=== PATIENT | male | born 1945 | race Caucasian/White ===

== ENCOUNTER 2023-08-28 12:19 | Outpatient (OUT) | payer MEDICARE, OTHER, SELFPAY ==
--- NOTE | 2023-08-28 12:41 | CT_ITS ---
[address] [address] Patient Name: [place] MCMAHAN MRN: [id number] date: 1945 Sex: M Assigned Patient Location: LAB Current Patient Location: Accession/Order Number: [id number] Exam Date: 08/28/2023 13:15 Report Date: 08/29/2023 06:25 At the request of: WAYLON LEE Procedure: CT abdomen pelvis wo/w con EXAMINATION: CT abdomen pelvis wo/w con HISTORY: Gross Hematuria R31.0 COMPARISON: No relevant comparison available. TECHNIQUE: Axial, Coronal, and Sagittal images were obtained without and/or with IV contrast as indicated by examination type. Dose reduction techniques were achieved by using automated exposure control and/or adjustment of mA and/or kV according to patient size and/or use of iterative reconstruction technique. FINDINGS: LUNG BASES: No visible pulmonary or pleural disease. LIVER: No enlargement, atrophy, suspicious density, or significant focal lesion. BILIARY: No dilatation or calcification. PANCREAS: No lesion, fluid collection, or abnormal duct dilatation. SPLEEN: No enlargement or focal lesion. ADRENALS: No mass or enlargement. KIDNEYS: No mass, obstruction, or calcification. BOWEL/MESENTERY: No visible mass, obstruction, or bowel wall thickening. AORTA/VASCULAR: 4.1 cm fusiform aneurysmal dilation of infrarenal aorta. Mild atherosclerotic disease. RETROPERITONEUM: No mass or adenopathy. LYMPH NODES: No adenopathy. URINARY BLADDER: No visible focal wall thickening, lesion, or calculus. PELVIC ORGANS: No visible mass. Pelvic organs appropriate for patient age. ABDOMINAL WALL: No mass or hernia. BONES: No bony lesion or fracture. OTHER: Negative. CT/CT abdomen pelvis wo/w con IMPRESSION: 1. No urinary tract calculi, mass, obstructive uropathy. 2. 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 3. Unremarkable urinary bladder. No specific findings to account for patient's symptoms. Electronically authenticated by: ROQUE HERNANDEZ Date: 08/29/2023 06:25
[2023-08-28 12:50] LABS: Estimated GFR (African America 56 (>=60); Estimated GFR (Non-African Ame 46 (>=60)
== END 2023-08-28 12:20 | disposition home or self-care (01) ==
LOC: LAB 12:24
PROVIDERS: PCP Family Medicine; Visit Provider Nurse Practitioner
DX: C61 Malignant neoplasm of prostate (principal); R31.0 Gross hematuria; N20.0 Calculus of kidney; I71.9 Aortic aneurysm of unspecified site, without rupture
CPT/HCPCS: 36415; 74178; 82565; 84520; Q9966

== ENCOUNTER 2023-09-19 08:23 | Day surgery (SDC) | payer MEDICARE, OTHER, SELFPAY ==
[2023-09-19 09:30] VITALS: BP 131/58; BP 134/65; PULSE 53; PULSE 84; O2SAT 100
[2023-09-19] MEDS: LIDOCAINE 2% JELLY 10 ML UR (09:31)
--- NOTE | 2023-09-19 09:52 | PM.URSON ---
Urology Surgery Operative Note Operative Note Procedure Date: 09/19/23 Time Out Performed: yes Pre-op Diagnosis: History of high-grade invasive TCC of the bladder Post-op Diagnosis: same as pre-op Procedures performed: 1. Cystoscopy. 2. Bladder wash for cytology and FISH. Anesthesia: local Primary Surgeon: Akbar Morales Complications: None Estimated blood loss (mL): 0 Findings: No bladder tumors. Specimens: Bladder wash for cytology and FISH Indications for Procedures: This gentleman has a history of high-grade noninvasive TCC of the bladder diagnosed in . He did have a recurrence in 21 which was high-grade noninvasive. He has undergone BCG treatments. The last one was about a year ago. He now presents for an annual surveillance cystoscopy. He has signed an informed consent after risks were explained. Detailed description of Procedure: The patient was kept on the gurney bed and brought into the Endo suite. He was in the supine position. Timeout was done by all parties in the room. We all agreed upon the patient's identification and the planned procedures for this patient. Genitalia were sterilely prepped and draped in the usual fashion. 2% lidocaine gel was passed per urethra. I started by passing a flexible cystoscope per urethra and into the bladder. The anterior urethra was normal. The prostatic urethra showed bilobar obstruction. Panendoscopy in the bladder revealed high-grade trabeculation with open diverticuli formation. There was no evidence of tumor formation or mucosal lesions. The scope was retroverted upon itself and no new findings were noted. A vigorous wash was taken and sent for cytology and FISH. The scope was then removed. He was then discharged to home.
== END 2023-09-19 09:59 | disposition home or self-care (01) ==
PROVIDERS: PCP Family Medicine; Visit Provider Urology
PROC: (CPT 51700; principal; 2023-09-19 09:10)
DX: R31.0 Gross hematuria (principal); Z85.46 Personal history of malignant neoplasm of prostate; C67.9 Malignant neoplasm of bladder, unspecified; N32.89 Other specified disorders of bladder; I10 Essential (primary) hypertension; E78.5 Hyperlipidemia, unspecified; K21.9 Gastro-esophageal reflux disease without esophagitis; Z87.891 Personal history of nicotine dependence
CPT/HCPCS: 51700; 52000; 88112; 99999

== ENCOUNTER 2024-12-11 10:20 | Outpatient (OUT) | payer MEDICARE, SELFPAY ==
--- OUTSIDE RECORDS SUMMARY | 2024-12-11 05:14 | XMS_ITS | Continuity of Care Document ---
Author Organization [facility] Address [address] [place] [address] Phone Care Team Providers Care Union Carpenter Name Role Phone Matt Black DO Primary Care Provider Altaf Das MD Attending Provider Carlo Pichardo Referring Provider [phone] Lashawn Pineda APRN Attending Provider Juan Miguel Golden PA-C Emergency Provider [phone] Ena Lozoya Attending Provider Unavailab Radha Jones MD Attending Provider Matt Black DO Attending Provider [phone] Carlo Pichardo Attending Provider [phone] Care Teams Patient Care Team Team Status: Active Member Role/Relationship Status Dates Radha Ames MD Home Appliance Tech Active Rachel Alvarenga Care ProviderActive Visit Care Team Team Status: Inactive Member Role/Relationship Status Dates Matt Black DO Primary Care Provider Active S tart: September 19, 2024 End: September 19, 2024Erika Pollockending ProviderActiveStart: September 19, 2024 End: September 19, 2024 Visit Care Team Team Status: Active Member Role/Relationship Status Dates Matt Black DO Primary Care Provider Active S tart: September 19, 2024 Altaf Das , MDAttending ProviderActiveStart: September 19, 2024 Bud Neely ProviderActiveStart: September 19, 2024 Visit Care Team Team Status: Inactive Member Role/Relationship Status Dates Matt Black DO Primary Care Provider Active S tart: October 17, 2024 End: October 17, 2024Lashawn Pineda APRN NP-CAttending Provider ActiveStart: October 17, 2024 End: October 17, 2024 Visit Care Team Team Status: Inactive Member Role/Relationship Status Dates Matt Black DO Primary Care Provider Active S tart: October 21, 2024 End: October 21, 2024BRIDGET Mock-Emmanuelle ProviderActiveStart: October 21, 2024 End: October 21, 2024 Visit Care Team Team Status: Active Member Role/Relationship Status Dates Matt Black DO Primary Care Provider Active S tart: October 22, 2024 ELAN PathakAAttenilan ProviderActiveStart: October 22, 2024 Visit Care Team Team Status: Inactive Member Role/Relationship Status Dates Matt Black DO Primary Care Provider Active S tart: November 07, 2024 End: November 07, 2024Erika Martinezending ProviderActiveStart: November 07, 2024 End: November 07, 2024 Visit Care Team Team Status: Inactive Member Role/Relationship Status Dates Matt Black DO Primary Care Provider Active S tart: November 07, 2024 End: November 07, 2024Radha Ames MDAttending ProviderActiveStart: November 07, 2024 End: November 07, 2024 Visit Care Team Team Status: Inactive Member Role/Relationship Status Dates Matt Black DO Primary Care Provider Active S tart: November 25, 2024 End: November 25, 2024Dasingh Black DOAttoh ProviderActiveStart: November 25, 2024 End: November 25, 2024 Visit Care Team Team Status: Inactive Member Role/Relationship Status Dates Matt Black DO Primary Care Provider Active S tart: November 26, 2024 End: November 26christo Pichardo MDAttending ProviderActiveStart: November 26, 2024 End: November 26, 2024 Patient Care Team Team Status: Inactive Member Role/Relationship Status Dates Matt Black DO Primary Care Provider Active S tart: December 11, 2024 End: December 11, 2024Dasingh Black DOAttending ProviderActiveStart: December 11, 2024 End: December 11, 2024 Chief Complaint and Reason for Visit Chief Complaint Admit Date Follow Up 6 Months September 19, 2024 10 :28am Bence Long Proteinuria September 19 10:29am Left forearm abrasion October 17 9:13am Large lump on lt arm October 21 3:37pm Amb Documentation October 22, 2024 11:38am 6 month f/u November 07, 2024 12 :49pm I48.91 November 07, 2024 12 :53pm Z12.11 November 25, 2024 6 :00pm d50.9 d64.9 e78.5 r73.9 r64.4 z79.899 Oc tob2024 8:49am review labs December 11, 2024 9 :14am Reason for Visit Admit Date Anemia of renal disease September 19 10:28am Bence Long protein September 19, 2024 10 :28am CKD (chronic kidney disease) stage 3, GF R 30-59 ml/min September 19, 2024 10:28am Proteinuria September 19, 2024 10 :28am Skin tear October 17, 2024 9:13am CKD (chronic kidney disease) stage 3, GF R 30-59 ml/min November 07, 2024 12:49pm Hyperlipidemia November 07, 2024 12 :49pm Hypertension November 07, 2024 12 :49pm Irregular heart beat November 07, 2024 1 2:49pm Persistent atrial fibrillation November 072024 12:49pm Abnormal thyroid stimulating hormone (TS H) level December 11, 2024 9:14am Anemia December 11, 2024 9 :14am Atrial fibrillation December 11, 2024 9 :14am Elevated alkaline phosphatase level Nove 2024 9:14am Elevated PSA December 11, 2024 9 :14am Hyperglycemia December 11, 2024 9 :14am Hyperlipidemia December 11, 2024 9 :14am Hypertension December 11, 2024 9 :14am Lumbar pain December 11, 2024 9 :14am Other abnormal blood chemistry December 11, 2024 9:14am Positive fecal occult blood test Novembe r 2024 9:14am Weight gain December 11, 2024 9 :14am Allergies, Adverse Reactions, Alerts Allergen Type Severity Reaction Last Updated Verified Status Comments nafcillin Adverse Reaction Severe Unknown Reaction December 11, 2024 9:21am Yes Active [place] Social History Smoking Status Status Start Date End Date Date of Observa tion Ex-smoker (finding) October 21, 2024 6:09pm Observation Status Observation Response Date of Response Legal Sex Male (finding) Sex Assigned At BirthMaleJuly 1945 Family History Relationship Condition Age at Onset Recorded Date/T vanessa father Unknown CardiomyopathyUnknownmotherDeceasedUnknownDiabetes mellitusUnknownbrotherAtrial fibrillationUnknown Problems Active Problems Problem Diagnosis/Recorded Date Onset Date Stat us Irregular heart beat June 27, 2023 9:01am Unknown Active Elevated PSA June 26, 2023 4:53pm Unknown Active Elevated alkaline phosphatase level June 27, 2023 8:3 7am Unknown Active Acute cough June 11, 2024 1:24pm Unknown Active Secondary hyperparathyroidism June 26, 2023 4:53pm Un known Active Shortness of breath June 27, 2023 8:50am Unknown Active Hemoptysis May 06, 2017 1:06pm Unknown Acti ve Bladder cancer April 19, 2023 10:29am Unknown A ctive Bence Long protein January 01, 2024 9:39pm Unknown Active CKD (chronic kidney disease) stage 3, GFR 30-59 ml/min June 26, 2023 4:53pm Unknown Active Anemia June 27, 2023 8:36am Unknown Active Atrial fibrillation July 31, 2023 10:34am Unknown Active Hypertensive chronic kidney disease with stage 1 through stage 4 chronic kidney disease, or unspecified chronic kidney disease December 18, 2023 7:57am Unknown Active Hyperglycemia June 27, 2023 8:36am Unknown Activ e Hyperlipidemia April 19, 2023 10:20am Unknown A ctive Hyperuricemia December 18, 2023 7:58am Unknown Active Other abnormal blood chemistry June 27, 2023 8:37am U nknown Active Proteinuria December 18, 2023 7:58am Unknown A ctive Laceration of left lower ext remity excluding thigh July 27, 2023 12:42pm Unknown Active Skin tear October 17, 2024 8:45am Unknown Active Weight gain December 11, 2024 9:46am Unknown Ac tive Abnormal thyroid stimulating hormone (TSH) level December 11, 2024 9:47am Unknown Active Persistent atrial fibrillation August 28, 2023 4:17pm Unknown Active Body aches June 11, 2024 1:28pm Unknown Active Prediabetes December 18, 2023 7:58am Unknown A ctive Lumbar pain December 11, 2024 9:43am Unknown Ac tive Foot drop, right April 19, 2023 10:30am Unknown Active Positive fecal occult blood test December 11, 2024 9: 33am Unknown Active Abdominal aortic aneurysm (A AA) 3.0 cm to 5.5 cm in diameter in male January 02, 2024 12:28pm Unknown Ac tive Anemia of renal disease December 18, 2023 7:57am Unk nown Active Hypertension April 19, 2023 10:20am Unknown Act zelalem Inactive/Resolved Problems Problem Diagnosis/Recorded Date Onset Date Stat us [place] (acute kidney injury) June 18, 2024 5:58pm Unknow n Resolved Elevated brain natriuretic p eptide (BNP) level June 27, 2023 12:15pm Unknown Resolved Fatigue June 27, 2023 8:50am Unknown Resolv ed Hematoma October 21, 2024 5:07pm Unknown Resolved Cough June 18, 2024 5:54pm Unknown Resolv ed Abnormal laboratory test June 18, 2024 5:54pm Unknown Resolved GERD (gastroesophageal reflu x disease) June 26, 2023 4:53pm Unknown Resolved Atrial fibrillation with RVR June 27, 2023 11:51am Un known Resolved Contusion of knee, left January 15, 2024 2:42pm Unkn own Resolved Hypomagnesemia June 27, 2023 12:16pm Unknown Res olved Medications Medication Status Dose Units Route Directions Qty Days Refills S tart Date Stop Date End Date Reason(s) Instructions Adherence Omeprazole 40 mg capsule,delayed release(DR/EC) Discontinued 40 MG PO Daily April 17, 2023 9:42amMarch 2023 9:43amOmeprazole 40 mg capsule,delayed release(DR/EC)Arifboraqjqo79VFAPDnspw588Xerdq 2023 9:43amMarch 2024 9:15amRivaroxaban (Xarelto) 20 mg afqniaNmqsgmjnqcnk58WJTXWvkca sqfrzgx76767Mmt 2023 11:00pmMay 2023 3:25pmmust administer with evening mealApixaban (Eliquis) 5 mg qcmprjNvfocnugnnis4LBGGLtqnn fpyti628308Puvj 2023 11:51am July 31, 2023 9:16amRivaroxaban (Xarelto) 20 mg nujywgOdojlaoqazcd97QZDGUkafm kixcavd38342Agur 2023 10:50amJuly 2023 9:12ammust administer with evening mealRivaroxaban (Xarelto) 20 mg dkgywxZxetbzljrgyk01IUWUQltwh sxyagox82 903July 2023 9:11amJanuary 2024 12:43pmmust administer with evening mealRosuvastatin 10 mg zrzpjkWeivnbrnolhj39FAXAPudqw700Kexeuv 2023 10:33am June 10, 2024 11:03amAmlodipine 10 mg amskgdLhzdmleclgth93UEXYBbkfj92188Wgivlw 2023 12:49pmFebruary 2024 10:49amAmiodarone 200 mg tabletDiscontinued 739YUDTRgkfq04637Oaiuyt 2023 8:15amNovember 2023 3:53pmMetoprolol Succinate 25 mg tablet extended release 24 ziVblzzxhiuzwg58XHAJJkxhl88075 October 23, 2023 7:27amMarch 2024 11:11amAmiodarone 200 mg tablet Wsveuhlgxcce478VLCVGrqdv15910Arsatysf 11th, 2024 3:53pmFebruary 2024 1:05pmLisinopril 5 mg lhwajrFzovnebkdlzj3FKVJGzqxm812Ocqnedlv 2023 2:42pm December 11, 2024 10:10amRivaroxaban (Xarelto) 20 mg igyaqsHnmxhr95OHZBYchqn tmuvqdv54180Aheolym 2024 12:42pmmust administer with evening mealComplies with drug therapyAmlodipine 10 mg fivscdDeqldkmjkdaz77YJEAQmrym80695Woderyxr 2024 10:48amMay 2024 10:44amAmiodarone 200 mg lrkvikSgrdzeotgpbj033BG EUXrlvs84580Edieuhcv 2024 1:05pmApril 2024 8:27amMetoprolol Succinate 25 mg tablet extended release 24 cgGogdkftjjqjr26KJTSEmrnj73590Pfqyt 2024 11:11amSeptember 2024 2:24pmOmeprazole 40 mg capsule,delayed release(DR/EC)Ygbbmj03MWZJInjey194Tzerd 2024 9:15amComplies with drug therapyAmiodarone 200 mg ewgkymCtxcaqasdzpl730TMZAKzbzv12263Iaaqo 2024 8:27amJuly 2024 8:51amAmlodipine 10 mg khoeqzJdneod68ZOCKQmoka48213Psc 2024 10:44amComplies with drug therapyRosuvastatin 10 mg tabletDiscontinued 0.ROUTE.LWBCAVM298Fqh 5th, 2025 11:03amMay 2024 8:11amTake 1 tablet by mouth once dailyPrednisone 20 mg mwtbmmLfovspcwhjcc2FE.with food or dtur8460DqlJune 11, 2024 3:01pmMay 2024 8:09amtake 3 tablets a day x3 days, 2 tabs a day x3 days and then 1 tab a day x3 days orally WITH FOOD ORMILK;Benzonatate 100 mg cwjezgvJupoqg6TSIzxnp times pnoyc038Njr2024 3:02pmtake 2 (100 MG) capsules orally three times daily;Complies with drug therapyAmiodarone 200 mg tablet Vhupdm180IAAZUztim02131Dozo 2024 8:51amComplies with drug therapy Metoprolol Succinate 25 mg tablet extended release 24 jnZirssljumhqd23WCZTYtrsa 38377Quvddbeut 2024 2:24pmNov2024 9:48amSod Picosulf-Mag Ox- Citric Ac (Clenpiq) 10 mg-3.5 gram- 12 gram/175 mL wviwjoswBvmlrototqki942OXTW Ppgbx73596Lqcyfak 2024 11:00pmNovember 2024 9:22amTake the first dose at 3:00 p.m. the day before the colonoscopy, take the second dose at 9:00 p.m. t he day before the colonoscopyMetoprolol Succinate 25 mg tablet extended release 24 cbVqtjppwugziu44PQWDVnapy92506Xdey 23rd, 2024 11:00pmSeptember 2023 7:28amRivaroxaban (Xarelto) 20 mg txbuboIbgecvstrgho47GAXPKcvwo qmaijgr41634Pamg 23rd, 2024 11:00pm[facility]20[facility] 10:51ammust administer with evening meal Amlodipine 5 mg YmwfwxUjbizjkyigbu3DSGHOzpmdAvmdy 2017 11:00pmJuly 2023 3:01pmOmeprazole 40 mg Capsule,Delayed Release(Dr/Ec)Xmpqsidrpfln75FGDM DailyAccess [facility] 2017 11[facility]00pm[facility] 2023 9:42amAspirin 81 mg Tablet,Delayed Release (Dr/Ec)Kvccbmoaygcr25OEFAVzmqmNlejr 2017 11:00pmOsage 2023 8:27amMinocycline 100 mg YhgvxhYkmhvcwvyeub538GYWOXjngjEywdy 2017 11:00pm April 19, 2023 9:31amRosuvastatin 5 mg MwhdzkRvtkicxyvkkq8WZAGCpjtmJuhca 2017 11:00pm[facility] 2023 9:30amAmoxicillin-Pot Clavulanate (Augmentin) 875- 125 mg rtrhzjWlwwolgppxxl5CEXJLBmodz zkuot838Fjoiy 2017 11:00pm[facility] 2023 10:14amApixaban (Eliquis) 5 mg VxcmuxDmmrspejvngr4LDCBHdrit ugkya28145XffJune 29, 2023 11:00pm[facility]2023 11:51amMetoprolol Succinate 50 mg Tablet Extended Release 24 MgChlozpbbkyda15JGHAKprfm ixuaq12483Dnq 2023 11:00pm July 31, 2023 9:18amAmiodarone 200 mg cxqfpcGcfxlijxedmm897ZASHQjywd somvz4877 0June 29, 2023 11:00pm[facility]2023 9:17amAmiodarone 200 mg tablet Xndgbjnijymt398GSYISpsrh82926Jqp 2023 11:00pmAugust 2023 8:15am Hydrocodone-Acetaminophen 5-325 mg wouwefHqguyuagxrgs8TXZHKVahar 6 hours as needed for znys0315Txmadmqj 2023May 2024 1:12pmContusion of left knee Contusion of left knee, initial encounterLisinopril 5 mg cmnxhuBvgkzylpvwpo5PJVP Dailyy 2023 11:00pmDecember 2023 2:42pmCoenzyme Q10 (Co Q-10) 100 mg wjpunbzWqtpiytyebzg159FUYFXwawuWia 2023 11:00pmMay 2024 8:11am Zinc and vitamin cDiscontinuedPOy 2023 11:00pmJuly 2023 2:08pm probioticDiscontinuedPOMay 2023 11:00pmJuly 2023 2:07pmVitamin d 3 DiscontinuedPOJune 26, 2023 11:00pmJuly 2023 2:07pmMinocycline 100 mg wgdgujjPcrbuf788KZIYPtbsqQvx 2023 11:00pmComplies with drug therapy Diphenhydramine-Acetaminophen (Tylenol Pm Extra Strength) 25-500 mg tabletActive 1TABPODaily at bedtime as needed for sleepJune 26, 2023 11:00pmComplies with drug therapyCoenzyme Q10 (Co Q-10) 100 mg cxsdmrdJiciup381SGUMAzgmaPfa 2024 8:08amComplies with drug therapyZinc Acetate 50 mg (zinc) vowsszfRfbqog07NX PODailyJuly 2023 11:00pmComplies with drug therapyAscorbate Calcium (Vitamin C) 500 mg zqjdktVegcgw834NAEBIrxbbLcek 2023 11:00pmComplies with drug therapyCholecalciferol (Vitamin D3) 125 mcg (5,000 unit) urjdrjzAbguhz945 MCGPODailyJuly 2023 11:00pmComplies with drug therapyAmlodipine 10 mg ptdacmBgwptzckzyxx13VCBKUgfqw58946Wpim 2023 11:00pmAugust 2023 12:50pmRosuvastatin 10 mg thzcwnNnavsu64ZTCQYqnneOwi 2024 8:09amComplies with drug therapyAscorbic Acid (Vitamin C) 500 mg bdarnidViiimifekkhi2ROHCFRt DirectedMarch 2023 11:00pmOctober 2023 12:25pmFreeTextSig: as directed Orally; Note: Source Status: Taking; Provider: Jeremy Birmingham Rosuvastatin 10 mg klzuclSlmpmssfwhqt1GUEJJDsohqOmmts 2023 11:00pmMay 2023 8:52amFreeTextSig: Take 1 tablet by mouth once daily for 90 days; Note: Source Status: Taking; Provider: Wayne Gutierrez ( ) Minocycline 50 mg capsuleDiscontinuedMGPOMarch 2023 11:00pmMay 2023 8:32amFreeTextSi capsule Orally qd; Note: Source Status: Taking; Provider: Marino Gomes ( )Acetaminophen (Tylenol Arthritis Pain) 650 mg tablet extended wxvmhccNlogou5HCEYYXhgwa 8 hoursMarch 2023 11:00pm FreeTextSi tablets as needed Orally every 8 hrs; Note: Source Status: Taking; Provider: Marino Gomes ( )Complies with drug therapy Gabapentin 600 mg afzmzgQsluqypppuwa1ZMQJAGuvzcCilkr 2023 11:00pmMarch 2023 10:15amFreeTextSi tablet Orally Once a day; Note: Source Status: Taking; Provider: Marino Gomes ( )Pziojjvp-Qdi-Nehnk-Vit K-Lycop (Men's 50 Plus Multivitamin) 400-20-370 mcg dffooqQpnets0SPDXJYuclyFizuf 2023 11:00pmComplies with drug therapyOmega 7-Nhg-Yxw-Fish Oil (Fish Oil) 1,200 (144-216) mg nuejkyfJkbzsx5JLEAUCujgqPnozv 2023 11:00pmComplies with drug therapyMinocycline 50 mg ihslvqlWycbjiuzgkxr76CHKIHrd 2023 8:31amMay 2023 8:51amRosuvastatin 10 mg zvccndYekzwnrgnvir52XMVZLfpgbJyd 2023 8:52am September 20, 2023 10:33amTamsulosin 0.4 mg capsuleDiscontinuedMGPOMay 2024 11:00pmMay 2024 8:55amFinasteride 5 mg qeebmiLqcpus7WVXAOaepsFtd 5th, 2025 11:00pmComplies with drug therapyPrednisone 20 mg wnfnreHjtqcttpvksf6DK.with food or nxyw5444QnhJune 10, 2024 11:00pmMa2024 3:01pmtake 3 tablets a day x3 days, 2 tabs a day x3 days and then 1 tab a day x3 days orally WITH FOOD ORMILK; Benzonatate 100 mg redetdpUqkmghrvbnyd1YBAmlhn times yamns476PmqJune 10, 2024 11:00pmMa2024 3:02pmtake 2 (100 MG) capsules orally three times daily; Metoprolol Succinate 25 mg tablet extended release 24 nbBvxxqo66.6LCQWKrvwx71780 December 11, 2024 9:42amComplies with drug therapyLisinopril 5 mg tabletActive5 WOUOJdnmx400Vdwbdexc 5th, 2025 10:10amComplies with drug therapyMupirocin 2 % vusovpbrHecgkqnlzlmb5CTZTSIZLBENZWUitmr ulmkf936Eaneobnps 10th, 2025 11:00pm December 11, 2024 9:23am Immunizations Immunization Event Date Not Given Reason Dose Number Billing Checker Lot Number Reason(s) Given Vaccine Information Statement (VIS) Detail Administration Location BCG: Bacillus calmette-nithin October 06, 2021 BCG: Bacillus calmette-guerinSeptember G: Bacillus calmette-nithin October 20CG: Bacillus calmette-guerinAugust CG: Bacillus calmette-guerinAugust CG: Bacillus calmette-guerinAugust 2022 BCG: Bacillus calmette-guerinOctober CG: Bacillus calmette-nithin November 26CG[facility] 2023Fluzone TIV High-Dose 65YR+March 20, 2015Fluzone TIV High-Dose 65YR+December 19, 2017 Fluzone QIV High-Dose 65YR+November 21, 2020Influenza, trivalentNovember 2023Influenza vaccine, quadrivalent, adjuvantedOctober 2022Influenza vaccine, quadrivalent, adjuvantedNovember 2019Influenza vaccine, quadrivalent, adjuvantedNovember 2021influenza, unspecified formulation December 19, 2017Pneumococcal Conjugate Vaccine, 13 valentOctober 2019 Pneumococcal Conjugate Vaccine, 13 valentNovember 2019Pneumococcal Polysacc. Vaccine, 23 valentOctober 2015Pneumococcal Polysacc. Vaccine, valentFebruary 2015Zoster Vaccine Recombinant, AdjuvantedOctober 2022Zoster Vaccine Recombinant, AdjuvantedJanuary 2023Tetanus, Diphtheria adult, 5 Lf pres free absFebruary 2021Tetanus, Diphtheria, Pertussis (Tdap)September 26, 2012 Procedures Procedure Date Performed Status XR bone survey February 02, 2024 1:29pm compl eted Occult Blood (FIT) November 26, 2024 cancelled Occult Blood (FIT) November 25, 2024 completed Relevant Diagnostic Tests and/or Laboratory Data Laboratory Results Test Collection Date/Time Result Date/Time Result Interpretation Reference Range Result Comment Performing Site Corrected White Blood Count September 12, 2024 8:21am September 12, 2024 8:50am 6.9 10*3/uL 4.1-10.5[facility] [id number] [address] [facility] [address]Aabzqarmz White Blood CountNovember 26, 2024 8:30amOct2024 9:09am6.8 10*3/uL4.1-10.5FMercy [facility] [id number] [address] [facility] [address]Oatnesktoem WBC CountAugus2024 8:21amAugu2024 8:50am6.9 10*3/uL4.1-10.5FS[facility] [id number] [address] [facility] [address]Hyfarpgcyrq WBC CountOctober 2024 8:30amOctober 2024 9:09am6.8 10*3/uL4.1-10.5FS[facility] [id number] [address] [facility] [address]Qlw Blood CountAugust 2024 8:21amAugust 2024 8:50am 3.86 10*6/uLBelow low normal3.90-5.60[facility] [id number] [address] [facility] [address]Rso Blood CountOctober 2024 8:30amOctober 2024 9:09am4.03 10*6/uL3.90-5.60[facility] [id number] [address] [facility] [address]UfmpyjhefeSmcsmx 2024 8:21amAugust 2024 8:50am11.0 g/dLBelow low .0-17.0[facility] [id number] [address] [place] [address]PgixggkrbkOhvbmpf 2024 8:30amOctober 2024 9:09am 11.6 g/dLBelow low uicwnv85.0-17.0[facility] [id number] [address] [place] [address]WewlcpjuuoBsunvy 2024 8:21amAugust 2024 8:50am33.9 % Below low yqvmau29.8-50.0[facility] [id number] [address] [place] [address]EeipqosdsbKtmqktd 2024 8:30amOctober 2024 9:09am 35.1 %Below low cwxfif82.8-50.0[facility] [id number] [address] [place] [address]Innn Corpuscular VolumeAugust 2024 8:21amAugust 2024 8:50am88.0 fL83.5-101[facility] [id number] [address] [facility] [address]Qpty Corpuscular VolumeOctober 2024 8:30amOctober 2024 9:09am87.2 fL83.5-101[facility] [id number] [address] [place] [address]Ftwo Corpuscular HemoglobinAugust 2024 8:21amAugust 2024 8:50am28.5 pg27.5-35.2FSCC[facility] [id number] [address] [place] [address]54[address]Bgzs Corpuscular HemoglobinOctober 2024 8:30amOctober 2024 9:09am28.8 pg27.5-35.2FS[facility] [id number] [address] [place] [address]28[address]Ngqt Corpuscular Hemoglobin ConcentAugust 2024 8:21am September 12, 2024 8:50am32.5 g/dL32.5-35.6FS[facility] [id number] [address] [place] [address] 737[address]Ukzi Corpuscular Hemoglobin ConcentOctober 2024 8:30am October 2024 9:09am33.0 g/dL32.5-35.6FS[facility] [id number] [address] [place] [address]Riy Cell Distribution WidthAugust 2024 8:21amAugust 2024 8:50am16.0 %Above high ruqkbh97.0-14.8[facility] [id number] [address] [place] [address] 86424Ggz Cell Distribution WidthOctober 2024 8:30amOctober 2024 9:09am17.2 %Above high jotnhm43.0-14.8[facility] [id number] [address] [place] [address]Cmttwtuc CountAugust 2024 8:21amAugust 2024 8:89uj519 10*3/fD514-755DmgpnnfsyLouis [facility] [id number] [address] [place] [address] 1949[address]Chgutwii CountOctober 2024 8:30amOctober 2024 9:35kr308 10*3/yD655-549WihzpwvtyLouis [facility] [id number] [address] [facility] [place] [address]Etmb Platelet VolumeAugust 2024 8:21amAugu2024 8:50am8.5 fL6.6-10.1FS[facility] [id number] [address] [facility] [place] [place] [address]Leya Platelet VolumeOctober 2024 8:30amOctober 2024 9:09am8.9 fL6.6-10.1FS[facility] [id number] [address] [facility] [place] [address]Yrjzhcrhrpf (%) (Auto)September 12, 2024 8:2024 8:50am68.6 %.[facility] [id number] [address] [facility] [place] [address]Nynjrvkbtgt (%) (Auto)November 26, 2024 8:30amOctober 2024 9:09am70.9 %.[facility] [id number] [address] [facility] [place] [address]Nnkawwfwyai (%) (Auto)September 12, 2024 8:2024 8:50am13.4 %.[facility] [id number] [address] [facility] [place] [address]Dqdpmlnyxsg (%) (Auto)November 26, 2024 8:30amOctober 2024 9:09am13.7 %.[facility] [id number] [address] [facility] [place] [address]Geocbhdsi (%) (Auto)September 12, 2024 8:amA2024 8:50am14.3 %.[facility] [id number] [address] [facility] [place] [address]Scmfpdwzs (%) (Auto)November 26, 2024 8:30amOctober 2024 9:09am10.3 %.[facility] [id number] [address] [facility] [place] [address]Faphoplepkl (%) (Auto)September 12, 2024 8:amAugu2024 8:50am3.0 %.[facility] [id number] [address] [facility] [address]Huldxgfsvim (%) (Auto)November 26, 2024 8:30amOctober 2024 9:09am4.1 %.[facility] [id number] [address] [facility] [address]Vbbjulnqe (%) (Auto)September 12, 2024 8:212024 8:50am0.7 %.[facility] [id number] [address] [facility] [address]Xepillkse (%) (Auto)November 26, 2024 8:30amOctober 2024 9:09am1.0 %.[facility] [id number] [address] [facility] [address]Tnaoaclrj RBC Relative Count (auto)September 12, 2024 8:21am September 12, 2024 8:50am0.0 /100{WBC}0-0.5FS[facility] [id number] [address] [facility] [address]Oaqapecil RBC Relative Count (auto)November 26, 2024 8:30am November 26, 2024 9:09am0.1 /100{WBC}0-0.5FS[facility] [id number] [address] [facility] [address]Jcrxihlvrwc # (Auto)September 12, 2024 8:212024 8:50am4.7 10*3/uL1.8-7.7[facility] [id number] [address] [facility] 81901Ggfigrexevo # (Auto)November 26, 2024 8:30amOctober 2024 9:09am4.8 10*3/uL1.8-7.7[facility] [id number] [address] [facility] 52342Cchahfbupft # (Auto)September 12, 2024 8:21amAugu2024 8:50am0.9 10*3/uLBelow low normal1.00-4.8[facility] [id number] [address] [facility] 98627Yiqrkflnube # (Auto)November 26, 2024 8:30amOctober 2024 9:09am0.9 10*3/uLBelow low normal1.00-4.8[facility] [id number] [address] [facility] 55385Pvnghkffy # (Auto)September 12, 2024 8:21amAugu2024 8:50am1.0 10*3/uLAbove high normal0.0-0.8[facility] [id number] [address] [facility] 68362Alejyrzqr # (Auto)November 26, 2024 8:30amOctober 2024 9:09am0.7 10*3/uL0.0-0.8[facility] [id number] [address] [place] [id number] # (Auto)September 12, 2024 8:21amAugust 2024 8:50am0.2 10*3/uL0.0-0.45[facility] [id number] [address] [facility] 47744Xaclavjciye # (Auto)November 26, 2024 8:30amOctober 2024 9:09am0.3 10*3/uL0.0-0.45[facility] [id number] [address] [place] [id number] # (Auto)September 12, 2024 8:21amAugu2024 8:50am0.0 10*3/uL0.0-0.2[facility] [id number] [address] [facility] 56645Kgvxnajue # (Auto)November 26, 2024 8:30amOctober 2024 9:09am0.1 10*3/uL0.0-0.2[facility] [id number] [address] [facility] 71733Gloto ColorOctober 2024 8:33amOctober 2024 9:11am YellowYellowLouis Stokes [facility] [id number] [address] [place] [id number] AppearanceOctober 2024 8:33amOctober 2024 9:11amClearClearFSCCI Hospital [facility] [id number] [address] [facility] 96033Imiyg Specific GravityOctober 2024 8:33amOctober 2024 9:11am1.0271.001-1.030[facility] [id number] [address] [facility] 67868Pydhr pHOctober 2024 8:33amOctober 2024 9:11am5.5 5.0-9.0[facility] [id number] [address] [facility] 23756Dkhpv Leukocyte EsteraseOctober 2024 8:33amOctober 2024 9:11amNegativeNegativeLouis [facility] [id number] [address] [facility] 84484Oieye NitriteOctober 2024 8:33amOctober 2024 9:11am NegativeNegativeLouis [facility] [id number] [address] [facility] 18033Thumh ProteinOctober 2024 8:33amOctober 2024 9:11am Trace mg/dLAbove high normalNegK[facility] [id number] [address] [facility] 84088Jdvon Glucose (UA)November 26, 2024 8:33amOctober 2024 9:11amNormal mg/dLNormalLouis [facility] [id number] [address] [facility] 79044Dwtnk KetonesOctober 2024 8:33amOctober 2024 9:11am NegativeNegativeLouis [facility] [id number] [address] [facility] 14972Jmbqe UrobilinogenOctober 2024 8:33amOctober 2024 9:11amNormal mg/dLNormalLouis [facility] [id number] [address] [facility] 80308Bhvgb BilirubinOctober 2024 8:33amOctober 2024 9:11amNegativeNegativeLouis [facility] [id number] [address] [facility] 12823Uzsny Occult BloodOctober 2024 8:33amOctober 2024 9:11amNegativeNegativeLouis [facility] [id number] [address] [facility] 86427Uopvf RBCOctober 2024 8:33amOctober 2024 9:87hd7-3 [HPF]0-4[facility] [id number] [address] [facility] 28625Npfzo WBCOctober 2024 8:33amOctober 2024 9:59gv6-5 [HPF]0-4[facility] [id number] [address] [facility] 57242Kiacz Squamous Epithelial CellsOctober 2024 8:33amOctober 2024 9:14amN/AFSCC[facility] [id number] [address] [facility] 45020Ixrml BacteriaOctober 2024 8:33amOctober 2024 9:14amNone seen [HPF]None SeenLouis [facility] [id number] [address] [facility] 75404Fixhx Hyaline CastsOctober 2024 8:33amOctober 2024 9:27vg2-1 [LPF]0-8[facility] [id number] [address] [facility] 17480Ncfto MucusOctober 2024 8:33amOctober 2024 9:14am Rare [LPF][facility] [id number] [address] [facility] 58661Uraudqa LevelAugust 2024 8:21amAugust 2024 9:29am86 mg/gC75-979VSG recommended reference rangeRandom Glucose Reference Range is dependent on time and content of last meal. Glucose of more than 200 mg/dL in a nonstressed, ambulatory subject supports the diagnosisof Diabetes Mellitus. [facility] [id number] [address] [facility] 97025Qsqdisi LevelOctober 2024 8:30amOctober 2024 9:49am 93 mg/qW36-392IEC recommended reference rangeRandom Glucose Reference Range is dependent on time and content of last meal. Glucose of more than 200 mg/dL in a nonstressed, ambulatory subject supports the diagnosisof Diabetes Mellitus. [facility] [id number] [address] [facility] 07681Dlekh Urea NitrogenAugust 2024 8:21amAugust 2024 9:29am36 mg/dLAbove high normal7-25[facility] [id number] [address] [facility] 99903Hgvqr Urea NitrogenOctober 2024 8:30amOctober 2024 9:49am28 mg/dLAbove high normal7-25[facility] [id number] [address] [facility] 74907IkxthnlnkxDqanfq 2024 8:amAugust 2024 9:29am1.43 mg/dLAbove high normal0.70-1.30[facility] [id number] [address] [facility] 17255DaufsisiyySvkolov 2024 8:30amOctober 2024 9:49am 1.35 mg/dLAbove high normal0.70-1.30[facility] [id number] [address] [facility] 05281Scqmlempi GFR (CKD-EPI)September 12, 2024 8:2024 9:29am49.533 mL/MinLouis [facility] [id number] [address] [place] [address] 37395Pwwuiabis GFR (CKD-EPI)November 26, 2024 8:30amOctober 2024 9:49am53.076 mL/MinLouis [facility] [id number] [address] [facility] 62911Fnzggf LevelAugust 2024 8:21amAugu2024 9:82cg881 mmol/R247-250QxaogtfvpLouis [facility] [id number] [address] [place] [address] 81396Ebvqep LevelOctober 2024 8:30amOctober 2024 9:49am 139 mmol/H801-424MposspculLouis [facility] [id number] [address] [place] [address] 23269Onqkhvahy LevelAugust 2024 8:ugu2024 9:29am 5.0 mmol/L3.5-5.1[facility] [id number] [address] [facility] 76540Orzdnssim LevelOctober 2024 8:30amOctober 2024 9:49am4.5 mmol/L3.5-5.1[facility] [id number] [address] [facility] 83709Doxmkkcn LevelAugust 2024 8:21amAugust 2024 9:41ti414 mmol/A63-386JwfaacauyLouis Stokes [facility] [id number] [address] [facility] 44760Gtrtqdjo LevelOctober 2024 8:30amOctober 2024 9:52li500 mmol/L58-971GfttpynfyLouis Stokes [facility] [id number] [address] [facility] 71171Obpnij Dioxide LevelAugust 2024 8:21amAugust 2024 9:29am25.9 mmol/L21.0-31.0[facility] [id number] [address] [facility] 29017Ccwltx Dioxide LevelOctober 2024 8:30amOctober 2024 9:49am25.9 mmol/L21.0-31.0[facility] [id number] [address] [facility] 33174Tbynh GapAugust 2024 8:21amAugust 2024 9:29am12.1 mEq/L6.0-15.0[facility] [id number] [address] [facility] 06251Muabo GapOctober 2024 8:30amOctober 2024 9:49am10.6 mEq/L6.0-15.0[facility] [id number] [address] [facility] 45179Ynvwwke LevelAugust 2024 8:21amAugust 2024 9:29am9.0 mg/dL8.6-10.3[facility] [id number] [address] [facility] 90727Jfqaxvt LevelOctober 2024 8:30amOctober 2024 9:49am 8.8 mg/dL8.6-10.3[facility] [id number] [address] [facility] 31775Fbllortzux LevelOctober 2024 8:31amOctober 2024 9:47am3.6 mg/dL2.5-4.5[facility] [id number] [address] [facility] 08806Ioxyihecb LevelOctober 2024 8:31amOctober 2024 9:47am1.9 mg/dL1.9-2.7[facility] [id number] [address] [facility] 48998Amqan ProteinAugust 2024 8:21amAugust 2024 9:29am6.5 g/dL6.4-8.9[facility] [id number] [address] [facility] 78628Rucdm ProteinOctober 2024 8:30amOctober 2024 9:49am 6.3 g/dLBelow low normal6.4-8.9[facility] [id number] [address] [facility] 18453GisovvtVcbctg 2024 8:21amAugust 2024 9:29am3.9 g/dL 3.5-5.7[facility] [id number] [address] [facility] 33894XsvmqlsBgolmjr 2024 8:30amOctober 2024 9:49am4.0 g/dL3.5-5.7[facility] [id number] [address] [facility] 86868PvbgiqhlJngkgo 2024 8:21amAugust 2024 9:29am2.6 g/dL [facility] [id number] [address] [facility] 69286RgmtmxxfFvozire 2024 8:30amOctober 2024 9:49am2.3 g/dLLouis Stokes [facility] [id number] [address] [facility] 96021Fnayfyn/Globulin RatioAugust 2024 8:21amAugust 2024 9:29am1.5[facility] [id number] [address] [facility] 12739Aagqmvu/Globulin RatioOctober 2024 8:30amOctober 2024 9:49am1.7[facility] [id number] [address] [place] [address] 62096Tegap BilirubinAugust 2024 8:21amAugu2024 9:29am 0.4 mg/dL0.3-1.0[facility] [id number] [address] [facility] 78822Qxret BilirubinOctober 2024 8:30amOctober 2024 9:49am0.4 mg/dL0.3-1.0[facility] [id number] [address] [place] [address] 15867Bmxihfnzx Amino Transf (AST/SGOT)September 12, 2024 8:21amAugu2024 9:29am16 U/M59-68MlvruzfyvLouis Stokes [facility] [id number] [address] [place] [address] 63968Qqzrmajod Amino Transf (AST/SGOT)November 26, 2024 8:30am November 26, 2024 9:49am18 U/S06-61MagedmbzdLouis [facility] [id number] [address] [place] [address] 39513Waexwyj Aminotransferase (ALT/SGPT)September 12, 2024 8:21am September 12, 2024 9:29am14 U/L7-52[facility] [id number] [address] [place] [address] 93158Fzwpnis Aminotransferase (ALT/SGPT)November 26, 2024 8:30am November 26, 2024 9:49am13 U/L7-52[facility] [id number] [address] [place] [address] 77373Pitjyvzy PhosphataseAugust 2024 8:21amAugu2024 9:03fw521 U/LAbove high hibwlp81-754RlishuyrpLouis [facility] [id number] [address] [place] [address] 57163Gojeakuj PhosphataseOctober 2024 8:30amOctober 2024 9:78uy034 U/LAbove high cxtgpa42-409JgcffyhpoLouis [facility] [id number] [address] [place] [address] 01582Xeih AcidOctober 2024 8:31amOctober 2024 9:47am6.8 mg/dL4.4-7.6[facility] [id number] [address] [facility] 25167Pbxq LevelOctober 2024 8:30amOctober 2024 9:49am47 ug/dLBelow low rxmecc83-621ZzrxmvtwkLouis [facility] [id number] [address] [facility] 21018Xjnto Iron Binding CapacityOctober 2024 8:30amOctober 2024 9:57zl023 ug/hM832-956XytfpwyrkLouis [facility] [id number] [address] [place] [address] 16296Oeri SaturationOct2024 8:30amOctober 2024 9:49am17.2 %Below low nhhpho26-69CcxxomwgoLouis Stokes [facility] [id number] [address] [place] [address] 12491XtutyielemeYegbiqb 2024 8:30amOctober 2024 9:49am 196 mg/dLBelow low aftpbn518-402NfrxudkupLouis Stokes [facility] [id number] [address] [place] [address] 93374ZgkeoxkgPgdyqsf 2024 8:33amOctober 2024 10:08am 145.4 ng/mL23.9-336.2[facility] [id number] [address] [place] [address] 95748Chbkjlqkzti LevelOctober 2024 8:33amOctober 2024 9:01vu267 mg/uK442-634Rewg less than 200 mg/dl low riskChol 201-239 mg/dl borderline riskChol 240 mg/dl and greater high riskLouis Stokes [facility] [id number] [address] [place] [address] 65118ZBD CholesterolOct2024 8:33amOctober 2024 9:48am48 mg/rU10-32CSS CHOL ATP-III CLASSIFICATION Cardiovascular RiskHDL > or equal to 60 mg/dL LOWHDL < 40 mg/dL [facility] [id number] [address] [place] [address] 34393Uacaslniacevx LevelOct2024 8:33amOctober 2024 9:36bz910 mg/dLAbove high normal0-149TRIG ATP III CLASSIFICATIONTRIG less than 150 mg/dL NormalTRIG 150-199 mg/dL Borderline highTRIG 200-500 mg/dL High TRIG greater than 500 mg/dL Very highStandard traceable to the Center for Disease Co nrtrol and Prevention (CDC) test method.[facility] [id number] [address] [facility] 09312IKA Cholesterol, CalculatedOct2024 8:33amOct2024 9:48am74 mg/dL0-100LDL ATP III CLASSIFICATIONLDL less than 100 mg/dL OptimalLDL 100-129 mg/dL Near or above optimalLDL 130-159 mg/dL Borderline highLDL 160-189 mg/dL HighLDL greater than 189 mg/dL Very highLouis [facility] [id number] [address] [facility] 46144SLQM CholesterolOctober 2024 8:33amOct2024 9:48am30 mg/dLLouis Stokes [facility] [id number] [address] [facility] 93036Vggbrffgwru/HDL RatioOct2024 8:33amOct2024 9:48am3.2<5.0[facility] [id number] [address] [facility] 43882Ihwncbg Stimulating Hormone 3rd GenOct2024 8:33am November 26, 2024 10:03am6.97 u[iU]/mLAbove high normal0.45-5.33[facility] [id number] [address] [facility] 2704626-Dphohbc Vitamin D TotalOct2024 8:31amOct2024 10:15am40.1 ng/hA22-453QQTCDGY D STATUS 25(OH)VITAMIN D RANGE (ng/mL) Deficient <20 Insufficient 20 to <59Nrcsgybzet19 to 100Reference: Carmel BURGER,Daniela TINAJERO, Anastasiia CASTANEDA, et al. Evaluation,treatment, and prevention of vitamin D deficiency; an Endocrine Society clinical practice guideline. JCEM. 2010; 96(7):1911-30.[facility] [id number] [address] [facility] 93307Nacquljnlnc Hormone (Intact)November 26, 2024 8:31amOct2024 10:05am68.5 pg/nV66-47SytkmgqvhLouis [facility] [id number] [address] [place] 2700070Pharmacy Creatinine Clearance (ChemAugust 2024 8:21am September 12, 2024 9:29am55.22[facility] [id number] [address] [facility] 08250Mcdugeqw Creatinine Clearance (ChemOctober 2024 8:30am November 26, 2024 9:49amN/[facility] [id number] [address] [facility] 54519Rjqbuyoeqk W6hCnuitwu2024 8:33amOct2024 2:12pm5.8 %Above high normal4.3-5.6Increased risk for diabetes: 5.7 - 6.4diabetes: >6.4glycemic control for adults with diabetes: <7.0[facility] [id number] [address] [facility] 09333Ixexjzmag Average GlucoseOct2024 8:33amOct2024 2:16wc678 mg/dLLouis Stokes [facility] [id number] [address] [place] [address] 85717Cdeio Random CreatinineOct2024 8:33amOct2024 9:38hv645.00 mg/dLNo reference range establishedLouis [facility] [id number] [address] [facility] 16806Fbbqy Random Total ProteinOct2024 8:33amOctober 2024 9:31am34 mg/dLAbove high normal0-9[facility] [id number] [address] [place] [address] 58791Qosjc Protein/Creatinine RatioOct2024 8:33amOct2024 9:06fx243 mg/g{Cre}Above high normal0-200[facility] [id number] [address] [facility] 71666Ldwaf ImmunofixationAugust 2024 8:21amAugust 2024 11:08amComment:.Presence of monoclonal protein is unclear at this time. Suggestrepeat in 3 to 6 months if clinically indicated.[facility] Immunoglobulin GA2024 8:2024 11:43ae206 mg/dL 603-1613[facility] AA2024 8:2024 11:08am72 mg/mC38-160YktXdqd MA2024 8:2024 11:08am81 mg/jL64-162Siadbwyeu at: - [facility] [address] [id number] Director: Modesto Avila PhD, Phone: [phone] Total ProteinAugust 2024 8:2024 4:08pm6.4 g/dL6.0-8.5[facility] (Send Out)September 12, 2024 8:2024 4:08pm3.3 g/dL2.9-4.4[facility] 7th, 2025 8:2024 4:08pm0.4 g/dL0.0-0.4[facility] 7th, 2025 8:2024 4:08pm1.2 g/dLAbove high normal0.4-1.0[facility] Globulin2024 8:2024 4:08pm0.9 g/dL0.7-1.3[facility] Globulin2024 8:2024 4:08pm0.7 g/dL0.4-1.8[facility] Electrophoresis M-SpikeAugust 2024 8:2024 4:08pm0.2 g/dLAbove high normalNot ObservedLabCorp (PEP)September 12, 2024 8:2024 4:08pm3.1 g/dL2.2-3.9[facility] /Globulin (PEP)September 12, 2024 8:21am September 13, 2024 4:08pm1.10.7-1.7[facility] Electrophoresis NoteAugust 2024 8:2024 4:08pmComment.Protein electrophoresis scan will follow via computer,mail, or slate trimmer delivery.Performed at: [facility] [address] [id number] Director: Modesto Avila PhD, Phone: [phone] Peter Light Chains, QuantAugust 2024 8:2024 1:36pm25.8 mg/LAbove high normal3.3-19.4[facility] Lambda Light Chains, QuantAugust 2024 8:2024 1:36pm15.4 mg/L 5.7-26.3[facility] Peter/Lambda Light Chain RatioAugus2024 8:2024 1:36pm1.68Above high normal0.26-1.65Performed at: [facility] [address] [id number] Director: Modesto Avila PhD, Phone: [phone] Microbiology Results Procedure Source Result Collection Date/Time Result Date/Time Result Comment Performing Site Occult Blood (FIT) Stool November 25, 2024 6:00pmOctober 2024 10:[facility]am[facility] [id number] [address] [place] [address] Diagnostic Imaging Reports Author [facility], 2024 7:53pmReport Dictated Date/TimeDictated ByStatusRadiology ReportDecember 2023 7:53pm [facility] [place] [address] [place] [address] XRay Report Signed Patient: Lucian Hines MR#: [id number] : 1945 Acct:[id number] Age/Sex: 78 / M ADM Date: 4 Loc: XT [facility]: Altaf Das MD Copies to: Altaf Das MD~ Ordering Provider: Altaf Das MD Date of Service: 02/02/24 XR/XR bone survey: 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 Right hip arthroplasty. Cervical spine fixation hardware. No acute chest findings. Moderate stool. Atherosclerosis. Bilateral knee arthroplasties. Moderate bilateral knee degeneration greater on the left. XR/XR bone survey IMPRESSION: No worrisome lytic lesion. Degenerative change. Impression dictated by: Michael Ferrer M.D.02/02/2024 8:01 PM Dictation Location: [place] [address] Transcribed By: [facility] 02/02/242000 Dictated By: Michael Ferrer DO 02/02/241952 Signed By: <Electronically signed by Michael Ferrer DO in OV> 02/02/242000 Vital Signs Vital Reading Result Reference Range Collection Date/Time Weight 111.13 kg September 19, 2024 9:31amHeart Rate56 /yax14-135Xafnvd 2024 9:31am Respiratory rate16 /asu88-07Zuuold 2024 9:31amOxygen saturation by Pulse bgglpuki23 %95-100August 2024 9:31amBP Ajgdlthe846 mm[Hg]100-140August 2024 9:31amBP Ihiwefmkz54 mm[Hg]60-100August 2024 9:08wiVzwqly84 [in_i]March 14, 2024 1:29goVqilav514.13 kgAugust 2024 9:68njYzzxou93 [in_i]October 17, 2024 8:71spSairaf964.33 kgSeptember 2024 8:13amBody Epgwcqysulm42.8 [degF]97.6-99.0September 2024 8:13amHeart Rate53 /min 60-100September 2024 8:13amOxygen saturation by Pulse rrhhmjon98 %95-100 October 17, 2024 8:13amBP Vbbqwyir356 mm[Hg]100-140September 2024 8:13amBP Kwdouxfas61 mm[Hg]60-100September 2024 8:13amBMI (Body Mass Index)32.1 kg/y4Zofdjcjgs2024 8:42vpEiosos15 [in_i]October 21, 2024 2:61hpZrwtaj889.00 kgSeptember 2024 2:52pmBody Vmhgiztvhna42.7 [degF] 97.6-99.0September 2024 2:52pmHeart Rate60 /ilt38-843Rpiyuqpdo 2024 2:52pmRespiratory rate20 /qgz29-07Fvhfcaxww 2024 2:52pmOxygen saturation by Pulse evzdhjro692 %95-100September 2024 2:52pmBP Elracqds108 mm[Hg] 100-140September 2024 2:52pmBP Umpkvxmtq28 mm[Hg]60-100September 2024 2:77mnNdkypi05 [in_i]November 07, 2024 11:27pnCypyqh370.58 kgOctober 2024 11:56amHeart Rate63 /wvz63-289Dwdkdfc 2024 11:56amRespiratory rate18 /jiy29-72Nrkqnel 2024 11:56amOxygen saturation by Pulse faoqlmvw980 %95-100 November 07, 2024 11:56amBP Suzrauaa087 mm[Hg]100-140October 2024 11:56amBP Cmgiovjhd12 mm[Hg]60-100October 2024 11:56amBMI (Body Mass Index)32.4 kg/q0Dipdbwe 2024 11:48ckJklwqr07 [in_i]December 11, 2024 9:13amWeight 113.39 kgDecember 11, 2024 9:13amBody Vgthgwbqeui46.1 [degF]97.6-99.0December 11, 2024 9:13amBP Totzehuh510 mm[Hg]100-140December 11, 2024 9:13amBP Mitfkdjuz34 mm[Hg]60-100December 11, 2024 9:13amBMI (Body Mass Index)33.0 kg/m2 December 11, 2024 9:13am Advance Directives Advance Directive Response Recorded Date/ Time Advance Directives No November 09, 2016 10:15am Insurance Providers Guarantor Lucian Hines Address [address] [place] [address] 20 [address] [facility] [id number] Info.Home Phone: Coverage Status Update:2024 Payer Group Member ID Coverage Type Subscriber Relationship to Subscriber Effective Date Expiration Date Medicare [id number] A Donny Id: [id number] [address] [facility] [address] [facility] [address] Home Phone: Email: [email or web address] MCR Adv PFFS Id: [id number] Edgardo Donny Id: [id number] [address] [facility] [address] [facility] [address] Home Phone: Email: [email or web address] Encounters Encounter Location(s) Arrival/Admit Date Discharge/Departure Date Discharge/Departure Disposition Provider(s) Departed Physician/ Provider [facility] September 19, 2024 10:28am September 19, 2024 10:57am Discharged to home care or self care (routine discharge) Altaf Das MD Registered Recurring -[facility] Acute September 19, 2024 10:29am FLORA Pollockeparted Physician/Provider Office Visit-[facility] Urgent Care CleSept2024 9:13amSept2024 9:41amDischarged to home care or self care (routine discharge)Lashawn Pineda , APRNDeparted Emergency-Emergency RoomSeptember 2024 3:37pmSeptember 2024 6:31pm Discharged to home care or self care (routine discharge)Non-patient / Non-visit- [facility] Family [facility] 2024 11:38amMAIK Pathak Departed Physician/Provider Office Visit-[facility] CardiologyOctober 2024 12:49pmOctober 2024 1:43pmDischarged to home care or self care (routine discharge)Radha Ames , FLORAeparted Clinical-EKG CardiologyOctober 2024 12:53pmOctober 2024 12:54pmDischarged to home care or self care (routine discharge)Radha Ames , FLORAeparted Clinical-Lab [facility]October 2024 6:00pmOctober 2024 6:01pmDischarged to home care or self care (routine discharge)Matt Black , [facility] 2024 8:49amOctober 2024 8:50amDischarged to home care or self care (routine discharge)Mireya Pichardo , MDDeparted Physician/Provider Office Visit-[facility] Family [facility] 2024 9:14amNovember 2024 10:12am Discharged to home care or self care (routine discharge)Matt Black , DO Recent Diagnosis Onset Date Admit Date Anemia of renal disease Unknown September 062024 10:28am Bence Long protein Unknown September 19, 2024 10:28am CKD (chronic kidney disease) stage 3, GFR 30-59 ml/min Unknown September 19, 2024 10:28am Proteinuria Unknown September 19 10:28am Skin tear Unknown October 17, 2024 9:13am CKD (chronic kidney disease) stage 3, GFR 30-59 ml/min Unknown November 07, 2024 12:49pm Hyperlipidemia Unknown November 07 12:49pm Hypertension Unknown November 07 12:49pm Irregular heart beat Unknown November 12:49pm Persistent atrial fibrillation Unknown O ctober 2024 12:49pm Abnormal thyroid stimulating hormone (TSH) level Unknown December 11, 2024 9:14am Anemia Unknown December 11 9:14am Atrial fibrillation Unknown December 9:14am Elevated alkaline phosphatase level Unknown December 11, 2024 9:14am Elevated PSA Unknown December 11 9:14am Hyperglycemia Unknown December 11 9:14am Hyperlipidemia Unknown December 11 9:14am Hypertension Unknown December 11 9:14am Lumbar pain Unknown December 11 9:14am Other abnormal blood chemistry Unknown N ov2024 9:14am Positive fecal occult blood test Unknown December 11, 2024 9:14am Weight gain Unknown December 11 9:14am Assessments Diagnosis Onset Date Resolution Status Admit Date Anemia of renal disease acuteAugust 2024 10:28amBence Long proteinacuteAugust 2024 10:28am CKD (chronic kidney disease) stage 3, GFR 30-59 ml/minacuteAugust 2024 10:28amProteinuriaacuteAugust 2024 10:28amSkin tearacuteSeptember 2024 9:13amCKD (chronic kidney disease) stage 3, GFR 30-59 ml/minacuteOctober 2024 12:49pmHyperlipidemiaacuteOctober 2024 12:49pmHypertensionacute November 07, 2024 12:49pmIrregular heart beatacuteOctober 2024 12:49pm Persistent atrial fibrillationacuteOctober 2024 12:49pmAbnormal thyroid stimulating hormone (TSH) levelacuteNov2024 9:14amAnemiaacuteNovember 2024 9:14amAtrial fibrillationacuteNov2024 9:14amElevated alkaline phosphatase levelacuteNov2024 9:14amElevated PSAacute December 11, 2024 9:14amHyperglycemiaacuteNovember 2024 9:14am HyperlipidemiaacuteNov2024 9:14amHypertensionacuteNov2024 9:14amLumbar painacuteNovember 2024 9:14amOther abnormal blood chemistry acuteNov2024 9:14amPositive fecal occult blood testacuteNov2024 9:14amWeight gainacuteNov2024 9:14am Plan of Treatment Author Altaf Pippa [facility] HospitalIndioming 2024 9:54amMark is a 78-year-old nice gentleman was referred by Dr. 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 see HPI for complete details. 03/14/24: Patient is here for results of the BMBx, Results of the skeletal bone survey and labs and further planning of his care and treatment plan for Bence Long Proteinuria. Skeletal bone survey done on 02/02/2024 revealed no worrisome lytic bone lesions. It did reveal degenerative changes only. His labs on 02/27/2024 revealed minimal but stable anemia with hemoglobin 12.1. Normal WBC and platelet and unremarkable WBC differential. PT PTT INR were normal. Patient underwent a bone marrow biopsy and aspirate on 02/27/2024 and the results revealed: Normocellular bone marrow for age in the range of 20 to 40% with trilineage hematopoiesis. No overt marrow plasmacytosis is detected (less than 5% of polytypic plasma cells seen). No amyloid detected. No significant reticulin fibrosis. Storage iron present. Relatively increased eosinophils 13% and decreased neutrophils 19% but relatively increased monocytes 26%. Cytogenetics revealed normal male karyotype 46 XY. In summary: Bone marrow biopsy and aspirate the flow cytometry immunophenotypic findings revealed nonspecific findings. These are nondiagnostic. And lymphoproliferative or myeloproliferative or plasma cell neoplasm were not detected. The Congo red was negative therefore no signs of amyloidosis. There is no evidence of plasma cell neoplasia or or amyloidosis on the bone marrow biopsy. His proteinuria could be related to his chronic kidney disease especially in light of like the plasma cells seen in the bone marrow are polytypic and not mono clonal. -He mentioned to me that a prior to last visit in about 3 weeks prior he had intravesicular BCG treatment weekly for 3 weeks for maintenance treatment or preventative treatment for his history of a bladder cancer he had about couple years ago. This could explain the inflammatory cells and polytypic plasma cells seen in the bone marrow. 09/19/24: He is here for 6 months FU for history of Bence Long proteinuria. He denied any B symptoms or enlarged LAP. labs on 09/12/24 revealed: Hemoglobin stable 11.0 with normal WBC and normal MCV RDW slightly elevated 16 platelet is normal WBC differential is unremarkable except for absolute monos 1.0 slightly borderline elevated and absolute lymphocytes 0.6 slightly lower than normal. Renal function is stable 1.43 creatinine BUN is 36 stable. Calcium is normal alk phos is 129 stable rest of the LFTs are normal total protein is normal at 6.4 M spike is stable lites 0.2 IgG IgA and IgM are within normal range. Serum immunofixation revealed presence of monoclonal protein is unclear at this point suggested repeating it in 3 to 6 months. And free kappa light chain is minimally elevated 25.8 and very stable with normal lambda at 15 and K/L ratio is 1.68 slightly elevated but stable. Plan: Follow observation with repeat CBC, CMP myeloma labs in 6 months and see him then. Also obtain 24 hour urine UPEP and urine light chains then. Author Radha Ames [facility] HospitalAutredOctober 2024 9:21amAssessment: Persistent Atrial fibrillation [id number] =3 HTN- well controlled. CKD 3 GERD HLD ?? Plan: - s/p successful DCCV 07/31/23. EKG today reveals normal sinus bradycardia with first-degree AV block, rate 49 bpm. - Pt has been bradycardic at home. Will decrease Toprol to 12.5mg daily. Continue Amiodarone 200mg daily. - Continue Xarelto 20mg daily for stroke prophylaxis - BP at goal. Continue Amlodipine 10mg daily & Lisinopril 5mg daily - Continue Crestor 10mg daily. - RTC in 6 months or sooner if needed. Author Valencia Luna [facility] HospitalAuthoredNovflagstaff [facility] center 2024 9:57amBlood pressure is controlled. Discussed cholesterol results with patient today. Total is 152. HDL is 48. LDL is 74. Triglycerides are 152. VLDL is 30. I did recommend that he watch his intake of carbs and sugars. Stay active. He admits he has probably been eating more of these foods than normal. He probably ate a lot of sweet corn but not as much as he normally does. His marine pipe welder cut his Metoprolol dose in half. He voices that it is difficult to cut this tiny tablet in half but he does do this. He did not notice if he felt less fatigued once his dose was cut in half. He thinks his pulse was better when he cut his dose in half. He did notice that he went into a-fib last week but he had been drinking caffeine to stay awake on his drive home from [place]. I did advise him that he should avoid caffeine. He voices that normally he can drink one cup of coffee in the morning. He continues to follow with Dr. Morales. He has an appointment with Dr. Pichardo next week. His BUN is 28. Creatinine is 1.35. EGFR is 53.076. His alk phos level is 122. Will continue to monitor. His HGB is 11.6. Iron is 47. Ferritin is 145.4. % saturation is 17.2. Again, he is going to have a colonoscopy done in January (2024). His storage of iron is back to normal. His iron level is slightly low on the saturation. Discussed blood sugar results with him today. Glucose is 93. HgA1C is 5.8 down from 5.9. He is to continue to monitor his intake of carbs and sugars. Stay active. His FOBT test was positive so he has a colonoscopy scheduled with Dr. Tyson on 01/15/25. He got paperwork telling him how to take his medication prior to the procedure. They are aware of him being on the blood thinner. He has been having back pain, mostly in the low back. He would like to do acupuncture through Dr. Lui but needs to have an x-ray of his lumbar spine. I will provide him with an order to have an x-ray done. His TSH is abnormal at 6.97, it appears to be hypothyroid. There are many reasons this can be abnormal. Due to his a-fib we should check thyroid studies further. A lab order will be provided and he is to call for results. He has felt more fatigued than normal. He has an appointment to see Dr. Walton on 01/06/25. Author Lashawn Pineda [facility] HospitalAuthoredSeptember 2024 8:47amWound cleansed with mixture of hydrogen peroxide and sterile water. Wound covered with xeroform dressing, nonstick gauze and coban. Educated to keep dressing on x24 hours; then may remove, and cleanse area with warm soapy water and redress. Mupirocin ointment sent to pharmacy for topical use. Currently taking 100 mg minocycline daily; patient to increase this to BID x 5 days. Patient and voice understanding. Follow up with PCP if symptoms do not improve over the next 2 days. Future Tests Future scheduled test information is unavailable Pending Tests Test Name Ordered Date Scheduled Date Comprehensive Metabolic Panel September 19, 2024 9:48am 6 Months Comprehensive Metabolic Panel December 11, 2024 9:30am 6 Months XR lumbar spine 2-3V* December 11, 2024 9:43am Future Visits Future appointment information is unavailable Future Procedures Procedure Name Ordered Date Scheduled Date Complete Blood Count Auto Diff September 19, 2024 9:48am 6 Months Fr Peter/Lambda LTC Urine September 19, 2024 9:48 am 6 Months Immunofixation,Serum September 19, 2024 9:48am 6 Months Immunoglobulins A/G/M, Qn, Ser September 19, 2024 9:48am 6 Months Free K+L LT Chains, Qn, S September 19, 2024 9:48 am 6 Months Protein Electrophoresis, Serum September 19, 2024 9:48am 6 Months Protein Electro, 24Hr Urine September 19, 2024 9: 48am 6 Months A1C with Estimated Average Glu December 11 9:30am 6 Months Complete Blood Count Auto Diff December 11 9:30am 6 Months Iron and TIBC Profile December 11, 2024 9:30am 6 Months Ferritin December 11, 2024 9:30am 6 [facility] Lipid Panel December 11, 2024 9:30am 6 [facility] Triiodothyronine (T3) Free December 11, 2024 9: 48am Free T4 (Free Thyroxine)December 11, 2024 9:48amThyroid Antibodies TPO+Tg Ab December 11, 2024 9:48amThyroid Stimulating HormoneNov2024 9:48am Future Medications Future medication information is unavailable Patient Instructions Instruction Admit Date General Trauma (DC) October 21, 2024 3:37pm Low back pain in adults December 11 9:14am
--- OUTSIDE RECORDS SUMMARY | 2024-12-11 10:25 | XMS_ITS | Clinical Summary ---
Author Organization [facility] Address [address] [place], [place] [address] Care Team Providers Care Food And Beverage Assistant Manager Name Role Phone Matt Black DO Primary Care Provider [phone] Montserrat Colmenares Unavailable [phone] Kevin Steven PA-C Unavailable [phone] Allergies Active AllergyReactionsCriticalityNoted DateCommentsNafcillinOther: See Comments 06/16/2015 affected kidneys per pt and family Medications MedicationSigDispense QuantityRefillsLast FilledStart DateEnd DateStatus therapeutic multivitamin (THERA VITAMIN) tablet Take 1 tablet by mouth once daily. 90 tablet Active ascorbic acid (VITAMIN C) 500 mg tablet Take 1 tablet by mouth twice daily with meals. 90 tablet Active amLODIPine (NORVASC) 5 mg tablet Take 1 tablet by mouth once daily.Active rosuvastatin (CRESTOR) 5 mg tablet Take 1 tablet by mouth daily at bedtime.Active esomeprazole (NEXIUM) 40 mg capsule Take 40 mg by mouth once daily.Active COQ10, UBIQUINOL, ORAL Take 200 mg by mouth once daily.Active acetaminophen (TYLENOL) 500 mg tablet Take 2 tablets by mouth every 8 hours as needed. 60 tablet Active lisinopril (ZESTRIL, PRINIVIL) 5 mg tablet TK 1 T PO QD01/16/2019Active ferrous sulfate (IRON ORAL) Take 65 mg by mouth three times a week.Active docosahexaenoic acid/epa (FISH OIL ORAL) Take 1,000 mg by mouth once daily.Active tiZANidine (ZANAFLEX) 2 mg tablet Take 1 tablet by mouth twice daily as needed. 60 tablet Active gabapentin (NEURONTIN) 600 mg tablet Take 1 tablet by mouth daily at bedtime for 90 days. 30 tablet 3Active minocycline (MINOCIN, DYNACIN) 100 mg capsule Indications:S/P revision of total hipTake 1 capsule by mouth once daily. 90 capsule 5Active Active Problems Patient Care Coordination No te Formatting of this note migh t be different from the original. Consult to home care for home Physical therapy Surgery revision right thr 06/16/2015 Consult to home care for home Physical therapy Surgery 03/17/2015 Removal infected right thr Dr. Rosenbaum ProblemNoted DateDiagnosed DateObesity, Class I, BMI 30-34.9003/21/2023Lumbar ybdrlvtdirv62/13/2020Foot drop, right09/28/2015Hip joint replacement status 06/16/2015Status post right hip bmeezyvcijq35/15/2016Mechanical complication of hip shlayxmcsp43/15/2016Infected prosthetic hip03/16/2015 Immunizations ImmunizationAdministration DatesNext Dueinfluenza (HD-IIV3) vaccine, age 65+ yr, high dose, trivalent, PF (FLUZONE HIGH-DOSE)03/20/2015pneumococcal polysaccharide (PPV23) vaccine, 23 valent (PNEUMOVAX 23)03/20/2015 Family History Medical HistoryRelationCommentslung edemaFatherfather alive on home 02healthy MotherhealthyRelationStatusCommentsFatherMother Social History Tobacco UseTypesPacks/DayYears UsedDateSmoking Tobacco: FormerCigarettes0.545 03/16/1960 - 03/16/2005Smokeless Tobacco: NeverAlcohol UseStandard Drinks/Week CommentsYes0 (1 standard drink = 0.6 oz pure alcohol)occasionalPHQ-2AnswerDate RecordedPHQ-2 abtbh680Area Deprivation IndexAnswerDate RecordedNational Score (1-100), lower number is lower pqae648312/09/2022State Score (1-10), lower number is lower fqld1183Data from: https://www.neighborhoodatlas.medicine.[facility]/. Last address used for snyuhaeoiiz[address] Sex and Gender InformationValueDate RecordedSex Assigned at YyqnaAxcg82/14/2020 5:03 AM EDTLegal KabOxof52/09/2015 9:43 AM ESTGender PnvfzotmVzjb78/18/2020 6:47 PM EDTSexual OrientationStraight 06/20/2019 5:03 AM EDT Last Filed Vital Signs Vital SignReadingTime TakenCommentsBlood Drqxvxzh246/5411/07/2022 12:53 PM EDT Xoqdn338711/07/2022 12:53 PM NIEUtzlysmgjyd86.5 ??C (97.7 ??F)11/07/2022 12:40 PM EDTRespiratory Lszg4904 12:53 PM EDTOxygen Kvyxgzcrry523%11/07/2022 12:53 PM EDTInhaled Oxygen Concentration--Wuryvx939.7 kg (255 lb)09/14/2022 11:59 AM EGBJmaght341.4 cm (6' 1 )11/29/2019 12:12 PM EDTBody Mass Index33.64 11/29/2019 12:12 PM EDT Plan of Treatment Health MaintenanceDue DateLast DoneCommentsAnxiety Eykizwywf64/05/1963Depression Pemyhattt54/05/1963Medicare Annual Wellness Visit08/06/2009Diabetes Screening , 06/08/2015, 04/27/2015, Additional history existsRSV Vaccine (1 - 1-dose 75+ series)08/11/2019Advance Directive Ablqnodnjp65/01/2025 Covid-19 Vaccine ( - 2024- season)2024Influenza Vaccine (#1)2024 11/17/2022, 12/29/2021, 11/21/2020, Additional history existsDTaP,Tdap,Td Vaccine (4 - Td or Tdap), 04/05/2021, 09/26/2012Pneumococcal Vaccine: 50+Qpugpuewx32/05/2020, 11/07/2019, 11/23/2015, Additional history existsShingrix CttiuzdDceaohpro75/04/2024, 11/17/2022 Medical Devices ImplantedTypeAreaManufacturerDevice IdentifierShelf Expiration DateModel / Serial / LotCement Simplex P Bone Radiopaque Full Dose Sterile - [id number] Implanted:Qty: 2 on 03/17/2015 at [facility] TSNKXJIXZSK18/31/[id number] / / [id number] Simplex P Bone Radiopaque Full Dose Sterile - [id number] Implanted:Qty: 1 on 03/17/[address] [facility] UDRVHCDUSWO25/30/[id number] / / [id number] Simplex P Bone Radiopaque Full Dose Sterile - [id number] Implanted:Qty: 1 on 03/17/[address] [facility] LUJTHFPFILH86/09/[id number] / / [id number]-Tm-B-Xitv Implant - [id number] Implanted:Qty: 1 [facility]17/[facility]ImplantBIOMED SYSTEMS INC 10/15/[id number] / / [id number]:Stage 1 select hip spacer, stem mold w reinforcement. 15mm x 072bhUwr-Hs-B-Kind Implant - [id number] Implanted:Qty: 1 on 03/17/2015 [facility] HospitalImplantBIOMET ORTHO02/19/2025 [id number] / / [id number]:Modular head component, xxnqrfgoOeg-Aq-W-Kind Implant - [id number] Implanted:Qty: 1 on 06/16/2015 [facility] HospitalImplantRight: Bone - Hip NATHAN NWUWPG3412/17/[id number] / / [id number]:CHECKING FOR PRICINGStem Temple 25mm Straight Cone Conley 155mm Femoral Modular Hip - [id number] Implanted:Qty: 1 on 06/16/2015 [facility] HospitalJoint - HipRight: Bone - Hip [facility] OOTDBRJRHUZ33/10/[id number] / / [id number] Mdm 48mm G Cocr Acetabular 28mm Femoral Head Hip - [id number] Implanted:Qty: 1 on 06/16/2015 at [facility]: Bone - Hip [facility] WLTDHNCYQSF12/10/[id number] / / [id number] Adm Mobile Bearing Hip Temple 54mm 28mm 0d X3 9.9mm Acetabular - [id number] Implanted:Qty: 1 on 06/16/2015 at [facility]: Bone - Hip [facility] GZLDWMHKNSG23/10/[id number] / / [id number] Temple 27mm +20mm Cone Modular Revision Hip - [id number] Implanted:Qty: 1 on 06/16/2015 at [facility]: Bone - Hip [facility] SXJOBBPWMOK28/10/[id number] / / [id number]-[id number]-Kvrt Implant - [id number] Implanted:Qty: 1 on 03/17/2015 at [facility] 01/26/[id number] / / [id number]:Revision shell liner 0 degree 40mm I.D.Head V40 28mm -4mm Offset Taper Biolox Delta Femoral Hip - [id number] Implanted:Qty: 1 on 06/16/2015 at [facility] ZXRYOXRNUXY38/10/[id number] / / [id number] Temple Osteolock 6.5mm Hexagon Titanium 30mm Bone Wedge Hip - [id number] Implanted:Qty: 1 [facility] EPEDWBGYASB08/10/[id number] / / [id number] Temple Osteolock 6.5mm Hexagon Titanium 28mm Bone Wedge Hip - [id number] Implanted:Qty: 1 on 06/16/2015 [facility]wRight[facility] KGWNZPESLWV54/10/[id number] / / [id number] Temple Osteolock 6.5mm Hexagon Titanium 35mm Bone Wedge Hip - [id number] Implanted:Qty: 1 on 06/16/2015 [facility]wRight: Bone - HipSTRY- [facility] QCRRBUEEKYG39/10/[id number] / / [id number] Temple Osteolock 6.5mm Hexagon Titanium 40mm Bone Wedge Hip - [id number] Implanted:Qty: 1 on 06/16/2015 [facility]wRight: Bone - HipSTRY- [facility] BKVYXTTXJCF99/10/[id number] / / [id number] Temple Osteolock 6.5mm Hexagon Titanium 45mm Bone Wedge Hip - [id number] Implanted:Qty: 1 on 06/16/2015 [facility]crewRight: Bone - HipSTRY- [facility] VSMPYJVAGJA48/10/[id number] / / [id number] Osteolock 6.5mm Titanium 12mm Acetabular Hexagon Hip Cancellous - [id number] Implanted:Qty: 1 on 06/16/2015 [facility]wRight: [facility]STRYROSL[facility] IVSFZTALNIF34/10/[id number] / / [id number] Procedures Procedure NamePriorityDate/TimeAssociated DiagnosisCommentsBASIC METABOLIC PANEL Mkqlmws7906/16/2015 8:50 PM EDT from Last 3 Months or Most Recently Relevant to Health Maintenance Results * (ABNORMAL) BASIC METABOLIC PNL (06/16/2015 8:50 PM EDT)ComponentValueRef Range Test MethodAnalysis TimePerformed AtPathologist OboymrvcsJcndxve948(H)65 - 100 mg/dL06/17/2015 12:16 AM [facility] BTTCGATVCTHIQ3266 - 25 mg/dL 06/17/2015 12:16 AM [facility] LABORATORYCreatinine1.120.70 - 1.40 mg/dL06/17/2015 12:16 AM [facility] KAODGEXNGHDkgtjc395355 - 146 mmol/L06/17/2015 12:16 AM [facility] LABORATORYPotassium 5.03.5 - 5.0 mmol/L06/17/2015 12:16 AM [facility] LABOR[facility]ORY Puzuemzc43492 - 110 mmol/L06/17/2015 12:16 AM [facility] YNKTONLQFOMR71236 - 32 mmol/L06/17/2015 12:16 AM [facility] LABORATORYAnion Yok132 - 15 mmol/L06/17/2015 12:16 AM [facility] LABORATORYCalcium8.2(L)8.5 - 10.5 mg/dL06/17/2015 12:16 AM [facility] LABORATORYeGFR->6005 12:16 AM [facility] LABORATORYeGFR-All Other Races>60.06/17/2015 12:16 AM [facility] LABORATORYComment: eGFR (Estimated GFR) Units of measure: mL/min/1.73 meters squared eGFR is derived from the reexpressed MDRD Study equation using the following parameters: serum creatinine, age, gender and race. The creatinine assay has been calibrated to be traceable to IDMS. An eGFR <60 mL/min/1.73m2 for >3 months is consistent with chronic kidney disease. Refer to KDOQI guidelines for clinical interpretation. In patients with unstable renal function, e.g. those with acute kidney injury, the eGFR may not accurately reflect actual GFR. Specimen (Source)Anatomical Location / LateralityCollection Method / Volume Collection TimeReceived TimeBlood specimen (specimen)BLOOD SPECIMEN / Unknown 06/16/2015 8:50 PM EDT06/16/2015 8:51 PM EDT Narrative Authorizing ProviderResult TypeResult StatusVimariana Rosenbaum MDLABORATORYFinal ResultPerforming OrganizationAddressCity/State/ZIP CodePhone Number [facility] [address] [place] [address] from Last 3 Months or Most Recently Relevant to Health Maintenance Insurance [address] [place] [address] Care Teams Team MemberRelationshipSpecialtyStart DateEnd Date Matt Black, [address] [place] [address] PCP - GeneralFamily Flonnvcg45/9/15 Montserrat Colmenares RNFA [address] [place], [place] [id number] Specialty Care CoordinatorOrthopedics03/13/15 Kevin Steven PA-C [address] [place] [address] Physician AssistantOrthopedics03/13/15
--- OUTSIDE RECORDS SUMMARY | 2024-12-11 10:25 | XMS_ITS | Clinical Summary ---
Author Organization [facility] Address [address] [place] [address] Care Team Providers Care Custody Officer Name Role Phone Matt Black MD Primary Care Provider [phone] Allergies Active AllergyReactionsCriticalityNoted MyquDofgzukiAdtvjbuzjKmypdjy30/10/2016 affected kidneys per pt and family Medications MedicationSigDispense QuantityRefillsLast FilledStart DateEnd DateStatus amiodarone (Pacerone) 200 MG tablet Daily09/27/2023ctive amLODIPine (Norvasc) 10 MG tablet Take 10 mg by mouth DailyActive Eliquis 5 MG tablet Take 5 mg by mouth in the morning and 5 mg before bedtime.06/30/2023ctive esomeprazole (NexIUM) [address] capsule Take 40 mg by mouth in the morning.Active lisinopril 5 MG tablet Take 5 mg by mouth Daily06/27/2023ctive metoprolol succinate XL (Toprol-XL) 50 MG 24 hr tablet Take 50 mg by mouth in the morning and 50 mg before bedtime.06/30/2023ctive rosuvastatin (Crestor) 10 MG tablet Take 10 mg by mouth DailyActive Active Problems ProblemNoted DateDiagnosed DateA-fib12/20/20238407Vzchvb76/13/2024Elevated alkaline phosphatase level12/20/2023Elevated brain natriuretic peptide (BNP) level 12/20/2023Elevated PSA12/20/20231697Htbzaie80/13/5325Gzaaxcsfcj76/13/2024 Gnmfgmaukpzsr45/13/4466Falrfqpdiigtqs39/13/9346Zkvitmghsrdi72/13/2024 Amdrxeasungnuy33/13/2024Irregular heart beat12/20/2023Stage 3 chronic kidney tjqmzsq3112/20/2023trial fibrillation with RVR102/18/2023Obesity, Class I, BMI 30-34.9003/21/2023Lumbar mftuuzoewap98/13/2020Foot drop, right09/28/2015GERD (gastroesophageal reflux disease)08/14/2014 Encounters DateTypeDepartmentCare WbjvXmspdtqbuau50/27/2025 10:15 AM EDTProcedure Visit [facility] [address] [place] [address] Fay Juares DPM Onychomycosis (Primary Dx); Corns and callosities; Circulating anticoagulant disorder ([facility]); Pain in both feet10/02/2024[facility] [address] [place] [address] Fay Juares DPM 10/02/2024Travelfrom Last 3 Months Social History Tobacco UseTypesPacks/DayYears UsedDateSmoking Tobacco: NeverSmokeless Tobacco: Never Tobacco Cessation:Counseling Given: Not Answered Alcohol UseStandard Drinks/WeekCommentsNever0 (1 standard drink = 0.6 oz pure alcohol)caffeine intake: 1-2 cups per daySex and Gender InformationValueDate RecordedSex Assigned at BirthNot on fileLegal MbbXuji1304/20/2022 7:00 PM EDT Gender IdentityNot on fileSexual OrientationNot on file Last Filed Vital Signs Vital SignReadingTime TakenCommentsBlood Prgqklou944/78007/25/2017 12:00 PM EDT Pulse--Temperature--Respiratory Rate--Oxygen Saturation--Inhaled Oxygen Concentration--Xgzgnn585 kg (240 lb)07/25/2017 12:00 PM UDFAyoxmv339.4 cm (6' 1 )07/25/2017 12:00 PM EDTBody Mass Index31.66007/25/2017 12:00 PM EDT Plan of Treatment DateTypeDepartmentCare Team (Latest Contact Info)Jmonhiwyrml57/01/2025 10:00 AM ESTProcedure Visit [facility] [address] [place] [address] Fay Juares, DPM [address] [place] [address] Insurance Care Teams Team MemberRelationshipSpecialtyStart DateEnd Matt Black MD [address] [place] [id number] PCP - GeneralFamily Medicine08/22/24
--- OUTSIDE RECORDS SUMMARY | 2024-12-11 10:25 | XMS_ITS | Clinical Summary ---
Author Organization [employer] [facility] tem Address [id number] [address] [place] [address] Care Team Providers Care Sports Centre Manager Name Role Phone Matt Black DO Primary Care Provider [phone] Social History Tobacco UseTypesPacks/DayYears UsedDateSmoking Tobacco: Never AssessedChildcare AnswerDate EqyeshgxImzqfywknFqvzjlu55/12/2019EmploymentAnswerDate Recorded VuyfhsmptiAnnynln46/12/2019Purpose - LifeAnswerDate RecordedPurpose and direction in broeNrusmto25/11/2021ex and Gender InformationValueDate Recorded Sex Assigned at BirthNot on fileLegal RngUrvw8009/11/2014 11:32 AM EDTGender IdentityNot on fileSexual OrientationNot on file Plan of Treatment Not on file Medical Devices Not on file Insurance Care Teams Team MemberRelationshipSpecialtyStart DateEnd Date Matt Black DO [address] [place] [id number] [facility] - General09/15/16
--- OUTSIDE RECORDS SUMMARY | 2024-12-11 10:25 | XMS_ITS | Patient Health Record ---
Author Organization [facility] Address [address] [place] [address] Care Team Providers Care Military Nurse Name Role Phone DonAbelen Unavailable [phone] Aylin Segura Unavailable [phone] Allergies Allergen (clinical drug ingredient) Drug/Non Drug Allergy documented on EMR Reaction Allergy Type Onset Date Status nafcillinProblems with kidneysDrug AllergyActive Reason For Referral No Information Medications Medication SIG (Take, Route, Frequency, Duration) Notes Start Date End Date Status Iron ActiveTylenol ArthritisActiveCo Q-10ActiverosuvastatinActiveFish OilActive omeprazoleActiveminocyclineActiveamLODIPineActive Social History Tobacco Use: Social History Observation Description Date Details (start date - stop date) Never Smoker NA - NA Smoking History Question Answer Notes Smoking Status NonSmoker Problems Problem Type SNOMED Code ICD Code Onset Dates Problem Status W/U Status Risk Notes Problem [id number] 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) [id number] osteoarthritis, left shoulder (M19.012)NyfsshjxjkjarkkSrhmycz49790569462565592Wrafnvq 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)Activeconfirmed Encounters Encounter Location Date Provider Diagnosis [facility] [address] [place] [address] [place] [address] 07/17/2024 Aylin Segura Pain in right should er M25.511 ; Pain in left shoulder M25.512 ; Osteoarthritis of right glenohumeral joint M19.011 and Primary osteoarthritis, left shoulder M19.012 Assessments Encounter Date Diagnosis (ICD Code) Assessment Notes Treatment Notes Treatment Clinical Notes Section Notes 07/17/2024 Pain in right shoulder (ICD-10 - M25.511) 07/17/2024Pain in left shoulder (ICD-10 - M25.512)07/17/2024Osteoarthritis of right glenohumeral joint (ICD-10 - M19.011)07/17/2024Primary osteoarthritis, left shoulder (ICD-10 - M19.012)07/17/2024Other We have discussed further treatment today. At this time he is doing well and would not want to proceed with anything further. I did discuss cortisone injections in the future and he will call if he wishes to pursue these. Plan has been agreed upon by my supervising physician, []MD. Plan Of Treatment Pending Test Test Name Order Date SCC- SHOULDER 3 VIEW RIGHT 54467 025 SCC- SHOULDER 3 VIEW LEFT 07698 07/18/19 25 Insurance Providers Payer Name Payer Address Payer Phone Subscriber Number Group Number Insured Name Patient Relationship to Insured Coverage Start Date Coverage End Date [employer] [address] [address] [place] [address] [id number] [place] Self - [place] [id number], THOMASSelf - patient is the [id number] 2024 Medical (General) History Medical History History ICD Code Do you have a pacemaker or A ICD(automatic internal cardiac defibrillator)? No Latex Allergy NoDrug Allergies: YesBariatric Surgery: NoCancerKidney trouble Surgical History Surgery Date(Month/Year) Knee replacement 2014 Hip replacement 2015
--- OUTSIDE RECORDS SUMMARY | 2024-12-11 10:25 | XMS_ITS | Clinical Summary ---
Author Organization [facility] Address [address], [address] [place] [address] Care Team Providers Care Phlebotomy Instructor Name Role Phone Matt Black DO Primary Care Provider Unavail able Allergies No known active allergies Medications MedicationSigDispense QuantityRefillsLast FilledStart DateEnd DateStatus esomeprazole Magnesium (NEXIUM) 40 MG PACK Take 40 mg by mouth dailyActive rosuvastatin (CRESTOR) 10 MG tablet Take 10 mg by mouth dailyActive amLODIPine (NORVASC) 10 MG tablet Take 10 mg by mouth dailyActive Active Problems ProblemNoted DateDiagnosed DateOsteoarthritis of right hip08/14/2014GERD (gastroesophageal reflux disease)08/14/2014 Family History RelationNameStatusCommentsFatherAliveMotherAlive Social History Tobacco UseTypesPacks/DayYears UsedDateSmoking Tobacco: Light SmokerAlcohol Use Standard Drinks/WeekCommentsYes0 (1 standard drink = 0.6 oz pure alcohol) occasionallySex and Gender InformationValueDate RecordedSex Assigned at BirthNot on fileLegal PauYgxq2607/21/2014 1:51 PM EDTGender IdentityNot on fileSexual OrientationNot on file Last Filed Vital Signs Vital SignReadingTime TakenCommentsBlood Vvwyhfik892/7107 7:23 AM EDT Bamja5543 7:23 AM AZSLiicunrbtzm81.8 ??C (98.2 ??F)08/16/2014 7:23 AM EDTRespiratory Vjzj3008 7:23 AM EDTOxygen Kzilknqvmz16%08/16/2014 7:23 AM EDTInhaled Oxygen Concentration--Escgcg117.3 kg (249 lb 11.2 oz)08/16/2014 3:00 AM OKOBvjgft164.7 cm (6' 1.5 )08/13/2014 6:54 AM EDTBody Mass Index32.5 08/13/2014 6:54 AM EDT Plan of Treatment Not on file Advance Directives * Full Code (Latest Code Status on File) Date ActivatedDate InactivatedComments08/13/2014 1:16 PM08/16/2014 3:57 PM Care Teams Team MemberRelationshipSpecialtyStart DateEnd Date Matt Black DO [address] [place] [address] PCP - General07/23/14
--- OUTSIDE RECORDS SUMMARY | 2024-12-11 10:29 | XMS_ITS | CCD ---
Author Organization [facility] Care Team Providers Care Blow Molder Name Role Phone HÉCTOR LIANET Admitting Unavailable HÉCTOR ABRAHANYuri Attending Unavailable JUVENCIO SANCHEZ Referring Unavailable JUVENCIO SANCHEZ Primary Care Unavailable JUARES JR, MALLORY L Consulting Unavailable JUARES JR, MALLORY L Attending Unavailable JUARES JR, MALLORY L Admitting Unavailable JUVENCIO SANCHEZ Primary Care Unavailable RIC SERNA Consulting Unavailable JUVNECIO SANCHEZ Primary Care Unavailable JUARES JR, MALLORY L Consulting Unavailable JUARES JR, MALLORY L Attending Unavailable JUARES JR, MALLORY L Admitting Unavailable DAVID REEVES Consulting Unavailable JUVENCIO SANCHEZ Consulting Unavailable JUARES JR, MALLORY L Admitting Unavailable JUARES JR, MALLORY L Attending Unavailable JUVENCIO CHATMAN V Consulting Unavailable JUARES JR, MALLORY L Consulting Unavailable JUARES JR, MALLORY L Admitting Unavailable JUVENCIO SANCHEZ Primary Care Unavailable JUARES JR, MALLORY L Consulting Unavailable JUARES JR, MALLORY L Attending Unavailable JUVENCIO SANCHEZ Primary Care Unavailable JUARES JR, MALLORY L Consulting Unavailable JUARES JR, MALLORY L Attending Unavailable JUARES JR, MALLORY L Admitting Unavailable STEPHAN HARDING Consulting Unavailable Juvencio Sanchez Primary Care Physician Juvencio Sanchez Unavailable Mireya Pichardo Unavailable Jodie Figueroa Unavailable DO Juvencio Sanchez Primary Care Provider DO Juvencio Sanchez Attending Provider Brandy Stovall Unavailable DO Juvencio Sanchez Primary Care Provider DO Juvencio Sanchez Attending Provider [phone] DO Juvencio Sanchez Referring Provider MD Mireya Pichardo Attending Provider Juvencio Sanchez DO Primary Care Provider Dedra SILVAA, Montserrat Unavailable [phone] Maurizio KWOK, Kevin Unavailable [phone] DO Juvencio Sanchez Primary Care Provider DO Juvencio Sanchez Attending Provider Juvencio Sanchez DO Primary Care Provider Addis Bell Unavailable DO Juvencio Sanchez Primary Care Provider [phone] TERRY Bell Attending Provider Dedra FAN, [place]serrat Unavailable [phone] YESSY LO Attending Unavailable YESSY LO Admitting Unavailable JUVENCIO SANCHEZ Primary Care Unavailable DO Juvencio Sanchez Attending Provider [phone] MD Mireya Pichardo Referring Provider Juvencio Sanchez MD Primary Care Provider [phone] PAXTON FOSTER Referring Unavailable JUVENCIO SANCHEZ Primary Care Unavailable JUVENCIO SANCHEZ Primary Care Unavailable SYMONE WOODY Attending Unavailable JUVENCIO SANCHEZ Primary Care Unavailable SYMONE WOODY Attending Unavailable SYMONE WOODY Attending Unavailable JUVENCIO SANCHEZ Primary Care Unavailable PAXTON FOSTER Attending Unavailable JUVENCIO SANCHEZ Primary Care Unavailable DO Juvencio Sanchez Primary Care Provider [phone] DO Kevin Nunez Emergency Provider MD Angeli Broderick Admit Provider MD Angeli Broderick Attending Provider ESTHER Duron Other Provider Unavailable MD Moises Donnelly Other Provider MD Amilcar Song Other Provider MD Radha Ames Other Provider MD Radha Ames Attending Provider MD Radha Ames Referring Provider [phone] MD Akbar Torres Attending Provider DO Juvencio Sanchez Primary Care Provider MD Radha Ames Attending Provider Juvencio Sanchez DO Primary Care Provider Hui THORNTON, Radha Attending Provider [phone] Juvencio Sanchez DO Attending Provider Marino THORNTON, Mireya Other Provider Juvencio Sanchez DO Primary Care Provider Juvencio Sanchez DO Primary Care Provider Jacob ELECTRICAL ESTIMATOR-, Yesenia Mcintyre Emergency Provider [phone] Pippa THORNTON, Altaf Mendez Attending Provider Juvencio Sanchez DO Primary Care Provider Juvencio Sanchez DO Attending Provider Pippa THORNTON, Altaf Mendez Attending Provider Akbar TORRES Attending Unavailable Akbar TORRES Admitting Unavailable Akbar TORRES Attending Unavailable Juvencio Sanchez DO Primary Care Provider Pippa THORNTON, Altaf Mendez Attending Provider Hui THORNTON, Radha Attending Provider Juvencio Sanchez DO Primary Care Provider Juvencio Sanchez DO Attending Provider Mireya Pichardo MD Other Provider Alanna Tidwell MD Emergency Provider Juvencio Sanchez MD Primary Care Provider [phone] Juvencio Sanchez DO Primary Care Provider Mireya Pichardo MD Attending Provider Juvencio Sanchez DO Attending Provider [phone] Altaf Das MD Attending Provider Mireya Pichardo MD Referring Provider Juvencio Sanchez MD Primary Care Provider TORRES, Akbar R Attending Unavailable TORRES, Akbar R Attending Unavailable TORRES, Akbar R Attending Unavailable TORRES, Akbar R Admitting Unavailable TORRES, Akbar R Attending Unavailable TORRES, Akbar R Admitting Unavailable TORRES, Akbar R Attending Unavailable Orzech, Rose X Attending Unavailable Orzech, Rose X Attending Unavailable Orzech, Rose X Attending Unavailable TORRES, Akbar R Admitting Unavailable TORRES, Akbar R Attending Unavailable TORRES, Akbar R Attending Unavailable TORRES, Akbar R Admitting Unavailable TORRES, Akbar R Attending Unavailable TORRES, Akbar R Admitting Unavailable JUARES, BANDAR H Attending Unavailable JUARES, BANDAR H Attending Unavailable JUARES, BANDAR H Attending Unavailable JUARES, BANDAR H Attending Unavailable Daniel FIERRO, Juvencio Primary Care Provider Lashawn Pineda APRN Attending Provider Juan Miguel Golden PA-C Emergency Provider Ena Madison Attending Provider Unavailab Radha Jones MD Attending Provider [phone] Juvencio Sanchez DO Attending Provider Mireya Pichardo MD Attending Provider Juvencio Sanchez Primary Care Unavailable Juan Miguel Golden Admitting Unavailable Juan Miguel Golden Attending Unavailable Bullimore Yesenia E Attending Unavailable Bullyue, Yesenia Miguelina Admitting Unavailable Juvencio Sanchez Primary Care Unavailable Daniel, Juvencio Primary Care Unavailable MarinoMireya Admitting Unavailable Mireya Pichardo Attending Unavailable Juvencio Sanchez Admitting Unavailable Daniel, Juvencio Primary Care Unavailable Daniel, Juvencio Attending Unavailable Marino, Mireya Referring Unavailable Juvencio Sanchez Primary Care Unavailable Al-Marrawi, Mhd Yaser Admitting Unavailabl e Al-Marrawi, Altaf Davisser Attending Unavailabl e Juvencio Sanchez Primary Care Unavailable Al-Marrawi, Mhd Yaser Admitting Unavailabl e Al-Marrawi, Altaf Davisser Attending Unavailabl e Juvencio Sanchez Attending Unavailable Daniel, Juvencio Admitting Unavailable Gricel Pichardoul Consulting Unavailable Daniel, Juvencio Primary Care Unavailable Daniel, Juvencio Attending Unavailable Daniel, Juvencio Admitting Unavailable Juvencio Sanchez Primary Care Unavailable Radha Ames Admitting Unavailable Radha Ames Attending Unavailable Juvencio Sanchez Primary Care Unavailable Juvencio Sanchez Attending Unavailable Juvencio Sanchez Admitting Unavailable Juvencio Sanchez Primary Care Unavailable Mireya Pichardo Consulting Unavailable Radha Ames Admitting Unavailable Radha Ames Attending Unavailable Juvencio Sanchez Primary Care Unavailable Daniel, Juvencio Primary Care Unavailable Alanna Tidwell Admitting Unavailable Alanna Tidwell Attending Unavailable Allergies Allergy ClassificationReported Allergen(s)Allergy TypeDate of OnsetReaction(s) Facility (8 sources)Nafcillin; Translations: [NAFCILLIN]Drug Lhlplkw10-50-2085Bgdpvzj ReactionCore[facility]ository (20 sources)Nafcillin; Translations: [nafcillin]Drug Wackets34-49-1947Gnymapm (qualifier value), Other: See Comments, UnknownExec[facility] ([facility] sources)nafcylin / Jan 2015 / abnormal kidney studiesPropensity to adverse reactionsdiarrH[facility] Other (1 source)nafcylin / Jan 2015 / abnormalAllergy to lldoqyxem10-58-1764vbrdbqsjAv[facility] (2 sources)NafcillinDrug Sfhhvlv80-41-8352UsofgcbfzProv[facility] Rep[facility] Medications Current Medications MedicationDrug Class(es)DatesSig (Normalized)Sig (Original)8 hr acetaminophen 650 mg extended release oral tablet (20 sources)Start: 52-84-1995hwmb 2 tablets by mouth every eight hours as needed Start: 76-05-9862Wmyktvw PM Oral, Once a day (at bedtime) Start Date: 12/04/19 Status: OrderedStart: 64-16-4252Znaamqh Oral Start Date: 12/04/19 Status: Ordered Repeat number: 1Start: 44-07-7552Cpeedge Oral Start Date: 12/04/19 Status: OrderedStart: 72-33-0069panc 2 tablets by mouth every eight hours as neededacetaminophen (TYLENOL) 500 mg tablet Take 2 tablets by mouth every 8 hours as needed. 60 tablet 0 06/17/2015 ActiveComment on above:Take 2 tablets by mouth every 8 hours as needed.acetaminophen 500 mg / diphenhydrAMINE hydrochloride 25 mg oral tablet (20 sources)Histamine-1 Receptor AntagonistStart: 21-85-0401ggzv 1 tablet by mouth once daily at bedtime as needed for sleepStart: 92-14-2156Jenqcnx PM Oral, Once a day (at bedtime) Start Date: 12/04/19 Status: Ordered Repeat number: 1 Start: 95-94-3443Lfcojoy PM Oral, Once a day (at bedtime) Start Date: 12/04/19 Status: Orderedazithromycin 250 mg oral tablet (1 source)Macrolide AntimicrobialStart: 19-54-6897Xipznlqcjncs 250 MG 2 tablets on day 1 Orally then take 1 tablet daily on days 2-5 for 5 days May, Activebenzonatate 100 mg oral capsule (20 sources)Non-narcotic AntitussiveStart: 06-11-2024 End: 38-00-1073xwxu 2 capsules by mouth three times dailyStart: 49-12-2155fdcl 2 capsules by mouth every eight hoursTessalon Perles 100 mg 2 capsules Orally Three times a day for 10 day(s) Mar, Activecalcium ascorbate 500 mg oral tablet (20 sources)Start: 84-87-9956wywn 1 tablet by mouth once dailycholecalciferol 0.125 mg oral capsule (20 sources)Vitamin DStart: 36-92-3935yies 1 capsule by mouth once mhcuhFzQ74 (20 sources)Start: 92-53-9111pkfk 200 mg by mouth once zkjkgToY11 200 mg, Oral, Daily Start Date: 12/04/19 Status: Ordered Repeat number: 1Start: 08-68-7431xrrl 200 mg by mouth once gugawLuV66 200 mg, Oral, Daily Start Date: 12/04/19 Status: Ordereddocosahexaenoic acid/epa (FISH OIL ORAL) (9 sources)take 1000 mg by mouth once dailydocosahexaenoic acid/epa (FISH OIL ORAL) Take 1,000 mg by mouth once daily. Activetake 1000 mg by mouth once daily docosahexaenoic acid/epa (FISH OIL ORAL) Take 1,000 mg by mouth once daily. 0 ActiveComment on above:Take 1,000 mg by mouth once daily.esomeprazole 40 mg delayed release oral capsule (15 sources)Proton Pump Inhibitortake 1 capsule by mouth in the morning esomeprazole (NexIUM) [address] capsule Take 40 mg by mouth in the morning. ActiveComment on above:Take 40 mg by mouth once daily.ferrous sulfate (16 sources)Start: 53-19-0900laiu 1 tablet by mouth once dailyFerrous Sulfate 325 (65 Fe) MG 1 tablet Orally 1 day a week Sep, ActiveStart: 09-26-2017 take 1 tablet by mouth once dailyFerrous Sulfate 325 (65 Fe) MG 1 tablet Orally 1 day a week Sep, Activetake 65 mg by mouth three times weeklyferrous sulfate (IRON ORAL) Take 65 mg by mouth three times a week. Activetake 65 mg by mouth three times weeklyferrous sulfate (IRON ORAL) Take 65 mg by mouth three times a week. 0 ActiveComment on above:Take 65 mg by mouth three times a week. finasteride 5 mg oral tablet (12 sources)5-alpha Reductase InhibitorStart: 14-10-3827ijvf 1 tablet by mouth once dailyFish Oils (20 sources)Start: 54-64-3319oqzk 2 capsules by mouth once dailyCO-Q 10 [place]-3 Fish Oil 200 mg 2 capsules Orally daily Jul, ActiveFish Oil ActiveIron (20 sources)Start: 08-54-3377Slug Iron Start Date: 12/04/19 Status: Ordered Repeat number: 1Start: 55-47-6062Qskt Iron Start Date: 12/04/19 Status: Ordered Mens 50+ Multi Vitamin/Min (20 sources)Mens 50+ Multi Vitamin/Min as directed Orally Activeminocycline 100 mg oral capsule (20 sources)Tetracycline-class DrugStart: 82-23-2073tiob 1 capsule by mouth once dailyminocycline (MINOCIN, DYNACIN) 100 mg capsule Indications: S/P revision of total hip Take 1 capsuleby mouth once daily. 90 capsule 3 03/04/2024 Active Start: 04-19-2023 End: 98-75-3942Audpunklaxf 50 mg capsule Discontinued 50 MG PO June 27, 2023 9:31am June 27, 2023 9:51amStart: 02-22-2023 End: 44-24-5346aoeg 1 capsule by mouth once dailyStart: 75-47-5526gkyp 1 capsule by mouth once dailyminocycline (MINOCIN, DYNACIN) 100 mg capsule Indications: S/P revision of total hip Take 1 capsuleby mouth once daily. 90 capsule 3 02/28/2022 ActiveStart: 03-03-2021 End: 93-75-5444tjtf 1 capsule by mouth once dailyminocycline (MINOCIN, DYNACIN) 100 mg capsule Indications: S/P revision of total hip Take 1 capsuleby mouth once daily. 90 capsule 3 03/03/2021 02/26/2022 DiscontinuedStart: 05-06-2017 End: 17-99-9591ksjs 1 tablet by mouth once dailyMinocycline 100 mg Tablet Discontinued 100 MG PO Daily May 06, 2017 12:00am April 19, 2023 10:31am take 1 capsule by mouth every twenty-four hoursMinocycline 50 MG 1 capsule Orally qd ActiveComment on above:Take 1 capsule by mouth once daily.Multi Vitamins oral tablet (20 sources)Start: 40-12-5517uhld 1 tablet by mouth once dailyMulti Vitamins oral tablet 1 tab(s), Oral, Daily Start Date: 12/04/19 Status: Ordered Repeat number: 1Start: 67-97-7443rgyx 1 tablet by mouth once dailyMulti Vitamins oral tablet 1 tab(s), Oral, Daily Start Date: 12/04/19 Status: Ordered Ivonhzlt-Mor-Evfnv-Vit K-Lycop (Men's 50 Plus Multivitamin) 400-20-370 mcg tablet (20 sources)Start: 32-55-8140rpbf 50-400 tablets by mouth once daily Fnddpxbg-Xcb-Trudr-Vit K-Lycop (Men's 50 Plus Multivitamin) 400-20-370 mcg tablet Active 1 TAB PO Daily April 19, 2023 12:00am Complies with drug therapy Start: 14-37-6199zmiy 50-400 tablets by mouth once dailyStart: 00-34-6635pdrk 50-400 tablets by mouth once sighoTovetewj-Pcw-Yddsf-Vit K-Lycop (Men's 50 Plus Multivitamin) 400-20-370 mcg tablet Active 1 TAB PO Daily April 18, 2023 11:00pmStart: 55-96-1031dqfy 50-400 tablets by mouth once daily Huzrtsvh-Sgx-Gbdxt-Vit K-Lycop (Men's 50 Plus Multivitamin) 400-20-370 mcg tablet Active 1 TAB PO Daily April 19, 2023 12:00ammupirocin 0.02 mg/mg topical ointment (6 sources)RNA Synthetase Inhibitor AntibacterialStart: 02-92-6893Ejhkf 4-Lvb-Osg-Fish Oil (Fish Oil) 1,200 (144-216) mg capsule (20 sources)Start: 43-64-5703wibc 1 capsule by mouth once dailyOmega 2-Ctb-Oup-Fish Oil (Fish Oil) 1,200 (144-216) mg capsule Active 1 CAP PO Daily April 19, 2023 12:00am Complies with drug therapyStart: 98-33-3128yqta 1 capsule by mouth once dailyStart: 49-52-1602bodw 1 capsule by mouth once daily [place] 5-Sxa-Zxs-Fish Oil (Fish Oil) 1,200 (144-216) mg capsule Active 1 CAP PO Daily April 18, 2023 11:00pmStart: 09-01-8640uymh 1 capsule by mouth once dailyOmega 1-Oil-Yof-Fish Oil (Fish Oil) 1,200 (144-216) mg capsule Active 1 CAP PO Daily April 19, 2023 12:00amStart: 12-68-0009Vlpzj 1-Mle-Rud-Fish Oil (Fish Oil) 1,200 (144-216) mg capsule Active CAP PO April 19, 2023 12:00am rosuvastatin calcium 10 mg oral tablet (20 sources)HMG-CoA Reductase InhibitorStart: 96-25-2314vpit 1 tablet by mouth once dailyStart: 23-91-0076qrgz 1 tablet by mouth once dailyRosuvastatin 10 mg tablet Active 0 .ROUTE .COMPLEX 90 June 10, 2024 12:03pm Take 1 tablet by mouth once dailyStart: 06-10-2024 End: 34-48-5117fdjd 1 tablet by mouth once dailyRosuvastatin 10 mg tablet Discontinued 0 .ROUTE .COMPLEX 90 June 10, 2024 12:03pm June 24, 2024 9:11am Take 1 tablet by mouth once dailyStart: 12-04-2019 End: 75-19-0369vicw 1 tablet by mouth once dailyRosuvastatin 10 mg tablet Discontinued 10 MG PO Daily June 27, 2023 9:52am September 20, 2023 11:33am Start: 03-20-2015 End: 57-30-4050sbfk 1 tablet by mouth once dailyRosuvastatin 5 mg Tablet Discontinued 5 MG PO Daily May 06, 2017 12:00am April 19, 2023 10:30am Comment on above:Take 1 tablet by mouth daily at bedtime.therapeutic multivitamin (THERA VITAMIN) tablet (9 sources)Start: 04-11-1005vvpz 1 tablet by mouth once dailytherapeutic multivitamin (THERA VITAMIN) tablet Take 1 tablet by mouth once daily. 90 tablet 0 03/20/2015 ActiveComment on above:Take 1 tablet by mouth once daily. tiZANidine 2 mg oral tablet (9 sources)Central alpha-2 Adrenergic AgonistStart: 42-35-9032qtxf 1 tablet by mouth every twelve hours as neededtiZANidine (ZANAFLEX) 2 mg tablet Take 1 tablet by mouth twice daily as needed. 60 tablet 1 09/18/2019 ActiveComment on above:Take 1 tablet by mouth twice daily as needed.24 hr tolterodine tartrate 4 mg extended release oral capsule (20 sources)Cholinergic Muscarinic AntagonistStart: 24-67-0873nfni 1 capsule by mouth once dailytolterodine 4 mg Cap-ER 4 mg = 1 cap(s), Oral, Daily, # 30 cap(s), Refills(s) 1, Pharmacy: [id number], 186, cm, 11/10/20 14:01:00 EDT, Height/Length Dosing, 119, kg, 11/10/20 14:01:00 EDT,Weight Dosing Start Date: 12/09/20 Status: Ordered Quantity: 30.0 Unit: cap(s) Repeat number: 2take 2 tablets by mouth every twelve hoursTolterodine Tartrate 2 MG 2 tablet Orally Twice a day for 30 Not-TakingTylenol Arthritis Pain 650 MG (20 sources)take 2 tablets by mouth every eight hours as neededTylenol Arthritis Pain 650 MG 2 tablets as needed Orally every 8 hrs Activeubidecarenone 100 mg oral capsule (20 sources)Start: 29-58-9674Cfass: 06-27-2023 End: 47-10-9602Xisrfxkb Q10 (Co Q-10) 100 mg capsule Discontinued 100 MG PO Daily June 27, 2023 12:00am June 9:11amubiquinol 200 mg oral capsule (9 sources)take 200 mg by mouth once iemvdSWR81, UBIQUINOL, ORAL Take 200 mg by mouth once daily. ActiveComment on above:Take 200 mg by mouth once daily.Vitamin C 500 MG (20 sources)Vitamin C 500 MG as directed Orally ActiveVitamin D3 (20 sources)Vitamin D3 ActiveZinc + Vitamin C (20 sources)Zinc + Vitamin C Activezinc acetate 50 mg oral capsule (20 sources)Start: 30-06-1849nhgh 1 capsule by mouth once daily Completed/Discontinued Medications MedicationDrug Class(es)DatesSig (Normalized)Sig (Original)acetaminophen 325 mg / HYDROcodone bitartrate 5 mg oral tablet (14 sources)Opioid AgonistStart: 01-15-2024 End: 88-18-7334ownj 1 tablet by mouth every six hours as needed for pain Hydrocodone-Acetaminophen 5-325 mg tablet Discontinued 1 TAB PO Every 6 hours as needed for pain 103 0 January 15, 2024 June 11, 2024 2:12pm Contusion of left knee Contusion of left knee, initial encounteramiodarone hydrochloride 200 mg oral tablet (20 sources)AntiarrhythmicStart: 06-30-2023 End: 56-31-3235ijxc 1 tablet by mouth once dailyAmiodarone 200 mg tablet Discontinued 200 MG PO Daily 90 90 0 June 03, 2024 9:27am August 29, 2024 9:51amStart: 06-30-2023 End: 16-47-8431hiev 2 tablets by mouth twice dailyAmiodarone 200 mg tablet Discontinued 400 MG PO Twice daily 40 10 June 30, 2023 12:00am July 31, 2023 10:17amStart: 06-30-2023 End: 48-86-3802kkei 400 mg by mouth twice dailyAmiodarone Discontinued 400 MG PO Twice daily 40 June 30, 2023 12:00am July 31, 2023 10:17amamLODIPine 10 mg oral tablet (20 sources)Dihydropyridine Calcium Channel BlockerStart: 08-28-2023 End: 89-60-2393nerl 1 tablet by mouth once dailyAmlodipine 10 mg tablet Discontinued 10 MG PO Daily 90 90 1 March 11, 2024 11:48am June 10, 2024 11:44amStart: 03-20-2015 End: 52-79-4618iesr 1 tablet by mouth once dailyAmlodipine 5 mg Tablet Discontinued 5 MG PO Daily May 06, 2017 12:00am August 28, 2023 4:01pm Comment on above:Take 1 tablet by mouth once daily.amoxicillin 875 mg / clavulanate 125 mg oral tablet (20 sources)Penicillin-class AntibacterialStart: 05-06-2017 End: 12-96-0614iaeu 1 tablet by mouth twice dailyAmoxicillin-Pot Clavulanate (Augmentin) 875-125 mg tablet Discontinued 1 TAB PO Twice daily 10 0 May 06, 2017 12:00am April 19, 2023 11:14amapixaban 5 mg oral tablet (20 sources)Factor Xa InhibitorStart: 06-30-2023 End: 01-82-5930kxje 1 tablet by mouth twice dailyApixaban (Eliquis) 5 mg tablet Discontinued 5 MG PO Twice daily 180 90 3 July 13, 2023 12:51pm July 31, 2023 10:16amascorbic acid 500 mg oral capsule (20 sources)Vitamin CStart: 04-19-2023 End: 13-74-8947Kqiuzvdf Acid (Vitamin C) 500 mg capsule Discontinued 1 CAP PO As Directed April 19, 2023 12:00amNovember 21, 2023 1:25pm FreeTextSig: as directed Orally; Note: Source Status: Taking; Provider: Jeremy Patrickrt: 04-19-2023 End: 75-13-0708Trcwdbdv Acid (Vitamin C) Discontinued 1 CAP PO As Directed April 19, 2023 12:00am November 21, 2023 1:25pm FreeTextSig: as directed Orally; Note: Source Status: Taking; Provider: Jeremy Patrickrt: 59-99-6419zcoe 1 tablet by mouth twice daily at mealtimeascorbic acid (VITAMIN C) 500 mg tablet Take 1 tablet by mouth twice daily with meals. 90 tablet 0 03/20/2015 Active Vitamin C 500 MG as directed Orally ActiveComment on above:Take 1 tablet by mouth twice daily with meals.aspirin 81 mg delayed release oral tablet (20 sources)Platelet Aggregation Inhibitor, Nonsteroidal Anti-inflammatory Drug Start: 05-06-2017 End: 43-28-9938mgyl 1 tablet by mouth once dailyAspirin 81 mg Tablet,Delayed Release (Dr/Ec) Discontinued 81 MG PO Daily May 06, 2017 12:00am June 27, 2023 9:27amciprofloxacin 500 mg oral tablet (7 sources)Quinolone AntimicrobialStart: 17-45-6795dgww 1 tablet by mouth once dailyCipro 500 mg Tab 500 mg = 1 tab(s), Oral, Daily, Take 1 tablet the day before the procedure and 1 tablet after the procedure, # 2 tab(s), Refills(s) 0, Pharmacy: [id number], 184, cm, 03/27/24 7:52:00 EST, Height/Length Dosing, 114, kg, 03/27/24 7:52:00 EST, Weight Dosing Start Date: 09/25/24 Status: Ordered Quantity: 2.0 Unit: tab(s) Repeat number: 1Start: 70-01-7535fzry 1 tablet by mouth once dailyCipro 500 mg Tab 500 mg = 1 tab(s), Oral, Daily, Take 1 tablet the day before the procedure and 1 tablet after the procedure, # 2 tab(s), Refills(s) 0, Pharmacy: [id number], 184, cm,03/27/24 7:52:00 EST, Height/Length Dosing, 114, kg, 03/27/24 7:52:00 EST, Weight Dosing Start Date: 08/16/24 Status: Ordered Quantity: 2.0 Unit: tab(s) Repeat number: 1Start: 58-99-6657sili 1 tablet by mouth once dailyCipro 500 mg Tab 500 mg = 1 tab(s), Oral, Daily, Take 1 tablet the day before the procedure and 1 tablet after the procedure, # 8 tab(s), Refills(s) 0, Pharmacy: [id number], 186, cm, 12/18/20 8:44:00 EST, Height/Length Dosing, 119, kg, 12/18/20 8:44:00 E... Start Date: 12/20/20 Status: Orderedgabapentin 600 mg oral tablet (20 sources)Anti-epileptic AgentStart: 04-19-2023 End: 35-67-0564gxnu 1 tablet by mouth once dailyGabapentin 600 mg tablet Discontinued 1 TAB PO Daily April 19, 2023 12:00am April 19, 2023 11:15am FreeTextSi tablet Orally Once a day; Note: Source Status: Taking; Provider: Marino Gomes ( )Start: 12-13-2022 End: 02-19-8033dnnj 1 tablet by mouth once daily at bedtimegabapentin (NEURONTIN) 600 mg tablet Take 1 tablet by mouth daily at bedtime for 90 days. 30 tablet2 12/13/2022 ActiveStart: 06-25-2019 End: 88-12-6613mxwplhzxhm (NEURONTIN) 300 mg capsule Indications: Spinal stenosis, lumbar region with neurogenic claudication 1 Capsule FOR 3 NIGHTS, THEN 2 CAPSULES FOR 3 NIGHTS THEN 3 CAPSULES EVERY NIGHT 90 capsule 1 06/25/2019 12/13/2022 Discontinued (Course of therapy completed)Comment on above:1 Capsule FOR 3 NIGHTS, THEN 2 CAPSULES FOR 3 NIGHTS THEN 3 CAPSULES EVERY NIGHTTake 1 tablet by mouth daily at bedtime for 90 days.lisinopril 5 mg oral tablet (20 sources)Angiotensin Converting Enzyme InhibitorStart: 01-15-2019 End: 10-32-4455afqt 1 tablet by mouth once dailyLisinopril 5 mg tablet Discontinued 5 MG PO Daily June 27, 2023 12:00am January 15, 2024 3:42pm Comment on above:TK 1 T PO QD24 hr metoprolol succinate 25 mg extended release oral tablet (20 sources)beta-Adrenergic BlockerStart: 07-31-2023 End: 31-57-4330flzj 1 tablet by mouth once dailyMetoprolol Succinate 25 mg tablet extended release 24 hr Discontinued 25 MG PO Daily 90 30 1 April 12, 2024 12:11pm October 09, 2024 3:24pmStart: 05-34-7646jfuq 1 tablet by mouth every twenty-four hours in the morningmetoprolol succinate XL (Toprol-XL) 50 MG 24 hr tablet Take 50 mg by mouth in the morning and 50 mgbefore bedtime. 06/30/2023 ActiveStart: 06-30-2023 End: 85-05-4239satf 1 tablet by mouth twice dailyMetoprolol Succinate 50 mg Tablet Extended Release 24 Hr Discontinued 50 MG PO Twice daily 60 30 2 June 30, 2023 12:00am July 31, 2023 10:18amomeprazole 40 mg delayed release oral capsule (20 sources)Proton Pump InhibitorStart: 03-16-5213prifbvewsv Oral, Daily Start Date: 12/04/19 Status: Ordered Repeat number: 1Start: 88-56-8784lsujgsvgqj Oral, Daily Start Date: 12/04/19 Status: OrderedStart: 03-08-2016 End: 95-16-9441feou 1 capsule by mouth once dailyOmeprazole 40 mg Capsule,Delayed Release(Dr/Ec) Discontinued 40 MG PO Daily May 06, 2017 12:00am April 17, 2023 10:42ampredniSONE 20 mg oral tablet (19 sources)Start: 06-11-2024 End: 23-26-1535kqkx 3 tablets by mouth once daily at mealtime, then take 2 tablets by mouth once daily, then take 1 tablet by mouth once daily at mealtime Prednisone 20 mg tablet Discontinued 0 PO .with food or milk 18 9 0 June 11, 2024 4:01pm June 24, 2024 9:09am take 3 tablets a day x3 days, 2 tabs a day x3 days and then 1 tab a day x3 days orally WITH FOOD OR MILK;probiotic (20 sources)Start: 06-27-2023 End: 29-10-9421eeshzhiqo Discontinued PO June 26, 2023 11:00pm August 28, 2023 2:07pmStart: 06-27-2023 End: 09-90-6151ukkjfcbca Discontinued PO June 27, 2023 12:00am August 28, 2023 3:07pmStart: 07-96-0593lepmtuvbb Active PO June 27, 2023 12:00amprobiotic Activerivaroxaban 20 mg oral tablet (20 sources)Factor Xa InhibitorStart: 07-31-2023 End: 40-14-7099fbqb 1 tablet by mouth once daily at dinnerRivaroxaban (Xarelto) 20 mg tablet Discontinued 20 MG PO Every evening 90 90 3 August 29, 2023 10:11am February 26, 2024 1:43pm must administer with evening mealStart: 07-04-2023 End: 41-01-5458ubin 1 tablet by mouth once daily at dinnerRivaroxaban (Xarelto) 20 mg tablet Discontinued 20 MG PO Every evening 30 30 2 July 04, 2023 12:00am July 05, 2023 4:25pm must administer with evening mealtamsulosin hydrochloride 0.4 mg oral capsule (12 sources)alpha-Adrenergic BlockerStart: 03-27-2024 End: 20-14-6383Gxrmipqvgi 0.4 mg capsule Discontinued MG PO June 25, 2024 12:00am June 25, 2024 9:55amVitamin d 3 (20 sources)Start: 06-27-2023 End: 16-39-2160Cbisbpm d 3 Discontinued PO June 26, 2023 11:00pm August 28, 2023 2:07pmStart: 06-27-2023 End: 40-97-3531Bipuzoo d 3 Discontinued PO June 27, 2023 12:00am August 28, 2023 3:07pmStart: 71-96-1897Uclyfep d 3 Active PO June 27, 2023 12:00amZinc and vitamin c (20 sources)Start: 06-27-2023 End: 94-30-9421Zmwq and vitamin c Discontinued PO June 26, 2023 11:00pm August 28, 2023 2:08pmStart: 06-27-2023 End: 97-43-7664Febp and vitamin c Discontinued PO June 27, 2023 12:00am August 28, 2023 3:08pmStart: 19-15-7736Zltv and vitamin c Active PO June 27, 2023 12:00am Problems Active Problems Problem ClassificationProblemDateDocumented DateEpisodic/ChronicAcquired foot deformities (20 sources)Acquired hammer toe of right foot; Translations: [Other hammer toe(s) (acquired), right foot]ChronicAcquired foot deformities (20 sources)Right foot drop; Translations: [Foot drop, right foot]Onset: 209708-28-1495QjakalmbLoqve and unspecified renal failure (9 sources)Acute renal failure syndrome; Translations: [Acute kidney failure, unspecified]58-10-0625VxyoulabXbajho; peripheral; and visceral artery aneurysms (17 sources)Abdominal aortic aneurysm; Translations: [Abdominal aortic aneurysm (AAA) 3.0 cm to 5.5 cm in diameter in male]52-49-0346WfpvkeuTonxzgko of urinary tract (1 source)Ureteric stone; Translations: [Calculus of ureter]Onset: 10-01-2024 EpisodicCancer of bladder (20 sources)Malignant neoplasm of bladder, unspecified; Translations: [Malignant tumor of urinary bladder]Onset: 03-17-2020 Resolved: 150331-78-5501ZfhgnebAanukf of bladder (7 sources)History of malignant neoplasm of bladder; Translations: [Personal history of malignant neoplasm of bladder]Onset: 82-06-9422YllzjbavItrvqx of prostate (20 sources)Malignant neoplasm of prostate; Translations: [Malignant tumor of prostate]Onset: 77-39-2337MploenuWdvkvj; other and unspecified primary (20 sources)H/O: malignant xygdxxma39-86-3789FvycjyeqLenhqhm dysrhythmias (20 sources)Irregular heart beat; Translations: [Cardiac arrhythmia, unspecified]Onset: 123290-88-5262TwjrktbVjuigux kidney disease (20 sources)Chronic kidney disease, unspecified; Translations: [Chronic kidney disease]Onset: 03-17-2020 Resolved: 252977-85-7261AnodnocYamoytw kidney disease (20 sources)Chronic kidney disease; Translations: [Chronic kidney disease, stage III (moderate)]Onset: 01-19-2021 Resolved: 43-97-9238Gdosyiwkefr and hemorrhagic disorders (3 sources)Acquired coagulation factor inhibitor disorder; Translations: [Other hemorrhagic disorder due to intrinsic circulating anticoagulants, antibodies, or inhibitors]44-13-7307FdsinsuEzqlogwujd and other anemia (1 source)Anemia in chronic kidney disease; Translations: [Anemia in chronic kidney disease]Onset: 72-06-4283RgglkebNvqdpumuvw and other anemia (15 sources)Anemia, unspecified; Translations: [Anemia, unspecified]Onset: 11-25-2020 Resolved: 04-11-9669XwrqzkigIhbzgvhswf and other anemia (20 sources)Anemia; Translations: [Anemia, unspecified]Onset: 12-20-2023 95-49-9105KjbbkrsuCcqqdnec mellitus without complication (20 sources)Hyperglycemia, unspecified; Translations: [Prediabetes]Onset: 11-25-2020 Resolved: 07-53-4179MhpumijtVtqcalcya of lipid metabolism (20 sources)Hyperlipidemia, unspecified; Translations: [Hyperlipidemia]Onset: 03-17-2020 Resolved: 854666-67-9557MrmdnmsKzesnozayb disorders (20 sources)Gastroesophageal reflux disease; Translations: [Gastro-esophageal reflux disease without esophagitis]Onset: 08-14-2014 Resolved: 40-25-5241HrstjbmOqgcpkdjz hypertension (20 sources)Hypertensive disorder; Translations: [Essential (primary) hypertension]Onset: 11-25-2020 Resolved: 345185-78-0458JkqokrdDnvapdsdvoycf symptoms and ill-defined conditions (20 sources)Post-micturition lzusoxfpzato25-85-0736JgnrlagOqzpmmlltpcjj symptoms and ill-defined conditions (20 sources)Nocturia; Translations: [Hypercalciuria]Onset: EpisodicHyperplasia of prostate (20 sources)Benign prostatic hyperplasia with lower urinary tract symptoms; Translations: [Benign prostatic hypertrophy with outflow obstruction]Onset: 95-14-9831ZbnjvixLkbijhdrlqlr with complications and secondary hypertension (20 sources)Hypertensive chronic kidney disease with stage 1 through stage 4 chronic kidney disease, or unspecified chronic kidney disease; Translations: [Hypertensive renal disease]Onset: 03-17-2020 Resolved: 36-79-5660QhrqnsyJghzljy and fatigue (20 sources)Fatigue; Translations: [Other fatigue]Onset: 118339-17-6219 EpisodicMycoses (5 sources)Onychomycosis; Translations: [Tinea unguium]83-53-5179Gdamvpmr Neoplasms of unspecified nature or uncertain behavior (20 sources)Neoplasm of unspecified behavior of bladder; Translations: [Neoplasm of bladder]Onset: 779091-42-7638XqwhrvtfWagp wounds of extremities (20 sources)Laceration of hand; Translations: [Laceration without foreign body of left hand, initial encounter]Onset: 04-05-2021 Resolved: 51-20-1552VrrznxgfEbvj wounds of head; neck; and trunk (10 sources)Tear of skin; Translations: [Open wound(s) (multiple) of unspecified site(s), without mention of complication]76-62-7382ZqkgyremVfbecehficodog (20 sources)Unspecified osteoarthritis, unspecified site; Translations: [Arthritis]Onset: 611428-90-6092RgtvcxoZsztd aftercare (2 sources)Encounter for removal of suturesOnset: 04-12-2021 Resolved: 94-37-2583RbvdmwvuXlknt aftercare (2 sources)Other salvage determiner (current) drug therapy; Translations: [Other shelter (current) drug therapy]Onset: 50-32-5202JmiieiaaBbcjs connective tissue disease (20 sources)History of repair of hip joint; Translations: [Presence of unspecified artificial hip joint]Onset: 19-91-9320HppbaiiSufjg connective tissue disease (1 source)History of revision of right total hip arthroplasty; Translations: [Presence of right artificial hip joint]ChronicOther connective tissue disease (1 source)History of left total knee replacement; Translations: [Presence of left artificial knee joint]ChronicOther connective tissue disease (1 source)Pain in right footEpisodicOther connective tissue disease (5 sources)Pain in both feet; Translations: [Pain in right foot]03-15-2023 EpisodicOther diseases of kidney and ureters (20 sources)Secondary hyperparathyroidism; Translations: [Secondary hyperparathyroidism of renal origin]94-45-7532LwcwfgkCtnqr diseases of kidney and ureters (8 sources)Secondary hyperparathyroidism of renal origin; Translations: [Secondary hyperparathyroidism (of renal origin)]Onset: 01-19-2021 Resolved: 84-11-0410DweucokKjikq diseases of kidney and ureters (5 sources)Urinary tract obstruction; Translations: [Other obstructive and reflux uropathy]Onset: 57-01-4838RwpgulgmFydin injuries and conditions due to external causes (5 sources)Hematoma; Translations: [Other injury of unspecified body region, initial encounter]25-74-3987ZjaqqcipAirha liver diseases (11 sources)Abnormal levels of other serum enzymes; Translations: [Other nonspecific abnormal serum enzyme levels]Onset: 06-08-2021 Resolved: 90-34-0406VnvxipotIwqte liver diseases (20 sources)Alkaline phosphatase raised; Translations: [Abnormal levels of other serum enzymes]Onset: 276349-00-1042VxnpqggfFqcev lower respiratory disease (20 sources)Hemoptysis; Translations: [Hemoptysis]Onset: EpisodicOther lower respiratory disease (1 source)CoughEpisodicOther lower respiratory disease (20 sources)Dyspnea; Translations: [Shortness of breath]27-76-5659SbrbumcwQkkuj lower respiratory disease (8 sources)Shortness of breath; Translations: [Shortness of breath]06-27-2023 EpisodicOther lower respiratory disease (14 sources)Cough; Translations: [Acute cough]15-32-8564VmnbqzrmDctme lower respiratory disease (9 sources)Cough; Translations: [Cough]71-87-7478WogcxkqyPhwlw male genital disorders (20 sources)Atrophy of irfbvr96-78-8974OowizqncHscxl nervous system disorders (20 sources)Neuropathy; Translations: [Polyneuropathy, unspecified]ChronicOther nutritional; endocrine; and metabolic disorders (20 sources)Body mass index 30+ - -19-3537JztrznbGgdxl nutritional; endocrine; and metabolic disorders (10 sources)Obese class I; Translations: [Obesity, unspecified]Onset: 03-21-2023 49-32-9797SvmrqmuSulkg nutritional; endocrine; and metabolic disorders (20 sources)Hypomagnesemia; Translations: [Hypomagnesemia]Onset: 12-20-2023 15-53-3773WvledxeBtufb nutritional; endocrine; and metabolic disorders (7 sources)Hypomagnesemia; Translations: [Disorders of magnesium metabolism] 18-27-9631FgewdglGakcz nutritional; endocrine; and metabolic disorders (4 sources)Abnormal weight loss; Translations: [Abnormal weight loss]Onset: 06-08-2021 Resolved: 31-11-8537GsttyjzlRwlzr nutritional; endocrine; and metabolic disorders (6 sources)Hyperuricemia without signs of inflammatory arthritis and tophaceous disease; Translations: [Other abnormal blood chemistry]Onset: 18-58-8047Rmqershf Other nutritional; endocrine; and metabolic disorders (17 sources)Hyperuricemia; Translations: [Hyperuricemia without signs of inflammatory arthritis and tophaceous disease]52-87-5302FzyszofaOvmsj skin disorders (3 sources)Callosity; Translations: [Corns and callosities]58-77-2564Xljcrnxy Other skin disorders (1 source)Localized swelling, mass and lump, left upper limb; Translations: [Localized swelling, mass and lump, left upper limb]Onset: 59-48-9980Wsdgmpwy Residual codes; unclassified (4 sources)Pain, unspecified; Translations: [Generalized pain]Onset: 08-04-2022 50-68-6818CcamyifwEbxzdwfi codes; unclassified (10 sources)Generalized aches and pains; Translations: [Pain, unspecified] 55-95-3604DctfprpcWaraqplpogm; intervertebral disc disorders; other back problems (17 sources)Lumbar spondylosis; Translations: [Spondylosis without myelopathy or radiculopathy, lumbar region]Onset: 335062-44-4158GxscdlkLskasvvpzfw; intervertebral disc disorders; other back problems (3 sources)Spinal stenosis, lumbar region with neurogenic claudication; Translations: [Spinal stenosis of lumbar region]Onset: 175571-51-9599 EpisodicUnclassified (1 source)INFECTION OF TOTAL HIP JOINT PROSOnset: 54-75-1571Cuykbatttuzu (1 source)INFECTION OF TOTAL HIP JOINT PROSTHESIS/ SDAOnset: 03-09-2015 Unclassified (1 source)PERSONAL HISTORY OF COVID-19; Translations: [PERSONAL HISTORY OF COVID-19]Onset: 74-96-4879Dzkbesaiidqs (17 sources)Asymptomatic microscopic msglroslr95-04-4700Bicwvykszdwd (20 sources)Measurement wlatcgh69-43-5207Aytluqtdnmod (1 source)Cough, unspecified; Translations: [Cough, unspecified]Onset: 18-49-0334Cjbadxb tract infections (17 sources)Urinary tract infectious tavrjbm47-19-6389Ijwbdmpd Past or Other Problems Problem ClassificationProblemDateDocumented DateEpisodic/ChronicComplication of device; implant or graft (18 sources)Prosthetic joint infection; Translations: [Infection and inflammatory reaction due to other internal joint prosthesis, initial encounter] Onset: 306324-04-2585YmkjbgttUjqsi screening for suspected conditions (not mental disorders or infectious disease) (20 sources)Raised prostate specific antigen; Translations: [Elevated prostate specific antigen [PSA]]Onset: 11-25-2020 Resolved: 948537-26-7642AyvilibyPkvonhurquu injury; contusion (16 sources)Contusion of right foot, initial encounter; Translations: [Contusion of left knee]Onset: 79-92-5986SgfokynvOmxauiimoguy (2 sources)Lumbar pain M54.50Onset: 06-08-2021 Resolved: 48-67-7623Qcutaxuwhobu (2 sources)Cough R05.9 Results Test NameValueInterpretationReference MfhviJlmsfbkmW7L with Estimated Average Gluon 98-78-2964Kklbgjm [Mass/Vol]120 mg/dLNormSarasota [facility] Comment on above:Result Comment: PERFORMED BY: [place] [id number] PATHOLOGIST SEAL DELIV[employer] VEHICLE TEAM TECHNICIAN GEOVANNI HENSON M.D.Performed By: #### CBC, CMP, FE and TIBC, JOSSUE #### [facility] [address] [place] [address] USAAlanine aminotransferase [Enzymatic activity/volume] in Serum or PlasmaOrdered By: Juvencio Sanchez on 21-70-1775ADY [Catalytic activity/Vol]13 U/LNormal7-52Providence HospitalComment on above: Order Comment: Reason for Exam Chronic kidney disease, stage III (moderate);Warner hy kid w crPerformed By: #### PROCRERAT, ADDONUAPLUS #### [facility] [address] [place] [address] USAAlbumin [Mass/volume] in Serum or Plasma by Bromocresol green (BCG) dye binding methoOrdered By: Juvencio Sanchez on 84-31-6071Dkvnbdt BCG dye [Mass/Vol]4.0 g/dL3.5-5.7FWVUMedicine Harrison Community HospitalAlkaline phosphatase [Enzymatic activity/volume] in Serum or PlasmaOrdered By: Juvencio Sanchez on 97-37-3111MAB [Catalytic activity/Vol]122 U/ZHbqh13-121IcwvnlgotProvidence HospitalComment on above:Order Comment: Reason for Exam Chronic kidney disease, stage III (moderate);Warner hy kid w crPerformed By: #### PROCREGLORIA, ADDONUAPLUS #### [facility] [address] [place] [address] USAAppearance of UrineOrdered By: Mireya Pichardo on 11-26-2024 Appearance (U)ClearNormalClearProvidence HospitalComment on above: Order Comment: Name Collection Type:: Clean-Voided MidstreamPerformed By: #### YAHIRREGLORIA ADDONUAPLUS #### [place] [address] USAAspartate aminotransferase [Enzymatic activity/volume] in Serum or PlasmaOrdered By: Juvencio Sanchez on 04-21-4757APL [Catalytic activity/Vol]18 U/GMoftzx65-36GlcuedrdmProvidence HospitalComment on above: Order Comment: Reason for Exam Chronic kidney disease, stage III (moderate);Warner terry crPerformed By: #### CARLOS MANUEL ADDONUAPLUS #### [place] [address] USABacteria [Presence] in Urine by AutomatedOrdered By: Mireya Pichardo on 67-84-2310Yzqrkqyw Auto Ql (U)None seen [HPF]None SeenProvidence HospitalBasophils [#/volume] in Blood by Automated countOrdered By: Juvencio Sanchez on 36-89-8794Ocsemvsbe (Bld) [#/Vol]0.1 10*3/uLNormal0.0-0.2 Providence HospitalComment on above:Result Comment: PERFORMED BY: [place] [address] PATHOLOGIST SEAL DELIV[employer] VEHICLE TEAM TECHNICIAN GEOVANNI HENSON M.D.Performed By: #### LYRIC HOROWITZONUAPLUS #### [facility] [address] [place] [address] USABasophils/100 leukocytes in Blood by Automated count Ordered By: Juvencio Sanchez on 40-96-9143Lewnxrgph/100 WBC (Bld)1.0 %Normal. Providence HospitalComment on above:Performed By: #### PROCRERAT, ADDONUAPLUS #### [facility] [address] [place] [address] USABilirubin Test strip Ql (U)Ordered By: Mireya Pichardo on 96-04-3863Oovyimroc Ql (U)NegativeNegativeProvidence Hospital Bilirubin.total [Mass/volume] in Serum or PlasmaOrdered By: Juvencio Sanchez on 83-13-6006Hqdhutjkt [Mass/Vol]0.4 mg/dLNormal0.3-1.0Providence HospitalComment on above:Order Comment: Reason for Exam Chronic kidney disease, stage III (moderate);Warner hy bruce w crPerformed By: #### PROCREGLORIA ADDONUAPLUS #### [facility] [address] [place] [address] USABlood estimated average glucose determination by estimation from glycated hemoglobinOrdered By: Juvencio Sanchez on 40-78-4318Ytexpaw glucose Estimated from glycated hemoglobin (Bld) [Mass/Vol]120 mg/dLProvidence HospitalCalcium [Mass/volume] in Serum or PlasmaOrdered By: Juvencio Sanchez on 11-57-7529Iilwkje [Mass/Vol]8.8 mg/dLNormal8.6-10.3FWVUMedicine Harrison Community HospitalComment on above:Order Comment: Reason for Exam Chronic kidney disease, stage III (moderate);Warner hy kid w crPerformed By: #### YAHIRRET, ADDONUAPLUS #### [facility] [address] [place], [place] [id number] USACarbon dioxide, total [Moles/volume] in Serum or Plasma Ordered By: Juvencio Sanchez on 65-12-1962OT3 [Moles/Vol]25.9 mmol/TGwgcjl21.0-31.0 [facility] HospitalComment on above:Order Comment: Reason for Exam Chronic kidney disease, stage III (moderate);Warner hy kid w crPerformed By: #### PROCRERAT, ADDONUAPLUS #### [facility] [address] [place], [place] [address] USAChloride [Moles/volume] in Serum or PlasmaOrdered By: Juvencio Sanchez on 86-74-5295Cqgnofhn [Moles/Vol]107 mmol/SVlpato40-069XqgpvitovProvidence HospitalComment on above:Order Comment: Reason for Exam Chronic kidney disease, stage III (moderate);Warner hy kid w crPerformed By: #### LYRIC HOROWITZSKYLERMAYAPLUS #### [facility] [address] [place] [address] USACholesterol [Mass/volume] in Serum or PlasmaOrdered By: Juvencio Sanchez on 83-58-0084Tljqtezwwaj [Mass/Vol]152 mg/rYJbuway680-204BxcswyisaProvidence HospitalComment on above:Chol less than 200 mg/dl low riskChol 201-239 mg/dl borderline riskChol 240 mg/dl and greater high riskResult Comment: Chol less than 200 mg/dl low risk Chol 201-239 mg/dl borderline risk Chol 240 mg/dl and greater high riskPerformed By: #### CBC, CMP, FE and TIBC, JOSSUE #### [facility] [address] [place] [address] USACholesterol in HDL [Mass/volume] in Serum or PlasmaOrdered By: Juvencio Sanchez on 65-30-0321Kzxlazhvuts in HDL [Mass/Vol]48 mg/nIMnhxcb39-60 [facility] HospitalComment on above:HDL CHOL ATP-III CLASSIFICATION Cardiovascular RiskHDL > or equal to 60 mg/dL LOWHDL < 40 mg/dL HIGHResult Comment: HDL CHOL ATP-III CLASSIFICATION Cardiovascular Risk HDL > or equal to 60 mg/dL LOW HDL < 40 mg/dL HIGHPerformed By: #### CBC, CMP, FE and TIBC, JOSSUE #### [facility] [address] [place] [address] USACholesterol in LDL Calc [Mass/Vol]Ordered By: Juvencio Sanchez on 83-64-8000Glpsdwnqzwf in LDL [Mass/Vol]74 mg/dL0-100Providence HospitalComment on above:LDL ATP III CLASSIFICATIONLDL less than 100 mg/dL OptimalLDL 100-129 mg/dL Near or above rxlcdwiEPB105-939 mg/dL Borderline highLDL 160-189 mg/dL HighLDL greater than 189 mg/dL Very highCholesterol in VLDL Calc [Mass/Vol]Ordered By: Juvencio Sanchez on 13-40-7012Rogqxnimmfj in VLDL [Mass/Vol]30 mg/dLProvidence HospitalColor of Urine by AutoOrdered By: Mierya Pichardo on 60-95-8027Fefyp (U)YellowNormalYellowProvidence HospitalComment on above:Order Comment: Name Collection Type:: Clean- Voided MidstreamPerformed By: #### PROCREGLORIA, ADDONUAPLUS #### [facility] [address] [place] [address] USAComplete Blood Count Auto Diffon 72-95-0406Edwz Corpuscular HGB Conc33.0 g/cTOypzwj92.5-35.6The [facility] Physician GroupComment on above:Performed By: #### CARLOS MANUEL, ADDONUAPLUS #### [place] [address] USANRBC%0.1 /100{WBC}Normal0-0.5The [facility] Comment on above:Performed By: #### CARLOS MANUEL, ADDONUAPLUS #### [place] [address] USAWhite Blood Count6.8 [CFU]/mLNormal4.1-10.5The [facility] Physician GroupComment on above:Performed By: #### PROCRET, ADDONUAPLUS #### [place] [id number] USAComprehensive Metabolic Panelon 01-34-0646Qzrupmn [Mass/Vol]4.0 g/dLNormal3.5-5.7The [facility] Physician GroupComment on above: Order Comment: Reason for Exam Chronic kidney disease, stage III (moderate);Warner hy kid w crPerformed By: #### YAHIRRET, ADDONUAPLUS #### [place] [address] USAGFR/1.73 sq M.predicted MDRD (S/P/Bld) [Vol rate/Area] 53.076 mL/min/{1.73_m2}NormalThe [facility] Physician GroupComment on above:Order Comment: Reason for Exam Chronic kidney disease, stage III (moderate);Warner hy kid w crPerformed By: #### PROCRERAT, ADDONUAPLUS #### [facility] [address] [place] [address] USACreatinine [Mass/volume] in Serum or PlasmaOrdered By: Juvencio Sanchez on 46-02-6586Uldpfxhtcg [Mass/Vol]1.35 mg/dLHigh0.70-1.30Providence HospitalComment on above:Order Comment: Reason for Exam Chronic kidney disease, stage III (moderate);Warner hy kid w crPerformed By: #### PROCRERAT, ADDONUAPLUS #### [facility] [address] [place] [address] USACreatinine [Mass/volume] in UrineOrdered By: Mireya Pichardo on 12-53-7377Vjoovmownu (U) [Mass/Vol]158.00 mg/dLProvidence HospitalComment on above:No reference range establishedDipstick and Microscopicon 83-75-5464Uhorfbbw,UrineNone SeenNormalNone SeenThe [facility] Comment on above:Order Comment: Name Collection Type:: Clean-Voided Midstream Performed By: #### PROCRERAT, ADDONUAPLUS #### [facility] [address] [place] [address] USABilirubin,UrineNegativeNormalNegativeThe [facility] Physician GroupComment on above:Order Comment: Name Collection Type:: Clean- Voided MidstreamPerformed By: #### PROCRERAT, ADDONUAPLUS #### [facility] [address] [place] [address] USAGlucose Ql (U)NormalNormalNormalThe [facility] Physician GroupComment on above:Order Comment: Name Collection Type:: Clean-Voided MidstreamPerformed By: #### PROCRERAT, ADDONUAPLUS #### [facility] [address] [place] [address] USAHyaline Casts,Nqjkj7-2Dkaeaw5-3Cof [facility] Physician GroupComment on above:Order Comment: Name Collection Type:: Clean-Voided MidstreamPerformed By: #### PROCRERAT, ADDONUAPLUS #### [place] [address] USAMucus,UrineRareNormalThe [facility] Physician GroupComment on above:Order Comment: Name Collection Type:: Clean-Voided MidstreamResult Comment: PERFORMED BY: [place] [address] PATHOLOGIST SEAL DELIV[employer] VEHICLE TEAM TECHNICIAN GEOVANNI HENSON M.D.Performed By: #### PROCRERAT, ADDONUAPLUS #### [place] [address] USANitrite,UrineNegativeNormalNegativeHolmes Regional Medical Center Physician GroupComment on above:Order Comment: Name Collection Type:: Clean-Voided MidstreamPerformed By: #### PROCRERAT, ADDONUAPLUS #### [place] [address] USAOccult Blood,UrineNegativeNormalNegativeHolmes Regional Medical Center Physician GroupComment on above:Order Comment: Name Collection Type:: Clean- Voided MidstreamPerformed By: #### PROCRERAT, ADDONUAPLUS #### [place] [address] USAProtein,UrineTraceNormalNegativeThe [facility] Physician GroupComment on above:Order Comment: Name Collection Type:: Clean-Voided MidstreamPerformed By: #### PROCRERAT, ADDONUAPLUS #### [place] [address] USARBC,Gvekd1-2Dnmtgq9-6Znv [facility] Physician GroupComment on above:Order Comment: Name Collection Type:: Clean-Voided MidstreamPerformed By: #### PROCRERAT, ADDONUAPLUS #### [place] [address] USASpecificy Goldvein,Urine1.578Xaeuzs8.001-1.030The Formerly [facility]le Hospital Physician GroupComment on above:Order Comment: Name Collection Type:: Clean- Voided MidstreamPerformed By: #### PROCRERAT, ADDONUAPLUS #### [facility] [address] [place] [address] USAUrobilinogen,UrineNormalNormalNormalThe Formerly [facility] Hospital Physician GroupComment on above:Order Comment: Name Collection Type:: Clean- Voided MidstreamPerformed By: #### PROCRERAT, ADDONUAPLUS #### [facility] [address] [place] [address] USAWBC,Sezez2-8Sqhjkr1-2Ccc Formerly [facility] Hospital Physician GroupComment on above:Order Comment: Name Collection Type:: Clean-Voided MidstreamPerformed By: #### PROCRERAT, ADDONUAPLUS #### [place] [address] USAEosinophils [#/volume] in Blood by Automated countOrdered By: Juvencio Sanchez on 60-34-0519Obanztifyva (Bld) [#/Vol]0.3 10*3/uLNormal0.0-0.45 [facility] HospitalComment on above:Performed By: #### PROCRERAT, ADDONUAPLUS #### [place] [address] USAEosinophils/100 leukocytes in Blood by Automated count Ordered By: Juvencio Sanchez on 52-09-9716Vpizejezkmb/100 WBC (Bld)4.1 %Normal. [facility] HospitalComment on above:Performed By: #### PROCRERAT, ADDONUAPLUS #### [place] [address] USAEpithelial cells.squamous [#/area] in Urine sediment by Automated countOrdered By: Mireya Pichardo on 97-39-8995Aihlzbhuxj cells.squamous Auto (Urine sed) [#/Area]N/AFWVUMedicine Harrison Community HospitalErythrocyte distribution width [Ratio] by Automated countOrdered By: Juvencio Sanchez on 51-01-5546Nszjhpgkmli distribution width (RBC) [Ratio]17.2 %High12.0-14.8 [facility] HospitalComment on above:Performed By: #### PROCRERAT, ADDONUAPLUS #### [facility] [address] [id number] USAErythrocytes [#/area] in Urine sediment by Automated count Ordered By: Mireya Pichardo on 99-45-3325PXV Auto (Urine sed) [#/Area]1-2 [HPF]0-4 [facility] HospitalErythrocytes [#/volume] in Blood by Automated countOrdered By: Juvencio Sanchez on 10-56-4758UVD (Bld) [#/Vol]4.03 10*6/uLNormal 3.90-5.60[facility] HospitalComment on above:Performed By: #### RICHARD HOROWITZPLUS #### [place] [id number] USAFerritinon 95-16-1224Defrulfj [Mass/Vol]144.9 ng/mLNormal 23.9-336.2The Formerly [facility] Hospital Physician GroupComment on above:Order Comment: Reason for Exam Chronic kidney disease, stage III (moderate);[employer]ner hy kid w crPerformed By: #### CBC, CMP, FE and TIBC, JOSSUE #### [place] [id number] USAFerritin [Mass/volume] in Serum or PlasmaOrdered By: Juvnecio Sanchez on 06-29-3130Vcemvhrv [Mass/Vol]145.4 ng/qULwfbng80.9-336.2FWVUMedicine Harrison Community HospitalComment on above:Performed By: #### CBC, CMP, FE and TIBC, JOSSUE #### [place] [id number] USAGlomerular filtration rate [Volume Rate/Area] in Serum, Plasma or Blood by CreatinineOrdered By: Juvencio Sanchez on 61-39-8373Xhmucevete filtration rate [Volume Rate/Area] in Serum, Plasma or Blood by Hgwbfhqwtc09.076 mL/MinProvidence HospitalGlucose [Mass/volume] in Serum or Plasma Ordered By: Juvencio Sanchez on 05-03-7785Mucatvh [Mass/Vol]93 mg/mKOjqdmk51-780 [facility] HospitalComment on above:ADA recommended reference rangeRandom Glucose Reference Range is dependent on time and content of last meal. Glucose of more than 200 mg/dL in a nonstressed, ambulatory subject supports the diagnosisof Diabetes Mellitus.Order Comment: Reason for Exam Chronic kidney disease, stage III (moderate);Warner elijah Coyle Comment: Random Glucose Reference Range is dependent on time and content of last meal. Glucose of more than 200 mg/dL in a nonstressed, ambulatory subject supports the diagnosis of Diabetes Mellitus. ADA recommended reference rangePerformed By: #### PROCRERAT, ADDONUAPLUS #### [facility] [address] [id number] USAGlucose [Mass/volume] in Urine by Test stripOrdered By: Mireya Pichardo on 18-88-2962Lomfzuo Test strip (U) [Mass/Vol]Normal mg/dLNormal Providence HospitalHematocrit [Volume Fraction] of Blood by Automated countOrdered By: Juvencio Sanchez on 30-33-8994Jxrabrfchl (Bld) [Volume fraction]35.1 %Low38.8-50.0Providence HospitalComment on above: Performed By: #### YAHIRRET, ADDONUAPLUS #### [facility] [address] [place] [address] USAHemoglobin A1c/Hemoglobin.total in BloodOrdered By: Juvencio Sanchez on 64-61-0192QuE0d (Bld) [Mass fraction]5.8 %High4.3-5.6FWVUMedicine Harrison Community HospitalComment on above:Increased risk for diabetes: 5.7 - 6.4diabetes: >6.4glycemic control for adults with diabetes: <7.0Result Comment: Increased risk for diabetes: 5.7 - 6.4 diabetes: >6.4 glycemic control for adults with diabetes: <7.0Performed By: #### CBC, CMP, FE and TIBC, JOSSUE #### [facility] [address] [place] [address] USAHemoglobin Test strip Ql (U)Ordered By: Mireya Pichardo on 79-61-7920Htzeabpdry Ql (U)NegativeNegativeProvidence Hospital Hemoglobin [Mass/volume] in BloodOrdered By: Juvencio Sanchez on 11-26-2024 Hemoglobin (Bld) [Mass/Vol]11.6 g/dLLow13.0-17.0[facility] HospitalComment on above:Performed By: #### PROCRERAT, ADDONUAPLUS #### [facility] [address] [place] [address] USAHyaline casts [#/area] in Urine sediment by Automated countOrdered By: Mireya Pichardo on 69-97-9266Wjpvpjt casts Auto (Urine sed) [#/Area]0-8 [LPF]0-8Providence HospitalIron [Mass/volume] in Serum or PlasmaOrdered By: Juvencio Sanchez on 76-19-4244Fhgw [Mass/Vol]47 ug/wUBfl68-836 [facility] HospitalComment on above:Order Comment: Reason for Exam Chronic kidney disease, stage III (moderate);[employer] hy bruce w crPerformed By: #### PROCRERAT, ADDONUAPLUS #### [place] [address] USAIron and TIBC Profileon 11-26-2024% Iron Yydjtupauu90.2 % Lsa73-67Ame Formerly [facility] Hospital Physician GroupComment on above:Order Comment: Reason for Exam Chronic kidney disease, stage III (moderate);[employer] hy kid w crPerformed By: #### PROCRERAT, ADDONUAPLUS #### [address] [address] USATotal Iron Binding Syimqtyk443 ug/zMDxzafw933-005Tbc Formerly [facility] Hospital Physician GroupComment on above:Order Comment: Reason for Exam Chronic kidney disease, stage III (moderate);[employer] hy kid w crPerformed By: #### PROCRERAT, ADDONUAPLUS #### [place] [id number] USAKetones [Presence] in Urine by Test stripOrdered By: Mireya Pichardo on 16-57-4847Vbrijnk Ql (U)NegativeNormalNegativeProvidence HospitalComment on above:Order Comment: Name Collection Type:: Clean- Voided MidstreamPerformed By: #### PROCRERAT, ADDONUAPLUS #### [facility] [address] [place] [address] USALeukocyte esterase [Presence] in Urine by Test strip Ordered By: Mireya Pichardo on 37-70-3770Iockufzzp esterase Test strip Ql (U) NegativeNormalNegativeProvidence HospitalComment on above:Order Comment: Name Collection Type:: Clean-Voided MidstreamPerformed By: #### LYRIC HOROWITZONUAPLUS #### [facility] [address] [id number] USALeukocytes [#/area] in Urine sediment by Automated count Ordered By: Mireya Pichardo on 10-05-7477PAD Auto (Urine sed) [#/Area]1-2 [HPF]0-4 Providence HospitalLeukocytes [#/volume] corrected for nucleated erythrocytes in Blood by Automated counOrdered By: Juvencio Sanchez on 59-56-8954NIV corrected for nucl RBC Auto (Bld) [#/Vol]6.8 10*3/uL4.1-10.5FWVUMedicine Harrison Community HospitalLeukocytes [#/volume] in Blood by Automated countOrdered By: Juvencio Sanchez on 39-47-5175AVL (Bld) [#/Vol]6.8 10*3/uLNormal4.1-10.5FWVUMedicine Harrison Community HospitalComment on above:Performed By: #### HECTOR HOROWITZUAPLUS #### [facility] [address] [id number] USALipid Panelon 19-73-2415BHI Cholesterol,Jtmnlzpwbq79 mg/dL Normal0-100The Formerly [facility] Hospital Physician GroupComment on above:Result Comment: LDL ATP III CLASSIFICATION LDL less than 100 mg/dL Optimal LDL 100-129 mg/dL Near or above optimal LDL 130-159 mg/dL Borderline high LDL 160-189 mg/dL High LDL greater than 189 mg/dL Very highPerformed By: #### CBC, CMP, FE and TIBC, JOSSUE #### [facility] [address] [id number] USATriglyceride w/Lfhcbk438 mg/dLHigh0-149The Formerly [facility] Hospital Physician GroupComment on above:Result Comment: TRIG ATP III CLASSIFICATION TRIG less than 150 mg/dL Normal TRIG 150-199 mg/dL Borderline high TRIG 200-500 mg/dL High TRIG greater than 500 mg/dL Very high Standard traceable to the Center for Disease Conrtrol and Prevention (CDC) test method.Performed By: #### CBC, CMP, FE and TIBC, JOSSUE #### [facility] [address] [place] [address] USAVLDL OAOQVPJUUSI60 mg/dLNormalThWeiser Memorial Hospital Physician GroupComment on above:Performed By: #### CBC, CMP, FE and TIBC, JOSSUE #### [place] [address] USALymphocytes [#/volume] in Blood by Automated countOrdered By: Juvencio Sanchez on 78-96-7146Ljlfknbnezb (Bld) [#/Vol]0.9 10*3/uLLow1.00-4.8 [facility] HospitalComment on above:Performed By: #### PROCRELYRIC CASTROONUAPLUS #### [place] [address] USALymphocytes/100 leukocytes in Blood by Automated count Ordered By: Juvencio Sanchez on 25-46-0562Hhbtsoezolb/100 WBC (Bld)13.7 %Normal. [facility] HospitalComment on above:Performed By: #### LYRIC HOROWITZONUAPLUS #### [address] [Entitic mass] by Automated countOrdered By: Juvencio Sanchez on 21-04-3659VZA (RBC) [Entitic mass]28.8 tfVwspts34.5-35.2FWVUMedicine Harrison Community HospitalComment on above:Performed By: #### LYRIC HOROWITZONUAPLUS #### [address] Auto (RBC) [Mass/Vol]Ordered By: Juvencio Sanchez on 81-91-9160UPBI (RBC) [Mass/Vol]33.0 g/dL32.5-35.6FWVUMedicine Harrison Community HospitalMCV [Entitic volume] by Automated countOrdered By: Juvencio Sanchez on 12-45-5398UAZ (RBC) [Entitic vol]87.2 fUNfuqlr81.5-101Prov[facility] HospitalComment on above:Performed By: #### LYRIC HOROWITZONUAPLUS #### [facility] [address] [place] [address] USAMagnesium [Mass/volume] in Serum or PlasmaOrdered By: Mireya Pichardo on 47-50-5155Yzcsysffl [Mass/Vol]1.9 mg/dLNormal1.9-2.7FWVUMedicine Harrison Community HospitalComment on above:Order Comment: Reason for Exam Chronic kidney disease, stage III (moderate);[employer] hy kid w crPerformed By: #### CBC, CMP, FE and TIBC, JOSSUE #### [facility] [address] [place] [address] USAMonocytes [#/volume] in Blood by Automated countOrdered By: Juvencio Sanchez on 97-37-5513Qlhhzxrdr (Bld) [#/Vol]0.7 10*3/uLNormal0.0-0.8 [facility] HospitalComment on above:Performed By: #### RICHARD HOROWITZPLUS #### [facility] [address] [place] [address] USAMonocytes/100 leukocytes in Blood by Automated count Ordered By: Juvencio Sanchez on 47-82-9773Jvwswjwoo/100 WBC (Bld)10.3 %Normal. [facility] HospitalComment on above:Performed By: #### HECTOR HOROWITZUAPLUS #### [facility] [address] [place] [address] USAMucus [Presence] in Urine by AutomatedOrdered By: Mireya Pichardo on 70-48-0044Lqfry Auto Ql (U)Rare [LPF][facility] Neutrophils [#/volume] in Blood by Automated countOrdered By: Juvencio Sanchez on 64-95-7119Nhziqwpsofm (Bld) [#/Vol]4.8 10*3/uLNormal1.8-7.7FWVUMedicine Harrison Community HospitalComment on above:Performed By: #### RICHARD HOROWITZPLUS #### [facility] [address] [place] [address] USANeutrophils/100 leukocytes in Blood by Automated count Ordered By: Juvencio Sanchez on 68-27-4129Vlzauiyuska/100 WBC (Bld)70.9 %Normal. [facility] HospitalComment on above:Performed By: #### RICHARD HOROWITZPLUS #### [facility] [address] [place] [address] USANitrite Test strip Ql (U)Ordered By: Mireya Pichardo on 95-91-3238Gwpisjk Ql (U)NegativeNegativeProvidence HospitalNo Panel InformationOrdered By: Juvencio Sanchez on 14-58-8914Acequtdf Creatinine Clearance (ChemN/AFWVUMedicine Harrison Community HospitalNucleated erythrocytes [Presence] in Blood by Automated countOrdered By: Juvencio Sanchez on 11-26-2024 Nucleated RBC Auto Ql (Bld)0.1 /100{WBC}0-0.5FWVUMedicine Harrison Community Hospital Parathyrin.intact [Mass/volume] in Serum or PlasmaOrdered By: Mireya Pichardo on 90-14-7394Ykeyhpnsac.intact [Mass/Vol]68.5 pg/tH84-95DbwuymzrcProvidence HospitalParathyroid Hormone Intacton 40-60-1947Itjgkocbrer Hormone Stnhmz19.5 pg/sMLvkyku55-08Kji Formerly [facility] Hospital Physician GroupComment on above:Result Comment: PERFORMED BY: [place] [address] PATHOLOGIST SEAL DELIVERY VEHICLE TEAM TECHNICIAN GEOVANNI HENSON M.D.Performed By: #### CBC, CMP, FE and TIBC, JOSSUE #### [facility] [address] [place], [place] [address] USAPhosphate [Mass/volume] in Serum or PlasmaOrdered By: Mireya Pichardo on 58-56-9657Bwgctghkg [Mass/Vol]3.6 mg/dLNormal2.5-4.5FWVUMedicine Harrison Community HospitalComment on above:Order Comment: Reason for Exam Chronic kidney disease, stage III (moderate);[employer] hy kid w crPerformed By: #### CBC, CMP, FE and TIBC, JOSSUE #### [facility] [address] [place] [address] USAPlatelet mean volume [Entitic volume] in Blood by Automated countOrdered By: Juvencio Sanchez on 51-27-1522Lrueqpco mean volume (Bld) [Entitic vol]8.9 fLNormal6.6-10.1FWVUMedicine Harrison Community HospitalComment on above:Performed By: #### YAHIRREGLORIA ADDONUAPLUS #### [place] [address] USAPlatelets [#/volume] in Blood by Automated countOrdered By: Juvencio Sanchez on 12-61-5915Qdddrsqal (Bld) [#/Vol]204 10*3/mQMfbsva486-118 [facility] HospitalComment on above:Performed By: #### LYRIC HOROWIZTONUAPLUS #### [place] [address] USAPotassium [Moles/volume] in Serum or PlasmaOrdered By: Juvencio Sanchez on 32-47-1516Hzzckxbfs [Moles/Vol]4.5 mmol/LNormal3.5-5.1FWVUMedicine Harrison Community HospitalComment on above:Order Comment: Reason for Exam Chronic kidney disease, stage III (moderate);[employer] hy bruce w crPerformed By: #### LYRIC HOROWITZONUAPLUS #### [place] [address] USAProtein Creat Ratio Ur Randomon 59-34-8276Yjzqcidsjl, Urine (Random)158.00 mg/dLNormPremier Health Miami Valley Hospitale Formerly [facility] Hospital Physician GroupComment on above: Result Comment: No reference range establishedPerformed By: #### LYRIC HOROWITZONUAPLUS #### [place] [address] USAUrine Protein/Creatinine Gogrq966 mg/g{Cre}High0-200The Formerly [facility] Hospital Physician GroupComment on above:Result Comment: PERFORMED BY: [place] [id number] PATHOLOGIST SEAL DELIVERY VEHICLE TEAM TECHNICIAN GEOVANNI HENSON M.D.Performed By: #### PROCREGLORIA ADDONUAPLUS #### [facility] [address] [place] [address] USAProtein Test strip (U) [Mass/Vol]Ordered By: Mireya Marino on 59-95-1248Nrvtpkn (U) [Mass/Vol]Trace mg/dLHighNegativeProvidence HospitalProtein [Mass/volume] in Serum or PlasmaOrdered By: Juvencio Sanchez on 78-85-0932Umltdki [Mass/Vol]6.3 g/dLLow6.4-8.9Prov[facility] HospitalComment on above:Order Comment: Reason for Exam Chronic kidney disease, stage III (moderate);[employer] hy kid w crPerformed By: #### PROCREGLORIA, ADDONUAPLUS #### [facility] [address] [place] [address] USAProtein [Mass/volume] in UrineOrdered By: Mireya Marino on 87-97-5708Lghwjya (U) [Mass/Vol]34 mg/dLHigh0-9[facility] Comment on above:Performed By: #### LYRIC HOROWITZONUAPLUS #### [place] [address] USASerum globulin measurement by calculation (mass/volume) Ordered By: Juvencio Sanchez on 97-38-9184Wgxxyxaa (S) [Mass/Vol]2.3 g/dLNormal [facility] HospitalComment on above:Order Comment: Reason for Exam Chronic kidney disease, stage III (moderate);[employer] hy kid w crPerformed By: #### PROCRERAT, ADDONUAPLUS #### [facility] [address] [place], [place] [address] USASerum or plasma albumin/globulin mass ratioOrdered By: Juvencio Sanchez on 79-39-8119Sreyceo/Globulin [Mass ratio]1.7 {ratio}Normal [facility] HospitalComment on above:Order Comment: Reason for Exam Chronic kidney disease, stage III (moderate);[employer] hy kid w crPerformed By: #### PROCRERAT ADDONUAPLUS #### [facility] [address] [place] [address] USASerum or plasma anion gap determinationOrdered By: Juvencio Sanchez on 80-89-1279Ypqpy gap [Moles/Vol]10.6 mmol/LNormal6.0-15.0Prov[facility] HospitalComment on above:Order Comment: Reason for Exam Chronic kidney disease, stage III (moderate);[employer]ner barrera w crPerformed By: #### HECTOR HOROWITZUAPLUS #### [facility] [address] [place] [id number] USASerum or plasma iron binding capacity measurement (mass/volume)Ordered By: Juvencio Sanchez on 84-36-7398Oevl binding capacity [Mass/Vol]274 ug/sA416-237WsxiqjupkOur Lady of Mercy Hospital - Andersonerum or plasma iron saturation measurement (mass fraction)Ordered By: Juvencio Sanchez on 63-63-6633Usuw saturation [Mass fraction]17.2 %Wmq27-45BvmqgxgmzOur Lady of Mercy Hospital - Andersonerum or plasma total cholesterol/high density lipoprotein (HDL) cholesterol mass rat Ordered By: Juvencio Sanchez on 91-13-7278Iigexlxzrdt.total/Cholesterol in HDL [Mass ratio]3.2 {ratio}Normal<5.0Providence HospitalComment on above: Performed By: #### CBC, CMP, FE and TIBC, JOSSUE #### [facility] [address] [place], [place] [address] USASodium [Moles/volume] in Serum or PlasmaOrdered By: Juvencio Sanchez on 89-47-5507Rhzcir [Moles/Vol]139 mmol/EDydoto115-489WegixjbtfProvidence HospitalComment on above:Order Comment: Reason for Exam Chronic kidney disease, stage III (moderate);[employer] barrera w crPerformed By: #### HECTOR HOROWITZUAPLUS #### [facility] [address] [id number] USASpecific gravity Test strip (U) [Rel density]Ordered By: Mireya Pichardo on 71-38-2106Tkewdsbw gravity (U) [Rel density]1.0271.001-1.030 Providence HospitalThyrotropin [Units/volume] in Serum or Plasma Ordered By: Juvencio Sanchez on 56-53-9649PZW Qn6.97 m[IU]/LHigh0.45-5.33Prov[facility] HospitalComment on above:Result Comment: PERFORMED BY: [place] [address] PATHOLOGIST SEAL DELIVERY VEHICLE TEAM TECHNICIAN GEOVANNI HENSON M.D.Performed By: #### CBC, CMP, FE and TIBC, JOSSUE #### [facility] [address] [place] [address] USATransferrin [Mass/volume] in Serum or PlasmaOrdered By: Juvencio Sanchez on 51-19-2040Abxwrjfvbjf [Mass/Vol]196 mg/oRWfx843-089UvzsblshiProvidence HospitalComment on above:Order Comment: Reason for Exam Chronic kidney disease, stage III (moderate);[employer]ner terry crResult Comment: PERFORMED BY: [place] [address] PATHOLOGIST SEAL DELIVERY VEHICLE TEAM TECHNICIAN GEOVANNI HENSON M.D.Performed By: #### PROCRERAT, ADDONUAPLUS #### [facility] [address] [place] [address] USATriglyceride [Mass/volume] in Serum or PlasmaOrdered By: Juvencio Sanchez on 98-71-7393Attailbztruh [Mass/Vol]152 mg/dLHigh0-149Providence HospitalComment on above:TRIG ATP III CLASSIFICATIONTRIG less than 150 mg/dL NormalTRIG 150-199 mg/dL Borderline highTRIG 200-500 mg/dL High TRIG greater than 500 mg/dL Very highStandard traceable to the Center for Disease Conrtrol and Prevention (CDC) test method.Urate [Mass/volume] in Serum or PlasmaOrdered By: Mireya Pichardo on 70-09-4571Ofnuu [Mass/Vol]6.8 mg/dLNormal 4.4-7.6FWVUMedicine Harrison Community HospitalComment on above:Order Comment: Reason for Exam Chronic kidney disease, stage III (moderate);[employer] terry crPerformed By: #### CBC, CMP, FE and TIBC, JOSSUE #### [facility] [address] [place] [address] USAUrea nitrogen [Mass/volume] in Serum or PlasmaOrdered By: Juvencio Sanchez on 32-33-2915Uxpe nitrogen [Mass/Vol]28 mg/dLHigh7-25Providence HospitalComment on above:Order Comment: Reason for Exam Chronic kidney disease, stage III (moderate);[employer] terry crPerformed By: #### PROCRERAT, ADDONUAPLUS #### [facility] [address] [place] [address] USAUrine protein/creatinine ratioOrdered By: Mireya Edmondsondir on 55-96-2996Gzijlba/Creatinine (U) [Ratio]215 mg/g{Cre}High0-200Providence HospitalUrobilinogen Test strip (U) [Mass/Vol]Ordered By: Mireya Edmondsondir on 78-10-5052Blrnsbbwiifm (U) [Mass/Vol]Normal mg/dLNormalProvidence HospitalVitamin D 25 Hydroxy Totalon 33-18-4062Asnatsc D 25 Hydroxy Total 40.1 ng/zRHowxuc82-978Apo Formerly [facility] Hospital Physician GroupComment on above:Order Comment: Reason for Exam Chronic kidney disease, stage III (moderate);Warner elijah bruce terry crResult Comment: VITAMIN D STATUS 25(OH)VITAMIN D RANGE (ng/mL) Deficient <20 Insufficient 20 to <30 Sufficient 30 to 100 Reference: Carmel MF,Daniela NC, Anastasiia CONLEY, et al. Evaluation,treatment, and prevention of vitamin D deficiency; an Endocrine Society clinical practice guideline. JCEM. 2010; 96(7):1911-30. PERFORMED BY: [facility] [address] [place] [address] PATHOLOGIST SEAL DELIVERY VEHICLE TEAM TECHNICIAN GEOVANNI HENSON M.D.Performed By: #### CBC, CMP, FE and TIBC, JOSSUE #### [facility] [address] [place] [address] USAVitamin D+Metabolites [Mass/volume] in Serum or Plasma Ordered By: Mireya Marino on 47-01-3040Qsnnrtm D+Metabolites [Mass/Vol]40.1 ng/mL 30-100Providence HospitalComment on above:VITAMIN D STATUS 25(OH)VITAMIN D RANGE (ng/mL) Deficient <20 Insufficient 20 to <83Weuuflrwyz76 to 100Reference: Carmel MF,Daniela TINAJERO, Anastasiia CONLEY, et al. Evaluation,treatment, and prevention of vitamin D deficiency; an Endocrine Society clinical practice guideline. JCEM. 2010; 96(7):1911-30.pH of Urine by Test stripOrdered By: Mireya Pichardo on 48-55-0992rJ (U)5.5 [pH]Normal5.0-9.0 [facility] HospitalComment on above:Order Comment: Name Collection Type:: Clean-Voided MidstreamPerformed By: #### EMERALD HOROWITZ #### [facility] [address] [place], [place] [address] USAFecal occult blood detection by immunochemistryOrdered By: Juvencio Sanchez on 81-46-6971Huvwolluxg.gastrointestinal Ql (Stl)[facility] - Andersontool Occult Blood (Immuno)on 53-39-8631Rcbsc Occult Blood (Immuno)Occult Blood (Immuno) Positive for Occult Blood by Immunochemical Methodology Reference range = Negative PERFORMED BY: [place] [address] PATHOLOGIST SEAL DELIVERY VEHICLE TEAM TECHNICIAN GEOVANNI HENSON M.D.NormalThe Formerly [facility] Hospital Physician GroupComment on above: Performed By: #### CBC, CMP, FE and TIBC, JOSSUE #### [facility] [address] [place] [address] USAFPG ECG *CARDIOLOGY ONLY*on 92-05-5254LWI ECG *CARDIOLOGY ONLY*[facility] [place] [address] [place] [address] Electrocardiograph Report Signed Patient: Indiana Hines MR#: [id number] [birth year] : 1945 Acct:[id number] Age/Sex: 79 / M ADM Date: 11/07/24 Loc: EKGCARDIO Room: Type: [facility] Attending Dr: Radha Ames MD Ordering Provider: Radha Ames MD Date of Service: 11/07/2404/02/1252 ECG/FPG ECG *CARDIOLOGY ONLY*: I48.91 - Unspecified atrial fibrillation Copies to: Test Reason : Blood Pressure : */* mmHG Vent. Rate : 49 BPM Atrial Rate : 49 BPM P-R Int : 212 ms QRS Dur : 86 ms QT Int : 486 ms P-R-T Axes : 69 -4 45 degrees QTcB Int : 439 ms Sinus bradycardia with 1st degree AV block Low voltage QRS Borderline ECG Confirmed by Radha Ames ([id number]) on 11/08/2024 10:41:11 PM Referred By: Electronically Signed By: Radha Ames Transcribed By: MUS Signed By Radha Ames MD [address] [place] [address] Physician GroupUroVysion Fish and Urine Cyto ([facility]) on 16-88-8282HMPGWI & UCDiagnosis InfoInvalid Interpretation CodeFisher Brandenburg CenterComment on above:Result Comment: A:Urine,Urine:Bladder Wash Diagnosis Summary - Adequate cellularity for evaluation. Diagnosis Summary - The [facility] FISH study detected normal copy numbers for chromosomes 3, 7, 17,and 9p21. 162 cells were analyzed in this evaluation. No evidence of aneuploidy for chromosomes 3, 7, or 17 or deletion of the 9p21 locus was found in cells present in this specimen. This test does not rule out the possibility of a low grade non-invasive papillary urothelial carcinoma. These findings should be correlated with cytology and cystoscopy results. * CPT: 13056, 39263. Microscopic Notes - Microscopic Notes - Abnormal cells 9p21 deletions: Abnormal cells aneploid events: Total cells analyzed: 162 Hematuria: Gross Description Site ID:A color Yellow fixative Alcohol Received 100 mls of clear yellow fluid with the patient's name and, Urine on the vial. Electronically signed by : on: 10/08/2024 13:37:47Performed By: #### [id number] #### [facility] [address] [place] [id number] Visit Summaryon [id number] Visit Summary Ambulatory Visit Summary [place] H[place] :1945 Visit Date:10/01/2024 Ambulatory Visit Instructions Your Diagnosis History of bladder cancer Prostate cancer BPH with urinary obstruction Ureteral stone Your Care Team Attending Physician - Akbar TORRES MD Primary Care Physician - Juvencio Sanchez DO This Is Your Medications List ciprofloxacin (Cipro 500 mg Tab) finasteride (finasteride 5 mg Tab) tamsulosin (Flomax 0.4 mg Cap) tolterodine (tolterodine 4 mg Cap-ER) Contact prescribing physician if questions or concerns Non-Formulary Medication (Iron) acetaminophen (Tylenol) acetaminophen-diphenhydrAMINE (Tylenol PM) amlodipine (amLODIPine 5 mg Tab) lisinopril (lisinopril 5 mg Tab) minocycline (minocycline 100 mg oral tablet) multivitamin (Multi Vitamins oral tablet) omeprazole rosuvastatin (rosuvastatin 10 mg Tab) ubiquinone (CoQ10) Procedures Performed Cystoscope (10/01/2024), Cystoscopy (03/27/2024), Cystoscopy (03/15/2023), Cystoscopy (09/07/2022),Cystoscopy (03/09/2022), Cystoscopy (12/08/2021), Cystoscopy (09/15/2021), Cystoscopy (03/17/2021),Cystoscopy and biopsy of bladder lesion using rigid cystoscope (12/01/2020), Cystoscopy (11/10/2020), Cystoscopy (08/12/2020), TURBT - Transurethral resection of bladder tumor (04/08/2020), Cystoscopy (03/09/2020), Transrectal biopsy of prostate using ultrasound (US) guidance (12/17/2019), Bilateral replacement of knee joints, Colonoscopy, Hip replacement, Procedure on back, Tonsillectomy. Discharge Vitals Heart Rate (Peripheral) 81 Blood Pressure 135/77 Height 184 cm Height 72 in Weight 109.7 kg Weight 241.847 lb BMI 32.4 What to do next You Need to Schedule the Following Appointments Follow Up with MELISSA THORNTON, Akbar Bassett, URL When: Where: [facility] [address] , [place] [address]- Medications What How Much When Instructions Unchanged ciprofloxacin (Cipro 500 mg Tab) 1 Tablets By Mouth Every day Take 1 tablet the day before the procedure and 1 tablet after the procedure Unchanged finasteride (finasteride 5 mg Tab) 1 Tablets By Mouth Every day Unchanged tamsulosin (Flomax 0.4 mg Cap) 1 Capsules By Mouth Every day Duration: 30 Days Stop taking if experiences dizziness or lightheadedness. Unchanged tolterodine (tolterodine 4 mg Cap-ER) 1 Capsules By Mouth Every day Unchanged acetaminophen (Tylenol) By Mouth Contact prescribing physician if questions or concerns Unchanged acetaminophen-diphenhydrAMINE (Tylenol PM) By Mouth Once a day (at bedtime) Contact prescribing physician if questions or concerns Unchanged amlodipine (amLODIPine 5 mg Tab) 1 Tablets By Mouth Every day Contact prescribing physician if questions or concerns Unchanged lisinopril (lisinopril 5 mg Tab) 1 Tablets By Mouth Every day Contact prescribing physician if questions or concerns Unchanged minocycline (minocycline 100 mg oral tablet) 1 Tablets By Mouth Every day Contact prescribing physician if questions or concerns Unchanged multivitamin (Multi Vitamins oral tablet) 1 Tablets By Mouth Every day Contact prescribing physician if questions or concerns Unchanged Non-Formulary Medication (Iron) Contact prescribing physician if questions or concerns Unchanged omeprazole By Mouth Every day Contact prescribing physician if questions or concerns Unchanged rosuvastatin (rosuvastatin 10 mg Tab) 1 Tablets By Mouth Every day Contact prescribing physician if questions or concerns Unchanged ubiquinone (CoQ10) 200 Milligram By Mouth Every day Contact prescribing physician if questions or concerns Medications and Immunizations Administered Given lidocaine Top 2% Gel w/Appl 6 mL, 6 mL, Topical. For: History of bladder cancer, Prostate cancer, BPH with urinary obstruction, Ureteral stone Allergies nafcillin (Unknown) Problems Ongoing - Any problem that you are currently receiving treatment for. Arthritis BMI 34.0-34.9,adult BPH with urinary obstruction CKD (chronic kidney disease) History of bladder cancer Hyperlipidemia Hypertension Incomplete bladder emptying Nocturia Prostate cancer Testicular atrophy Historical - Any problem that you are no longer receiving treatment for. Hypercalciuria Patient Survey You may receive a survey via text or e-mail asking about your office visit. Please share your experience with us by completing your survey. We appreciate your feedback and thank you for choosing us for your care. Education Materials Cancer Screening for Males A cancer screening is a test or exam that checks for cancer. Work with your health care provider tocreate a cancer screening schedule that protects your health. Who should have screening? All people who are male should be considered for screening of certain cancers, including colorectalcancer, prostate cancer, lung cancer, and skin cancer. Your health care provider may recommend screenings for other types of ca (more content not included)...[facility] SystemRemind[facility]2024 RemindersReminders From: Nevaeh Arias To: EU - Recalls Torres; Sent: 08/15/2024 14:00:50 EDT Show up: 01/06/2025 14:00:00 EST Subject: cysto/fish/cytol Due Date/Time: 02/03/2025 14:00:00 EST Reminder/Recall Patient is due in Mar 2025 for 6 month cysto/fish/cytol, bt ck Patient is 10 month cysto/fish/cytol, PSA due in July 2025[facility] SystemUroVysion Fish and Urine Cyto ([facility])on 82-94-0288LYNN Method of ExtractionBladder WashOhio State Health SystemComment on above: Performed By: #### [id number] #### [facility] [address] [place], [place] [address]JZEW Number of Cbww1Cvizsqe Interpretation CodeTuscarawas HospitalComment on above:Performed By: #### [id number] #### [facility] [address] [place], [place] [address]WNUF SpecimenUrineOhio State Health SystemComment on above:Performed By: #### [id number] #### [facility] [address] [place], [place] [address]NGOJ Type of ServiceTechnical OnlyOhio State Health SystemComment on above:Performed By: #### [id number] #### [facility] [address] [place], [place] [address]Huyevbv Office/Clinic Noteon [id number] Office/Clinic NoteUrology Office/Clinic Note Chief Complaint Cysto HPI Staff 79 year old male here for Cysto, fish/cytol, check PSA 0.5 09/06/24 History of Present Illness Tests reviewed: PSA I have reviewed the previous health record information and history for this patient from Dr. Torres. I have reviewed and verified the staff HPI to be accurate for this encounter. Review of Systems PHQ Score Initial Depression Screen Score: 0 SCORE ROS - Provider Constitutional: denies weight loss, denies hot flashes. Eyes: denies eye problems. Gastrointestinal: denies nausea, denies vomiting. Cardiovascular: denies chest pain or angina. Integumentary: no dryness Musculoskeletal: denies musculoskeletal symptoms. ENMT: denies otolaryngeal symptoms. Respiratory: no shortness of breath. Heme/Lymph: denies easy bleeding tendency, denies easy bruising tendency. Psychiatric: no confusion, no anxiety. Genitourinary: See HPI. Physical Exam Vitals & Measurements HR: 81(Peripheral) BP: 135/77 HT: 72 in HT: 184 cm WT: 241.847 lb WT: 109.7 kg BMI: 32.4 General Appearance: alert, no distress, well nourished, well developed adult. Procedure Operative Information Anesthesia Type: Local Procedure: Local Cystoscopy Complications: None Surgical risks, benefits, details of the procedure have been explained to the patient. Full informed consent has been obtained. Intraoperative Information Prepped: Patient is brought back to the endoscopy suite. Patient is placed in supine position. Patient prepped in the usual fashion with Betadine solution. 2% Xylocaine Jelly is placed per Urethra. After waiting several minutes, the Cystoscope is introduced. The Urethra is: Normal The Prostatic Urethra is: Bilobar obstruction The Bladder: No tumors or stones, Trabeculated: Severe (3) with open diverticuli formation. The Ureteral orifices: R Shows efflux of clear urine, small stone from the L UO. Pt is nothaving any pain or fevers. Specimens Removed: Bladder wash sent for FISH and Cytology test Removal: Cystoscope is removed. The patient tolerated it well. Postoperative Information Patient is discharged home with antibiotic coverage. Follow up arranged. Assessment/Plan 1. History of bladder cancer (Z85.51: Personal history of malignant neoplasm of bladder) Original TURBT by Dr. Juares 03/11/20 - High grade papillary urothelial neoplasm, noninvasive. A small fragment of detrusor muscles is present and neg. G3 TA TCC. TURBT, mitomycin instillation by Dr. Juares 04/08/20 - Neg for malignancy. Bladder mucosa with acuteinflammation and increased eosinophils. Detrusor muscle is present. BCG #6/6 (full doses) 10/14/20. Cysto, bladder bx, fulguration of tumor base, resection of tumors x 3 12/01/20 - Polypoid urothelial mucosa with focal reactive hyperplasia. No dysplasia or malignancy id'd. Path report from 03/11/21 showed right bladder wall tumor, high grade papillary urothelial neoplasm, noninvasive. (? confirm what this is from) FISH 03/17/21 - Positive. BCG #3/3 (full doses) 10/20/21. BCG #3/3 (half doses) 10/05/22. Last cysto 09/19/23. FISH neg. BCG #3/3 (half doses) 12/11/23. Pt had IO cysto to check for bladder tumor recurrence without complications today. Pt took prophylactic abx prior to procedure. Will send bladder wash specimen for FISH/cytol and call pt if positive. Follow up 10 mos surveillance cysto/bt ck/FISH/cytol or sooner if needed. Pt understands and agreeswith plan. 2. Prostate cancer (C61: Malignant neoplasm of prostate) ACTIVE SURVEILLENCE PSA: 06/13/20 - 1.98 06/02/21 - 2.71 08/31/22 - 2.40 & 21% 03/07/23 - 2.30 09/06/24 - 0.50 Prostate MRI 01/2020, PI - RADS II. TRUS/bx 12/17/19 - G6 (3+3) x 1 core (LLB), 6% of core involved by tumor. PSA decreased. Will cont to monitor and cont . -Cont 3. BPH with urinary obstruction (N40.1: Benign prostatic hyperplasia with lower urinary tract symptoms) Started Flomax 0.4 mg qd at prior visit. 4. Ureteral stone (N20.1: Calculus of ureter) See procedure section. Pt is not having any pain. if no passage will check kub in 3 months. Follow-up With When Contact Information MELISSA THORNTON, Akbar Bassett, URL [facility] [address] [place] [address]- Additional Instructions: 10 mos surveillance cysto/bt ck/FISH/cytol Patient Education Cancer Screening for Males I, Kathie Varela, personally scribed for Dr. Torres on 10/01/2024 08:24:31. . Documentation recorded by the scribe, Kathie Varela, accurately reflects the services(s) I performed and decisions made by me. Authenticated by Dr. Torres on 10/01/2024 08:26:26. Problem List/Past Medical History Ongoing Arthritis BMI 34.0-34.9,adult BPH with urinary obstruction CKD (chronic kidney disease) History of bladder cancer Hyperlipidemia Hypertension Incomplete bladder emptying Nocturia Prostate cancer Kandi (more content not included)...[facility] State Health SystemComment on above:Result Comment: Electronically Signed By: Akbar TORRES MD\.br\Date and Time Signed: 10/01/24 08:26 EDT\.br\Electronically Co-Signed By: Kathie Varela\.br\Date and Time Co-Signed: 10/01/24 08:24 EDTAlanine aminotransferase [Enzymatic activity/volume] in Serum or PlasmaOrdered By: Altaf Das on 47-31-7759WNZ [Catalytic activity/Vol]14 U/LNormal7-52Providence HospitalComment on above:Order Comment: NONFASTING.JKWPerformed By: #### SPE, TARIK SERUM, KAPPA #### [facility] , #### CMP, CBC #### [facility] [address] [id number] USAAlbumin [Mass/volume] in Serum or Plasma by Bromocresol green (BCG) dye binding methoOrdered By: Altaf Das on 32-77-6924Bmvadfk BCG dye [Mass/Vol]3.9 g/dL3.5-5.7FWVUMedicine Harrison Community HospitalAlkaline phosphatase [Enzymatic activity/volume] in Serum or PlasmaOrdered By: Altaf Yun on 93-37-4383AHC [Catalytic activity/Vol]129 U/FMwkb73-084XvgtczsnuProvidence HospitalComment on above:Order Comment: NONFASTING.JKWPerformed By: #### SPE, TARIK SERUM, KAPPA #### [facility] , #### CMP, CBC #### [facility] [address] [place] [address] USAAspartate aminotransferase [Enzymatic activity/volume] in Serum or PlasmaOrdered By: Altfa Das on 63-79-5790ZHP [Catalytic activity/Vol]16 U/OHjkweg68-07JomgpuhizProvidence HospitalComment on above: Order Comment: NONFASTING.JKWPerformed By: #### SPE, TARKI SERUM, KAPPA #### [facility] , #### CMP, CBC #### [place] [address] USABasophils [#/volume] in Blood by Automated countOrdered By: Altaf Das on 43-65-2088Fvcmxikov (Bld) [#/Vol]0.0 10*3/uLNormal0.0-0.2 [facility] HospitalComment on above:Result Comment: PERFORMED BY: [place] [address] PATHOLOGIST SEAL DELIVERY VEHICLE TEAM TECHNICIAN GEOVANNI HENSON M.D.Performed By: #### SPE, TARIK SERUM, KAPPA #### [facility] , #### CMP, CBC #### [facility] [address] [place] [address] USABasophils/100 leukocytes in Blood by Automated count Ordered By: Altaf Das on 81-19-9047Fjmlplmza/100 WBC (Bld)0.7 %Normal. [facility] HospitalComment on above:Performed By: #### SPE, TARIK SERUM, KAPPA #### [facility] , #### CMP, CBC #### [facility] [address] [place] [address] USABilirubin.total [Mass/volume] in Serum or PlasmaOrdered By: [facility] Juan Luisnicolas on 25-31-6881Botnpbwph [Mass/Vol]0.4 mg/dLNormal0.3-1.0 [facility] HospitalComment on above:Order Comment: NONFASTING.JKW Performed By: #### SPE, TARIK SERUM, KAPPA #### [facility] , #### CMP, CBC #### [facility] [address] [id number] USACalcium [Mass/volume] in Serum or PlasmaOrdered By: [facility] Juan Luisnicolas on 87-78-4464Nmecyui [Mass/Vol]9.0 mg/dLNormal8.6-10.3FWVUMedicine Harrison Community HospitalComment on above:Order Comment: NONFASTING.JKWPerformed By: #### SPE, TARIK SERUM, KAPPA #### [facility] , #### CMP, CBC #### [place] [address] USACarbon dioxide, total [Moles/volume] in Serum or Plasma Ordered By: dexter KirkDajaAracelinicolas on 10-42-0428BV4 [Moles/Vol]25.9 mmol/LNormal 21.0-31.0Prov[facility] HospitalComascension river district hospital on above:Order Comment: NONFASTING.JKWPerformed By: #### SPE, TARIK SERUM, KAPPA #### [facility] , #### CMP, CBC #### [place] [id number] USAChloride [Moles/volume] in Serum or PlasmaOrdered By: [facility] Juan Luisnicolas on 86-43-0519Lxdsxxmw [Moles/Vol]106 mmol/OTsznzm72-702EabqiocyaAdena Pike Medical Center on above:Order Comment: NONFASTING.JKWPerformed By: #### SPE, TARIK SERUM, KAPPA #### [facility] , #### CMP, CBC #### [facility] [address] [id number] USAComplete Blood Count Auto Diffon 93-26-7042Yujg Corpuscular HGB Conc32.5 g/vTBradqd85.5-35.6The [facility] Physician GroupComment on above:Performed By: #### SPE, TARIK SERUM, KAPPA #### [facility] , #### CMP, CBC #### [place] [address] USANRBC%0.0 /100{WBC}Normal0-0.5The [facility] Comment on above:Performed By: #### SPE, TARIK SERUM, KAPPA #### [facility] , #### CMP, CBC #### [place] [address] USAWhite Blood Count6.9 [CFU]/mLNormal4.1-10.5The [facility] Physician [facility] General HospitalComment on above:Performed By: #### SPE, TARIK SERUM, KAPPA #### [facility] , #### CMP, CBC #### [place] [address] USAComprehensive Metabolic Panelon 72-66-2859Xyjygzs [Mass/Vol]3.9 g/dLNormal3.5-5.7The Former[facility] Physician GroupComment on above: Order Comment: NONFASTING.JKWPerformed By: #### SPE, TARIK SERUM, KAPPA #### [facility] , #### CMP, CBC #### [place] [address] USACreatinine Clr Calc Ynqzktdz37.22NormalThe Formerly [facility] Hospital Physician GroupComment on above:Order Comment: NONFASTING.JKWResult Comment: PERFORMED BY: [place] [address] PATHOLOGIST SEAL DELIVERY VEHICLE TEAM TECHNICIAN GEOVANNI HENSON M.D.Performed By: #### SPE, TARIK SERUM, KAPPA #### [facility] , #### CMP, CBC #### [address] [place] [address] USAGFR/1.73 sq M.predicted MDRD (S/P/Bld) [Vol rate/Area] 49.533 mL/min/{1.73_m2}NormalThe Formerly [facility] Hospital Physician GroupComment on above:Order Comment: NONFASTING.JKWPerformed By: #### SPE, TARIK SERUM, KAPPA #### [facility] , #### CMP, CBC #### [place] [address] USACreatinine [Mass/volume] in Serum or PlasmaOrdered By: Altaf Das on 89-73-2046Hohunwtclb [Mass/Vol]1.43 mg/dLHigh0.70-1.30Providence HospitalComment on above:Order Comment: NONFASTING.JKWPerformed By: #### SPE, TARIK SERUM, KAPPA #### [facility] , #### CMP, CBC #### [place] [address] USAEosinophils [#/volume] in Blood by Automated countOrdered By: Altaf Das on 41-94-0559Xprjqgwdfya (Bld) [#/Vol]0.2 10*3/uLNormal 0.0-0.45Prov[facility] HospitalComment on above:Performed By: #### SPE, TARIK SERUM, KAPPA #### [facility] , #### CMP, CBC #### [place] [address] USAEosinophils/100 leukocytes in Blood by Automated count Ordered By: Altaf Das on 94-64-3327Fpqoicnrqos/100 WBC (Bld)3.0 %Normal. [facility] HospitalComment on above:Performed By: #### SPE, TARIK SERUM, KAPPA #### [facility] , #### CMP, CBC #### [facility] [address] [place] [address] USAErythrocyte distribution width [Ratio] by Automated count Ordered By: Altaf Das on 18-78-2061Oyooogzqkje distribution width (RBC) [Ratio]16.0 %High12.0-14.8Providence HospitalComment on above: Performed By: #### SPE, TARIK SERUM, KAPPA #### [facility] , #### CMP, CBC #### [facility] [address] [place] [address] USAErythrocytes [#/volume] in Blood by Automated countOrdered By: Lashaydexter Pippa on 36-00-3750UQX (Bld) [#/Vol]3.86 10*6/uLLow3.90-5.60 [facility] HospitalComment on above:Performed By: #### SPE, TARIK SERUM, KAPPA #### [facility] , #### CMP, CBC #### [place] [address] USAFree K+L LT Chains, Qn, Son 95-43-4695Evjn Kotlik Light Chains, S25.8 mg/LNormal3.3-19.4The Former[facility] Physician GroupComment on above: Performed By: #### RICHARD HOROWITZPLUS #### [place] [address] USAFree Lambda Light Chains, S15.4 mg/LNormal5.7-26.3The Former[facility] Physician GroupComment on above:Performed By: #### HECTOR HOROWITZUAPLUS #### [place] [address] USAKappa/Lambda Ratio, S1.13Aywpjh2.26-1.65The Former[facility] Physician GroupComment on above:Result Comment: Performed at: - [facility] [id number] Chair Car Attendant: Modesto Avila PhD, Phone: [phone] PERFORMED BY: [place] [address] PATHOLOGIST SEAL DELIVERY VEHICLE TEAM TECHNICIAN GEOVANNI HENSON M.D.Performed By: #### PROCRERAT, ADDONUAPLUS #### [facility] [address] [id number] USAGlucose [Mass/volume] in Serum or PlasmaOrdered By: Altaf Das on 49-64-8101Zraycll [Mass/Vol]86 mg/dPAffmex89-081XczufcfkoProvidence HospitalComment on above:ADA recommended reference rangeRandom Glucose Reference Range is dependent on time and content of last meal. Glucose of more than 200 mg/dL in a nonstressed, ambulatory subject supports the diagnosisof Diabetes Mellitus.Order Comment: NONFASTING.JKWResult Comment: Random Glucose Reference Range is dependent on time and content of last meal. Glucose of more than 200 mg/dL in a nonstressed, ambulatory subject supports the diagnosis of Diabetes Mellitus. ADA recommended reference rangePerformed By: #### SPE, TARIK SERUM, KAPPA #### [facility] , #### CMP, CBC #### [place] [id number] USAHematocrit [Volume Fraction] of Blood by Automated count Ordered By: Altaf Das on 47-94-1536Zewyqkqzsj (Bld) [Volume fraction]33.9 % Low38.8-50.0Providence HospitalComment on above:Performed By: #### SPE, TARIK SERUM, KAPPA #### [facility] , #### CMP, CBC #### [facility] [address] [id number] USAHemoglobin [Mass/volume] in BloodOrdered By: Altaf Yun on 22-20-2456Xsgxwdhfjg (Bld) [Mass/Vol]11.0 g/dLLow13.0-17.0Providence HospitalComment on above:Performed By: #### SPE, TARIK SERUM, KAPPA #### [facility] , #### CMP, CBC #### [facility] [address] [id number] USAImmunofixation,Serumon 07-78-7327Kuqkmmbyibvwtd, Serum Comment:Normal.The Former[facility] Physician GroupComment on above:Result Comment: Presence of monoclonal protein is unclear at this time. Suggest repeat in 3 to 6 months if clinically indicated.Performed By: #### CARLOS MANUEL ADDONUAPLUS #### [facility] [address] [place] [address] USAImmunoglobulin A, Serum72 mg/cKQfpxwu95-293Wxk [facility] Physician [facility] HospitalComment on above:Performed By: #### CARLOS MANUEL, ADDONUAPLUS #### [facility] [address] [id number] USAImmunoglobulin G816 mg/cWUqdsxi887-7851Ixh [facility] Physician [facility] HospitalComment on above:Performed By: #### PRAKASHT, ADDONUAPLUS #### [facility] [address] [place] [address] USAImmunoglobulin M, Serum81 mg/hJEvlruu09-728Nrq [facility] Phys[facility] HospitalComment on above:Result Comment: Performed at: - [facility] [address] [place] [id number] Chair Car Attendant: Modesto Avila PhD, Phone: [phone] By: #### CARLOS MANUEL ADDONUAPLUS #### [place] [id number] USALaboratory - Chemistry and Chemistry - challengeOrdered By: Altaf Das on 19-13-1562Yzeqplk [Mass/Vol]0.2 g/dLHighNot Observed Providence HospitalLeukocytes [#/volume] corrected for nucleated erythrocytes in Blood by Automated counOrdered By: Altaf Das on 09-12-2024 WBC corrected for nucl RBC Auto (Bld) [#/Vol]6.9 10*3/uL4.1-10.5FWVUMedicine Harrison Community HospitalLeukocytes [#/volume] in Blood by Automated countOrdered By: Altaf Das on 67-12-4696LVI (Bld) [#/Vol]6.9 10*3/uLNormal4.1-10.5 [facility] HospitalComment on above:Performed By: #### SPE, TARIK SERUM, KAPPA #### [facility] , #### CMP, CBC #### [place] [address] USALymphocytes [#/volume] in Blood by Automated countOrdered By: Altaf Das on 00-36-2654Gblhphytggq (Bld) [#/Vol]0.9 10*3/uLLow1.00-4.8 [facility] HospitalComasc[facility] river [facility] hospital on above:Performed By: #### SPE, TARIK SERUM, KAPPA #### [facility] , #### CMP, CBC #### [place] [address] USALymphocytes/100 leukocytes in Blood by Automated count Ordered By: Altaf Das on 65-14-8435Mqkxsskekag/100 WBC (Bld)13.4 %Normal. [facility] HospitalComasc[facility] hospital on above:Performed By: #### SPE, TARIK SERUM, KAPPA #### [facility] , #### CMP, CBC #### [facility] [address] [place] [address] [Entitic mass] by Automated countOrdered By: Altaf Yun on 85-33-4282BIL (RBC) [Entitic mass]28.5 knDynoce95.5-35.2FWVUMedicine Harrison Community HospitalComascension river district hospital on above:Performed By: #### SPE, TARIK SERUM, KAPPA #### [facility] , #### CMP, CBC #### [facility] [address] [place] [address] Auto (RBC) [Mass/Vol]Ordered By: Altaf Das on 90-02-5598PJFK (RBC) [Mass/Vol]32.5 g/dL32.5-35.6FWayne HealthCare Main CampusV [Entitic volume] by Automated countOrdered By: Altaf Das on 20-03-2386WFE (RBC) [Entitic vol]88.0 lFXnbnsd36.5-101Providence HospitalComment on above:Performed By: #### SPE, TARIK SERUM, KAPPA #### [facility] , #### CMP, CBC #### [facility] [address] [place], [place] [address] USAMonocytes [#/volume] in Blood by Automated countOrdered By: Altaf Das on 66-77-0606Owffwszyb (Bld) [#/Vol]1.0 10*3/uLHigh0.0-0.8 [facility] HospitalComment on above:Performed By: #### SPE, TARIK SERUM, KAPPA #### [facility] , #### CMP, CBC #### [facility] [address] [place], [place] [address] USAMonocytes/100 leukocytes in Blood by Automated count Ordered By: Altaf Das on 88-29-2626Txgdejytx/100 WBC (Bld)14.3 %Normal. [facility] HospitalComment on above:Performed By: #### SPE, TARIK SERUM, KAPPA #### [facility] , #### CMP, CBC #### [facility] [address] [place], [place] [address] USANeutrophils [#/volume] in Blood by Automated countOrdered By: Altaf Das on 12-98-9799Jfubzlzxkoh (Bld) [#/Vol]4.7 10*3/uLNormal 1.8-7.7FWVUMedicine Harrison Community HospitalComment on above:Performed By: #### SPE, TARIK SERUM, KAPPA #### [facility] , #### CMP, CBC #### [facility] [address] [place] [address] USANeutrophils/100 leukocytes in Blood by Automated count Ordered By: Altaf Das on 78-20-2298Ftkzzvwdlmw/100 WBC (Bld)68.6 %Normal. Providence HospitalComment on above:Performed By: #### SPE, TARIK SERUM, KAPPA #### [facility] , #### CMP, CBC #### [facility] [address] [place] [address] USANo Panel InformationOrdered By: Altaf Das on 18-47-2416Qrdsgxvrm GFR (CKD-EPI)49.533 mL/MinProvidence Hospital Pharmacy Creatinine Clearance (Chem55.22Providence HospitalProtein Electrophoresis NoteComment.Providence HospitalComment on above: Protein electrophoresis scan will follow via computer,mail, or carpentry foreman delivery.Performed at: [facility] [address] [id number] Director: Modesto Avila PhD, Phone: [phone] erythrocytes [Presence] in Blood by Automated countOrdered By: Altaf Das on 19-32-2877Gdcswelza RBC Auto Ql (Bld)0.0 /100{WBC}0-0.5FWVUMedicine Harrison Community HospitalPlatelet mean volume [Entitic volume] in Blood by Automated count Ordered By: Altaf Das on 19-19-5150Mgaiusmw mean volume (Bld) [Entitic vol] 8.5 fLNormal6.6-10.1FWVUMedicine Harrison Community HospitalComment on above:Performed By: #### SPE, TARIK SERUM, KAPPA #### [facility] , #### CMP, CBC #### [facility] [address] [place] [address] USAPlatelets [#/volume] in Blood by Automated countOrdered By: Altaf Das on 37-26-5843Utfkvnenx (Bld) [#/Vol]279 10*3/tOXumuzt599-755 Providence HospitalComment on above:Performed By: #### SPE, TARIK SERUM, KAPPA #### [facility] , #### CMP, CBC #### [facility] [address] [place] [address] USAPotassium [Moles/volume] in Serum or PlasmaOrdered By: Altaf NinaTramrolando on 11-53-4868Xwaqinkvf [Moles/Vol]5.0 mmol/LNormal3.5-5.1FWVUMedicine Harrison Community HospitalComment on above:Order Comment: NONFASTING.JKWPerformed By: #### SPE, TARIK SERUM, KAPPA #### [facility] , #### CMP, CBC #### [facility] [address] [place] [address] USAProtein Electrophoresis, Serumon 09-12-2024 Nlmvm-0-Dkuixtgl2.4 g/dLNormal0.0-0.4The [facility] Physician GroupComment on above:Performed By: #### CARLOS MANUEL ADDONUAPLUS #### [place] [address] LFIIcxfn-2-Wzfefxtf7.2 g/dLNormal0.4-1.0The [facility] Physician GroupComment on above:Performed By: #### CARLOS MANUEL ADDONUAPLUS #### [place] [address] USABeta Globulin0.9 g/dLNormal0.7-1.3The [facility] Physician GroupComment on above:Performed By: #### CARLOS MANUEL ADDONUAPLUS #### [place] [address] USAGamma Globulin0.7 g/dLNormal0.4-1.8The [facility] Physician GroupComment on above:Performed By: #### YAHIRREGLORIA ADDONUAPLUS #### [facility] [address] [place] [address] USAM-Spike0.2 g/dLNormalNot ObservedThe Formerly [facility] Hospital Physician GroupComment on above:Performed By: #### YAHIRREGLORIA ADDONUAPLUS #### [place] [address] USASPE-NoteCommentNormal.The [facility] Physician GroupComment on above:Result Comment: Protein electrophoresis scan will follow via computer, mail, or carpentry foreman delivery. Performed at: - [facility] [id number] Chair Car Attendant: Modesto Avila PhD, Phone: [phone] By: #### HECTOR HOROWITZUAPLUS #### [address] [address] USAProtein [Mass/volume] in Serum or PlasmaOrdered By: Altaf Das on 40-54-5593Omituuj [Mass/Vol]6.5 g/dLNormal6.4-8.9Providence HospitalComment on above:Order Comment: NONFASTING.JKWPerformed By: #### SPE, TARIK SERUM, KAPPA #### [facility] , #### CMP, CBC #### [address] [address] USASerum free kappa light chain measurementOrdered By: Altaf Das on 93-78-0509Rnqqhuzbtkijqa light chains.kappa.free (S) [Mass/Vol] 25.8 mg/LHigh3.3-19.4FMercy Health – The Jewish Hospitalerum globulin measurement (mass/volume)Ordered By: Altaf Das on 27-55-8137Fovdocbj (S) [Mass/Vol]3.1 g/dLNormal2.2-3.9Providence HospitalComment on above:Performed By: #### RICHARD HOROWITZPLUS #### [place] [id number] USASerum globulin measurement by calculation (mass/volume) Ordered By: Altaf Das on 78-79-6489Qjmzsxxl (S) [Mass/Vol]2.6 g/dLNormal Providence HospitalComment on above:Order Comment: NONFASTING.JKW Performed By: #### SPE, TARIK SERUM, KAPPA #### [facility] , #### CMP, CBC #### [place] [id number] USASerum immunoglobulin free kappa light chains/immunoglobulin free lambda light chainsOrdered By: Altaf Das on 39-02-8862Hutwoirxirodzf light chains.kappa.free/Immunoglobulin light chains.lambda.free (S) [Mass ratio]1.50Toqi2.26-1.65Providence HospitalComment on above:Performed at: [facility] [address] [id number] Director: Modesto Avila PhD, Phone: [phone] or plasma IgA measurement (mass/volume)Ordered By: Altaf Das on 09-12-2024 IgA [Mass/Vol]72 mg/rK45-342IljwdmsvnOur Lady of Mercy Hospital - Andersonerum or plasma IgG measurement (mass/volume)Ordered By: Altaf Das on 98-64-9396ByF [Mass/Vol] 816 mg/uO506-1215GiebfczksOur Lady of Mercy Hospital - Andersonerum or plasma IgM measurement (mass/volume)Ordered By: Altaf Das on 34-53-1459XoS [Mass/Vol] 81 mg/oC15-946IpfyewursProvidence HospitalComment on above:Performed at: [address] [id number] Director: Modesto Avila PhD, Phone: [phone] or plasma albumin measurement (mass/volume)Ordered By: Altaf Das on 85-26-7152Vbbiava [Mass/Vol]3.3 g/dL Normal2.9-4.4FWVUMedicine Harrison Community HospitalComment on above:Performed By: #### PROCRERAT, ADDONUAPLUS #### [facility] [address] [place] [address] USASerum or plasma albumin/globulin mass ratioOrdered By: Altaf Das on 32-96-1662Bejiiir/Globulin [Mass ratio]1.5 {ratio}NormalProvidence HospitalComment on above:Order Comment: NONFASTING.JKWPerformed By: #### SPE, TARIK SERUM, KAPPA #### [facility] , #### CMP, CBC #### [facility] [address] [place] [id number] USAAlbumin/Globulin [Mass ratio]1.1 {ratio}Normal0.7-1.7 Providence HospitalComment on above:Performed By: #### CARLOS MANUEL, HECTORUAPLUS #### [facility] [address] [place] [id number] USASerum or plasma alpha 1 globulin measurement by electrophoresis (mass/volume)Ordered By: Altaf Das on 49-84-4389Obtqg 1 globulin Elph [Mass/Vol]0.4 g/dL0.0-0.4FMercy Health – The Jewish Hospitalerum or plasma alpha 2 globulin measurement by electrophoresis (mass/volume)Ordered By: Altaf Das on 81-12-1464Cimip 2 globulin Elph [Mass/Vol]1.2 g/dLHigh0.4-1.0 [facility] - Andersonerum or plasma anion gap determinationOrdered By: Altaf Das on 03-34-0922Gewma gap [Moles/Vol]12.1 mmol/LNormal6.0-15.0 Providence HospitalComment on above:Order Comment: NONFASTING.JKW Performed By: #### SPE, TARIK SERUM, KAPPA #### [facility] , #### CMP, CBC #### [facility] [address] [place] [id number] USASerum or plasma beta globulin measurement by electrophoresis (mass/volume)Ordered By: Altaf Das on 11-76-9334Yaxj globulin Elph [Mass/Vol]0.9 g/dL0.7-1.3FMercy Health – The Jewish Hospitalerum or plasma gamma globulin measurement by electrophoresis (mass/volume)Ordered By: Altaf Das on 10-80-7526Dzysf globulin Elph [Mass/Vol]0.7 g/dL0.4-1.8 [facility] - Andersonerum or plasma immunoglobulin free lambda light chains measurement (mass/volume)Ordered By: Altaf Das on 09-12-2024 Immunoglobulin light chains.lambda.free [Mass/Vol]15.4 mg/L5.7-26.3FMercy Health – The Jewish Hospitalerum total protein measurementOrdered By: Altaf KirkDajaTramrolando on 08-88-2228Fmaojav [Mass/Vol]6.4 g/dLNormal6.0-8.5FWVUMedicine Harrison Community HospitalComment on above:Performed By: #### YAHIRRERALYRIC MaloneyONUAPLUS #### [facility] [address] [place] [address] USASodium [Moles/volume] in Serum or PlasmaOrdered By: Altaf NinaTramrolando on 61-15-9288Xdvphb [Moles/Vol]139 mmol/BUllufh060-386UutgukjekProvidence HospitalComment on above:Order Comment: NONFASTING.JKWPerformed By: #### SPE, TARIK SERUM, KAPPA #### [facility] , #### CMP, CBC #### [facility] [address] [place] [address] USAUrea nitrogen [Mass/volume] in Serum or PlasmaOrdered By: Altaf NinaTramrolando on 74-57-0147Bipw nitrogen [Mass/Vol]36 mg/dLHigh7-25Providence HospitalComment on above:Order Comment: NONFASTING.JKWPerformed By: #### SPE, TARIK SERUM, KAPPA #### [facility] , #### CMP, CBC #### [facility] [address] [place] [address] USAPSA Totalon 36-11-3266OGR Total0.5 ng/mLNormal0.1-3.5 [facility]aw[facility] HospitalComment on above:Result Comment: The concentration of PSA determined by different manufacturers can vary due to differences in assay methods and reagent specificity. Values obtained from different assay methods cannot be used interchangeably. The methodology used for this result was chemiluminescence using [employer]'s Access [employer] PSA reagent.Performed By: #### [id number] #### [facility] [address] [place] [address]Mepuntcrxej 66-30-8987DykxgnjfyCskknsgoz From: Nevaeh Arias To: EU - Recalls Torres; Sent: 10/19/2023 20:48:00 EDT Show up: 07/07/2024 20:47:00 EDT Subject: cysto/fish/cytol Due Date/Time: 08/05/2024 20:47:00 EDT Reminder/Recall Patient is due in September 2024 for 1 year cysto/.fish/cytol (bt ck) Patient sched 10/01/24 in [place] office.LGNoDiley Ridge Medical CenterA1C with Estimated Average Gluon 38-17-6758Famjfyk [Mass/Vol]123 mg/dLNormalThWeiser Memorial Hospital Physician GroupComment on above:Result Comment: PERFORMED BY: [place] [address] PATHOLOGIST SEAL DELIVERY VEHICLE TEAM TECHNICIAN JAYLEN BEVERLY M.D.Performed By: #### A1C WTH eA, LIPID #### [place] [address] NTEZhQ4u (Bld) [Mass fraction]5.9 %High4.3-5.6The [facility] Physician GroupComment on above:Result Comment: Increased risk for diabetes: 5.7 - 6.4 diabetes: >6.4 glycemic control for adults with diabetes: <7.0Performed By: #### A1C WTH eA, LIPID #### [place] [address] USAAlanine aminotransferase [Enzymatic activity/volume] in Serum or PlasmaOrdered By: Mireya Pichardo on 93-63-5012OXB [Catalytic activity/Vol] Alanine aminotransferase [Enzymatic activity/volume] in Serum or Plasma7- Providence HospitalAlbumin [Mass/volume] in Serum or Plasma by Bromocresol green (BCG) dye binding methoOrdered By: Mireya Pichardo on 06-18-2024 Albumin BCG dye [Mass/Vol]Albumin [Mass/volume] in Serum or Plasma by Bromocresol green (BCG) dye binding metho3.5-5.7FWVUMedicine Harrison Community HospitalAlkaline phosphatase [Enzymatic activity/volume] in Serum or PlasmaOrdered By: Mireya Pichardo on 30-55-5082ILI [Catalytic activity/Vol]Alkaline phosphatase [Enzymatic activity/volume] in Serum or NksbifQyyw00-081PfglaykvfProvidence HospitalAppearance of UrineOrdered By: Mireya Pichardo on 71-55-4669Wndbrhoaud (U)Urine appearanceCleTrumbull Regional Medical CenterAspartate aminotransferase [Enzymatic activity/volume] in Serum or PlasmaOrdered By: Mireya Pichardo on 44-63-2530OOD [Catalytic activity/Vol]Aspartate aminotransferase [Enzymatic activity/volume] in Serum or Ezbpux07-76WwoqpbvrgProvidence HospitalB-Type Natriuretic Peptideon 50-02-1239Qgrfhssdcyj peptide B (Bld) [Mass/Vol]149.0 pg/mLHigh5-100The Former[facility] Physician GroupComment on above: Result Comment: PERFORMED BY: [place] [address] PATHOLOGIST SEAL DELIVERY VEHICLE TEAM TECHNICIAN JAYLEN BEVERLY M.D.Performed By: #### A1C WTH eA, LIPID #### [address] [address] USABacteria [Presence] in Urine by AutomatedOrdered By: Mireya Pichardo on 98-58-1323Fjqsxohy Auto Ql (U)Bacteria [Presence] in Urine by AutomatedNone [facility] HospitalBasic Metabolic Panelon 48-32-0233Lyszj gap [Moles/Vol]Not performedNormal6.0-15.0The [facility] Physician GroupComment on above:Performed By: #### A1C WTH eA, LIPID #### [facility] [address] [place] [address] USACalcium [Mass/Vol]9.4 mg/dLNormal8.6-10.3The Former[facility] Physician GroupComment on above:Performed By: #### A1C WTH eA, LIPID #### [facility] [address] [place] [address] USAChloride [Moles/Vol]108 mmol/TAcmf43-411Dcx Former[facility] Physician GroupComment on above:Performed By: #### A1C WTH eA, LIPID #### [facility] [address] [place] [address] USACO2 [Moles/Vol]23.7 mmol/LSfblqr43.0-31.0The [facility] Physician GroupComment on above:Performed By: #### A1C WTH eA, LIPID #### [place] [address] USACreatinine [Mass/Vol]1.78 mg/dLHigh0.70-1.30The [facility] Physician GroupComment on above:Performed By: #### A1C WTH eA, LIPID #### [place] [address] USACreatinine Clr Calc Ntxgutnb54.37NoCrawley Memorial Hospital Physician Yalobusha General HospitalComment on above:Result Comment: PERFORMED BY: [place] [address] PATHOLOGIST SEAL DELIVERY VEHICLE TEAM TECHNICIAN JAYLEN BEVERLY M.D.Performed By: #### A1C WTH eA, LIPID #### [place] [address] USAEstimated GFR38.326 mL/MinNoCrawley Memorial Hospital Physician Yalobusha General HospitalComment on above:Performed By: #### A1C WTH eA, LIPID #### [place] [address] USAGlucose [Mass/Vol]109 mg/eQCxce38-266Lsc [facility] Physician GroupComment on above:Result Comment: Random Glucose Reference Range is dependent on time and content of last meal. Glucose of more than 200 mg/dL in a nonstressed, ambulatory subject supports the diagnosis of Diabetes Mellitus. ADA recommended reference rangePerformed By: #### A1C WTH eA, LIPID #### [place] [address] USAPotassiumNormal3.5-5.1The Former[facility] Physician GroupComment on above:Result Comment: Specimen hemolyzed, redraw requestedPerformed By: #### A1C WTH eA, LIPID #### [place] [address] USASodium [Moles/Vol]139 mmol/ZBmtvsc618-823Ypa [facility] Physician GroupComment on above:Performed By: #### A1C WT eA, LIPID #### [facility] [address] [place] [id number] USAUrea nitrogen [Mass/Vol]41 mg/dLHigh7-25The [facility] Physician GroupComment on above:Performed By: #### A1C WTH eA, LIPID #### [facility] [address] [place] [id number] USABasophils Auto (Bld) [#/Vol]Ordered By: PROVIDER TEMP on 83-33-1976Icoloxkce (Bld) [#/Vol]Automated basophil count0.0-0.2FWVUMedicine Harrison Community HospitalBasophils Auto (Bld) [#/Vol]Ordered By: Mireya Edmondsondir on 47-37-3932Izkvagerc (Bld) [#/Vol]Automated basophil count0.0-0.2FWVUMedicine Harrison Community HospitalBasophils/100 WBC Auto (Bld)Ordered By: PROVIDER TEMP on 81-11-3868Doiipgciw/100 WBC (Bld)Automated basophil %.Providence HospitalBasophils/100 WBC Auto (Bld)Ordered By: Mireya Pichardo on 06-18-2024 Basophils/100 WBC (Bld)Automated basophil %.[facility] Bilirubin Test strip Ql (U)Ordered By: Mireya Pichardo on 59-87-0856Ylcjqjtrv Ql (U) Bilirubin.total [Presence] in Urine by Test stripNegativeProvidence HospitalBilirubin.total [Mass/volume] in Serum or PlasmaOrdered By: Mireya Pichardo on 37-56-9097Sjigokjlv [Mass/Vol]Bilirubin.total [Mass/volume] in Serum or Plasma0.3-1.0Providence HospitalBlood estimated average glucose determination by estimation from glycated hemoglobinOrdered By: Juvencio Sanchez on 56-40-9616Repiuwo glucose Estimated from glycated hemoglobin (Bld) [Mass/Vol] Glucose mean value [Mass/volume] in Blood Estimated from glycated hemoglobin Providence HospitalCalcium [Mass/volume] in Serum or PlasmaOrdered By: PROVIDER TEMP on 97-18-2647Rirbddn [Mass/Vol]Calcium [Mass/volume] in Serum or Plasma8.6-10.3FWVUMedicine Harrison Community HospitalCalcium [Mass/volume] in Serum or PlasmaOrdered By: Mireya Pichardo on 20-93-3687Xzkdvqu [Mass/Vol]Calcium [Mass/volume] in Serum or Plasma8.6-10.3FWVUMedicine Harrison Community HospitalCarbon dioxide, total [Moles/volume] in Serum or PlasmaOrdered By: PROVIDER TEMP on 72-79-8465NE7 [Moles/Vol]Carbon dioxide, total [Moles/volume] in Serum or Plasma 21.0-31.0Providence HospitalCarbon dioxide, total [Moles/volume] in Serum or PlasmaOrdered By: Mireya Pichardo on 43-07-0565BE9 [Moles/Vol]Carbon dioxide, total [Moles/volume] in Serum or Btxnur67.0-31.0Providence HospitalChloride [Moles/volume] in Serum or PlasmaOrdered By: PROVIDER TEMP on 51-87-3939Fnmpahmh [Moles/Vol]Chloride [Moles/volume] in Serum or Plasma Xvlv27-842MnfktjuelProvidence HospitalChloride [Moles/volume] in Serum or PlasmaOrdered By: Mireya Pichardo on 82-91-1675Bsytwuss [Moles/Vol]Chloride [Moles/volume] in Serum or Wfuesl68-846Abeigc[address] Cholesterol [Mass/volume] in Serum or PlasmaOrdered By: Juvencio Sanchez on 19-99-1002Kqgbsfvxsge [Mass/Vol]Cholesterol [Mass/volume] in Serum or PlasmaLow 140-200Providence HospitalComment on above:Chol less than 200 mg/dl low riskChol 201-239 mg/dl borderline riskChol 240 mg/dl and greater high riskCholesterol in HDL [Mass/volume] in Serum or PlasmaOrdered By: Juvencio Sanchez on 71-70-5496Dmaioubewah in HDL [Mass/Vol]Serum or plasma high density lipoprotein (HDL) cholesterol fkvljwhdbog12-60BulakvkypProvidence Hospital Comment on above:HDL CHOL ATP-III CLASSIFICATION Cardiovascular RiskHDL > or equal to 60 mg/dL LOWHDL < 40 mg/dL HIGHCholesterol in LDL Calc [Mass/Vol] Ordered By: Juvencio Sanchez on 21-20-1025Ebwtrxkplwd in LDL [Mass/Vol]Cholesterol in LDL [Mass/volume] in Serum or Plasma by calculationProvidence HospitalComment on above:LDL ATP III CLASSIFICATIONLDL less than 100 mg/dL OptimalLDL 100-129 mg/dL Near or above ykzieabCHM055-646 mg/dL Borderline highLDL 160-189 mg/dL HighLDL greater than 189 mg/dL Very highCholesterol in VLDL Calc [Mass/Vol]Ordered By: Juvencio Sanchez on 92-32-5028Rlpbubfcfae in VLDL [Mass/Vol]Cholesterol in VLDL [Mass/volume] in Serum or Plasma by calculation Providence HospitalColor Auto (U)Ordered By: Mireya Pichardo on 18-08-7952Nwjti (U)Color of Urine by AutoYellowProvidence Hospital Complete Blood Count Auto Diffon 32-94-2752Ywhifwyys (Bld) [#/Vol]0.0 10*3/uL Normal0.0-0.2The [facility] Physician GroupComment on above:Result Comment: PERFORMED BY: [place] [address] PATHOLOGIST SEAL DELIVERY VEHICLE TEAM TECHNICIAN JAYLEN BEVERLY M.D.Performed By: #### A1C WT eA, LIPID #### [place] [address] USABasophils/100 WBC (Bld)0.4 %Normal.The [facility] Physician GroupComment on above:Performed By: #### A1C WTH eA, LIPID #### [facility] [address] [place] [address] USAEosinophils (Bld) [#/Vol]0.1 10*3/uLNormal0.0-0.45The Former[facility] Physician GroupComment on above:Performed By: #### A1C WTH eA, LIPID #### [facility] [address] [place] [address] USAEosinophils/100 WBC (Bld)0.8 %Normal.The Former[facility] Physician GroupComment on above:Performed By: #### A1C WTH eA, LIPID #### [facility] [address] [place] [address] USAErythrocyte distribution width (RBC) [Ratio]15.5 %High 12.0-14.8The Formerly [facility] Physician GroupComment on above:Performed By: #### A1C WTH eA, LIPID #### [facility] [address] [place] [address] USAHematocrit (Bld) [Volume fraction]39.7 %Ddplqz29.8-50.0The Former[facility] Physician GroupComment on above:Performed By: #### A1C WTH eA, LIPID #### [place] [address] USAHemoglobin (Bld) [Mass/Vol]13.2 g/gMAbvrme22.0-17.0The [facility] Physician GroupComment on above:Performed By: #### A1C WTH eA, LIPID #### [place] [address] USALymphocytes (Bld) [#/Vol]1.6 10*3/uLNormal1.00-4.8The Former[facility] Physician GroupComment on above:Performed By: #### A1C WTH eA, LIPID #### [place] [address] USALymphocytes/100 WBC (Bld)14.1 %Normal.The [facility] Physician GroupComment on above:Performed By: #### A1C WTH eA, LIPID #### [place] [address] USAMCH (RBC) [Entitic mass]29.8 lxYqkolx06.5-35.2The [facility] Physician GroupComment on above:Performed By: #### A1C WTH eA, LIPID #### [place] [address] USAMCV (RBC) [Entitic vol]89.8 jQRfxpom54.5-101The Former[facility] Physician GroupComment on above:Performed By: #### A1C WTH eA, LIPID #### [place] [address] USAMean Corpuscular HGB Conc33.2 g/jQTdlwfh62.5-35.6The Former[facility] Physician GroupComment on above:Performed By: #### A1C WTH eA, LIPID #### [facility] [address] [place] [address] USAMonocytes (Bld) [#/Vol]1.0 10*3/uLHigh0.0-0.8The Former[facility] Physician GroupComment on above:Performed By: #### A1C WTH eA, LIPID #### [place] [address] USAMonocytes/100 WBC (Bld)16.78 %Normal0.00-20.00The Former[facility] Physician GroupComment on above:Result Comment: For adults in ED, MDW > 20.0 may be associated with a higher risk of sepsis during the first 12 hrs of hospital admissionPerformed By: #### A1C WTH eA, LIPID #### [facility] [address] [place] [address] USAMonocytes/100 WBC (Bld)9.2 %Normal.The Former[facility] Physician GroupComment on above:Performed By: #### A1C WTH eA, LIPID #### [facility] [address] [place] [address] USANeutrophils (Bld) [#/Vol]8.4 10*3/uLHigh1.8-7.7The Former[facility] Physician GroupComment on above:Performed By: #### A1C WTH eA, LIPID #### [facility] [address] [place] [address] USANeutrophils/100 WBC (Bld)75.5 %Normal.The [facility] Physician GroupComment on above:Performed By: #### A1C WTH eA, LIPID #### [facility] [address] [place] [address] USANRBC%0.3 /100{WBC}Normal0-0.5The [facility] Group Comment on above:Performed By: #### A1C WTH eA, LIPID #### [facility] [address] [place] [address] USAPlatelet mean volume (Bld) [Entitic vol]8.4 fLNormal 6.6-10.1The Former[facility] Physician GroupComment on above:Performed By: #### A1C WTH eA, LIPID #### [facility] [address] [place] [address] USAPlatelets (Bld) [#/Vol]315 10*3/cWNcprjc396-227Gdw [facility] Physician GroupComment on above:Performed By: #### A1C WTH eA, LIPID #### [place] [address] USARBC (Bld) [#/Vol]4.42 10*6/uLNormal3.90-5.60The [facility] Physician GroupComment on above:Performed By: #### A1C WT eA, LIPID #### [place] [address] USAWBC (Bld) [#/Vol]11.0 10*3/uLHigh4.1-10.5The [facility] Physician GroupComment on above:Performed By: #### A1C WTH eA, LIPID #### [place] [address] USABasophils (Bld) [#/Vol]0.0 10*3/uLNormal0.0-0.2The [facility] Physician GroupComment on above:Result Comment: PERFORMED BY: [place] [address] PATHOLOGIST SEAL DELIVERY VEHICLE TEAM TECHNICIAN JAYLEN BEVERLY M.D.Performed By: #### CBC, CMP, FE and TIBC, JOSSUE #### [place] [address] USABasophils/100 WBC (Bld)0.3 %Normal.The [facility] Physician GroupComment on above:Performed By: #### CBC, CMP, FE and TIBC, JOSSUE #### [place] [address] USAEosinophils (Bld) [#/Vol]0.0 10*3/uLNormal0.0-0.45The [facility] Physician GroupComment on above:Performed By: #### CBC, CMP, FE and TIBC, JOSSUE #### [place] [address] USAEosinophils/100 WBC (Bld)0.1 %Normal.The [facility] Physician GroupComment on above:Performed By: #### CBC, CMP, FE and TIBC, JOSSUE #### [place] [address] USAErythrocyte distribution width (RBC) [Ratio]15.3 %High 12.0-14.8The Former[facility] Physician GroupComment on above:Performed By: #### CBC, CMP, FE and TIBC, JOSSUE #### [place] [address] USAHematocrit (Bld) [Volume fraction]39.6 %Dtgzed01.8-50.0The Former[facility] Physician GroupComment on above:Performed By: #### CBC, CMP, FE and TIBC, JOSSUE #### [place] [address] USAHemoglobin (Bld) [Mass/Vol]12.9 g/dLLow13.0-17.0The [facility] Physician GroupComment on above:Performed By: #### CBC, CMP, FE and TIBC, JOSSUE #### [place] [address] USALymphocytes (Bld) [#/Vol]1.1 10*3/uLNormal1.00-4.8The [facility] Physician GroupComment on above:Performed By: #### CBC, CMP, FE and TIBC, JOSSUE #### [place] [address] USALymphocytes/100 WBC (Bld)8.5 %Normal.The [facility] Physician GroupComment on above:Performed By: #### CBC, CMP, FE and TIBC, JOSSUE #### [place] [address] USAMCH (RBC) [Entitic mass]29.5 ndZazzoy28.5-35.2The [facility] Physician GroupComment on above:Performed By: #### CBC, CMP, FE and TIBC, JOSSUE #### [place] [address] USAMCV (RBC) [Entitic vol]90.6 eVOjgimh68.5-101The [facility] Physician GroupComment on above:Performed By: #### CBC, CMP, FE and TIBC, JOSSUE #### [place] [address] USAMean Corpuscular HGB Conc32.6 g/zBHodwno77.5-35.6The [facility] Physician GroupComment on above:Performed By: #### CBC, CMP, FE and TIBC, JOSSUE #### [place] [address] USAMonocytes (Bld) [#/Vol]0.9 10*3/uLHigh0.0-0.8The [facility] Physician GroupComment on above:Performed By: #### CBC, CMP, FE and TIBC, JOSSUE #### [place] [address] USAMonocytes/100 WBC (Bld)7.2 %Normal.The [facility] Physician GroupComment on above:Performed By: #### CBC, CMP, FE and TIBC, JOSSUE #### [place] [address] USANeutrophils (Bld) [#/Vol]11.0 10*3/uLHigh1.8-7.7The [facility] Physician GroupComment on above:Performed By: #### CBC, CMP, FE and TIBC, JOSSUE #### [place] [address] USANeutrophils/100 WBC (Bld)83.9 %Normal.The [facility] Physician GroupComment on above:Performed By: #### CBC, CMP, FE and TIBC, JOSSUE #### [place] [address] USANRBC%0.1 /100{WBC}Normal0-0.5The [facility] Comment on above:Performed By: #### CBC, CMP, FE and TIBC, JOSSUE #### [address] [place] [address] USAPlatelet mean volume (Bld) [Entitic vol]8.5 fLNormal 6.6-10.1The [facility] Physician GroupComment on above:Performed By: #### CBC, CMP, FE and TIBC, JOSSUE #### [place] [address] USAPlatelets (Bld) [#/Vol]296 10*3/yDQrqfnr200-495Fvu [facility] Physician GroupComment on above:Performed By: #### CBC, CMP, FE and TIBC, JOSSUE #### [place] [address] USARBC (Bld) [#/Vol]4.37 10*6/uLNormal3.90-5.60The [facility] Physician GroupComment on above:Performed By: #### CBC, CMP, FE and TIBC, JOSSUE #### [place] [address] USAWBC (Bld) [#/Vol]13.1 10*3/uLHigh4.1-10.5The [facility] Physician GroupComment on above:Performed By: #### CBC, CMP, FE and TIBC, JOSSUE #### [place] [address] USAComprehensive Metabolic Panelon 95-68-6069Spzpbqf [Mass/Vol]4.0 g/dLNormal3.5-5.7The [facility] Physician GroupComment on above: Performed By: #### CBC, CMP, FE and TIBC, JOSSUE #### [place] [address] USAAlbumin/Globulin [Mass ratio]1.5 {ratio}NormalThe Formerly [facility] Physician GroupComment on above:Performed By: #### CBC, CMP, FE and TIBC, JOSSUE #### [place] [address] USAALP [Catalytic activity/Vol]128 U/LUtuy28-315Cho [facility] Physician GroupComment on above:Performed By: #### CBC, CMP, FE and TIBC, JOSSUE #### [place] [address] USAALT [Catalytic activity/Vol]22 U/LNormal7-52The [facility] Physician GroupComment on above:Performed By: #### CBC, CMP, FE and TIBC, JOSSUE #### [place] [address] USAAnion gap [Moles/Vol]12.4 mmol/LNormal6.0-15.0The [facility] Physician GroupComment on above:Performed By: #### CBC, CMP, FE and TIBC, JOSSUE #### [place] [address] USAAST [Catalytic activity/Vol]19 U/RAxnobd75-17Nfy [facility] Physician GroupComment on above:Performed By: #### CBC, CMP, FE and TIBC, JOSSUE #### [place] [address] USABilirubin [Mass/Vol]0.4 mg/dLNormal0.3-1.0The [facility] Physician GroupComment on above:Performed By: #### CBC, CMP, FE and TIBC, JOSSUE #### [place] [address] USACalcium [Mass/Vol]9.7 mg/dLNormal8.6-10.3The [facility] Physician GroupComment on above:Performed By: #### CBC, CMP, FE and TIBC, JOSSUE #### [place] [address] USAChloride [Moles/Vol]104 mmol/TIqbskp03-058Wfs [facility] Physician GroupComment on above:Performed By: #### CBC, CMP, FE and TIBC, JOSSUE #### [place] [address] USACO2 [Moles/Vol]26.6 mmol/NCbpowt25.0-31.0The [facility] Physician GroupComment on above:Performed By: #### CBC, CMP, FE and TIBC, JOSSUE #### [place] [address] USACreatinine [Mass/Vol]1.51 mg/dLHigh0.70-1.30The Former[facility] Physician GroupComment on above:Performed By: #### CBC, CMP, FE and TIBC, JOSSUE #### [facility] [address] [place] [address] USAEstimated GFR46.691 mL/MinNormalThWeiser Memorial Hospital Physician [facility] General HospitalComment on above:Performed By: #### CBC, CMP, FE and TIBC, JOSSUE #### [facility] [address] [place] [address] USAGlobulin (S) [Mass/Vol]2.6 g/dLNoCrawley Memorial Hospital Physician GroupComment on above:Performed By: #### CBC, CMP, FE and TIBC, JOSSUE #### [place] [address] USAGlucose [Mass/Vol]103 mg/fQFtsq82-448Ktd [facility] Physician GroupComment on above:Result Comment: Random Glucose Reference Range is dependent on time and content of last meal. Glucose of more than 200 mg/dL in a nonstressed, ambulatory subject supports the diagnosis of Diabetes Mellitus. ADA recommended reference rangePerformed By: #### CBC, CMP, FE and TIBC, JOSSUE #### [place] [address] USAPotassium [Moles/Vol]6.0 mmol/LHigh3.5-5.1The [facility] Physician [facility] HospitalComment on above:Performed By: #### CBC, CMP, FE and TIBC, JOSSUE #### [facility] [address] [place] [address] USAProtein [Mass/Vol]6.6 g/dLNormal6.4-8.9The [facility] Physician [facility] HospitalComment on above:Performed By: #### CBC, CMP, FE and TIBC, JOSSUE #### [facility] [address] [place] [address] USASodium [Moles/Vol]137 mmol/ZWexdyr760-798Ozh [facility] Physician [facility] HospitalComment on above:Performed By: #### CBC, CMP, FE and TIBC, JOSSUE #### [address] [address] USAUrea nitrogen [Mass/Vol]38 mg/dLHigh7-25The [facility] Physician GroupComment on above:Performed By: #### CBC, CMP, FE and TIBC, JOSSUE #### [facility] [address] [place] [address] USACreatine Kinaseon 53-93-9191AE [Catalytic activity/Vol]41 U/VFqxrme72-095Qbe [facility] Physician GroupComment on above:Result Comment: Hemolysis is present at a level that could interfere with the result.Performed By: #### A1C WTH eA, LIPID #### [facility] [address] [place] [address] USACreatine kinase [Enzymatic activity/volume] in Serum or PlasmaOrdered By: PROVIDER TEMP on 32-61-3505EX [Catalytic activity/Vol]Creatine kinase [Enzymatic activity/volume] in Serum or Gelrdi01-688GrjvohedgProvidence HospitalComment on above:Hemolysis is present at a level that could interfere with the result.Creatinine [Mass/volume] in Serum or PlasmaOrdered By: PROVIDER TEMP on 55-51-1690Bkvsogjlen [Mass/Vol]Creatinine [Mass/volume] in Serum or PlasmaHigh0.70-1.30Providence HospitalCreatinine [Mass/volume] in Serum or PlasmaOrdered By: Mireya Pichardo on 06-69-4130Qtqfcgbhdf [Mass/Vol]Creatinine [Mass/volume] in Serum or PlasmaHigh0.70-1.30Providence HospitalCreatinine [Mass/volume] in UrineOrdered By: Mireya Pichardo on 14-51-8972Jgjioqtjzr (U) [Mass/Vol]Creatinine [Mass/volume] in UrineProvidence HospitalComment on above:No reference range establishedDipstick and Microscopicon 63-79-4314Cjhtewagkn (U)ClearNormalClearThe Formerly [facility] Physician GroupComment on above:Order Comment: Name Collection Type:: Clean- Voided MidstreamPerformed By: #### A1C WTH eA, LIPID #### [facility] [address] [place] [address] USABacteria,UrineNone SeenNormalNone SeenThe Formerly [facility] Physician GroupComment on above:Order Comment: Name Collection Type:: Clean- Voided MidstreamPerformed By: #### A1C WTH eA, LIPID #### [facility] [address] [place] [address] USABilirubin,UrineNegativeNormalNegativeHolmes Regional Medical Center Physician GroupComment on above:Order Comment: Name Collection Type:: Clean- Voided MidstreamPerformed By: #### A1C WTH eA, LIPID #### [facility] [address] [place] [id number] USAColor (U)Light-YellowNormalYellowHolmes Regional Medical Center Physician GroupComment on above:Order Comment: Name Collection Type:: Clean-Voided MidstreamPerformed By: #### A1C WTH eA, LIPID #### [facility] [address] [place] [id number] USAGlucose Ql (U)NormalNormalNormalThWeiser Memorial Hospital Physician GroupComment on above:Order Comment: Name Collection Type:: Clean-Voided MidstreamPerformed By: #### A1C WTH eA, LIPID #### [facility] [address] [place] [id number] USAHyaline Casts,Isjbh1-95Txpp1-6Noi [facility] Physician GroupComment on above:Order Comment: Name Collection Type:: Clean-Voided MidstreamPerformed By: #### A1C WTH eA, LIPID #### [facility] [address] [place] [address] USAKetones Ql (U)NegativeNormalNegativeHolmes Regional Medical Center Physician GroupComment on above:Order Comment: Name Collection Type:: Clean- Voided MidstreamPerformed By: #### A1C WTH eA, LIPID #### [facility] [address] [place] [address] USALeukocyte esterase Test strip Ql (U)NegativeNormalNegative The [facility] Physician GroupComment on above:Order Comment: Name Collection Type:: Clean-Voided MidstreamPerformed By: #### A1C WTH eA, LIPID #### [facility] [address] [place] [id number] USAMucus,UrineRareNormalHolmes Regional Medical Center Physician GroupComment on above:Order Comment: Name Collection Type:: Clean-Voided MidstreamResult Comment: PERFORMED BY: [place] [address] PATHOLOGIST [employer]IV[employer]LE TEAM TECHNICIAN JAYLEN BEVERLY M.D.Performed By: #### A1C WTH eA, LIPID #### [place] [address] USANitrite,UrineNegativeNormalNegativeThe [facility] Physician GroupComment on above:Order Comment: Name Collection Type:: Clean-Voided MidstreamPerformed By: #### A1C WTH eA, LIPID #### [place] [address] USAOccult Blood,UrineNegativeNormalNegativeThe [facility] Physician GroupComment on above:Order Comment: Name Collection Type:: Clean- Voided MidstreamPerformed By: #### A1C WTH eA, LIPID #### [place] [address] USApH (U)5.5 [pH]Normal5.0-9.0The [facility] Comment on above:Order Comment: Name Collection Type:: Clean-Voided Midstream Performed By: #### A1C WTH eA, LIPID #### [place] [address] USAProtein,UrineTraceHighNegativeThe [facility] Physician GroupComment on above:Order Comment: Name Collection Type:: Clean-Voided MidstreamPerformed By: #### A1C WTH eA, LIPID #### [place] [address] USARBC,Tkcwr5-9Zwosja5-7Vmt [facility] Physician GroupComment on above:Order Comment: Name Collection Type:: Clean-Voided MidstreamPerformed By: #### A1C WTH eA, LIPID #### [place] [address] USASpecificy Goldvein,Urine1.961Tzytgq6.001-1.030The Former[facility] Physician GroupComment on above:Order Comment: Name Collection Type:: Clean- Voided MidstreamPerformed By: #### A1C WTH eA, LIPID #### [facility] [address] [place] [address] USAUrobilinogen,UrineNormalNormalNormSarasota Memorial Hospital - Venice Physician GroupComment on above:Order Comment: Name Collection Type:: Clean- Voided MidstreamPerformed By: #### A1C WTH eA, LIPID #### [facility] [address] [place] [address] USAWBC,Kzqht9-1Bueljh9-1Qgf [facility] Physician GroupComment on above:Order Comment: Name Collection Type:: Clean-Voided MidstreamPerformed By: #### A1C WTH eA, LIPID #### [facility] [address] [place] [address] USAECG 12 lead ECGon 55-11-6432DUW 12 [place] [address] Electrocardiograph Report Signed Patient: Indiana Hines MR#: [id number] [birth year] : 1945 Acct:[id number] Age/Sex: 78 / M ADM Date: 06/18/24 Loc: ER Room: Type: PRE ER Attending Dr: Ordering Provider: Alanna Tidwell MD Date of Service: 06/18/24 ECG/ECG 12 lead ECG: Recheck/Abnormal Lab/Rx Copies to: Test Reason : Blood Pressure : 139/73 mmHG Vent. Rate : 66 BPM Atrial Rate : 267 BPM P-R Int : * ms QRS Dur : 84 ms QT Int : 422 ms P-R-T Axes : 50 31 34 degrees QTcB Int : 442 ms Atrial flutter with 4:1 AV conduction Abnormal ECG When compared with ECG of 18-Jun-2024 15:01, (Unconfirmed) Atrial flutter has replaced Sinus rhythm Confirmed by Alanna Tidwell MD ([id number]) on 06/18/2024 5:52:36 PM Referred By: Electronically Signed By: Alanna Tidwell MD Transcribed By: MUS Signed By Alanna Tidwell MD 06/06 04/[address] [place] [address] Physician GroupECG 12 lead ECGMARTINS [place] [address] Electrocardiograph Report Signed Patient: Indiana Hines MR#: [id number] [birth year] : 1945 Acct:[id number] Age/Sex: 78 / M ADM Date: 06/18/24 Loc: ER Room: Type: PRE ER Attending Dr: Ordering Provider: Alanna Tidwell MD Date of Service: 06/18/24 ECG/ECG 12 lead ECG: Recheck/Abnormal Lab/Rx Copies to: Test Reason : Blood Pressure : 112/60 mmHG Vent. Rate : 68 BPM Atrial Rate : 68 BPM P-R Int : 208 ms QRS Dur : 88 ms QT Int : 416 ms P-R-T Axes : 64 46 50 degrees QTcB Int : 442 ms Normal sinus rhythm 20-May-2024 14:06, Questionable change in QRS axis Confirmed by Alanna Tidwell MD ([id number]) on 06/18/2024 5:50:57 PM Referred By: Electronically Signed By: Alanna Tidwell MD Transcribed By: MUS Signed By Alanna Tidwell MD 06/06 04/[address] [place] [address] Physician GroupEosinophils Auto (Bld) [#/Vol] Ordered By: PROVIDER TEMP on 33-41-8895Dopcztwlahz (Bld) [#/Vol]Automated eosinophil count0.0-0.45Providence HospitalEosinophils Auto (Bld) [#/Vol]Ordered By: Mireya Pichardo on 79-87-1215Acgysgosapv (Bld) [#/Vol]Automated eosinophil count0.0-0.45Providence HospitalEosinophils/100 WBC Auto (Bld)Ordered By: PROVIDER TEMP on 39-31-1634Ymdewzpmjnj/100 WBC (Bld) Automated eosinophil %.Providence HospitalEosinophils/100 WBC Auto (Bld)Ordered By: Mireya Pichardo on 01-27-6859Yvhnnzaeeee/100 WBC (Bld)Automated eosinophil %.Providence HospitalEpithelial cells.squamous [#/area] in Urine sediment by Automated countOrdered By: Mireya Pichardo on 05-13-2025 Epithelial cells.squamous Auto (Urine sed) [#/Area]Epithelial cells.squamous [#/area] in Urine sediment by Automated countProvidence Hospital Erythrocyte distribution width Auto (RBC) [Ratio]Ordered By: PROVIDER TEMP on 22-06-9765Uylalupioux distribution width (RBC) [Ratio]Erythrocyte distribution width [Ratio] by Automated rycxzKejy25.0-14.8[facility] Erythrocyte distribution width Auto (RBC) [Ratio]Ordered By: Mireya Pichardo on 04-24-9603Hdjcbppmvba distribution width (RBC) [Ratio]Erythrocyte distribution width [Ratio] by Automated bjtprCfjc91.0-14.8[facility] Erythrocytes [#/area] in Urine sediment by Automated countOrdered By: Mireya Pichardo on 38-61-0413IEI Auto (Urine sed) [#/Area]Erythrocytes [#/area] in Urine sediment by Automated count0-4FWVUMedicine Harrison Community HospitalFerritinon 92-77-0031Sfzagbnz [Mass/Vol]368.3 ng/fGYizk95.9-336.2The [facility] Physician GroupComment on above:Result Comment: PERFORMED BY: [place] [address] PATHOLOGIST [employer] DELIV[employer]HICLE TEAM TECHNICIAN JAYLEN BEVERLY M.D.Performed By: #### CBC, CMP, FE and TIBC, JOSSUE #### [place] [address] USAFerritin [Mass/volume] in Serum or PlasmaOrdered By: Mireya Pichardo on 31-85-3169Nfnaxwiw [Mass/Vol]Ferritin [Mass/volume] in Serum or Plasma High23.9-336.2FWVUMedicine Harrison Community HospitalGlobulin Calc (S) [Mass/Vol] Ordered By: Mireya Pichardo on 51-65-6597Onctkwhc (S) [Mass/Vol]Serum globulin measurement by calculation (mass/volume)Providence HospitalGlucose [Mass/volume] in Serum or PlasmaOrdered By: PROVIDER TEMP on 50-48-6390Gcarxlz [Mass/Vol]Glucose [Mass/volume] in Serum or CvfjzwCuhn81-063JprdouwiaProvidence HospitalComment on above:ADA recommended reference rangeRandom Glucose Reference Range is dependent on time and content of last meal. Glucose of more than 200 mg/dL in a nonstressed, ambulatory subject supports the diagnosisof Diabetes Mellitus.Glucose [Mass/volume] in Serum or PlasmaOrdered By: Mireya Pichardo on 86-60-2210Qbnisuc [Mass/Vol]Glucose [Mass/volume] in Serum or Plasma Ftne93-726MqrselncqProvidence HospitalComment on above:ADA recommended reference rangeRandom Glucose Reference Range is dependent on time and content of last meal. Glucose of more than 200 mg/dL in a nonstressed, ambulatory subject supports the diagnosisof Diabetes Mellitus.Glucose [Mass/volume] in Urine by Test stripOrdered By: Mireya Pichardo on 87-47-6560Oimxjlg Test strip (U) [Mass/Vol]Glucose [Mass/volume] in Urine by Test stripNormalProvidence HospitalHematocrit Auto (Bld) [Volume fraction]Ordered By: PROVIDER LUCINA on 06-06-2506Eejykpdkox (Bld) [Volume fraction]Hematocrit [Volume Fraction] of Blood by Automated count38.8-50.0Providence HospitalHematocrit Auto (Bld) [Volume fraction]Ordered By: Mireya Pichardo on 43-96-2459Ttlzfvbcho (Bld) [Volume fraction]Hematocrit [Volume Fraction] of Blood by Automated count 38.8-50.0Providence HospitalHemoglobin A1c/Hemoglobin.total in BloodOrdered By: Juvencio Sanchez on 66-75-9412BiE9h (Bld) [Mass fraction]Hemoglobin A1c percentageHigh4.3-5.6FWVUMedicine Harrison Community HospitalComment on above: Increased risk for diabetes: 5.7 - 6.4diabetes: >6.4glycemic control for adults with diabetes: <7.0Hemoglobin Test strip Ql (U)Ordered By: Mireya Pichardo on 91-44-8433Tejwgxixpp Ql (U)Hemoglobin [Presence] in Urine by Test stripNegative Providence HospitalHemoglobin [Mass/volume] in BloodOrdered By: PROVIDER TEMP on 88-37-8090Fkbfspwopf (Bld) [Mass/Vol]Hemoglobin [Mass/volume] in Blood13.0-17.0Providence HospitalHemoglobin [Mass/volume] in BloodOrdered By: Mireya Pichardo on 39-35-8741Pceknscqpu (Bld) [Mass/Vol]Hemoglobin [Mass/volume] in FuqnnMua90.0-17.0Providence HospitalHyaline casts [#/area] in Urine sediment by Automated countOrdered By: Mrieya Pichardo on 75-81-8531Nycauzp casts Auto (Urine sed) [#/Area]Hyaline casts [#/area] in Urine sediment by Automated countHigh0-8Providence HospitalINR in Platelet poor plasma by Coagulation assayOrdered By: PROVIDER TEMP on 06-18-2024 INR Coag (PPP) [Relative time]INR in Platelet poor plasma by Coagulation assay Providence HospitalComment on above:INR Therapeutic Range A) Pre- and Peroperative OAT started two weeks before surgery. NOT HIP SURGERY: 1.5 - 2.5 HIP SURGERY: 2 - 3B) Primary and secondary prevention of venous THROMBOSIS: 2 - 3C) Active venous thrombosis, pulmonary embolismand prevention of recurrent venous thrombosis: 2 - 3D) Prevention of arterial thromboembolismincluding patients with mechanical heart valves: 3 - 4.5Iron [Mass/volume] in Serum or PlasmaOrdered By: Mireya Pichardo on 68-73-7399Cgkr [Mass/Vol]Iron [Mass/volume] in Serum or OzkwqaUfr17-741NbmhysonxProvidence HospitalIron and TIBC Profileon 06-18-2024% Iron Wjwdrwemih25.9 %Mic53-82Wap [facility] Physician GroupComment on above:Performed By: #### CBC, CMP, FE and TIBC, JOSSUE #### [facility] [address] [place] [id number] USAIron [Mass/Vol]48 ug/qSVvp43-275Wsu [facility] Physician GroupComment on above:Performed By: #### CBC, CMP, FE and TIBC, JOSSUE #### [facility] [address] [place] [address] USATotal Iron Binding Bbfypmjg539 ug/yEQtattc768-402Rak [facility] Physician GroupComment on above:Performed By: #### CBC, CMP, FE and TIBC, JOSSUE #### [facility] [address] [place] [address] USATransferrin [Mass/Vol]203 mg/bOTmtwss227-193Gzb [facility] Physician GroupComment on above:Performed By: #### CBC, CMP, FE and TIBC, JOSSUE #### [facility] [address] [place] [address] USAKetones Test strip Ql (U)Ordered By: Mireya Pichardo on 44-79-3749Rtsrxpf Ql (U)Ketones [Presence] in Urine by Test stripNegative Providence HospitalLeukocyte esterase [Presence] in Urine by Test stripOrdered By: Mireya Pichardo on 08-31-7679Dwfyhqctv esterase Test strip Ql (U) Leukocyte esterase [Presence] in Urine by Test stripNegativeProvidence HospitalLeukocytes [#/area] in Urine sediment by Automated countOrdered By: iMreya Pichardo on 61-45-4909JNY Auto (Urine sed) [#/Area]Leukocytes [#/area] in Urine sediment by Automated count0-4FWVUMedicine Harrison Community HospitalLeukocytes [#/volume] corrected for nucleated erythrocytes in Blood by Automated coun Ordered By: CARIN VERDUGO on 20-15-8030UHC corrected for nucl RBC Auto (Bld) [#/Vol]Leukocytes [#/volume] corrected for nucleated erythrocytes in Blood by Automated counHigh4.1-10.5FWVUMedicine Harrison Community HospitalLeukocytes [#/volume] corrected for nucleated erythrocytes in Blood by Automated counOrdered By: Mireya Pichardo on 17-31-9187ZIT corrected for nucl RBC Auto (Bld) [#/Vol]Leukocytes [#/volume] corrected for nucleated erythrocytes in Blood by Automated counHigh 4.1-10.5FWVUMedicine Harrison Community HospitalLipid Panelon 71-42-6420Ioirnjmqvrj [Mass/Vol]139 mg/lEEmr407-204Rdj [facility] Physician GroupComment on above: Result Comment: Chol less than 200 mg/dl low risk Chol 201-239 mg/dl borderline risk Chol 240 mg/dl and greater high riskPerformed By: #### A1C WTH eA, LIPID #### [facility] [address] [place] [address] USACholesterol in HDL [Mass/Vol]58 mg/yDAdxolx54-20Ssu [facility] Physician GroupComment on above:Result Comment: HDL CHOL ATP-III CLASSIFICATION Cardiovascular Risk HDL > or equal to 60 mg/dL LOW HDL < 40 mg/dL HIGHPerformed By: #### A1C WTEvon Loya, LIPID #### [facility] [address] [place] [address] USACholesterol.total/Cholesterol in HDL [Mass ratio]2.4 {ratio}Normal<5.0The [facility] Physician GroupComment on above:Result Comment: PERFORMED BY: [place] [address] PATHOLOGIST [employer] DELIV[employer] VEHICLE TEAM TECHNICIAN JAYLEN BEVERLY M.D.Performed By: #### A1C WTEvon Loya, LIPID #### [place] [id number] USALDL Cholesterol,Xtwnlztara55 mg/dLNormal0-100The [facility] Physician GroupComment on above:Result Comment: LDL ATP III CLASSIFICATION LDL less than 100 mg/dL Optimal LDL 100-129 mg/dL Near or above optimal LDL 130-159 mg/dL Borderline high LDL 160-189 mg/dL High LDL greater than 189 mg/dL Very highPerformed By: #### A1C WTEvon Loya, LIPID #### [place] [id number] USATriglyceride w/Sersdd436 mg/dLNormal0-149The [facility] Physician GroupComment on above:Result Comment: TRIG ATP III CLASSIFICATION TRIG less than 150 mg/dL Normal TRIG 150-199 mg/dL Borderline high TRIG 200-500 mg/dL High TRIG greater than 500 mg/dL Very high Standard traceable to the Center for Disease Conrtrol and Prevention (CDC) test method.Performed By: #### A1C WTH eA, LIPID #### [facility] [address] [place] [address] USAVLDL VKRYZMCISMZ06 mg/dLNormalThe Former[facility] Physician GroupComment on above:Performed By: #### A1C WTH Vincenzo, LIPID #### [facility] [address] [place] [id number] USALymphocytes Auto (Bld) [#/Vol]Ordered By: PROVIDER TEMP on 57-47-0639Xyojsdbtire (Bld) [#/Vol]Lymphocytes [#/volume] in Blood by Automated count1.00-4.8Providence HospitalLymphocytes Auto (Bld) [#/Vol] Ordered By: Mireya Marino on 06-35-1859Nlpjsrqjawn (Bld) [#/Vol]Lymphocytes [#/volume] in Blood by Automated count1.00-4.8[facility] Lymphocytes/100 WBC Auto (Bld)Ordered By: PROVIDER TEMP on 06-18-2024 Lymphocytes/100 WBC (Bld)Lymphocytes/100 leukocytes in Blood by Automated count. Providence HospitalLymphocytes/100 WBC Auto (Bld)Ordered By: Mireya Edmondsondir on 97-62-7910Kwyfoghrqac/100 WBC (Bld)Lymphocytes/100 leukocytes in Blood by Automated count.[facility] Auto (RBC) [Entitic mass]Ordered By: PROVIDER TEMP on 78-19-6989NZK (RBC) [Entitic mass]MCH [Entitic mass] by Automated count27.5-35.2FUniversity Hospitals Elyria Medical Center Auto (RBC) [Entitic mass]Ordered By: Mireya Edmondsondir on 01-71-7849HPY (RBC) [Entitic mass]MCH [Entitic mass] by Automated count27.5-35.2FSycamore Medical Center Auto (RBC) [Mass/Vol]Ordered By: PROVIDER TEMP on 09-96-0029BYGU (RBC) [Mass/Vol]MCHC [Mass/volume] by Automated count32.5-35.6FS[facility] Auto (RBC) [Mass/Vol]Ordered By: Mireya Marino on 06-18-2024 MCHC (RBC) [Mass/Vol]MCHC [Mass/volume] by Automated count32.5-35.6FWayne HealthCare Main CampusV Auto (RBC) [Entitic vol]Ordered By: PROVIDER TEMP on 68-29-8623OQW (RBC) [Entitic vol]MCV [Entitic volume] by Automated count83.5-101 [facility] HospitalMCV Auto (RBC) [Entitic vol]Ordered By: Mireya Pichardo on 35-58-1410RTX (RBC) [Entitic vol]MCV [Entitic volume] by Automated count83.5-101Providence HospitalMagnesiumon 59-78-9818Kmvtqyqgn [Mass/Vol]2.2 mg/dLNormal1.9-2.7The [facility] Physician GroupComment on above: Performed By: #### A1C WT eA, LIPID #### [facility] [address] [place] [address] USAMagnesium [Mass/volume] in Serum or PlasmaOrdered By: Mireya Pichardo on 70-87-8708Exgdiawyj [Mass/Vol]Magnesium [Mass/volume] in Serum or Plasma1.9-2.7FWVUMedicine Harrison Community HospitalMonocyte distribution width [Entitic volume] in Blood by AutomatedOrdered By: PROVIDER TEMP on 06-18-2024 Monocyte distribution width Auto (Bld) [Entitic vol]Monocyte distribution width [Entitic volume] in Blood by Automated0.00-20.00Prov[facility] HospitalComment on above:For adults in ED, MDW > 20.0 may be associated with a higher risk of sepsis during the first 12 hrs of hospital admissionMonocytes Auto (Bld) [#/Vol]Ordered By: PROVIDER TEMMariangel on 96-93-0568Fdtghzdem (Bld) [#/Vol] Automated blood monocyte countHigh0.0-0.8[facility] Monocytes Auto (Bld) [#/Vol]Ordered By: Mireya Pichardo on 79-98-7388Apvlejlwz (Bld) [#/Vol]Automated blood monocyte countHigh0.0-0.8Prov[facility] HospitalMonocytes/100 WBC Auto (Bld)Ordered By: PROVIDER TEMP on 06-18-2024 Monocytes/100 WBC (Bld)Automated monocyte %.[facility] Monocytes/100 WBC Auto (Bld)Ordered By: Mireya Pichardo on 74-11-6094Hpcufsjrq/100 WBC (Bld)Automated monocyte %.[facility] HospitalMucus [Presence] in Urine by AutomatedOrdered By: Mireya Pichardo on 82-95-7663Cxnak Auto Ql (U)Mucus [Presence] in Urine by AutomatedProvidence HospitalNatriuretic peptide B [Mass/Vol]Ordered By: PROVIDER TEMP on 16-61-4480Hooaxhidqir peptide B (Bld) [Mass/Vol]BNP ser/plasHigh5-100[facility] Neutrophils Auto (Bld) [#/Vol]Ordered By: PROVIDER TEMP on 73-39-5852Ngenxklzrcm (Bld) [#/Vol]Neutrophils [#/volume] in Blood by Automated countHigh1.8-7.7 [facility] HospitalNeutrophils Auto (Bld) [#/Vol]Ordered By: Mireya Pichardo on 81-28-5248Ubtgbtejndw (Bld) [#/Vol]Neutrophils [#/volume] in Blood by Automated countHigh1.8-7.7FWVUMedicine Harrison Community HospitalNeutrophils/100 WBC Auto (Bld)Ordered By: PROVIDER TEMP on 47-65-0557Fqsuaiodjcp/100 WBC (Bld) Automated neutrophil %.[facility] HospitalNeutrophils/100 WBC Auto (Bld)Ordered By: Mireya Pichardo on 19-07-4855Mkkyxoycnkb/100 WBC (Bld)Automated neutrophil %.[facility] HospitalNitrite Test strip Ql (U)Ordered By: Mireya Pichardo on 17-36-8182Etpqioj Ql (U)Nitrite [Presence] in Urine by Test stripNegativeProvidence HospitalNo Panel InformationOrdered By: PROVIDER LUCINA on 41-96-0976Ihgjvugfy GFR (CKD-EPI)38.326 mL/MinProvidence HospitalPharmacy Creatinine Clearance (Chem44.37Providence HospitalNo Panel InformationOrdered By: Mireya Pichardo on 06-18-2024 Estimated GFR (CKD-EPI)46.691 mL/MinProvidence HospitalPharmacy Creatinine Clearance (ChemN/[facility] HospitalNucleated erythrocytes [Presence] in Blood by Automated countOrdered By: PROVIDER TEMP on 97-49-3284Omkjmyzpd RBC Auto Ql (Bld)Nucleated erythrocytes [Presence] in Blood by Automated count0-0.5FWVUMedicine Harrison Community HospitalNucleated erythrocytes [Presence] in Blood by Automated countOrdered By: Mireya Pichardo on 06-18-2024 Nucleated RBC Auto Ql (Bld)Nucleated erythrocytes [Presence] in Blood by Automated count0-0.5FWVUMedicine Harrison Community HospitalParathyrin.intact [Mass/volume] in Serum or PlasmaOrdered By: Mireya Marino on 06-18-2024 Parathyrin.intact [Mass/Vol]Parathyrin.intact [Mass/volume] in Serum or Plasma Providence HospitalParathyroid Hormone Intacton 06-18-2024 Parathyroid Hormone Njkqgm89.3 pg/nTFiqqur74-86Irz [facility] Comment on above:Result Comment: PERFORMED BY: [place] [address] PATHOLOGIST SEAL DELIVERY VEHICLE TEAM TECHNICIAN JAYLEN BEVERLY M.D.Performed By: #### A1C WT Vincenzo, LIPID #### [facility] [address] [place], [place] [address] USAPartial Thromboplastin Timeon 82-89-9406bDMW Coag (Bld) [Time]25.3 hJtrvjq04.1-36.5The Former[facility] Physician GroupComment on above:Result Comment: A hematocrit value greater than 55% may lead to inaccurate results in coagulation testing. Patients having hematocrit values >55% require a special collection tube for coagulation studies. Please contact the laboratory at [phone] for redraw instructions. PERFORMED BY: [address] [place] [id number] PATHOLOGIST SEAL DELIVERY VEHICLE TEAM TECHNICIAN JAYLEN BEVERLY M.D.Performed By: #### A1C WT Vincenzo, LIPID #### [facility] [address] [place] [address] USAPhosphate [Mass/volume] in Serum or PlasmaOrdered By: Mireya Pichardo on 56-20-4456Vzekgaeeg [Mass/Vol]Phosphate [Mass/volume] in Serum or Plasma2.5-4.5FWVUMedicine Harrison Community HospitalPhosphoruson 74-23-6842Sbgegzsyj [Mass/Vol]4.0 mg/dLNormal2.5-4.5The Former[facility] Physician GroupComment on above: Performed By: #### A1C WTH eA, LIPID #### [facility] [address] StreetPlatelet mean volume Auto (Bld) [Entitic vol]Ordered By: PROVIDER TEMP on 07-38-3926Enbtjmye mean volume (Bld) [Entitic vol]Platelet mean volume [Entitic volume] in Blood by Automated count6.6-10.1FWVUMedicine Harrison Community HospitalPlatelet mean volume Auto (Bld) [Entitic vol]Ordered By: Mireya Marino on 03-17-0290Fwocpifm mean volume (Bld) [Entitic vol]Platelet mean volume [Entitic volume] in Blood by Automated count6.6-10.1FWVUMedicine Harrison Community HospitalPlatelets Auto (Bld) [#/Vol]Ordered By: PROVIDER TEMP on 06-18-2024 Platelets (Bld) [#/Vol]Platelets [#/volume] in Blood by Automated qneuj406-789 [facility] HospitalPlatelets Auto (Bld) [#/Vol]Ordered By: Mireya Marino on 23-27-2642Nohcsanac (Bld) [#/Vol]Platelets [#/volume] in Blood by Automated sqfue434-896BhbbbhxzfProvidence HospitalPotassium [Moles/volume] in Serum or PlasmaOrdered By: PROVIDER TEMP on 21-09-4471Xxaprpgly [Moles/Vol] Potassium [Moles/volume] in Serum or Plasma3.5-5.1FWVUMedicine Harrison Community HospitalComment on above:Hemolysis is present at a level that could interfere with the result.Contact lab if redraw is requiredPotassium [Moles/volume] in Serum or PlasmaOrdered By: Mireya Marino on 71-78-4193Kzfvoclzl [Moles/Vol]Potassium [Moles/volume] in Serum or PlasmaHigh3.5-5.1FWVUMedicine [facility] Hospital Protein Creat Ratio Ur Randomon 18-63-5356Vcxoekvpoy, Urine (Random)108.00 mg/dL NormalThe Formerly [facility] Hospital Physician GroupComment on above:Result Comment: No reference range establishedPerformed By: #### A1C WTH eA, LIPID #### [facility] [address] [place] [address] USAProtein (U) [Mass/Vol]32 mg/dLHigh0-9[facility] Physician GroupComment on above:Performed By: #### A1C WTH eA, LIPID #### [facility] [address] [place] [address] USAUrine Protein/Creatinine Oppmi611 mg/g{Cre}High0-200The [facility] Physician GroupComment on above:Result Comment: PERFORMED BY: [place] [address] PATHOLOGIST SEAL DELIVERY VEHICLE TEAM TECHNICIAN JAYLEN BEVERLY M.D.Performed By: #### A1C WTH Vincenzo, LIPID #### [facility] [address] [place] [address] USAProtein Test strip (U) [Mass/Vol]Ordered By: Mireay Pichardo on 67-69-9581Leusmix (U) [Mass/Vol]Protein [Mass/volume] in Urine by Test strip HighNegativeProvidence HospitalProtein [Mass/volume] in Serum or PlasmaOrdered By: Mireya Marino on 79-31-7533Qicxiiu [Mass/Vol]Protein [Mass/volume] in Serum or Plasma6.4-8.9Providence HospitalProtein [Mass/volume] in UrineOrdered By: Mireya Marino on 70-54-6031Lmlgxei (U) [Mass/Vol]Protein [Mass/volume] in UrineHigh0-9[facility] Prothrombin Time INRon 84-87-0921HON Coag (PPP) [Relative time]1.0 {INR}Normal The Former[facility] Physician GroupComment on above:Result Comment: INR Therapeutic Range A) Pre- and Peroperative OAT started two weeks before surgery. NOT HIP SURGERY: 1.5 - 2.5 HIP SURGERY: 2 - 3 B) Primary and secondary prevention of venous THROMBOSIS: 2 - 3 C) Active venous thrombosis, pulmonary embolism and prevention of recurrent venous thrombosis: 2 - 3 D) Prevention of arterial thromboembolism including patients with mechanical heart valves: 3 - 4.5Performed By: #### A1C WTH eA, LIPID #### [facility] [address] [place] [address] USAPT Coag (PPP) [Time]11.3 sNormal9.0-12.9The Former[facility] Physician GroupComment on above:Result Comment: A hematocrit value greater than 55% may lead to inaccurate results in coagulation testing. Patients having hematocrit values >55% require a special collection tube for coagulation studies. Please contact the laboratory at [phone] for redraw instructions.Performed By: #### A1C WTH eA, LIPID #### [facility] [address] [place] [address] USAProthrombin time (PT)Ordered By: PROVIDER TEMP on 29-36-6001WL Coag (PPP) [Time]Prothrombin time (PT)9.0-12.9Providence HospitalComment on above:A hematocrit value greater than 55% may lead to inaccurate results in coagulation testing. Patientshaving hematocrit values >55% require a special collection tube for coagulation studies. Please contact the laboratory at [phone] for redraw instructions.RBC Auto (Bld) [#/Vol]Ordered By: PROVIDER TEMP on 26-92-3584JCZ (Bld) [#/Vol]Erythrocytes [#/volume] in Blood by Automated count3.90-5.60Providence HospitalRBC Auto (Bld) [#/Vol]Ordered By: Mireya Pichardo on 81-16-4502GZB (Bld) [#/Vol]Erythrocytes [#/volume] in Blood by Automated count3.90-5.60[facility] Redraw Potassiumon 10-57-8864Opozfkkit [Moles/Vol]4.8 mmol/LNormal3.5-5.1The Former[facility] Physician GroupComment on above:Result Comment: Hemolysis is present at a level that could interfere with the result. Contact lab if redraw is required PERFORMED BY: [facility] [address] [facility] [place] [address] PATHOLOGIST SEAL DELIVERY VEHICLE TEAM TECHNICIAN JAYLEN BEVERLY M.D.Performed By: #### CBC, CMP, FE and TIBC, JOSSUE #### [facility] [address] [place] [address] USASerum or plasma albumin/globulin mass ratioOrdered By: Mireya Pichardo on 82-39-3787Zcmyxul/Globulin [Mass ratio]Serum or plasma albumin/globulin mass ratioOur Lady of Mercy Hospital - Andersonerum or plasma anion gap determinationOrdered By: PROVIDER LUCINA on 18-27-9784Ojcqn gap [Moles/Vol]Serum or plasma anion gap determinationProvidence HospitalComment on above:Test not performedSerum or plasma anion gap determination Ordered By: Mireya Pichardo on 73-06-2661Xcjut gap [Moles/Vol]Serum or plasma anion gap determination6.0-15.0[facility] - Andersonerum or plasma iron binding capacity measurement (mass/volume)Ordered By: Miryea Pichardo on 06-18-2024 Iron binding capacity [Mass/Vol]Iron binding capacity [Mass/volume] in Serum or Cpljdc379-799GctfsughlOur Lady of Mercy Hospital - Andersonerum or plasma iron saturation measurement (mass fraction)Ordered By: Mireya Pichardo on 23-15-6296Ocyi saturation [Mass fraction]Iron saturation [Mass Fraction] in Serum or GhkleyUml03-76 [facility] - Andersonerum or plasma total cholesterol/high density lipoprotein (HDL) cholesterol mass ratOrdered By: Juvencio Sanchez on 06-18-2024 Cholesterol.total/Cholesterol in HDL [Mass ratio]Serum or plasma total cholesterol/high density lipoprotein (HDL) cholesterol mass rat<5.0[facility] - Andersonodium [Moles/volume] in Serum or PlasmaOrdered By: CARIN VERDUGO on 80-66-4376Knhadq [Moles/Vol]Sodium [Moles/volume] in Serum or Dkkaju712-519UddgpcwwfOur Lady of Mercy Hospital - Andersonodium [Moles/volume] in Serum or PlasmaOrdered By: Mireya Pichardo on 49-20-8783Exbdiw [Moles/Vol]Sodium [Moles/volume] in Serum or Uulknr981-510HjbibgpgxProvidence Hospital Specific gravity Test strip (U) [Rel density]Ordered By: Mireya Pichardo on 27-81-6638Dqfcjuim gravity (U) [Rel density]Specific gravity of Urine by Test strip1.001-1.030Providence HospitalTransferrin [Mass/volume] in Serum or PlasmaOrdered By: Mireya Pichardo on 08-82-6787Tbkekevraeu [Mass/Vol] Transferrin [Mass/volume] in Serum or Lgfwpq960-370LurkzbognProvidence HospitalTriglyceride [Mass/volume] in Serum or PlasmaOrdered By: Juvencio Sanchez on 55-71-1328Pffikcknokib [Mass/Vol]Triglyceride [Mass/volume] in Serum or Plasma 0-149Providence HospitalComment on above:TRIG ATP III CLASSIFICATIONTRIG less than 150 mg/dL NormalTRIG 150-199 mg/dL Borderline highTRIG 200-500 mg/dL High TRIG greater than 500 mg/dL Very highStandard traceable to the Center for Disease Conrtrol and Prevention (CDC) test method. Troponin I High Sensitivityon 51-19-0000Ivynauzf I High Hndlylwahmo3Bjhrox7-86 The [facility] Physician GroupComment on above:Result Comment: The Troponin units of report have been changed to meet the Chest Pain Accreditation requirement, element EC5.M1l2. Troponin units are changed from pg/ml to ng/L. Also, the decimal is removed and results are in whole numbers. PERFORMED BY: [place] [address] PATHOLOGIST SEAL DELIVERY VEHICLE TEAM TECHNICIAN JAYLEN BEVERLY M.D.Performed By: #### EMERALD HOROWITZ #### [facility] [address] [place] [address] USATroponin I High Bovyvszkoph9Vjrztb8-55Qbt [facility] Physician [facility] HospitalComment on above:Result Comment: The Troponin units of report have been changed to meet the Chest Pain Accreditation requirement, element EC5.M1l2. Troponin units are changed from pg/ml to ng/L. Also, the decimal is removed and results are in whole numbers. PERFORMED BY: [place] [address] PATHOLOGIST SEAL DELIVERY VEHICLE TEAM TECHNICIAN JAYLEN BEVERLY M.D.Performed By: #### A1C WT eA, LIPID #### [facility] [address] [place] [address] USATroponin I.cardiac [Mass/volume] in Serum or Plasma by Detection limit <= 0.01 ng/Ordered By: Alanna Tidwell on 56-14-4697Sjffbsbo I.cardiac DL <= 0.01 ng/mL [Mass/Vol]Troponin I.cardiac [Mass/volume] in Serum or Plasma by Detection limit <= 0.01 ng/0-20[facility] Comment on above:The Troponin units of report have been changed to meet the Chest Pain Accreditation requirement, element EC5.M1l2. Troponin units are changed from pg/ml to ng/L. Also, the decimal is removed and results are in whole numbers.Urate [Mass/volume] in Serum or PlasmaOrdered By: Mireya Pichardo on 97-88-7727Pdion [Mass/Vol]Urate [Mass/volume] in Serum or Plasma4.4-7.6FWVUMedicine Harrison Community HospitalUrea nitrogen [Mass/volume] in Serum or PlasmaOrdered By: CARIN VERDUGO on 67-13-2200Wwoj nitrogen [Mass/Vol]Urea nitrogen [Mass/volume] in Serum or PlasmaHigh7-25Providence HospitalUrea nitrogen [Mass/volume] in Serum or PlasmaOrdered By: Mireya Pichardo on 06-18-2024 Urea nitrogen [Mass/Vol]Urea nitrogen [Mass/volume] in Serum or PlasmaHigh7-25 Providence HospitalUric Acidon 26-60-5645Ikmov [Mass/Vol]7.1 mg/dL Normal4.4-7.6The [facility] Physician GroupComment on above:Performed By: #### A1C [facility], LIPID #### [address] StreetUrine protein/creatinine ratioOrdered By: Mireya Pichardo on 59-95-8526Ewykkcg/Creatinine (U) [Ratio]Urine protein/creatinine ratioHigh0-200 Providence HospitalUrobilinogen Test strip (U) [Mass/Vol]Ordered By: Mireya Pichardo on 29-48-8944Gcyoyafbnvqg (U) [Mass/Vol]Urobilinogen [Mass/volume] in Urine by Test stripNormalProvidence Hospital Vitamin D 25 Hydroxy Totalon 68-18-4232Bmszqza D 25 Hydroxy Total34.8 ng/mL Mgbqqb82-654Czj [facility] Physician GroupComment on above:Result Comment: VITAMIN D STATUS 25(OH)VITAMIN D RANGE (ng/mL) Deficient <20 Insufficient 20 to <30 Sufficient 30 to 100 Reference: Daniela Hook, Anastasiia CONLEY, et al. Evaluation,treatment, and prevention of vitamin D deficiency; an Endocrine Society clinical practice guideline. JCEM. 2010; 96(7):1911-30. PERFORMED BY: [facility] [address] [place] [address] PATHOLOGIST SEAL DELIVERY VEHICLE TEAM TECHNICIAN JAYLEN BEVERLY M.D.Performed By: #### CBC, CMP, FE and TIBC, JOSSUE #### [facility] [address] [place] [id number] USAVitamin D+Metabolites [Mass/volume] in Serum or Plasma Ordered By: Mireya Pichardo on 95-03-0421Jrplepm D+Metabolites [Mass/Vol]Vitamin D+Metabolites [Mass/volume] in Serum or Mifvlp97-000EwfwshgtkProvidence HospitalComment on above:VITAMIN D STATUS 25(OH)VITAMIN D RANGE (ng/mL) Deficient <20 Insufficient 20 to <90Vrtrpyajhw37 to 100Reference: Daniela Hook, Anastasiia CONLEY, et al. Evaluation,treatment, and prevention of vitamin D deficiency; an Endocrine Society clinical practice guideline. JCEM. 2010; 96 (7):1911-30.WBC Auto (Bld) [#/Vol]Ordered By: CARIN VERDUGO on 96-61-7276PNH (Bld) [#/Vol]Leukocytes [#/volume] in Blood by Automated countHigh4.1-10.5 [facility] HospitalWBC Auto (Bld) [#/Vol]Ordered By: Mireya Pichardo on 91-03-3744SGD (Bld) [#/Vol]Leukocytes [#/volume] in Blood by Automated count High4.1-10.5FWVUMedicine Harrison Community HospitalX-ray reportOrdered By: Michael Ferrer on 47-66-7090Mcymd reportMARTINS FERRY [facility] [address] [place] [address] [place] [address] XRay Report Signed Patient: Indiana Hines MR#: [id number] : 1945 Acct:[id number] Age/Sex: 78 / M ADM Date: 5 Loc: ER Room: Type: [facility] ER Attending Dr: Copies to: Alanna Tidwell MD~ Ordering Provider: Alanna Tidwell MD Date of Service: 06/18/24 XR/XR chest 1V portable: Recheck/Abnormal Lab/Rx Plain film chest Single view HISTORY: Fatigue. COMPARISON: 06/27/2023 FINDINGS: SUPPORT DEVICES: None POSTSURGICAL CHANGES: None HEART: Within normal limits PULMONARY GERMAN: Within normal limits MEDIASTINUM: Unremarkable LUNGS AND PLEURA: No acute lung process, pleural effusion or pneumothorax identified. Minor interstitial changes BONY STRUCTURES: Degenerative change ADDITIONAL FINDINGS None XR/XR chest 1V portable IMPRESSION: No acute process. Impression dictated by: Michael Ferrer M.D. 06/18/2024 6:20 PM Dictation Location: [employer] Transcribed By: [facility] 06/18/241819 Dictated By: Michael Ferrer DO 06/18/24 173 Signed By: 06/18/24 1820 [facility] HospitalXR chest 1V portableon 72-22-6516AX chest 1V portableMARTINS [place] [address] XRay Report Signed Patient: Indiana Hines MR#: [id number] 19 : 1945 Acct:[id number] Age/Sex: 78 / M ADM Date: 06/18/24 Loc: ER Room: Type: [facility] ER Attending Dr: Copies to: Alanna Tidwell MD Ordering Provider: Alanna Tidwell MD Date of Service: 06/18/24 XR/XR chest 1V portable: Recheck/Abnormal Lab/Rx Plain film chest Single view HISTORY: Fatigue. COMPARISON: 06/27/2023 FINDINGS: SUPPORT DEVICES: None POSTSURGICAL CHANGES: None HEART: Within normal limits PULMONARY GERMAN: Within normal limits MEDIASTINUM: Unremarkable LUNGS AND PLEURA: No acute lung process, pleural effusion or pneumothorax identified. Minor interstitial changes BONY STRUCTURES: Degenerative change ADDITIONAL FINDINGS None XR/XR chest 1V portable IMPRESSION: No acute process. Impression dictated by: Michale Ferrer M.D. 06/18/2024 6:20 PM Dictation Location: [facility] Transcribed By: [facility] 06/18/241819 Dictated By: Michael Ferrer DO 06/18/24 1739 Signed By: 06/18/24 1820[facility] Physician GroupaPTT in Platelet poor plasma by Coagulation assayOrdered By: PROVIDER TEMP on 57-08-4538jZHQ Coag (PPP) [Time] Activated partial thromboplastin time (aPTT) in platelet poor plasma by coagulation a25.1-36.5FWVUMedicine Harrison Community HospitalComment on above:A hematocrit value greater than 55% may lead to inaccurate results in coagulation testing. Patientshaving hematocrit values >55% require a special collection tube for coagulation studies. Please contact the laboratory at [phone] for redraw instructions.pH Test strip (U)Ordered By: Mireya Pichardo on 60-10-3055wM (U) pH of Urine by Test strip5.0-9.0Providence HospitalFPG ECG *CARDIOLOGY ONLY*on 49-00-0397DXB ECG *CARDIOLOGY ONLY*[facility] [address] [place] [address] [place] [address] Electrocardiograph Report Signed Patient: Indiana Hines MR#: [id number] [birth year] : 1945 Acct:[id number] Age/Sex: 78 / M ADM Date: 05/20/24 Loc: [facility] Room: Type: [facility] Attending Dr: Radha Ames MD Ordering Provider: Radha Ames MD Date of Service: 05/20/24 ECG/FPG ECG *CARDIOLOGY ONLY*: I48.91 - Unspecified atrial fibrillation Copies to: Test Reason : Blood Pressure : */* mmHG Vent. Rate : 63 BPM Atrial Rate : 63 BPM P-R Int : 218 ms QRS Dur : 90 ms QT Int : 440 ms P-R-T Axes : 85 -23 46 degrees QTcB Int : 450 ms Sinus rhythm with 1st degree AV block Low voltage QRS Borderline ECG Confirmed by Radha Ames ([id number]) on 05/20/2024 3:39:15 PM Referred By: Electronically Signed By: Radha Ames Transcribed By: MUS Signed By Radha Ames MD 5 1539[facility] Physician GroupUroVysion Fish and Urine Cyto ( Labs) on 70-84-3935KJUSYA & UCDiagnosis InfoInvalid Interpretation CodeTuscarawas HospitalComment on above:Result Comment: A:Urine,Bladder Wash:Bladder Wash Diagnosis Summary - Negative for dysplastic cells or malignancy. Reactive urothelial cells present.Adequate cellularity for evaluation. Diagnosis Summary - The UroVysion FISH study detected normal copy numbers for chromosomes 3, 7, 17,and 9p21. No evidence of aneuploidy for chromosomes 3, 7, or 17 or deletion of the 9p21 locus was found in cells present in this specimen. These findings should be correlated with cytology and cystoscopy results.* Microscopic Notes - Microscopic Notes - Abnormal cells 9p21 deletions: Abnormal cells aneploid events: Total cells analyzed: Hematuria: Gross Description Site ID:A color Yellow fixative Alcohol Received 110 mls of clear yellow fluid with the patient's name and, Bladder Wash on the vial. Electronically signed by : on: 04/03/2024 08:43:00Performed By: #### [id number] #### [facility] [address] [place] [id number] By: SYSTEM SYSTEM on 07-67-9512Vravdqub specific Ag [Mass/Vol]3.4 ng/mLNormal0.1 - 3.5 ng/mLRemisol ChemComment on above:Interpretive Data: The concentration of PSA determined by different manufacturers can vary due to differences in assay methods and reagent specificity. Values obtained from different assay methods cannot be used interchangeably. The methodology used for this result was chemiluminescence using [employer]'s Access Hybritech PSA reagent.PSA Totalon 03-27-2024 Prostate specific Ag [Mass/Vol]3.4 ng/mLNormal0.1-3.5[facility] Comment on above:Result Comment: The concentration of PSA determined by different manufacturers can vary due to differences in assay methods and reagent specificity. Values obtained from different assay methods cannot be used interchangeably. The methodology used for this result was chemiluminescence using [employer]'s Access Hybritech PSA reagent.Performed By: #### [id number] #### [facility] [address] [place] [id number] 33-89-9720DvdsxidbzAlwawhkhr From: Nevaeh Arias To: EU - Mc Torres; Sent: 03/27/2024 08:28:32 EST Show up: 01/06/2025 08:28:00 EST Subject: cysto/fish/cytol Due Date/Time: 02/03/2025 08:28:00 EST Reminder/Recall Patient is due in Mar 2025 for 1 year cysto/fish/cytol, bt [facility] HospitalUroVys[facility] Fish and Urine Cyto ([facility])on 03-96-3991JMKG Method of ExtractionBladder [facility] HospitalComment on above: Performed By: #### [id number] #### [facility] [address] [place] [address] [id number] Number of [id number] Interpretation CodeTuscarawas HospitalComment on above:Performed By: #### [id number] #### [facility] [address] [place] [address] [id number] SpecimenBladder [facility] Comment on above:Performed By: #### [id number] #### [facility] [address] [place] [address] [id number] Type of ServiceTechnical OnlyOhio State Health SystemComment on above:Performed By: #### [id number] #### [facility] [address] [place] [address] [id number] Office/Clinic Noteon 21-56-2631Fbbdnur Office/Clinic NoteUrology Office/Clinic Note Chief Complaint Cysto HPI Staff Cysto ABX TAKEN, need Fish/cytol History of Present Illness Tests reviewed: I have reviewed the previous health record information and history for this patient from Dr. Torres. I have reviewed and verified the staff HPI to be accurate for this encounter. Review of Systems PHQ Score Initial Depression Screen Score: 0 SCORE ROS - Provider Constitutional: denies weight loss, denies hot flashes. Eyes: denies eye problems. Gastrointestinal: denies nausea, denies vomiting. Cardiovascular: denies chest pain or angina. Integumentary: no dryness Musculoskeletal: denies musculoskeletal symptoms. ENMT: denies otolaryngeal symptoms. Respiratory: no shortness of breath. Heme/Lymph: denies easy bleeding tendency, denies easy bruising tendency. Psychiatric: no confusion, no anxiety. Genitourinary: See HPI. Physical Exam Vitals & Measurements HR: 72(Peripheral) BP: 138/78 HT: 72 in HT: 184 cm WT: 114 kg WT: 251.327 lb BMI: 33.67 General Appearance: alert, no distress, well nourished, well developed male. Procedure Operative Information Anesthesia Type: Local Procedure: Local Cystoscopy Complications: None Surgical risks, benefits, details of the procedure have been explained to the patient. Full informed consent has been obtained. Intraoperative Information Prepped: Patient is brought back to the endoscopy suite. Patient is placed in supine position. Patient prepped in the usual fashion with Betadine solution. 2% Xylocaine Jelly is placed per Urethra. After waiting several minutes, the Cystoscope is introduced. The Urethra is: Normal The Prostatic Urethra is: _Bilobar obstruction. The Bladder: _No evidence of tumor formation or mucosal lesions. Trabeculated: Severe (3) with opendiverticuli formation. The Ureteral orifices: Show efflux of clear urine Specimens Removed: Bladder wash sent for FISH and Cytology test Removal: Cystoscope is removed. The patient tolerated it well. Postoperative Information Patient is discharged home with antibiotic coverage. Follow up arranged. Assessment/Plan 1. History of bladder cancer (Z85.51: Personal history of malignant neoplasm of bladder) Original TURBT by Dr. Juares 03/11/20 - High grade papillary urothelial neoplasm, noninvasive. A small fragment of detrusor muscles is present and neg. G3 TA TCC. TURBT, mitomycin instillation by Dr. Juares 04/08/20 - Neg for malignancy. Bladder mucosa with acuteinflammation and increased eosinophils. Detrusor muscle is present. BCG #6/6 (full doses) 10/14/20. Cysto, bladder bx, fulguration of tumor base, resection of tumors x 3 12/01/20 - Polypoid urothelial mucosa with focal reactive hyperplasia. No dysplasia or malignancy id'd. Path report from 03/11/21 showed right bladder wall tumor, high grade papillary urothelial neoplasm, noninvasive. (? confirm what this is from) FISH 03/17/21 - Positive. BCG #3/3 (full doses) 10/20/21. BCG #3/3 (half doses) 10/05/22. Last cysto 09/19/23. FISH neg. BCG #3/3 (half doses) 12/11/23. Pt had 6 mo IO cysto to check for bladder tumor recurrence without complications today. Pt took prophylactic abx prior to procedure. Will send bladder wash specimen for FISH/cytol and call pt if positive. Follow up 6 mos surveillance cysto/bt ck/FISH/cytol or sooner if needed. Pt understands and agrees with plan. 2. Prostate cancer (C61: Malignant neoplasm of prostate) ACTIVE SURVEILLENCE PSA: 06/13/20 - 1.98 06/02/21 - 2.71 08/31/22 - 2.40 & 21% 03/07/23 - 2.30 Prostate MRI 01/2020, PI - RADS II. TRUS/bx 12/17/19 - G6 (3+3) x 1 core (LLB), 6% of core involved by tumor. -PSA to be drawn IO today. 3. BPH with urinary obstruction (N40.1: Benign prostatic hyperplasia with lower urinary tract symptoms) Discussed oral med to help with AMBROSE sxs. Pt elects to try Flomax. -Start Flomax 0.4 mg qd. SEs discussed. Stop taking and notify office if experiencing persistent dizziness/lightheadedness. Sent to [facility]. Follow-up With When Contact Information MELISSA THORNTON, Akbar Bassett, [facility] [address], [facility] [place] [address]- Additional Instructions: 6 mos surveillance cysto/bt ck/FISH/cytol Patient Education Cancer Screening for Males I, Kathie Varela, personally scribed for Dr. Torres on 03/27/2024 08:23:37. . Documentation recorded by the scribe, Kathie Varela, accurately reflects the services(s) I performed and decisions made by me. Authenticated by Dr. Torres on 03/27/2024 08:26:02. Problem List/Past Medical History Ongoing Arthritis BMI 34.0-34.9,adult BPH with urinary obstruction CKD (chronic kidney disease) History of bladder cancer Hyperlipidemia Hypertension Incomplete bladder emptying Increased prostate specific antigen (PSA) velocity Nocturia Post-void dribbling Prostate cancer Prostate nodule Testicular atroph (more content not included)...[facility] State Health SystemComment on above:Result Comment: Electronically Signed By: Akbar TORRES MD\.br\Date and Time Signed: 03/27/24 08:26 EST\.br\Electronically Co- Signed By: Kathie Varela\.br\Date and Time Co-Signed: 03/27/24 08:23 EST Basophils Auto (Bld) [#/Vol]Ordered By: Altaf Das on 86-87-3108Koarjdqak (Bld) [#/Vol]Automated basophil count0.0-0.2FWVUMedicine Harrison Community Hospital Basophils/100 WBC Auto (Bld)Ordered By: Altaf Das on 02-27-2024 Basophils/100 WBC (Bld)Automated basophil %.Providence HospitalCT guided bone marrow bx/aspiron 32-31-2358AK guided bone marrow bx/aspirMARTINS [place] [address] CT Scan Report Signed Patient: Indiana Hines MR#: [id number] [birth year] : 1945 Acct:[id number] Age/Sex: 78 / M ADM Date: 02/27/24 Loc: CT Room: Type: [facility] Attending Dr: Altaf Das MD Copies to: Altaf Das MD Ordering Provider: Altaf Das MD Date of Service: 02/27/24 CT/CT guided bone marrow bx/aspir: 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 The patient was placed prone on the CT table and the right iliac bone was selected for biopsy. The skin over the pelvis was prepped and draped in normal sterile fashion. 1% lidocaine was utilized for local anesthesia. Utilizing CT guidance, an 11-gauge OnControl biopsy needle was advanced into the right iliac bone. 12mL of bone marrow was aspirated and given to pathology. After the sample was deemed adequate by pathology, a core biopsy was obtained and needle was withdrawn. Hemostasis was achieved. Bandage was applied. The patient tolerated procedure well without immediate complication. Please note that the patient was monitored throughout the procedure by nursing personnel. This CT exam was performed using one or more following dose reduction techniques: Automated exposure control, adjustment of the mA and/or kV according to patient size, or use of iterative reconstruction technique. CT/CT guided bone marrow bx/aspir IMPRESSION: Successful CT-guided bone marrow biopsy. Impression dictated by: Allan Cruz Jr., D.O.02/27/2024 10:22 AM Dictation Location: [place] [address] Transcribed By: [facility] 02/27/24 1022 Dictated By: Allan Cruz Jr, DO 02/27/24 1021 Signed By: 02/27/24 1022NormUCHealth Greeley HospitalCoagulation Profileon 02-27-2024 aPTT Coag (Bld) [Time]31.0 yAywory58.1-36.5The Bryn Mawr Rehabilitation HospitalComment on above:Order Comment: STAT FOR BXResult Comment: A hematocrit value greater than 55% may lead to inaccurate results in coagulation testing. Patients having hematocrit values >55% require a special collection tube for coagulation studies. Please contact the laboratory at [phone] for redraw instructions. PERFORMED BY: [address] [address] PATHOLOGIST SEAL DELIVERY VEHICLE TEAM TECHNICIAN JAYLEN BEVERLY M.D.Performed By: #### CBC, CMP, FE and TIBC, JOSSUE #### [place] [address] USAINR Coag (PPP) [Relative time]1.0 {INR}NormalThe [facility] Physician [facility] General HospitalComment on above:Order Comment: STAT FOR BXResult Comment: INR Therapeutic Range A) Pre- and Peroperative OAT started two weeks before surgery. NOT HIP SURGERY: 1.5 - 2.5 HIP SURGERY: 2 - 3 B) Primary and secondary prevention of venous THROMBOSIS: 2 - 3 C) Active venous thrombosis, pulmonary embolism and prevention of recurrent venous thrombosis: 2 - 3 D) Prevention of arterial thromboembolism including patients with mechanical heart valves: 3 - 4.5Performed By: #### CBC, CMP, FE and TIBC, JOSSUE #### [place] [address] USAPT Coag (PPP) [Time]11.1 sNormal9.0-12.9The [facility] Physician GroupComment on above:Order Comment: STAT FOR BXResult Comment: A hematocrit value greater than 55% may lead to inaccurate results in coagulation testing. Patients having hematocrit values >55% require a special collection tube for coagulation studies. Please contact the laboratory at [phone] for redraw instructions.Performed By: #### CBC, CMP, FE and TIBC, JOSSEU #### [place] [address] USAComplete Blood Count Auto Diffon 70-49-2837Klrcfvefb (Bld) [#/Vol]0.1 10*3/uLNormal0.0-0.2The [facility] Physician [facility] HospitalComment on above: Order Comment: STAT FOR BXResult Comment: PERFORMED BY: [place] [address] PATHOLOGIST SEAL DELIVERY VEHICLE TEAM TECHNICIAN JAYLEN BEVERLY M.D.Performed By: #### CBC, CMP, FE and TIBC, JOSSUE #### [place] [address] USABasophils/100 WBC (Bld)1.1 %Normal.The [facility] Physician GroupComment on above:Order Comment: STAT FOR BXPerformed By: #### CBC, CMP, FE and TIBC, JOSSUE #### [place] [address] USAEosinophils (Bld) [#/Vol]0.3 10*3/uLNormal0.0-0.45The [facility] Physician GroupComment on above:Order Comment: STAT FOR BXPerformed By: #### CBC, CMP, FE and TIBC, JOSSUE #### [place] [address] USAEosinophils/100 WBC (Bld)5.4 %Normal.The [facility] Physician GroupComment on above:Order Comment: STAT FOR BXPerformed By: #### CBC, CMP, FE and TIBC, JOSSUE #### [place] [address] USAErythrocyte distribution width (RBC) [Ratio]15.2 %High 12.0-14.8The [facility] Physician GroupComment on above:Order Comment: STAT FOR BXPerformed By: #### CBC, CMP, FE and TIBC, JOSSUE #### [place] [address] USAHematocrit (Bld) [Volume fraction]36.5 %Low38.8-50.0The [facility] Physician GroupComment on above:Order Comment: STAT FOR BXPerformed By: #### CBC, CMP, FE and TIBC, JOSSUE #### [place] [address] USAHemoglobin (Bld) [Mass/Vol]12.1 g/dLLow13.0-17.0The [facility] Physician GroupComment on above:Order Comment: STAT FOR BXPerformed By: #### CBC, CMP, FE and TIBC, JOSSUE #### [place] [address] USALymphocytes (Bld) [#/Vol]1.3 10*3/uLNormal1.00-4.8The [facility] Physician GroupComment on above:Order Comment: STAT FOR BXPerformed By: #### CBC, CMP, FE and TIBC, JOSSUE #### [place] [address] USALymphocytes/100 WBC (Bld)20.7 %Normal.The [facility] Physician GroupComment on above:Order Comment: STAT FOR BXPerformed By: #### CBC, CMP, FE and TIBC, JOSSUE #### [place] [address] USAMCH (RBC) [Entitic mass]29.8 naOkrmzr44.5-35.2The [facility] Physician GroupComment on above:Order Comment: STAT FOR BXPerformed By: #### CBC, CMP, FE and TIBC, JOSSUE #### [facility] [address]V (RBC) [Entitic vol]90.0 tXEechor61.5-101The [facility] Physician GroupComment on above:Order Comment: STAT FOR BXPerformed By: #### CBC, CMP, FE and TIBC, JOSSUE #### [facility] [address] [place] [address] USAMean Corpuscular HGB Conc33.2 g/sQOorawu46.5-35.6The [facility] Physician GroupComment on above:Order Comment: STAT FOR BXPerformed By: #### CBC, CMP, FE and TIBC, JOSSUE #### [facility] [address] [place] [address] USAMonocytes (Bld) [#/Vol]0.9 10*3/uLHigh0.0-0.8The [facility] Physician GroupComment on above:Order Comment: STAT FOR BXPerformed By: #### CBC, CMP, FE and TIBC, JOSSUE #### [facility] [address] [place] [address] USAMonocytes/100 WBC (Bld)14.7 %Normal.The [facility] Physician GroupComment on above:Order Comment: STAT FOR BXPerformed By: #### CBC, CMP, FE and TIBC, JOSSUE #### [facility] [address] [place] [address] USANeutrophils (Bld) [#/Vol]3.7 10*3/uLNormal1.8-7.7The [facility] Physician GroupComment on above:Order Comment: STAT FOR BXPerformed By: #### CBC, CMP, FE and TIBC, JOSSUE #### [facility] [address] [place] [address] USANeutrophils/100 WBC (Bld)58.1 %Normal.The [facility] Physician GroupComment on above:Order Comment: STAT FOR BXPerformed By: #### CBC, CMP, FE and TIBC, JOSSUE #### [facility] [address] [place] [address] USANRBC%0.0 /100{WBC}Normal0-0.5The [facility] Physician Group Comment on above:Order Comment: STAT FOR BXPerformed By: #### CBC, CMP, FE and TIBC, JOSSUE #### [place] [address] USAPlatelet mean volume (Bld) [Entitic vol]8.4 fLNormal 6.6-10.1The [facility] Physician GroupComment on above:Order Comment: STAT FOR BX Performed By: #### CBC, CMP, FE and TIBC, JOSSUE #### [place] [address] USAPlatelets (Bld) [#/Vol]200 10*3/wKEwrhzu867-723Tdx [facility] Physician GroupComment on above:Order Comment: STAT FOR BXPerformed By: #### CBC, CMP, FE and TIBC, JOSSUE #### [place] [address] USARBC (Bld) [#/Vol]4.06 10*6/uLNormal3.90-5.60The [facility] Physician GroupComment on above:Order Comment: STAT FOR BXPerformed By: #### CBC, CMP, FE and TIBC, JOSSUE #### [place] [address] USAWBC (Bld) [#/Vol]6.3 10*3/uLNormal4.1-10.5The [facility] Physician GroupComment on above:Order Comment: STAT FOR BXPerformed By: #### CBC, CMP, FE and TIBC, JOSSUE #### [place] [address] USAEosinophils Auto (Bld) [#/Vol]Ordered By: Altaf Das on 32-69-8972Bcjkavksnil (Bld) [#/Vol]Automated eosinophil count0.0-0.45 Providence HospitalEosinophils/100 WBC Auto (Bld)Ordered By: Altaf Das on 82-62-8232Exmnqqtcoai/100 WBC (Bld)Automated eosinophil %. [facility] HospitalErythrocyte distribution width Auto (RBC) [Ratio]Ordered By: Altaf Das on 92-79-8254Sghqlozxdle distribution width (RBC) [Ratio]Erythrocyte distribution width [Ratio] by Automated countHigh 12.0-14.8Providence HospitalHematocrit Auto (Bld) [Volume fraction]Ordered By: Altaf Das on 89-08-4140Xlzxqkpxic (Bld) [Volume fraction]Hematocrit [Volume Fraction] of Blood by Automated sffsyPza33.8-50.0 Providence HospitalHemoglobin [Mass/volume] in BloodOrdered By: Altaf Das on 17-52-6195Rpyiiwzzvu (Bld) [Mass/Vol]Hemoglobin [Mass/volume] in GflhhQyg09.0-17.0Providence HospitalINR in Platelet poor plasma by Coagulation assayOrdered By: Altaf Das on 91-97-4904ELB Coag (PPP) [Relative time]INR in Platelet poor plasma by Coagulation assayProvidence HospitalComment on above:INR Therapeutic Range A) Pre- and Peroperative OAT started two weeks before surgery. NOT HIP SURGERY: 1.5 - 2.5 HIP SURGERY: 2 - 3B) Primary and secondary prevention of venous THROMBOSIS: 2 - 3C) Active venous thrombosis, pulmonary embolismand prevention of recurrent venous thrombosis: 2 - 3D) Prevention of arterial thromboembolismincluding patients with mechanical heart valves: 3 - 4.5Leukocytes [#/volume] corrected for nucleated erythrocytes in Blood by Automated counOrdered By: Altaf Das on 44-39-9911KWN corrected for nucl RBC Auto (Bld) [#/Vol]Leukocytes [#/volume] corrected for nucleated erythrocytes in Blood by Automated coun4.1-10.5FWVUMedicine Harrison Community HospitalLymphocytes Auto (Bld) [#/Vol]Ordered By: Altaf Das on 16-34-2228Dvyzttqcypl (Bld) [#/Vol]Lymphocytes [#/volume] in Blood by Automated count1.00-4.8Providence HospitalLymphocytes/100 WBC Auto (Bld)Ordered By: Altaf Das on 79-43-3764Kagqulfsfqn/100 WBC (Bld) Lymphocytes/100 leukocytes in Blood by Automated count.Providence HospitalMCH Auto (RBC) [Entitic mass]Ordered By: Altaf Das on 62-63-9476GAS (RBC) [Entitic mass]MCH [Entitic mass] by Automated count27.5-35.2 Providence HospitalMCHC Auto (RBC) [Mass/Vol]Ordered By: Altaf Yun on 07-08-8022YMSL (RBC) [Mass/Vol]MCHC [Mass/volume] by Automated count 32.5-35.6FWVUMedicine Harrison Community HospitalMCV Auto (RBC) [Entitic vol]Ordered By: Altaf Das on 28-95-8964JBT (RBC) [Entitic vol]MCV [Entitic volume] by Automated count83.5-101Providence HospitalMonocytes Auto (Bld) [#/Vol]Ordered By: Altaf Das on 16-23-6369Wiqcyzcgz (Bld) [#/Vol]Automated blood monocyte countHigh0.0-0.8Providence HospitalMonocytes/100 WBC Auto (Bld)Ordered By: Altaf Das on 16-33-1652Xxeczrfna/100 WBC (Bld) Automated monocyte %.Providence HospitalNeutrophils Auto (Bld) [#/Vol]Ordered By: Altaf Das on 51-44-7204Dkqfxiogobf (Bld) [#/Vol] Neutrophils [#/volume] in Blood by Automated count1.8-7.7FWVUMedicine Harrison Community HospitalNeutrophils/100 WBC Auto (Bld)Ordered By: Altaf Das on 84-67-1211Vgrrrzeehdk/100 WBC (Bld)Automated neutrophil %.Providence HospitalNo Panel InformationOrdered By: Altaf Das on 02-27-2024 Miscellaneous Pathology TestSee commentProvidence HospitalComment on above:See report. Scanned copy available in EMR.Nucleated erythrocytes [Presence] in Blood by Automated countOrdered By: Altaf Das on 02-27-2024 Nucleated RBC Auto Ql (Bld)Nucleated erythrocytes [Presence] in Blood by Automated count0-0.5FWVUMedicine Harrison Community HospitalPathology Request for Lab Corpon 67-46-4238Vtrviuica Request for Lab CorpNormalThWeiser Memorial Hospital Physician GroupComment on above:Result Comment: See report. Scanned copy available in EMR. PERFORMED BY: [facility] [address] [place] [address] PATHOLOGIST SEAL DELIV[employer] VEHICLE TEAM TECHNICIAN JAYLEN BEVERLY M.D.Performed By: #### CBC, CMP, FE and TIBC, JOSSUE #### [facility] [address] [place] [address] USAPlatelet mean volume Auto (Bld) [Entitic vol]Ordered By: Altaf Das on 97-34-4109Ncnmagao mean volume (Bld) [Entitic vol]Platelet mean volume [Entitic volume] in Blood by Automated count6.6-10.1FWVUMedicine Harrison Community HospitalPlatelets Auto (Bld) [#/Vol]Ordered By: Altaf Das on 77-88-2178Zefjumscz (Bld) [#/Vol]Platelets [#/volume] in Blood by Automated keeux079-915FsuybfedpProvidence HospitalProthrombin time (PT)Ordered By: Altaf Das on 31-18-6202WX Coag (PPP) [Time]Prothrombin time (PT)9.0-12.9 Providence HospitalComment on above:A hematocrit value greater than 55% may lead to inaccurate results in coagulation testing. Patientshaving hematocrit values >55% require a special collection tube for coagulation studies. Please contact the laboratory at [phone] for redraw instructions. RBC Auto (Bld) [#/Vol]Ordered By: Altaf Das on 01-01-1987ROL (Bld) [#/Vol] Erythrocytes [#/volume] in Blood by Automated count3.90-5.60Providence HospitalWBC Auto (Bld) [#/Vol]Ordered By: Altaf Das on 97-40-1821OJP (Bld) [#/Vol]Leukocytes [#/volume] in Blood by Automated count4.1-10.5FWVUMedicine Harrison Community HospitalaPTT in Platelet poor plasma by Coagulation assayOrdered By: Altaf Das on 18-02-4714aKMR Coag (PPP) [Time]Activated partial thromboplastin time (aPTT) in platelet poor plasma by coagulation a25.1-36.5 Providence HospitalComment on above:A hematocrit value greater than 55% may lead to inaccurate results in coagulation testing. Patientshaving hematocrit values >55% require a special collection tube for coagulation studies. Please contact the laboratory at [phone] for redraw instructions. XR bone surveyon 73-50-2008IS bone surveyMARTINS [place] [address] XRay Report Signed Patient: Indiana Hines MR#: [id number] [birth year] : 1945 Acct:[id number] Age/Sex: 78 / M ADM Date: 02/02/24 Loc: Room: Type: [facility] Attending Dr: Altaf Das MD Copies to: Altaf Das MD Ordering Provider: Altaf Das MD Date of Service: 02/02/24 XR/XR bone survey: R80.3 - Bence Long proteinuria Plain films bony survey HISTORY: Proteinuria No lytic lesion. 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 Right hip arthroplasty. Cervical spine fixation hardware. No acute chest findings. Moderate stool. Atherosclerosis. Bilateral knee arthroplasties. Moderate bilateral knee degeneration greater on the left. XR/XR bone survey IMPRESSION: No worrisome lytic lesion. Degenerative change. Impression dictated by: Michael Ferrer M.D.02/02/2024 8:01 PM Dictation Location: [place] [address] Transcribed By: [facility] 02/02/242000 Dictated By: Michael Ferrer DO 02/02/241952 Signed By: 02/02/242000LissaCrawley Memorial Hospital Physician GroupXR knee LT 4V*on 87-71-8585CA knee LT 4V*[facility] Main [address] [address] XRay Report Signed Patient: Indiana Hines MR#: [id number] [birth year] : 1945 Acct:[id number] Age/Sex: 78 / M ADM Date: 01/15/24 Loc: ER Room: Type: PRE ER Attending Dr: Copies to: JOHN Babb Ordering Provider: JOHN Babb Date of Service: 01/15/24 XR/XR knee LT 4V*: Fall XR knee LT 4V* 01/15/2024 1:18 PM SIGNS AND SYMPTOMS: Left knee pain after falling PROTOCOL: Frontal, lateral, and oblique radiographs of the left knee COMPARISON: None FINDINGS: There is total left knee arthroplasty hardware. There is no hardware complication. There is a mildly displaced fracture at the superior pole the patella which is of uncertain acuity. The bony fragments are subluxed proximally by 1 cm. There is prepatellar soft tissue swelling suggesting an acute fracture. Vascular calcifications are present posteriorly. XR/XR knee LT 4V* IMPRESSION: There is total left knee arthroplasty hardware. No evidence of hardware failure. There is a mildly displaced fracture at the superior pole the patella which is of uncertain acuity. The bony fragments are subluxed proximally by 1 cm. There is prepatellar soft tissue swelling suggesting an acute fracture. Impression dictated by: Je Dias M.D.01/15/2024 1:50 PM Dictation Location: [place] [address] Transcribed By: [facility] 01/15/24 1350 Dictated By: Je Dias II, MD 01/15/24 1349 Signed By: 01/15/24 1350[facility] Physician TvpoyI0J with Estimated Average Gluon 75-77-9880Hpyidkr [Mass/Vol]120 mg/dLPalm Beach Gardens Medical Center Physician GroupComment on above:Result Comment: PERFORMED BY: [address] [address] PATHOLOGIST SEAL DELIV[employer] VEHICLE TEAM TECHNICIAN EDYTA ACEVEDO M.D.Performed By: #### CBC, CMP, FE and TIBC, JOSSUE #### [facility] [address] [place] [id number] UFKLoB0u (Bld) [Mass fraction]5.8 %High4.3-5.6The [facility] Physician GroupComment on above:Result Comment: Increased risk for diabetes: 5.7 - 6.4 diabetes: >6.4 glycemic control for adults with diabetes: <7.0Performed By: #### CBC, CMP, FE and TIBC, JOSSUE #### [facility] [address] [place] [id number] USAAlanine aminotransferase [Enzymatic activity/volume] in Serum or PlasmaOrdered By: Juvencio Sanchez on 89-03-4234ATQ [Catalytic activity/Vol]Alanine aminotransferase [Enzymatic activity/volume] in Serum or Plasma7-52Providence HospitalAlbumin [Mass/volume] in Serum or Plasma by Bromocresol green (BCG) dye binding methoOrdered By: Juvencio Sanchez on 99-51-1245Avetdra BCG dye [Mass/Vol]Albumin [Mass/volume] in Serum or Plasma by Bromocresol green (BCG) dye binding metho3.5-5.7FWVUMedicine Harrison Community HospitalAlkaline phosphatase [Enzymatic activity/volume] in Serum or PlasmaOrdered By: Juvencio Sanchez on 86-88-0944CVS [Catalytic activity/Vol]Alkaline phosphatase [Enzymatic activity/volume] in Serum or CbmuorTpbe05-330AedmtjfddProvidence HospitalAppearance of UrineOrdered By: Mireya Pichardo on 76-61-4783Qcmnirvuis (U)Urine appearanceCleTrumbull Regional Medical CenterAspartate aminotransferase [Enzymatic activity/volume] in Serum or PlasmaOrdered By: Juvencio Sanchez on 47-54-5263GRW [Catalytic activity/Vol]Aspartate aminotransferase [Enzymatic activity/volume] in Serum or Eersrd61-29KmtrjywicProvidence HospitalBacteria [Presence] in Urine by AutomatedOrdered By: Mireya Pichardo on 27-55-9512Qqlwglnj Auto Ql (U)Bacteria [Presence] in Urine by AutomatedNone Seen Providence HospitalBasophils Auto (Bld) [#/Vol]Ordered By: Juvencio Sanchez on 86-22-8083Yaokmzdik (Bld) [#/Vol]Automated basophil count0.0-0.2 [facility] HospitalBasophils/100 WBC Auto (Bld)Ordered By: Juvencio Sanchez on 76-05-1641Qljhdkrjt/100 WBC (Bld)Automated basophil %.Providence HospitalBilirubin Test strip Ql (U)Ordered By: Mireya Pichardo on 24-24-8735Wseiszpjt Ql (U)Bilirubin.total [Presence] in Urine by Test strip NegativeProvidence HospitalBilirubin.total [Mass/volume] in Serum or PlasmaOrdered By: Juvencio Sanchez on 05-76-5601Luvgkuhqp [Mass/Vol] Bilirubin.total [Mass/volume] in Serum or Plasma0.3-1.0Providence HospitalBlood estimated average glucose determination by estimation from glycated hemoglobinOrdered By: Juvencio Sanchez on 39-82-4874Kmgfbzq glucose Estimated from glycated hemoglobin (Bld) [Mass/Vol]Glucose mean value [Mass/volume] in Blood Estimated from glycated hemoglobinProvidence HospitalCalcium [Mass/volume] in Serum or PlasmaOrdered By: Juvencio Sanchez on 42-68-6081Nybhhsl [Mass/Vol]Calcium [Mass/volume] in Serum or Plasma8.6-10.3 [facility] HospitalCarbon dioxide, total [Moles/volume] in Serum or PlasmaOrdered By: Juvencio Sanchez on 10-15-5064TQ3 [Moles/Vol]Carbon dioxide, total [Moles/volume] in Serum or Fkimfb12.0-31.0Providence HospitalChloride [Moles/volume] in Serum or PlasmaOrdered By: Juvencio Sanchez on 64-13-1740Whanqkay [Moles/Vol]Chloride [Moles/volume] in Serum or Xaajbx90-598 [facility] HospitalCholesterol [Mass/volume] in Serum or Plasma Ordered By: Juvencio Sanchez on 66-96-5360Gvadhdtspbv [Mass/Vol]Cholesterol [Mass/volume] in Serum or RgwamwAkj544-867QwxqeothdProvidence Hospital Comment on above:Chol less than 200 mg/dl low riskChol 201-239 mg/dl borderline riskChol 240 mg/dl and greater high riskCholesterol in HDL [Mass/volume] in Serum or PlasmaOrdered By: Juvencio Sanchez on 13-88-1167Qytbywabend in HDL [Mass/Vol]Serum or plasma high density lipoprotein (HDL) cholesterol measurement 23-Providence HospitalComment on above:HDL CHOL ATP-III CLASSIFICATION Cardiovascular RiskHDL > or equal to 60 mg/dL LOWHDL < 40 mg/dL HIGHCholesterol in LDL Calc [Mass/Vol]Ordered By: Juvencio Sanchez on 12-15-2023 Cholesterol in LDL [Mass/Vol]Cholesterol in LDL [Mass/volume] in Serum or Plasma by calculationProvidence HospitalComment on above:LDL ATP III CLASSIFICATIONLDL less than 100 mg/dL OptimalLDL 100-129 mg/dL Near or above qxjrltyOFV779-304 mg/dL Borderline highLDL 160-189 mg/dL HighLDL greater than 189 mg/dL Very highCholesterol in VLDL Calc [Mass/Vol]Ordered By: Juvencio Sanchez on 03-19-5461Jjjarpfgblp in VLDL [Mass/Vol]Cholesterol in VLDL [Mass/volume] in Serum or Plasma by calculationProvidence HospitalColor Auto (U) Ordered By: Mireya Pichardo on 55-51-7074Jkcwq (U)Color of Urine by AutoYellow Providence HospitalComplete Blood Count Auto Diffon 12-15-2023 Basophils (Bld) [#/Vol]0.1 10*3/uLNormal0.0-0.2The [facility] Comment on above:Result Comment: PERFORMED BY: [place] [address] PATHOLOGIST SEAL DELIVERY VEHICLE TEAM TECHNICIAN EDYTA ACEVEDO M.D.Performed By: #### CBC, CMP, FE and TIBC, JOSSUE #### [facility] [address] [place] [address] USABasophils/100 WBC (Bld)1.0 %Normal.The [facility] Physician GroupComment on above:Performed By: #### CBC, CMP, FE and TIBC, JOSSUE #### [facility] [address] [place] [address] USAEosinophils (Bld) [#/Vol]0.2 10*3/uLNormal0.0-0.45The [facility] Physician GroupComment on above:Performed By: #### CBC, CMP, FE and TIBC, JOSSUE #### [place] [address] USAEosinophils/100 WBC (Bld)3.4 %Normal.The [facility] Physician GroupComment on above:Performed By: #### CBC, CMP, FE and TIBC, JOSSUE #### [place] [address] USAErythrocyte distribution width (RBC) [Ratio]15.4 %High 12.0-14.8The [facility] Physician GroupComment on above:Performed By: #### CBC, CMP, FE and TIBC, JOSSUE #### [place] [address] USAHematocrit (Bld) [Volume fraction]38.2 %Low38.8-50.0The [facility]ician GroupComment on above:Performed By: #### CBC, CMP, FE and TIBC, JOSSUE #### [place] [address] USAHemoglobin (Bld) [Mass/Vol]12.5 g/dLLow13.0-17.0The [facility] GroupComment on above:Performed By: #### CBC, CMP, FE and TIBC, JOSSUE #### [place] [address] USALymphocytes (Bld) [#/Vol]0.9 10*3/uLLow1.00-4.8The [facility]ician GroupComment on above:Performed By: #### CBC, CMP, FE and TIBC, JOSSUE #### [place] [address] USALymphocytes/100 WBC (Bld)15.1 %Normal.The [facility] Physician GroupComment on above:Performed By: #### CBC, CMP, FE and TIBC, JOSSUE #### [address] [address] USAMCH (RBC) [Entitic mass]30.0 fvCyxlqe94.5-35.2The [facility] Physician GroupComment on above:Performed By: #### CBC, CMP, FE and TIBC, JOSSUE #### [address]V (RBC) [Entitic vol]91.4 tZPjtnnk52.5-101The [facility] Physician GroupComment on above:Performed By: #### CBC, CMP, FE and TIBC, JOSSUE #### [place] [address] USAMean Corpuscular HGB Conc32.8 g/vLVwcufs59.5-35.6The [facility] Physician GroupComment on above:Performed By: #### CBC, CMP, FE and TIBC, JOSSUE #### [place] [address] USAMonocytes (Bld) [#/Vol]0.5 10*3/uLNormal0.0-0.8The [facility] GroupComment on above:Performed By: #### CBC, CMP, FE and TIBC, JOSSUE #### [place] [address] USAMonocytes/100 WBC (Bld)8.8 %Normal.The [facility] GroupComment on above:Performed By: #### CBC, CMP, FE and TIBC, JOSSUE #### [place] [address] USANeutrophils (Bld) [#/Vol]4.4 10*3/uLNormal1.8-7.7The [facility] GroupComment on above:Performed By: #### CBC, CMP, FE and TIBC, JOSSUE #### [place] [address] USANeutrophils/100 WBC (Bld)71.7 %Normal.The [facility]ician GroupComment on above:Performed By: #### CBC, CMP, FE and TIBC, JOSSUE #### [place] [address] USANRBC%0.0 /100{WBC}Normal0-0.5The [facility] Comment on above:Performed By: #### CBC, CMP, FE and TIBC, JOSSUE #### [place] [address] USAPlatelet mean volume (Bld) [Entitic vol]9.2 fLNormal 6.6-10.1The [facility] GroupComment on above:Performed By: #### CBC, CMP, FE and TIBC, JOSSUE #### [place] [address] USAPlatelets (Bld) [#/Vol]205 10*3/wFBanueu360-817Dcn [facility]ician GroupComment on above:Performed By: #### CBC, CMP, FE and TIBC, JOSSUE #### [place] [address] USARBC (Bld) [#/Vol]4.18 10*6/uLNormal3.90-5.60The [facility] GroupComment on above:Performed By: #### CBC, CMP, FE and TIBC, JOSSUE #### [place] [address] USAWBC (Bld) [#/Vol]6.1 10*3/uLNormal4.1-10.5The [facility] GroupComment on above:Performed By: #### CBC, CMP, FE and TIBC, JOSSUE #### [place] [address] USAComprehensive Metabolic Panelon 25-70-5364Goxjbvx [Mass/Vol]4.2 g/dLNormal3.5-5.7The [facility]ician GroupComment on above: Performed By: #### CBC, CMP, FE and TIBC, JOSSUE #### [place] [address] USAAlbumin/Globulin [Mass ratio]1.7 {ratio}NormalThe [facility] Physician GroupComment on above:Performed By: #### CBC, CMP, FE and TIBC, JOSSUE #### [facility] [address] [place] [address] USAALP [Catalytic activity/Vol]138 U/CRmwf67-915Fww [facility] Physician GroupComment on above:Performed By: #### CBC, CMP, FE and TIBC, JOSSUE #### [place] [address] USAALT [Catalytic activity/Vol]12 U/LNormal7-52The [facility] GroupComment on above:Performed By: #### CBC, CMP, FE and TIBC, JOSSUE #### [place] [address] USAAnion gap [Moles/Vol]12.3 mmol/LNormal6.0-15.0The [facility] GroupComment on above:Performed By: #### CBC, CMP, FE and TIBC, JOSSUE #### [place] [address] USAAST [Catalytic activity/Vol]17 U/LHiwrmr98-45Drn [facility] GroupComment on above:Performed By: #### CBC, CMP, FE and TIBC, JOSSUE #### [place] [address] USABilirubin [Mass/Vol]0.4 mg/dLNormal0.3-1.0The [facility] GroupComment on above:Performed By: #### CBC, CMP, FE and TIBC, JOSSUE #### [place] [address] USACalcium [Mass/Vol]9.1 mg/dLNormal8.6-10.3The [facility] GroupComment on above:Performed By: #### CBC, CMP, FE and TIBC, JOSSUE #### [place] [address] USAChloride [Moles/Vol]105 mmol/WEeyetd27-086Hxn [facility]ician GroupComment on above:Performed By: #### CBC, CMP, FE and TIBC, JOSSUE #### [place] [address] USACO2 [Moles/Vol]27.9 mmol/YImmirc68.0-31.0The [facility] GroupComment on above:Performed By: #### CBC, CMP, FE and TIBC, JOSSUE #### [facility] [address] [place] [address] USACreatinine [Mass/Vol]1.41 mg/dLHigh0.70-1.30The [facility] GroupComment on above:Performed By: #### CBC, CMP, FE and TIBC, JOSSUE #### [facility] [address] [place] [address] USAGFR/1.73 sq M.predicted MDRD (S/P/Bld) [Vol rate/Area] 50.692 mL/min/{1.73_m2}NormalThe [facility]ician GroupComment on above: Performed By: #### CBC, CMP, FE and TIBC, JOSSUE #### [place] [address] USAGlobulin (S) [Mass/Vol]2.5 g/dLNormalThe [facility] GroupComment on above:Performed By: #### CBC, CMP, FE and TIBC, JOSSUE #### [place] [address] USAGlucose [Mass/Vol]88 mg/uVXvwfgi20-498Fpg [facility]ician GroupComment on above:Result Comment: Random Glucose Reference Range is dependent on time and content of last meal. Glucose of more than 200 mg/dL in a nonstressed, ambulatory subject supports the diagnosis of Diabetes Mellitus. ADA recommended reference rangePerformed By: #### CBC, CMP, FE and TIBC, JOSSUE #### [place] [address] USAPotassium [Moles/Vol]5.2 mmol/LHigh3.5-5.1The [facility] GroupComment on above:Performed By: #### CBC, CMP, FE and TIBC, JOSSUE #### [place] [address] USAProtein [Mass/Vol]6.7 g/dLNormal6.4-8.9The [facility] GroupComment on above:Performed By: #### CBC, CMP, FE and TIBC, JOSSUE #### [facility] [address] [place] [address] USASodium [Moles/Vol]140 mmol/HXvktdk844-896Jek [place] Physician [facility] General HospitalComment on above:Performed By: #### CBC, CMP, FE and TIBC, JOSSUE #### [facility] [address] [place] [address] USAUrea nitrogen [Mass/Vol]17 mg/dLNormal7-25The [facility] GroupComment on above:Performed By: #### CBC, CMP, FE and TIBC, JOSSUE #### [facility] [address] [place] [id number] USACreatinine [Mass/volume] in Serum or PlasmaOrdered By: Juvencio Sanchez on 89-55-0780Jqpdxczrdm [Mass/Vol]Creatinine [Mass/volume] in Serum or PlasmaHigh0.70-1.30Providence HospitalCreatinine [Mass/volume] in UrineOrdered By: Mireya Pichardo on 00-82-9731Lkbpvjzxra (U) [Mass/Vol] Creatinine [Mass/volume] in UrineProvidence HospitalComment on above:No reference range establishedDipstick and Microscopicon 12-15-2023 Appearance (U)ClearNormalClearThe [facility] Physician GroupComment on above: Order Comment: Reason for Exam Chronic kidney disease, stage III (moderate);Warner hy kid w cr Name Collection Type:: Clean-Voided MidstreamPerformed By: #### CBC, CMP, FE and TIBC, JOSSUE #### [facility] [address] [place] [id number] USABacteria,UrineNone SeenNormalNone SeenThe [facility] Physician GroupComment on above:Order Comment: Reason for Exam Chronic kidney disease, stage III (moderate);Warner hy kid w cr Name Collection Type:: Clean- Voided MidstreamPerformed By: #### CBC, CMP, FE and TIBC, JOSSUE #### [facility] [address] [place] [address] USABilirubin,UrineNegativeNormalNegativeThe [facility] GroupComment on above:Order Comment: Reason for Exam Chronic kidney disease, stage III (moderate);Warner terry cr Name Collection Type:: Clean- Voided MidstreamPerformed By: #### CBC, CMP, FE and TIBC, JOSSUE #### [facility] [address] [place] [id number] USAColor (U)YellowNormalYellowHolmes Regional Medical Center [facility] Comment on above:Order Comment: Reason for Exam Chronic kidney disease, stage III (moderate);Warner barrera w cr Name Collection Type:: Clean-Voided Midstream Performed By: #### CBC, CMP, FE and TIBC, JOSSUE #### [facility] [address] [place] [id number] USAGlucose Ql (U)NormalNormalNormSarasota Memorial Hospital - Venice Physician GroupComment on above:Order Comment: Reason for Exam Chronic kidney disease, stage III (moderate);Warner barrera w cr Name Collection Type:: Clean-Voided MidstreamPerformed By: #### CBC, CMP, FE and TIBC, JOSSUE #### [facility] [address] [place] [id number] USAHyaline Casts,Urine0 [LPF]Normal0-8The [facility] Physician GroupComment on above:Order Comment: Reason for Exam Chronic kidney disease, stage III (moderate);Warner barrera w cr Name Collection Type:: Clean-Voided MidstreamPerformed By: #### CBC, CMP, FE and TIBC, JOSSUE #### [place] [id number] USAKetones Ql (U)NegativeNormalNegativeHolmes Regional Medical Center Physician GroupComment on above:Order Comment: Reason for Exam Chronic kidney disease, stage III (moderate);Warner barrera w cr Name Collection Type:: Clean- Voided MidstreamPerformed By: #### CBC, CMP, FE and TIBC, JOSSUE #### [facility] [address] [place] [phone] USALeukocyte esterase Test strip Ql (U)NegativeNormalNegative [facility]ician GroupComment on above:Order Comment: Reason for Exam Chronic kidney disease, stage III (moderate);Warner barrera w cr Name Collection Type:: Clean-Voided MidstreamPerformed By: #### CBC, CMP, FE and TIBC, JOSSUE #### [place] [id number] USAMucus,UrineRareNormalThe [facility] GroupComment on above:Order Comment: Reason for Exam Chronic kidney disease, stage III (moderate);Warner barrera w cr Name Collection Type:: Clean-Voided MidstreamResult Comment: PERFORMED BY: [place] [address] PATHOLOGIST SEAL DELIVERY VEHICLE TEAM TECHNICIAN EDYTA ACEVEDO M.D.Performed By: #### CBC, CMP, FE and TIBC, JOSSUE #### [place] [address] USANitrite,UrineNegativeNormalNegativeThe [facility] Physician GroupComment on above:Order Comment: Reason for Exam Chronic kidney disease, stage III (moderate);Warner nava kid w cr Name Collection Type:: Clean-Voided MidstreamPerformed By: #### CBC, CMP, FE and TIBC, JOSSUE #### [place] [address] USAOccult Blood,UrineNegativeNormalNegativeThe [facility] GroupComment on above:Order Comment: Reason for Exam Chronic kidney disease, stage III (moderate);Warner nava kid w cr Name Collection Type:: Clean- Voided MidstreamPerformed By: #### CBC, CMP, FE and TIBC, JOSSUE #### [place] [address] USApH (U)5.5 [pH]Normal5.0-9.0The [facility] Comment on above:Order Comment: Reason for Exam Chronic kidney disease, stage III (moderate);Warner elijah kid w cr Name Collection Type:: Clean-Voided Midstream Performed By: #### CBC, CMP, FE and TIBC, JOSSUE #### [place] [address] USAProtein,UrineNegativeNormalNegativeThe [facility]ician GroupComment on above:Order Comment: Reason for Exam Chronic kidney disease, stage III (moderate);Warner hy kid w cr Name Collection Type:: Clean-Voided MidstreamPerformed By: #### CBC, CMP, FE and TIBC, JOSSUE #### [facility] [address] [place] [phone] USARBC,Urine1 [HPF]Normal0-4The [facility] Comment on above:Order Comment: Reason for Exam Chronic kidney disease, stage III (moderate);Warner terry cr Name Collection Type:: Clean-Voided Midstream Performed By: #### CBC, CMP, FE and TIBC, JOSSUE #### [facility] [address] [place] [address] USASpecificy Goldvein,Urine1.091Rqkznw9.001-1.030The [facility] Physician GroupComment on above:Order Comment: Reason for Exam Chronic kidney disease, stage III (moderate);Warner barrera w cr Name Collection Type:: Clean- Voided MidstreamPerformed By: #### CBC, CMP, FE and TIBC, JOSSUE #### [place] [address] USAUrobilinogen,UrineNormalNormalNormalThe [facility] GroupComment on above:Order Comment: Reason for Exam Chronic kidney disease, stage III (moderate);Warner barrera w cr Name Collection Type:: Clean- Voided MidstreamPerformed By: #### CBC, CMP, FE and TIBC, JOSSUE #### [facility] [address] [place] [address] USAWBC,Urine1 [HPF]Normal0-4The [facility] Comment on above:Order Comment: Reason for Exam Chronic kidney disease, stage III (moderate);Warner barrera w cr Name Collection Type:: Clean-Voided Midstream Performed By: #### CBC, CMP, FE and TIBC, JOSSUE #### [facility] [address] [place] [id number] USAEosinophils Auto (Bld) [#/Vol]Ordered By: Juvencio Sanchez on 84-83-5869Fncuajldvzv (Bld) [#/Vol]Automated eosinophil count0.0-0.45Providence HospitalEosinophils/100 WBC Auto (Bld)Ordered By: Juvencio Sanchez on 84-24-3207Zorybtuzjxf/100 WBC (Bld)Automated eosinophil %.Providence HospitalEpithelial cells.squamous [#/area] in Urine sediment by Automated countOrdered By: Mireya Pichardo on 68-46-4109Szikygpeht cells.squamous Auto (Urine sed) [#/Area]Epithelial cells.squamous [#/area] in Urine sediment by Automated countProvidence HospitalErythrocyte distribution width Auto (RBC) [Ratio]Ordered By: Juvencio Sanchez on 97-28-0774Oaeiugaykuw distribution width (RBC) [Ratio]Erythrocyte distribution width [Ratio] by Automated countHigh 12.0-14.8Providence HospitalErythrocytes [#/area] in Urine sediment by Automated countOrdered By: Mireya Pichardo on 81-48-1078QFS Auto (Urine sed) [#/Area]Erythrocytes [#/area] in Urine sediment by Automated count0-4 Providence HospitalFerritinon 00-89-6104Stancpbq [Mass/Vol]284.9 ng/kPIboirf69.9-336.2The [facility] Physician GroupComment on above:Result Comment: PERFORMED BY: [place] [address] PATHOLOGIST SEAL DELIVERY VEHICLE TEAM TECHNICIAN EDYTA ACEVEDO M.D.Performed By: #### CBC, CMP, FE and TIBC, JOSSUE #### [place] [address] USAFerritin [Mass/volume] in Serum or PlasmaOrdered By: Juvencio Sanchez on 11-21-7220Ppaijlwk [Mass/Vol]Ferritin [Mass/volume] in Serum or Wjsljn61.9-336.2FWVUMedicine Harrison Community HospitalFolate [Mass/volume] in Serum or PlasmaOrdered By: Mireya Pichardo on 96-85-0168Timdxt [Mass/Vol]Folate [Mass/volume] in Serum or Plasma>5.9Providence HospitalComment on above:Folate reference range: >5.9 ng/mlThe WHO technical consultation on folate and vitamin t26nyzptfzdqjum has determined that folate concentrations lessthan 4 ng/ml are considered deficient.Free K+L LT Chains, Qn, Son 13-69-0133Outo Kotlik Light Chains, S23.1 mg/LHigh3.3-19.4The [facility] Physician GroupComment on above:Order Comment: Reason for Exam Chronic kidney disease, stage III (moderate);Warner terry crPerformed By: #### CBC, CMP, FE and TIBC, JOSSUE #### [facility] [address] [place] [address] USAFree Lambda Light Chains, S14.0 mg/LNormal5.7-26.3The [facility] Physician GroupComment on above:Order Comment: Reason for Exam Chronic kidney disease, stage III (moderate);Warner terry crPerformed By: #### CBC, CMP, FE and TIBC, JOSSUE #### [facility] [address] [place] [address] USAKappa/Lambda Ratio, S1.37Xtxyjx4.26-1.65The [facility] Physician GroupComment on above:Order Comment: Reason for Exam Chronic kidney disease, stage III (moderate);Warner terry crResult Comment: Performed at: - [place] [address] Chair Car Attendant: Modesto Avila PhD, Phone: [phone] PERFORMED BY: [place] [address] PATHOLOGIST SEAL DELIVERY VEHICLE TEAM TECHNICIAN JAYLEN BEVERLY M.D.Performed By: #### CBC, CMP, FE and TIBC, JOSSUE #### [place] [address] USAGlobulin Calc (S) [Mass/Vol]Ordered By: Juvencio Sanchez on 83-75-4977Alkdwies (S) [Mass/Vol]Serum globulin measurement by calculation (mass/volume)Providence HospitalGlucose [Mass/volume] in Serum or PlasmaOrdered By: Juvencio Sanchez on 13-44-9613Mveiwfz [Mass/Vol]Glucose [Mass/volume] in Serum or Dxyedz11-465UehqqtpydProvidence HospitalComment on above:ADA recommended reference rangeRandom Glucose Reference Range is dependent on time and content of last meal. Glucose of more than 200 mg/dL in a nonstressed, ambulatory subject supports the diagnosisof Diabetes Mellitus. Glucose [Mass/volume] in Urine by Test stripOrdered By: Mireya Pichardo on 16-59-5078Tgivqrj Test strip (U) [Mass/Vol]Glucose [Mass/volume] in Urine by Test stripNormalProvidence HospitalHematocrit Auto (Bld) [Volume fraction]Ordered By: Juvencio Sanchez on 47-91-5982Jbycvatqcb (Bld) [Volume fraction]Hematocrit [Volume Fraction] of Blood by Automated wzbtySkc21.8-50.0 [facility] HospitalHemoglobin A1c/Hemoglobin.total in BloodOrdered By: Juvencio Sanchez on 49-82-5019NtM5l (Bld) [Mass fraction]Hemoglobin A1c percentageHigh4.3-5.6FWVUMedicine Harrison Community HospitalComment on above:Increased risk for diabetes: 5.7 - 6.4diabetes: >6.4glycemic control for adults with diabetes: <7.0Hemoglobin Test strip Ql (U)Ordered By: Mireya Pichardo on 01-57-6052Skrskowqaw Ql (U)Hemoglobin [Presence] in Urine by Test stripNegative Providence HospitalHemoglobin [Mass/volume] in BloodOrdered By: Juvencio Sanchez on 22-46-9225Akmttaxsfc (Bld) [Mass/Vol]Hemoglobin [Mass/volume] in NnrcsOez12.0-17.0Providence HospitalHyaline casts [#/area] in Urine sediment by Automated countOrdered By: Mireya Pichardo on 22-98-9369Nrtmnyp casts Auto (Urine sed) [#/Area]Hyaline casts [#/area] in Urine sediment by Automated count0-8Providence HospitalImmunofixation for Urine Ordered By: Mireya Pichardo on 05-95-4767Nkhoqpywqlculv Immunofixation (U) [Interp] Immunofixation for UrineAbnormal.Providence HospitalComment on above:Bence Long Protein positive; kappa type.Performed at: - [facility] [id number] Director: Modesto Avila PhD, Phone: [phone], (TARIK), Urineon 41-60-6254Wgfbqvluiybnox, (TARIK), UrineCommentCritically abnormal.The [facility] Physician GroupComment on above: Order Comment: Reason for Exam Chronic kidney disease, stage III (moderate);Warner hy bruce w crResult Comment: Bence Long Protein positive; kappa type. Performed at: - [facility] [address] [id number] Chair Car Attendant: Modesto Avila PhD, Phone: [phone] PERFORMED BY: [place] [address] PATHOLOGIST SEAL DELIVERY VEHICLE TEAM TECHNICIAN EDYTA ACEVEDO M.D.Performed By: #### PROCRERAT, ADDONUAPLUS #### [place] [address] USAImmunofixation,Serumon 14-60-4829Xogipuahzxzlzw, Serum Comment:Normal.The [facility] Physician GroupComment on above:Order Comment: Reason for Exam Chronic kidney disease, stage III (moderate);Warner hy bruce w cr Result Comment: Presence of monoclonal protein is unclear at this time. Suggest repeat in 3 to 6 months if clinically indicated.Performed By: #### CBC, CMP, FE and TIBC, JOSSUE #### [place] [address] USAImmunoglobulin A, Serum74 mg/nJDxnkbb60-994Npc [facility] Physician GroupComment on above:Order Comment: Reason for Exam Chronic kidney disease, stage III (moderate);[employer] hy kid w crPerformed By: #### CBC, CMP, FE and TIBC, JOSSUE #### [place] [id number] USAImmunoglobulin G953 mg/uOSnkkre416-7128Yqp [facility] Physician GroupComment on above:Order Comment: Reason for Exam Chronic kidney disease, stage III (moderate);[employer] hy kid w crPerformed By: #### CBC, CMP, FE and TIBC, JOSSUE #### [place] [id number] USAImmunoglobulin M, Serum89 mg/bTQshkpk10-363Nmr [facility] Physician GroupComment on above:Order Comment: Reason for Exam Chronic kidney disease, stage III (moderate);[employer] hy kid w crResult Comment: Performed at: - [facility] [address] [id number] Chair Car Attendant: Modesto Avila PhD, Phone: [phone] By: #### CBC, CMP, FE and TIBC, JOSSUE #### [facility] [address] [place] [address] USAIron [Mass/volume] in Serum or PlasmaOrdered By: Juvencio Sanchez on 93-74-9320Encd [Mass/Vol]Iron [Mass/volume] in Serum or Psxlkc97-941 Providence HospitalIron and TIBC Profileon 12-15-2023% Iron Tahzgdnlcr53.4 %Zarkdp88-70Tcf Former[facility] Physician GroupComment on above: Performed By: #### CBC, CMP, FE and TIBC, JOSSUE #### [facility] [address] [place] [id number] USAIron [Mass/Vol]65 ug/rFPpcmav84-260Qdw Former[facility] Physician GroupComment on above:Performed By: #### CBC, CMP, FE and TIBC, JOSSUE #### [facility] [address] [place] [address] USATotal Iron Binding Bsmydviq150 ug/zHGabdkg122-119Qkj [facility]ician [facility] HospitalComment on above:Performed By: #### CBC, CMP, FE and TIBC, JOSSUE #### [facility] [address] [place] [address] USATransferrin [Mass/Vol]217 mg/qWYfffke784-524Mzu [facility] Physician GroupComment on above:Performed By: #### CBC, CMP, FE and TIBC, JOSSUE #### [facility] [address] [place] [address] USAKetones Test strip Ql (U)Ordered By: Mireya Pichardo on 67-97-3515Mhxwovs Ql (U)Ketones [Presence] in Urine by Test stripNegative Providence HospitalLeukocyte esterase [Presence] in Urine by Test stripOrdered By: Mireya Pichardo on 65-35-0866Yitljohwx esterase Test strip Ql (U) Leukocyte esterase [Presence] in Urine by Test stripNegativeProvidence HospitalLeukocytes [#/area] in Urine sediment by Automated countOrdered By: Mireya Pichardo on 30-67-5227KXB Auto (Urine sed) [#/Area]Leukocytes [#/area] in Urine sediment by Automated count0-4FWVUMedicine Harrison Community HospitalLeukocytes [#/volume] corrected for nucleated erythrocytes in Blood by Automated coun Ordered By: Juvencio Sanchez on 62-24-9556NGJ corrected for nucl RBC Auto (Bld) [#/Vol]Leukocytes [#/volume] corrected for nucleated erythrocytes in Blood by Automated coun4.1-10.5FWVUMedicine Harrison Community HospitalLipid Panelon 12-15-2023 Cholesterol [Mass/Vol]139 mg/hGKwr842-201Dfq Former[facility] Physician GroupComment on above:Result Comment: Chol less than 200 mg/dl low risk Chol 201-239 mg/dl borderline risk Chol 240 mg/dl and greater high riskPerformed By: #### CBC, CMP, FE and TIBC, JOSSUE #### [facility] [address] [place] [id number] USACholesterol in HDL [Mass/Vol]46 mg/iTIsgtzd11-90Iim Former[facility] Physician GroupComment on above:Result Comment: HDL CHOL ATP-III CLASSIFICATION Cardiovascular Risk HDL > or equal to 60 mg/dL LOW HDL < 40 mg/dL HIGHPerformed By: #### CBC, CMP, FE and TIBC, JOSSUE #### [facility] [address] [place] [address] USACholesterol.total/Cholesterol in HDL [Mass ratio]3.0 {ratio}Normal<5.0The [facility] GroupComment on above:Result Comment: PERFORMED BY: [facility] [address] [place] [address] PATHOLOGIST SEAL DELIVERY VEHICLE TEAM TECHNICIAN EDYTA ACEVEDO M.D.Performed By: #### CBC, CMP, FE and TIBC, JOSSUE #### [facility] [address] [place] [id number] USALDL Cholesterol,Ujfzznffcn45 mg/dLNormal0-100The Formerly [facility] Physician GroupComment on above:Result Comment: LDL ATP III CLASSIFICATION LDL less than 100 mg/dL Optimal LDL 100-129 mg/dL Near or above optimal LDL 130-159 mg/dL Borderline high LDL 160-189 mg/dL High LDL greater than 189 mg/dL Very highPerformed By: #### CBC, CMP, FE and TIBC, JOSSUE #### [facility] [address] [place] [id number] USATriglyceride w/Culklk977 mg/dLHigh0-149The Formerly [facility] Physician GroupComment on above:Result Comment: TRIG ATP III CLASSIFICATION TRIG less than 150 mg/dL Normal TRIG 150-199 mg/dL Borderline high TRIG 200-500 mg/dL High TRIG greater than 500 mg/dL Very high Standard traceable to the Center for Disease Conrtrol and Prevention (CDC) test method.Performed By: #### CBC, CMP, FE and TIBC, JOSSUE #### [facility] [address] [place] [address] USAVLDL VYPSEYNQXNQ50 mg/dLNormalThe Formerly [facility] Physician GroupComment on above:Performed By: #### CBC, CMP, FE and TIBC, JOSSUE #### [facility] [address] [place] [id number] USALymphocytes Auto (Bld) [#/Vol]Ordered By: Juvencio Sanchez on 19-41-3028Drmhuybmzda (Bld) [#/Vol]Lymphocytes [#/volume] in Blood by Automated countLow1.00-4.8Providence HospitalLymphocytes/100 WBC Auto (Bld) Ordered By: Juvencio Sanchez on 87-12-3730Catopbqhlzi/100 WBC (Bld)Lymphocytes/100 leukocytes in Blood by Automated count.[facility] Auto (RBC) [Entitic mass]Ordered By: Juvencio Sanchez on 94-90-2775SEF (RBC) [Entitic mass]MCH [Entitic mass] by Automated count27.5-35.2FWayne HealthCare Main CampusHC Auto (RBC) [Mass/Vol]Ordered By: Juvencio Sanchez on 02-74-4565GYTF (RBC) [Mass/Vol]MCHC [Mass/volume] by Automated count32.5-35.6FWayne HealthCare Main CampusV Auto (RBC) [Entitic vol]Ordered By: Juvencio Sanchez on 12-15-2023 MCV (RBC) [Entitic vol]MCV [Entitic volume] by Automated count83.5-101Providence HospitalMagnesiumon 37-41-5476Ihtmdesgo [Mass/Vol]1.9 mg/dLNormal 1.9-2.7The Former[facility] Physician GroupComment on above:Order Comment: Reason for Exam Chronic kidney disease, stage III (moderate);[employer] hy kid w crPerformed By: #### CBC, CMP, FE and TIBC, JOSSUE #### [facility] [address] [place] [address] USAMagnesium [Mass/volume] in Serum or PlasmaOrdered By: Mireya Pichardo on 65-94-0160Fbwhezodi [Mass/Vol]Magnesium [Mass/volume] in Serum or Plasma1.9-2.7FWVUMedicine Harrison Community HospitalMonocytes Auto (Bld) [#/Vol] Ordered By: Juvencio Sanchez on 12-49-6030Rhwpyqdzr (Bld) [#/Vol]Automated blood monocyte count0.0-0.8Providence HospitalMonocytes/100 WBC Auto (Bld)Ordered By: Juvencio Sanchez on 36-77-8567Pzjzjtupp/100 WBC (Bld)Automated monocyte %.Providence HospitalMucus [Presence] in Urine by AutomatedOrdered By: Mireya Pichardo on 39-86-9131Ccskv Auto Ql (U)Mucus [Presence] in Urine by AutomatedProvidence HospitalNeutrophils Auto (Bld) [#/Vol]Ordered By: Juvencio Sanchez on 66-86-8985Yzsftlcnqzk (Bld) [#/Vol] Neutrophils [#/volume] in Blood by Automated count1.8-7.7FWVUMedicine Harrison Community HospitalNeutrophils/100 WBC Auto (Bld)Ordered By: Juvencio Sanchez on 07-07-2727Yjlfrrgeboz/100 WBC (Bld)Automated neutrophil %.Providence HospitalNitrite Test strip Ql (U)Ordered By: Mireya Pichardo on 12-15-2023 Nitrite Ql (U)Nitrite [Presence] in Urine by Test stripNegativeProvidence HospitalNo Panel InformationOrdered By: Juvencio Sanchez on 90-74-2409Ymxbokzbx GFR (CKD-EPI)50.692 mL/MinProvidence Hospital Pharmacy Creatinine Clearance (ChemN/AFWVUMedicine Harrison Community HospitalNucleated erythrocytes [Presence] in Blood by Automated countOrdered By: Juvencio Sanchez on 86-22-5841Lnuocmjyp RBC Auto Ql (Bld)Nucleated erythrocytes [Presence] in Blood by Automated count0-0.5FWVUMedicine Harrison Community HospitalParathyrin.intact [Mass/volume] in Serum or PlasmaOrdered By: Mireya Pichardo on 12-15-2023 Parathyrin.intact [Mass/Vol]Parathyrin.intact [Mass/volume] in Serum or Plasma Providence HospitalParathyroid Hormone Intacton 12-15-2023 Parathyroid Hormone Oeravf94.9 pg/zVCkuofi03-07Cpg [facility] Comment on above:Order Comment: Reason for Exam Chronic kidney disease, stage III (moderate);[employer] elijah Coyle Comment: PERFORMED BY: [place] [address] PATHOLOGIST SEAL DELIVERY VEHICLE TEAM TECHNICIAN EDYTA ACEVEDO M.D.Performed By: #### CBC, CMP, FE and TIBC, JOSSUE #### [place] [address] USAPhosphate [Mass/volume] in Serum or PlasmaOrdered By: Juvencio Sanchez on 23-55-1319Dkyyfuqld [Mass/Vol]Phosphate [Mass/volume] in Serum or Plasma2.5-4.5FWVUMedicine Harrison Community HospitalPlatelet mean volume Auto (Bld) [Entitic vol]Ordered By: Juvencio Sanchez on 78-24-3854Arcgkagq mean volume (Bld) [Entitic vol]Platelet mean volume [Entitic volume] in Blood by Automated count 6.6-10.1FWVUMedicine Harrison Community HospitalPlatelets Auto (Bld) [#/Vol]Ordered By: Juvencio Sanchez on 92-99-7145Qplqvwytc (Bld) [#/Vol]Platelets [#/volume] in Blood by Automated uazoe529-800VqwjuthkiProvidence HospitalPotassium [Moles/volume] in Serum or PlasmaOrdered By: Juvencio Sanchez on 13-38-7095Pehxasufd [Moles/Vol]Potassium [Moles/volume] in Serum or PlasmaHigh3.5-5.1FWVUMedicine Harrison Community HospitalProtein Creat Ratio Ur Randomon 57-41-3407Bnhbhgxvew, Urine (Random)103.00 mg/dLNormSarasota Memorial Hospital - Venice Physician GroupComment on above: Order Comment: Reason for Exam Chronic kidney disease, stage III (moderate);[employer] Coyle Comment: No reference range establishedPerformed By: #### CBC, CMP, FE and TIBC, JOSSUE #### [facility] [address] [place] [address] USAProtein (U) [Mass/Vol]25 mg/dLHigh0-9The Formerly [facility] Physician GroupComment on above:Order Comment: Reason for Exam Chronic kidney disease, stage III (moderate);[employer] terry crPerformed By: #### CBC, CMP, FE and TIBC, JOSSUE #### [place] [address] USAUrine Protein/Creatinine Didzh944 mg/g{Cre}High0-200The Formerly [facility] Physician GroupComment on above:Order Comment: Reason for Exam Chronic kidney disease, stage III (moderate);[employer] Coyle Comment: PERFORMED BY: [place] [address] PATHOLOGIST SEAL DELIVERY VEHICLE TEAM TECHNICIAN EDYTA ACEVEDO M.D.Performed By: #### CBC, CMP, FE and TIBC, JOSSUE #### [place] [address] USAProtein Test strip (U) [Mass/Vol]Ordered By: Mireya Pichardo on 34-69-6326Vgeyaqv (U) [Mass/Vol]Protein [Mass/volume] in Urine by Test strip NegativeProvidence HospitalProtein [Mass/volume] in Serum or PlasmaOrdered By: Juvencio Sanchez on 71-34-9707Oplvwmo [Mass/Vol]Protein [Mass/volume] in Serum or Plasma6.4-8.9Providence HospitalProtein [Mass/volume] in UrineOrdered By: Mireya Pichardo on 33-21-7788Oudbpvq (U) [Mass/Vol]Protein [Mass/volume] in UrineHigh0-9[facility] RBC Auto (Bld) [#/Vol]Ordered By: Juvencio Sanchez on 18-42-1247CWM (Bld) [#/Vol] Erythrocytes [#/volume] in Blood by Automated count3.90-5.60Providence HospitalRenal Function Panelon 77-26-5853Qygxmsrzb [Mass/Vol]3.5 mg/dL Normal2.5-4.5The Formerly [facility] Physician GroupComment on above:Performed By: #### CBC, CMP, FE and TIBC, JOSSUE #### [facility] [address] [place] [address] USASerum free kappa light chain measurementOrdered By: Mireya Pichardo on 73-53-8156Vsgeyncvpraxvf light chains.kappa.free (S) [Mass/Vol] Immunoglobulin light chains.kappa.free [Mass/volume] in SerumHigh3.3-19.4 [facility] Andersonerum immunofixation electrophoresisOrdered By: Mireya Pichardo on 36-31-0433Sdlvy ImmunofixationComment:.Providence HospitalComment on above:Presence of monoclonal protein is unclear at this time. Suggestrepeat in 3 to 6 months if clinically indicated.Serum immunoglobulin free kappa light chains/immunoglobulin free lambda light chains Ordered By: Mireya Pichardo on 58-16-7815Lsvshqvwwpgweh light chains.kappa.free/Immunoglobulin light chains.lambda.free (S) [Mass ratio] Immunoglobulin light chains.kappa.free/Immunoglobulin light chains.lambda.free [Mass0.26-1.65Providence HospitalComment on above:Performed at: - [facility] [id number] Director: Mdoesto Avila PhD, Phone: [phone] or plasma IgA measurement (mass/volume) Ordered By: Mireya Pichardo on 01-76-0586BvQ [Mass/Vol]IgA [Mass/volume] in Serum or Qgqsuu59-538FvfbziwbdOur Lady of Mercy Hospital - Andersonerum or plasma IgG measurement (mass/volume)Ordered By: Mireya Pichardo on 06-47-1600HfY [Mass/Vol]IgG [Mass/volume] in Serum or Ijrprc003-4333MsdsttdnfOur Lady of Mercy Hospital - Andersonerum or plasma IgM measurement (mass/volume)Ordered By: Mireya Pichardo on 09-85-9477NwP [Mass/Vol]IgM [Mass/volume] in Serum or Nasuxy35-130NdmypuqgaProvidence HospitalComment on above:Performed at: - [facility] [id number] Director: Modesto Avila PhD, Phone: [phone] or plasma albumin/globulin mass ratioOrdered By: Juvencio Sanchez on 12-15-2023 Albumin/Globulin [Mass ratio]Serum or plasma albumin/globulin mass ratio [facility] Andersonerum or plasma anion gap determinationOrdered By: Juvencio Sanchez on 23-86-4521Txsgx gap [Moles/Vol]Serum or plasma anion gap determination6.0-15.0[facility] Andersonerum or plasma immunoglobulin free lambda light chains measurement (mass/volume)Ordered By: Mireya Pichardo on 89-11-4162Bwyrvjzqlbkavh light chains.lambda.free [Mass/Vol] Immunoglobulin light chains.lambda.free [Mass/volume] in Serum or Plasma5.7-26.3 [facility] Andersonerum or plasma iron binding capacity measurement (mass/volume)Ordered By: Juvencio Sanchez on 65-66-3677Ybjq binding capacity [Mass/Vol]Iron binding capacity [Mass/volume] in Serum or Lzksit053-908 [facility] Andersonerum or plasma iron saturation measurement (mass fraction)Ordered By: Juvnecio Sanchez on 23-89-0954Xjwx saturation [Mass fraction]Iron saturation [Mass Fraction] in Serum or Hciljd85-52JtnjtjglhOur Lady of Mercy Hospital - Andersonerum or plasma total cholesterol/high density lipoprotein (HDL) cholesterol mass ratOrdered By: Juvencio Sanchez on 12-15-2023 Cholesterol.total/Cholesterol in HDL [Mass ratio]Serum or plasma total cholesterol/high density lipoprotein (HDL) cholesterol mass rat<5.0[facility] - Andersonodium [Moles/volume] in Serum or PlasmaOrdered By: Juvencio Sanchez on 30-48-6028Dclzpd [Moles/Vol]Sodium [Moles/volume] in Serum or Plasma 136-145[facility] - Andersonpecific gravity Test strip (U) [Rel density]Ordered By: Mireya Pichardo on 83-43-5920Ghodcnvk gravity (U) [Rel density] Specific gravity of Urine by Test strip1.001-1.030Providence HospitalTransferrin [Mass/volume] in Serum or PlasmaOrdered By: Juvencio Sanchez on 80-86-8347Xgkponvwhkt [Mass/Vol]Transferrin [Mass/volume] in Serum or Plasma 203-362Providence HospitalTriglyceride [Mass/volume] in Serum or PlasmaOrdered By: Juvencio Sanchez on 28-68-0249Ilebgwqbeqxa [Mass/Vol]Triglyceride [Mass/volume] in Serum or PlasmaHigh0-149[facility] Comment on above:TRIG ATP III CLASSIFICATIONTRIG less than 150 mg/dL NormalTRIG 150-199 mg/dL Borderline highTRIG 200-500 mg/dL High TRIG greater than 500 mg/dL Very highStandard traceable to the Center for Disease Conrtrol and Prevention (CDC) test method.Urate [Mass/volume] in Serum or PlasmaOrdered By: Mireya Pichardo on 97-07-4349Gxemz [Mass/Vol]Urate [Mass/volume] in Serum or Plasma4.4-7.6 Providence HospitalUrea nitrogen [Mass/volume] in Serum or Plasma Ordered By: Juvencio Sanchez on 48-26-6088Imni nitrogen [Mass/Vol]Urea nitrogen [Mass/volume] in Serum or Plasma7-25Providence HospitalUric Acidon 62-51-3084Hanqh [Mass/Vol]6.8 mg/dLNormal4.4-7.6The [facility] Comment on above:Order Comment: Reason for Exam Chronic kidney disease, stage III (moderate);[employer] hy kid w crPerformed By: #### CBC, CMP, FE and TIBC, JOSSUE #### [facility] [address] [place], [place] [address]Urine protein/creatinine ratioOrdered By: Mireya Pichardo on 47-29-4108Cncnmfe/Creatinine (U) [Ratio]Urine protein/creatinine ratioHigh0-200 Providence HospitalUrobilinogen Test strip (U) [Mass/Vol]Ordered By: Mireya Pichardo on 69-73-4109Quxphvibvjkz (U) [Mass/Vol]Urobilinogen [Mass/volume] in Urine by Test stripNormalProvidence HospitalVit. B12/Folate Profileon 29-88-2635Gndqzekeq (Vitamin B12) [Mass/Vol]454 pg/mLNormal 180-914The Former[facility] Physician GroupComment on above:Order Comment: Reason for Exam Chronic kidney disease, stage III (moderate);[employer] terry crPerformed By: #### CBC, CMP, FE and TIBC, JOSSUE #### [facility] [address] [place] [address] TMFHhoddu28.9 ng/mLNormal>5.9The [facility] Comment on above:Order Comment: Reason for Exam Chronic kidney disease, stage III (moderate);[employer] Coyle Comment: Folate reference range: >5.9 ng/ml The WHO technical consultation on folate and vitamin b12 deficiencies has determined that folate concentrations less than 4 ng/ml are considered deficient.Performed By: #### CBC, CMP, FE and TIBC, JOSSUE #### [facility] [address] [place] [id number] USAVitamin B12 ser/plasOrdered By: Mireya Pichardo on 12-15-2023 Cobalamin (Vitamin B12) [Mass/Vol]Vitamin B12 ser/rhmr592-303UbnrbfaxeProvidence HospitalVitamin D 25 Hydroxy Totalon 10-73-6017Jlbwhkh D 25 Hydroxy Total 31.3 ng/dRUprtcs22-518Rcf [facility] Physician GroupComment on above:Order Comment: Reason for Exam Chronic kidney disease, stage III (moderate);[employer] Coyle Comment: VITAMIN D STATUS 25(OH)VITAMIN D RANGE (ng/mL) Deficient <20 Insufficient 20 to <30 Sufficient 30 to 100 Reference: Carmel MF,Daniela NC, Karly-Scott CONLEY, et al. Evaluation,treatment, and prevention of vitamin D deficiency; an Endocrine Society clinical practice guideline. JCEM. 2010; 96(7):1911-30. PERFORMED BY: [facility] [address] [place] [address] PATHOLOGIST SEAL DELIVERY VEHICLE TEAM TECHNICIAN EDYTA ACEVEDO M.D.Performed By: #### CBC, CMP, FE and TIBC, JOSSUE #### [facility] [address] [place] [id number] USAVitamin D+Metabolites [Mass/volume] in Serum or Plasma Ordered By: Mireya Pichardo on 11-89-3549Yfbolmb D+Metabolites [Mass/Vol]Vitamin D+Metabolites [Mass/volume] in Serum or Ppmwoh62-302JjnvbuafhProvidence HospitalComment on above:VITAMIN D STATUS 25(OH)VITAMIN D RANGE (ng/mL) Deficient <20 Insufficient 20 to <88Jbdrcdgoft08 to 100Reference: Carmel MF,Daniela TINAJERO, Anastasiia CONLEY, et al. Evaluation,treatment, and prevention of vitamin D deficiency; an Endocrine Society clinical practice guideline. JCEM. 2010; 96 (7):1911-30.WBC Auto (Bld) [#/Vol]Ordered By: Juvencio Sanchez on 41-69-7267GWN (Bld) [#/Vol]Leukocytes [#/volume] in Blood by Automated count4.1-10.5FWVUMedicine Harrison Community HospitalpH Test strip (U)Ordered By: Mireya Pichardo on 77-88-1000tB (U)pH of Urine by Test strip5.0-9.0Providence HospitalFecal occult blood detection by immunochemistryOrdered By: Juvencio Sanchez on 12-14-2023 Hemoglobin.gastrointestinal Ql (Stl)Fecal occult blood detection by immunochemistryOur Lady of Mercy Hospital - Andersontool Occult Blood (Immuno)on 53-92-1034Rzkwv Occult Blood (Immuno)Occult Blood (Immuno) Negative for Occult Blood by Immunochemical Methodology Reference range = Negative PERFORMED BY: [facility] [address] [place] [address] PATHOLOGIST SEAL DELIVERY VEHICLE TEAM TECHNICIAN EDYTA ACEVEDO M.D.NormalThe Formerly [facility] Physician GroupComment on above:Performed By: #### YAHIRRERAAmara, HECTORUAPLUS #### [facility] [address] [place] [id number] USAAmbulatory Visit Summaryon 02-72-2876Milolzyvhn Visit SummaryAmbulatory Visit Summary [place] :1945 Visit Date:12/11/2023 Ambulatory Visit Instructions Your Diagnosis Bladder cancer Your Care Team Attending Physician - JOHN Haywood APRN, Rose Presley Primary Care Physician - Juvencio Sanchez DO This Is Your Medications List Contact prescribing physician if questions or concerns Non-Formulary Medication (Iron) acetaminophen (Tylenol) acetaminophen-diphenhydrAMINE (Tylenol PM) amlodipine (amLODIPine 5 mg Tab) lisinopril (lisinopril 5 mg Tab) minocycline (minocycline 100 mg oral tablet) multivitamin (Multi Vitamins oral tablet) omeprazole rosuvastatin (rosuvastatin 10 mg Tab) tolterodine (tolterodine 4 mg Cap-ER) ubiquinone (CoQ10) Procedures Performed Cystoscopy (03/15/2023), Cystoscopy (09/07/2022), Cystoscopy (03/09/2022), Cystoscopy (12/08/2021),Cystoscopy (09/15/2021), Cystoscopy (03/17/2021), Cystoscopy (11/10/2020), Cystoscopy (08/12/2020),TURBT - Transurethral resection of bladder tumor (04/08/2020), Cystoscopy (03/09/2020), Transrectalbiopsy of prostate using ultrasound (US) guidance (12/17/2019), Bilateral replacement of knee joints, Colonoscopy, Hip replacement, Procedure on back, Tonsillectomy. Discharge Vitals Temperature (Temporal Artery) 35.9 ???C Heart Rate (Peripheral) 56 Respiratory Rate 16 Blood Pressure 118/63 What to do next You Need to Schedule the Following Appointments Follow Up with MELISSA THORNTON, Akbar Bassett, URL When: Comments: cysto Where: [facility] [place] [address]- Medications What How Much When Instructions Unchanged acetaminophen (Tylenol) By Mouth Contact prescribing physician if questions or concerns Unchanged acetaminophen-diphenhydrAMINE (Tylenol PM) By Mouth Once a day (at bedtime) Contact prescribing physician if questions or concerns Unchanged amlodipine (amLODIPine 5 mg Tab) 1 Tablets By Mouth Every day Contact prescribing physician if questions or concerns Unchanged lisinopril (lisinopril 5 mg Tab) 1 Tablets By Mouth Every day Contact prescribing physician if questions or concerns Unchanged minocycline (minocycline 100 mg oral tablet) 1 Tablets By Mouth Every day Contact prescribing physician if questions or concerns Unchanged multivitamin (Multi Vitamins oral tablet) 1 Tablets By Mouth Every day Contact prescribing physician if questions or concerns Unchanged Non-Formulary Medication (Iron) Contact prescribing physician if questions or concerns Unchanged omeprazole By Mouth Every day Contact prescribing physician if questions or concerns Unchanged rosuvastatin (rosuvastatin 10 mg Tab) 1 Tablets By Mouth Every day Contact prescribing physician if questions or concerns Unchanged tolterodine (tolterodine 4 mg Cap-ER) 1 Capsules By Mouth Every day Contact prescribing physician if questions or concerns Unchanged ubiquinone (CoQ10) 200 Milligram By Mouth Every day Contact prescribing physician if questions or concerns Medications and Immunizations Administered Given Scobey BCG Live (for intravesical use), 50 mg, IntraVesical. For: Bladder cancer BCG, IntraVesical Allergies nafcillin (Unknown) Problems Ongoing - Any problem that you are currently receiving treatment for. Arthritis Asymptomatic microscopic hematuria Bladder cancer Bladder tumor BMI 34.0-34.9,adult BPH with urinary obstruction CKD (chronic kidney disease) Elevated PSA History of bladder cancer Hyperlipidemia Hypertension Incomplete bladder emptying Increased prostate specific antigen (PSA) velocity Nocturia Post-void dribbling Prostate cancer Prostate nodule Testicular atrophy Urinary frequency UTI (urinary tract infection) Historical - Any problem that you are no longer receiving treatment for. Hypercalciuria Patient Survey You may receive a survey via text or e-mail asking about your office visit. Please share your experience with us by completing your survey. We appreciate your feedback and thank you for choosing us for your care. Education Materials Bladder Cancer Bladder cancer is a condition where abnormal tissue (a tumor) grows in the bladder. The bladder is the organ that holds urine. Two tubes (ureters) carry urine from the kidneys to the bladder. The bladder wall is made of layers of tissue. Cancer that spreads through these layers of the bladder wall becomes more difficult to treat. What increases the risk? The following factors may make you more likely to develop this condition: ??? Smoking. ??? Working where there are risks (occupational exposures), such as working with rubber, leather, clothing fabric, dyes, chemicals, or paint. ??? Being 55 years of age or older. ??? Being male. ??? Having long-term bladder inflammation. ??? Having a history of cancer. This includes: ? A family history of bladder cancer. ? Having had bladder cancer before. ? Having had certa (more content not included)...[facility] Urology Office/Clinic Noteon [id number] Office/Clinic NoteUrology Office/Clinic Note Chief Complaint BCG 3 out 3 full dose HPI Staff BCG #2 of 3 - full dose Previous Dx: bladder cancer History of Present Illness I have reviewed and verified the staff HPI to be accurate for this encounter. Portions of this record may have been created with voice recognition artificial intelligence software, specifically [employer], [employer] and or [email or web address]. Substitutions may have occurred due to the inherent limitations of voice recognition and artificial intelligence software. Review of Systems PHQ Score Initial Depression Screen Score: 0 SCORE Physical Exam Vitals & Measurements T: 35.9 ???C(Temporal Artery) HR: 56(Peripheral) RR: 16 BP: 118/63 General: Well developed, well nourished, in no acute distress. Assessment/Plan 1. Bladder cancer (C67.9: Malignant neoplasm of bladder, unspecified) Original dx 03/11/20, TURBT high grade G3 TA TCC. Repeat evolve laser of bladder 12/01/20. Path report from 03/11/21 showed right bladder wall tumor, high grade papillary urothelial neoplasm, noninvasive. Last cysto 09/19/23 , FISH neg Tolerated previous BCG dose w/o complications. UA today w/o signs of blood or infection. Pt denies sxs of UTI at this time. BCG #3 of 3 given today w/o complications. The patient was placed in the appropriate position and under sterile conditions, the urethra is catheterized with a 14 Fr straight catheter and the bladder is emptied. 30 cc of sterile 0.9 NS with one vial of STEPHANIE BCG was placed into the bladder and the straight catheter was removed. The patient will hold the solution in the bladder for two hours, turning every fifteen minutes 1/4 turn to allow coating of the bladder surface. The patient should call the office or present to the Emergency Department for development of fever, chills, or flu- like symptoms. Symptoms such as urinary frequency, urgency, and other bladder irritation symptoms are expected. -Unclear when pt was to have recheck cysto. Will send message to [employer] that treatments are complete. Ordered: Urnls Dip Stick Auto w/o Microscopy POC [id number] Follow-up With When Contact Information MELISSA THORNTON, Akbar Bassett, URL [address] [place] [address]- Additional Instructions: cysto Patient Education Bladder Cancer Problem List/Past Medical History Ongoing Arthritis Asymptomatic microscopic hematuria Bladder cancer Bladder tumor BMI 34.0-34.9,adult BPH with urinary obstruction CKD (chronic kidney disease) Elevated PSA History of bladder cancer Hyperlipidemia Hypertension Incomplete bladder emptying Increased prostate specific antigen (PSA) velocity Nocturia Post-void dribbling Prostate cancer Prostate nodule Testicular atrophy Urinary frequency UTI (urinary tract infection) Historical Hypercalciuria Procedure/Surgical History Cystoscopy (03/15/2023), Cystoscopy (09/07/2022), Cystoscopy (03/09/2022), Cystoscopy (12/08/2021),Cystoscopy (09/15/2021), Cystoscopy (03/17/2021), Cystoscopy (11/10/2020), Cystoscopy (08/12/2020),TURBT - Transurethral resection of bladder tumor (04/08/2020), Cystoscopy (03/09/2020), Transrectalbiopsy of prostate using ultrasound (US) guidance (12/17/2019), Bilateral replacement of knee joints, Colonoscopy, Hip replacement, Procedure on back, Tonsillectomy. Medications amLODIPine 5 mg Tab, 5 mg= 1 tab(s), Oral, Daily CoQ10, 200 mg, Oral, Daily Iron lisinopril 5 mg Tab, 5 mg= 1 tab(s), Oral, Daily minocycline 100 mg oral tablet, 100 mg= 1 tab(s), Oral, Daily Multi Vitamins oral tablet, 1 tab(s), Oral, Daily omeprazole, Oral, Daily rosuvastatin 10 mg Tab, 10 mg= 1 tab(s), Oral, Daily tolterodine 4 mg Cap-ER, 4 mg= 1 cap(s), Oral, Daily, 1 refills Tylenol, Oral Tylenol PM, Oral, Once a day (at bedtime) Allergies nafcillin (Unknown) Social History Alcohol - Denies Alcohol Use, 09/15/2021 Never., 12/11/2023 Substance Abuse Never., 12/11/2023 Tobacco - Low Risk, 09/15/2021 Former smoker, quit more than 30 days ago Tobacco Use:., 12/11/2023 Family History Arthritis: Mother and Father. Hyperlipidemia: Mother and Father. Hypertension: Mother and Father. Primary malignant neoplasm of female breast: Mother. Immunizations Vaccine Date Status BCG 11/27/2023 Given BCG 11/20/2023 Given zoster vaccine, inactivated 02/09/2023 Recorded zoster vaccine, inactivated 11/17/2022 Recorded influenza virus vaccine, inactivated 11/17/2022 Recorded BCG 10/05/2022 Given BCG 09/28/2022 Given BCG 09/21/2022 Given influenza virus vaccine, inactivated 12/29/2021 Recorded BCG 10/20/2021 Given BCG 10/13/2021 Given BCG 10/06/2021 Given tetanus-diphtheria toxoids 04/05/2021 Recorded influenza virus vaccine, inactivated 11/21/2020 Recorded BCG 10/14/2020 Given BCG 10/05/2020 Given BCG 09/28/2020 Given BCG 09/14/2020 Given BCG 09/07/2020 Given BCG 08/31/2020 Given influenza virus vaccine, inactivated 12/ (more content not included)...[facility]:Result Comment: Electronically Signed By: JOHN Haywood APRN, [place] X\.br\Date and Time Signed: 12/11/23 10:28 ESTUrology Office/Clinic NoteUrology Office/Clinic Note Chief Complaint BCG 2 out of 3 half dose HPI Staff BCG # 2 out of 3 half dose Denies hematuria, denies dysuria, denies flank/abdominal pain History of Present Illness I have reviewed and verified the staff HPI to be accurate for this encounter. Portions of this record may have been created with voice recognition artificial intelligence software, specifically [employer], [employer] and or [email or web address]. Substitutions may have occurred due to the inherent limitations of voice recognition and artificial intelligence software. Review of Systems PHQ Score Initial Depression Screen Score: 0 SCORE Physical Exam Vitals & Measurements HR: 64(Peripheral) RR: 16 BP: 132/84 HT: 72 in HT: 184 cm WT: 114 kg WT: 250.8 lb BMI: 33.67 General: Well developed, well nourished, in no acute distress. Assessment/Plan 1. Bladder cancer (C67.9: Malignant neoplasm of bladder, unspecified) Original dx 03/11/20, TURBT high grade G3 TA TCC. Repeat evolve laser of bladder 12/01/20. Path report from 03/11/21 showed right bladder wall tumor, high grade papillary urothelial neoplasm, noninvasive. [1] Last cysto 09/19/23 [1] , FISH neg UA today without signs of blood or infection. BCG #2 of 3 given today without complications. The patient was placed in the appropriate position and under sterile conditions, the urethra is catheterized with a 14 Fr straight catheter and the bladder is emptied. 30 cc of sterile 0.9 NS with one half vial of STEPHANIE BCG was placed into the bladder and the straight catheter was removed. The patient will hold the solution in the bladder for two hours, turning every fifteen minutes 1/4 turn to allow coating of the bladder surface. The patient should call the office or present to the Emergency Department for development of fever, chills, or flu- like symptoms. Symptoms such as urinary frequency, urgency, and other bladder irritation symptoms are expected. Pt received 1/2 dose BCG today due to national shortage. EORTC 52879 trial showed no difference between 1/3 dose and full-dose BCG in patients with high- risk disease. Pt is aware of the reasoning andis amenable to proceed as discussed. -Return to office in 1 week for BCG #3 of 3 Follow-up No qualifying data available Patient Education Bladder Cancer Problem List/Past Medical History Ongoing Arthritis Asymptomatic microscopic hematuria Bladder cancer Bladder tumor BMI 34.0-34.9,adult BPH with urinary obstruction CKD (chronic kidney disease) Elevated PSA History of bladder cancer Hyperlipidemia Hypertension Incomplete bladder emptying Increased prostate specific antigen (PSA) velocity Nocturia Post-void dribbling Prostate cancer Prostate nodule Testicular atrophy Urinary frequency UTI (urinary tract infection) Historical Hypercalciuria Procedure/Surgical History Cystoscopy (03/15/2023), Cystoscopy (09/07/2022), Cystoscopy (03/09/2022), Cystoscopy (12/08/2021),Cystoscopy (09/15/2021), Cystoscopy (03/17/2021), Cystoscopy (11/10/2020), Cystoscopy (08/12/2020),TURBT - Transurethral resection of bladder tumor (04/08/2020), Cystoscopy (03/09/2020), Transrectalbiopsy of prostate using ultrasound (US) guidance (12/17/2019), Bilateral replacement of knee joints, Colonoscopy, Hip replacement, Procedure on back, Tonsillectomy. Medications amLODIPine 5 mg Tab, 5 mg= 1 tab(s), Oral, Daily CoQ10, 200 mg, Oral, Daily Iron lisinopril 5 mg Tab, 5 mg= 1 tab(s), Oral, Daily minocycline 100 mg oral tablet, 100 mg= 1 tab(s), Oral, Daily Multi Vitamins oral tablet, 1 tab(s), Oral, Daily omeprazole, Oral, Daily rosuvastatin 10 mg Tab, 10 mg= 1 tab(s), Oral, Daily tolterodine 4 mg Cap-ER, 4 mg= 1 cap(s), Oral, Daily, 1 refills Tylenol, Oral Tylenol PM, Oral, Once a day (at bedtime) Allergies nafcillin (Unknown) Social History Alcohol - Denies Alcohol Use, 09/15/2021 Tobacco - Low Risk, 09/15/2021 Former smoker, quit more than 30 days ago Tobacco Use:. Never Smokeless Tobacco Use:. Cigarettes, Yes, 11/27/2023 Family History Arthritis: Mother and Father. Hyperlipidemia: Mother and Father. Hypertension: Mother and Father. Primary malignant neoplasm of female breast: Mother. Immunizations Vaccine Date Status BCG 11/27/2023 Given BCG 11/20/2023 Given zoster vaccine, inactivated 02/09/2023 Recorded zoster vaccine, inactivated 11/17/2022 Recorded influenza virus vaccine, inactivated 11/17/2022 Recorded BCG 10/05/2022 Given BCG 09/28/2022 Given BCG 09/21/2022 Given influenza virus vaccine, inactivated 12/29/2021 Recorded BCG 10/20/2021 Given BCG 10/13/2021 Given BCG 10/06/2021 Given tetanus-diphtheria toxoids 04/05/2021 Recorded influenza virus vaccine, inactivated 11/21/2020 Recorded BCG 10/14/2020 Given BCG 10/05/2020 Given BCG 09/28/2020 Given BCG 09/14/2020 Given BCG 09/07/2020 Given BCG 08/31/2020 Given influenza virus vaccine, inactivated (more content not included)...[facility]:Result Comment: Electronically Signed By: JOHN Haywood APRN, [place] X\.br\Date and Time Signed: 12/11/23 08:34 EST Ambulatory Visit Summaryon [id number] Visit SummaryAmbulatory Visit Summary [place] :1945 Visit Date:11/27/2023 Ambulatory Visit Instructions Your Diagnosis Bladder cancer Your Care Team Attending Physician - JOHN Haywood APRN, [place] X Primary Care Physician - Juvencio Sanchez DO This Is Your Medications List Contact prescribing physician if questions or concerns Non-Formulary Medication (Iron) acetaminophen (Tylenol) acetaminophen-diphenhydrAMINE (Tylenol PM) amlodipine (amLODIPine 5 mg Tab) lisinopril (lisinopril 5 mg Tab) minocycline (minocycline 100 mg oral tablet) multivitamin (Multi Vitamins oral tablet) omeprazole rosuvastatin (rosuvastatin 10 mg Tab) tolterodine (tolterodine 4 mg Cap-ER) ubiquinone (CoQ10) Procedures Performed Cystoscopy (03/15/2023), Cystoscopy (09/07/2022), Cystoscopy (03/09/2022), Cystoscopy (12/08/2021),Cystoscopy (09/15/2021), Cystoscopy (03/17/2021), Cystoscopy (11/10/2020), Cystoscopy (08/12/2020),TURBT - Transurethral resection of bladder tumor (04/08/2020), Cystoscopy (03/09/2020), Transrectalbiopsy of prostate using ultrasound (US) guidance (12/17/2019), Bilateral replacement of knee joints, Colonoscopy, Hip replacement, Procedure on back, Tonsillectomy. Discharge Vitals Heart Rate (Peripheral) 64 Respiratory Rate 16 Blood Pressure 132/84 Height 184 cm Height 72 in Weight 114 kg Weight 250.8 lb BMI 33.67 What to do next Scheduled Follow-Up Appointments Monday 9:30 AM EST With: Orzech OYSTER CULLER, ELECTRICAL ESTIMATOR-C, Rose X Where: [facility] [place] [address] [place] [place] [address]- Medications What How Much When Instructions Unchanged acetaminophen (Tylenol) By Mouth Contact prescribing physician if questions or concerns Unchanged acetaminophen-diphenhydrAMINE (Tylenol PM) By Mouth Once a day (at bedtime) Contact prescribing physician if questions or concerns Unchanged amlodipine (amLODIPine 5 mg Tab) 1 Tablets By Mouth Every day Contact prescribing physician if questions or concerns Unchanged lisinopril (lisinopril 5 mg Tab) 1 Tablets By Mouth Every day Contact prescribing physician if questions or concerns Unchanged minocycline (minocycline 100 mg oral tablet) 1 Tablets By Mouth Every day Contact prescribing physician if questions or concerns Unchanged multivitamin (Multi Vitamins oral tablet) 1 Tablets By Mouth Every day Contact prescribing physician if questions or concerns Unchanged Non-Formulary Medication (Iron) Contact prescribing physician if questions or concerns Unchanged omeprazole By Mouth Every day Contact prescribing physician if questions or concerns Unchanged rosuvastatin (rosuvastatin 10 mg Tab) 1 Tablets By Mouth Every day Contact prescribing physician if questions or concerns Unchanged tolterodine (tolterodine 4 mg Cap-ER) 1 Capsules By Mouth Every day Contact prescribing physician if questions or concerns Unchanged ubiquinone (CoQ10) 200 Milligram By Mouth Every day Contact prescribing physician if questions or concerns Medications and Immunizations Administered Given Stephanie BCG Live (for intravesical use), 25 mg, IntraVesical. For: Bladder cancer BCG, IntraVesical Allergies nafcillin (Unknown) Problems Ongoing - Any problem that you are currently receiving treatment for. Arthritis Asymptomatic microscopic hematuria Bladder cancer Bladder tumor BMI 34.0-34.9,adult BPH with urinary obstruction CKD (chronic kidney disease) Elevated PSA History of bladder cancer Hyperlipidemia Hypertension Incomplete bladder emptying Increased prostate specific antigen (PSA) velocity Nocturia Post-void dribbling Prostate cancer Prostate nodule Testicular atrophy Urinary frequency UTI (urinary tract infection) Historical - Any problem that you are no longer receiving treatment for. Hypercalciuria Patient Survey You may receive a survey via text or e-mail asking about your office visit. Please share your experience with us by completing your survey. We appreciate your feedback and thank you for choosing us for your care. [facility] System[facility] Summaryon [id number] Visit SummaryAmbulatory Visit Summary [place] :1945 Visit Date:11/20/2023 Ambulatory Visit Instructions Your Diagnosis Bladder tumor Your Care Team Attending Physician - JOHN Haywood APRN, [place] X Primary Care Physician - Juvencio Sanchez DO This Is Your Medications List Contact prescribing physician if questions or concerns Non-Formulary Medication (Iron) acetaminophen (Tylenol) acetaminophen-diphenhydrAMINE (Tylenol PM) amlodipine (amLODIPine 5 mg Tab) lisinopril (lisinopril 5 mg Tab) minocycline (minocycline 100 mg oral tablet) multivitamin (Multi Vitamins oral tablet) omeprazole rosuvastatin (rosuvastatin 10 mg Tab) tolterodine (tolterodine 4 mg Cap-ER) ubiquinone (CoQ10) Procedures Performed Cystoscopy (03/15/2023), Cystoscopy (09/07/2022), Cystoscopy (03/09/2022), Cystoscopy (12/08/2021),Cystoscopy (09/15/2021), Cystoscopy (03/17/2021), Cystoscopy (11/10/2020), Cystoscopy (08/12/2020),TURBT - Transurethral resection of bladder tumor (04/08/2020), Cystoscopy (03/09/2020), Transrectalbiopsy of prostate using ultrasound (US) guidance (12/17/2019), Bilateral replacement of knee joints, Colonoscopy, Hip replacement, Procedure on back, Tonsillectomy. Discharge Vitals Heart Rate (Peripheral) 63 Respiratory Rate 16 Blood Pressure 113/68 Height 184 cm Height 72 in Weight 114 kg Weight 250.8 lb BMI 33.67 What to do next Scheduled Follow-Up Appointments Monday 9:30 AM EDT With: JOHN Haywood APRN, [place] X Where: [facility] [address] [place] [address]- Monday 9:30 AM EST With: JOHN Haywood APRN, [place] X Where: [facility] [place] [facility] [address] [place] [address]- You Need to Schedule the Following Appointments Follow Up with Chastity STEWART, JOHN, Rose Presley, TRAN, URL When: Comments: 1 wk bcg 2/3 half dose Where: Medications What How Much When Instructions Unchanged acetaminophen (Tylenol) By Mouth Contact prescribing physician if questions or concerns Unchanged acetaminophen-diphenhydrAMINE (Tylenol PM) By Mouth Once a day (at bedtime) Contact prescribing physician if questions or concerns Unchanged amlodipine (amLODIPine 5 mg Tab) 1 Tablets By Mouth Every day Contact prescribing physician if questions or concerns Unchanged lisinopril (lisinopril 5 mg Tab) 1 Tablets By Mouth Every day Contact prescribing physician if questions or concerns Unchanged minocycline (minocycline 100 mg oral tablet) 1 Tablets By Mouth Every day Contact prescribing physician if questions or concerns Unchanged multivitamin (Multi Vitamins oral tablet) 1 Tablets By Mouth Every day Contact prescribing physician if questions or concerns Unchanged Non-Formulary Medication (Iron) Contact prescribing physician if questions or concerns Unchanged omeprazole By Mouth Every day Contact prescribing physician if questions or concerns Unchanged rosuvastatin (rosuvastatin 10 mg Tab) 1 Tablets By Mouth Every day Contact prescribing physician if questions or concerns Unchanged tolterodine (tolterodine 4 mg Cap-ER) 1 Capsules By Mouth Every day Contact prescribing physician if questions or concerns Unchanged ubiquinone (CoQ10) 200 Milligram By Mouth Every day Contact prescribing physician if questions or concerns Medications and Immunizations Administered Given Stephanie BCG Live (for intravesical use), 25 mg, IntraVesical. For: Bladder tumor BCG, IntraVesical Allergies nafcillin (Unknown) Problems Ongoing - Any problem that you are currently receiving treatment for. Arthritis Asymptomatic microscopic hematuria Bladder cancer Bladder tumor BMI 34.0-34.9,adult BPH with urinary obstruction CKD (chronic kidney disease) Elevated PSA History of bladder cancer Hyperlipidemia Hypertension Incomplete bladder emptying Increased prostate specific antigen (PSA) velocity Nocturia Post-void dribbling Prostate cancer Prostate nodule Testicular atrophy Urinary frequency UTI (urinary tract infection) Historical - Any problem that you are no longer receiving treatment for. Hypercalciuria Patient Survey You may receive a survey via text or e-mail asking about your office visit. Please share your experience with us by completing your survey. We appreciate your feedback and thank you for choosing us for your care. Education Materials Bladder Cancer Bladder cancer is a condition where abnormal tissue (a tumor) grows in the bladder. The bladder is the organ that holds urine. Two tubes (ureters) carry urine from the kidneys to the bladder. The bladder wall is made of layers of tissue. Cancer that spreads through these layers of the bladder wall becomes more difficult to treat. What increases the risk? The following factors may make you more likely to dev (more content not included)...[facility]/Cl[facility] Noteon [id number] Office/Clinic NoteUrology Office/Clinic Note Chief Complaint BCG 1 out of 3 HPI Staff BCG #1 of #3 half dose need consent signed Previous DX: bladder cancer Denies dysuria, denies hematuria. Denies abdominal/flank pain History of Present Illness I have reviewed and verified the staff HPI to be accurate for this encounter. Portions of this record may have been created with voice recognition artificial intelligence software, specifically [employer], [employer] and or [email or web address]. Substitutions may have occurred due to the inherent limitations of voice recognition and artificial intelligence software. Review of Systems PHQ Score Initial Depression Screen Score: 0 SCORE Physical Exam Vitals & Measurements HR: 63(Peripheral) RR: 16 BP: 113/68 HT: 72 in HT: 184 cm WT: 114 kg WT: 250.8 lb BMI: 33.67 General: Well developed, well nourished, in no acute distress. Assessment/Plan 1. Bladder tumor (D49.4: Neoplasm of unspecified behavior of bladder) Original dx 03/11/20, TURBT high grade G3 TA TCC. Repeat evolve laser of bladder 12/01/20. Path report from 03/11/21 showed right bladder wall tumor, high grade papillary urothelial neoplasm, noninvasive. [1] Last cysto 09/19/23 UA today without signs of blood or infection. Patient received BCG #1 of 3 half dose today without complications. The patient was placed in the appropriate position and under sterile conditions, the urethra is catheterized with a 14 Fr straight catheter and the bladder is emptied. 30 cc of sterile 0.9 NS with one half vial of STEPHANIE BCG was placed into the bladder and the straight catheter was removed. The patient will hold the solution in the bladder for two hours, turning every fifteen minutes 1/4 turn to allow coating of the bladder surface. The patient should call the office or present to the Emergency Department for development of fever, chills, or flu- like symptoms. Symptoms such as urinary frequency, urgency, and other bladder irritation symptoms are expected. Pt received 1/2 dose BCG today due to national shortage. EORTC 62570 trial showed no difference between 1/3 dose and full-dose BCG in patients with high- risk disease. Pt is aware of the reasoning andis amenable to proceed as discussed. -Return in 1 week for BCG #2 of 3 Ordered: Urnls Dip Stick Auto w/o Microscopy POC [id number] Follow-up With When Contact Information Orzech OYSTER CULLER, ELECTRICAL ESTIMATOR-C, Rose X, FAM, URL Additional Instructions: 1 wk bcg 2/3 half dose Patient Education Bladder Cancer Problem List/Past Medical History Ongoing Arthritis Asymptomatic microscopic hematuria Bladder cancer Bladder tumor BMI 34.0-34.9,adult BPH with urinary obstruction CKD (chronic kidney disease) Elevated PSA History of bladder cancer Hyperlipidemia Hypertension Incomplete bladder emptying Increased prostate specific antigen (PSA) velocity Nocturia Post-void dribbling Prostate cancer Prostate nodule Testicular atrophy Urinary frequency UTI (urinary tract infection) Historical Hypercalciuria Procedure/Surgical History Cystoscopy (03/15/2023), Cystoscopy (09/07/2022), Cystoscopy (03/09/2022), Cystoscopy (12/08/2021),Cystoscopy (09/15/2021), Cystoscopy (03/17/2021), Cystoscopy (11/10/2020), Cystoscopy (08/12/2020),TURBT - Transurethral resection of bladder tumor (04/08/2020), Cystoscopy (03/09/2020), Transrectalbiopsy of prostate using ultrasound (US) guidance (12/17/2019), Bilateral replacement of knee joints, Colonoscopy, Hip replacement, Procedure on back, Tonsillectomy. Medications amLODIPine 5 mg Tab, 5 mg= 1 tab(s), Oral, Daily CoQ10, 200 mg, Oral, Daily Iron lisinopril 5 mg Tab, 5 mg= 1 tab(s), Oral, Daily minocycline 100 mg oral tablet, 100 mg= 1 tab(s), Oral, Daily Multi Vitamins oral tablet, 1 tab(s), Oral, Daily omeprazole, Oral, Daily rosuvastatin 10 mg Tab, 10 mg= 1 tab(s), Oral, Daily tolterodine 4 mg Cap-ER, 4 mg= 1 cap(s), Oral, Daily, 1 refills Tylenol, Oral Tylenol PM, Oral, Once a day (at bedtime) Allergies nafcillin (Unknown) Social History Alcohol - Denies Alcohol Use, 09/15/2021 Tobacco - Low Risk, 09/15/2021 Former smoker, quit more than 30 days ago Tobacco Use:. Never Smokeless Tobacco Use:. Cigarettes, Yes, 11/20/2023 Family History Arthritis: Mother and Father. Hyperlipidemia: Mother and Father. Hypertension: Mother and Father. Primary malignant neoplasm of female breast: Mother. Immunizations Vaccine Date Status zoster vaccine, inactivated 02/09/2023 Recorded zoster vaccine, inactivated 11/17/2022 Recorded influenza virus vaccine, inactivated 11/17/2022 Recorded BCG 10/05/2022 Given BCG 09/28/2022 Given BCG 09/21/2022 Given influenza virus vaccine, inactivated 12/29/2021 Recorded BCG 10/20/2021 Given BCG 10/13/2021 Given BCG 10/06/2021 Given tetanus-diphtheria toxoids 04/05/2021 Recorded influenza virus vaccine, inactivated 11/21/2020 Recorded BCG 10/14/2020 Given BCG 10/05/2020 (more content not included)...[facility] Comment on above:Result Comment: Electronically Signed By: JOHN Haywood APRN, [place] X\.br\Date and Time Signed: 11/20/23 09:50 EDTAppearance of Unspecified specimenon 90-94-1974Benriotspp (Unsp spec)Comment.[facility] HospitalComment on above:Received is 50ml of yellow, clear, preserved urine. Clinical informationon 39-14-2793Phgrkwfh informationComment.[facility] HospitalComment on above:No clinical data specifiedKaryotype [Identifier] in Urine by Fluorescent in situ hybridization (FISH) Narrativeon 09-19-2023 Karyotype FISH Sebastien (U)Comment.[facility] HospitalComment on above: Negative UroVysion Result Fluorescence in situ hybridization (FISH) of cellsrecovered from urine was performed using the [employer] UroVysionKit. A minimum of twenty-five cells was examined, and anabnormal signal pattern was not detected, indicating aNEGATIVE result. The performance characteristics of this test have beenvalidated by Conject. A positive result is thedetection of four or more cells with greater than twosignals for at least two chromosomes (3, and/or 7, and/or17) and/or twelve or more cells with no signal forchromosome 9. Probes: 3cen(D3Z1), 7cen(D7Z1), 9p21(p16),17cen(D17Z1)No Panel Informationon 60-44-1728Lcxofsz Cancer CPT CodesComment.[facility] Comment on above:[id number] at: 4_ - Conject [address] [id number] Director: Jeferson Kam MD, Phone: [phone] Pathologist nameon 73-76-8224Wmkjpyakkky nameComment.[facility] HospitalComment on above:Rahul Do M.D.Urine amylase measurement (enzymatic activity/volume)on 89-23-9901Enqmqqu (U) [Catalytic activity/Vol] Comment.[facility] HospitalComment on above:Unspecified Collection MethodEstimated glomerular filtration rate (GFR) non- Americanon 06-86-5503NTW/1.73 sq M.predicted among non-blacks MDRD (S/P/Bld) [Vol rate/Area]46 mL/min/{1.73_m2}Low>=60[facility] HospitalLaboratory - Chemistry and Chemistry - challengeon 73-29-8694Penndsmgkb [Mass/Vol]1.48 mg/dLHigh0.70-1.30[facility] HospitalGFR/1.73 sq M.predicted MDRD (S/P/Bld) [Vol rate/Area]56 mL/min/{1.73_m2}Low>=60[facility] HospitalUrea nitrogen [Mass/Vol]33.0 mg/dLHigh7.0-18.0[facility] HospitalCarbon dioxide, total [Moles/volume] in Serum or PlasmaOrdered By: Radha Ames on 51-47-4991PR9 [Moles/Vol]24.5 mmol/L21.0-31.0[facility] HospitalChloride [Moles/volume] in Serum or PlasmaOrdered By: Radha Ames on 36-94-4675Oljsmtyn [Moles/Vol]108 mmol/VLown86-962YhtzystbbProvidence HospitalPotassium [Moles/volume] in Serum or PlasmaOrdered By: Radha Ames on 53-42-6666Szrqhzeci [Moles/Vol]5.6 mmol/LHigh3.5-5.1FMercy Health – The Jewish Hospitalerum or plasma anion gap determinationOrdered By: Radha Ames on 74-78-3816Pceyw gap [Moles/Vol]12.1 mmol/L6.0-15.0[facility] Andersonodium [Moles/volume] in Serum or PlasmaOrdered By: Radha Ames on 60-61-5358Ffqplz [Moles/Vol]139 mmol/D234-122CrnygzhjpProvidence HospitalCarbon dioxide, total [Moles/volume] in Serum or PlasmaOrdered By: Radha Ames on 04-23-5976FI2 [Moles/Vol]20.4 mmol/LLow21.0-31.0[facility] HospitalChloride [Moles/volume] in Serum or PlasmaOrdered By: Radha Ames on 09-59-6352Udbiyldj [Moles/Vol]108 mmol/JVrgl92-922CpzquuvhyProvidence HospitalPotassium [Moles/volume] in Serum or PlasmaOrdered By: Radha Ames on 67-68-2869Atfnzgpje [Moles/Vol]4.2 mmol/L3.5-5.1FMercy Health – The Jewish Hospitalerum or plasma anion gap determinationOrdered By: Radha Ames on 69-57-3065Gnyoj gap [Moles/Vol]14.8 mmol/L6.0-15.0[facility] Andersonodium [Moles/volume] in Serum or PlasmaOrdered By: Radha Ames on 24-52-9636Grefbf [Moles/Vol]139 mmol/B140-850ZfcrxzyrnProvidence Hospital Magnesium [Mass/volume] in Serum or PlasmaOrdered By: Roberto Salvador on 42-63-0342Hjlfgqidq [Mass/Vol]1.9 mg/dL1.9-2.7FWVUMedicine Harrison Community Hospital Thyrotropin [Units/volume] in Serum or PlasmaOrdered By: Radha Ames on 85-44-4393PRU Qn1.71 m[IU]/L0.45-5.33[facility] HospitalActivated partial thromboplastin time (aPTT) in platelet poor plasma by coagulation a Ordered By: Kevin Nunez on 02-46-1144wKLC Coag (PPP) [Time]30.4 s25.1-36.5 [facility] HospitalComment on above:A hematocrit value greater than 55% may lead to inaccurate results in coagulation testing. Patientshaving hematocrit values >55% require a special collection tube for coagulation studies. Please contact the laboratory at [phone] for redraw instructions. Alanine aminotransferase [Enzymatic activity/volume] in Serum or PlasmaOrdered By: Kevin Nunez on 08-81-5783HWX [Catalytic activity/Vol]34 U/L7-52 [facility] HospitalAlbumin [Mass/volume] in Serum or Plasma by Bromocresol green (BCG) dye binding methoOrdered By: Kevin Nunez on 37-85-0717Plornfs BCG dye [Mass/Vol]4.1 g/dL3.5-5.7FWVUMedicine Harrison Community HospitalAlkaline phosphatase [Enzymatic activity/volume] in Serum or PlasmaOrdered By: Kevin Nunez on 21-64-8609IRH [Catalytic activity/Vol]112 U/YIowe31-975 [facility] HospitalAspartate aminotransferase [Enzymatic activity/volume] in Serum or PlasmaOrdered By: Kevin Nunez on 06-27-2023 AST [Catalytic activity/Vol]21 U/A00-16CnjncyedtProvidence Hospital Basophils Auto (Bld) [#/Vol]Ordered By: Kevin Nunez on 14-12-8930Dmqqnohub (Bld) [#/Vol]0.1 10*3/uL0.0-0.2FWVUMedicine Harrison Community HospitalBasophils/100 WBC Auto (Bld)Ordered By: Kevin Nunez on 39-14-5084Aqlgquznx/100 WBC (Bld) 0.7 %.[facility] HospitalBilirubin.total [Mass/volume] in Serum or PlasmaOrdered By: Kevin Nunez on 82-01-5071Qldfacznp [Mass/Vol]0.6 mg/dL 0.3-1.0[facility] HospitalCalcium [Mass/volume] in Serum or Plasma Ordered By: Kevin Nunez on 31-26-3814Wevuoui [Mass/Vol]9.2 mg/dL8.6-10.3 [facility] HospitalCarbon dioxide, total [Moles/volume] in Serum or PlasmaOrdered By: Kevin Nunez on 52-62-6451KA0 [Moles/Vol]22.5 mmol/L 21.0-31.0[facility] HospitalChloride [Moles/volume] in Serum or PlasmaOrdered By: Kevin Nunez on 10-35-1370Lrymxyqj [Moles/Vol]109 mmol/L 98-107Prov[facility] HospitalCreatine kinase [Enzymatic activity/volume] in Serum or PlasmaOrdered By: Kevin Nunez on 75-03-8336LR [Catalytic activity/Vol]70 U/H95-059VcctmbmfiProvidence HospitalCreatinine [Mass/volume] in Serum or PlasmaOrdered By: Kevin Nunez on 06-27-2023 Creatinine [Mass/Vol]1.24 mg/dL0.70-1.30[facility] Eosinophils Auto (Bld) [#/Vol]Ordered By: Kevin Nunez on 06-27-2023 Eosinophils (Bld) [#/Vol]0.1 10*3/uL0.0-0.45[facility] Eosinophils/100 WBC Auto (Bld)Ordered By: Kevin Nunez on 06-27-2023 Eosinophils/100 WBC (Bld)1.7 %.[facility] HospitalErythrocyte distribution width Auto (RBC) [Ratio]Ordered By: Kevin Nunez on 06-27-2023 Erythrocyte distribution width (RBC) [Ratio]15.3 %High12.0-14.8Prov[facility] HospitalGlobulin Calc (S) [Mass/Vol]Ordered By: Kevin Nunez on 18-43-3026Dkecehiq (S) [Mass/Vol]3.0 g/dLProvidence Hospital Glucose [Mass/volume] in Serum or PlasmaOrdered By: Kevin Nunez on 79-35-2233Vsggllh [Mass/Vol]99 mg/yB87-705AihsazwweProvidence Hospital Comment on above:ADA recommended reference rangeRandom Glucose Reference Range is dependent on time and content of last meal. Glucose of more than 200 mg/dL in a nonstressed, ambulatory subject supports the diagnosisof Diabetes Mellitus. Hematocrit Auto (Bld) [Volume fraction]Ordered By: Kevin Nunez on 13-94-8836Twtpiaptki (Bld) [Volume fraction]38.4 %Low38.8-50.0[facility] HospitalHemoglobin [Mass/volume] in BloodOrdered By: Kevin Nunez on 19-60-7551Doyqsyznqv (Bld) [Mass/Vol]12.6 g/dLLow13.0-17.0[facility] HospitalINR in Platelet poor plasma by Coagulation assayOrdered By: Kevin Nunez on 44-63-2812OUW Coag (PPP) [Relative time]1.1 {INR}[facility] HospitalComment on above:INR Therapeutic Range A) Pre- and Peroperative OAT started two weeks before surgery. NOT HIP SURGERY: 1.5 - 2.5 HIP SURGERY: 2 - 3B) Primary and secondary prevention of venous THROMBOSIS: 2 - 3C) Active venous thrombosis, pulmonary embolismand prevention of recurrent venous thrombosis: 2 - 3D) Prevention of arterial thromboembolismincluding patients with mechanical heart valves: 3 - 4.5Leukocytes [#/volume] corrected for nucleated erythrocytes in Blood by Automated counOrdered By: Kevin Nunez on 70-03-1338ZNV corrected for nucl RBC Auto (Bld) [#/Vol]7.7 10*3/uL 4.1-10.5FWVUMedicine Harrison Community HospitalLymphocytes Auto (Bld) [#/Vol]Ordered By: Kevin Nunez on 40-11-7909Bzqhnngllyc (Bld) [#/Vol]1.2 10*3/uL1.00-4.8 [facility] HospitalLymphocytes/100 WBC Auto (Bld)Ordered By: Kevin Nunez on 07-24-9767Ggekmynejpm/100 WBC (Bld)15.0 %.[facility] HospitalMCH Auto (RBC) [Entitic mass]Ordered By: Kevin Nunez on 64-29-8177QZJ (RBC) [Entitic mass]29.6 pg27.5-35.2FWayne HealthCare Main CampusHC Auto (RBC) [Mass/Vol]Ordered By: Kevin Nunez on 24-48-2597UQKP (RBC) [Mass/Vol]32.7 g/dL32.5-35.6FWayne HealthCare Main CampusV Auto (RBC) [Entitic vol]Ordered By: Kevin Nunez on 84-44-6370REQ (RBC) [Entitic vol]90.7 fL83.5-101Prov[facility] HospitalMagnesium [Mass/volume] in Serum or PlasmaOrdered By: Kevin Nunez on 06-27-2023 Magnesium [Mass/Vol]1.5 mg/dL1.9-2.7FWVUMedicine Harrison Community HospitalMonocyte distribution width [Entitic volume] in Blood by AutomatedOrdered By: Kevin Nunez on 77-36-5922Ptlrcfjw distribution width Auto (Bld) [Entitic vol]18.19 % 0.00-20.00Prov[facility] HospitalMonocytes Auto (Bld) [#/Vol]Ordered By: Kevin Nunez on 87-36-7087Xecjdpuog (Bld) [#/Vol]1.0 10*3/uLHigh0.0-0.8 [facility] HospitalMonocytes/100 WBC Auto (Bld)Ordered By: Kevin Nunez on 60-01-2293Gwysglcnt/100 WBC (Bld)13.3 %.[facility] HospitalNatriuretic peptide B [Mass/Vol]Ordered By: Kevin Nunez on 89-39-5707Tkqfqkrrspt peptide B (Bld) [Mass/Vol]713.0 pg/mLHigh5-100Prov[facility] HospitalNeutrophils Auto (Bld) [#/Vol]Ordered By: Kevin Nunez on 09-81-1818Ukbapzjbcrj (Bld) [#/Vol]5.4 10*3/uL1.8-7.7FWVUMedicine Harrison Community HospitalNeutrophils/100 WBC Auto (Bld)Ordered By: Kevin Nunez on 40-52-3312Hqfcrgunxyf/100 WBC (Bld)69.3 %.[facility] HospitalNo Panel InformationOrdered By: Kevin Nunez on 03-29-8342Yjwmfklac GFR (CKD-EPI)59.511 mL/MinProvidence HospitalPharmacy Creatinine Clearance (Chem65.54Prov[facility] HospitalNucleated erythrocytes [Presence] in Blood by Automated countOrdered By: Kevin Nunez on 46-27-3466Vymvosdfl RBC Auto Ql (Bld)0.1 /100{WBC}0-0.5FWVUMedicine Harrison Community HospitalPlatelet mean volume Auto (Bld) [Entitic vol]Ordered By: Kevin Nuenz on 34-98-5999Kiiarwls mean volume (Bld) [Entitic vol]9.4 fL6.6-10.1 [facility] HospitalPlatelets Auto (Bld) [#/Vol]Ordered By: Kevin Nunez on 73-04-4345Wmbtpmexl (Bld) [#/Vol]238 10*3/eB977-058 [facility] HospitalPotassium [Moles/volume] in Serum or Plasma Ordered By: Kevin Nunez on 98-18-3728Ddodlznpd [Moles/Vol]4.5 mmol/L 3.5-5.1FWVUMedicine Harrison Community HospitalProtein [Mass/volume] in Serum or Plasma Ordered By: Kevin Nunez on 37-88-1030Ehbguiz [Mass/Vol]7.1 g/dL6.4-8.9 [facility] HospitalProthrombin time (PT)Ordered By: Kevin Nunez on 77-18-7672FQ Coag (PPP) [Time]12.9 s9.0-12.9[facility] HospitalComment on above:A hematocrit value greater than 55% may lead to inaccurate results in coagulation testing. Patientshaving hematocrit values >55% require a special collection tube for coagulation studies. Please contact the laboratory at [phone] for redraw instructions.RBC Auto (Bld) [#/Vol]Ordered By: Kevin Nunez on 57-08-6328CFY (Bld) [#/Vol]4.24 10*6/uL3.90-5.60 [facility] Andersonerum or plasma albumin/globulin mass ratio Ordered By: Kevin Nunez on 45-38-0178Idqzxmx/Globulin [Mass ratio]1.4 {ratio}[facility] Andersonerum or plasma anion gap determination Ordered By: Kevin Nunez on 32-31-0746Pvsuh gap [Moles/Vol]13.0 mmol/L 6.0-15.0[facility] - Andersonodium [Moles/volume] in Serum or PlasmaOrdered By: Kevin Nunez on 37-62-1148Gzpuav [Moles/Vol]140 mmol/L 136-145[facility] HospitalTroponin I.cardiac [Mass/volume] in Serum or Plasma by Detection limit <= 0.01 ng/Ordered By: Kevin Nunez on 49-20-4953Ejbieoyn I.cardiac DL <= 0.01 ng/mL [Mass/Vol]10.1 pg/mL0.0-20.0 [facility] HospitalUrea nitrogen [Mass/volume] in Serum or Plasma Ordered By: Kevin Nunez on 11-12-7247Ygzy nitrogen [Mass/Vol]25 mg/dL7-25 [facility] HospitalWBC Auto (Bld) [#/Vol]Ordered By: Kevin Nunez on 21-01-6601IFY (Bld) [#/Vol]7.7 10*3/uL4.1-10.5FWVUMedicine Harrison Community HospitalCNOVon 09-65-3143IIMUUbdnwl Visit (AIDA) DONNYINDIANA PELAEZ ([id number]) 1945 M [place] Date Time Provider Department 03/21/23 2:00 PM SYMONE WOODY During your visit today, we recorded the following information about you: Symone Woody APRN.CNP 03/21/2023 2:34 PM Signed Follow up Visit Patient Name: Indiana Hines MR #: [id number] Age: [age] year old Date: March 09, 2023 Referred by: Patient was last seen on 12/13/2022 for the diagnosis of (M48.062) Spinal stenosis of lumbar region with neurogenic claudication (primary encounter diagnosis . The following plan of care was recommended 1) Frequent rest breaks to sit if having pain with walking/standing 2) Restart gabapentin 600mg at bedtime, #30, refill 2 3) Continue with home exercises/stretches 4) RTC 3 months. Was there relief from this treatment? Gabapentin not doing anything. Treatment agreement on file: No Last toxicology screen done:N/A This Episode: Pattern: Intermittent and Recurrent after with walking or prolonged standing . I can walk longer then I can stand. Character: Dull and Sharp. Severity: VAS Pain: 0-10/10 Current Location: LBP Radiation: non-radiating. Associated Signs/Symptoms: None. Sensory/Motor Changes: None. Changes in Bowel/Bladder Control?: No. Number of hours of sleep per night: 6 Is sleep interrupted by pain? No. Patient feels safe at home: Yes PREVIOUS TREATMENTS LASTING SIX WEEKS IN THE LAST SIX MONTHS Active conservative therapy lasting 6 weeks in the last six months (see below) 1. Physical therapy: No 2. Home exercise program after PT: No 3. Occupational therapy: No 4. 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 Medical devises: Cane 2. Acupuncture: No 3. Tens unit: No 4. Prescription pain medication: Yes GABAPENTIN 5. NSAIDS: Hx of liver issues. Digital Account Supervisor: Mandy Hobbs RN Patient Entered Questionnaires PROMIS Score Percentiles PROMIS Global Health Scale 11/20/2019 09/07/2022 12/09/2022 Physical Health Percentile - 10 7 Mental Health Percentile 53 63 43 Physical Health 11/18/2019 09/07/2022 12/09/2022 Physical Function Percentile 24* 8 7 Pain Interference Percentile 8 8 8 Percentiles provide an indication of how the patient's score ranks in relation to the general population. Higher percentile rankings indicate better function/quality of life. 50th percentile is the average of the general population and indicates half of respondents had a worse score. > 31st percentile is within normal limits or better * < 31st percentile is at least ? SD worse than population, which may be clinically relevant < 16th percentile is at least 1 SD worse than population and warrants attention Imaging: None recent 06/19/19 MRI Lumbar RESULT: Counting reference: Lumbosacral junction. For the purposes of this report, L4-5 is considered the level of the iliac crest and assume there are 5 lumbar-type vertebrae. Anatomic variant: None. Alignment: Mild scoliotic curvature convex right, apex L3-L4. Sagittal alignment is grossly normal. Bone marrow signal/fracture: Old Schmorl's nodes lower L2 and upper L3. No other pathologic marrow infiltration. Conus: Distal cord terminates normally at L1-L2. Paraspinal soft tissues: Obesity. No paraspinal masses. Lower thoracic spine: Canal and foramina are normally patent at T10-T11 and T11-T12. T12-L1: Canal and foramina are patent. L1-L2: Mild loss of disc height, partial loss of T2 hyperintensity in the disc, and facet degenerative change. Central thecal sac is patent. Foramina are patent. L2-L3: Disc bulging, facet degenerative change. Moderate canal narrowing, particularly left lateral recess. Mild right lateral recess narrowing. Loss of disc height and facet degenerative change contributes to severe bilateral foraminal narrowing. L3-L4: Disc bulging and facet degenerative change. Moderate-severe narrowing of spinal canal. Severe left and moderate right lateral recess narrowing likely contributing to radiculopathy. Loss of disc height and bony degenerative change contributes to moderate bilateral foraminal narrowing. L4-L5: Disc bulging and facet degenerative change. Moderate to severe spinal stenosis including the lateral recesses. Neural foramina remain patent. L5-S1: Disc bulging and facet degenerative change. Shallow central protrusion. No direct compression of either descending S1 nerve root sleeve. Narrowing of the central thecal sac primarily related to epidural lipomatosis. Right neural foramen is patent. Moderate to severe left foraminal narrowing. Sacrum and iliac wings: No marrow edema. Procedures: 11/07/22 Dr Yessy Lo Caudal ANNIE OARRS: PDMP website checked and validated. All pr (more content not included)...Normal [facility] [id number] Visit (PAINCR) INDIANA HINES ([id number]) 1945 M [place] Date Time Provider Department 12/13/22 2:00 PM SYMONE WOODY PAINCR During your visit today, we recorded the following information about you: Symone Woody APRN.COOKEE 12/13/2022 2:53 PM Signed Follow up Visit Patient Name: Indiana Hines MR #: [id number] Age: [age] year old Date: December 13, 2022 Referred by: Patient was last seen on 09/14/22 for the diagnosis of Spinal stenosis, lumbar region with neurogenic claudication Lumbar spondylosis. The following plan of care was recommended 1) Schedule Caudal epidural steroid injection - neurogenic claudication 2) Continue with tylenol arthritis over the counter per instructions 3) RTC 4-6 weeks after injection Was there relief from this treatment? No. How long did the patient get relief from this treatment? He did not get relief. What percentage of pain did the patient feel was relieved with this treatment? 0% Treatment agreement on file: No Last toxicology screen done:N/A This Episode: Pattern: Daily. Character: Aching. Severity: VAS Pain: 8/10 Current Location: Lower back Radiation: non-radiating. Associated Signs/Symptoms: None. Sensory/Motor Changes: Difficulty using stairs or Tripping. Changes in Bowel/Bladder Control?: No. Number of hours of sleep per night: 6-7 hours Is sleep interrupted by pain? No. Patient feels safe at home: Yes Allergies: ALLERGIES Allergen Reactions Nafcillin Other: See Comments affected kidneys per pt and family Current Outpatient Medications: minocycline (MINOCIN, DYNACIN) 100 mg capsule Take 1 capsule by mouth once daily. tiZANidine (ZANAFLEX) 2 mg tablet Take 1 tablet by mouth twice daily as needed. gabapentin (NEURONTIN) 300 mg capsule 1 Capsule FOR 3 NIGHTS, THEN 2 CAPSULES FOR 3 NIGHTS THEN 3 CAPSULES EVERY NIGHT ferrous sulfate (IRON ORAL) Take 65 mg by mouth three times a week. docosahexaenoic acid/epa (FISH OIL ORAL) Take 1,000 mg by mouth once daily. lisinopril (ZESTRIL, PRINIVIL) 5 mg tablet TK 1 T PO QD acetaminophen (TYLENOL) 500 mg tablet Take 2 tablets by mouth every 8 hours as needed. COQ10, UBIQUINOL, ORAL Take 200 mg by mouth once daily. esomeprazole (NEXIUM) 40 mg capsule Take 40 mg by mouth once daily. therapeutic multivitamin (THERA VITAMIN) tablet Take 1 tablet by mouth once daily. ascorbic acid (VITAMIN C) 500 mg tablet Take 1 tablet by mouth twice daily with meals. amLODIPine (NORVASC) 5 mg tablet Take 1 tablet by mouth once daily. rosuvastatin (CRESTOR) 5 mg tablet Take 1 tablet by mouth daily at bedtime. Digital Account Supervisor: Kelly Lyon MA Imagin06/19/2019 MRI Lumbar Spine RESULT: Counting reference: Lumbosacral junction. For the purposes of this report, L4-5 is considered the level of the iliac crest and assume there are 5 lumbar-type vertebrae. Anatomic variant: None. Alignment: Mild scoliotic curvature convex right, apex L3-L4. Sagittal alignment is grossly normal. Bone marrow signal/fracture: Old Schmorl's nodes lower L2 and upper L3. No other pathologic marrow infiltration. Conus: Distal cord terminates normally at L1-L2. Paraspinal soft tissues: Obesity. No paraspinal masses. Lower thoracic spine: Canal and foramina are normally patent at T10-T11 and T11-T12. T12-L1: Canal and foramina are patent. L1-L2: Mild loss of disc height, partial loss of T2 hyperintensity in the disc, and facet degenerative change. Central thecal sac is patent. Foramina are patent. L2-L3: Disc bulging, facet degenerative change. Moderate canal narrowing, particularly left lateral recess. Mild right lateral recess narrowing. Loss of disc height and facet degenerative change contributes to severe bilateral foraminal narrowing. L3-L4: Disc bulging and facet degenerative change. Moderate-severe narrowing of spinal canal. Severe left and moderate right lateral recess narrowing likely contributing to radiculopathy. Loss of disc height and bony degenerative change contributes to moderate bilateral foraminal narrowing. L4-L5: Disc bulging and facet degenerative change. Moderate to severe spinal stenosis including the lateral recesses. Neural foramina remain patent. L5-S1: Disc bulging and facet degenerative change. Shallow central protrusion. No direct compression of either descending S1 nerve root sleeve. Narrowing of the central thecal sac primarily related to epidural lipomatosis. Right neural foramen is patent. Moderate to severe left foraminal narrowing. Sacrum and iliac wings: No marrow edema. Procedures: 11/07/22 Dr. Yessy Lo Caudal ANNIE OARRS: PDMP website checked and validated. No controlled substance prescriptions were reported. 12/13/2022 by Symone Woody APRN.COOKEE Current Medications: Tylenol OTC Anticoagulation: none DM: no Physical Therapy: 2019 GFR: none recent TENA: 09/14/22 A (more content not included)...[facility] Alanine aminotransferase [Enzymatic activity/volume] in Serum or PlasmaOrdered By: Juvencio Sanchez on 40-90-0961LYD [Catalytic activity/Vol]11 U/L7-52[facility] HospitalAlbumin [Mass/volume] in Serum or Plasma by Bromocresol green (BCG) dye binding methoOrdered By: Juvencio Sanchez on 80-38-3418Ryivrlk BCG dye [Mass/Vol]4.2 g/dL3.5-5.7FWVUMedicine Harrison Community HospitalAlkaline phosphatase [Enzymatic activity/volume] in Serum or PlasmaOrdered By: Juvencio Sanchez on 91-29-2513QYN [Catalytic activity/Vol]166 U/X59-407QdxlmsugdProvidence HospitalAspartate aminotransferase [Enzymatic activity/volume] in Serum or PlasmaOrdered By: Juvencio Sanchez on 74-01-0023QUT [Catalytic activity/Vol]18 U/L 13-39[facility] HospitalAutomated erythrocytes count in urine sediment (number/area)Ordered By: Mireya Pichardo on 43-25-1739DYK Auto (Urine sed) [#/Area]0-1 [HPF]0-4FWVUMedicine Harrison Community HospitalAutomated leukocytes count in urine sediment (number/area)Ordered By: Mireya Pichardo on 09-55-2566ESS Auto (Urine sed) [#/Area]0-1 [HPF]0-4FWVUMedicine Harrison Community HospitalBasophils Auto (Bld) [#/Vol]Ordered By: Juvencio Sancehz on 37-31-2311Piechycro (Bld) [#/Vol]0.0 10*3/uL0.0-0.2FWVUMedicine Harrison Community HospitalBasophils/100 WBC Auto (Bld) Ordered By: Juvencio Sanchez on 76-42-9664Swkjwkspq/100 WBC (Bld)0.8 %.[facility] HospitalBilirubin Test strip Ql (U)Ordered By: Mireya Pichardo on 76-35-9161Lbatauupg Ql (U)NegativeNegativeProvidence Hospital Bilirubin.total [Mass/volume] in Serum or PlasmaOrdered By: Juvencio Sacnhez on 03-12-4821Uwjlkoqby [Mass/Vol]0.6 mg/dL0.3-1.0[facility] Calcium [Mass/volume] in Serum or PlasmaOrdered By: Juvencio Sacnhez on 12-08-2022 Calcium [Mass/Vol]9.4 mg/dL8.6-10.3FWVUMedicine Harrison Community HospitalCarbon dioxide, total [Moles/volume] in Serum or PlasmaOrdered By: Juvencio Sanchez on 11-09-7979MK5 [Moles/Vol]27.5 mmol/L21.0-31.0[facility] Chloride [Moles/volume] in Serum or PlasmaOrdered By: Juvencio Sanchez on 12-08-2022 Chloride [Moles/Vol]106 mmol/C88-569LljnebrpxProvidence HospitalCholesterol [Mass/volume] in Serum or PlasmaOrdered By: Juvencio Sanchez on 12-08-2022 Cholesterol [Mass/Vol]134 mg/hI070-528JdpprovqdProvidence HospitalComment on above:Chol less than 200 mg/dl low riskChol 201-239 mg/dl borderline riskChol 240 mg/dl and greater high riskCholesterol in LDL Calc [Mass/Vol]Ordered By: Juvencio Sanchez on 24-88-9470Dgxuonthsqp in LDL [Mass/Vol]68 mg/dL0-100Providence HospitalComment on above:LDL ATP III CLASSIFICATIONLDL less than 100 mg/dL OptimalLDL 100-129 mg/dL Near or above jjsazrkBDQ533-728 mg/dL Borderline highLDL 160-189 mg/dL HighLDL greater than 189 mg/dL Very high Cholesterol in VLDL Calc [Mass/Vol]Ordered By: Juvencio Sanchez on 12-08-2022 Cholesterol in VLDL [Mass/Vol]23 mg/dLProvidence HospitalColor Auto (U)Ordered By: Mireya Pichardo on 94-14-3094Zdemq (U)YellowYellowProvidence HospitalCreatinine [Mass/volume] in Serum or PlasmaOrdered By: Juvencio Sanchez on 34-70-2547Xosovwirbq [Mass/Vol]1.16 mg/dL0.70-1.30Providence HospitalCreatinine [Mass/volume] in UrineOrdered By: Mireya Pichardo on 07-58-9192Apziphyzrr (U) [Mass/Vol]163.0 mg/dL14.0-26.0Providence HospitalEosinophils Auto (Bld) [#/Vol]Ordered By: Juvencio Sanchez on 02-56-0135Kxzxqssepiq (Bld) [#/Vol]0.2 10*3/uL0.0-0.45Providence HospitalEosinophils/100 WBC Auto (Bld)Ordered By: Juvencio Sanchez on 12-08-2022 Eosinophils/100 WBC (Bld)3.6 %.Providence HospitalErythrocyte distribution width Auto (RBC) [Ratio]Ordered By: Juvencio Sanchez on 12-08-2022 Erythrocyte distribution width (RBC) [Ratio]14.6 %12.0-14.8Providence HospitalFerritin [Mass/volume] in Serum or PlasmaOrdered By: Juvencio Sanchez on 72-66-8331Dsccinjd [Mass/Vol]237.4 ng/mL23.9-336.2FWVUMedicine Harrison Community HospitalGlobulin Calc (S) [Mass/Vol]Ordered By: Juvencio Sanchez on 85-77-0431Risiwdvp (S) [Mass/Vol]2.2 g/dLProvidence HospitalGlucose [Mass/volume] in Serum or PlasmaOrdered By: Juvencio Sanchez on 17-88-4823Mrhuypv [Mass/Vol]97 mg/dL 70-100Providence HospitalComment on above:ADA recommended reference rangeRandom Glucose Reference Range is dependent on time and content of last meal. Glucose of more than 200 mg/dL in a nonstressed, ambulatory subject supports the diagnosisof Diabetes Mellitus.Glucose mean value [Mass/volume] in Blood Estimated from glycated hemoglobinOrdered By: Juvencio Sanchez on 20-09-2290Hfeemsf glucose Estimated from glycated hemoglobin (Bld) [Mass/Vol]126 mg/dLProvidence HospitalHematocrit Auto (Bld) [Volume fraction]Ordered By: Juvencio Sanchez on 11-16-3939Oqyfstpqae (Bld) [Volume fraction]38.4 %38.8-50.0Providence HospitalHemoglobin A1c percentageOrdered By: Juvencio Sanchez on 80-36-1704EgG7k (Bld) [Mass fraction]6.0 % 4.3-5.6FWVUMedicine Harrison Community HospitalComment on above:Increased risk for diabetes: 5.7 - 6.4diabetes: >6.4glycemic control for adults with diabetes: &l t;7.0Hemoglobin [Mass/volume] in BloodOrdered By: Juvencio Sanchez on 12-08-2022 Hemoglobin (Bld) [Mass/Vol]12.7 g/dL13.0-17.0[facility] Iron [Mass/volume] in Serum or PlasmaOrdered By: Juvencio Sanchez on 63-70-5715Iycx [Mass/Vol]86 ug/eY66-952FgmzbuqgkProvidence HospitalIron binding capacity [Mass/volume] in Serum or PlasmaOrdered By: Juvencio Sanchez on 86-70-5085Zdzg binding capacity [Mass/Vol]288 ug/tS664-347JgscdhakvProvidence HospitalIron saturation [Mass Fraction] in Serum or PlasmaOrdered By: Juvencio Sanchez on 09-67-9813Uhzb saturation [Mass fraction]29.9 %20-50Providence HospitalKetones Auto test strip (U) [Mass/Vol]Ordered By: Mireya Pichardo on 22-99-4789Awycttw (U) [Mass/Vol]TraceNegativeProvidence Hospital Laboratory - UrinalysisOrdered By: Mireya Pichardo on 50-87-1425Ljwvndd casts LM Ql (Urine sed)None seen [LPF]0-8Providence HospitalLeukocytes [#/volume] corrected for nucleated erythrocytes in Blood by Automated coun Ordered By: Juvencio Sanchez on 24-77-5662CJW corrected for nucl RBC Auto (Bld) [#/Vol]5.1 10*3/uL4.1-10.5FWVUMedicine Harrison Community HospitalLymphocytes Auto (Bld) [#/Vol]Ordered By: Juvencio Sanchez on 78-03-7908Ykozfxjlbvz (Bld) [#/Vol]0.9 10*3/uL1.00-4.8Providence HospitalLymphocytes/100 WBC Auto (Bld) Ordered By: Juvencio Sanchez on 63-43-8315Dgjsnerpuaq/100 WBC (Bld)17.4 %.[facility] HospitalH Auto (RBC) [Entitic mass]Ordered By: Juvencio Sanchez on 96-08-5183DQT (RBC) [Entitic mass]30.3 pg27.5-35.2FWVUMedicine Harrison Community HospitalMCHC Auto (RBC) [Mass/Vol]Ordered By: Juvencio Sanchez on 88-91-1749NJCZ (RBC) [Mass/Vol]33.0 g/dL32.5-35.6FWVUMedicine Harrison Community HospitalMCV Auto (RBC) [Entitic vol]Ordered By: Juvencio Sanchez on 09-09-9894KFR (RBC) [Entitic vol]91.8 fL83.5-101Providence HospitalMagnesium [Mass/volume] in Serum or PlasmaOrdered By: Mireya Pichardo on 02-70-5418Tteeixizp [Mass/Vol]1.9 mg/dL1.9-2.7 Providence HospitalMonocytes Auto (Bld) [#/Vol]Ordered By: Juvencio Sanchez on 24-61-2390Zyexbpurz (Bld) [#/Vol]0.5 10*3/uL0.0-0.8Providence HospitalMonocytes/100 WBC Auto (Bld)Ordered By: Juvencio Sanchez on 12-08-2022 Monocytes/100 WBC (Bld)10.7 %.Providence HospitalNeutrophils Auto (Bld) [#/Vol]Ordered By: Juvencio Sanchez on 89-42-6863Tldoceqjggl (Bld) [#/Vol]3.4 10*3/uL1.8-7.7FWVUMedicine Harrison Community HospitalNeutrophils/100 WBC Auto (Bld) Ordered By: Juvencio Sanchez on 02-47-5701Ebqeyuybxnl/100 WBC (Bld)67.5 %.Providence HospitalNitrite Test strip Ql (U)Ordered By: Mireya Pichardo on 23-60-9917Dqkvuya Ql (U)NegativeNegativeProvidence HospitalNo Panel InformationOrdered By: Juvencio Sanchez on 47-70-0995Xpxqdnghu GFR (CKD-EPI)> 60.0 mL/MinProvidence HospitalPharmacy Creatinine Clearance (Chem N/AFWVUMedicine Harrison Community HospitalNucleated erythrocytes [Presence] in Blood by Automated countOrdered By: Juvencio Sanchez on 09-02-4893Pnjptglsf RBC Auto Ql (Bld)0.1 /100{WBC}0-0.5FWVUMedicine Harrison Community HospitalParathyrin.intact [Mass/volume] in Serum or PlasmaOrdered By: Mireya Pichardo on 12-08-2022 Parathyrin.intact [Mass/Vol]69.1 pg/cJ38-10IisxmclkeProvidence Hospital Phosphate [Mass/volume] in Serum or PlasmaOrdered By: Mireya Pichardo on 12-08-2022 Phosphate [Mass/Vol]3.6 mg/dL3.7-7.2FWVUMedicine Harrison Community HospitalPlatelet adequacy [Presence] in Blood by Light microscopyOrdered By: Juvencio Sanchez on 24-31-8651Tlnaqidjr LM Ql (Bld)NormalNormWood County Hospital Platelet mean volume Auto (Bld) [Entitic vol]Ordered By: Juvencio Sanchez on 84-27-1851Dxahnmga mean volume (Bld) [Entitic vol]9.5 fL6.6-10.1FWVUMedicine Harrison Community HospitalPlatelet morphology finding [Identifier] in BloodOrdered By: Juvencio Sanchez on 07-41-0213Ifqmvoam morphology finding Nom (Bld)NormalNormal Providence HospitalPlatelets Auto (Bld) [#/Vol]Ordered By: Juvencio Sanchez on 29-60-1001Vudronmel (Bld) [#/Vol]194 10*3/kV430-968TbjslhatgProvidence HospitalPotassium [Moles/volume] in Serum or PlasmaOrdered By: Juvencio Sanchez on 28-23-0977Vgrwzagxx [Moles/Vol]4.6 mmol/L3.5-5.1FWVUMedicine Harrison Community HospitalProtein Auto test strip (U) [Mass/Vol]Ordered By: Mireya Pichardo on 23-07-4993Lmnvwuc (U) [Mass/Vol]Trace mg/dLNegativeProvidence HospitalProtein [Mass/volume] in Serum or PlasmaOrdered By: Juvencio Sanchez on 09-02-1340Qvrvoey [Mass/Vol]6.4 g/dL6.4-8.9[facility] Protein [Mass/volume] in UrineOrdered By: Mireya Pichardo on 21-91-0191Xskriju (U) [Mass/Vol]38 mg/dL0-9Providence HospitalRBC Auto (Bld) [#/Vol] Ordered By: Juvencio Sanchez on 00-00-7784KXI (Bld) [#/Vol]4.18 10*6/uL3.90-5.60 [facility] HospitalRBC morphologyOrdered By: Juvencio Sanchez on 49-81-7607UIU morphology finding Nom (Bld)NormalNormalOur Lady of Mercy Hospital - Andersonerum or plasma albumin/globulin mass ratioOrdered By: Juvencio Sanchez on 36-83-6012Lnvbyds/Globulin [Mass ratio]1.9 {ratio}[facility] - Andersonerum or plasma anion gap determinationOrdered By: Juvencio Sanchez on 11-94-9359Xkpfi gap [Moles/Vol]12.1 mmol/L6.0-15.0[facility] - Andersonerum or plasma high density lipoprotein (HDL) cholesterol measurement Ordered By: Juvencio Sanchez on 17-30-3437Ngyqmhylvil in HDL [Mass/Vol]43 mg/dL23-92 Providence HospitalComment on above:HDL CHOL ATP-III CLASSIFICATION Cardiovascular RiskHDL > or equal to 60 mg/dL LOWHDL < 40 mg/dL HIGHSerum or plasma total cholesterol/high density lipoprotein (HDL) cholesterol mass ratOrdered By: Juvencio Sanchez on 43-66-9010Mwtcsjrlsnu.total/Cholesterol in HDL [Mass ratio]3.1 {ratio}<5.0[facility] - Andersonodium [Moles/volume] in Serum or PlasmaOrdered By: Juvencio Sanchez on 12-95-2843Rscfal [Moles/Vol]141 mmol/V487-849IuzgucmprOur Lady of Mercy Hospital - Andersonpecific gravity Auto test strip (U) [Rel density]Ordered By: Mireya Pichardo on 79-52-5001Cagvwkxh gravity (U) [Rel density]1.0281.001-1.030[facility] Squamous epithelial cells detection in urine sediment by light microscopyOrdered By: Mireya Pichardo on 58-97-6811Wevrthyyev cells.squamous LM Ql (Urine sed)None seen [HPF]0-2FWVUMedicine Harrison Community HospitalTransferrin [Mass/volume] in Serum or PlasmaOrdered By: Juvencio Sanchez on 70-67-4747Lcoentzrvbz [Mass/Vol]206 mg/dL 203-362Providence HospitalTriglyceride [Mass/volume] in Serum or PlasmaOrdered By: Juvencio Sanchez on 33-10-1946Twwczqtffnhb [Mass/Vol]117 mg/dL 0-149Providence HospitalComment on above:TRIG ATP III CLASSIFICATIONTRIG less than 150 mg/dL NormalTRIG 150-199 mg/dL Borderline highTRIG 200-500 mg/dL High TRIG greater than 500 mg/dL Very highStandard traceable to the Center for Disease Conrtrol and Prevention (CDC) test method. Urate [Mass/volume] in Serum or PlasmaOrdered By: Mireya Pichardo on 50-41-5590Sceve [Mass/Vol]7.7 mg/dL4.4-7.6FWVUMedicine Harrison Community HospitalUrea nitrogen [Mass/volume] in Serum or PlasmaOrdered By: Juevncio Sanchez on 22-77-3713Gpbe nitrogen [Mass/Vol]22 mg/dL7-25Prov[facility] HospitalUrine bacteria detection by automated methodOrdered By: Mireya Pichardo on 86-52-9854Jxcwcyus Auto Ql (U)None seenNone SeenProvidence HospitalUrine clarity by refractometry automatedOrdered By: Mireya Pichardo on 13-21-1237Znnmpqg Refractometry automated (U)ClearClearFWVUMedicine Harrison Community HospitalUrine glucose measurement by automated test strip (mass/volume)Ordered By: Mireya Pichardo on 39-45-1231Otdsdhp Auto test strip (U) [Mass/Vol]Normal mg/dLTrumbull Regional Medical CenterUrine hemoglobin detection by automated test stripOrdered By: Mireya Pichardo on 74-25-6116Yeiklgltra Auto test strip Ql (U)NegativeNegUniversity Hospitals Geauga Medical CenterUrine leukocyte esterase detection by automated test stripOrdered By: Mireya Pichardo on 55-24-1142Haatsonpt esterase Auto test strip Ql (U)NegativeNegUniversity Hospitals Health SystemUrine protein/creatinine ratioOrdered By: Mireya Pichardo on 84-07-7085Qvlyiwh/Creatinine (U) [Ratio]233 mg/g{Cre}0-200Providence HospitalUrobilinogen Auto test strip (U) [Mass/Vol]Ordered By: Mireya Pichardo on 23-15-6076Ucqidtmaotvr (U) [Mass/Vol]Normal mg/dLTrumbull Regional Medical CenterVitamin D+Metabolites [Mass/volume] in Serum or PlasmaOrdered By: Mireya Pichardo on 60-15-4264Fxjcqnf D+Metabolites [Mass/Vol]54.7 ng/lA30-783FdhjewoomProvidence HospitalComment on above:VITAMIN D STATUS 25(OH)VITAMIN D RANGE (ng/mL) Deficient <20 Insufficient 20 to <39Zljooxkajc38 to 100Reference: Carmel MF,Daniela TINAJERO, Anastasiia CONLEY, et al. Evaluation,treatment, and prevention of vitamin D deficiency; an Endocrine Society clinical practice guideline. JCEM. 2010; 96(7):1911-30.WBC Auto (Bld) [#/Vol]Ordered By: Juvencio Sanchez on 22-74-8686STJ (Bld) [#/Vol]5.1 10*3/uL4.1-10.5FWVUMedicine [facility] Hospital pH Auto test strip (U)Ordered By: Mireya Pichardo on 99-99-1728hH (U)5.0 [pH]5.0-9.0 [facility] HospitalFecal occult blood detection by immunochemistry Ordered By: Juvencio Sanchez on 31-63-8409Ccltybxsjr.gastrointestinal Ql (Stl) Providence HospitalHISTORY PHYSICALon [id number] PHYSICAL HNO ID: [id number] Author: Yessy Lo MD Service: Pain Management Author Type: Physician Type: HANDP Filed: 11/07/2022 12:26 PM Note Text: PROCEDURAL SEDATION HISTORY AND PHYSICAL EXAM SERVICE DATE: 11/07/2022 SERVICE TIME: 11:49 AM Subjective HPI: This is a 77 year old male who presents with low back pain in the setting of neurogenic claudication due to lumbar spinal stenosis. Describes pain as sharp and aching. He denies radiation to lower extremities. Also denies fevers, chills, bowel bladder incontinence PAST ANESTHESIA HISTORY: No history of adverse event PAST MEDICAL HISTORY Diagnosis Date Hyperlipidemia Hypertension PAST SURGICAL HISTORY Procedure Laterality Date HIP RIGHT OP SURGERY 6 surgeries August 2013-Mar 2015 Prior to Admission medications as of 11/07/22 1115 Medication Sig Last Dose Taking minocycline (MINOCIN, DYNACIN) 100 mg capsule Take 1 capsule by mouth once daily. 11/06/2022 Yes docosahexaenoic acid/epa (FISH OIL ORAL) Take 1,000 mg by mouth once daily. 11/06/2022 Yes lisinopril (ZESTRIL, PRINIVIL) 5 mg tablet TK 1 T PO QD 11/06/2022 Yes acetaminophen (TYLENOL) 500 mg tablet Take 2 tablets by mouth every 8 hours as needed. 11/06/2022 Yes COQ10, UBIQUINOL, ORAL Take 200 mg by mouth once daily. 11/06/2022 Yes esomeprazole (NEXIUM) 40 mg capsule Take 40 mg by mouth once daily. 11/06/2022 Yes therapeutic multivitamin (THERA VITAMIN) tablet Take 1 tablet by mouth once daily. 11/06/2022 Yes amLODIPine (NORVASC) 5 mg tablet Take 1 tablet by mouth once daily. 11/06/2022 Yes rosuvastatin (CRESTOR) 5 mg tablet Take 1 tablet by mouth daily at bedtime. 11/06/2022 Yes tiZANidine (ZANAFLEX) 2 mg tablet Take 1 tablet by mouth twice daily as needed. gabapentin (NEURONTIN) 300 mg capsule 1 Capsule FOR 3 NIGHTS, THEN 2 CAPSULES FOR 3 NIGHTS THEN 3 CAPSULES EVERY NIGHT ferrous sulfate (IRON ORAL) Take 65 mg by mouth three times a week. ascorbic acid (VITAMIN C) 500 mg tablet Take 1 tablet by mouth twice daily with meals. ALLERGIES Allergen Reactions Nafcillin Other: See Comments affected kidneys per pt and family Objective PHYSICAL EXAM: The remainder of the physical exam is noncontributory. GENERAL: Alert, no distress, cooperative PULSES: 2+ radial AIRWAY: Airway Visualization of Uvula: Yes Mouth opening greater than 2 fingerbreadths: Yes Neck Full Range of Motion: Yes LUNGS: Lungs clear to auscultation CARDIAC: Regular rhythm,Regular rate Assessment/Plan ASA Class: ASA Class:: Patient with mild systemic disease Active Problems: * No active hospital problems. * Resolved Problems: * No resolved hospital problems. * Medication and Non-Pharmacologic VTE Prophylaxis/Anticoagulants VTE Prophylaxis: VTE prophylaxis appropriate Provisional Diagnosis/Treatment Plan: Caudal epidural steroid injection for spinal stenosis, lumbar region with neurogenic claudication SEDATION GOAL: Moderate SIGNATURE: Sheron Carter PA-C PATIENT NAME: Indiana Hines DATE: November 07, 2022 TIME: 11:36 AM The History and Physical (completed in the past 30 days) has been reviewed and the patient has been examined. The contents accurately reflect the patient's condition with the following additions or revisions since the HANDP was completed. Today?s examination indicates no changes. This HANDP can be found in the attached. I have personally reviewed the risks, benefits, alternatives, expectations and personnel with the patient and have answered their questions. We are ready to proceed with the procedure as planned. SIGNATURE: Dr. Lo PATIENT NAME: Indiana Hines DATE: November 07, 2022 12:25 PM [facility] HospitalOPERATIVE NO on [id number] NOHNO ID: [id number] Author: Yessy Lo MD Service: Pain Management Author Type: Physician Type: Operative Report Filed: 11/07/2022 12:40 PM Note Text: OPERATIVE/PROCEDURE REPORT LOG ID: [id number] SURGERY/PROCEDURE DATE: 11/07/2022 INCISION/PROCEDURE START TIME: 12:34 PM INCISION CLOSE/PROCEDURE END TIME: 12:37 PM PRE-OP/PRE-PROCEDURE DIAGNOSIS: Spinal stenosis, lumbar region with neurogenic claudication [M48.062] POST-OP/POST-PROCEDURE DIAGNOSIS: Same as Preop SURGERY/PROCEDURE(S): Procedure(s) (LRB): SACRAL(CAUDAL) EPIDURAL BLOCK W/INJECTION NON NEUROLYTIC W/IMAGE GUIDANCE (N/A) SURGEON(S)/PROCEDURALIST(S) AND PHYSICIAN SCIENTIST(S): Surgeon(s) and Role: * Yessy Lo MD - Primary No Additional Fire Sprinkler Installer(s): None, I performed the entire procedure. ANESTHESIA: : Local SEDATION: Moderate Sedation; midazolam 2 mg AND fentanyl 50 mcg, ASA II, normal airway, chest excursion and heart rate. Airway reassessed immediately prior to medication administration, and IV sedation was administered incrementally to allow the patient to remain comfortable and conversant throughout the procedure. SEDATION START TIME: 12:31 PM SEDATION END TIME: SUBJECTIVE: Indiana Hines is a 77 year old male presents [facility] with complaints of lower back pain. IINDICATIONS: neurogenic claudication. SURGERY/PROCEDURE DETAILS: IV was started prior to the procedure. The patient was transported to the fluoroscopy suite and was placed in a prone position on the fluoroscopy table with a pillow under the abdomen to reduce the lumbar lordosis.The patient was monitored using pulse oximetry, intermittent blood pressure reading, and 3-lead EKG. Using sterile technique, the skin over the lumbosacral spine was prepped with povidone-iodine and draped. The sacrum, sacral cornua and coccyx were identified by palpation and under fluoroscopic imaging in an AP and lateral view. The skin and the subcutaneous tissues at the entry site were anesthetized with 2 ml of lidocaine 0.5%. A 17 gauge 3.5 inch Tuohywas advanced into the sacral hiatus under intermittent AP and lateral fluoroscopic guidance until the needle passed through the sacrococcygeal ligament and then advanced another 1cm to the caudal epidural space. The final needle position was confirmed using an AP and lateral fluoroscopic imaging. After negative aspiration of blood or CSF, a radio opaque catheter was inserted through the needle and advanced in the epidural space toward midine L5 level. 1 ml of iohexal 300 was injected through the catheter. Midline, bilateral epidural spread of contrast was confirmed. Medication and ice. From the lower border of the L2 to the S1 level midline and bilateral Eight ml of 0.5% lidocaine with 40 mg triamcinolone was injected and the needle AND catheter were removed. The injection site was cleaned and dried and a sterile dressing was applied. The patient was taken to the post-block recovery area for further observation. FINDINGS: Technically adequate procedure COMPLICATIONS: None ESTIMATED BLOOD LOSS: minimal SPECIMENS: None IMPLANTABLE DEVICES: None DRAINS: None ASSESSMENT: Spinal stenosis, lumbar region with neurogenic claudication [M48.062] PLAN: The effect of the procedure will be evaluated at the next visit. Follow-up Appointment: 3-4 weeks for an office visit SIGNATURE: Yessy Lo MD PATIENT NAME: Indiana Reynoso Donny DATE: November 07, 2022 TIME: 12:38 [facility] [id number] ([facility] [place] DONNYINDIANA PELAEZ ([id number]) 1945 [facility] Date Time Provider Department 10/05/22 YESSY LO [facility] [place] During your visit today, we recorded the following information about you: Darshana Crump HUC 10/05/2022 10:57 AM Signed calling. Procedure for tomorrow 10/06/22 needs rescheduled. Patient had a different procedure today involving steroids and was told he needed to wait 3 weeks. Please call Allergies As of Date: 10/05/2022 Noted Allergy Reaction NAFCILLIN 06/16/2015 14 - Other: See Comments Comments: affected kidneys per pt and family Date Reviewed: 09/14/2022 Reviewed by: Symone Woody APRN.COOKEE - Fully Assessed Reason for Visit: Appointment Rescheduled [1024] Prescriptions as of 10/06/2022 - minocycline (MINOCIN, DYNACIN) 100 mg capsule Take 1 capsule by mouth once daily. - tiZANidine (ZANAFLEX) 2 mg tablet Take 1 tablet by mouth twice daily as needed. - gabapentin (NEURONTIN) 300 mg capsule 1 Capsule FOR 3 NIGHTS, THEN 2 CAPSULES FOR 3 NIGHTS THEN 3 CAPSULES EVERY NIGHT - ferrous sulfate (IRON ORAL) Take 65 mg by mouth three times a week. - docosahexaenoic acid/epa (FISH OIL ORAL) Take 1,000 mg by mouth once daily. - lisinopril (ZESTRIL, PRINIVIL) 5 mg tablet TK 1 T PO QD - acetaminophen (TYLENOL) 500 mg tablet Take 2 tablets by mouth every 8 hours as needed. - COQ10, UBIQUINOL, ORAL Take 200 mg by mouth once daily. - esomeprazole (NEXIUM) 40 mg capsule Take 40 mg by mouth once daily. - therapeutic multivitamin (THERA VITAMIN) tablet Take 1 tablet by mouth once daily. - ascorbic acid (VITAMIN C) 500 mg tablet Take 1 tablet by mouth twice daily with meals. - amLODIPine (NORVASC) 5 mg tablet Take 1 tablet by mouth once daily. - rosuvastatin (CRESTOR) 5 mg tablet Take 1 tablet by mouth daily at bedtime. 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, Z96.64*03/16/2015 Status post right hip replacement [Z96.641] 04/21/2015 Mechanical complication of hip prosthesis (HCC)*04/21/2015 Hip joint replacement status [Z96.649] 06/16/2015 Foot drop, right [M21.371] 09/28/2015 Lumbar spondylosis [M47.816] 06/19/2019 Encounter Status:Closed by DARSHANA CRUMP on 10/06/22[facility]XR [facility] 3V*on 54-20-1751BB foot RT min 3V*[facility] [employer] Other XR foot RT min 3V*[facility] [employer] Other XR foot RT min 3V*[address] [place] [address] [employer] Other XR foot RT min 3V*HERLINDA Marsh [address]Nrvnf [employer] Other XR foot RT min 3V*XRay ReportBay [place] [employer] Other XR foot RT min 3V*SignedBay [place] [employer] Other XR foot RT min 3V*Patient: Indiana Hines MR#: [id number] [employer] Other XR foot RT min 3V*19[place] [employer] Other XR foot RT min 3V*: 1945 Acct:[id number] [employer] Other XR foot RT min 3V*Age/Sex: 77 / M ADM Date: 09/16/22 [facility] [employer] Other XR foot RT min 3V*Loc: XDUCLY Room: Type: [facility] [employer] Other XR foot RT min 3V*Attending Dr: Addis Bell [facility] [employer] Other XR foot RT min 3V*Copies to: Addis Bell, [facility] [employer] Other XR foot RT min 3V*Ordering Provider: Addis Bell, [facility] [employer] Other XR foot RT min 3V*Date of Service: 09/16/22[place] [employer] Other XR foot RT min 3V* XR/XR foot RT min 3V*: Right foot painBay [place] [employer] Other XR foot RT min 3V*3 views right foot plain [facility] [employer] Other XR foot RT min 3V*COMPARISON:[facility] [employer] Other XR foot RT min 3V*HISTORY: Right foot injury. First and second metatarsal [facility] [employer] Other XR foot RT min 3V*ACUTE FINDINGS: [facility] [employer] Other XR foot RT min 3V*DEGENERATIVE CHANGE: Mild degeneration.[facility] [employer] Other XR foot RT min 3V*SOFT TISSUE FINDINGS: Dorsal soft tissue swellingBay [place] [employer] Other XR foot RT min 3V*JOINT EFFUSION: [facility] [employer] Other XR foot RT min 3V*POSTOP CHANGES: [facility] [employer] Other XR foot RT min 3V*BONE MINERALIZATION: [facility] [employer] Other XR foot RT min 3V* XR/XR foot RT min 3V*[facility] [employer] Other XR foot RT min 3V*IMPRESSION: No acute findings.[facility] [employer] Other XR foot RT min 3V*Impression dictated by: Michael Ferrer M.D.09/16/2022 5:20 [facility] [employer] Other XR foot RT min 3V*Dictation Location: [address] [employer] Other XR foot RT min 3V*Transcribed By: JOHN 09/16/[address] [place] [address] [employer] Other XR foot RT min 3V*Dictated By: Michael Ferrer DO 09/16/[address] [place] [address] [employer] Other XR foot RT min 3V*Signed By:[employer] Other XR foot RT min 3V*09/16/[address] [place] [address] [employer] Other CNOVon [id number] Visit (PAINSF) INDIANA HINES ([id number]) 1945 M [place]* Date Time Provider Department 09/14/22 11:30 AM SYMONE WOODY During your visit today, we recorded the following information about you: Blood pressure Weight 149/87 115.7 kg Symone Woody APRN.COOKEE 09/14/2022 12:38 PM Signed Follow up Visit Patient Name: Indiana Hines MR #: [id number] Age: [age] year old Date: September 14, 2022 Referred by: Dr. Handley Patient was last seen on 11/20/2019 for the diagnosis of chronic low back in setting of advanced spondylosis and spinal stenosis and neck pain. The following plan of care was recommended Repeat Bilateral Lumbar L4-L5, L5-S1 median branch block If back pain persist consider Bilateral TFESI L5-S1 RTC in 12 weeks Lumbar bilateral 11/29/2019 Was there relief from this treatment? No. How long did the patient get relief from this treatment? none. What percentage of pain did the patient feel was relieved with this treatment? none Treatment agreement on file: No Last toxicology screen done:N/A This Episode: Pattern: Constant. Character: Sharp and Aching. Severity: VAS Pain: 0/10 Current Location: low back pain Radiation: non radiating Associated Signs/Symptoms: None. Sensory/Motor Changes: None. Changes in Bowel/Bladder Control?: No. Number of hours of sleep per night: 6 Is sleep interrupted by pain? No. Patient feels safe at home: Yes Allergies: ALLERGIES Allergen Reactions Nafcillin Other: See Comments affected kidneys per pt and family Current Outpatient Medications: minocycline (MINOCIN, DYNACIN) 100 mg capsule Take 1 capsule by mouth once daily. tiZANidine (ZANAFLEX) 2 mg tablet Take 1 tablet by mouth twice daily as needed. gabapentin (NEURONTIN) 300 mg capsule 1 Capsule FOR 3 NIGHTS, THEN 2 CAPSULES FOR 3 NIGHTS THEN 3 CAPSULES EVERY NIGHT ferrous sulfate (IRON ORAL) Take 65 mg by mouth three times a week. docosahexaenoic acid/epa (FISH OIL ORAL) Take 1,000 mg by mouth once daily. lisinopril (ZESTRIL, PRINIVIL) 5 mg tablet TK 1 T PO QD acetaminophen (TYLENOL) 500 mg tablet Take 2 tablets by mouth every 8 hours as needed. COQ10, UBIQUINOL, ORAL Take 200 mg by mouth once daily. esomeprazole (NEXIUM) 40 mg capsule Take 40 mg by mouth once daily. therapeutic multivitamin (THERA VITAMIN) tablet Take 1 tablet by mouth once daily. ascorbic acid (VITAMIN C) 500 mg tablet Take 1 tablet by mouth twice daily with meals. amLODIPine (NORVASC) 5 mg tablet Take 1 tablet by mouth once daily. rosuvastatin (CRESTOR) 5 mg tablet Take 1 tablet by mouth daily at bedtime. Digital Account Supervisor: Erinn Overton MA Imagin06/19/19 MRI Lumbar spine RESULT: Counting reference: Lumbosacral junction. For the purposes of this report, L4-5 is considered the level of the iliac crest and assume there are 5 lumbar-type vertebrae. Anatomic variant: None. Alignment: Mild scoliotic curvature convex right, apex L3-L4. Sagittal alignment is grossly normal. Bone marrow signal/fracture: Old Schmorl's nodes lower L2 and upper L3. No other pathologic marrow infiltration. Conus: Distal cord terminates normally at L1-L2. Paraspinal soft tissues: Obesity. No paraspinal masses. Lower thoracic spine: Canal and foramina are normally patent at T10-T11 and T11-T12. T12-L1: Canal and foramina are patent. L1-L2: Mild loss of disc height, partial loss of T2 hyperintensity in the disc, and facet degenerative change. Central thecal sac is patent. Foramina are patent. L2-L3: Disc bulging, facet degenerative change. Moderate canal narrowing, particularly left lateral recess. Mild right lateral recess narrowing. Loss of disc height and facet degenerative change contributes to severe bilateral foraminal narrowing. L3-L4: Disc bulging and facet degenerative change. Moderate-severe narrowing of spinal canal. Severe left and moderate right lateral recess narrowing likely contributing to radiculopathy. Loss of disc height and bony degenerative change contributes to moderate bilateral foraminal narrowing. L4-L5: Disc bulging and facet degenerative change. Moderate to severe spinal stenosis including the lateral recesses. Neural foramina remain patent. L5-S1: Disc bulging and facet degenerative change. Shallow central protrusion. No direct compression of either descending S1 nerve root sleeve. Narrowing of the central thecal sac primarily related to epidural lipomatosis. Right neural foramen is patent. Moderate to severe left foraminal narrowing. Sacrum and iliac wings: No marrow edema. Procedures: None recent OARRS: PDMP website checked and validated. All prescriptions have been APPROPRIATELY filled. No suspicious activity was identified. 09/14/2022 by Symone Woody APRN.COOKEE Current Medications: Tylenol arthritis OTC Anticoagulation: none DM: no Physical Therapy: 2019 GFR: >60 L (more content not included)...NormalKettering Health MiamisburgOVon [id number] Visit (ORAVON) INDIANA HINES ([id number]) 1945 M [place]* Date Time Provider Department 08/04/22 11:00 AM PAXTON FOSTER During your visit today, we recorded the following information about you: Weight 115.7 kg Paxton Foster MD 08/04/2022 1:27 PM Signed Ortho Hip Follow Up Note Narrative Referring Provider: No referring provider defined for this encounter. PCP: Juvencio Sanchez, IMPRESSION/PLAN: Impressions indicate: 76 year old s/p Revision Right Total Hip Replacement completed on 06/16/2015. Recent Surgeries this specialty 06/16/2015 (7yr) ARTHROPLASTY TOTAL HIP CONVERSION AFTER PREVIOUS HIP SURG (Right) Paxton Foster MD; Jam Barney (Fel) - Posted 03/17/2015 (7yr) REMOVAL HIP PROSTHESIS COMPLICATED INCL. TOTAL HIP PROSTHESIS (Right) Paxton Foster MD; Nicho Dalton (Fel) - Posted PAIN EVALUATION No data found in the last 1 encounters. IMPRESSION: Right hip is doing well. Had left TKA in 1999 and Right TKA 03/17/[address] Abdi in [place], [place]. Started to develop some discomfort in the left knee about 1 year ago. PLAN: Possible early loosening of left TKA. Will continue to monitor. Follow up in 1 year with new x-rays unless change in symptoms. Patient Reassurance: Patient reassured and supported. All questions answered. 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 STATUS POST: BMI: Body mass index is 33.64 kg/m?. Post operative recovery was complicated by uneventful/none. Readmission(s) since surgery (90 days post)? No ED Visits AND Hospitalizations - Last 180 days None Patient rates their condition as improving. Does the patient still experience pain? see MIDAS Form. Post Op discharge patient location: in home. Functional Assessment is as follows: completed course of therapy. Functional difficulties: None. Pain Medication: None Physical Therapy Data 06/17/2015 06/19/2019 06/25/2019 Therapist that will oversee plan of care Jodie Atkinson Emily - Prognosis - Fair - Prognosis fair - clinical presentation;chronic nature of impairments;advanced age - Frequency - 1x/week - Duration - 4 weeks - Total number of visits - 4 - Planned treatment interventions - Therapeutic exercise;Neuromuscular re-education;Self-long term management;Patient/Family/Caregiver Education - Plan for next visit - hip ER stretch; flexion bias; PPT with march, lateral glide R->L discuss standing weight shift - loading left too much EXAM: POST OP HIP RIGHT POST-OPERATIVE HIP SKIN: Appropriate postop appearance and Incision intact. Range of Motion: Pain Free Neurovascular Status: Sensation Intact, Moves foot and ankle up AND down, and 2+ dorsalis pedis Gait: Normal, the patient did not have trouble getting onto the exam table. HIP EXAM: Right: ROM: Extension: Normal Flexion: 110 degrees Internal Rotation: 30 degrees External Rotation: 30 degrees Abduction: 40 degrees Adduction: 30 degrees Strength: Abduction 5/5 and Flexion 5/5 Palpation: No tenderness Log roll: non-painful. Limb length: clinically equal Straight leg raise: Negative Neurovascular Status: Sensation Intact and Moves foot and ankle up AND down Left Knee: Alignment: Neutral Incision well healed Range of motion is 0 degrees in extension and 120 degrees of flexion. Extension La degrees Pain with ROM: No Effusion: None Tender to the palpation of None Stability: Anterior/Posterior stable and Varus/Valgus stable Hip Exam: flexion to 100+ degrees, full extension, internal/external rotation adequate and no pain with log roll Neurovascular Status: Sensation Intact and Moves foot and ankle up AND down Right knee: Alignment: Neutral Incision well healed Range of motion is 0 degrees in extension and 120 degrees of flexion. Extension La degrees Pain with ROM: No Effusion: None Pain with patellar compression: No Stability: Anterior/Posterior stable and Varus/Valgus stable Hip Exam: flexion to 100+ degrees, full extension, internal/external rotation adequate and no pain with log roll Neurovascular Status: Sensation Intact and Moves foot and ankle up AND down IMAGING: X-ray Hips: Post op Implants are well fixed. and There is no evidence of loosening. The History, Exam, and Plan as documented by the Orthopaedic surgery resident/fellow/physician benefits assistant was reviewed and discussed in detail. We have discussed the case (more content not included)...NormalMartins Ferry HospitalXR HIP 3V PELV+ AP/LAT RTon [id number] HIP 3V PELV+ AP/LAT RT* * *Final Report* * * DATE OF EXAM: Aug 04 2022 11:12AM AFR 5352 - XR HIP 3V PELV+ AP/LAT RT / PROCEDURE REASON: Pain * * * * Physician Interpretation * * * * HISTORY: Pain TECHNIQUE: Frontal radiograph of the pelvis and 2 views right hip COMPARISON: 04/11/19 RESULT: Again seen is postsurgical change of total right hip arthroplasty with satisfactory alignment. No acute fracture or evidence of hardware failure. Similar-appearing heterotopic ossification about the hip. Mild left hip degenerative change. There is degenerative change of the visualized lower lumbar spine. IMPRESSION: RIGHT TOTAL HIP ARTHROPLASTY, UNCHANGED Economics Instructor: VICK Transcribe Date/Time: Aug 04 2022 12:46P Dictated by : ADRIANA ONEAL MD This examination was interpreted and the report reviewed and electronically signed by: ADRIANA ONEAL MD on Aug 04 2022 12:47PM EST [id number] Ferry HospitalXR KNEE 3V AP/LAT/MERCHANT LTon [id number] KNEE 3V AP/LAT/MERCHANT LT* * *Final Report* * * DATE OF EXAM: Aug 04 2022 11:12AM AFR 5208 - XR KNEE 3V AP/LAT/MERCHANT LT / PROCEDURE REASON: Pain * * * * Physician Interpretation * * * * HISTORY: Pain TECHNIQUE: 3 views left knee COMPARISON: None. RESULT: There is postsurgical change of total knee arthroplasty with satisfactory alignment. No acute fracture or evidence of hardware failure. There is some heterotopic ossification above the patella. Vascular calcifications are present. Postsurgical change of total right knee arthroplasty. IMPRESSION: POSTSURGICAL CHANGE OF TOTAL KNEE ARTHROPLASTY WITH INTACT HARDWARE Economics Instructor: [facility] Transcribe Date/Time: Aug 04 2022 12:44P Dictated by : ADRIANA ONEAL MD This examination was interpreted and the report reviewed and electronically signed by: ADRIANA ONEAL MD on Aug 04 2022 12:46PM EST [id number] Ferry HospitalBasophils Auto (Bld) [#/Vol]Ordered By: Juvencio Sanchez on 92-63-6185Sbbinjnyb (Bld) [#/Vol]0.0 10*3/uL 0.0-0.2FWVUMedicine Harrison Community HospitalBasophils/100 WBC Auto (Bld)Ordered By: Juvencio Sanchez on 88-84-5008Fyhdcphvz/100 WBC (Bld)0.8 %.[facility] Medical CenterEosinophils Auto (Bld) [#/Vol]Ordered By: Juvencio Sanchez on 00-12-5615Aeluvuhzuiy (Bld) [#/Vol]0.2 10*3/uL0.0-0.45[facility] HospitalEosinophils/100 WBC Auto (Bld)Ordered By: Juvencio Sanchez on 06-10-2022 Eosinophils/100 WBC (Bld)3.7 %.[facility] HospitalErythrocyte distribution width Auto (RBC) [Ratio]Ordered By: Juvencio Sanchez on 06-10-2022 Erythrocyte distribution width (RBC) [Ratio]14.9 %12.0-14.8[facility] HospitalHematocrit Auto (Bld) [Volume fraction]Ordered By: Juvencio Sanchez on 99-66-5527Gbpjfhgvxk (Bld) [Volume fraction]41.0 %38.8-50.0[facility] HospitalHemoglobin [Mass/volume] in BloodOrdered By: Juvencio Sanchez on 17-51-0501Umuevadzmb (Bld) [Mass/Vol]13.3 g/dL13.0-17.0[facility] HospitalLeukocytes [#/volume] corrected for nucleated erythrocytes in Blood by Automated counOrdered By: Juvencio Sanchez on 95-10-1796CDR corrected for nucl RBC Auto (Bld) [#/Vol]5.3 10*3/uL4.1-10.5FWVUMedicine Harrison Community Hospital Lymphocytes Auto (Bld) [#/Vol]Ordered By: Juvencio Sanchez on 78-31-7452Qijukancvpn (Bld) [#/Vol]1.2 10*3/uL1.00-4.8[facility] HospitalLymphocytes/100 WBC Auto (Bld)Ordered By: Juvencio Sanchez on 54-76-9973Lkhvqpgkcwj/100 WBC (Bld) 22.4 %.[facility] Auto (RBC) [Entitic mass]Ordered By: Juvencio Sanchez on 65-85-4776BBR (RBC) [Entitic mass]29.4 pg27.5-35.2FSycamore Medical Center Auto (RBC) [Mass/Vol]Ordered By: Juvencio Sanchez on 96-46-7195BUBL (RBC) [Mass/Vol]32.4 g/dL32.5-35.6FWVUMedicine Harrison Community HospitalMCV Auto (RBC) [Entitic vol]Ordered By: Juvencio Sanchez on 19-48-7800IEM (RBC) [Entitic vol]90.8 fL83.5-101Prov[facility] HospitalMonocytes Auto (Bld) [#/Vol]Ordered By: Juvencio Sanchez on 17-85-1622Tzajvxqwr (Bld) [#/Vol] 0.8 10*3/uL0.0-0.8[facility] HospitalMonocytes/100 WBC Auto (Bld) Ordered By: Juvencio Sanchez on 11-84-0006Znfgeefpx/100 WBC (Bld)15.1 %.[facility] HospitalNeutrophils Auto (Bld) [#/Vol]Ordered By: Juvencio Sanchez on 31-54-1436Zcdvfdewbrw (Bld) [#/Vol]3.1 10*3/uL1.8-7.7FWVUMedicine Harrison Community HospitalNeutrophils/100 WBC Auto (Bld)Ordered By: Juvencio Sanchez on 06-10-2022 Neutrophils/100 WBC (Bld)58.0 %.[facility] HospitalNucleated erythrocytes [Presence] in Blood by Automated countOrdered By: Juvencio Sanchez on 35-34-6325Kuynijxca RBC Auto Ql (Bld)0.1 /100{WBC}0-0.5FWVUMedicine Harrison Community HospitalPlatelet adequacy [Presence] in Blood by Light microscopyOrdered By: Juvencio Sanchez on 28-59-8492Gfdxsqsvx LM Ql (Bld)NormalTrumbull Regional Medical CenterPlatelet mean volume Auto (Bld) [Entitic vol]Ordered By: Juvencio Sanchez on 67-96-4271Jfdbzmlj mean volume (Bld) [Entitic vol]9.7 fL6.6-10.1 [facility] HospitalPlatelet morphology finding [Identifier] in BloodOrdered By: Juvencio Sanchez on 63-43-7172Wrumnxkh morphology finding Nom (Bld) NormalNormWood County HospitalPlatelets Auto (Bld) [#/Vol]Ordered By: Juvencio Sanchez on 91-01-2568Htjffeska (Bld) [#/Vol]184 10*3/uA565-426 [facility] HospitalRBC Auto (Bld) [#/Vol]Ordered By: Juvencio Sanchez on 33-45-8622OXL (Bld) [#/Vol]4.52 10*6/uL3.90-5.60[facility] HospitalRBC morphologyOrdered By: Juvencio Sanchez on 61-17-7528VXS morphology finding Nom (Bld)NormalNormalProvidence HospitalWBC Auto (Bld) [#/Vol] Ordered By: Juvencio Sanchez on 00-45-2752TWM (Bld) [#/Vol]5.3 10*3/uL4.1-10.5 [facility] HospitalAlanine aminotransferase [Enzymatic activity/volume] in Serum or PlasmaOrdered By: Juvencio Sanchez on 55-20-5252NKN [Catalytic activity/Vol]14 U/L7-52Prov[facility] HospitalAlbumin [Mass/volume] in Serum or Plasma by Bromocresol green (BCG) dye binding metho Ordered By: Juvencio Sanchez on 02-84-7966Cifhygb BCG dye [Mass/Vol]4.0 g/dL3.5-5.7 [facility] HospitalAlkaline phosphatase [Enzymatic activity/volume] in Serum or PlasmaOrdered By: Juvencio Sanchez on 16-22-7805PNX [Catalytic activity/Vol]105 U/N21-616YkvmghrdpProvidence HospitalAspartate aminotransferase [Enzymatic activity/volume] in Serum or PlasmaOrdered By: Juvencio Sanchez on 32-99-7038TFT [Catalytic activity/Vol]22 U/U13-77RgomkvihaProvidence HospitalBilirubin.total [Mass/volume] in Serum or PlasmaOrdered By: Juvencio Sanchez on 80-44-5160Bwcsqtrzq [Mass/Vol]0.6 mg/dL0.3-1.0Prov[facility] HospitalCalcium [Mass/volume] in Serum or PlasmaOrdered By: Juvencio Sanchez on 35-88-7789Agtfsjn [Mass/Vol]8.6 mg/dL8.6-10.3FWVUMedicine Harrison Community HospitalCalcium [Mass/Vol]8.9 mg/dL8.6-10.3FWVUMedicine Harrison Community HospitalCarbon dioxide, total [Moles/volume] in Serum or PlasmaOrdered By: Juvencio Sanchez on 81-66-1589IP7 [Moles/Vol]23.7 mmol/L21.0-31.0[facility] CO2 [Moles/Vol]21.7 mmol/L21.0-31.0[facility] HospitalChloride [Moles/volume] in Serum or PlasmaOrdered By: Juvencio Sanchez on 70-60-0262Zmmzeeiu [Moles/Vol]106 mmol/M38-050DhnqezdtgProvidence HospitalCholesterol [Mass/volume] in Serum or PlasmaOrdered By: Juvencio Sanchez on 06-08-2022 Cholesterol [Mass/Vol]138 mg/yT306-248IkfalqkcdProvidence HospitalComment on above:Chol less than 200 mg/dl low riskChol 201-239 mg/dl borderline riskChol 240 mg/dl and greater high riskCholesterol in LDL Calc [Mass/Vol]Ordered By: Juvencio Sanchez on 55-03-6832Gicdbuxaglt in LDL [Mass/Vol]76 mg/dL0-100Providence HospitalComment on above:LDL ATP III CLASSIFICATIONLDL less than 100 mg/dL OptimalLDL 100-129 mg/dL Near or above uzeixpwGMW058-684 mg/dL Borderline highLDL 160-189 mg/dL HighLDL greater than 189 mg/dL Very high Cholesterol in VLDL Calc [Mass/Vol]Ordered By: Juvencio Sanchez on 06-08-2022 Cholesterol in VLDL [Mass/Vol]23 mg/dLProvidence Hospital Creatinine [Mass/volume] in Serum or PlasmaOrdered By: Juvencio Sanchez on 09-14-5946Pmmutwksye [Mass/Vol]1.15 mg/dL0.70-1.30Providence HospitalCreatinine [Mass/Vol]1.19 mg/dL0.70-1.30[facility] Erythrocyte distribution width Auto (RBC) [Ratio]Ordered By: Juvencio Sanchez on 28-32-7446Eyflbppkbxi distribution width (RBC) [Ratio]14.8 %12.0-14.8Prov[facility] HospitalFerritin [Mass/volume] in Serum or PlasmaOrdered By: Juvencio Sanchez on 00-68-1588Dvzxxeqn [Mass/Vol]240.1 ng/mL23.9-336.2FWVUMedicine Harrison Community HospitalGlobulin Calc (S) [Mass/Vol]Ordered By: Juvencio Sanchez on 67-51-9087Xaasdpji (S) [Mass/Vol]2.4 g/dLProvidence Hospital Glucose [Mass/volume] in Serum or PlasmaOrdered By: Juvencio Sanchez on 06-08-2022 Glucose [Mass/Vol]92 mg/wK28-417IzolyzwupProvidence HospitalComment on above:ADA recommended reference rangeRandom Glucose Reference Range is dependent on time and content of last meal. Glucose of more than 200 mg/dL in a nonstressed, ambulatory subject supports the diagnosisof Diabetes Mellitus. Glucose [Mass/Vol]93 mg/sZ02-935CtmexadqoProvidence HospitalComment on above:ADA recommended reference rangeRandom Glucose Reference Range is dependent on time and content of last meal. Glucose of more than 200 mg/dL in a nonstressed, ambulatory subject supports the diagnosisof Diabetes Mellitus. Glucose mean value [Mass/volume] in Blood Estimated from glycated hemoglobin Ordered By: Juvencio Sanchez on 40-61-6141Ecvzmrp glucose Estimated from glycated hemoglobin (Bld) [Mass/Vol]126 mg/dLProvidence HospitalHematocrit Auto (Bld) [Volume fraction]Ordered By: Juvencio Sanchez on 17-66-2195Ebfjffrfdd (Bld) [Volume fraction]39.6 %38.8-50.0[facility] Hemoglobin A1c percentageOrdered By: Juvencio Sanchez on 45-75-6643VnB7d (Bld) [Mass fraction]6.0 %4.3-5.6FWVUMedicine Harrison Community HospitalComment on above: Increased risk for diabetes: 5.7 - 6.4diabetes: >6.4glycemic control for adults with diabetes: <7.0Hemoglobin [Mass/volume] in BloodOrdered By: Juvencio Sanchez on 29-08-9546Xobearrszj (Bld) [Mass/Vol]12.8 g/dL13.0-17.0Providence HospitalIron [Mass/volume] in Serum or PlasmaOrdered By: Juvencio Sanchez on 74-90-9394Apql [Mass/Vol]85 ug/gW24-721VgjiaxgnxProvidence HospitalIron binding capacity [Mass/volume] in Serum or PlasmaOrdered By: Juvencio Sanchez on 87-27-2935Etnb binding capacity [Mass/Vol]287 ug/oP769-639ZkgkmsgltProvidence HospitalIron saturation [Mass Fraction] in Serum or PlasmaOrdered By: Juvencio Sanchez on 74-33-0147Ecwj saturation [Mass fraction]29.6 %20-50Providence HospitalLeukocytes [#/volume] corrected for nucleated erythrocytes in Blood by Automated counOrdered By: Juvencio Sanchez on 93-62-7232ALH corrected for nucl RBC Auto (Bld) [#/Vol]5.2 10*3/uL4.1-10.5FWayne HealthCare Main CampusH Auto (RBC) [Entitic mass]Ordered By: Juvencio Sanchez on 65-22-7606JQF (RBC) [Entitic mass]29.3 pg27.5-35.2FWVUMedicine Harrison Community HospitalMCHC Auto (RBC) [Mass/Vol]Ordered By: Juvencio Sanchez on 62-29-6062JRZI (RBC) [Mass/Vol]32.2 g/dL32.5-35.6FWayne HealthCare Main CampusV Auto (RBC) [Entitic vol]Ordered By: Juvencio Sanchez on 79-61-1013WBA (RBC) [Entitic vol]91.0 fL83.5-101Providence HospitalMagnesium [Mass/volume] in Serum or PlasmaOrdered By: Juvencio Sanchez on 78-83-7340Ezaspxyer [Mass/Vol]1.6 mg/dL1.9-2.7 Providence HospitalNo Panel InformationOrdered By: Juvencio Sanchez on 44-51-8474Gzwtebjdx GFR (CKD-EPI)> 60.0 mL/MinProvidence Hospital Pharmacy Creatinine Clearance (ChemN/AFWVUMedicine Harrison Community Hospital Parathyrin.intact [Mass/volume] in Serum or PlasmaOrdered By: Juvencio Sanchez on 97-28-2962Valkuoazrd.intact [Mass/Vol]83.5 pg/lZ48-39CweuxlcrjProvidence HospitalPhosphate [Mass/volume] in Serum or PlasmaOrdered By: Juvencio Sanchez on 62-07-4747Xckduzoyz [Mass/Vol]3.4 mg/dL3.7-7.2FWVUMedicine Harrison Community Hospital Platelet mean volume Auto (Bld) [Entitic vol]Ordered By: Juvencio Sanchez on 64-91-3460Nlxvfhto mean volume (Bld) [Entitic vol]9.7 fL6.6-10.1FWVUMedicine Harrison Community HospitalPlatelets Auto (Bld) [#/Vol]Ordered By: Juvencio Sanchez on 33-20-6702Tabtqxwkw (Bld) [#/Vol]173 10*3/sF100-892AcmqqhanlProvidence HospitalPotassium [Moles/volume] in Serum or PlasmaOrdered By: Juvencio Sanchez on 58-66-4717Ssgjqcosa [Moles/Vol]4.6 mmol/L3.5-5.1FWVUMedicine Harrison Community HospitalPotassium [Moles/Vol]4.7 mmol/L3.5-5.1FWVUMedicine [facility] Hospital Protein [Mass/volume] in Serum or PlasmaOrdered By: Juvencio Sanchez on 06-08-2022 Protein [Mass/Vol]6.4 g/dL6.4-8.9Providence HospitalRBC Auto (Bld) [#/Vol]Ordered By: Juvencio Sanchez on 05-65-7753TNV (Bld) [#/Vol]4.36 10*6/uL 3.90-5.60[facility] - Andersonerum or plasma albumin/globulin mass ratioOrdered By: Juvencio Sanchez on 63-48-2595Ubytznn/Globulin [Mass ratio]1.7 {ratio}[facility] - Andersonerum or plasma anion gap determination Ordered By: Juvencio Sanchez on 01-02-3568Mioiq gap [Moles/Vol]12.9 mmol/L6.0-15.0 Providence HospitalAnion gap [Moles/Vol]15.0 mmol/L6.0-15.0 [facility] - Andersonerum or plasma high density lipoprotein (HDL) cholesterol measurementOrdered By: Juvencio Sanchez on 08-49-3022Xjfulfldyxg in HDL [Mass/Vol]39 mg/sL47-46JwqgmmvyyProvidence HospitalComment on above:HDL CHOL ATP-III CLASSIFICATION Cardiovascular RiskHDL > or equal to 60 mg/dL LOWHDL < 40 mg/dL HIGHSerum or plasma total cholesterol/high density lipoprotein (HDL) cholesterol mass ratOrdered By: Juvencio Sanchez on 06-08-2022 Cholesterol.total/Cholesterol in HDL [Mass ratio]3.5 {ratio}<5.0[facility] - Andersonodium [Moles/volume] in Serum or PlasmaOrdered By: Juvencio Sanchez on 49-16-6862Zudozg [Moles/Vol]138 mmol/Q532-151CdyzdsmypProvidence HospitalTransferrin [Mass/volume] in Serum or PlasmaOrdered By: Juvencio Sanchez on 75-04-0533Vdydptkaglm [Mass/Vol]205 mg/hE494-856BnvslkfbxProvidence HospitalTriglyceride [Mass/volume] in Serum or PlasmaOrdered By: Juvencio Sanchez on 53-96-4708Ywkcxfyjxxth [Mass/Vol]116 mg/dL0-149Providence HospitalComment on above:TRIG ATP III CLASSIFICATIONTRIG less than 150 mg/dL NormalTRIG 150-199 mg/dL Borderline highTRIG 200-500 mg/dL High TRIG greater than 500 mg/dL Very highStandard traceable to the Center for Disease Co nrtrol and Prevention (CDC) test method.Urate [Mass/volume] in Serum or Plasma Ordered By: Juvencio Sanchez on 24-16-3617Kxlcq [Mass/Vol]7.1 mg/dL2.4-7.6FWVUMedicine Harrison Community HospitalUrea nitrogen [Mass/volume] in Serum or PlasmaOrdered By: Juvencio Sanchez on 83-50-5448Drwl nitrogen [Mass/Vol]26 mg/dL7-25Providence HospitalUrea nitrogen [Mass/Vol]27 mg/dL7-25Prov[facility] HospitalVitamin D+Metabolites [Mass/volume] in Serum or PlasmaOrdered By: Juvencio Sanchez on 09-57-2525Ibzxkum D+Metabolites [Mass/Vol]50.2 ng/gH43-138 Providence HospitalComment on above:VITAMIN D STATUS 25(OH)VITAMIN D RANGE (ng/mL) Deficient <20 Insufficient 20 to <33Kctlkatwrv99 to 100Reference: Carmel MF,Daniela TINAJERO, Anastasiia CONLEY, et al. Evaluation,treatment, and prevention of vitamin D deficiency; an Endocrine Society clinical practice guideline. JCEM. 2010; 96(7):1911-30.Albumin [Mass/volume] in Serum or PlasmaOrdered By: Mireya Pichardo on 49-47-1569Zqbnpij [Mass/Vol]3.6 g/dL3.2-5.5FWVUMedicine Harrison Community HospitalAutomated erythrocytes count in urine sediment (number/area)Ordered By: Mireya Pichardo on 61-68-4647QPR Auto (Urine sed) [#/Area]0-1 [HPF]0-4FWVUMedicine Harrison Community HospitalAutomated leukocytes count in urine sediment (number/area)Ordered By: Mireya Pichardo on 93-16-0725GSI Auto (Urine sed) [#/Area]1-2 [HPF]0-4FWVUMedicine Harrison Community HospitalBilirubin Test strip Ql (U)Ordered By: Mireya Pichardo on 69-45-3372Hnotkpuqa Ql (U)NegativeNegativeProvidence HospitalColor Auto (U)Ordered By: Mireya Pichardo on 71-82-1477Ubfwm (U)Dark yellowYellowProvidence HospitalCreatinine [Mass/volume] in UrineOrdered By: Mireya Pichardo on 12-29-2021 Creatinine (U) [Mass/Vol]208.6 mg/dLProvidence HospitalComment on above:No reference range establishedCreatinine and Glomerular filtration rate.predicted panel (S/P/Bld)Ordered By: Mireya Pichardo on 50-16-1805Mtsmbjbzji [Mass/Vol]1.34 mg/dL0.64-1.27Providence HospitalErythrocyte distribution width Auto (RBC) [Ratio]Ordered By: Mireya Pichardo on 12-29-2021 Erythrocyte distribution width (RBC) [Ratio]14.7 %12.0-14.8Providence HospitalEstimated glomerular filtration rate (GFR) non- Ordered By: Mireya Pichardo on 81-65-6876IVZ/1.73 sq M.predicted among non-blacks MDRD (S/P/Bld) [Vol rate/Area]52 mL/MinProvidence HospitalFerritin [Mass/volume] in Serum or PlasmaOrdered By: Juvencio Sanchez on 40-81-6734Ohlzneax [Mass/Vol]291.1 ng/mL23.9-336.2FWVUMedicine Harrison Community HospitalHematocrit Auto (Bld) [Volume fraction]Ordered By: Mireya Edmondsondir on 35-34-5175Nlrczfdeoa (Bld) [Volume fraction]39.9 %38.8-50.0Providence HospitalHemoglobin [Mass/volume] in BloodOrdered By: Mireya Marino on 97-95-6963Oolplaysla (Bld) [Mass/Vol]12.9 g/dL13.0-17.0Providence HospitalKetones Auto test strip (U) [Mass/Vol]Ordered By: Mireya Marino on 14-93-3975Bxugxhi (U) [Mass/Vol] TraceNegativeProvidence HospitalLaboratory - Chemistry and Chemistry - challengeOrdered By: Mireya Marino on 87-24-6477Scpettfkd [Mass/Vol] 2.1 mg/dL1.6-2.6FWVUMedicine Harrison Community HospitalLaboratory - UrinalysisOrdered By: Mireya Marino on 12-99-2614Mebczwt casts LM Ql (Urine sed)0-8 [LPF]0-8 [facility] Auto (RBC) [Entitic mass]Ordered By: Mireya Marino on 39-60-3208MSA (RBC) [Entitic mass]29.6 pg27.5-35.2FSy[facility] Auto (RBC) [Mass/Vol]Ordered By: Mireya Marino on 12-29-2021 MCHC (RBC) [Mass/Vol]32.3 g/dL32.5-35.6FWayne HealthCare Main CampusV Auto (RBC) [Entitic vol]Ordered By: Mireya Marino on 29-75-6654WHD (RBC) [Entitic vol] 91.8 fL83.5-101Providence HospitalNitrite Test strip Ql (U)Ordered By: Mireyaolaf Pichardo on 07-46-3971Dbdmqwf Ql (U)NegativeNegUniversity Hospitals Health SystemNo Panel InformationOrdered By: Mireya Pichardo on 75-26-165833- Hydroxy Vitamin D Total42.6 ng/cS72-868TgrzktmcgProvidence HospitalComment on above:VITAMIN D STATUS 25(OH)VITAMIN D RANGE (ng/mL) Deficient <20 Insufficient 20 to <95Ngaljwfqgm60 to 100Reference: Carmel MF,Daniela TINAJERO, Anastasiia CONLEY, et al. Evaluation,treatment, and prevention of vitamin D deficiency; an Endocrine Society clinical practice guideline. JCEM. 2010; 96 (7):1911-30.Estimated GFR ()> 60 mL/MinProvidence HospitalComment on above:GFR estimated reference range: According to KDOQI guidelines, <60 ml/min/1.73m2 is sufficient todiagnose a patient with chronic kidney disease.Pharmacy Creatinine Clearance (ChemN/[facility] HospitalPhosphate [Mass/volume] in Serum or PlasmaOrdered By: Mireya Pichardo on 15-91-3630Usemidfak [Mass/Vol]4.4 mg/dL2.5-4.6FWVUMedicine [facility] Hospital Platelet mean volume Auto (Bld) [Entitic vol]Ordered By: Mireya Pichardo on 66-91-9763Ciejwvnc mean volume (Bld) [Entitic vol]10.1 fL6.6-10.1FWVUMedicine Harrison Community HospitalPlatelets Auto (Bld) [#/Vol]Ordered By: Mireya Pichardo on 49-83-1112Navolejoz (Bld) [#/Vol]202 10*3/dX878-818NnnaorleqProvidence HospitalProtein Auto test strip (U) [Mass/Vol]Ordered By: Mireya Pichardo on 24-16-6936Yemvzrz (U) [Mass/Vol]30 mg/dLNegativeProvidence HospitalProtein [Mass/volume] in UrineOrdered By: Mireya Pichardo on 43-30-2104Ektpoby (U) [Mass/Vol]47 mg/dL0-9Providence HospitalRBC Auto (Bld) [#/Vol]Ordered By: Mireya Pichardo on 99-29-8228QFO (Bld) [#/Vol]4.34 10*6/uL 3.90-5.60[facility] Andersonerum or plasma anion gap determinationOrdered By: Mireya Pichardo on 15-58-8684Iqgfx gap [Moles/Vol]10.9 mmol/L6.0-15.0[facility] Andersonerum or plasma calcium measurement (mass/volume)Ordered By: Mireya Pichardo on 11-02-7640Xiwxpkb [Mass/Vol] 9.2 mg/dL8.2-10.2FMercy Health – The Jewish Hospitalerum or plasma chloride measurement (moles/volume)Ordered By: Mireya Pichardo on 31-33-8687Pxbcoxle [Moles/Vol]104 mmol/E41-643JwcptftnnOur Lady of Mercy Hospital - Andersonerum or plasma glucose measurement (mass/volume)Ordered By: Mireya Pichardo on 92-73-1994Igqcuny [Mass/Vol]94 mg/yX33-024MnyhesruaProvidence HospitalComment on above:ADA recommended reference rangeRandom Glucose Reference Range is dependent on time and content of last meal. Glucose of more than 200 mg/dL in a nonstressed, ambulatory subject supports the diagnosisof Diabetes Mellitus.Serum or plasma intact parathyroid hormone measurement (mass/volume)Ordered By: Mireya Pichardo on 24-11-5892Geviadtprn.intact [Mass/Vol]81.7 pg/zX23-23FhnstfoeqOur Lady of Mercy Hospital - Andersonerum or plasma potassium measurement (moles/volume)Ordered By: Mireya Pichardo on 16-17-9542Dysybaabb [Moles/Vol]4.9 mmol/L3.5-5.1FMercy Health – The Jewish Hospitalerum or plasma sodium measurement (moles/volume)Ordered By: Mireya Pichardo on 05-23-0944Vrmjlt [Moles/Vol]137 mmol/B712-983EzehomolxOur Lady of Mercy Hospital - Andersonerum or plasma total carbon dioxide measurement (moles/volume) Ordered By: Mireya Pichardo on 67-35-5218QM9 [Moles/Vol]27.0 mmol/L22.0-30.0 [facility] Andersonerum or plasma urea nitrogen measurement (mass/volume)Ordered By: Mireya Pichardo on 76-39-3464Nuew nitrogen [Mass/Vol]25 mg/dL9[facility] Andersonerum or plasma uric acid measurement (mass/volume)Ordered By: Mireya Pichardo on 31-44-4030Piobw [Mass/Vol]7.7 mg/dL 2.6-7.2FMercy Health – The Jewish Hospitalpecific gravity Auto test strip (U) [Rel density]Ordered By: Mireya Pichardo on 81-58-2450Sjwfdxvz gravity (U) [Rel density]1.0271.001-1.030[facility] - Andersonquamous epithelial cells detection in urine sediment by light microscopyOrdered By: Mireya Pichardo on 31-43-4688Wvbovfipde cells.squamous LM Ql (Urine sed)0-1 [HPF]0-WVUMedicine Harrison Community HospitalUrine bacteria detection by automated methodOrdered By: Mireya Pichardo on 85-90-6225Damgzywa Auto Ql (U)None seenNone SeenProvidence HospitalUrine clarity by refractometry automatedOrdered By: Mireya Pichardo on 35-27-0128Fehcvrb Refractometry automated (U)ClearCleTrumbull Regional Medical CenterUrine glucose measurement by automated test strip (mass/volume)Ordered By: Mireya Pichardo on 00-08-5486Zlznzhv Auto test strip (U) [Mass/Vol]Normal mg/dLTrumbull Regional Medical CenterUrine hemoglobin detection by automated test stripOrdered By: Mireya Pichadro on 57-33-5815Ynvvcvresh Auto test strip Ql (U)NegativeNegUniversity Hospitals Health SystemUrine leukocyte esterase detection by automated test stripOrdered By: Mireya Pichardo on 71-33-4107Tciioftya esterase Auto test strip Ql (U)NegativeNegUniversity Hospitals Health SystemUrine protein/creatinine ratioOrdered By: Mireya Pichardo on 57-36-5260Qhyvkbh/Creatinine (U) [Ratio]225 mg/g{Cre}0-200Providence HospitalUrobilinogen Auto test strip (U) [Mass/Vol]Ordered By: Mireya Pichardo on 53-86-6801Lpsdbcfmgrjg (U) [Mass/Vol]Normal mg/dLTrumbull Regional Medical CenterWBC Auto (Bld) [#/Vol]Ordered By: Mireya Pichardo on 37-38-9086TPN (Bld) [#/Vol]5.1 10*3/uL4.1-10.5FWVUMedicine Harrison Community HospitalpH Auto test strip (U)Ordered By: Mireya Pichardo on 43-49-6577aS (U)5.5 [pH]5.0-9.0Providence HospitalAlbumin [Mass/volume] in Serum or PlasmaOrdered By: Juvencio Sanchez on 81-30-0569Nyiykxm [Mass/Vol]3.6 g/dL3.2-5.5FWVUMedicine Harrison Community HospitalBasophils Auto (Bld) [#/Vol]Ordered By: Juvencio Sanchez on 12-09-2021 Basophils (Bld) [#/Vol]0.1 10*3/uL0.0-0.2FWVUMed[facility] Basophils/100 WBC Auto (Bld)Ordered By: Juvencio Sanchez on 32-70-5452Bhxvxonmc/100 WBC (Bld)1.7 %.Providence HospitalCT biopsyOrdered By: Juvencio aSnchez on 72-15-6864Wdcenjbghzs [Mass/Vol]202 mg/pH983-800WmvitiapeProvidence HospitalCholesterol [Mass/volume] in Serum or PlasmaOrdered By: Juvencio Sanchez on 08-32-9041Zwjaogbrggz [Mass/Vol]135 mg/vP453-362UdgbuyectProvidence HospitalComment on above:Chol less than 200 mg/dl low riskChol 201-239 mg/dl borderline riskChol 240 mg/dl and greater high riskCholesterol in LDL Calc [Mass/Vol]Ordered By: Juvencio Sanchez on 00-91-2312Qosduvajgfi in LDL [Mass/Vol]74 mg/dL0-100Providence HospitalComment on above:LDL ATP III CLASSIFICATIONLDL less than 100 mg/dL OptimalLDL 100-129 mg/dL Near or above nsolndeYEZ386-847 mg/dL Borderline highLDL 160-189 mg/dL HighLDL greater than 189 mg/dL Very highCholesterol in VLDL Calc [Mass/Vol]Ordered By: Juvencio Sanchez on 68-95-3656Zxmrdfvzgvy in VLDL [Mass/Vol]26 mg/dLProvidence HospitalCreatinine and Glomerular filtration rate.predicted panel (S/P/Bld)Ordered By: Juvencio Sanchez on 50-04-0783Pugdrhwlco [Mass/Vol]1.63 mg/dL0.64-1.27Providence HospitalEosinophils Auto (Bld) [#/Vol]Ordered By: Juvencio Sanchez on 33-67-4512Xbhdunoxflg (Bld) [#/Vol]0.3 10*3/uL0.0-0.45Providence HospitalEosinophils/100 WBC Auto (Bld)Ordered By: Juvencio Sanchez on 11-26-6013Bjifedhfwjd/100 WBC (Bld)7.1 %.[facility] Erythrocyte distribution width Auto (RBC) [Ratio]Ordered By: Juvencio Sanchez on 83-34-6527Jzomkiyccnn distribution width (RBC) [Ratio]14.1 %12.0-14.8Providence HospitalEstimated glomerular filtration rate (GFR) non- AmericanOrdered By: Juvencio Sanchez on 10-94-1383XQN/1.73 sq M.predicted among non- blacks MDRD (S/P/Bld) [Vol rate/Area]41 mL/MinProvidence Hospital Ferritin [Mass/volume] in Serum or PlasmaOrdered By: Juvencio Sanchez on 12-09-2021 Ferritin [Mass/Vol]351.4 ng/mL23.9-336.2FWVUMedicine [facility] Hospital Globulin Calc (S) [Mass/Vol]Ordered By: Juvencio Sanchez on 34-77-3687Galotfqc (S) [Mass/Vol]2.6 g/dLProvidence HospitalGlucose mean value [Mass/volume] in Blood Estimated from glycated hemoglobinOrdered By: Juvencio Sanchez on 27-41-8732Xutxmev glucose Estimated from glycated hemoglobin (Bld) [Mass/Vol]126 mg/dLProvidence HospitalHematocrit Auto (Bld) [Volume fraction]Ordered By: Juvencio Sanchez on 28-48-5259Vftsndpxjs (Bld) [Volume fraction]40.5 %38.8-50.0Providence HospitalHemoglobin A1c percentageOrdered By: Juvencio Sanchez on 91-26-1143ElL3u (Bld) [Mass fraction]6.0 % 4.3-5.6FWVUMedicine Harrison Community HospitalComment on above:Increased risk for diabetes: 5.7 - 6.4diabetes: >6.4glycemic control for adults with diabetes: &l t;7.0Hemoglobin [Mass/volume] in BloodOrdered By: Juvencio Sanchez on 12-09-2021 Hemoglobin (Bld) [Mass/Vol]13.2 g/dL13.0-17.0[facility] Iron [Mass/volume] in Serum or PlasmaOrdered By: Juvencio Sanchez on 49-80-7682Zaov [Mass/Vol]95 ug/uO04-316JaeoqrexbProvidence HospitalIron binding capacity [Mass/volume] in Serum or PlasmaOrdered By: Juvencio Sanchez on 08-56-7838Limq binding capacity [Mass/Vol]283 ug/eG156-122AlqhqnkhcProvidence HospitalIron saturation [Mass Fraction] in Serum or PlasmaOrdered By: Juvencio Sanchez on 06-04-8202Njih saturation [Mass fraction]33.0 %20-50Providence HospitalLaboratory - Hematology and Cell countsOrdered By: Juvencio Sanchez on 77-40-8859Gupdmiiqj RBC/100 WBC (Bld) [Ratio]0.0 %0-0.5FWVUMedicine Harrison Community HospitalLeukocytes [#/volume] in Blood by Automated countOrdered By: Juvencio Sanchez on 13-13-0105RRH (Bld) [#/Vol]4.0 10*3/uL4.5-11.0Providence HospitalLymphocytes Auto (Bld) [#/Vol]Ordered By: Juvencio Sanchez on 15-80-2799Cpmanrhpspv (Bld) [#/Vol]0.9 10*3/uL1.00-4.8Providence HospitalLymphocytes/100 WBC Auto (Bld)Ordered By: Juvencio Sanchez on 12-09-2021 Lymphocytes/100 WBC (Bld)23.6 %.Providence HospitalMCH Auto (RBC) [Entitic mass]Ordered By: Juvencio Sanchez on 65-33-9980QKR (RBC) [Entitic mass]29.8 pg27.5-35.2FWVUMedicine Harrison Community HospitalMCHC Auto (RBC) [Mass/Vol]Ordered By: Juvencio Sanchez on 31-42-7695ZQTD (RBC) [Mass/Vol]32.7 g/dL32.5-35.6FWVUMedicine Harrison Community HospitalMCV Auto (RBC) [Entitic vol]Ordered By: Juvencio Sanchez on 19-95-5086MGH (RBC) [Entitic vol]91.1 fL83.5-101Providence HospitalMonocytes Auto (Bld) [#/Vol]Ordered By: Juvencio Sanchez on 12-09-2021 Monocytes (Bld) [#/Vol]0.6 10*3/uL0.0-0.8[facility] Monocytes/100 WBC Auto (Bld)Ordered By: Juvencio Sanchez on 44-90-0762Zghwrzwkb/100 WBC (Bld)15.1 %.Providence HospitalNeutrophils Auto (Bld) [#/Vol] Ordered By: Juvencio Sanchez on 76-61-8916Hkkuwtypxhc (Bld) [#/Vol]2.1 10*3/uL 1.8-7.7FWVUMedicine Harrison Community HospitalNeutrophils/100 WBC Auto (Bld)Ordered By: Juvencio Sanchez on 28-50-1121Phejcdjtnty/100 WBC (Bld)52.5 %.Providence HospitalNo Panel InformationOrdered By: Juvencio Sanchez on 12-09-2021 Estimated GFR ()50 mL/MinProvidence Hospital Comment on above:GFR estimated reference range: According to KDOQI guidelines, <60 ml/min/1.73m2 is sufficient todiagnose a patient with chronic kidney disease.Pharmacy Creatinine Clearance (ChemN/[facility] Platelet mean volume Auto (Bld) [Entitic vol]Ordered By: Juvencio Sanchez on 56-26-4659Amegeqew mean volume (Bld) [Entitic vol]9.4 fL6.6-10.1FWVUMedicine Harrison Community HospitalPlatelets Auto (Bld) [#/Vol]Ordered By: Juvencio Sanchez on 29-01-9150Wfidhtbes (Bld) [#/Vol]182 10*3/uM679-933CarewvaoyProvidence HospitalProtein [Mass/volume] in Serum or PlasmaOrdered By: Juvencio Sanchez on 19-37-9160Pjpltbs [Mass/Vol]6.2 g/dL6.1-7.9Providence HospitalRBC Auto (Bld) [#/Vol]Ordered By: Juvencio Sanchez on 37-58-6124KOP (Bld) [#/Vol]4.44 10*6/uL3.90-5.60[facility] Andersonerum or plasma alanine aminotransferase measurement without P-5'-P (enzymatic activiOrdered By: Juvencio Sanchez on 79-19-4985ZKZ No additional P-5'-P [Catalytic activity/Vol]23 U/L10-60 [facility] Andersonerum or plasma albumin/globulin mass ratio Ordered By: Juvencio Sanchez on 00-93-2283Xvkjqut/Globulin [Mass ratio]1.4 {ratio} [facility] Andersonerum or plasma alkaline phosphatase measurement (enzymatic activity/volume)Ordered By: Juvencio Sanchez on 63-61-7399XTL [Catalytic activity/Vol]98 U/F22-39QzmaqcmoqOur Lady of Mercy Hospital - Andersonerum or plasma anion gap determinationOrdered By: Juvencio Sanchez on 31-89-1897Zvsmg gap [Moles/Vol]12.3 mmol/L6.0-15.0[facility] Andersonerum or plasma aspartate aminotransferase measurement (enzymatic activity/volume)Ordered By: Juvencio Sanchez on 94-09-2489DNS [Catalytic activity/Vol]23 U/V35-65PnitsrcwwOur Lady of Mercy Hospital - Andersonerum or plasma calcium measurement (mass/volume)Ordered By: Juvencio Sanchez on 96-83-3199Xejjiln [Mass/Vol]9.1 mg/dL8.2-10.2FMercy Health – The Jewish Hospitalerum or plasma chloride measurement (moles/volume) Ordered By: Juvencio Sanchez on 24-06-2223Jsdnrhxd [Moles/Vol]103 mmol/L95-114 [facility] Andersonerum or plasma glucose measurement (mass/volume)Ordered By: Juvencio Sanchez on 44-81-9915Vfebtqk [Mass/Vol]88 mg/dL 70-100Providence HospitalComment on above:ADA recommended reference rangeRandom Glucose Reference Range is dependent on time and content of last meal. Glucose of more than 200 mg/dL in a nonstressed, ambulatory subject supports the diagnosisof Diabetes Mellitus.Serum or plasma high density lipoprotein (HDL) cholesterol measurementOrdered By: Juvencio Sanchez on 12-09-2021 Cholesterol in HDL [Mass/Vol]34 mg/qH49-72YactitzpsProvidence Hospital Comment on above:HDL CHOL ATP-III CLASSIFICATION Cardiovascular RiskHDL > or equal to 60 mg/dL LOWHDL < 40 mg/dL HIGHSerum or plasma potassium measurement (moles/volume)Ordered By: Juvencio Sanchez on 15-32-7377Fzloimosa [Moles/Vol]4.7 mmol/L3.5-5.1FMercy Health – The Jewish Hospitalerum or plasma sodium measurement (moles/volume)Ordered By: Juvencio Sanchez on 19-95-7245Pyfeqc [Moles/Vol]136 mmol/L398-171GoairxckkOur Lady of Mercy Hospital - Andersonerum or plasma total bilirubin measurement (mass/volume)Ordered By: Juvencio Sanchez on 43-65-3357Htddgwvho [Mass/Vol]0.8 mg/dL0.3-1.2FMercy Health – The Jewish Hospitalerum or plasma total carbon dioxide measurement (moles/volume)Ordered By: Juvencio Sanchez on 12-09-2021 CO2 [Moles/Vol]25.4 mmol/L22.0-30.0[facility] Andersonerum or plasma total cholesterol/high density lipoprotein (HDL) cholesterol mass rat Ordered By: Juvencio Sanchez on 45-26-5771Zysyzoijbzq.total/Cholesterol in HDL [Mass ratio]4.0 {ratio}<5.0[facility] Andersonerum or plasma urea nitrogen measurement (mass/volume)Ordered By: Juvencio Sanchez on 34-00-0623Wzmv nitrogen [Mass/Vol]26 mg/dL9-23Providence HospitalTSH DL <= 0.005 mIU/L QnOrdered By: Juvencio Sanchez on 08-61-1531KNY Qn3.15 m[IU]/L0.45-5.33 [facility] HospitalTriglyceride [Mass/volume] in Serum or Plasma Ordered By: Juvencio Sanchez on 47-93-1415Rjqpzmiyqxnh [Mass/Vol]134 mg/bI36-498 Providence HospitalComment on above:TRIG ATP III CLASSIFICATIONTRIG less than 150 mg/dL NormalTRIG 150-199 mg/dL Borderline highTRIG 200-500 mg/dL High TRIG greater than 500 mg/dL Very highStandard traceable to the Center for Disease Conrtrol and Prevention (CDC) test method. BNPon 55-07-2920Fntwmstyixp peptide B (Bld) [Mass/Vol]959.0 pg/mLNormal<=1,800.0 [facility] HospitalComment on above:Performed By: #### BNP #### [facility] [address] [place] [address] Norberto KarenCBC AUTO DIFFon 15-66-1849Jcslyfjul (Bld) [#/Vol]0.0 103/ulNormal 0.0-0.1The [facility] HospitalComment on above:Performed By: #### CBC #### [facility] [address] [place], [place] [id number] Norberto KarenBasophils/100 WBC (Bld)0.7 %Normal0.2-2.0[facility] Comment on above:Performed By: #### CBC #### [facility] [address] [place] [address] Norberto KarenEosinophils (Bld) [#/Vol]0.2 103/ulNormal0.0-0.7The [facility] HospitalComment on above:Performed By: #### CBC #### [facility] [address] [place] [address] Norberto KarenEosinophils/100 WBC (Bld)2.8 %Normal0.9-7.0[facility] Comment on above:Performed By: #### CBC #### [facility] [address] [place], [place] [address] Norberto KarenErythrocyte distribution width (RBC) [Ratio]14.4 %Oqfawg26.0-15.0[facility] HospitalComment on above:Performed By: #### CBC #### [facility] [address] [place] [address] Norberto KarenHematocrit (Bld) [Volume fraction]37.8 %Critically low42.0-54.0The [facility] HospitalComment on above:Performed By: #### CBC #### [facility] [address] [place] [address] Norberot KarenHemoglobin (Bld) [Mass/Vol]12.4 g/dLCritically low14.0-18.0The [facility] HospitalComment on above:Performed By: #### CBC #### [facility] [address] [place] [address] Norberto KarenIG #0.01 10e3/ulNormal0.00-0.03The [facility] HospitalComment on above:Performed By: #### CBC #### [facility] [address] [place] [address] Norberto KarenIG %0.2 %Normal0.0-0.5The [facility] HospitalComment on above: Performed By: #### CBC #### [facility] [address] [place] [address] Norberto KarenLymphocytes (Bld) [#/Vol]1.1 103/ulCritically low1.2-3.8The [facility] HospitalComment on above:Performed By: #### CBC #### [facility] [address] [place] [address] Norberto KarenLymphocytes/100 WBC (Bld)21.2 %Jiykhm34.5-60.0[facility] Comment on above:Performed By: #### CBC #### [facility] [address] [place] [address] Norberto KarenMANUAL DIFF REQNONormalThe [facility] HospitalComment on above: Performed By: #### CBC #### [facility] [address] [place] [address] Norberto KarenMCH (RBC) [Entitic mass]30.4 jnPqhobf09.9-34.0[facility] Comment on above:Performed By: #### CBC #### [facility] [address] [place] [address] Norberto KarenMCHC (RBC) [Mass/Vol]32.8 g/vGNpmexy20.9-35.2[facility] Comment on above:Performed By: #### CBC #### [facility] [address] [place] [address] Norberto KarenMCV (RBC) [Entitic vol]92.6 gKFwyoye98.0-94.0[facility] Comment on above:Performed By: #### CBC #### [facility] [address] [place] [address] Norberto KarenMonocytes (Bld) [#/Vol]0.6 103/ulNormal0.3-0.8[facility] Comment on above:Performed By: #### CBC #### [facility] [address] [place] [address] Norberto KarenMonocytes/100 WBC (Bld)12.0 %Normal1.7-12.0[facility] Comment on above:Performed By: #### CBC #### [facility] [address] [place] [address] Norberto KarenNeutrophils (Bld) [#/Vol]3.4 103/ulNormal1.4-6.5The [facility] HospitalComment on above:Performed By: #### CBC #### [facility] [address] [place] [address] Norberto KarenNeutrophils/100 WBC (Bld)63.1 %Xhixca92.0-75.0[facility] Comment on above:Performed By: #### CBC #### [facility] [address] [place] [address] Norberto KarenPlatelet mean volume (Bld) [Entitic vol]11.8 fLNormal9.5-13.5The [facility] HospitalComment on above:Performed By: #### CBC #### [facility] [address] [place] [address] Norberto KarenPlatelets (Bld) [#/Vol]177 103/opPdufox251-230Rxe [facility] Comment on above:Performed By: #### CBC #### [facility] [address] [place] [address] Norberto KarenRBC (Bld) [#/Vol]4.08 106/ulCritically low4.70-6.10The [facility] HospitalComment on above:Performed By: #### CBC #### [facility] [address] [place] [address] Norberto KarenWBC (Bld) [#/Vol]5.3 103/ulNormal4.0-11.0[facility] Comment on above:Performed By: #### CBC #### [facility] [address] [place] [address] Norberto KarenD-DIMERon 13-31-0751O-DIMER COMMENTSSEE BELOWWooster Community HospitalComment on above:Result Comment: Increases in D-Dimer concentration observed with thromboembolic events can be variable due to localization, size, and age of the thrombus. Therefore, a thromboembolic event cannot be diagnosed with certainty on the basis of the reference range. D-Dimers may also be elevated for a variety of disorders including: advanced age, , coronary disease, cancer, liver disease, infection, inflammation, hematoma, DIC, trauma, post-surgery, diabetes, thrombolytic or anticoagulant therapy, stress, and generalized hospitalization.Performed By: #### DDIM #### [facility] [address] [place] [address] Norberto KarenFibrin D-dimer FEU IA (Bld) [Mass/Vol]0.68 mg/L FEUCritically high 0.19-0.50The [facility] HospitalComasc[facility] on above:Result Comment: test repeated critical value verifiedPerformed By: #### DDIM #### [facility] [address] [place] [address] Norberto KarenPROF CHEM 8 (BAS METB)on 90-37-7914Rvbys gap [Moles/Vol]17.5 mmol/L NormalThe [facility] HospitalComment on above:Performed By: #### BMP #### [facility] [address] [place] [address] Norberto KarenCalcium [Mass/Vol]8.9 mg/dLNormal8.4-10.2[facility] Comment on above:Performed By: #### BMP #### [facility] [address] [place] [address] Norberto KarenChloride [Moles/Vol]105 mmol/KDqornm04-532Aij [facility] Comment on above:Performed By: #### BMP #### [facility] [address] [place] [address] Norberto KarenCO2 [Moles/Vol]22.8 mmol/KBsafga20.0-30.0The [facility] Comment on above:Performed By: #### BMP #### [facility] [address] [place] [address] Norberto KarenCreatinine [Mass/Vol]1.35 mg/dLCritically high0.66-1.25The [facility] HospitalComment on above:Performed By: #### BMP #### [facility] [address] [place] [address] Norberto KarenEGFR-AF ZAMBIAN>60Normal>=60[facility] HospitalComment on above: Performed By: #### BMP #### [facility] [address] [place] [address] Norberto KarenEGFR-NON AF OAYPRQXI39 mL/min/1.49a1Onqqgfayth low>=60[facility] HospitalComment on above:Performed By: #### BMP #### [facility] [address] [place] [address] Norberto KarenGlucose [Mass/Vol]121 mg/dLCritically brjx63-063JwmCorey HospitalComment on above:Performed By: #### BMP #### [facility] [address] [place] [address] Norberto KarenPotassium [Moles/Vol]4.3 mmol/LNormal3.4-5.0The [facility] Comment on above:Performed By: #### BMP #### [facility] [address] [place] [address] Norberto KarenSodium [Moles/Vol]141 mmol/UIwasiw750-971HcpCorey Hospital Comment on above:Performed By: #### BMP #### [facility] [address] [place] [address] Norberto KarenUrea nitrogen [Mass/Vol]32.0 mg/dLCritically high9.0-20.0The [facility] HospitalComment on above:Performed By: #### BMP #### [facility] [address] [place] [address] Norberto KarenUrea nitrogen/Creatinine [Mass ratio]23.7 mg/mgNormalThe [facility] HospitalComment on above:Performed By: #### BMP #### [facility] [address] [place] [address] Norberto KarenPROTIMEon 46-76-4080BLA Coag (PPP) [Relative time]0.98 {INR}Normal The [facility] HospitalComment on above:Performed By: #### PT, PTT #### [facility] [address] [place] [address] Norberto KarenPT Coag (PPP) [Time]10.7 sNormal9.0-11.6The [facility] HospitalComment on above:Performed By: #### PT, PTT #### [facility] [address] [place] [address] Norberto KarenPT Coag (PPP) [Time]SEE BELOWNormSumma HealthComment on above:Result Comment: DESIRED INR: 2.0 - 3.0 CONDITIONS NOT LISTED BELOW 2.5 - 3.5 FOR PROSTHETIC HEART VALVE REPLACEMENT 2.5 - 3.5 RECURRENT THROMBOSIS Performed By: #### PT, PTT #### [facility] [address] [place] [address] Norberto KarenPTTon 96-12-2817wYPN Coag (Bld) [Time]28.7 uGxvbcj48.3-36.2The [facility] HospitalComment on above:Performed By: #### PT, PTT #### [facility] [address] [place] [address] Norberto KarenCBC AUTO DIFFon 50-39-3217Tnnljacgh (Bld) [#/Vol]0.0 103/ulNormal 0.0-0.1[facility] HospitalComment on above:Performed By: #### CBC #### [facility] [address] [place] [address] Norberto KarenBasophils/100 WBC (Bld)0.6 %Normal0.2-2.0The [facility] Comment on above:Performed By: #### CBC #### [facility] [address] [place] [address] Norberto KarenEosinophils (Bld) [#/Vol]0.1 103/ulNormal0.0-0.7The [facility] HospitalComment on above:Performed By: #### CBC #### [facility] [address] [place] [address] Norberto KarenEosinophils/100 WBC (Bld)2.2 %Normal0.9-7.0The [facility] Comment on above:Performed By: #### CBC #### [facility] [address] [place] [address] Norberto KarenErythrocyte distribution width (RBC) [Ratio]13.8 %Qwqtkm26.0-15.0The [facility] HospitalComment on above:Performed By: #### CBC #### [facility] [address] [place] [address] Norberto KarenHematocrit (Bld) [Volume fraction]37.4 %Critically low42.0-54.0The [facility] HospitalComment on above:Performed By: #### CBC #### [facility] [address] [place] [address] Norberto KarenHemoglobin (Bld) [Mass/Vol]12.2 g/dLCritically low14.0-18.0[facility] HospitalComment on above:Performed By: #### CBC #### [facility] [address] [place] [address] Norberto KarenIG #0.02 10e3/ulNormal0.00-0.03The [facility] HospitalComment on above:Performed By: #### CBC #### [facility] [address] [place] [address] Norberto KarenIG %0.3 %Normal0.0-0.5The [facility] HospitalComment on above: Performed By: #### CBC #### [facility] [address] [place] [address] Norberto KarenLymphocytes (Bld) [#/Vol]1.3 103/ulNormal1.2-3.8The [facility] HospitalComment on above:Performed By: #### CBC #### [facility] [address] [place] [address] Norberto KarenLymphocytes/100 WBC (Bld)19.8 %Critically low20.5-60.0The [facility] HospitalComment on above:Performed By: #### CBC #### [facility] [address] [place] [address] Norberto KarenMANUAL DIFF REQNONormalThe [facility] HospitalComment on above: Performed By: #### CBC #### [facility] [address] [place] [address] Norberto KarenH (RBC) [Entitic mass]29.9 csRsncmx08.9-34.0The [facility] Comment on above:Performed By: #### CBC #### [facility] [address] [place] [address] Norberto KarenMCHC (RBC) [Mass/Vol]32.6 g/iMWjvfnc53.9-35.2The [facility] Comment on above:Performed By: #### CBC #### [facility] [address] [place] [address] Norberto KarenMCV (RBC) [Entitic vol]91.7 jMFpntef52.0-94.0The [facility] Comment on above:Performed By: #### CBC #### [facility] [address] [place] [address] Norberto KarenMonocytes (Bld) [#/Vol]0.9 103/ulCritically high0.3-0.8The [facility] HospitalComment on above:Performed By: #### CBC #### [facility] [address] [address] Norberto KarenMonocytes/100 WBC (Bld)14.2 %Critically high1.7-12.0The [facility] HospitalComment on above:Performed By: #### CBC #### [facility] [address] [place], [place] [address] Norberto KarenNeutrophils (Bld) [#/Vol]4.0 103/ulNormal1.4-6.5The [facility] HospitalComment on above:Performed By: #### CBC #### [facility] [address] [place], [place] [address] Norberto KarenNeutrophils/100 WBC (Bld)62.9 %Ynjsap17.0-75.0The [facility] Comment on above:Performed By: #### CBC #### [facility] [address] [place] [address] Norberto KarenPlatelet mean volume (Bld) [Entitic vol]10.6 fLNormal9.5-13.5The [facility] HospitalComment on above:Performed By: #### CBC #### [facility] [address] [place] [address] Norberto KarenPlatelets (Bld) [#/Vol]203 103/qoXgcicu445-028Hkd [facility] Comment on above:Performed By: #### CBC #### [facility] [address] [place] [address] Norberto KarenRBC (Bld) [#/Vol]4.08 106/ulCritically low4.70-6.10The [facility] HospitalComment on above:Performed By: #### CBC #### [facility] [address] [place] [address] Norberto KarenWBC (Bld) [#/Vol]6.4 103/ulNormal4.0-11.0The [facility] Comment on above:Performed By: #### CBC #### [facility] [address] [place], [place] [address] Norberto KarenPROF CHEM 8 (BAS METB)on 23-92-0078Xjcwm gap [Moles/Vol]13.6 mmol/L NormalThe [facility] HospitalComment on above:Performed By: #### BMP ####[facility] [address] [place] [address] KarenCalcium [Mass/Vol]9.0 mg/dLNormal8.4-10.2The [facility] HospitalComment on above:Performed By: #### BMP ####[facility] [address] [place], [place] [address]Gerken KarenChloride [Moles/Vol]104 mmol/TEwvdii18-447Ofl [facility] HospitalComment on above:Performed By: #### BMP ####[facility] [address] [place] [address] KarenCO2 [Moles/Vol] 26.5 mmol/MZmkjbw42.0-30.0The [facility] HospitalComment on above:Performed By: #### BMP ####[facility] [address] [place] [address] KarenCreatinine [Mass/Vol]1.31 mg/dLCritically high0.66-1.25The [facility] HospitalComment on above:Performed By: #### BMP ####[facility] [address] [place] [address] KarenEGFR-AF ZAMBIAN >60Normal>=60The [facility] HospitalComment on above:Performed By: #### BMP ####[facility] [address] [place] [address] KarenEGFR-NON AF HKACOZKE17 mL/min/1.02h3Rkumdtmduc low>=60The [facility] Comment on above:Performed By: #### BMP ####[facility] [address] [place], [place] [address]Gerken KarenGlucose [Mass/Vol]99 mg/dLNormal 74-106The [facility] HospitalComment on above:Performed By: #### BMP ####[facility] [address] [place], [place] [address]Gerken Melania Potassium [Moles/Vol]4.1 mmol/LNormal3.4-5.0[facility] on above:Performed By: #### BMP ####[facility] [address] [address]Gerken KarenSodium [Moles/Vol]140 mmol/OCtoybd647-333 [facility] on above:Performed By: #### BMP ####[facility] [address] [address]Gerken KarenUrea nitrogen [Mass/Vol]26.0 mg/dLCritically high9.0-20.0[facility] HospitalComment on above:Performed By: #### BMP ####[facility] [address] [place], [place] [address]Gerken KarenUrea nitrogen/Creatinine [Mass ratio]19.8 mg/mgNoUniversity Hospitals Portage Medical Centerment on above:Performed By: #### BMP ####[facility] [address] [place], [place] [address]Gerken KarenPROTIMEon 69-80-5914PLE Coag (PPP) [Relative time]0.95 {INR}NormalThe [facility] on above:Performed By: #### PTT, PT #### [facility] [address] [place], [place] [address] Norberto KarenPT Coag (PPP) [Time]10.4 sNormal9.0-11.6The [facility] on above:Performed By: #### PTT, PT #### [facility] [address] [place], [place] [address] Norberto KarenPT Coag (PPP) [Time]SEE BELOWNormKettering Health Springfield on above:Result Comment: DESIRED INR: 2.0 - 3.0 CONDITIONS NOT LISTED BELOW 2.5 - 3.5 FOR PROSTHETIC HEART VALVE REPLACEMENT 2.5 - 3.5 RECURRENT THROMBOSIS Performed By: #### PTT, PT #### [facility] [address] [place] [address] Norberto KarenPTTon [id number] Coag (Bld) [Time]28.3 vEekalr70.3-36.2The [facility] HospitalComment on above:Performed By: #### PTT, PT #### [facility] [address] [id number] Norberto AragonenXR CHEST 2 Von [id number] CHEST 2 VEXAMINATION: XR CHEST 2 V HISTORY: Pre-surgery evaluation , hypertension COMPARISON: No relevant comparison available. TECHNIQUE: PA and lateral FINDINGS: LUNGS: Mild scattered bilateral parenchymal opacities best seen on the PA projection. VASCULATURE: No increased pulmonary vasculature. PLEURA: No pneumothorax, effusion, or pleural thickening. CARDIAC: No cardiomegaly or cardiac silhouette abnormality. MEDIASTINUM: No visible mass or adenopathy. BONES: No fracture or visible bone lesion. Degenerative spondylosis OTHER: Negative. IMPRESSION: Mild patchy parenchymal infiltrates, possibly chronic interstitial changes Electronically authenticated by: JUVENCIO CHATMAN Date: 2020-03-03 14:14[facility] [id number] [facility]O ID: [id number] Author: Harmony Colbert (Tech) Service: Radiology Author Type: Digital Marketing Associate Type: Allied Health Filed: 06/19/2019 6:59 PM Note Text: Radiology Service Progress Note PATIENT NAME: Indiana Hines DATE OF SERVICE: June 19, 2019 TIME: 6:39 PM PATIENT IDENTITY VERIFICATION COMPLETED USING TWO (2) IDENTIFIERS: Name and Date of confirmed by patient verbally and Name and Date of confirmed by identification band. FALL SCREENING: Has the patient had 2 falls in the last year or 1 fall with injury or currently using an Ambulatory Assistive Device (Walker, Cane, Wheelchair, Crutches, etc.)? Yes, Patient High Risk for Falls What interventions were put in place to prevent falls during this visit? Yellow Falls Risk Wristband Applied PATIENT GENDER DATA: Male PATIENT RELEVANT IMPLANT DATA REVIEWED: Yes RADIOLOGY DEPARTMENT: MR; Exam(s) Completed: Spine: Lumbar spine PERIPHERAL IV DATA: Not applicable SIGNED BY: Savanna JENSEN(Danyelle)(Harmony Stevenson June 19, 2019 6:39 PMNPine Rest Christian Mental Health ServicesMRI LUMBAR SPINE WO IVCONon [id number] LUMBAR SPINE WO IVCON* * *Final Report* * * DATE OF EXAM: Jun 19 2019 6:59PM [facility] 0303 - MRI LUMBAR SPINE WO IVCON / PROCEDURE REASON: multiple diagnoses * * * * Physician Interpretation * * * * EXAMINATION: MRI LUMBAR SPINE WO IVCON CLINICAL HISTORY: Lumbar spondylosis. Spinal stenosis, lumbar region with neurogenic claudication. Right foot drop. This information is taken directly from the weight recorder system. TECHNIQUE: Routine lumbosacral spine MR protocol without gadolinium. MQ: [id number] COMPARISON: Lumbar plain films 04/16/2019. RESULT: Counting reference: Lumbosacral junction. For the purposes of this report, L4-5 is considered the level of the iliac crest and assume there are 5 lumbar-type vertebrae. Anatomic variant: None. Alignment: Mild scoliotic curvature convex right, apex L3-L4. Sagittal alignment is grossly normal. Bone marrow signal/fracture: Old Schmorl's nodes lower L2 and upper L3. No other pathologic marrow infiltration. Conus: Distal cord terminates normally at L1-L2. Paraspinal soft tissues: Obesity. No paraspinal masses. Lower thoracic spine: Canal and foramina are normally patent at T10-T11 and T11-T12. T12-L1: Canal and foramina are patent. L1-L2: Mild loss of disc height, partial loss of T2 hyperintensity in the disc, and facet degenerative change. Central thecal sac is patent. Foramina are patent. L2-L3: Disc bulging, facet degenerative change. Moderate canal narrowing, particularly left lateral recess. Mild right lateral recess narrowing. Loss of disc height and facet degenerative change contributes to severe bilateral foraminal narrowing. L3-L4: Disc bulging and facet degenerative change. Moderate-severe narrowing of spinal canal. Severe left and moderate right lateral recess narrowing likely contributing to radiculopathy. Loss of disc height and bony degenerative change contributes to moderate bilateral foraminal narrowing. L4-L5: Disc bulging and facet degenerative change. Moderate to severe spinal stenosis including the lateral recesses. Neural foramina remain patent. L5-S1: Disc bulging and facet degenerative change. Shallow central protrusion. No direct compression of either descending S1 nerve root sleeve. Narrowing of the central thecal sac primarily related to epidural lipomatosis. Right neural foramen is patent. Moderate to severe left foraminal narrowing. Sacrum and iliac wings: No marrow edema. 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 Moderate to severe spinal stenosis at L3-L4. There is multilevel lateral recess and foraminal narrowing which may contribute to radiculopathy. Degree of obesity may contribute to mechanical low back pain or sensations of weakness. Anatomic Thoracic/Lumbar Variant: None. L4-5 is considered the level of the iliac crest and assume there are 5 lumbar-type vertebrae. Economics Instructor: VICK Transcribe Date/Time: Jun 19 2019 7:14P Dictated by : EDGAR QUICK MD This examination was interpreted and the report reviewed and electronically signed by: EDGAR QUICK MD on Jun 19 2019 7:23PM EST [id number] Vital Signs Date TimeVital SignValuePerforming [id number] 12:56-0400Body ckebsz372.42 cmDavid Girvin DO Work Phone: 1(567)[address] [place], [place] [address]1410-02-2025 12:56-0400 Body mass index (BMI) [Ratio]32.4 kg/x4Zrpeh Girblair DO Work Phone: 1(680)[address] [place], [place] [address]1410-02-2025 12:56-0400 Body .58 kgDavid Girvin DO Work Phone: 1(061)[address] [place], [place] [address]10-02-2025 12:56-0400 Diastolic blood mm[Hg]Juvencio Sanchez DO Work Phone: 1(563)[address]10-02-2025 12:56-0400 Heart rate63 /Reddydexter Michaelblair DO Work Phone: 1(150)[address]10-02-2025 12:56-0400 Respiratory rate18 /minDavid Girvin DO Work Phone: 1(997)[address] [place], [place] [address]10-02-2025 12:56-0400 SaO2% (BldA) [Mass fraction]100 %Juvencio Sanchez DO Work Phone: 1(968)[address] [place], [place] 352[address]10-02-2025 12:56-0400 Systolic blood fmsefsns586 mm[Hg]Juvencio Sanchez DO Work Phone: 1(419)[address] [place], [place] 352[address]09-15-2025 15:52-0400 Body lemxmh154.42 cmDalidiadexter Michaelblair DO Work Phone: 1(468)[address] [place], [place] 352[address]09-15-2025 15:52-0400 Body fexzpfisjbj38.7 [degF]Juvencio Sanchez DO Work Phone: 1(056)[address] [place], [place] 3521409-15-2025 15:52-0400 Body eabfzb334 kgDalidiadexter Sanchez DO Work Phone: [phone])[address] [place], [place] 3521409-15-2025 15:52-0400 Diastolic blood dkdrveji85 mm[Hg]Juvencio Sanchez DO Work Phone: 1(633)[address] [place], [place] 3521409-15-2025 15:52-0400 Heart rate60 /Reddydexter Sanchez DO Work Phone: 1(384)[address] [place], [place] 3521409-15-2025 15:52-0400 Respiratory rate20 /Jayjayshavonne Sanchez DO Work Phone: 1(992)[address] [place], [place] 3521409-15-2025 15:52-0400 SaO2% (BldA) [Mass fraction]100 %Juvencio Sanchez DO Work Phone: 1(576)[address] [place], [place] 3521409-15-2025 15:52-0400 Systolic blood yujodtze367 mm[Hg]Juvencio Sanchez DO Work Phone: 1(437)[address] [place], [place] 3521409-11-2025 09:13-0400 Body cbhoas009.42 cmDasingh Sanchez DO Work Phone: 1(467)[address] [place], [place] 3521409-11-2025 09:13-0400 Body mass index (BMI) [Ratio]32.1 kg/m5Wovafsingh Sanchez DO Work Phone: 1(815)[address] [place], [place] 3521409-11-2025 09:13-0400 Body jaslmziebcm21.8 [degF]Juvencio Sanchez DO Work Phone: 1(070)[address] [place], [place] 352[address]09-11-2025 09:13-0400 Body zwmdaj374.33 kgDasingh Sanchez DO Work Phone: 1(419)[address]09-11-2025 09:13-0400 Diastolic blood fucfdpst40 mm[Hg]Juvencio Sanchez DO Work Phone: 1(679)[address]09-11-2025 09:13-0400 Heart rate53 /minDriccardod Fernandavin DO Work Phone: 1(667)[address] [place], [place] 352[address]09-11-2025 09:13-0400 SaO2% (BldA) [Mass fraction]99 %Juvencio Sanchez DO Work Phone: 1(571)[address]09-11-2025 09:13-0400 Systolic blood hwelnvpw465 mm[Hg]Juvencio Sanchez DO Work Phone: 1(271)[address] [place], [place] 3521408-14-2025 10:31-0400 Body .13 kgDasingh Sanchez DO Work Phone: 1(879)[address] [place], [place] 352[address]08-14-2025 10:31-0400 Diastolic blood mm[Hg]Juvencio Sanchez DO Work Phone: 1(550)[address]08-14-2025 10:31-0400 Heart rate56 /Reddydexter Michaelblair DO Work Phone: 1(038)[address]08-14-2025 10:31-0400 Respiratory rate16 /Jayjayshavonne Michaelblair DO Work Phone: 1(153)[address] [place], [place] 352[address]08-14-2025 10:31-0400 SaO2% (BldA) [Mass fraction]98 %Juvencio Sanchez DO Work Phone: 1(516)[address]68 [address]08-14-2025 10:31-0400 Systolic blood tjisbpuf359 mm[Hg]Juvencio Sanchez DO Work Phone: 1(999)[address] [place], [place] 352[address]05-20-2025 09:23-0400 Body nqirtj553.42 cmDasingh Sanchez DO Work Phone: 1(416)[address]05-20-2025 09:23-0400 Body mass index (BMI) [Ratio]33.2 kg/a8Lnecysingh Sanchez DO Work Phone: 1(473)[address]05-20-2025 09:23-0400 Body corjqtvpihd92 [degF]Juvenico Sanchez DO Work Phone: 1(649)[address]05-20-2025 09:23-0400 Body .3 kgDasingh Sanchez DO Work Phone: 1(196)[address]05-20-2025 09:23-0400 Diastolic blood bmdkdylq33 mm[Hg]Juvencio Sanchez DO Work Phone: 1(622)[address]05-20-2025 09:23-0400 Heart rate65 /minDshavonne Sanchez DO Work Phone: 1(064)[address] [place], [place] 352[address]05-20-2025 09:23-0400 SaO2% (BldA) [Mass fraction]96 %Juvencio Sanchez DO Work Phone: 1(573)[address] [place], [place] 352[address]05-20-2025 09:23-0400 Systolic blood kgfaitbi981 mm[Hg]Juvencio Sanchez DO Work Phone: 1([phone])[address]05-19-2025 09:02-0400 Body voscbf448.42 cmDasingh Sanchez DO Work Phone: 1(392)[address] [place], [place] 352[address]05-19-2025 09:02-0400 Body mass index (BMI) [Ratio]33.1 kg/s9Obbhcsingh Sanchez DO Work Phone: 1(878)[address]05-19-2025 09:02-0400 Body ziiwcqjmftp15.6 [degF]Juvencio Sanchez DO Work Phone: 1(641)[address]05-19-2025 09:02-0400 Body araene523.02 kgDasingh Sanchez DO Work Phone: 1(401)[address]05-19-2025 09:02-0400 Diastolic blood vznbkigh90 mm[Hg]Juvencio Sanchez DO Work Phone: 1(572)[address]05-19-2025 09:02-0400 Heart rate49 /Burton Sanchez DO Work Phone: 1(193)345[address]05-19-2025 09:02-0400 Respiratory rate18 /minDriccardod Fernandavin DO Work Phone: 1(023)83268 [address]05-19-2025 09:02-0400 SaO2% (BldA) [Mass fraction]99 %Juvencio Sanchez DO Work Phone: 1(907)06368 [address]05-19-2025 09:02-0400 Systolic blood qcxkhxlo446 mm[Hg]Juvencio Sanchez DO Work Phone: 1(407)32968 [address]05-13-2025 19:15-0400 Diastolic blood mm[Hg]Juvencio Sanchez DO Work Phone: 1(881)[address] [place], [place] 3521405-13-2025 19:15-0400 Heart rate78 /Reddyd Fernandavin DO Work Phone: 1(096)[address] [place], [place] 3521405-13-2025 19:15-0400 Respiratory rate18 /Burton Sanchez DO Work Phone: 1(512)[address] [place], [place] 3521405-13-2025 19:15-0400 SaO2% (BldA) [Mass fraction]96 %Juvencio Sanchez DO Work Phone: 1(159)[address] [place], [place] 3521405-13-2025 19:15-0400 Systolic blood tuqjfijp884 mm[Hg]Juvencio Sanchez DO Work Phone: 1(497)98[address]05-13-2025 14:57-0400 Body khutfs693.42 cmDasingh Sanchez DO Work Phone: 1(802)94168 [address]05-13-2025 14:57-0400 Body piznjg281.2 kgDasingh Sanchez DO Work Phone: 1(299)96268 [address]05-13-2025 14:56-0400 Body viglqdnpkpy87.7 [degF]Juvencio Sanchez DO Work Phone: 1(654)11168 [address]04-14-2025 14:08-0400 Body ajzrta838.42 cmDasingh Sanchez DO Work Phone: [facility]04-14-2025 14:08-0400 Body mass index (BMI) [Ratio]33.9 kg/f1Oxjsqsingh Sanchez DO Work Phone: [phone])[phone]04-14-2025 14:08-0400 Body aezwwx421.57 kgDasingh Sanchez DO Work Phone: [phone]04-14-2025 14:08-0400 Diastolic blood lahxdwla67 mm[Hg]Juvencio Sanchez DO Work Phone: 1(540)054-11[facility]04-14-2025 14:08-0400 Heart rate68 /Burton Sanchez DO Work Phone: 1(285)680-20[facility]04-14-2025 14:08-0400 Respiratory rate18 /Burton Sanchez DO Work Phone: 1(157)240[facility]52[facility]04-14-2025 14:08-0400 SaO2% (BldA) [Mass fraction]98 %Juvencio Sanchez DO Work Phone: 1([phone])961-70[facility]04-14-2025 14:08-0400 Systolic blood mm[Hg]Juvencio Sanchez DO Work Phone: [phone]02-19-2025 07:50-0500 Blood Pressure LocationPatrick TORRES [facility]02-19-2025 07:50-0500Diastolic blood pohiomtr56 mm[Hg]Akbar Placed [facility]02-19-2025 07:50-0500Heart rate72 /minPafelicianok TORRES [facility]02-19-2025 07:50-0500Systolic blood ijkilnjt429 mm[Hg]Akbar TORRES [facility]02-06-2025 13:51-0500Body caoyyi358.42 cmDalidiadexter Michaelvin DO Work Phone: 1(382)[address] [place], [place] 3521402-06-2025 13:51-0500 Body mass index (BMI) [Ratio]34 kg/u9Mlina Girvin DO Work Phone: 1(066)[address] [place], [place] 3521402-06-2025 13:51-0500 Body zqojiy767.02 kgDalidiadexter Michaelvin DO Work Phone: 1(716)[address] [place], [place] 3521402-06-2025 13:51-0500 Diastolic blood euxtacwp51 mm[Hg]Juvencio Sanchez DO Work Phone: 1(646)[address] [place], [place] 3521402-06-2025 13:51-0500 Heart rate60 /minDshavonne Michaelvin DO Work Phone: 1(470)[address] [place], [place] 3521402-06-2025 13:51-0500 Respiratory rate18 /minDshavonne Michaelvin DO Work Phone: 1(108)[address] [place], [place] 3521402-06-2025 13:51-0500 SaO2% (BldA) [Mass fraction]99 %Juvencio Sanchez DO Work Phone: 1(339)[address] [place], [place] 3521402-06-2025 13:51-0500 Systolic blood vnycwmhj618 mm[Hg]Juvencio Sanchez DO Work Phone: 1(475)[address] [place], [place] 3521401-21-2025 10:19-0500 Diastolic blood qcrzylxm50 mm[Hg]Juvencio Sanchez DO Work Phone: 1(700)[address] [place], [place] 3521401-21-2025 10:19-0500 Heart rate55 /minDavid Girvin DO Work Phone: 1(214)[address] [place], [place] 3521401-21-2025 10:19-0500 Respiratory rate16 /minDavid Girvin DO Work Phone: 1(999)[address] [place], [place] 3521401-21-2025 10:19-0500 SaO2% (BldA) [Mass fraction]99 %Juvencio Sanchez DO Work Phone: 1(680)[address] [place], [place] 3521401-21-2025 10:19-0500 Systolic blood hhebiris144 mm[Hg]Juvencio Sanchez DO Work Phone: 1(178)[address] [place], [place] 3521401-21-2025 09:35-0500 Body poasbb155.42 cmDavidexter Michaelblair DO Work Phone: [phone])[address] [place], [place] 3521401-21-2025 09:35-0500 Body hndope272.66 kgDavidexter Michaelvin DO Work Phone: [phone])[address] [place], [place] 3521412-26-2024 15:13-0500 Body .88 cmDavidexter Michaelvin DO Work Phone: 1(350)[address] [place], [place] 3521412-26-2024 15:13-0500 Body mass index (BMI) [Ratio]34.7 kg/l0Entclsingh Sanchez DO Work Phone: 1(745)[address] [place], [place] 3521412-26-2024 15:13-0500 Body hmumfgmitpl37.7 [degF]Juvencio Sanchez DO Work Phone: 1(901)[address] [place], [place] 3521412-26-2024 15:13-0500 Body psrfpe693.11 kgDavidexter Michaelblair DO Work Phone: 1(746)[address] [place], [place] 3521412-26-2024 15:13-0500 Diastolic blood uxntapvj29 mm[Hg]Juvencio Sanchez DO Work Phone: 1(949)[address] [place], [place] 3521412-26-2024 15:13-0500 Heart rate60 /Burton Sanchez DO Work Phone: 1(306)[address] [place], [place] 3521412-26-2024 15:13-0500 Respiratory rate18 /minDshavonne Sanchez DO Work Phone: 1(460)[address] [place], [place] 3521412-26-2024 15:13-0500 SaO2% (BldA) [Mass fraction]99 %Juvencio Sanchez DO Work Phone: 1(871)[address] [place], [place] 3521412-26-2024 15:13-0500 Systolic blood fatvqfiq207 mm[Hg]Juvencio Sanchez DO Work Phone: 1(169)[address] [place], [place] 3521412-09-2024 13:10-0500 Body ixvuqx682.88 cmDasingh Sanchez DO Work Phone: 1(954)[address] [place], [place] 3521412-09-2024 13:10-0500 Body knzgclaqxfp21.5 [degF]Juvencio Sanchez DO Work Phone: 1(640)[address] [place], [place] 3521412-09-2024 13:10-0500 Body .66 kgDasingh Sanchez DO Work Phone: 1(029)[address] [place], [place] 3521412-09-2024 13:10-0500 Diastolic blood dgjgtubz22 mm[Hg]Juvencio Sanchez DO Work Phone: 1(443)[address] [place], [place] 3521412-09-2024 13:10-0500 Heart rate76 /Burton Sanchez DO Work Phone: 1(986)[address] [place], [place] 3521412-09-2024 13:10-0500 Respiratory rate16 /Burton Sanchez DO Work Phone: 1(808)[address] [place], [place] 3521412-09-2024 13:10-0500 SaO2% (BldA) [Mass fraction]97 %Juvencio Sanchez DO Work Phone: 1(562)[address] [place], [place] 3521412-09-2024 13:10-0500 Systolic blood ygtkjchr706 mm[Hg]Juvencio Sanchez DO Work Phone: 1(799)[address] [place], [place] 3521411-26-2024 10:47-0500 Body yrodky560.42 cmDasingh Sanchez DO Work Phone: 1(813)[address] [place], [place] 3521411-26-2024 10:47-0500 Body mass index (BMI) [Ratio]33.6 kg/m7Edbqxsingh Sanchez DO Work Phone: 1(160)[address] [place], [place] 3521411-26-2024 10:47-0500 Body zhijogfcnup29.7 [degF]Juvencio Sanchez DO Work Phone: 1(102)[address] [place], [place] 3521411-26-2024 10:47-0500 Body teivfp106.66 kgDasingh Sanchez DO Work Phone: 1(936)[address]11-26-2024 10:47-0500 Diastolic blood cdlairig87 mm[Hg]Juvencio Sanchez DO Work Phone: 1(077)75668 [address]11-26-2024 10:47-0500 Heart rate54 /Jayjayshavonne Sanchez DO Work Phone: 1(940)64768 [address]11-26-2024 10:47-0500 SaO2% (BldA) [Mass fraction]100 %Juvencio Sanchez DO Work Phone: 1(558)817-[address] [place], [place] 5907111-26-2024 10:47-0500 Systolic blood yuxwbohn058 mm[Hg]Juvencio Sanchez DO Work Phone: 1(051)57468 [address]11-14-2024 10:02-0500 Body mlqbof149.69 cmDasingh Sanchez DO Work Phone: 1(396)027[address]11-14-2024 10:02-0500 Body mass index (BMI) [Ratio]34 kg/e7Qejoh Girblair DO Work Phone: 1(938)[address] [place], [place] 3521411-14-2024 10:02-0500 Body rupgcewuenz48.4 [degF]Juvencio Sanchez DO Work Phone: 1(548)20268 [address]11-14-2024 10:02-0500 Body yawzkd427.84 kgDasingh Michaelblair DO Work Phone: 1(382)187[address]11-14-2024 10:02-0500 Diastolic blood ixcwwehn38 mm[Hg]Juvencio Sanchez DO Work Phone: 1(877)[address]11-14-2024 10:02-0500 Heart rate61 /Burton Sanchez DO Work Phone: 1(166)48268 [address]11-14-2024 10:02-0500 Respiratory rate18 /Burton Sanchez DO Work Phone: 1(897)096-[address] [place], [place] 5907111-14-2024 10:02-0500 SaO2% (BldA) [Mass fraction]96 %Juvencio Sanchez DO Work Phone: 1(985)542-14[facility]11-14-2024 10:02-0500 Systolic blood mm[Hg]Juvencio Sanchez DO Work Phone: 1(075)515[facility]11[facility]11-11-2024 08:58-0500 Body zbdiuo372.84 kgDasingh Sanchez DO Work Phone: 1(581)762-[address] [place], [place] 5907111-11-2024 08:58-0500 Diastolic blood mm[Hg]Juvencio Sanchez DO Work Phone: 1(000)273-[address] [place], [place] 5907111-11-2024 08:58-0500 Heart rate70 /Burton Sanchez DO Work Phone: 1(973)[address]11-11-2024 08:58-0500 Respiratory rate12 /Burton Sanchez DO Work Phone: 1(408)[address]11-11-2024 08:58-0500 Systolic blood uzyoezev773 mm[Hg]Juvencio Sanchez DO Work Phone: 1(473)059-[address] [place], [place] 5907111-04-2024 10:14-0500 Body qwydvqyngku83.62 [degF]Rose Orzech [facility] [place] 161861-04-2024 10:14-0500Diastolic blood spusldnp40 mm[Hg]Rose Orzech [facility] [place] 161861-04-2024 10:14-0500Heart rate56 /minAurora Orzech [facility] 161861-04-2024 10:14-0500Respiratory rate16 /minAurora Orzech [facility] [place] 161861-04-2024 10:14-0500Systolic blood fvcyduzz290 mm[Hg]Rose Orzech [facility] [place] 161860-21-2024 09:47-0400Blood Pressure LocationAurora Orzech [facility]-21-2024 09:47-0400Diastolic blood dnccmyjd14 mm[Hg]Rose Orzech [facility]10-21-2024 09:47-0400Heart rate64 /minAurora Orzech [facility] [place] 161860-21-2024 09:47-0400Respiratory rate16 /minAurora Orzech [facility]10-21-2024 09:47-0400Systolic blood jbnenzii273 mm[Hg]Rose Orzech [facility] [place] 161860-15-2024 13:18-0400Body shnaqx975.69 cmDO Juvencio Sanchez Work Phone: 1(842)98368 [address]10-15-2024 13:18-0400 Body mass index (BMI) [Ratio]33.4 kg/m2DO Juvencio Sanchez Work Phone: 1(437)39068 [address]10-15-2024 13:18-0400 Body keyyug528.57 kgDO Juvencio Sanchez Work Phone: 1(909)756-[address] [place], [place] 5907110-15-2024 13:18-0400 Diastolic blood vzvblhvo16 mm[Hg]DO Juvencio Sanchez Work Phone: 1(023)135-[address] [place], [place] 5907110-15-2024 13:18-0400 Heart rate64 /Isiah Sanchez Work Phone: 1(474)202-[address] [place], [place] 5907110-15-2024 13:18-0400 Respiratory rate18 /Isiah Sanchez Work Phone: 1(453)022-45[facility]10-15-2024 13:18-0400 SaO2% (BldA) [Mass fraction]98 %DO Juvencio Sanchez Work Phone: 1(144)731-69[facility]10-15-2024 13:18-0400 Systolic blood sylzngex167 mm[Hg]DO Juvencio Sanchez Work Phone: 1(881)297-16[facility]10-14-2024 09:34-0400 Blood Pressure LocationAurora Orzech [facility] [place] 161860-14-2024 09:34-0400Diastolic blood qedgbaos40 mm[Hg]Rose Orzech [facility] [place] 161860-14-2024 09:34-0400Heart rate63 /minAurora Orzech [facility] [place] 161860-14-2024 09:34-0400Respiratory rate16 /minAurora Orzech [facility] [place] 161860-14-2024 09:34-0400Systolic blood mm[Hg]Rose Orzech [facility]07-22-2024 15:53-0400Diastolic blood ecysehha70 mm[Hg]DO Juvencio Sanchez Work Phone: 1(323)792-23[facility]07-22-2024 15:53-0400 Systolic blood knnkutnz276 mm[Hg]DO Juvencio Sanchez Work Phone: 1(919)358-[address] [place], [place] 5907107-22-2024 15:14-0400 Body .42 cmDO Juvencio Sanchez Work Phone: 1(845)750-[address] [place], [place] 5907107-22-2024 15:14-0400 Body mass index (BMI) [Ratio]32.7 kg/m2DO Juvencio Sanchez Work Phone: 1(866)056-67[facility]07-22-2024 15:14-0400 Body jfunyy169.49 kgDO Juvencio Sanchez Work Phone: 1(187)269[address]07-22-2024 15:14-0400 Heart rate54 /JayjayMedina Michaelblair Work Phone: 1(103)79968 [address]07-22-2024 15:14-0400 Respiratory rate18 /JayjayMedina Michaelblair Work Phone: 1(772)04968 [address]07-22-2024 15:14-0400 SaO2% (BldA) [Mass fraction]99 %DO Juvencio Sanchez Work Phone: 1(331)[address] [place], [place] 3521406-20-2024 09:32-0400 Body vtjyru009.42 cmDO Juvencio Michaelblair Work Phone: 1(068)[address] [place], [place] 3521406-20-2024 09:32-0400 Body mass index (BMI) [Ratio]33 kg/m2DO Juvencio Michaelblair Work Phone: 1(998)[address] [place], [place] 3521406-20-2024 09:32-0400 Body xmuuejhndly09 [degF]DO Juvencio Daniel Work Phone: 1(052)[address] [place], [place] 3521406-20-2024 09:32-0400 Body zvuinw277.39 kgDO Juvencio Daniel Work Phone: 1(565)[address] [place], [place] 3521406-20-2024 09:32-0400 Diastolic blood irtnmeic47 mm[Hg]DO Juvencio Michaelblair Work Phone: 1(927)[address]68 [address]06-20-2024 09:32-0400 Heart rate51 /JayjayMedina Michaelblair Work Phone: 1(917)33468 [address]06-20-2024 09:32-0400 Respiratory rate18 /Isiah Michaelblair Work Phone: 1(003)[address] [place], [place] 3521406-20-2024 09:32-0400 SaO2% (BldA) [Mass fraction]99 %DO Juvencio Michaelblair Work Phone: 1(229)39668 [address]06-20-2024 09:32-0400 Systolic blood uieaxrqz503 mm[Hg]DO Juvencio Michaelblair Work Phone: 1(840)[address]05-24-2024 12:10-0400 Body wxtzrgtaild70.5 [degF]DO Juvencio Michaelblair Work Phone: 1(281)[address] [place], [place] 3521405-24-2024 12:10-0400 Diastolic blood mm[Hg]DO Juvencio Michaelblair Work Phone: 1(028)[address] [place], [place] 3521405-24-2024 12:10-0400 Heart fdst910 /Isiah Juvencio Michaelblair Work Phone: 1(368)[address] [place], [place] 3521405-24-2024 12:10-0400 Respiratory rate18 /Isiah Juvencio Sanchez Work Phone: 1(928)[address] [place], [place] 3521405-24-2024 12:10-0400 SaO2% (BldA) [Mass fraction]99 %DO Juvencio Michaelblair Work Phone: 1(602)[address] [place], [place] 3521405-24-2024 12:10-0400 Systolic blood bwkafkpi048 mm[Hg]DO Juvencio Michaelblair Work Phone: 1(040)[address] [place], [place] 3521405-24-2024 05:53-0400 Body paiuci439 kgDO Juvencio Michaelblair Work Phone: 1(541)[address] [place], [place] 3521405-23-2024 16:33-0400 Body zxhlih504.42 cmDO Juvencio Michaelblair Work Phone: 1(755)[address] [place], [place] 3521405-23-2024 16:33-0400 Body mass index (BMI) [Ratio]33.3 kg/m2DO Juvencio Michaelblair Work Phone: 1(831)[address] [place], [place] 3521405-23-2024 15:00-0400 Inhaled oxygen flow rate2 L/JayjayMedina Sanchez Work Phone: 1(232)[address] [place], [place] 3521405-21-2024 12:35-0400 Heart sndm488 /JayjayMedina Sanchez Work Phone: 1(921)[address] [place], [place] 3521405-21-2024 12:33-0400 Diastolic blood kcucszue08 mm[Hg]DO Juvencio Sanchez Work Phone: [facility]05-21-2024 12:33-0400 Respiratory rate22 /minDO Juvencio Sanchez Work Phone: [facility]05-21-2024 12:33-0400 SaO2% (BldA) [Mass fraction]100 %DO Juvencio Sanchez Work Phone: [facility]05-21-2024 12:33-0400 Systolic blood osxpbpfc587 mm[Hg]DO Juvencio Sanchez Work Phone: 1(432)073[facility]60[facility]05-21-2024 11:06-0400 Body .42 cmDO Juvencio Sanchez Work Phone: 1(077)396[facility]24[facility]05-21-2024 11:06-0400 Body pcycgrcnexi14.5 [degF]DO Juvencio Sanchez Work Phone: 1(675)283-71[facility]05-21-2024 11:06-0400 Body zhspov621.1 kgDO Juvencio Sanchez Work Phone: [facility]05-21-2024 09:13-0400 Body zwstfy621.69 cm[facility]05-21-2024 09:13-0400Body mass index (BMI) [Ratio]34 kg/z3QykfyafuiProvidence Hospital05-21-2024 09:13-0400Body pthnehbtutz09.4 [degF][facility]05-21-2024 09:13-0400Body .84 kg[facility]05-21-2024 09:13-0400Diastolic blood ysnzmaxa21 mm[Hg][facility] 06-27-2023 09:13-5093BcZ6% (BldA) [Mass fraction]99 %[facility]05-21-2024 09:13-0400Systolic blood mm[Hg][facility]03-13-2024 10:41-0400Body omwsvk675.69 cm[facility]03-13-2024 10:41-0400Body mass index (BMI) [Ratio]33.7 kg/m2 [facility]03-13-2024 10:41-0400Body iwbhvnantrn28.2 [degF][facility]03-13-2024 10:41-0400Body .48 kg [facility]03-13-2024 10:41-0400Diastolic blood aswfajqb42 mm[Hg][facility]03-13-2024 10:41-0400Heart rate76 /min [facility]03-13-2024 10:41-0400Respiratory rate18 /min [facility]03-13-2024 10:41-3471DoK6% (BldA) [Mass fraction]98 %[facility]03-13-2024 10:41-0400Systolic blood ihtntjvu580 mm[Hg][facility]02-07-2024 07:41-0500 Diastolic blood mm[Hg]Akbar TORRES [facility]02-07-2024 07:41-0500Heart rate75 /minPatricdimas TORRES [facility]02-07-2024 07:41-0500Systolic blood kfeitezw046 mm[Hg]Akbar TORRES [facility] [place] 161861-16-2023 15:20-0500Body rtvavl805.69 cmAbdul Marino Other [employer] Other 11-16-2023 15:20-0500Body mass index (BMI) [Ratio] 33.18 kg/z1Alorp Marino Other [employer] Other 11-16-2023 15:20-0500Body xpovlzncpuq20.6 [degF]Mireya Marino Other [employer] Other 11-16-2023 15:20-0500Body .67 kgAbdul Marino Other [employer] Other 11-16-2023 15:20-0500Diastolic blood guroblwg13 mm[Hg] Mireya Marino Other [employer] Other 11-16-2023 15:20-0500Respiratory rate18 /minAbdul Marino Other [employer] Other 11-16-2023 15:20-9778RcX6% (BldA) [Mass fraction]99 % Mireya Marino Other [employer] Other 11-16-2023 15:20-0500Systolic blood izrvzeoz490 mm[Hg] Mireya Marino Other [employer] Other 11-14-2023 09:30-0500Body gdmoav700.69 cmJuvencio Sanchez Other [employer] Other 11-14-2023 09:30-0500Body mass index (BMI) [Ratio] 33.44 kg/e9Zhthesingh Sanchez Other [employer] Other 11-14-2023 09:30-0500Body bstsjmsjfej31.8 [degF]Juvencio Sanchez Other [employer] Other 11-14-2023 09:30-0500Body pylcqr611.58 kgDasingh Sanchez Other [employer] Other 11-14-2023 09:30-0500Diastolic blood elsipzly34 mm[Hg] Juvencio Sanchez Other [employer] Other 11-14-2023 09:30-0500Respiratory rate18 /Burton Sanchez Other [place] [employer] Other 11-14-2023 09:30-3351ZiX4% (BldA) [Mass fraction]99 % Juvencio Sanchez Other [place] [employer] Other 11-14-2023 09:30-0500Systolic blood lehktzlm814 mm[Hg] Juvencio Sanchez Other [facility] [employer] Other 08-30-2023 09:19-0400Blood Pressure LocationJENNIFER OSLE [facility]08-30-2023 09:19-0400Diastolic blood ldmuxkyf86 mm[Hg]DUSTY SOLE [facility]08-30-2023 09:19-0400Heart rate79 /minJENNIFER SOLE [facility]08-30-2023 09:19-0400Respiratory rate16 /minJENNIFER SOLE [facility]08-30-2023 09:19-0400Systolic blood zyckyqpd740 mm[Hg]DUSTY SOLE [facility] [place] [address]-16-2023 09:42-0400Blood Pressure LocationJENNIFER SOLE [facility] [place] [address]-16-2023 09:42-0400Diastolic blood tsewclrn71 mm[Hg]DUSTY SOLE [facility]08-16-2023 09:42-0400Heart rate78 /minJEAMY WHIPPLE [facility]08-16-2023 09:42-0400Systolic blood exmqkkgg224 mm[Hg]DUSTY WHIPPLE [facility]08-11-2023 16:10-0400Body gbxvfi897.69 Randall Bell Other [employer] Other 08-11-2023 16:10-0400Body mass index (BMI) [Ratio] 33.83 kg/f5IpfbapAddis Bell Other [employer] Other 08-11-2023 16:10-0400Body ydxqja091.94 kgAddis Bell Other [employer] Other 08-11-2023 16:10-0400Diastolic blood lgtzxxux58 mm[Hg] Addis Bell Other [employer] Other 08-11-2023 16:10-0400Respiratory rate18 /Tonia Bell Other [employer] Other 08-11-2023 16:10-5871HaP5% (BldA) [Mass fraction]96 % Addis Bell Other [employer] Other 08-11-2023 16:10-0400Systolic blood noauzgvk586 mm[Hg] Addis Bell Other [employer] Other 08-02-2023 07:22-0400Blood Pressure LocationPatrick TORRES [facility]08-02-2023 07:22-0400Diastolic blood qkvrrgyn39 mm[Hg]Akbar TORRES [facility]08-02-2023 07:22-0400Heart rate75 /minPatrick TORRES [facility]08-02-2023 07:22-0400Respiratory rate16 /minPatrick TORRES [facility]08-02-2023 07:22-0400Systolic blood gwbospwh416 mm[Hg]Akbar TORRES [facility]06-29-2023 11:26-0400Body .67 Nirav Foster MD Work Phone: [facility] [id number] 07:32-0500Blood Pressure LocationPatrick TORRES [facility]02-01-2023 07:32-0500Diastolic blood cdbryuuv06 mm[Hg]Akbar TORRES [facility]02-01-2023 07:32-0500Heart rate72 /minPatrick TORRES [facility]02-01-2023 07:32-0500Respiratory rate16 /minPatrick TORRES [facility]02-01-2023 07:32-0500Systolic blood wpdcsbje167 mm[Hg]Akbar [facility]ORRES [facility]12-07-2022 10:00-0500Body .69 cmAbdul Marino Other [employer] Other [id number] 10:00-0500Body mass index (BMI) [Ratio] 33.34 kg/p5Zoeee Marino Other [employer] Other 12-07-2022 10:00-0500Body kawkguoxaqc32.8 [degF]Mireya Marino Other [employer] Other [id number] 10:00-0500Body nepfct586.21 kgAbdul Marino Other [employer] Other 12-07-2022 10:00-0500Diastolic blood wyskokpf60 mm[Hg] Mireya Marino Other [employer] Other 12-07-2022 10:00-0500Respiratory rate18 /minAbdul Marino Other [employer] Other 12-07-2022 10:00-3695JfR7% (BldA) [Mass fraction]99 % Mireya Marino Other [employer] Other 12-07-2022 10:00-0500Systolic blood vdxgxqos690 mm[Hg] Mireya Marino Other [employer] Other 11-08-2022 09:30-0500Body olvnjp293.69 cmDavid Girvin Other [employer] Other 11-08-2022 09:30-0500Body mass index (BMI) [Ratio] 32.92 kg/a4BdozbJuvencio Sanchez Other [employer] Other 11-08-2022 09:30-0500Body uchhhyijpcq06.2 [degF]Juvencio Sanchez Other [employer] Other 11-08-2022 09:30-0500Body igusvz063.76 kgDasingh Sanchez [facility] 11-08-2022 09:30-0500Diastolic blood sxqpciqf28 mm[Hg] Juvencio Sanchez Other [employer] Other 11-08-2022 09:30-0500Respiratory rate18 /minDshavonne Sanchez Other [employer] Other 11-08-2022 09:30-2734MgW2% (BldA) [Mass fraction]99 % Juvencio Sanchez Other [employer] Other 11-08-2022 09:30-0500Systolic blood twdudeek582 mm[Hg] Juvencio Sanchez Other [employer] Other 11-02-2022 07:31-0400Blood Pressure LocationPatrick Placed [facility]2022 07:31-0400Diastolic blood iurjgrfr50 mm[Hg]Akbar TORRES [facility]-02-2022 07:31-0400Heart rate60 /minPatrick TORRES [facility]-02-2022 07:31-0400Respiratory rate16 /minPatrick MELISSA [facility] [facility] 07:31-0400Systolic blood crzyyvhb755 mm[Hg]Akbar TORRES [facility] 12:35-0400Body .69 cmSsuzanne Figueroa Other [employer] Other 10-17-2022 12:35-0400Body mass index (BMI) [Ratio] 33.18 kg/c2Krnksmmsnsandy Figueroa Other [employer] Other 10-17-2022 12:35-0400Body rflvyvhvhzx77.5 [degF] Jodie Figueroa Other [employer] Other 10-17-2022 12:35-0400Body .67 kgStsandy Figueroa Other [employer] Other 10-17-2022 12:35-0400Diastolic blood sxesiaza78 mm[Hg] Jodie Figueroa Other [employer] Other 10-17-2022 12:35-0400Respiratory rate18 /minSsuzanne Figueroa Other [employer] Other 10-17-2022 12:35-6397LlQ4% (BldA) [Mass fraction]99 % Jodie Figueroa Other [employer] Other 10-17-2022 12:35-0400Systolic blood wrtuqugt088 mm[Hg] Jodie Figueroa Other [place] [employer] Other [id number] 10:40-0400Blood Pressure LocationLannette ClemonsExecutive Urology of [facility]09-14-2022 10:40-0400Diastolic blood inxszgrb09 mm[Hg]Lannette ClemonsExec[facility] of [facility]09-14-2022 10:40-0400Heart rate70 /min Lannette ClemonsExecutive [facility]rology of [facility] 10-20-2021 10:40-0400Respiratory rate16 /minLannette ClemonsExecutive [facility]rology of [facility]09-14-2022 10:40-0400Systolic blood mm[Hg]Lannette ClemonsExecutive [facility]rology of [facility]08-31-2022 12:19-0400Blood Pressure LocationPatrick TORRES [facility]08-31-2022 12:19-0400Diastolic blood vrqkfkno92 mm[Hg]Akbar TORRES [facility]08-31-2022 12:19-0400Heart rate78 /minPatrick TORRES [facility]08-31-2022 12:19-0400Respiratory rate16 /minPatrick TORRES [facility]08-31-2022 12:19-0400Systolic blood uadeeame217 mm[Hg]Akbar TORRES [facility]2022 07:55-0400Blood Pressure LocationPatrick TORRES [facility] 2022 07:55-0400Diastolic blood qekscjlw255 mm[Hg] Akbar Placed [facility] [place] 2022 07:55-0400Heart rate85 /minPatrick Placed [facility] [place] 2022 07:55-0400Respiratory rate20 /minPatrick Placed [facility] [place] 2022 07:55-0400Systolic blood dtpwphse131 mm[Hg] Akbar Placed [facility] [place] 05-04-2022 07:42-0400Blood Pressure LocationPatrick Placed [facility] [place] 05-04-2022 07:42-0400Diastolic blood tazvmdci55 mm[Hg] Akbar Placed [facility] [place] 05-04-2022 07:42-0400Heart rate68 /minPatrick Placed [facility] [place] 05-04-2022 07:42-0400Systolic blood razyqexz915 mm[Hg] Akbar Placed [facility] [place] 05-03-2022 09:30-0400Body mlvopt931.69 cmDasingh Sanchez Other [employer] Other 05-03-2022 09:30-0400Body mass index (BMI) [Ratio] 35.01 kg/w0AjshxJuvencio Sanchez Other [employer] Other 05-03-2022 09:30-0400Body webynalzszj60.2 [degF]Juvencio Sanchez Other [employer] Other 05-03-2022 09:30-0400Body kyqdfm309.02 kgDasingh Sanchez Other [employer] Other 05-03-2022 09:30-0400Diastolic blood xwbuivxm56 mm[Hg] Juvencio Sanchez Other [employer] Other 05-03-2022 09:30-0400Respiratory rate18 /minDshavonne Sanchez Other [employer] Other 05-03-2022 09:30-6012IjI9% (BldA) [Mass fraction]97 % Juvencio Sanchez Other [employer] Other 05-03-2022 09:30-0400Systolic blood padskhvv650 mm[Hg] Juvencio Sanchez Other [employer] Other 02-28-2022 11:05-0500Body vysjah225.69 cmStepdipak Figueroa Other [employer] Other 02-28-2022 11:05-0500Body mass index (BMI) [Ratio] 35.14 kg/a8TkliitqjiJodie Figueroa Other [employer] Other 02-28-2022 11:05-0500Body hilqmdgdszr82.3 [degF] Jodie Rocheault Other [employer] Other 02-28-2022 11:05-0500Body qvihxt565.47 kgStsandy Rocheault Other [employer] Other 02-28-2022 11:05-0500Diastolic blood lszhgqyq42 mm[Hg] Jodie Rocheault Other [employer] Other 02-28-2022 11:05-0500Respiratory rate18 /minSsuzanne Figueroa Other [employer] Other 02-28-2022 11:05-0573CdH8% (BldA) [Mass fraction]99 % Jodie Rocheault Other [employer] Other 02-28-2022 11:05-0500Systolic blood uiwqjyro538 mm[Hg] Jodie Rocheault Other [employer] Other 12-14-2021 10:00-0500Body jxahej980.69 cmAbdul Marino Other [employer] Other 12-14-2021 10:00-0500Body mass index (BMI) [Ratio] 34.61 kg/c6Vafaf Marino Other [employer] Other 12-14-2021 10:00-0500Body ebntjuxriys96 [degF]Mireya Marino Other [employer] Other 12-14-2021 10:00-0500Body euyzjd953.66 kgAbdul Marino Other [employer] Other 12-14-2021 10:00-0500Diastolic blood cccudchc34 mm[Hg] Mireya Marino Other [employer] Other 12-14-2021 10:00-0500Respiratory rate18 /minAbdul Marino Other [employer] Other 12-14-2021 10:00-9496ZoU3% (BldA) [Mass fraction]98 % Mireya Marino Other [employer] Other 12-14-2021 10:00-0500Systolic blood evgxiurs946 mm[Hg] Mireya Marino Other [employer] Other 10-20-2021 09:30-0400Body .69 cmDasingh Sanchez Other [employer] Other 10-20-2021 09:30-0400Body mass index (BMI) [Ratio] 34.88 kg/q7Dbgkrsingh Sanchez Other [employer] Other 10-20-2021 09:30-0400Body owszgstvxik68.7 [degF]Juvencio Sanchez Other [employer] Other 10-20-2021 09:30-0400Body wvmewh593.56 kgDasingh Sanchez Other [employer] Other 10-20-2021 09:30-0400Diastolic blood kojnwnpy82 mm[Hg] Juvencio Sanchez Other [employer] Other 10-20-2021 09:30-0400Respiratory rate18 /Burton Sanchez Other [facility] [employer] Other 10-20-2021 09:30-1550CsN9% (BldA) [Mass fraction]97 % Juvencio Sanchez Other [facility] [employer] Other 10-20-2021 09:30-0400Systolic blood tctycelz368 mm[Hg] Juvencio Sanchez Other [employer] Other Encounters Encounter DateEncounter TypeCare ProviderFacilityStart: 11-26-2024 End: 20-47-4430Sixvkvh encounter procedureMireya Pichardo MD-[facility] Work Phone: Start: 11-26-2024 End: 54-97-5229rvnxzropvvWmaps Girvin DO Work Phone: [facility]Start: 11-25-2024 End: 84-39-6724jfywwsvjxuHevsx Girvin DO Work Phone: -[facility]Start: 11-25-2024 End: 94-78-5610Hunhvat encounter procedureDasingh Sanchez DO-[facility] Work Phone: Start: 11-07-2024 End: 54-87-1265uwjdppabnfMrmar Girvin DO Work Phone: [facility] Work Phone: Start: 11-07-2024 End: 83-20-9529Tfimicq encounter procedureRadha Ames MD-[facility] Cardiology Work Phone: Start: 96-71-2577Rtk-patient / Non-visitEna Lozoya [facility] Family Medicine [place] Work Phone: Start: 10-21-2024 End: 22-98-4382Mixvatzsu department patient visitDavid Daniel DO Work Phone: [phone]-Gbsfmpusp Room Work Phone: Start: 10-17-2024 End: 95-46-1297usejkxxajkGvkhr Girvin DO Work Phone: [facility] Work Phone: Start: 10-17-2024 End: 62-36-2800Mcnitei encounter procedurePatricdain Pineda [facility] Urgent Care [place] Work Phone: Start: 10-02-2024 End: 83-80-4473Howkyl flowsSaundra Juares DPM Work Phone: [facility] [place] PodiatryStart: 10-02-2024 End: 10-45-4313Hrjkxl Nila Juares DPM Work Phone: [facility] [place] PodiatryStart: 10-02-2024 End: 67-62-1619Vyvkygq encounter procedureCacris Juares DPM Work Phone: [facility] [place] PodiatryComment on above:Onychomycosis (Primary Dx); Corns and callosities; Circulating anticoagulant disorder (HHS-HCC); Pain in both feetStart: 10-02-2024 End: 09-58-1386vyvubitcxqJBFEIRVOO H SMITHNot AvailableStart: 10-01-2024 End: 79-69-7706bxoiujytnwEphsqhn R WATERSFacility:FTMCStart: 10-01-2024 End: 62-87-3308mpvwmmzrmqMeenrqw R WATERSFacility:EU [place]kyStart: 10-01-2024 End: 06-89-2257Stepupo encounter procedureAkbar TORRES [facility] Start: 99-86-6612Ymrpatnvdy [facility] Hospitaledxter Yun MD-[facility] Work Phone: Start: 09-19-2024 End: 65-41-7289mzqghassorHgaoc Girvin DO Work Phone: [facility] Work Phone: Start: 09-19-2024 End: 39-79-3053Crdjxwe encounter procedureAltaf Das MDS[facility] Work Phone: Start: 67-57-7897tmqhoegiyfVujbwso R WATERSFacility:EU [place]Start: 09-06-2024 End: 13-34-3544mvolmxjctuZazpbyj R WATERSFacility:EU [place]vueStart: 09-06-2024 End: 00-05-5457Wwjngnj encounter procedurePazaida TORRES [facility] start: 06-25-2024 End: 74-77-6947Xbswmzx encounter procedureDasingh Sanchez DOPaul [facility] Medicine [place] Work Phone: Start: 06-24-2024 End: 05-20-2729Qgovsy flowsSaundra Juares DPM Work Phone: [facility] PODIATRYStart: 06-24-2024 End: 43-69-7279Graybj flowsSaundra Juares DPM Work Phone: [facility] PODIATRYStart: 06-24-2024 End: 82-42-5184Eshjhdv encounter procedureCacris Juares DPM Work Phone: n[facility] SWS PODIATRYComment on above:Onychomycosis (Primary Dx); Corns and callosities; Circulating anticoagulant disorder (CMS/HCC); Pain in both feetStart: 06-24-2024 End: 06-53-3080ogavyqtxtuFWKCCSZNV H SMITHNot AvailableStart: 06-18-2024 End: 65-66-3032Cbuvmhzzi department patient visitDavid Girvin DO Work Phone: [facility]-Emergency Room Work Phone: Start: 06-18-2024 End: 78-87-6625Fpriory encounter procedureDavid Daniel DO Work Phone: [facility]-Lab [place] Work Phone: Start: 06-18-2024 End: 48-55-5294jrjplseqfcTanss Girvin DO Work Phone: [facility] Work Phone: Start: 06-11-2024 End: 11-85-5263klnnisbzuoXdymq Girvin DO Work Phone: [facility] Work Phone: Start: 06-11-2024 End: 06-83-2271Yjpmkok encounter procedureDasingh Sanchez DO Work Phone: [facility] Work Phone: Start: 05-20-2024 End: 28-33-2788aiguqxdokoVfplb Daniel DO Work Phone: [facility] Work Phone: Start: 05-20-2024 End: 86-60-5812Zqjduxi encounter procedureDalidiadexter Michaelblair DO Work Phone: [facility] Work Phone: Start: 03-27-2024 End: 74-76-8768Izz Drop offAkbar TORRES [facility] Start: 03-27-2024 End: 95-48-1210ywfityqkqrFkkrbfv R WATERSFacility:FTMCStart: 03-27-2024 End: 81-51-0534Hfcizij encounter procedureAkbar TORRES [facility] [place] Start: 03-26-2024 End: 03-92-1086Wcddtf Nila Juares DPM Work Phone: [facility] PODIATRYStart: 03-26-2024 End: 89-68-2367Suxqzo Nila Juares DPM Work Phone: [facility] PODIATRYStart: 03-26-2024 End: 92-58-3918atxqhgmoyuXNTHATRPD H SMITHNot AvailableStart: 03-14-2024 End: 87-00-9552xvsugypzxkZvmio Girvin DO Work Phone: [facility] Work Phone: Start: 03-14-2024 End: 33-71-3092Gmvzjtf encounter procedureDasingh Sanchez DO Work Phone: [facility] Ambulatory Work Phone: Start: 03-03-2024 End: 43-44-3477EdiiszWcbao Mariano KWOK Work Phone: OrthopaedicsComment on above:Refill RequestStart: 02-27-2024 End: 67-52-1714Sfccqsope to same day surgery centerDasingh Sanchez DO Work Phone: [facility]-CT Scan [place] Work Phone: Start: 02-27-2024 End: 04-55-5406sgyioqmzqvNnkdq Girvin DO Work Phone: [facility] Work Phone: Start: 83-80-3595Xaraupccht RecurringDasingh Sanchez DO Work Phone: [facility]-Cancer Center Acute Work Phone: Start: 02-01-2024 End: 89-31-4792Hqtuzqv encounter procedureDasingh Sanchez DO Work Phone: [facility] Work Phone: Start: 01-16-2024 End: 11-09-4143ywdemyrrgeYrzcpq E Krebs MD Work Phone: OrthopaedicsStart: 01-16-2024 End: 56-76-0205Lilokcl encounter procedurePaxton Foster MD Work Phone: OrthopaedicsComment on above:Left Knee injuryStart: 01-15-2024 End: 28-21-4832Xkoeuqujj department patient visitDavid Fernandablair DO Work Phone: [facility]-Emergency Room Work Phone: Start: 01-02-2024 End: 65-28-8701Svzdpcd encounter procedureDasingh Daniel DO Work Phone: [facility] V[facility] Surg Work Phone: Start: 12-21-2023 End: 36-92-5725odthottqklPjrch Girblair DO Work Phone: [facility] Work Phone: Start: 12-21-2023 End: 09-39-9103Hujuwzt encounter procedureDavidexter Michaelblair DO Work Phone: [facility] Work Phone: Start: 12-20-2023 End: 85-34-9407Myrqzx flowsheetBandar Juares DPM Work Phone: [facility] PODIATRYStart: 12-20-2023 End: 65-39-3968Uilrmv Nila Juares DPM Work Phone: [facility] PODIATRYStart: 12-20-2023 End: 07-10-7093Htstgla encounter procedureBandar Juares DPM Work Phone: [facility] SWS PODIATRYComment on above:Onychomycosis (Primary Dx); Corns and callosities; Circulating anticoagulant disorder (CMS/HCC); Pain in both feetStart: 12-20-2023 End: 98-45-4997gjsyclcgtsGPEATXWKL H SMITHNot AvailableStart: 12-18-2023 End: 63-57-7539cauasdnyodRntef Girvin DO Work Phone: [facility] Work Phone: Start: 12-18-2023 End: 85-67-9147Yjajnlq encounter procedureDavid Girvin DO Work Phone: [facility] Nephrology [place] Work Phone: Start: 12-15-2023 End: 74-34-9000Oezennh encounter procedureDavid Girvin DO Work Phone: [facility]-Lab [place] Work Phone: Start: 12-15-2023 End: 57-59-6413ueiipzrzhvGybhh Girvin DO Work Phone: [facility] Work Phone: Start: 12-14-2023 End: 90-08-9961mexuydtyisPideu Girvin DO Work Phone: [facility] Work Phone: Start: 12-14-2023 End: 51-41-4797Ssdksxm encounter procedureDavid Girvin DO Work Phone: [facility]-Lab [place] Work Phone: Start: 12-11-2023 End: 11-37-1445lyrpzniqeeQsajxf X OrzechFacility:EU [place]kyStart: 12-11-2023 End: 83-80-2857Dngirqf encounter procedureAurora X Orzech [facility] Start: 11-27-2023 End: 13-42-0557gjeddauhblQhglfm X OrzechFacility:EU [place]Start: 11-27-2023 End: 60-94-2206Qpebsbp encounter procedureAurora X Orzech [facility] Start: 11-21-2023 End: 30-00-0911hjxktpdmdhPG Juvencio Sanchez Work Phone: [facility] Work Phone: Start: 11-21-2023 End: 10-42-7045Xztnovr encounter procedureDO Juvencio Sanchez Work Phone: [facility] Cardiology Work Phone: Start: 11-20-2023 End: 79-29-9690ufhmgiqwdgYfoztx X OrzechFacility:EU [place]kyStart: 11-20-2023 End: 57-68-9050Auydvil encounter procedureAurora X Orzech [facility] Start: 36-61-2159Dlp-patient / Non-visitDO Juvencio Sanchez Work Phone: [facility] Work Phone: Start: 09-19-2023 End: 76-95-7799ygekjnvbjoKW Juvencio Sanchez Work Phone: [facility] Work Phone: Start: 09-19-2023 End: 74-01-8927Sbizpuoy ReferredDO Juvencio Sanchez Work Phone: [facility]-LAB Path Spec [facility] HospStart: 09-14-2023 End: 32-13-1434Myh-admission assessmentPazaida TORRES [facility] Start: 08-28-2023 End: 44-01-1300bhwhzwyrbiQQ Juvencio Sanchez Work Phone: [facility] Work Phone: Start: 08-28-2023 End: 27-49-6051Witezql encounter procedureDO Juvencio Sanchez Work Phone: [facility] Work Phone: Start: 40-96-9482Rbv-patient / Non-visitDO Juvencio Sanchez Work Phone: [facility] Work Phone: Start: 08-24-2023 End: 36-15-3951Rncwthb encounter procedureAkbar TORRES [facility] start: 87-65-9301Zla-patient / Non-visitDO Juvencio Sanchez Work Phone: [facility] Work Phone: Start: 07-31-2023 End: 22-26-9712Ojtplratv to same day surgery centerDO Juvencio Sanchez Work Phone: [facility]-Procedure Outpatient Work Phone: Start: 07-31-2023 End: 53-63-5402gfehnvzbopMP Juvencio Sanchez Work Phone: [facility] Work Phone: Start: 07-27-2023 End: 66-79-6563haqxfyaivfPH Juvencio Sanchez Work Phone: [facility] Work Phone: Start: 07-27-2023 End: 23-30-8612Qepfwsv encounter procedureDO Juvencio Sanchez Work Phone: [facility] [place] Work Phone: Start: 14-86-1809Azv-patient / Non-visitDO Juvencio Sanchez Work Phone: [facility] Cardiology Work Phone: Start: 06-27-2023 End: 59-38-3466Urv-patient / Non-visitDO Juvencio Sanchez Work Phone: [facility] Cardiology Work Phone: Start: 06-27-2023 End: 85-57-7463Fydilpttck and management of inpatientDO Juvencio Sanchez Work Phone: [facility]-[address] [place] [facility] S[facility] Work Phone: Start: 06-27-2023 End: 51-64-3914eceebcsohaSmgcsgohqMercy Health – [facility] Work Phone: Start: 06-27-2023 End: 03-66-2712Rlyzsnm encounter procedureFormerly [facility] Family Medicine [place] Work Phone: Start: 04-19-2023 End: 20-37-5597Oiwwwam encounter procedureFormerly [facility] Medicine [place] Work Phone: Start: 03-21-2023 End: 12-87-3078trcbusejrjOYTPH C GIRVINFacility:[facility] Hospitaltart: 03-21-2023 End: 42-24-5746Apqlhxi encounter Ephraim Woody APRN.CNP Work Phone: Pain ManagementComment on above:Spinal stenosis of lumbar region with neurogenic claudication (Primary Dx); Lumbar spondylosisStart: 03-15-2023 End: 98-33-1007Xnn Drop offAkbar TORRES [facility] Start: 03-15-2023 End: 46-25-6987Zkzsyut encounter Mariaelena TORRES [facility] Start: 03-14-2023 End: 96-17-2035Gmjnfy outpatient new 30 minutesBandar Juares DPM Work Phone: NOG[facility] PODIATRYComment on above:Onychomycosis (Primary Dx); Pain in both feetStart: 01-17-2023 End: 23-38-8891zwdwfujwknJtkiu Girvin Other [employer] Other Start: 78-10-8883Beyjuzser encounterDasingh Paredes [facility] CenterueStart: 12-26-2022 End: 71-29-8065lzioryugiyFgihr Girvin Other [employer] Other Start: 20-72-4032Hoijlmzyp encounterDasingh Paredes Family Medicine BellueStart: 12-22-2022 End: 78-35-2046lrwqbslwykGfrjv Marino Other [employer] Other Start: 59-54-4863Blynns outpatient visit 25 minutes Mireya QadirFPG NephrologyStart: 12-20-2022 End: 16-73-7956cspdotdqgfBptfs Girvin Other [employer] Other Start: 97-81-3879Rnyluq outpatient visit 25 minutes Juvencio Paredes Family Medicine [place]evueStart: 12-13-2022 End: 41-95-9722sedwhwxfgzVRVJT C GIRVINFacility:[facility] Hospitaltart: 12-13-2022 End: 27-54-2856Hmybugr encounter Ephraim Woody APRN.CNP Work Phone: Pain ManagementComment on above:Spinal stenosis of lumbar region with neurogenic claudication (Primary Dx)Start: 12-08-2022 End: 78-93-0051jhcqsjzhzmNK David Girvin Work Phone: [facility] Work Phone: Start: 12-08-2022 End: 16-99-2084Cjnhafu encounter procedureDO Juvencio Sanchez Work Phone: [facility]-Lab [place] Work Phone: Start: 12-07-2022 End: 15-67-3342nxprhumdbgCH David Girvin Work Phone: [facility] Work Phone: Start: 12-07-2022 End: 61-44-5499Vdvmlax encounter procedureDO Juvencio Sanchez Work Phone: [facility]-Lab [place] Work Phone: Start: 36-31-8347udtqimspdbAIMP W DAOUD [facility]: 58-95-2894Dwifmgrht encounterYessy Lo MD Work Phone: [phone] ManagementComment on above:Opened In Error Appointment RescheduledStart: 10-05-2022 End: 99-11-4151Grjzulv encounter procedureDUSTY Mcintyre SOLE [facility] Start: 09-21-2022 End: 07-79-3159Yiqbuvm encounter procedureBENJAMINIFER Miguelina SOLE [facility] Start: 09-16-2022 End: 62-10-4177Rwbewpk encounter procedureDO Juvencio Sanchez Work Phone: [facility]-XRay Urgent Care [place] Work Phone: Start: 09-16-2022 End: 24-99-1187kqfdcbmiawPO David Girvin Work Phone: [place] [employer] Other start: 67-15-6570Emzhat outpatient visit 15 minutes [facility] ClydeStart: 44-85-8491Xvxbztgdz encounterDasingh Paredes Urgent Care [place]deStart: 09-14-2022 End: 80-35-6702xqcqagpnwzGONK HANZELFacility:[facility] Hospitaltart: 05-08-2259A-mail encounter from caregiverCcf ProviderCOLUMBIA ROADStart: 41-45-6388Hqyuyhb encounter procedureCcf ProviderPain ManagementComment on above:regarding appointment with Pain Mgmt Dr. Yessy vIorydStart: 09-07-2022 End: 84-11-6807Vzwskrk encounter procedureAkbar TORRES 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); History of total knee replacement, leftStart: 07-05-2022 End: 15-70-2791tdkqvztojwYkvnr Girvin Other [employer] Other Start: 08-91-4002Unjzmxtmx encounterDasingh Paredes Family Medicine Mehnaztart: 06-10-2022 End: 04-06-4119elxyzjkyiuPT David Girvin Work Phone: [facility] Work Phone: Start: 06-10-2022 End: 31-76-4227Rwmqegz encounter procedure Juvencio Fernandablair Work Phone: [facility]-Lab [facility] Work Phone: Start: 06-08-2022 End: 86-71-0893mlvcneyfdpTR Juvencio Sanchez Work Phone: [facility] Work Phone: Start: 06-08-2022 End: 65-83-8818Xmkfjig encounter procedureDO Juvencio Sanchez Work Phone: [facility]-Lab [facility] Work Phone: Start: 05-23-2022 End: 52-88-0471oyphxsqexqSzkmp Girvin Other [employer] Other Start: 51-87-0851Hzswjuguv encounterDavid DanielSOUTHE[facility] Family Medicine [place]Start: 05-02-2022 End: 85-16-3653uqpomsmjfuZgbyc Girvin Other [employer] Other Start: 19-58-1811Hfyxioxhd encounterDavid DanielSOUT[facility] Family Medicine [place]Start: 03-09-2022 End: 16-56-8269Jgiweir encounter procedureAkbar TORRES [facility] Start: 94-72-5397RjwfjdNoxhk Bilski PA-C Work Phone: OrthopaedicsComment on above:Refill RequestStart: 01-12-2022 End: 83-96-5359xcydcarkiiJfetp Marino Other [facility] [employer] Other Start: 95-17-7736Vqgrxg outpatient visit 15 minutes Mireya QadirFPG Nephrology Clinic [place]arksvilleStart: 36-63-5296Hbrepybsx encounterDasingh Paredes [facility] Hospitaltart: 12-29-2021 End: 42-04-4136kpbmnlpswaRQ David Girvin Work Phone: nosaint [facility]'s [facility] [employer] Other Start: 12-29-2021 End: 66-21-1149Gxlfrdt encounter procedureDO Juvencio Sanchez Work Phone: [facility] Main CampusStart: 12-14-2021 End: 88-31-5110nslyalyvwfVxqgm Girvin Other [facility] [employer] Other Start: 24-77-2955Pjfsfe outpatient visit 25 minutes [facility] 12-09-2021 End: 51-59-5628tdwgzsinyiZK David Girvin Work Phone: [facility] Work Phone: Start: 12-09-2021 End: 21-58-5327Zrkvdqc encounter procedureDO Juvencio Sanchez Work Phone: [facility]Start: 12-08-2021 End: 90-34-8668Zmnljfs encounter procedurePazaida TORRES [facility] Start: 12-07-2021 End: 99-80-0971vusgfefbmqHebqp Keller Other [facility] [employer] Other Start: 86-17-1211Udblpl outpatient visit 15 minutes Brandy StovallFPMike [facility] Care ClydeStart: 11-22-2021(URG) Urgent Care Visit Jodie FigueroaFPMike [facility] Care ClydeStart: 11-22-2021 End: 89-04-5804xixakhewxmGzjenaxnk Breault Other [employer] Other Start: 10-20-2021 End: 59-49-5533Eulfisr encounter procedureLancal Reynoso ClemonsExecutive [facility] [place] [employer]INAS [employer] Start: 10-13-2021 End: 18-26-8269Mtzaegy encounter procedurePatricdimas Bassett TORRES MATINAS [employer] [facility] [place] MATINAS [employer] Start: 10-06-2021 End: 97-03-0000Javcrxb encounter procedurePatricdimas Bassett TORRES MATINAS BIOPHARMA [facility] [place] Start: 09-15-2021 End: 95-18-1097Glvakvf encounter procedurePatricdimas Bassett TORRES MATINAS BIOPHARMA [facility] [place] Start: 06-09-2021 End: 39-80-3674Ffywuif encounter procedurePatricdimas Danyelle [place]ide [facility] [place] Start: 06-08-2021 End: 31-98-0723cgrypapqsqYuegv Girvin Other [employer] Other Start: 91-14-7414Bztten outpatient visit 25 minutes Juvencio Paredes [facility] [place]vueStart: 05-10-2021 End: 83-13-0694mdkmeckpgwVvzgj Girvin Other [employer] Other Start: 65-73-5540Vqzmddaxt encounterDasingh Paredes [facility]ueStart: 04-12-2021(URG) Urgent Care VisitStepdipak Prado [facility] ClydeStart: 04-12-2021 End: 67-19-3556fwghfzgyiyRxqrkpvsq Carolina Other [employer] Other Start: 04-05-2021(URG) Urgent Care VisitStephanie CarolinaFPG [facility] Care ClydeStart: 04-05-2021 End: 68-71-3644hbuefslyezJijjxzehf [place] Other [employer] Other Start: 01-19-2021 End: 29-55-6796sgtyptuilaMdqej Marino Other [employer] Other Start: 78-28-4594Sahzvq outpatient visit 25 minutes Mireya QadirFPG NephrologyStart: 01-14-2021 End: 11-17-4642gkemytexfkNuyvz Daniel Other [facility] [employer] Other Start: 11-72-5236Nojylrqnb encounterDavid GirvinFPG Family Medicine BellueStart: 33-93-4472Gnmorl outpatient visit 15 minutesDavid DanielG Family Medicine BellueStart: 08-77-9939Thcwyizlr encounterDavid GirblairFPG Family Medicine BellevueStart: 34-12-8781Jcbncsa encounter procedure MALLORY JUARES JRFacility:I4Hgljj: 04-03-2020 End: 18-93-3705Dszqmye encounter procedureDAVID GIRBLAIRFacility:A9Afsmg: 12-88-1627Bdbvzquip for preprocedural cardiovascular examinationMALLORY JUARES JR [facility] Centertart: 34-25-6125Hocjgsfos for preprocedural laboratory examinationMALLORY JUARES JRAshtabula County Medical Centertart: 03-11-2020 End: 45-82-3533Ihjimog encounter procedureDAVID DANIELFacility:N7Aqmgh: 44-89-3429Mtzlgce encounter procedureMALLORY JUARES JRFacility:Z9Rssnv: 03-03-2020 End: 39-74-0487Gfpijpj encounter procedureDASINGH SANCHEZFacility:J6Gkmge: 03-09-2015 End: 79-62-4155Aguvnup encounter procedureKABETO HÉCTORFacility:[facility]OSPITALEncounter for preprocedural cardiovascular examinationMALLORY JUARES [facility] Procedures DateProcedureProcedure DetailPerforming ClinicianStart: 38-58-4615Xsziniwkb for occult blood in fecesDasingh Sanchez DO Work Phone: Start: 93-55-9961Nzgfhfhhb for occult blood in feces Juvencio Sanchez DO Work Phone: Start: 88-88-5345Bsuuhdalew, device (physical object) Akbar TORRES Start: 70-56-6287Amazx immunofixationDasingh Sanchez DO Work Phone: Comment on above:Presence of monoclonal protein is unclear at this time. Suggestrepeat in 3 to 6 months if clinically indicated. Start: 48-20-1441Sqxgx chest X-rayDasingh Sanchez DO Work Phone: Start: 44-37-8396GvyiobjrlgGxngsvi [employer] Start: 36-99-9024Jntu marrow samplingDasingh Sanchez DO Work Phone: Start: 14-82-1358F-ray skeletal surveyDasingh Sanchez DO Work Phone: Start: 41-67-7487F-ray of left knee, four viewsDasingh Sanchez DO Work Phone: Start: 30-40-6886Mauvsnryz for occult blood in feces Juvencio Sanchez DO Work Phone: Start: 16-58-5070Qjydbibxsmtqaty echocardiographyDO Juvencio Sanchez Work Phone: Start: 51-25-1658Mlsaz chest X-rayDO Juvencio Sanchez Work Phone: Start: 46-63-4805Ibpxqlquhmcto cystoscopyBDA Start: 30-20-1343Ladjhxjtk for occult blood in fecesDO Juvencio Sanchez Work Phone: Start: 44-68-5079J-ray of right footDO Juvencio Sanchez Work Phone: Start: 40-22-7215KhkipvglglWczlsdb [employer]AT[employer] Start: 97-33-3159DpdrlsbnamPbctcsn WATERS Start: 14-40-3665FkfqsfmtosHcrzhgs [employer]AT[employer] Start: 45-57-0696XurgmorezjRqiwlra [employer]ATERS Start: 35-57-0230FqdbmyewwaGpvzfjq WATERS Start: 59-25-0343Clcot cystoscopy and biopsy of bladder lesionLaAyeah Games Start: 36-19-0555PvmsoyxrhlNapvknp WATERS Start: 21-56-4552JpmwydewumJfxhzkw WATERS Start: 29-92-0701Uwgtgvjeygetd resection of bladder neoplasmLake Cumberland Regional HospitalAvison Young Start: 49-74-7128RhiwxucmklArzbzcr WATERS Start: 11-36-8792Ydoifllwlbp biopsy of prostate using ultrasound guidanceLaAyeah Games Bilateral replacement of knee jointsPaAyeah Games ColonoscopyBDA Laboratory test result abnormalAbnormal laboratory test Juvencio Sanchez DO Work Phone: Procedure on backPaAyeah Games Prosthetic arthroplasty of the hipPatrick TORRES Screening for occult blood in fecesDO Juvencio Sanchez Work Phone: TonsillectoElissa TORRES Plan of Treatment DateCare ActivityDetailAuthorStart: 31-19-5934Yrubk microalbumin profile DTaP,Tdap,Td Vaccine (4 - Td or Tdap)[facility] Companytart: 11-96-0093AqagnhcqhOur Lady of Mercy Hospital - Andersontart: 10-02-2024 End: 97-27-5056Tcyxykc encounter hbcrauyja81/27/2025 10:15 AM EDT Procedure [facility] [address] [place], [place] Bandar Juares, DPM [address] [place] [address] ArrivedNO [place] PodiatryComment on above:ArrivedStart: 10-01-2024 End: 84-20-7894Nzhuuue encounter hbbvmfcac05/26/2025 9:15 AM EDT Procedure Visit [facility] [address] [place] [address] Bandar Juares, DPM [address] [place] [address] MARTIN LINO PODIATRYStart: 06-24-2024 End: 82-55-5475Jccttek encounter haafrpkmr56/19/2025 8:00 AM EDT Procedure Visit [facility] [address] [place] [address] Bandar Juares, DPM [address] [place] [address] ArrivedNOMS LINO PODIATRYComment on above:ArrivedStart: 45-84-9556NdgnsjfeqOur Lady of Mercy Hospital - Andersontart: 03-26-2024 End: 85-86-2012Bywpdnf encounter olszfbhtk06/18/2025 10:00 AM EST Procedure Visit [facility] [address] [place] [address] Bandar Juares, DPM [address] [place] [address] ArrivedNOMS [facility]ODIATRYComment on above: ArrivedStart: 03-21-2024 End: 69-86-6738Ltxgivt encounter izyeiayec52/13/2025 8:00 AM EST Procedure Visit [facility] [address] [place] [address] Bandar Juares, DPM [address] [place] [address] NOMRakan [facility]ODIATRYStart: 27-46-8931WfklagcljOur Lady of Mercy Hospital - Andersontart: 11-15-5230Insa marrow samplingOur Lady of Mercy Hospital - Andersontart: 62-14-7970Tkipxnu Directive DiscussionAdvance Directive Discussion [facility] Companytart: 79-54-5919MygxoouvjOur Lady of Mercy Hospital - Andersontart: 09-83-7192Tbllg-19 Vaccine ( season)Covid-19 Vaccine ( season)[facility]: 98-87-3427Stgjilqel vaccinationInfluenza Vaccine (#1)[facility]: 41-23-1029DivfegvsbOur Lady of Mercy Hospital - Andersontart: 99-62-8928XaredqvpsOur Lady of Mercy Hospital - Andersontart: 68-08-2477DvvnwivvgOur Lady of Mercy [facility] - Andersontart: 06-65-6857WdicaeltmOur Lady of [facility] - Andersontart: 61-32-5182Dsbvnlh referralMarymount Hospital Work Phone: Start: 31-22-7963Jzsznehbcfpgntr of Right and Left Heart, TransesophagealUltrasonography of Right and Left Heart, Transesophageal [facility] Andersontart: 55-05-9014Nqslhuxp to senior ux developer [facility] Andersontart: 90-68-6226YyxlnitncOur Lady of Mercy Hospital - Andersontart: 72-60-3541Jlpjgpjp admissionOur Lady of Mer[facility] Hospital - Andersontart: 06-13-2023 End: 12-16-3503Hklqzlg encounter mkclkxext89/07/2024 8:00 AM EDT Procedure Visit [facility] [address] [place] [address] Bandar Juares DPM [address] [place] [address] [facility]ODIATRYStart: 38-69-5055Kyicgtd Directive DiscussionAdvance Directive DiscussionRegency Hospital Companytart: 02-06-2023 Depression AssessmentDepression AssessmentRegency Hospital Companytart: 01-12-2023 Shingrix Vaccine (2 of 2)Shingrix Vaccine (2 of 2)[facility]: 79-74-0851Yqszqbdpe vaccinationINFLUENZA (#1)[facility]: 02-06-2022 ADVANCE DIRECTIVE DISCUSSIONADVANCE DIRECTIVE DISCUSSIONRegency Hospital Companytart: 02-38-4756EOJWDYYYYJ ASSESSMENTDEPRESSION ASSESSMENTCleFisher-Titus Medical Centertart: 68-36-3245YldsvwzmoOur Lady of Mercy Hospital - Andersontart: 80-75-7493Qyfxgpqor vaccinationINFLUENZA (#1)[facility]: 93-67-8400WLQ Vaccine (1 - 1- dose 75+ series)RSV Vaccine (1 - 1-dose 75+ series)[facility]: 33-18-1063PKQUQBEW SCREENDIABETES SCREENRegency Hospital Companytart: 06-15-2018 Diabetes ScreeningDiabetes ScreeningRegency Hospital Companytart: 03-20-2016 PNEUMOCOCCAL: 65+ (2 - PCV)PNEUMOCOCCAL: 65+ (2 - PCV)[facility]: 17-59-4329TFZ Vaccine (1 - 1-dose 60+ series)RSV Vaccine (1 - 1-dose 60+ series) [facility]: 83-03-8622VMJZBYYZ VACCINE (1 of 2)SHINGRIX VACCINE (1 of 2)[facility]: 98-62-0770Qetvc microalbumin profileDTAP,TDAP,TD (1 - Tdap)[facility]: 75-40-7268Spdlhsq ScreeningAnxiety Screening [facility]: 62-63-7742Erxjqfdsbn ScreeningDepression Screening [facility]: 04-17-5542NFIGNWNIP C SCREENINGHEPATITIS C SCREENING [facility]: 38-02-4327Fyfacdndh C screeningHepatitis C Screening [facility]: 21-32-3986MEDZB-19 VACCINE (#1)COVID-19 VACCINE (#1) [facility] metabolic 1999 panel - Serum or [facility] HospitalComnew [facility] metabolic 2000 panel - Serum or Plasma [facility] HospitalComnew [facility] metabolic 1999 panel - Serum or [facility] HospitalComnew [facility] metabolic 2000 panel - Serum or [facility] HospitalComnew [facility] metabolic 2000 panel - Serum or [facility] HospitalGlucose measurement estimated from glycated hemoglobinDayton Children'S Hospital Work Phone: Glucose measurement estimated from glycated hemoglobin [facility] HospitalHemoglobin A1c/Hemoglobin.total in Blood [facility] Work Phone: Hemoglobin A1c/Hemoglobin.total in [facility] HospitalHemoglobin.gastrointestinal [Presence] in [facility] HospitalHemoglobin.gastrointestinal [Presence] in [facility] Private HospitalPatient EducationDayton Children'S Hospital Work Phone: Patient referralMarymount Hospital Work Phone: Renal function 2000 [facility] or [facility] HospitalRenal function 2000 panel - Serum or [facility] HospitalUS Thoracic and abdominal aortaProvidence HospitalXR Chest 2 ViewsBlount Memorial Hospital Immunizations Immunization DateImmunizationNotesCare YuztqkuzCjmpoqbe52-26-8073wjlvdibfe virus vaccine, unspecified formulationPatrick MELISSA [facility] [address]16-2024Seasonal trivalent influenza vaccine, adjuvanted, preservative freeDavid Girvin DO Work Phone: [facility]11-04-2024bacillus calmette-nithin vaccineAurora Orzech [facility] [place] 161860-21-2024bacillus calmette-nithin vaccineAurora Orzech [facility] [place] 161860-14-2024bacillus calmette-nithin vaccineAurora Orzech [facility]01-04-2024zoster vaccine recombinantPatrick TORRES [facility] [place] 161860-12-2023Flu Shot - Documentation Purposes OnlyAbdul Marino Other [facility]10-12-2023influenza virus vaccine, unspecified formulationPatrick TORRES [facility] [place] 161860-12-2023zoster vaccine recombinantPatrick TORRES [facility]08-30-2023bacillus calmette-nithin vaccineJENNIFER SOLE [facility]08-23-2023bacillus calmette-nithin vaccineJENNIFER SOLE [facility]08-16-2023bacillus calmette-nithin vaccineJENNIFER SOLE [facility] [place] 161861-23-2022Influenza vaccine, quadrivalent, adjuvantedDavid Girvin DO Work Phone: [facility]11-23-2022influenza virus vaccine, unspecified formulationJENNIBETH WHIPPLE [facility]09-14-2022bacillus calmette-nithin vaccineLanalmitae ClemonsExec[facility] of [facility]09-07-2022bacillus calmette- nithin vaccineBurbank Placed [facility]08-31-2022bacillus calmette-nithin vaccineBurbank Placed [facility]02-28-2022tetanus and diphtheria toxoids, adsorbed, preservative free, for adult use (5 Lf of tetanus toxoid and 2 Lf of diphtheria toxoid)Jodie Figueroa Other [facility]02-28-2022tetanus and diphtheria toxoids, adsorbed, preservative free, for adult use (2 Lf of tetanus toxoid and 2 Lf of diphtheria toxoid)DUSTY WHIPPLE [facility]y10-16-2021Fluzone QIV High-Dose 65YR+Juvencio Sanchez DO Work Phone: [facility]10-16-2021influenza virus vaccine, unspecified formulationJENNIBETH WHIPPLE [facility]09-08-2021bacillus calmette-nithin vaccineBurbank Placed [facility] 08871115-75-2544zsgzaibu calmette-nithin vaccineBurbank Placed [facility] 08383509-20-2283lxaxigmx calmette-nithin vaccinePaowensboro health regional hospitalAvison Young [facility] 08028862-62-1753hgjkdlwy calmette-nithin vaccinePaowensboro health regional hospitalk Placed [facility] 08768480-00-1092xzhfrelp calmette-nithin vaccinePakindred hospital [place] Placed [facility] 07457906-01-9532crioakon calmette-nithin vaccinePakindred hospital [place] Placed [facility] 12435149-05-1769auhixrevu virus vaccine, unspecified formulationPakindred hospital [place] Placed [facility] 11077423-96-8840Tnkpjnhuf vaccine, quadrivalent, adjuvanted Juvencio Michaelblair DO Work Phone: [facility]11-05-2020influenza virus vaccine, unspecified formulationJENNIFER SOLE [facility]11-05-2020pneumococcal conjugate vaccine, 13 valentJENNIFER SOLE [facility]y10-14-2020influenza virus vaccine, unspecified formulationJENNIFER SOLE [facility] [place] 161860-01-2020pneumococcal conjugate vaccine, 13 valentJENNIFER SOLE [facility] [place] 161861-13-2018influenza virus vaccine, unspecified formulationJENNIFER SOLE [facility] [place] 161861-13-2018influenza, high dose seasonal, preservative-freeDavid Daniel Other [facility]10-17-2016 pneumococcal polysaccharide vaccine, 23 valentDavid Girvin Other [facility]02-12-2016influenza virus vaccine, unspecified formulationJENNIFER SOLE [facility]02-12-2016influenza, high dose seasonal, preservative-freeColin Bilski PA-C Work Phone: [facility] HospitalNbnesz09-43-6910vmyyfzismofl polysaccharide vaccine, 23 valentColin Bilski PA-C Work Phone: [facility] HospitalGoqmlf67-21-6905ltvnshv toxoid, reduced diphtheria toxoid, and acellular pertussis vaccine, adsorbedJENNIFER SOLE [facility] Payers DatePayer CategoryPayerPolicy [id number] (Managed Care)[employer] MEDICARE [id number]-moz [id number]-[id number]-261s-591444y6bl4027-84-6101Vctjygf 1.2.840.425500.1.13.159.2.7.3.570[id number] 2.16.840.9.045179.613119 [id number] [id number] [id number] 1945Unknown [id number] 2.840.1.536207.3.57[id number] 2.840.1.907440.3.57[id number] 2.840.1.667768.3.57[id number] 2.840.1.570114.3.57[id number] 2.840.1.609094.3.57[id number] 2.840.1.350746.3.57[id number] 2.16840.1.845475.3.57[id number] 2.16840.1.504455.3.57[id number] 2.16840.1.887561.3.57[id number] 2.840.1.990913.3.57[id number] 2.16840.1.061693.3.579.[id number] 2.16840.1.356285.3.579.[id number] 2.840.1.743316.3.57[id number] 2.16840.1.907191.3.579.2.75353-28-8606Wlfecpj01763828 2.0.1.360058.3.57[id number] 2..1.446798.3.57[id number] 2.0.1.770630.3.57[id number] 2.0.1.444081.3.57[id number] 2..1.455019.3.579.2.932192-01-2550Qqlgtbu3881738 2..1.411705.3.57[id number] 2..1.931944.3.579.2.971053-90-5383Yikdmbt Health Insurance 1.2.840.968159.1.13.693.2.7.9.210195.071[id number] [id number] 2.0.1.4[id number] 2.16.840.1.681109.3.579.2.531 [id number] 2.16.840.1.51840[id number] 2.16.840.1.9[id number] 2.16.840.1.605027.3.579.2.531 [id number] 2.16.840.1.3[id number] 2.16.840.1.0[id number] 2.16.840.1.818950.3.579.2.531 [id number] 2.16.840.1.2[id number] 2.16.840.1.57[id number] 2.16.840.1.154587.3.579.2.531 [id number] 2.16.840.1.501235.3.579.2.531 Social History DateTypeDetailFacilityStart: 11-10-2020 End: 08-80-8597Cuvzqir smoking statusEx-smoker (finding)[facility] [employer] Other Tobacco smoking statusNeverExecutive Urology of [facility] Start: 11-20-2019 End: 13-62-8894Wco Assigned At [facility] [employer] Other Start: 69-43-6145Jkg [facility]igned At [facility]art: 03-16-1961 End: 33-95-7317Etdbzqb of tobacco useCurrent smokerRegency Hospital Companytart: 03-16-1960 End: 32-10-3292Dbzgmdt of tobacco useCigarette SmokerClezanesville city hospital ClinicStart: 06-08-2015 End: 44-24-4487Orcktqoaho smoked current (pack per day) - Reported0.5Ctrumbull memorial hospital ClinicStart: 06-08-2015 End: 73-90-0842Ddlixme use and exposureSmokeless tobacco non-userRegency Hospital Companytart: 11-20-2019 End: 04-15-4583Lhmyion intakeCurrent drinker of alcohol (finding)[facility]: 00-47-3489Ivmevcr CommentoccasionalCtrumbull memorial hospital ClinicStart: 04-34-6394Ryswis identityIdentifies as male gender (finding)[facility] Start: 29-10-6848Oiezak orientationHeterosexual (finding)[facility] Work Phone: Start: 03-14-2023 End: 38-40-9347Pebquvo smoking status NHISNever smoked tobaccoMOUNTAIN POINT [facility] Start: 03-14-2023 End: 52-04-5536Nxczvli intakeLifetime non-drinker (finding)[facility] HealthcareStart: 66-39-9271Ytvlsug Commentcaffeine intake: 1-2 cups per dayMOUNTAIN POINT MEDICAL CENTER HealthcareStart: 27-55-0975Fog Assigned At BirthNot on fileMOUNTAIN POINT MEDICAL CENTER HealthcareStart: 06-29-2023 End: 72-40-2503Jxnimln smoking status NHISCurrent some day smokerOur Lady of Mercy Hospital - Andersontart: 12-16-2023 End: 38-91-3353OxwFmlu (finding)[facility] Andersonexual OrientationExecutive [facility]rology of [facility] Medical Equipment Procedure CodeEquipment CodeEquipment Original TextEquipment IdentifierDates Cement Simplex P Bone Radiopaque Full Dose Sterile - [id number]: 52-21-8900Anw-Of-A-Kind Implant - [id number]: 18-71-5207Fzhofnm on above:Description: Modular head component, uqtfvhpmSrs-Un-W-Kind Implant - [id number]_xfcKxzwr: 65-90-5879Bfvgfux on above:Description: CHECKING FOR PRICINGBody Anabaptist 27mm +20mm Cone Modular Revision Hip - [id number]_impStart: 03-09-6766Sho-Of-A-Kind Implant - [id number]_dzvZftie: 78-72-4624Hkkmcvh on above:Description: Revision shell liner 0 degree 40mm I.D. Head V40 28mm -4mm Offset Taper Biolox Delta Femoral Hip - [id number]_qsk Start: 81-99-7251Dpamx Anabaptist Osteolock 6.5mm Hexagon Titanium 45mm Bone Wedge Hip - [id number]_cflDnsqn: 12-03-5848Rtfzlx Simplex P Bone Radiopaque Full Dose Sterile - [id number]_coeJwcqi: 45-31-8646Xccreq Simplex P Bone Radiopaque Full Dose Sterile - [id number]_mqjXlzco: 04-86-0485Lig-Of-A-Kind Implant - [id number]_jyxYukky: 56-91-4812Gzgzjlz on above:Description: Stage 1 select hip spacer, stem mold w reinforcement. 15mm x 200mmStem Anabaptist 25mm Straight Cone Conley 155mm Femoral Modular Hip - [id number]_gzcYshkz: 32-92-4912Urxif Mdm 48mm G Cocr Acetabular 28mm Femoral Head Hip - [id number]_xyzOxgrt: 26-75-7699Jrgsdg Adm Mobile Bearing Hip Anabaptist 54mm 28mm 0d X3 9.9mm Acetabular - [id number]_liu Start: 81-30-2707Pjyim Anabaptist Osteolock 6.5mm Hexagon Titanium 30mm Bone Wedge Hip - [id number]_usdTzqxu: 27-06-3230Twajw Anabaptist Osteolock 6.5mm Hexagon Titanium 28mm Bone Wedge Hip - [id number]_uhqXtsnj: 91-09-4054Xlsqn [employer] Osteolock 6.5mm Hexagon Titanium 35mm Bone Wedge Hip - [id number]_epqVmfan: 50-32-2873Fjmnp [employer] Osteolock 6.5mm Hexagon Titanium 40mm Bone Wedge Hip - [id number]_ouzBfsgd: 06-16-2015 Screw Osteolock 6.5mm Titanium 12mm Acetabular Hexagon Hip Cancellous - [id number]_luvBclds: 06-16-2015 Goals DatePatient GoalDesired Activity/State Functional Status FxfaAdiwdkhmbpOhzifkZoettrqv46-12-3011Jgjapryqln StatusN/AExec[facility] of [place] 161861-04-2024Functional StatusN/A[facility] Northy10-21-2024Functional StatusN/A [facility] [place] 161860-14-2024Functional StatusN/[facility]y05-24-2024 Functional status[facility] at [facility] Work Phone: [phone] StatusN/A[facility]08-30-2023Functional StatusN/[facility]08-16-2023Functional StatusN/A [facility]08-02-2023Functional StatusN/[facility]02-01-2023 Functional StatusN/[facility] 13-00-1581Omdquhnoee StatusN/A[facility] of [facility]09-14-2022N/[facility] [id number] StatusN/A[facility] of [facility]08-31-2022Functional StatusN/A[facility]2022Functional StatusN/A[facility] Mental Status Dslk[id number] functionCognitive Status [facility] Work Phone: Clinical Notes 04-06-2006 to 10-02-2024 Note Date & [id number] History of Present illness Narrative* Bandar Juares, DPM - 10/02/2024 10:15 AM EDT Images from the original note were not included. HPI: Patient presents in office today for routine toenail care. Patient states that they have noticed changes in the appearance of the toenails for the past chronic The nails are thickened and discolored. This has not worsened with time. Patient does not have pain associated with the toenails. Patient sees Dr. Sanchez as his PCP, last visit 02/09/24. No other complaints. Exam: General Examination: GENERAL APPEARANCE: awake, aware of surroundings, in no acute distress. Vascular: DORSALIS PEDIS PULSE: 2/4, bilaterally . POSTERIOR TIBIAL PULSE: 2/4, bilaterally . TEMPERATURE GRADIENT: warm to cool . EDEMA: Mild to the ankle bilateral . CAPILLARY FILLING TIME(sec): capillary fill intact bilateral digits less than 3 secs. Neurologic: NEUROLOGIC light touch is intact to the plantar foot. Dermatologic: SKIN FINDINGS: Normal, varicosities to the bilateral lower extremity. HYPERKERATOSIS: sub 2nd, sub 5th MPJ right NAIL PATHOLOGY: digits 1-5 bilateral are Thickened, dystrophic, crumbly, elongated and with subungual debris SKIN PATHOLOGY: texture, turgor, hair growth, within normal limits . Orthopedic: FOOT MORPHOLOGY: Cavus. JOINT RANGE OF MOTION: Limited range of motion is noted to the lesser MPJs and digits bilateral . DEFORMITIES: Semi-rigid contracture right 2nd digit. There is residual contracture to the DIPJ, butimprovement in noted in the contracture to the PIPJ. There is widening between the right second andthird digits. Mild contracted form and these 2 through 4 left, 3 and 4 right . PAIN ELICITED WITH PALPATION OF: none PAIN ELICITED WITH ROM: none . MUSCLE STRENGTH 5/5 for all pedal groups tested. Assessments: Onychomycosis Bilateral foot pain Callous right foot Foot deformity Pes cavus Plan: 1. All mycotic and/or dystrophic nails were debrided in length and thickness by manual and mechanical means. 2. Advised patient of proper foot care to prevent any future complications including daily monitoring of the feet. 3. RTC: 9-12 weeks or as needed if problems arise as patient would like to continue to come in for routine nail care appointments to prevent future pain and problems developing from the overgrowth ofthe toenails. Callous: 1. Hyperkeratosis/porokeratosis as above noted was debrided. 2. Instructed patient on use of aperture pads or Silipos padding/toe spacers to prevent rubbing andcontinued development of the hyperkeratosis. 3. Also discussed use of moisturizing creams for overall increased hydration to the skin. 4. Discussed continued use of proper foot gear to avoid excess pressure over the callous site. documented in this encounterL[facility] [id number] Hospital Discharge instructions Patient Education 10/01/2024 08:24:12 Cancer Screening for Males Cancer Screening for Males A cancer screening is a test or exam that checks for cancer. Work with your health care provider tocreate a cancer screening schedule that protects your health. Who should have screening? All people who are male should be considered for screening of certain cancers, including colorectalcancer, prostate cancer, lung cancer, and skin cancer. Your health care provider may recommend screenings for other types of cancer if: You have had cancer before. You have a family member with cancer. You have genes that could increase the risk of cancer. You have risk factors for certain cancers, such as current or past use of tobacco products or beingoverweight. What are the benefits of screening? Cancer screening is done to look for cancer in the very early stages, before it spreads and becomesharder to treat and before you would start to notice symptoms. Finding cancer early improves the chances of successful treatment. It may save your life. When should I be screened for cancer? When you should be screened for cancer depends on: Your age. Your medical history and your family's medical history. Certain lifestyle factors, such as smoking or other use of tobacco products. Environmental exposure, such as to asbestos. How is screening done? Colorectal cancer Colorectal cancer screening looks for cancer or for growths called polyps that often form before cancer starts. Tests to look for cancer or polyps include: Colonoscopy or flexible sigmoidoscopy. For these procedures, a flexible tube with a small camera isinserted into the rectum. CT colonography. This test uses X-rays and a contrast dye to check the colon for polyps. Tests to look for cancer in the stool (feces) include: Guaiac-based fecal occult blood test (FOBT). This test can find blood in stool. It can be done at home with a kit. Fecal immunochemical test (FIT). This test can find blood in stool. For this test, you will need tocollect stool samples at home. Stool DNA test. This test looks for blood in stool and any changes in DNA that can lead to colon cancer. For this test, you will need to collect a stool sample at home and send it to a lab. All adults should have screenings starting at 45 years old and continuing through 75 years old. Formales 76 85 years old, the decision to be screened should be based on a person's preferences, life expectancy, overall health, and prior screening history. Your health care provider may recommend screening before 45 years old. You will have tests every 1 10 years, depending on your results and the type of screening test. People at increased risk should start screening at an earlier age. Talk withyour health care provider about which screening test is right for you and how often you should be screened. Prostate cancer Prostate cancer screening is done with blood tests and a digital rectal exam. During this exam, a health care provider uses a gloved finger to check prostate size. You may need to be screened for prostate cancer if: You have risk factors for prostate cancer, such as being an person or having a close family member with prostate cancer. You have had gene changes or a genetic condition that was passed on to you from a parent (inherited). These gene changes or genetic conditions include BRCA1 or BRCA2 gene mutations or Dinero syndrome. You have symptoms of prostate cancer, such as problems urinating or problems getting or keeping an erection (erectile dysfunction). When you have been screened for prostate cancer, future screening may be recommended based on the results of your blood tests. Prostate cancer screening for males with average risk may start at 50 years old. Males with risk factors may need to be screened earlier, at 40 45 years old. Talk with your health care provider aboutwhether screening is right for you and, if so, how often you should be screened. Lung cancer Lung cancer screening is done with a CT scan that looks for abnormal changes in the lungs. Discuss lung cancer screening with your health care provider if you are 50 80 years old and if any of the following apply to you: You currently smoke. You used to smoke heavily. You have a smoking history of 1 pack of cigarettes a day for 20 years or 2 packs a day for 10 years. You may need to be screened every year if you smoke heavily or if you used to smoke. Skin cancer Skin cancer screening is done by checking the skin for unusual moles or spots and any changes in existing moles. Your health care provider should check your skin for signs of skin cancer at every physical exam. You should check your skin every month and tell your health care provider right away if anything looks unusual. Males with a xrsomo-qqwo-rfftoj risk for skin cancer may want to see a parking enforcement specialist (flagman) for an annual body check. Where to find more information [employer] Cancer [employer]: cancer.org Centers for Disease Control and Prevention: cdc.gov National Cancer [place]: cancer.gov Contact a health care provider if: You have concerns about any signs or symptoms of cancer. These may include: ?Skin problems. You may have: ?Moles of an unusual shape or color. ?Changes in existing moles. ?A sore on your skin that does not heal. ?Tiredness (fatigue) that does not go away. ?Losing weight without trying. ?Blood in your urine or stool. ?Problems with urination. You may have: ?Changes in urination habits. ?Painful urination. ?Painful ejaculation. ?Problems with coughing or breathing. These may include: ?Coughing or trouble breathing that does not go away. ?Coughing up blood. ?Frequent pain or cramping in your abdomen. This information is not intended to replace advice given to you by your health care provider. Make sure you discuss any questions you have with your health care provider. Document Revised: 01/31/2023 Document Reviewed: 08/15/2022 [employer] Patient Education 2023 [email or web address]. Follow Up Care 08/15/2024 13:45:02 With:MELISSA THORNTON, Akbar Bassett, URL Address: [facility] [address] , [place] [address]- When: Unknown [facility] 08-26-2025 NotePatient Education Oncology Cancer Screening for Males A cancer screening is a test or exam that checks for cancer. Work with your health care provider tocreate a cancer screening schedule that protects your health. Who should have screening? All people who are male should be considered for screening of certain cancers, including colorectalcancer, prostate cancer, lung cancer, and skin cancer. Your health care provider may recommend screenings for other types of cancer if: ??? You have had cancer before. ??? You have a family member with cancer. ??? You have genes that could increase the risk of cancer. ??? You have risk factors for certain cancers, such as current or past use of tobacco products or being overweight. What are the benefits of screening? Cancer screening is done to look for cancer in the very early stages, before it spreads and becomesharder to treat and before you would start to notice symptoms. Finding cancer early improves the chances of successful treatment. It may save your life. When should I be screened for cancer? When you should be screened for cancer depends on: ??? Your age. ??? Your medical history and your family's medical history. ??? Certain lifestyle factors, such as smoking or other use of tobacco products. ??? Environmental exposure, such as to asbestos. How is screening done? Colorectal cancer Colorectal cancer screening looks for cancer or for growths called polyps that often form before cancer starts. Tests to look for cancer or polyps include: ??? Colonoscopy or flexible sigmoidoscopy. For these procedures, a flexible tube with a small camera is inserted into the rectum. ??? CT colonography. This test uses X-rays and a contrast dye to check the colon for polyps. Tests to look for cancer in the stool (feces) include: ??? Guaiac-based fecal occult blood test (FOBT). This test can find blood in stool. It can be done at home with a kit. ??? Fecal immunochemical test (FIT). This test can find blood in stool. For this test, you will need to collect stool samples at home. ??? Stool DNA test. This test looks for blood in stool and any changes in DNA that can lead to colon cancer. For this test, you will need to collect a stool sample at home and send it to a lab. All adults should have screenings starting at 45 years old and continuing through 75 years old. Formales 76?85 years old, the decision to be screened should be based on a person's preferences, life expectancy, overall health, and prior screening history. Your health care provider may recommend screening before 45 years old. You will have tests every 1?10 years, depending on your results and the type of screening test. People at increased risk should start screening at an earlier age. Talk withyour health care provider about which screening test is right for you and how often you should be screened. Prostate cancer Prostate cancer screening is done with blood tests and a digital rectal exam. During this exam, a health care provider uses a gloved finger to check prostate size. You may need to be screened for prostate cancer if: ??? You have risk factors for prostate cancer, such as being an person or having aclose family member with prostate cancer. ??? You have had gene changes or a genetic condition that was passed on to you from a parent (inherited). These gene changes or genetic conditions include BRCA1 or BRCA2 gene mutations or Dinero syndrome. ??? You have symptoms of prostate cancer, such as problems urinating or problems getting or keepingan erection (erectile dysfunction). When you have been screened for prostate cancer, future screening may be recommended based on the results of your blood tests. Prostate cancer screening for males with average risk may start at 50 years old. Males with risk factors may need to be screened earlier, at 40?45 years old. Talk with your health care provider aboutwhether screening is right for you and, if so, how often you should be screened. Lung cancer Lung cancer screening is done with a CT scan that looks for abnormal changes in the lungs. Discuss lung cancer screening with your health care provider if you are 50?80 years old and if any of the following apply to you: ??? You currently smoke. ??? You used to smoke heavily. ??? You have a smoking history of 1 pack of cigarettes a day for 20 years or 2 packs a day for 10 years. You may need to be screened every year if you smoke heavily or if you used to smoke. Skin cancer Skin cancer screening is done by checking the skin for unusual moles or spots and any changes in existing moles. Your health care provider should check your skin for signs of skin cancer at every physical exam. You should check your skin every month and tell your health care provider right away if anything looks unusual. Males with a gtbstf-bbil-kkatls risk for skin cancer may want to see a parking enforcement specialist (dermatologi (more content not included)...[facility]08-14-2025 Evaluation note* Diagnosis Onset Date Resolution Status Admit Date Anemia of renal disease acuteAugust 2024 10:28amBence Long proteinacuteAugust 2024 10:28am CKD (chronic kidney disease) stage 3, GFR 30-59 ml/minacuteAugust 2024 10:28amProteinuriaacuteAugust 2024 10:28am [facility] Work Phone: 1(330) 433-769208-14-2025 Evaluation note* Diagnosis Onset Date Resolution Status Admit Date Anemia of renal disease acuteAugust 2024 10:28amBence Long proteinacuteAugust 2024 10:28am CKD (chronic kidney disease) stage 3, GFR 30-59 ml/minacuteAugust 2024 10:28amProteinuriaacuteAugust 2024 10:28amSkin tearacuteSeptember 2024 9:13am [facility] Work Phone: 1(376) 652-857208-14-2025 Evaluation note* Diagnosis Onset Date Resolution Status Admit Date Anemia of renal disease acuteAugust 2024 10:28amBence Long proteinacuteAugust 2024 10:28am CKD (chronic kidney disease) stage 3, GFR 30-59 ml/minacuteAugust 2024 10:28amProteinuriaacuteAugust 2024 10:28amSkin tearacuteSeptember 2024 9:13amCKD (chronic kidney disease) stage 3, GFR 30-59 ml/minacuteOctober 2024 12:49pmHyperlipidemiaacuteOctober 2024 12:49pmHypertensionacute October 2024 12:49pmIrregular heart beatacuteOctober 2024 12:49pm Persistent atrial fibrillationacuteOct2024 12:49pm [facility] Work Phone: 1(132) 530-885208-14-2025 [facility] [place] [address] Cancer Center Note Signed Patient: Indiana Hines MR#: [id number] : 1945 Acct:[id number] Age/Sex: 79 / M Type: REG AMB Date of Service: 09/19/24 Copies to: Juvencio Sanchez,DO~ Assessment & Plan A/P (1) Bence Long protein: (2) Proteinuria: (3) Anemia of renal disease: (4) CKD (chronic kidney disease) stage 3, GFR 30-59 ml/min: Plan Mark is a 78-year-old nice gentleman was referred by Dr. Mireya Pichardo from nephrology to our hematology clinic for evaluation and management of new Bence- Long proteinuria. see HPI for complete details. 03/14/24: Patient is here for results of the BMBx, Results of the skeletal bone survey andlabs and further planning of his care and [...] biopsy and aspirate on 02/27/2024 and the resultsrevealed: Normocellular bone marrow for age in the [...] This could explain the inflammatory cells and polytypicplasma cellsseen in the bone marrow. 09/19/24: He is here for 6 months FU for history of Bence Long proteinuria. He denied anyB symptoms or enlarged LAP. labs on 09/12/24 [...] 129 stable rest of the LFTs are normaltotal protein is normal at 6.4 M spike is stable lites 0.2 IgG IgA and IgM are within normal range.Serum immunofixation revealed presenceof monoclonal protein is unclear at this point [...] urine UPEP and urine light chains then. Orders: Orders Complete Blood Count Auto Diff 6 Months R80.3 - Bence Long proteinuria Comprehensive Metabolic Panel 6 Months R80.3 - Bence Long proteinuria Fr Kotlik/Lambda LTC Urine 6 Months R80.3 - Bence Long proteinuria Free K+L LT Chains, Qn, S 6 Months R80.3 - Bence Long proteinuria Immunofixation,Serum 6 Months R80.3 - Bence Long proteinuria Immunoglobulins A/G/M, Qn, Ser 6 Months R80.3 - Bence Long proteinuria Protein Electrophoresis, Serum 6 Months R80.3 - Bence Long proteinuria Protein Electro, 24Hr Urine 6 Months R80.3 - Bence Long proteinuria Patient Instructions: follow up in 6 months cbc, cmp, myeloma labs, 24hour urine, urine light chains in 6 months prior to f/u CHEMO PLAN No Active Chemotherapy History of Present Illness HPI Mark is a 78-year-old nice gentleman was referred by Dr. Mireya Pichardo from nephrology to our hematology clinic for evaluation and management of new Bence- Long proteinuria. Mr. Hines has a history of chronic kidney disease stage II/III with intermittentAKI. Serum creatinine ranges from 1.2-1.5. He has multiple joint osteoarthritis as well. He has a longstanding. Managedby PPI and history of A- fib underwent cardioversion in July 2023. He is on amiodarone for rhythm control and Xarelto for CVA prophylaxis. He also sees urology for bladder cancer for which she had a cystoscopy in September [address] [facility]. He was referred to our hematology clinic because Dr. Mireya Pichardo ordered urinary proteins which revealed presence of Bence-Long proteinuria. His proteinuria has could be due to his hypertensive nephrosclerosis and the prediabetes per himbut was sent to us forfurther evaluation likely with a bone marrow biopsy. Labs on 12/15/2023 revealed normal CBC except for hemoglobin of 12.5 with 0.9 absolute lymphocyte count. Creatinine is 1.41 calcium of 9.1. Iron studies were normal B12 and folate were normal LFTs were normal except for alk phos slightly elevated of 138. As urinary immunofixation revealed Bence-Long protein present. Serum immunoglobulins IgG and IgA and IgM were normal. The serum immunofixation revealed that cannot rule out presence of monoclonal protein at this point. The serum free kappa light chain was slightly elevated 23.1 and thelambda was normal at 14 and the kappa/lambda ratio was normal 1.65. Therefore patient was referred to hematology for our opinion regarding the presence of Bence-Long proteinuria and rule out amyloidosis and rule out multiple myeloma as an etiology for his chronic renal insufficiency. 03/14/24: Patient is here for results of the BMBx, Results of the skeletal bone survey andlabs and further planning of his care and [...] biopsy and aspirate on 02/27/2024 and the resultsrevealed: Normocellular bone marrow for age in the [...] This could explain the inflammatory cells and polytypicplasma cellsseen in the bone marrow. 09/19/24: He is here for 6 months FU for history of Bence Long proteinuria. He denied anyB symptoms or enlarged LAP. labs on 09/12/24 [...] 129 stable rest of the LFTs are normaltotal protein is normal at 6.4 M spike is stable lites 0.2 IgG IgA and IgM are within normal range.Serum immunofixation revealed presenceof monoclonal protein is unclear at this point suggested repeating it in 3 to 6 months. And free kappa light chain is minimally elevated 25.8 and very stable with normal lambda at 15 and K/L ratio is 1.68 slightly elevated but stable. Intake Vitals/Pain Assessment 09/19/24 10:31 Weight 111.13 kg BP 125/57 L Blood Pressure Location Rt brachial Position Sitting Pulse 56 L Pulse Source NIBP Respiration 16 Pulse Oximetry (%) 98 Oxygen Delivery Method room air Are you having pain? Yes Pain Location back Pain scale (0-10) 8 Intake Visit Reasons: Follow Up 6 Months Accompanied by: Spouse Allergies nafcillin Adverse Reaction (Severe, Verified 09/19/24 10:33) Unknown Reaction [place] Home Medications - Last Reconciled 09/19/24 by MAIK Lang acetaminophen ER (Tylenol Arthritis Pain) 2 tabs PO Q8HR amiodarone 200 mg PO DAILY 90 days amlodipine 10 mg PO DAILY 90 days ascorbate calcium (vitamin C) 500 mg PO DAILY benzonatate take 2 (100 MG) capsules orally three times daily; cholecalciferol (vitamin D3) 125 mcg PO DAILY coenzyme Q10 (Co Q-10) 200 mg PO DAILY diphenhydramine-acetaminophen 25-500 mg (Tylenol PM Extra Strength) 1 tab PO QHSPRN finasteride 5 mg PO DAILY lisinopril 5 mg PO DAILY metoprolol succinate ER 25 mg PO DAILY 30 days minocycline 100 mg PO DAILY yoffxqrc-hth-llzvg-vit K-lycop 400-20-370 mcg (Men's 50 Plus Multivitamin) 1 tabPO DAILY omega 0-olm-hct-fish oil 1,200 (144-216) mg (Fish Oil) 1 cap PO DAILY omeprazole 40 mg PO DAILY rivaroxaban (Xarelto) 20 mg PO QPM 90 days rosuvastatin 10 mg PO DAILY zinc acetate 50 mg PO DAILY Gastrointestinal Is the patient taking opioids for pain control?: No Bowel Protocol for Opioids Given: No Bowel Pattern: Regular Bowel Movement Aid(s): None Nurse's Note: Patient is here for a 6 month follow up with labs for review. no concerns voicedat time of intake. [facility] Medical History Medical History Hypertension Hyperlipidemia Fatigue Hx of pilonidal cyst 1990 [place] kid w cr kid I-IV Secondary hyperparathyroidism CKD (chronic kidney disease) stage 3, GFR 30-59 ml/min Neuropathy Hammer toe of right foot GERD (gastroesophageal reflux disease) Elevated PSA Herniated disc 1978 back Bladder cancer Surgical History Surgical History History of neck surgery History of colonoscopy 2006 History of total right knee replacement 2013 History of left knee replacement 1999 History of total hip replacement 08/13/2014 - right hip- [facility]- CC repaired 2015 Family History Family History Father 94 yrs Cardiomyopathy Mother 94 yrs Diabetes Brother Atrial fibrillation Sister No problems noted. Social History Social History (Updated 06/24/24 @ 09:11 by Ramona Bravo CMA) Smoking status: Former smoker Nicotine containing products detail: cigarette one every month or so Second hand tobacco smoke exposure: No Within the past year, how often did you have a drink containing alcohol: monthly or less Within the past year, how many standard drinks containing alcohol did you have on a typical day: 1 or 2 Within the past year, how often did you have six or more drinks on one occasion: never AUDIT-C Alcohol total score: 1 AUDIT-C Alcohol score interpretation: A score less than 4 is consistent with normal alcohol consumption. In the past 12 months, have you used illegal drugs or prescription drugs for non-medical reasons?: No Previous occupational history: Current: Retired Highest level of school completed/degree received: high school graduate Review of Systems ROS Details: All systems reviewed & no additional complaints except as documented General: Patient denied fevers, chills, rigors, weight loss or loss of appetite. Head: Patient denied any headaches or vision changes Thoracic: Patient denied any shortness of breath or cough or hemoptysis Cardiovascular patient denies any chest pain or leg edema GI: Patient denies any nausea vomiting rectal bleed diarrhea : Patient denied gross hematuria. Hematology: Patient denied any bleeding from any source. No easy bruising. Lymphatic: No enlarged LAP anywhere. Skin: Normal skin exam no rashes or suspicious lesions. Neurological patient denies any headache or dizziness or focal weakness or sensory changes. Physical Exam EXAM HEENT normocephalic atraumatic pupils are equal and round Neck supple without thyromegaly or any cervical lymphadenopathy. Chest clear to auscultation bilaterally without wheezing crackles or rhonchi Heart regular rate and rhythm S1-S2 without murmurs gallop or rub Abdomen soft nontender not distended without hepatosplenomegaly or masses clinically Extremities no edema of the lower extremities Skin without any suspicious rashes Lymphatic system no lymphadenopathy in the cervical area axillary areas or inguinal areas bilaterally Neurological exam patient is cooperative alert and oriented x3 no focal deficits. [facility] LAB RESULTS Corrected WBC, (4.1-10.5) 6.9 X10E3/uL 09/12/24, 09:2 1 Hgb, (13.0-17.0) 11.0 g/dL L 09/12/24, 09:21 Hct, (38.8-50.0) 33.9 % L 09/12/24, 09:21 MCV, (83.5-101) 88.0 fl 09/12/24, 09:21 RDW, (12.0-14.8) 16.0 % H 09/12/24, 09:21 Plt Count, (150-450) 279 x10E3/uL 09/12/24, 09:21 Sodium, (136-145) 139 mmol/L 09/12/24, 09:21 Potassium, (3.5-5.1) 5.0 mmol/L 09/12/24, 09:21 BUN, (7-25) 36 mg/dL H 09/12/24, 09:21 Creatinine, (0.70-1.30) 1.43 mg/dL H 09/12/24, :21 Glucose, (70-100) 86 mg/dL 09/12/24, 09:21 Est GFR (CKD-EPI) 49.533 mL/Min 09/12/24, : Calcium, (8.6-10.3) 9.0 mg/dL 09/12/24, 09:21 Total Bilirubin, (0.3-1.0) 0.4 mg/dl 09/12/24, 09: 21 AST, (13-39) 16 U/L 09/12/24, 09:21 ALT, (7-52) 14 U/L 09/12/24, 09:21 Alkaline Phosphatase, (34-104) 129 U/L H 09/12/24, 09:21 Total Protein, (6.4-8.9) 6.5 gm/dL 09/12/24, 09: Albumin, (3.5-5.7) 3.9 gm/dL 09/12/24, 09:21 Social Determinants of Health Screening SDOH last assessed in clinic: 09/19/24 Will the patient participate in the screening?: Yes Do you worry about having a steady place to live?: No In the past 12 months, have you had to go without electric, gas, oil, or water in your home?: No Have you or anyone in your house had to go without enough food to eat?: No Has lack of reliable transportation kept you from medical appointments or from doing things needed for daily living?: No Has anyone in your support network made you feel unsafe for any reason?: No Does the patient want assistance with any of the above?: No Dictated By: Altaf Das MD DD/ 1030 Signed By: 09/19/24 1056 [facility]05-20-2025 Evaluation note* Author Juvencio Sanchez [facility] HospitalAuthoredMay 2024 11:28amThe above note written by ___Valencia Luna____ acting as human recorder, note dictated by Dr. Sal .I performed the above HPI, ROS, and Examination. I formulated and dictated the treatment plan and was present for entire encounter. Juvencio Sanchez D.O. [facility] Work Phone: 1(808) 179-670405-19-2025 History of Present illness Narrative* Bandar Juares, CONIM - 06/24/2024 8:00 AM EDT Images from the original note were not included. HPI: Patient presents in office today for routine toenail care. Onychomycosis/Toenail Fungus under Podiatric consultations: Patient states that they have noticed changes in the appearance of the toenails for the past chronic The nails are thickened and discolored. This has not worsened with time. Patient does not have pain associated with the toenails. Patient sees Dr. Sanchez as his PCP, last visit 02/09/24. No other complaints. Exam: General Examination: GENERAL APPEARANCE: awake, aware of surroundings, in no acute distress. Vascular: DORSALIS PEDIS PULSE: 2/4, bilaterally . POSTERIOR TIBIAL PULSE: 2/4, bilaterally . TEMPERATURE GRADIENT: warm to cool . EDEMA: Mild to the ankle bilateral . CAPILLARY FILLING TIME(sec): capillary fill intact bilateral digits less than 3 secs. Neurologic: NEUROLOGIC light touch is intact to the plantar foot. Dermatologic: SKIN FINDINGS: Normal, varicosities to the bilateral lower extremity. HYPERKERATOSIS: sub 2nd, sub 5th MPJ right NAIL PATHOLOGY: digits 1-5 bilateral are Thickened, dystrophic, crumbly, elongated and with subungual debris SKIN PATHOLOGY: texture, turgor, hair growth, within normal limits . Orthopedic: FOOT MORPHOLOGY: Cavus. JOINT RANGE OF MOTION: Limited range of motion is noted to the lesser MPJs and digits bilateral . DEFORMITIES: Semi-rigid contracture right 2nd digit. There is residual contracture to the DIPJ, butimprovement in noted in the contracture to the PIPJ. There is widening between the right second andthird digits. Mild contracted form and these 2 through 4 left, 3 and 4 right . PAIN ELICITED WITH PALPATION OF: none PAIN ELICITED WITH ROM: none . MUSCLE STRENGTH 5/5 for all pedal groups tested. Assessments: Onychomycosis Bilateral foot pain Callous right foot Foot deformity Pes cavus Plan: 1. All mycotic and/or dystrophic nails were debrided in length and thickness by manual and mechanical means. 2. Advised patient of proper foot care to prevent any future complications including daily monitoring of the feet. 3. RTC: 9-12 weeks or as needed if problems arise as patient would like to continue to come in for routine nail care appointments to prevent future pain and problems developing from the overgrowth ofthe toenails. Callous: 1. Hyperkeratosis/porokeratosis as above noted was debrided. 2. Instructed patient on use of aperture pads or Silipos padding/toe spacers to prevent rubbing andcontinued development of the hyperkeratosis. 3. Also discussed use of moisturizing creams for overall increased hydration to the skin. 4. Discussed continued use of proper foot gear to avoid excess pressure over the callous site. documented in this encounterLiberty [id number] Evaluation note* Author Juvencio Sanchez [facility] HospitalAuthoredMay 2024 2:38pmThe above note written by ___Valencia Luna____ acting as human recorder, note dictated by Dr. Sal .I performed the above HPI, ROS, and Examination. I formulated and dictated the treatment plan and was present for entire encounter. Juvencio Sanchez D.O. [facility] Work Phone: 1(151) 886-839202-19-2025 Evaluation + Plan note Diagnostic Tests Pending * [facility] ([facility]) 03/27/24 [facility] 02-19-2025 Hospital Discharge instructions Patient Education 03/27/2024 08:09:31 Cancer Screening for Males Cancer Screening for Males A cancer screening is a test or exam that checks for cancer. Work with your health care provider tocreate a cancer screening schedule that protects your health. Who should have screening? All people who are male should be considered for screening of certain cancers, including colorectalcancer, prostate cancer, lung cancer, and skin cancer. Your health care provider may recommend screenings for other types of cancer if: You have had cancer before. You have a family member with cancer. You have genes that could increase the risk of cancer. You have risk factors for certain cancers, such as current or past use of tobacco products or beingoverweight. What are the benefits of screening? Cancer screening is done to look for cancer in the very early stages, before it spreads and becomesharder to treat and before you would start to notice symptoms. Finding cancer early improves the chances of successful treatment. It may save your life. When should I be screened for cancer? When you should be screened for cancer depends on: Your age. Your medical history and your family's medical history. Certain lifestyle factors, such as smoking or other use of tobacco products. Environmental exposure, such as to asbestos. How is screening done? Colorectal cancer Colorectal cancer screening looks for cancer or for growths called polyps that often form before cancer starts. Tests to look for cancer or polyps include: Colonoscopy or flexible sigmoidoscopy. For these procedures, a flexible tube with a small camera isinserted into the rectum. CT colonography. This test uses X-rays and a contrast dye to check the colon for polyps. Tests to look for cancer in the stool (feces) include: Guaiac-based fecal occult blood test (FOBT). This test can find blood in stool. It can be done at home with a kit. Fecal immunochemical test (FIT). This test can find blood in stool. For this test, you will need tocollect stool samples at home. Stool DNA test. This test looks for blood in stool and any changes in DNA that can lead to colon cancer. For this test, you will need to collect a stool sample at home and send it to a lab. All adults should have screenings starting at 45 years old and continuing through 75 years old. Formales 76 85 years old, the decision to be screened should be based on a person's preferences, life expectancy, overall health, and prior screening history. Your health care provider may recommend screening before 45 years old. You will have tests every 1 10 years, depending on your results and the type of screening test. People at increased risk should start screening at an earlier age. Talk withyour health care provider about which screening test is right for you and how often you should be screened. Prostate cancer Prostate cancer screening is done with blood tests and a digital rectal exam. During this exam, a health care provider uses a gloved finger to check prostate size. You may need to be screened for prostate cancer if: You have risk factors for prostate cancer, such as being an person or having a close family member with prostate cancer. You have had gene changes or a genetic condition that was passed on to you from a parent (inherited). These gene changes or genetic conditions include BRCA1 or BRCA2 gene mutations or Dinero syndrome. You have symptoms of prostate cancer, such as problems urinating or problems getting or keeping an erection (erectile dysfunction). When you have been screened for prostate cancer, future screening may be recommended based on the results of your blood tests. Prostate cancer screening for males with average risk may start at 50 years old. Males with risk factors may need to be screened earlier, at 40 45 years old. Talk with your health care provider aboutwhether screening is right for you and, if so, how often you should be screened. Lung cancer Lung cancer screening is done with a CT scan that looks for abnormal changes in the lungs. Discuss lung cancer screening with your health care provider if you are 50 80 years old and if any of the following apply to you: You currently smoke. You used to smoke heavily. You have a smoking history of 1 pack of cigarettes a day for 20 years or 2 packs a day for 10 years. You may need to be screened every year if you smoke heavily or if you used to smoke. Skin cancer Skin cancer screening is done by checking the skin for unusual moles or spots and any changes in existing moles. Your health care provider should check your skin for signs of skin cancer at every physical exam. You should check your skin every month and tell your health care provider right away if anything looks unusual. Males with a zcjjci-yvwi-gmhhcy risk for skin cancer may want to see a parking enforcement specialist (flagman) for an annual body check. Where to find more information [employer] Cancer Society: cancer.org Centers for Disease Control and Prevention: cdc.gov National Cancer [place]: cancer.gov Contact a health care provider if: You have concerns about any signs or symptoms of cancer. These may include: ?Skin problems. You may have: ?Moles of an unusual shape or color. ?Changes in existing moles. ?A sore on your skin that does not heal. ?Tiredness (fatigue) that does not go away. ?Losing weight without trying. ?Blood in your urine or stool. ?Problems with urination. You may have: ?Changes in urination habits. ?Painful urination. ?Painful ejaculation. ?Problems with coughing or breathing. These may include: ?Coughing or trouble breathing that does not go away. ?Coughing up blood. ?Frequent pain or cramping in your abdomen. This information is not intended to replace advice given to you by your health care provider. Make sure you discuss any questions you have with your health care provider. Document Revised: 01/31/2023 Document Reviewed: 08/15/2022 [employer] Patient Education 2023 [email or web address]. Follow Up Care 02/12/2024 13:13:28 With:MELISSA THORNTON, Akbar Bassett, URL Address: [facility] [address] [place] [address]- When: Unknown [facility] [place] 02-19-2025 NotePatient Education Oncology Cancer Screening for Males A cancer screening is a test or exam that checks for cancer. Work with your health care provider tocreate a cancer screening schedule that protects your health. Who should have screening? All people who are male should be considered for screening of certain cancers, including colorectalcancer, prostate cancer, lung cancer, and skin cancer. Your health care provider may recommend screenings for other types of cancer if: ??? You have had cancer before. ??? You have a family member with cancer. ??? You have genes that could increase the risk of cancer. ??? You have risk factors for certain cancers, such as current or past use of tobacco products or being overweight. What are the benefits of screening? Cancer screening is done to look for cancer in the very early stages, before it spreads and becomesharder to treat and before you would start to notice symptoms. Finding cancer early improves the chances of successful treatment. It may save your life. When should I be screened for cancer? When you should be screened for cancer depends on: ??? Your age. ??? Your medical history and your family's medical history. ??? Certain lifestyle factors, such as smoking or other use of tobacco products. ??? Environmental exposure, such as to asbestos. How is screening done? Colorectal cancer Colorectal cancer screening looks for cancer or for growths called polyps that often form before cancer starts. Tests to look for cancer or polyps include: ??? Colonoscopy or flexible sigmoidoscopy. For these procedures, a flexible tube with a small camera is inserted into the rectum. ??? CT colonography. This test uses X-rays and a contrast dye to check the colon for polyps. Tests to look for cancer in the stool (feces) include: ??? Guaiac-based fecal occult blood test (FOBT). This test can find blood in stool. It can be done at home with a kit. ??? Fecal immunochemical test (FIT). This test can find blood in stool. For this test, you will need to collect stool samples at home. ??? Stool DNA test. This test looks for blood in stool and any changes in DNA that can lead to colon cancer. For this test, you will need to collect a stool sample at home and send it to a lab. All adults should have screenings starting at 45 years old and continuing through 75 years old. Formales 76?85 years old, the decision to be screened should be based on a person's preferences, life expectancy, overall health, and prior screening history. Your health care provider may recommend screening before 45 years old. You will have tests every 1?10 years, depending on your results and the type of screening test. People at increased risk should start screening at an earlier age. Talk withyour health care provider about which screening test is right for you and how often you should be screened. Prostate cancer Prostate cancer screening is done with blood tests and a digital rectal exam. During this exam, a health care provider uses a gloved finger to check prostate size. You may need to be screened for prostate cancer if: ??? You have risk factors for prostate cancer, such as being an person or having aclose family member with prostate cancer. ??? You have had gene changes or a genetic condition that was passed on to you from a parent (inherited). These gene changes or genetic conditions include BRCA1 or BRCA2 gene mutations or Dinero syndrome. ??? You have symptoms of prostate cancer, such as problems urinating or problems getting or keepingan erection (erectile dysfunction). When you have been screened for prostate cancer, future screening may be recommended based on the results of your blood tests. Prostate cancer screening for males with average risk may start at 50 years old. Males with risk factors may need to be screened earlier, at 40?45 years old. Talk with your health care provider aboutwhether screening is right for you and, if so, how often you should be screened. Lung cancer Lung cancer screening is done with a CT scan that looks for abnormal changes in the lungs. Discuss lung cancer screening with your health care provider if you are 50?80 years old and if any of the following apply to you: ??? You currently smoke. ??? You used to smoke heavily. ??? You have a smoking history of 1 pack of cigarettes a day for 20 years or 2 packs a day for 10 years. You may need to be screened every year if you smoke heavily or if you used to smoke. Skin cancer Skin cancer screening is done by checking the skin for unusual moles or spots and any changes in existing moles. Your health care provider should check your skin for signs of skin cancer at every physical exam. You should check your skin every month and tell your health care provider right away if anything looks unusual. Males with a deeamm-boew-jclnhf risk for skin cancer may want to see a parking enforcement specialist (dermatologi (more content not included)...[facility]02-06-2025 Evaluation note* Diagnosis Onset Date Resolution Status Admit Date Anemia of renal disease acuteFebruary 2024 1:40pmBence Long proteinacuteFebruary 2024 1:40pm CKD (chronic kidney disease) stage 3, GFR 30-59 ml/minacuteFebruary 2024 1:40pmProteinuriaacuteFebruary 2024 1:40pm [facility] Work Phone: 1(880) 356-405002-06-2025 Evaluation note* Diagnosis Onset Date Resolution Status Admit Date Anemia of renal disease acuteFebruary 2024 1:40pmBence Long proteinacuteFebruary 2024 1:40pm CKD (chronic kidney disease) stage 3, GFR 30-59 ml/minacuteFebruary 2024 1:40pmProteinuriaacuteFebruary 2024 1:40pmCKD (chronic kidney disease) stage 3, GFR 30-59 ml/minacuteApril 2024 1:42pmHyperlipidemiaacuteApril 2024 1:42pmHypertensionacuteApril 2024 1:42pmIrregular heart beat acuteApril 2024 1:42pmPersistent atrial fibrillationacuteApril 2024 1:42pm [facility] Work Phone: 1(492) 146-443802-06-2025 Evaluation note* Diagnosis Onset Date Resolution Status Admit Date Anemia of renal disease acuteFebruary 2024 1:40pmBence Long proteinacuteFebruary 2024 1:40pm CKD (chronic kidney disease) stage 3, GFR 30-59 ml/minacuteFebruary 2024 1:40pmProteinuriaacuteFebruary 2024 1:40pmCKD (chronic kidney disease) stage 3, GFR 30-59 ml/minacuteApril 2024 1:42pmHyperlipidemiaacuteApril 2024 1:42pmHypertensionacuteApril 2024 1:42pmIrregular heart beat acuteApril 2024 1:42pmPersistent atrial fibrillationacuteApril 2024 1:42pmAcute coughacuteMay 2024 2:17pmBody achesacuteMay 2024 2:17pm Persistent atrial fibrillationacuteMay 2024 2:17pm [facility] Work Phone: 1([phone]) 651-945202-06-2025 [facility] [place] [address] Cancer Center Note Signed Patient: Indiana Hines MR#: [id number] : 1945 Acct:[id number] Age/Sex: 78 / M Type: REG AMB Date of Service: 03/14/24 Copies to: Juvencio Sanchez,DO~ Assessment & Plan A/P (1) Bence Long protein: (2) Proteinuria: (3) Anemia of renal disease: (4) CKD (chronic kidney disease) stage 3, GFR 30-59 ml/min: Plan Mark is a 78-year-old nice gentleman was referred by Dr. Mireya Pichardo from nephrology to our hematology clinic for evaluation and management of new Bence- Long proteinuria. see HPI for complete details. 03/14/24: Patient is here for results of the BMBx, Results of the skeletal bone survey andlabs and further planning of his care and [...] biopsy and aspirate on 02/27/2024 and the resultsrevealed: Normocellular bone marrow for age in the [...] This could explain the inflammatory cells and polytypicplasma cellsseen in the bone marrow. Plan: Follow observation with repeat CBC, CMP myeloma labs in 6 months and see him then. Patient Instructions: myeloma labs,cbc,cmp in 6 months return in 6 months CHEMO PLAN No Active Chemotherapy History of Present Illness HPI Mark is a 78-year-old nice gentleman was referred by Dr. Mireya Pichardo from nephrology to our hematology clinic for evaluation and management of new Bence- Long proteinuria. Mr. Hines has a history of chronic kidney disease stage II/III with intermittentAKI. Serum creatinine ranges from 1.2-1.5. He has multiple joint osteoarthritis as well. He has a longstanding. Managedby PPI and history of A- fib underwent cardioversion in July 2023. He is on amiodarone for rhythm control and Xarelto for CVA prophylaxis. He also sees urology for bladder cancer for which she had a cystoscopy in September [address] [facility]. He was referred to our hematology clinic because Dr. Mireya Pichardo ordered urinary proteins which revealed presence of Bence-Long proteinuria. His proteinuria has could be due to his hypertensive nephrosclerosis and the prediabetes per himbut was sent to us forfurther evaluation likely with a bone marrow biopsy. Labs on 12/15/2023 revealed normal CBC except for hemoglobin of 12.5 with 0.9 absolute lymphocyte count. Creatinine is 1.41 calcium of 9.1. Iron studies were normal B12 and folate were normal LFTs were normal except for alk phos slightly elevated of 138. As urinary immunofixation revealed Bence-Long protein present. Serum immunoglobulins IgG and IgA and IgM were normal. The serum immunofixation revealed that cannot rule out presence of monoclonal protein at this point. The serum free kappa light chain was slightly elevated 23.1 and the lambda was normal at 14 and the kappa/lambda ratio was normal 1.65. Therefore patient was referred to hematology for our opinion regarding the presence of Bence-Long proteinuria and rule out amyloidosis and rule out multiple myeloma as an etiology for his chronic renal insufficiency. 03/14/24: Patient is here for results of the BMBx, Results of the skeletal bone survey andlabs and further planning of his care and [...] biopsy and aspirate on 02/27/2024 and the resultsrevealed: Normocellular bone marrow for age in the [...] This could explain the inflammatory cells and polytypicplasma cellsseen in the bone marrow. Intake Vitals/Pain Assessment 03/14/24 13:51 Height 6 ft 1 in Weight 117.027 kg BMI 34.0 Body Fat % 53.62 BP 149/75 H Blood Pressure Location Rt brachial Position Sitting Pulse 60 Pulse Source NIBP Respiration 18 Pulse Oximetry (%) 99 Oxygen Delivery Method room air Are you having pain? No Intake Visit Reasons: Follow Up after Biopsy Accompanied by: Spouse Allergies nafcillin Adverse Reaction (Severe, Verified 03/14/24 13:53) Unknown Reaction [place] Home Medications - Last Reconciled 03/14/24 by MAIK Lang acetaminophen ER (Tylenol Arthritis Pain) 2 tabs PO Q8HR amiodarone 200 mg PO DAILY 30 days amlodipine 10 mg PO DAILY 90 days ascorbate calcium (vitamin C) 500 mg PO DAILY cholecalciferol (vitamin D3) 125 mcg PO DAILY coenzyme Q10 (Co Q-10) 100 mg PO DAILY diphenhydramine-acetaminophen 25-500 mg (Tylenol PM Extra Strength) 1 tab PO QHSPRN hydrocodone-acetaminophen 5-325 mg 1 tab PO Q6HR PRN 3 days lisinopril 5 mg PO DAILY metoprolol succinate ER 25 mg PO DAILY 30 days minocycline 100 mg PO DAILY etxgobtl-lxy-swoal-vit K-lycop 400-20-370 mcg (Men's 50 Plus Multivitamin) 1 tabPO DAILY omega 7-azo-azy-fish oil 1,200 (144-216) mg (Fish Oil) 1 cap PO DAILY omeprazole 40 mg PO DAILY rivaroxaban (Xarelto) 20 mg PO QPM 90 days rosuvastatin 10 mg PO DAILY zinc acetate 50 mg PO DAILY Gastrointestinal Is the patient taking opioids for pain control?: Yes Bowel Protocol for Opioids Given: Yes Bowel Pattern: Regular Bowel Movement Aid(s): None Falls Fall Precaution Measures Taken: Patient in chair Nurse's Note: Patient is here for a 1 month follow up with imaging and bone marrow biopsy for review. [facility] Medical History Medical History Hypertension Hyperlipidemia Fatigue Hx of pilonidal cyst 1990 [place] kid w cr kid I-IV Secondary hyperparathyroidism CKD (chronic kidney disease) stage 3, GFR 30-59 ml/min Neuropathy Hammer toe of right foot GERD (gastroesophageal reflux disease) Elevated PSA Herniated disc 1978 back Bladder cancer Surgical History Surgical History History of neck surgery History of colonoscopy 2006 History of total right knee replacement 2013 History of left knee replacement 1999 History of total hip replacement 08/13/2014 - right hip- [facility]- CC repaired 2015 Family History Family History Father 94 yrs Cardiomyopathy Mother 94 yrs Diabetes Brother Atrial fibrillation Sister No problems noted. Social History Social History Smoking status: Never smoker Nicotine containing products detail: cigarette one every month or so Within the past year, how often did you have a drink containing alcohol: monthly or less Within the past year, how many standard drinks containing alcohol did you have on a typical day: 1 or 2 Within the past year, how often did you have six or more drinks on one occasion: never AUDIT-C Alcohol total score: 1 AUDIT-C Alcohol score interpretation: A score less than 4 is consistent with normal alcohol consumption. In the past 12 months, have you used illegal drugs or prescription drugs for non-medical reasons?: No Previous occupational history: Current: Retired Highest level of school completed/degree received: high school graduate Review of Systems ROS Details: All systems reviewed & no additional complaints except as documented General: Patient denied fevers, chills, rigors, weight loss or loss of appetite. Head: Patient denied any headaches or vision changes Thoracic: Patient denied any shortness of breath or cough or hemoptysis Cardiovascular patient denies any chest pain or leg edema GI: Patient denies any nausea vomiting rectal bleed diarrhea : Patient denied gross hematuria. Hematology: Patient denied any bleeding from any source. No easy bruising. Lymphatic: No enlarged LAP anywhere. Skin: Normal skin exam no rashes or suspicious lesions. Neurological patient denies any headache or dizziness or focal weakness or sensory changes. Physical Exam EXAM HEENT normocephalic atraumatic pupils are equal and round Neck supple without thyromegaly or any cervical lymphadenopathy. Chest clear to auscultation bilaterally without wheezing crackles or rhonchi Heart regular rate and rhythm S1-S2 without murmurs gallop or rub Abdomen soft nontender not distended without hepatosplenomegaly or masses clinically Extremities no edema of the lower extremities Skin without any suspicious rashes Lymphatic system no lymphadenopathy in the cervical area axillary areas or inguinal areas bilaterally Neurological exam patient is cooperative alert and oriented x3 no focal deficits. Results - [facility] ([facility]c) LAB RESULTS Corrected WBC 6.3 X10E3/uL (4.1-10.5) 02/27/24 09: 5 Hgb 12.1 g/dL (13.0-17.0) L 02/27/24 09: 5 Hct 36.5 % (38.8-50.0) L 02/27/24:02/27/24 MCV 90.0 fl (83.5-101) 02/27/24 09:02/27/24 RDW 15.2 % (12.0-14.8) H 02/27/24 09:02/27/24 Plt Count 200 x10E3/uL (150-450) 02/27/24 09:25 Social Determinants of Health Screening SDOH last assessed in clinic: 03/14/24 Will the patient participate in the screening?: Yes Do you worry about having a steady place to live?: No In the past 12 months, have you had to go without electric, gas, oil, or water in your home?: No Have you or anyone in your house had to go without enough food to eat?: No Has lack of reliable transportation kept you from medical appointments or from doing things needed for daily living?: No Has anyone in your support network made you feel unsafe for any reason?: No Does the patient want assistance with any of the above?: No Dictated By: Altaf Das MD DD/ [id number] Signed By: 03/14/24 1415 [facility]11-14-2024 Evaluation note* Author Juvencio Sanchez [facility] 2023 4:34pmI performed the above HPI, ROS, and Examination. I formulated and dictated the treatment plan and was present for entire encounter. Juvencio Sanchez D.O. [facility] Work Phone: [phone]) 847-835911-13-2024 History of Present illness Narrative* Bandar Juares DPM - 12/20/2023 8:15 AM EST Images from the original note were not included. HPI: Patient presents in office today for routine toenail care. Onychomycosis/Toenail Fungus under Podiatric consultations: Patient states that they have noticed changes in the appearance of the toenails for the past chronic The nails are thickened and discolored. This has not worsened with time. Patient does not have pain associated with the toenails. Patient sees Dr. Sanchez as his PCP, last visit 11/09/23. No other complaints. Exam: General Examination: GENERAL APPEARANCE: awake, aware of surroundings, in no acute distress. Vascular: DORSALIS PEDIS PULSE: 2/4, bilaterally . POSTERIOR TIBIAL PULSE: 2/4, bilaterally . TEMPERATURE GRADIENT: warm to cool . EDEMA: Mild to the ankle bilateral . CAPILLARY FILLING TIME(sec): capillary fill intact bilateral digits less than 3 secs. Neurologic: NEUROLOGIC light touch is intact to the plantar foot. Dermatologic: SKIN FINDINGS: Normal, varicosities to the bilateral lower extremity. HYPERKERATOSIS: sub 2nd, sub 5th MPJ right NAIL PATHOLOGY: digits 1-5 bilateral are Thickened, dystrophic, crumbly, elongated and with subungual debris SKIN PATHOLOGY: texture, turgor, hair growth, within normal limits . Orthopedic: FOOT MORPHOLOGY: Rectus . JOINT RANGE OF MOTION: Limited range of motion is noted to the lesser MPJs and digits bilateral . DEFORMITIES: Semi-rigid contracture right 2nd digit. There is residual contracture to the DIPJ, butimprovement in noted in the contracture to the PIPJ. There is widening between the right second andthird digits. Mild contracted form and these 2 through 4 left, 3 and 4 right . PAIN ELICITED WITH PALPATION OF: none PAIN ELICITED WITH ROM: none . MUSCLE STRENGTH 5/5 for all pedal groups tested. Assessments: Onychomycosis Bilateral foot pain Callous right foot Plan: 1. All mycotic and/or dystrophic nails were debrided in length and thickness by manual and mechanical means. 2. Advised patient of proper foot care to prevent any future complications including daily monitoring of the feet. 3. RTC: 9-12 weeks or as needed if problems arise as patient would like to continue to come in for routine nail care appointments to prevent future pain and problems developing from the overgrowth ofthe toenails. Callous: 1. Hyperkeratosis/porokeratosis as above noted was debrided. 2. Instructed patient on use of aperture pads or Silipos padding/toe spacers to prevent rubbing andcontinued development of the hyperkeratosis. 3. Also discussed use of moisturizing creams for overall increased hydration to the skin. 4. Discussed continued use of proper foot gear to avoid excess pressure over the callous site. documented in this encounterLiberty [id number] Hospital Discharge instructions Patient Education 12/11/2023 10:28:00 Bladder Cancer Bladder Cancer Bladder cancer is a condition where abnormal tissue (a tumor) grows in the bladder. The bladder is the organ that holds urine. Two tubes (ureters) carry urine from the kidneys to the bladder. The bladder wall is made of layers of tissue. Cancer that spreads through these layers of the bladder wall becomes more difficult to treat. What increases the risk? The following factors may make you more likely to develop this condition: Smoking. Working where there are risks (occupational exposures), such as working with rubber, leather, clothing fabric, dyes, chemicals, or paint. Being 55 years of age or older. Being male. Having long-term bladder inflammation. Having a history of cancer. This includes: ?A family history of bladder cancer. ?Having had bladder cancer before. ?Having had certain treatments for cancer before, such as: ?Medicines to kill cancer cells (chemotherapy). ?Strong X-ray beams or high-energy capsules to kill cancer cells and shrink tumors (radiation therapy). Having been exposed to arsenic. This is a poisonous substance. What are the signs or symptoms? Early symptoms of this condition include: Blood in your urine. Pain when urinating. Infections of your urinary system (urinary tract infections or UTIs) that happen often. Having to urinate sooner or more often than normal. Late symptoms of this condition include: Not being able to urinate. Pain on one side of your lower back. Loss of appetite. Weight loss. Tiredness (fatigue). Swelling in your feet. Bone pain. How is this diagnosed? This condition is diagnosed based on: Your medical history. A physical exam. Lab tests, such as urine tests. Imaging tests. Your symptoms. You may also have other tests or procedures, such as: A cystoscopy. This involves putting a narrow tube into your urethra. The urethra is the organ that carries urine from your bladder to the outside of your body. This procedure is done to view the lining of your bladder for tumors. A biopsy. This involves removing a tissue sample to look at under a microscope to check for cancer. Blood tests or imaging tests may be needed. These show how far into the bladder wall cancer has grown, and if cancer has spread to any other parts of your body. Tests may include: CT scan. MRI. Bone scan. X-ray. How is this treated? Your health care provider may recommend one or more types of treatment based on the stage of your cancer. The most common treatments are: Surgery to remove the cancer. Types of surgeries include: ?Removing a tumor on the inside wall of the bladder (transurethral resection). ?Removing the bladder (cystectomy). Radiation therapy. This is often combined with chemotherapy. Chemotherapy. Immunotherapy. This uses medicines to help your body's disease-fighting system (immune system) destroy cancer cells. Follow these instructions at home: Take kwfw-emb-bkkzbjr and prescription medicines only as told by your health care provider. If you were prescribed an antibiotic medicine, take it as told by your health care provider. Do notstop using the antibiotic even if you start to feel better. Eat a healthy diet. Some treatments might affect your appetite. Do not use any products that contain nicotine or tobacco. These products include cigarettes, chewing tobacco, and vaping devices, such as e-cigarettes. If you need help quitting, ask your health careprovider. Consider joining a support group. This may help you learn to deal with the stress of having bladdercancer. Tell your cancer care team if you develop side effects. Your team may be able to recommend ways to get relief. Keep all follow-up visits. This is important. Where to find more information Canadian Cancer Society (ACS): cancer.org National Cancer [place] (NCI): cancer.gov Contact a health care provider if: You have symptoms of a UTI. These include: ?Fever. ?Chills. ?Weakness. ?Muscle aches. ?Pain in your abdomen. ?Urge to urinate that is stronger and happens more often than normal. ?Burning in the bladder or urethra when you urinate. Get help right away if: There is blood in your urine. You cannot urinate. You have severe pain or other symptoms that do not go away. Summary Bladder cancer is a condition where tumors grow in the bladder. Diagnosis is based on your medical history, a physical exam, lab tests, imaging tests, and your symptoms. Your health care provider may recommend one or more types of treatment based on the stage of your cancer. Consider joining a support group. This may help you learn to deal with the stress of having bladdercancer. This information is not intended to replace advice given to you by your health care provider. Make sure you discuss any questions you have with your health care provider. Document Revised: 01/03/2022 Document Reviewed: 01/03/2022 [employer] Patient Education 2023 [email or web address]. Follow Up Care 11/03/2023 10:41:00 With:MELISSA THORNTON, Akbar Bassett, URL Address: [address] [place] [id number]- When: Unknown Comments:cysto [facility] 11-04-2024 NotePatient Education Oncology Bladder Cancer Bladder cancer is a condition where abnormal tissue (a tumor) grows in the bladder. The bladder is the organ that holds urine. Two tubes (ureters) carry urine from the kidneys to the bladder. The bladder wall is made of layers of tissue. Cancer that spreads through these layers of the bladder wall becomes more difficult to treat. What increases the risk? The following factors may make you more likely to develop this condition: ??? Smoking. ??? Working where there are risks (occupational exposures), such as working with rubber, leather, clothing fabric, dyes, chemicals, or paint. ??? Being 55 years of age or older. ??? Being male. ??? Having long-term bladder inflammation. ??? Having a history of cancer. This includes: ? A family history of bladder cancer. ? Having had bladder cancer before. ? Having had certain treatments for cancer before, such as: ? Medicines to kill cancer cells (chemotherapy). ? Strong X-ray beams or high-energy capsules to kill cancer cells and shrink tumors (radiation therapy). ??? Having been exposed to arsenic. This is a poisonous substance. What are the signs or symptoms? Early symptoms of this condition include: ??? Blood in your urine. ??? Pain when urinating. ??? Infections of your urinary system (urinary tract infections or UTIs) that happen often. ??? Having to urinate sooner or more often than normal. Late symptoms of this condition include: ??? Not being able to urinate. ??? Pain on one side of your lower back. ??? Loss of appetite. ??? Weight loss. ??? Tiredness (fatigue). ??? Swelling in your feet. ??? Bone pain. How is this diagnosed? This condition is diagnosed based on: ??? Your medical history. ??? A physical exam. ??? Lab tests, such as urine tests. ??? Imaging tests. ??? Your symptoms. You may also have other tests or procedures, such as: ??? A cystoscopy. This involves putting a narrow tube into your urethra. The urethra is the organ that carries urine from your bladder to the outside of your body. This procedure is done to view the lining of your bladder for tumors. ??? A biopsy. This involves removing a tissue sample to look at under a microscope to check for cancer. Blood tests or imaging tests may be needed. These show how far into the bladder wall cancer has grown, and if cancer has spread to any other parts of your body. Tests may include: ??? CT scan. ??? MRI. ??? Bone scan. ??? X-ray. How is this treated? Your health care provider may recommend one or more types of treatment based on the stage of your cancer. The most common treatments are: ??? Surgery to remove the cancer. Types of surgeries include: ? Removing a tumor on the inside wall of the bladder (transurethral resection). ? Removing the bladder (cystectomy). ??? Radiation therapy. This is often combined with chemotherapy. ??? Chemotherapy. ??? Immunotherapy. This uses medicines to help your body's disease-fighting system (immune system) destroy cancer cells. Follow these instructions at home: ??? Take ktzt-wkv-noqguaf and prescription medicines only as told by your health care provider. ??? If you were prescribed an antibiotic medicine, take it as told by your health care provider. Donot stop using the antibiotic even if you start to feel better. ??? Eat a healthy diet. Some treatments might affect your appetite. ??? Do not use any products that contain nicotine or tobacco. These products include cigarettes, chewing tobacco, and vaping devices, such as e-cigarettes. If you need help quitting, ask your health care provider. ??? Consider joining a support group. This may help you learn to deal with the stress of having bladder cancer. ??? Tell your cancer care team if you develop side effects. Your team may be able to recommend waysto get relief. ??? Keep all follow-up visits. This is important. Where to find more information ??? Canadian Cancer Society (ACS): cancer.org ??? National Cancer [place] (NCI): cancer.gov Contact a health care provider if: ??? You have symptoms of a UTI. These include: ? Fever. ? Chills. ? Weakness. ? Muscle aches. ? Pain in your abdomen. ? Urge to urinate that is stronger and happens more often than normal. ? Burning in the bladder or urethra when you urinate. Get help right away if: ??? There is blood in your urine. ??? You cannot urinate. ??? You have severe pain or other symptoms that do not go away. Summary ??? Bladder cancer is a condition where tumors grow in the bladder. ??? Diagnosis is based on your medical history, a physical exam, lab tests, imaging tests, and yoursymptoms. ??? Your health care provider may recommend one or more types of treatment based on the stage of your cancer. ??? Consider joining a support group. This may help you learn to deal with the stress of having bladder cancer. This information is n (more content not included)...[facility] 12-11-2023 NotePatient Education Oncology Bladder Cancer Bladder cancer is a condition where abnormal tissue (a tumor) grows in the bladder. The bladder is the organ that holds urine. Two tubes (ureters) carry urine from the kidneys to the bladder. The bladder wall is made of layers of tissue. Cancer that spreads through these layers of the bladder wall becomes more difficult to treat. What increases the risk? The following factors may make you more likely to develop this condition: ??? Smoking. ??? Working where there are risks (occupational exposures), such as working with rubber, leather, clothing fabric, dyes, chemicals, or paint. ??? Being 55 years of age or older. ??? Being male. ??? Having long-term bladder inflammation. ??? Having a history of cancer. This includes: ? A family history of bladder cancer. ? Having had bladder cancer before. ? Having had certain treatments for cancer before, such as: ? Medicines to kill cancer cells (chemotherapy). ? Strong X-ray beams or high-energy capsules to kill cancer cells and shrink tumors (radiation therapy). ??? Having been exposed to arsenic. This is a poisonous substance. What are the signs or symptoms? Early symptoms of this condition include: ??? Blood in your urine. ??? Pain when urinating. ??? Infections of your urinary system (urinary tract infections or UTIs) that happen often. ??? Having to urinate sooner or more often than normal. Late symptoms of this condition include: ??? Not being able to urinate. ??? Pain on one side of your lower back. ??? Loss of appetite. ??? Weight loss. ??? Tiredness (fatigue). ??? Swelling in your feet. ??? Bone pain. How is this diagnosed? This condition is diagnosed based on: ??? Your medical history. ??? A physical exam. ??? Lab tests, such as urine tests. ??? Imaging tests. ??? Your symptoms. You may also have other tests or procedures, such as: ??? A cystoscopy. This involves putting a narrow tube into your urethra. The urethra is the organ that carries urine from your bladder to the outside of your body. This procedure is done to view the lining of your bladder for tumors. ??? A biopsy. This involves removing a tissue sample to look at under a microscope to check for cancer. Blood tests or imaging tests may be needed. These show how far into the bladder wall cancer has grown, and if cancer has spread to any other parts of your body. Tests may include: ??? CT scan. ??? MRI. ??? Bone scan. ??? X-ray. How is this treated? Your health care provider may recommend one or more types of treatment based on the stage of your cancer. The most common treatments are: ??? Surgery to remove the cancer. Types of surgeries include: ? Removing a tumor on the inside wall of the bladder (transurethral resection). ? Removing the bladder (cystectomy). ??? Radiation therapy. This is often combined with chemotherapy. ??? Chemotherapy. ??? Immunotherapy. This uses medicines to help your body's disease-fighting system (immune system) destroy cancer cells. Follow these instructions at home: ??? Take epvk-lpw-ydqjwpb and prescription medicines only as told by your health care provider. ??? If you were prescribed an antibiotic medicine, take it as told by your health care provider. Donot stop using the antibiotic even if you start to feel better. ??? Eat a healthy diet. Some treatments might affect your appetite. ??? Do not use any products that contain nicotine or tobacco. These products include cigarettes, chewing tobacco, and vaping devices, such as e-cigarettes. If you need help quitting, ask your health care provider. ??? Consider joining a support group. This may help you learn to deal with the stress of having bladder cancer. ??? Tell your cancer care team if you develop side effects. Your team may be able to recommend waysto get relief. ??? Keep all follow-up visits. This is important. Where to find more information ??? Canadian Cancer Society (ACS): cancer.org ??? National Cancer [place] (NCI): cancer.gov Contact a health care provider if: ??? You have symptoms of a UTI. These include: ? Fever. ? Chills. ? Weakness. ? Muscle aches. ? Pain in your abdomen. ? Urge to urinate that is stronger and happens more often than normal. ? Burning in the bladder or urethra when you urinate. Get help right away if: ??? There is blood in your urine. ??? You cannot urinate. ??? You have severe pain or other symptoms that do not go away. Summary ??? Bladder cancer is a condition where tumors grow in the bladder. ??? Diagnosis is based on your medical history, a physical exam, lab tests, imaging tests, and yoursymptoms. ??? Your health care provider may recommend one or more types of treatment based on the stage of your cancer. ??? Consider joining a support group. This may help you learn to deal with the stress of having bladder cancer. This information is n (more content not included)...[facility] 11-21-2023 Evaluation note* Diagnosis Onset Date Resolution Status Admit Date CKD (chronic kidney disease) stage 3, GF R 30-59 ml/min acuteOctober 2023 1:14pmHyperlipidemiaacuteOctober 2023 1:14pm HypertensionacuteOctober 2023 1:14pmIrregular heart beatacuteOctober 2023 1:14pmPersistent atrial fibrillationacuteOctober 2023 1:14pm [facility] Work Phone: [phone]) 408-486610-15-2024 Evaluation note* Diagnosis Onset Date Resolution Status Admit Date CKD (chronic kidney disease) stage 3, GF R 30-59 ml/min acuteOctober 2023 1:14pmHyperlipidemiaacuteOctober 2023 1:14pm HypertensionacuteOctober 2023 1:14pmIrregular heart beatacuteOctalbert [facility]. [facility] 2023 1:14pmPersistent atrial fibrillationacuteOctalbert [facility]. [facility] 2023 1:14pmAnemia of renal diseaseacuteKosair [facility]'S Hospital 2023 8:56amBladder canceracuteDecember 18, 2023 8:56amCKD (chronic kidney disease) stage 3, GFR 30-59 ml/minacuteKosair Children'S Hospital 2023 8:56amHyperlipidemiaacuteNov[facility]20[facility] 8:56amHypertensive chronic kidney disease with stage 1 through stage 4 chronic kiacuteDecember 18, 2023 8:56amHyperuricemiaacuteDecember 18, 2023 8:56amPrediabetesacute December 18, 2023 8:56amProteinuriaacuteNov[facility]20[facility] 8:56amSecondary hyperparathyroidismacuteDecember 18, 2023 8:56am [facility] Work Phone: 1(693) 839-172110-14-2024 Hospital Discharge instructions Patient Education 11/20/2023 09:49:31 Bladder Cancer Bladder Cancer Bladder cancer is a condition where abnormal tissue (a tumor) grows in the bladder. The bladder is the organ that holds urine. Two tubes (ureters) carry urine from the kidneys to the bladder. The bladder wall is made of layers of tissue. Cancer that spreads through these layers of the bladder wall becomes more difficult to treat. What increases the risk? The following factors may make you more likely to develop this condition: Smoking. Working where there are risks (occupational exposures), such as working with rubber, leather, clothing fabric, dyes, chemicals, or paint. Being 55 years of age or older. Being male. Having long-term bladder inflammation. Having a history of cancer. This includes: ?A family history of bladder cancer. ?Having had bladder cancer before. ?Having had certain treatments for cancer before, such as: ?Medicines to kill cancer cells (chemotherapy). ?Strong X-ray beams or high-energy capsules to kill cancer cells and shrink tumors (radiation therapy). Having been exposed to arsenic. This is a poisonous substance. What are the signs or symptoms? Early symptoms of this condition include: Blood in your urine. Pain when urinating. Infections of your urinary system (urinary tract infections or UTIs) that happen often. Having to urinate sooner or more often than normal. Late symptoms of this condition include: Not being able to urinate. Pain on one side of your lower back. Loss of appetite. Weight loss. Tiredness (fatigue). Swelling in your feet. Bone pain. How is this diagnosed? This condition is diagnosed based on: Your medical history. A physical exam. Lab tests, such as urine tests. Imaging tests. Your symptoms. You may also have other tests or procedures, such as: A cystoscopy. This involves putting a narrow tube into your urethra. The urethra is the organ that carries urine from your bladder to the outside of your body. This procedure is done to view the lining of your bladder for tumors. A biopsy. This involves removing a tissue sample to look at under a microscope to check for cancer. Blood tests or imaging tests may be needed. These show how far into the bladder wall cancer has grown, and if cancer has spread to any other parts of your body. Tests may include: CT scan. MRI. Bone scan. X-ray. How is this treated? Your health care provider may recommend one or more types of treatment based on the stage of your cancer. The most common treatments are: Surgery to remove the cancer. Types of surgeries include: ?Removing a tumor on the inside wall of the bladder (transurethral resection). ?Removing the bladder (cystectomy). Radiation therapy. This is often combined with chemotherapy. Chemotherapy. Immunotherapy. This uses medicines to help your body's disease-fighting system (immune system) destroy cancer cells. Follow these instructions at home: Take ofdf-faj-ivozhnj and prescription medicines only as told by your health care provider. If you were prescribed an antibiotic medicine, take it as told by your health care provider. Do notstop using the antibiotic even if you start to feel better. Eat a healthy diet. Some treatments might affect your appetite. Do not use any products that contain nicotine or tobacco. These products include cigarettes, chewing tobacco, and vaping devices, such as e-cigarettes. If you need help quitting, ask your health careprovider. Consider joining a support group. This may help you learn to deal with the stress of having bladdercancer. Tell your cancer care team if you develop side effects. Your team may be able to recommend ways to get relief. Keep all follow-up visits. This is important. Where to find more information Canadian Cancer Society (ACS): cancer.org National Cancer [place] (NCI): cancer.gov Contact a health care provider if: You have symptoms of a UTI. These include: ?Fever. ?Chills. ?Weakness. ?Muscle aches. ?Pain in your abdomen. ?Urge to urinate that is stronger and happens more often than normal. ?Burning in the bladder or urethra when you urinate. Get help right away if: There is blood in your urine. You cannot urinate. You have severe pain or other symptoms that do not go away. Summary Bladder cancer is a condition where tumors grow in the bladder. Diagnosis is based on your medical history, a physical exam, lab tests, imaging tests, and your symptoms. Your health care provider may recommend one or more types of treatment based on the stage of your cancer. Consider joining a support group. This may help you learn to deal with the stress of having bladdercancer. This information is not intended to replace advice given to you by your health care provider. Make sure you discuss any questions you have with your health care provider. Document Revised: 01/03/2022 Document Reviewed: 01/03/2022 [employer] Patient Education 2023 [email or web address]. Follow Up Care 11/03/2023 10:32:40 With:JOHN Haywood APRN, Rose Presley, TRAN, URL Address: When: Unknown Comments:1 wk bcg 2/3 half dose [facility] 10-14-2024 NotePatient Education Oncology Bladder Cancer Bladder cancer is a condition where abnormal tissue (a tumor) grows in the bladder. The bladder is the organ that holds urine. Two tubes (ureters) carry urine from the kidneys to the bladder. The bladder wall is made of layers of tissue. Cancer that spreads through these layers of the bladder wall becomes more difficult to treat. What increases the risk? The following factors may make you more likely to develop this condition: ? Smoking. ? Working where there are risks (occupational exposures), such as working with rubber, leather, clothing fabric, dyes, chemicals, or paint. ? Being 55 years of age or older. ? Being male. ? Having long-term bladder inflammation. ? Having a history of cancer. This includes: ? A family history of bladder cancer. ? Having had bladder cancer before. ? Having had certain treatments for cancer before, such as: ? Medicines to kill cancer cells (chemotherapy). ? Strong X-ray beams or high-energy capsules to kill cancer cells and shrink tumors (radiation therapy). ? Having been exposed to arsenic. This is a poisonous substance. What are the signs or symptoms? Early symptoms of this condition include: ? Blood in your urine. ? Pain when urinating. ? Infections of your urinary system (urinary tract infections or UTIs) that happen often. ? Having to urinate sooner or more often than normal. Late symptoms of this condition include: ? Not being able to urinate. ? Pain on one side of your lower back. ? Loss of appetite. ? Weight loss. ? Tiredness (fatigue). ? Swelling in your feet. ? Bone pain. How is this diagnosed? This condition is diagnosed based on: ? Your medical history. ? A physical exam. ? Lab tests, such as urine tests. ? Imaging tests. ? Your symptoms. You may also have other tests or procedures, such as: ? A cystoscopy. This involves putting a narrow tube into your urethra. The urethra is the organ that carries urine from your bladder to the outside of your body. This procedure is done to view the lining of your bladder for tumors. ? A biopsy. This involves removing a tissue sample to look at under a microscope to check for cancer. Blood tests or imaging tests may be needed. These show how far into the bladder wall cancer has grown, and if cancer has spread to any other parts of your body. Tests may include: ? CT scan. ? MRI. ? Bone scan. ? X-ray. How is this treated? Your health care provider may recommend one or more types of treatment based on the stage of your cancer. The most common treatments are: ? Surgery to remove the cancer. Types of surgeries include: ? Removing a tumor on the inside wall of the bladder (transurethral resection). ? Removing the bladder (cystectomy). ? Radiation therapy. This is often combined with chemotherapy. ? Chemotherapy. ? Immunotherapy. This uses medicines to help your body's disease-fighting system (immune system) destroy cancer cells. Follow these instructions at home: ? Take rvsv-dwg-mkmftdq and prescription medicines only as told by your health care provider. ? If you were prescribed an antibiotic medicine, take it as told by your health care provider. Do not stop using the antibiotic even if you start to feel better. ? Eat a healthy diet. Some treatments might affect your appetite. ? Do not use any products that contain nicotine or tobacco. These products include cigarettes, chewing tobacco, and vaping devices, such as e-cigarettes. If you need help quitting, ask your health care provider. ? Consider joining a support group. This may help you learn to deal with the stress of having bladder cancer. ? Tell your cancer care team if you develop side effects. Your team may be able to recommend ways to get relief. ? Keep all follow-up visits. This is important. Where to find more information ? Canadian Cancer Society (ACS): cancer.org ? National Cancer [place] (NCI): cancer.gov Contact a health care provider if: ? You have symptoms of a UTI. These include: ? Fever. ? Chills. ? Weakness. ? Muscle aches. ? Pain in your abdomen. ? Urge to urinate that is stronger and happens more often than normal. ? Burning in the bladder or urethra when you urinate. Get help right away if: ? There is blood in your urine. ? You cannot urinate. ? You have severe pain or other symptoms that do not go away. Summary ? Bladder cancer is a condition where tumors grow in the bladder. ? Diagnosis is based on your medical history, a physical exam, lab tests, imaging tests, and your symptoms. ? Your health care provider may recommend one or more types of treatment based on the stage of yourcancer. ? Consider joining a support group. This may help you learn to deal with the stress of having bladder cancer. This information is not intended to replace advice given to you by your health care provider. Make sure you discuss any q (more content not included)...[facility]05-24-2024 Progress note Author Rdaha Ames [facility] June 30, 2023 12:07pmNote Date/TimeMay 2023 12:07pm[place] [address] Cardiology Progress Note Signed Patient: Indiana Hines MR#: [id number] : 1945 Acct:[id number] Age/Sex: 77 / M Adm Date: 05/21/2 4 Loc: 4P Room: 3D4946-1 Type: ADM IN Attending Dr: Angeli Broderick MD Copies to: ~ Date of Service: 06/30/2023 Subjective Interval history: No acute events overnight. HR better controlled on Amiodarone gtt. HR 90-110s. Pt reports feeling subjectively better since admission. Exam Physical Exam Vital Signs: Temp Pulse Resp BP Pulse Ox O2 Del Method O2 Flow Rate 97.9 F 105 H 18 138/83 99 Room Air 2 06/30/23 08:16 06/30/23 08:16 06/30/23 08:16 06/30/23 08:16 06/30/23 08:16 06/30/23 08:16 06/29/23 15:00 Narrative: GEN: AAOx3. No acute distress. Neck: No JVD. Lungs: Clear to auscultation bilaterally Heart: Irregularly irregular. Normal S1 and S2. No murmurs or rubs appreciated. Abdomen: Soft, nontender, nondistended, bowel sounds present. Extremities: No BLE edema. Neuro: AAOx3. No focal deficits. Objective Labs 06/27/23 11:18 06/29/23 04:38 A&P - Cardiology (1) Atrial fibrillation with RVR: Code(s): I48.91 - Unspecified atrial fibrillation (2) Fatigue: Code(s): R53.83 - Other fatigue (3) Hypertension: Code(s): I10 - Essential (primary) hypertension (4) Hyperlipidemia: Code(s): E78.5 - Hyperlipidemia, unspecified (5) GERD (gastroesophageal reflux disease): Code(s): K21.9 - Gastro-esophageal reflux disease without esophagitis Plan Mr. Hines is a 77 year old male with PMH significant for HTN, HLD, GERD and CKD 3 who presented after being found to have new onset Afib during a 6 month check up at his PCP's office. - ECHO showed mild LV dysfunction; LVEF 45-50% with moderately dilated RA. Assessment: New onset Afib with RVR. [id number] =3 HTN CKD 3 GERD HLD Plan: - Attempted ANDRIY yesterday but aborted due to increased secretions and hypoxia. Limited images showed spontaneous echo contrast in the SREE with decreased doppler velocities. - Will plan to anticoagulate with Eliquis 5mg BID for 4 weeks prior to DCCV - Switch to PO Amiodarone and continue loading at 400mg BID for 10 days followedby 200mg daily thereafter - Continue Toprol 50mg BID. - OK to discharge home today. Follow up with [facility] cardiology in 6 weeks. Documented By: Radha Ames MD 06/30/23 1203 Signed By: <Electronically signed by Radha Ames MD> 06/30/23 1201 [facility] Work Phone: 1(327) 708-454605-23-2024 Progress note Author Radha Ames [facility] June 29, 2023 5:23pmNote Date/TimeMay 2023 5:23pm[place] [address] Cardiology Progress Note Signed Patient: Indiana Hines MR#: [id number] : 1945 Acct:[id number] Age/Sex: 77 / M Adm Date: 4 Loc: Room: [address] [place] [address] Type: ADM IN Attending Dr: Angeli Broderick MD Copies to: ~ Date of Service: 06/29/2023 Subjective Interval history: Mr. Hines is a 77 year old male with PMH significant for HTN, HLD, GERD and CKD 3 who presented after being found to have new onset Afib during a 6 month check up at his PCP's office. Pt reports 1 week history fatigue and dyspnea. Denied chest pain, orthopnea, PND, BLE edema, palpitations, light headedness or syncope. He was noted to be tachycardic with irregular rhythm and was advised topresent to [facility]. EKG showed Afib with RVR and he was admitted for further management. He is currently on Cardizem gtt with some improvement in HR. Interim evaluation 06/28/2023: Remains in atrial fibrillation with HR in the 110s. Interim evaluation 06/29/2023: Attempted ANDRIY/cardioversion today in the department and OR however pthad increased secretions and desaturations. Few TEEimages were obtained but had to be procedure hadto be stopped due to respiratory status. Exam Physical Exam Vital Signs: Temp Pulse Resp BP Pulse Ox O2 Del Method O2 Flow Rate 97.5 F L 128 H 18 141/89 H 100 Room Air 2 06/29/23 15:28 06/29/23 15:28 06/29/23 15:28 06/29/23 15:28 06/29/23 15:28 06/29/23 15:28 06/29/23 15:00 Narrative: GEN: AAOx3. No acute distress. Neck: No JVD. Lungs: Clear to auscultation bilaterally Heart: Irregularly irregular, tachycardic. Normal S1 and S2. No murmurs or rubs appreciated. Abdomen: Soft, nontender, nondistended, bowel sounds present. Extremities: No BLE edema. Neuro: AAOx3. No focal deficits. Objective Labs 06/27/23 11:18 06/29/23 04:38 Labs: Laboratory Results - last 24 hr 06/29/23 04:38 Sodium 139 Potassium 4.2 Chloride 108 H Carbon Dioxide 20.4 L Anion Gap 14.8 A&P - Cardiology (1) Atrial fibrillation with RVR: Code(s): I48.91 - Unspecified atrial fibrillation (2) Fatigue: Code(s): R53.83 - Other fatigue (3) Hypertension: Code(s): I10 - Essential (primary) hypertension (4) Hyperlipidemia: Code(s): E78.5 - Hyperlipidemia, unspecified (5) GERD (gastroesophageal reflux disease): Code(s): K21.9 - Gastro-esophageal reflux disease without esophagitis Plan Mr. Hines is a 77 year old male with PMH significant for HTN, HLD, GERD and CKD 3 who presented after being found to have new onset Afib during a 6 month check up at his PCP's office. - ECHO showed mild LV dysfunction; LVEF 45-50% with moderately dilated RA. Assessment: New onset Afib with RVR. [id number] =3 HTN CKD 3 GERD HLD Plan: - ANDRIY aborted today due to hypoxia and increased secretions- attempted in the ORwith anesthesia shortly after but similar findings recurred with deeper anesthesia. Would like to defer need for an advanced airway for ANDRIY and plan to anticoagulate for 4 weeks prior to DCCV. - Continue Amiodarone gtt until tomorrow. Will add Toprol 50mg BID for additional rate control. HR goal <110 - Plan to switch to PO Amiodarone tomorrow and arrange for outpatient DCCV in 4 weeks - Continue Eliquis 5mg BID - Will follow. Documented By: Radha Ames MD 06/29/23 1716 Signed By: <Electronically signed by Radha Ames MD> 06/29/23 1723 [facility] Work Phone: 1(268) 802-642305-23-2024 Progress note Author Angeli Broderick [facility] June 29, 2023 11:45amNote Date/TimeMay 2023 11:45am[place] [id number] Hospitalist Progress Note Signed Patient: Indiana Hines MR#: [id number] : 1945 Acct:[id number] Age/Sex: 77 / M Adm Date: 4 Loc: 4 Room: [address] [place] [address] Type: ADM IN Attending Dr: Angeli Broderick MD Copies to: ~ Date of Service: 06/29/2023 Subjective Subjective Narrative: On examination patient lying comfortably but remains in A-fib with heart rate inthe 120s. He was transferred to stepdown unit yesterday and started on amiodarone drip with plan for ANDRIY and cardioversion later today. Patient denieshaving chest pain. Exam Physical Exam Vital Signs: Temp Pulse Resp BP Pulse Ox O2 Del Method 98.1 F 116 H 22 129/80 98 Room Air 06/29/23 11:17 06/29/23 11:17 06/29/23 11:17 06/29/23 11:17 06/29/23 11:17 06/29/23 11:17 Const Orientation: alert, awake and oriented x3 Resp Effort & Inspection: normal respiratory effort and able to speak in complete sentences Auscultation: no rales, no rhonchi and no wheezes Cardio Rhythm: abnormal rhythm irregularly irregular Heart Sounds: S1 normal and S2 normal GI Palpation: soft, not firm, no guarding and nontender Neuro General: patient alert, patient awake, patient oriented x3, moves all extremities, no focal motor deficits and CN's II-XI intact bilaterally Objective Lab Results 06/27/23 11:18 06/29/23 04:38 Meds Allergies and Active Meds Allergies nafcillin Adverse Reaction (Verified 06/27/23 11:06) Unknown Reaction Active Meds: Active Medications Generic Name Dose Route Start Last Admin Trade Name Freq PRN Reason Stop Dose Admin Acetaminophen 650 mg 06/27/23 21:13 Acetaminophen 325 Mg Tablet PO 06/26/24 13:59 Q4HR PRN Pain Apixaban 5 mg 06/27/23 21:00 06/29/23 09:18 Apixaban 5 Mg Tablet PO 06/26/24 20:59 Not Given BID MELANIE Atorvastatin Calcium 20 mg 06/27/23 14:00 06/28/23 09:04 Atorvastatin 20 Mg Tablet PO 06/26/24 13:59 20 mg DAILY MELANIE Administration Atropine Sulfate 1 mg 06/28/23 16:34 Atropine Sulfate 1 Mg/10 Ml Syringe IV-PUSH ONCE PRN Bradycardia Sodium Chloride 1,000 mls @ 20 mls/hr 06/27/23 17:00 06/28/23 20:04 0.9% Sodium Chloride 1,000 Ml IV 06/26/24 16:59 0 mls/hr .Q24H MELANIE Infusion Amiodarone HCl 450 mg/ 250 mls @ 33.333 mls/hr 06/28/23 16:30 06/29/23 02:55 Dextrose IV 06/29/23 16:29 0.5 mg/min .Q7H30M MELANIE 16.67 mls/hr Administration Protocol 1 MG/MIN Dextrose/Sodium Chloride 1,000 mls @ 20 mls/hr 06/29/23 12:00 5 % Dextrose-0.45 % Nacl IV 06/28/24 11:59 .Q24H MELANIE Dextrose/Sodium Chloride 1,000 mls @ 20 mls/hr 06/29/23 12:00 5 % Dextrose-0.45 % Nacl IV 06/30/23 11:59 .Q24H ONE Lisinopril 5 mg 06/27/23 14:00 06/28/23 09:04 Lisinopril 5 Mg Tablet PO 06/26/24 13:59 5 mg DAILY MELANIE Administration Pantoprazole Sodium 40 mg 06/27/23 13:30 06/29/23 09:18 Pantoprazole 40 Mg Tablet. PO 06/26/24 13:29 Not Given BID MELANIE Potassium Chloride 40 meq 06/29/23 09:00 Potassium Chloride Er 20 Meq Tab.Er.Prt PO STAT PRN Hypokalemia Sodium Chloride 0 ml 06/27/23 11:06 06/27/23 11:18 Sodium Chloride 0.9 % 10 Ml Syringe IV-PUSH 06/26/24 11:05 10 ml PRN PRN Administration Flush Sodium Chloride 0 ml 06/28/23 16:31 Sodium Chloride 0.9 % 10 Ml Syringe IV-PUSH 06/27/24 16:30 PRN PRN Flush Sodium Chloride 0 ml 06/28/23 16:34 Sodium Chloride 0.9 % 10 Ml Syringe IV-PUSH 06/27/24 16:33 PRN PRN Flush A&P - Hospitalist Assessment/Plan (1) Atrial fibrillation with RVR: (2) Elevated brain natriuretic peptide (BNP) level: (3) Hypomagnesemia: (4) Hypertension: Plan Appreciate cardiology consultation and patient has been started on amiodarone drip for plan for TEEand cardioversion. Echocardiogram showing EF of 45 to 50%with normal LV wall motion. Patient risk of developing tachycardia induced cardiomyopathy will benefit from sikhism of normal sinus rhythmand rate control. Defer further management regarding cardiomyopathy and A-fib to cardiology. Continue Eliquis, lisinopril and PPI. Documented By: Angeli Broderick MD 06/29/23 1142 Signed By: <Electronically signed by Angeli Broderick MD> 06/29/23 1145 [facility] Work Phone: 1(744) 257-746805-22-2024 Progress note Author Radha Ames [facility] June 28, 2023 6:21pmNote Date/TimeMay 2023 6:19pm[place]rummond [place] [address] Cardiology Progress Note Signed Patient: Indiana Hines MR#: [id number] : 1945 Acct:[id number] Age/Sex: 77 / M Adm Date: 4 Loc: 4 Room: [address] [place] [address] Type: ADM IN Attending Dr: Angeli Broderick MD Copies to: ~ Date of Service: 06/28/2023 Subjective Interval history: Mr. Hines is a 77 year old male with PMH significant for HTN, HLD, GERD and CKD 3 who presented after being found to have new onset Afib during a 6 month check up at his PCP's office. Pt reports 1 week history fatigue and dyspnea. Denied chest pain, orthopnea, PND, BLE edema, palpitations, light headedness or syncope. He was noted to be tachycardic with irregular rhythm and was advised topresent to [facility]. EKG showed Afib with RVR and he was admitted for further management. He is currently on Cardizem gtt with some improvement in HR. Interim evaluation 06/28/2023: Remains in atrial fibrillation with HR in the 110s. Exam Physical Exam Vital Signs: Temp Pulse Resp BP Pulse Ox O2 Del Method 97.7 F 98 18 116/64 98 Room Air 06/28/23 15:04 06/28/23 17:46 06/28/23 15:04 06/28/23 17:46 06/28/23 15:04 06/28/23 15:04 Narrative: GEN: AAOx3. No acute distress. Neck: No JVD. Lungs: Clear to auscultation bilaterally Heart: Regular rate and rhythm. Normal S1 and S2. No murmurs or rubs appreciated. Abdomen: Soft, nontender, nondistended, bowel sounds present. Extremities: No BLE edema. Neuro: AAOx3. No focal deficits. Objective Labs 06/27/23 11:18 06/27/23 11:18 Labs: Laboratory Results - last 24 hr 06/28/23 06:41 Magnesium 1.9 TSH 3rd Generation 1.71 A&P - Cardiology (1) Atrial fibrillation with RVR: Code(s): I48.91 - Unspecified atrial fibrillation (2) Fatigue: Code(s): R53.83 - Other fatigue (3) Hypertension: Code(s): I10 - Essential (primary) hypertension (4) Hyperlipidemia: Code(s): E78.5 - Hyperlipidemia, unspecified (5) GERD (gastroesophageal reflux disease): Code(s): K21.9 - Gastro-esophageal reflux disease without esophagitis Plan Mr. Hines is a 77 year old male with PMH significant for HTN, HLD, GERD and CKD 3 who presented after being found to have new onset Afib during a 6 month check up at his PCP's office. Assessment: New onset Afib with RVR. [id number] =3 HTN CKD 3 GERD HLD Plan: - HR better controlled but remains in Afib on Cardizem gtt. - Will stop Cardizem and start Amiodarone bolus and gtt and plan for ANDRIY/DCCV ron. - ECHO showed mild LV dysfunction; LVEF 45-50% with moderately dilated RA. - Continue Eliquis 5mg BID. Documented By: Radha Ames MD 06/28/231814 Signed By: <Electronically signed by Radha Ames MD> 06/28/23 1821 [facility] Work Phone: 1(725) 666-872605-22-2024 Progress note Author Angeli Broderick [facility] June 28, 2023 11:31amNote Date/TimeMay 2023 11:20am[place] [id number] Hospitalist Progress Note Signed Patient: Indiana Hines MR#: [id number] : 1945 Acct:[id number] Age/Sex: 77 / M Adm Date: 4 Loc: Room: [address] [place] [address] Type: ADM IN Attending Dr: Angeli Broderick MD Copies to: ~ Date of Service: 06/28/2023 Subjective Subjective Narrative: Patient examined at bedside with no overnight event. Remains in A-fib with heart rate in 100s on Cardizem drip. Mentioned getting short of breath on exertion but denies having chest pain. Appreciate cardiology consultation with plan to obtain 2D echocardiogram. Exam Physical Exam Vital Signs: Temp Pulse Resp BP Pulse Ox O2 Del Method 97.9 F 104 H 18 123/86 96 Room Air 06/28/23 07:46 06/28/23 09:04 06/28/23 07:46 06/28/23 09:04 06/28/23 07:46 06/28/23 08:00 Const Orientation: alert, awake and oriented x3 Resp Effort & Inspection: normal respiratory effort and able to speak in complete sentences Auscultation: no rales, no rhonchi and no wheezes Cardio Rhythm: abnormal rhythm irregularly irregular Heart Sounds: S1 normal Bruits: abdominal aortic bruit GI Palpation: soft, not firm, no guarding and nontender Neuro General: patient alert, patient awake, patient oriented x3, moves all extremities, no focal motor deficits and CN's II-XI intact bilaterally Objective Lab Results 06/27/23 11:18 06/27/23 11:18 Meds Allergies and Active Meds Allergies nafcillin Adverse Reaction (Verified 06/27/23 11:06) Unknown Reaction Active Meds: Active Medications Generic Name Dose Route Start Last Admin Trade Name Freq PRN Reason Stop Dose Admin Acetaminophen 650 mg 06/27/23 21:13 Acetaminophen 325 Mg Tablet PO 06/26/24 13:59 Q4HR PRN Pain Apixaban 5 mg 06/27/23 21:00 06/28/23 09:04 Apixaban 5 Mg Tablet PO 06/26/24 20:59 5 mg BID MELANIE Administration Atorvastatin Calcium 20 mg 06/27/23 14:00 06/28/23 09:04 Atorvastatin 20 Mg Tablet PO 06/26/24 13:59 20 mg DAILY MELANIE Administration Diltiazem HCl 100 mg in 100 mls @ 10 mls/hr 06/27/23 11:15 06/28/23 09:04 Cardizem IV 06/26/24 11:14 15 mg/hr .Q10H MELANIE 15 mls/hr Administration Protocol 10 MG/HR Sodium Chloride 1,000 mls @ 20 mls/hr 06/27/23 17:00 06/27/23 17:26 0.9% Sodium Chloride 1,000 Ml IV 06/26/24 16:59 20 mls/hr .Q24H MELANIE Administration Lisinopril 5 mg 06/27/23 14:00 06/28/23 09:04 Lisinopril 5 Mg Tablet PO 06/26/24 13:59 5 mg DAILY MELANIE Administration Pantoprazole Sodium 40 mg 06/27/23 13:30 06/28/23 09:04 Pantoprazole 40 Mg Tablet.Dr PO 06/26/24 13:29 40 mg BID MELANIE Administration Sodium Chloride 0 ml 06/27/23 11:06 06/27/23 11:18 Sodium Chloride 0.9 % 10 Ml Syringe IV-PUSH 06/26/24 11:05 10 ml PRN PRN Administration Flush A&P - Hospitalist Assessment/Plan (1) Atrial fibrillation with RVR: (2) Elevated brain natriuretic peptide (BNP) level: (3) Hypomagnesemia: (4) Hypertension: Plan He remains in A-fib with rapid ventricular rate and currently on Cardizem drip. Ending echocardiogram result. Appreciate cardiology consultation. Magnesium has been replaced. Patient started on Eliquis after discussing risk and benefit of anticoagulation. Blood pressure well-controlled and continue lisinopril. Amlodipine has been held since patient is on Cardizem. Continue statin and PPI as per home medication. Documented By: Angeli Broderick MD 06/28/23 1118 Signed By: <Electronically signed by Angeli Broderick MD> 06/28/23 1131 [facility] Work Phone: 1(539) 468-455105-21-2024 Consult note Author Radha Ames [facility] June 27, 2023 5:21pmNote Date/TimeMay 2023 5:20pm[place] [id number] Cardiology Consult Note Signed Patient: Indiana Hines MR#: [id number] : 1945 Acct:[id number] Age/Sex: 77 / M Adm Date: 4 Loc: Room: [address] [place] [address] Type: ADM IN Attending Dr: Angeli Broderick MD Copies to: DO Radha Coffman MD Mazhar Rahman, MD~ Cardiology HPI History of Present Illness Consult Date: 06/27/23 Reason for Consult: New onset Afib with RVR HPI: Mr. Hines is a 77 year old male with PMH significant for HTN, HLD, GERD and CKD 3 who presented after being found to have new onset Afib during a 6 month check up at his PCP's office. Pt reports 1 week history fatigue and dyspnea. Denied chest pain, orthopnea, PND, BLE edema, palpitations, light headedness or syncope. He was noted to be tachycardic with irregular rhythm and was advised topresent to [facility]. EKG showed Afib with RVR and he was admitted for further management. He is currently on Cardizem gtt with some improvement in HR. 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/2014 - right hip- [facility]- CC repaired 2015 Family History Brother Family history of mental disorder Legacy FamHx Relation: Brother(s); Legacy FamHx Problem: Diagnosed with Mental Illness Daughter Legacy FamHx Relation: Daughter(s) Father 94 yrs Family/Other Legacy FamHx Problem: 1 BROTHER OVERDOSE Grandparent Legacy FamHx Relation: Maternal Grand Father Grandparent Legacy FamHx Relation: Maternal Grand Mother Grandparent Legacy FamHx Relation: Paternal Grand Father Grandparent Legacy FamHx Relation: Paternal Grand Mother Mother 94 yrs Social History Smoking Status: Current some day smoker Substance Use Type: None Meds Medications and Allergies Allergies nafcillin Adverse Reaction (Verified 06/27/23 11:06) Unknown Reaction Home Medications amlodipine 5 mg tablet 5 mg PO DAILY 05/06/17 [History Confirmed 06/27/23] omeprazole 40 mg capsule,delayed release 40 mg PO DAILY #90 caps 04/17/23 [Rx Confirmed 06/27/23] acetaminophen 650 mg tablet,extended release (Tylenol Arthritis Pain) 2 tab PO Q8HR 04/19/23 [History Confirmed 06/27/23] ascorbic acid (vitamin C) 500 mg capsule 1 cap PO DIRECTED 04/19/23 [History Confirmed 06/27/23] wrikcolvqcwu-whh-fzaqo acid-vit K-lycop 400 mcg-20 mcg-370 mcg tablet (Men's 50 Plus Multivitamin) 1 tab PO DAILY 04/19/23 [History Confirmed 06/27/23] omega 7-bmp-omj-fish oil 1,200 mg (144 mg-216 mg) capsule (Fish Oil) 1 cap PO DAILY 04/19/23 [History Confirmed 06/27/23] Vitamin d 3 PO 06/27/23 [History] Zinc and vitamin c PO 06/27/23 [History] coenzyme Q10 100 mg capsule (Co Q-10) 100 mg PO DAILY 06/27/23 [History Confirmed 06/27/23] diphenhydramine 25 mg-acetaminophen 500 mg tablet (Tylenol PM Extra Strength) 1 tab PO QHS PRN sleep 06/27/23 [History Confirmed 06/27/23] lisinopril 5 mg tablet 5 mg PO DAILY 06/27/23 [History Confirmed 06/27/23] minocycline 100 mg capsule 100 mg PO DAILY 06/27/23 [History Confirmed 06/27/23] probiotic PO 06/27/23 [History] rosuvastatin 10 mg tablet 10 mg PO DAILY 06/27/23 [History Confirmed 06/27/23] Exam Physical Exam Vital Signs: Temp Pulse Resp BP Pulse Ox O2 Del Method 98 F 113 H 16 153/79 H 98 Room Air 06/27/23 14:31 06/27/23 14:31 06/27/23 14:31 06/27/23 14:31 06/27/23 14:31 06/27/23 15:30 Narrative: GEN: AAOx3. No acute distress. Neck: No JVD. Lungs: Clear to auscultation bilaterally Heart: Regular rate and rhythm. Normal S1 and S2. No murmurs or rubs appreciated. Abdomen: Soft, nontender, nondistended, bowel sounds present. Extremities: No BLE edema. Neuro: AAOx3. No focal deficits. Results - Cardiology Labs 06/27/23 11:18 06/27/23 11:18 Lab results: Cardiac Enzymes 06/27/23 Range/Units 11:18 AST 21 (13-39) U/L Total Creatine Kinase 70 (30-223) U/L B-Natriuretic Peptide 713.0 H (5-100) pg/mL CBC 06/27/23 Range/Units 11:18 RBC 4.24 (3.90-5.60) X10E6/uL Hgb 12.6 L (13.0-17.0) g/dL Hct 38.4 L (38.8-50.0) % Plt Count 238 (150-450) x10E3/uL Neut # (Auto) 5.4 (1.8-7.7) x10E3/uL Lymph # (Auto) 1.2 (1.00-4.8) x10E3/uL [place] # (Auto) 1.0 H (0.0-0.8) x10E3/uL Eos # (Auto) 0.1 (0.0-0.45) x10E3/uL Baso # (Auto) 0.1 (0.0-0.2) x10E3/uL Comprehensive Metabolic Panel 06/27/23 Range/Units 11:18 Sodium 140 (136-145) mmol/L Potassium 4.5 (3.5-5.1) mmol/L Chloride 109 H (98-107) mmol/L Carbon Dioxide 22.5 (21.0-31.0) mmol/L BUN 25 (7-25) mg/dL Creatinine 1.24 (0.70-1.30) mg/dL Glucose 99 (70-100) mg/dL Calcium 9.2 (8.6-10.3) mg/dL AST 21 (13-39) U/L ALT 34 (7-52) U/L Alkaline Phosphatase 112 H (34-104) U/L Total Protein 7.1 (6.4-8.9) gm/dL Albumin 4.1 (3.5-5.7) gm/dL Intake and Output 06/27/23 06/27/23 06/27/23 07:59 15:59 23:59 Other: # Voids 0 # Bowel Movements 0 Weight 116 kg Date of Last Bowel Movement 06/26/23 Patient Weight 06/27/23 23:59 Weight 116 kg Lab 06/27/23 11:18 PT 12.9 INR 1.1 APTT 30.4 A&P - Cardiology (1) Atrial fibrillation with RVR: Code(s): I48.91 - Unspecified atrial fibrillation (2) Fatigue: Code(s): R53.83 - Other fatigue (3) Hypertension: Code(s): I10 - Essential (primary) hypertension (4) Hyperlipidemia: Code(s): E78.5 - Hyperlipidemia, unspecified (5) GERD (gastroesophageal reflux disease): Code(s): K21.9 - Gastro-esophageal reflux disease without esophagitis Plan Mr. Hines is a 77 year old male with PMH significant for HTN, HLD, GERD and CKD 3 who presented after being found to have new onset Afib during a 6 month check up at his PCP's office. Assessment: New onset Afib with RVR. QSG5MS5-SLLq =3 HTN CKD 3 GERD HLD Plan: - Continue Cardizem gtt for rate control. Replete electrolytes to maintain K>4 and Mg>2. - ECHO to evaluate EF and atria. - Continue Eliquis 5mg BID - Will follow Documented By: Radha Ames MD 06/27/23 1707 Signed By: <Electronically signed by Radha Ames MD> 06/27/23 1721 [facility] Work Phone: 1(461) 780-620405-21-2024 History and physical note Author Angeli Broderick [facility] June 27, 2023 2:09pmNote Date/TimeMay 2023 1:19[place] [address] Hospitalist H&P Signed with Addenda Patient: Indiana Hines MR#: [id number] : 1945 Acct:[id number] Age/Sex: 77 / M Adm Date: 4 Loc: ER Room: Type: [facility] ER Attending Dr: Copies to: Kevin Nunez, DO Juvencio Sanchez,DO Angeli Broderick MD~ ADDENDUM1 Patient was personally seen by me on the day of encounter, reviewed his history and performed pantoja elements of exam and formulated the plan of care and confirmedthe resident/interns note below. Patient will be admitted for newly diagnosed atrial fibrillation with rapid ventricular rate. He did mention feeling tired with fatigue. No prior history of coronary disease or cardiac arrhythmia. Discussed with patient and his regarding anticoagulant patient occluding risk of bleeding which could be life- threatening. Patient denies having prior history of GI bleed or bleeding disorder. He agrees with anticoagulation and has been started on Eliquis. Addendum Documented By: Angeli Broderick MD 06/27/23 1409 Addendum Signed By: <Electronically signed by Angeli Broderick MD> 06/27/23 1409 HPI DATE OF EXAMINATION: 06/27/23 CHIEF COMPLAINT: Feeling tired and weak, referral from PCP finding irregular heart rate HISTORY OF PRESENT ILLNESS: Mr. Hines is a 77-year-old male with a past medical history of pilonidal cyst [id number], kidney disease, secondary hyperparathyroidism, CKD stage III, neuropathy, hammertoe of right foot, GERD, elevatedPSA, herniated disc in 1977, and bladdercancer presented to the emergency department today after a visit with his PCP. On examination, his PCP noted an irregular heart rate along with the patient complaining of more easily tiring with exertion and feeling weak. PCP instructed the patient to come tot emergency department which the patient didat this time. Per the documentation, patient denied chest pain, palpitations. He stated that he feels fine sitting around, but notes his symptoms appear when he moves around and exerts himself. He did confirm some shortness of breath. He denied any prior issues with GI bleeding and prior heart history. Vital signs in the emergency department reveal elevated blood pressure 136/59 and tachycardia ranging from 122 to 137 bpm. Lab review in the emergency department reveals slightly low hemoglobin at 12.6, slightly low hematocrit at 38.4, high RDW at 15.3, high RDW at 15.3, monocyte number at 1.0, chloride at 109, low magnesium at 1.5, slightly high ALP at 112, elevated BNP at 713. Chestx-ray reveals borderline cardiomegaly and chronic nonspecific interstitial change. EKG reveals atrial fibrillation with RVR. On entrance to the room, patient is resting in bed with his at bedside. Heconfirms the story as noted above. Furthermore, patient notes that his kidney disease was caused by taking nafcillin in the past, and his kidney disease has resolved since then. Patient confirms that he has never had anyheart surgeriesor history of heart disease. He denies a history of congestive heart failure, hypertension, diabetes, stroke, and vascular pathology. Patient and note that they were at the PCP for their 6-month lab work check. He denies headache,changes in vision, changes in hearing, nausea, vomiting, diarrhea, constipation,belly pain, numbness, tingling, and rash. All questions and concerns are addressed at this time. Review of Systems Review of Systems All other systems reviewed & are negative unless noted below or in HPI [facility] Medical History (Updated 06/27/23 @ 13:16 by Mejia Vincent, DO, RES) Hx of pilonidal cyst 1990 [place] kid w cr kid I-IV Secondary hyperparathyroidism CKD (chronic kidney disease) stage 3, GFR 30-59 ml/min Neuropathy Hammer toe of right foot GERD (gastroesophageal reflux disease) Elevated PSA Herniated disc 1977 back Bladder cancer Surgical History History of colonoscopy 2006 History of total right knee replacement 2013 History of left knee replacement 1999 History of total hip replacement 08/13/2014 Family History Brother Family history of mental disorder Legacy FamHx Relation: Brother(s); Legacy FamHx Problem: Diagnosed with Mental Illness Daughter Legacy FamHx Relation: Daughter(s) Father 94 yrs Family/Other Legacy FamHx Problem: 1 BROTHER OVERDOSE Grandparent Legacy FamHx Relation: Maternal Grand Father Grandparent Legacy FamHx Relation: Maternal Grand Mother Grandparent Legacy FamHx Relation: Paternal Grand Father Grandparent Legacy FamHx Relation: Paternal Grand Mother Mother 94 yrs Social History Smoking Status: Former smoker Substance Use Type: Alcohol Meds Medications and Allergies Allergies nafcillin Adverse Reaction (Verified 06/27/23 11:06) Unknown Reaction Home Medications amlodipine 5 mg tablet 5 mg PO DAILY 05/06/17 [History Confirmed 06/27/23] omeprazole 40 mg capsule,delayed release 40 mg PO DAILY #90 caps 04/17/23 [Rx Confirmed 06/27/23] acetaminophen 650 mg tablet,extended release (Tylenol Arthritis Pain) 2 tab PO Q8HR 04/19/23 [History Confirmed 06/27/23] ascorbic acid (vitamin C) 500 mg capsule 1 cap PO DIRECTED 04/19/23 [History Confirmed 06/27/23] vyavjksizswg-bim-fehfk acid-vit K-lycop 400 mcg-20 mcg-370 mcg tablet (Men's 50 Plus Multivitamin) 1 tab PO DAILY 04/19/23 [History Confirmed 06/27/23] omega 1-bqp-fot-fish oil 1,200 mg (144 mg-216 mg) capsule (Fish Oil) 1 cap PO DAILY 04/19/23 [History Confirmed 06/27/23] Vitamin d 3 PO 06/27/23 [History] Zinc and vitamin c PO 06/27/23 [History] coenzyme Q10 100 mg capsule (Co Q-10) 100 mg PO DAILY 06/27/23 [History Confirmed 06/27/23] diphenhydramine 25 mg-acetaminophen 500 mg tablet (Tylenol PM Extra Strength) 1 tab PO QHS PRN sleep 06/27/23 [History Confirmed 06/27/23] lisinopril 5 mg tablet 5 mg PO DAILY 06/27/23 [History Confirmed 06/27/23] minocycline 100 mg capsule 100 mg PO DAILY 06/27/23 [History Confirmed 06/27/23] probiotic PO 06/27/23 [History] rosuvastatin 10 mg tablet 10 mg PO DAILY 06/27/23 [History Confirmed 06/27/23] Exam Physical Exam Vital Signs: Temp Pulse Resp BP Pulse Ox O2 Del Method 97.5 F L 137 H 22 127/88 100 Room Air 06/27/23 11:06 06/27/23 12:35 06/27/23 12:33 06/27/23 12:33 06/27/23 12:33 06/27/23 12:33 Narrative: General: A&Ox4, no acute distress HEENT: head atraumatic, normocephalic, moist mucous membranes Neck: supple no masses, no lymphadenopathy CVS: Irregularly irregular rate and rhythm, no murmurs or gallops, atrial fibrillation with RVR on EKG. Respiratory: clear to auscultation bilaterally, no wheezing or crackles, symmetric expansion GI: soft, nondistended, nontender, positive bowel sounds with no organomegaly Extremity: moves all extremities, no restrictions of movements, no calf tenderness, 1+ pitting edema bilaterally in lower extremities. Neuro: Moves all extremities in all planes of motion. Skin: dry, intact no rashes or lesions Psych: Cooperative, congruent mood, bright affect Results - Hospitalist H&P Lab Results Labs: Laboratory Last Values Corrected WBC 7.7 X10E3/uL (4.1-10.5) 06/27/23 11:18 Uncorrected WBC Count 7.7 x10E3/uL (4.1-10.5) 06/27/23 11:18 RBC 4.24 X10E6/uL (3.90-5.60) 06/27/23 11:18 Hgb 12.6 g/dL (13.0-17.0) L 06/27/23 11:18 Hct 38.4 % (38.8-50.0) L 06/27/23 11:18 MCV 90.7 fl (83.5-101) 06/27/23 11:18 MCH 29.6 pg (27.5-35.2) 06/27/23 11:18 MCHC 32.7 g/dL (32.5-35.6) 06/27/23 11:18 RDW 15.3 % (12.0-14.8) H 06/27/23 11:18 Plt Count 238 x10E3/uL (150-450) 06/27/23 11:18 MPV 9.4 fl (6.6-10.1) 06/27/23 11:18 Neut % (Auto) 69.3 % (.) 06/27/23 11:18 Lymph % (Auto) 15.0 % (.) 06/27/23 11:18 [place] % (Auto) 13.3 % (.) 06/27/23 11:18 Eos % (Auto) 1.7 % (.) 06/27/23 11:18 Baso % (Auto) 0.7 % (.) 06/27/23 11:18 Nucleat RBC Rel Count 0.1 /100 WBC (0-0.5) 06/27/23 11:18 Neut # (Auto) 5.4 x10E3/uL (1.8-7.7) 06/27/23 11:18 Lymph # (Auto) 1.2 x10E3/uL (1.00-4.8) 06/27/23 11:18 [place] # (Auto) 1.0 x10E3/uL (0.0-0.8) H 06/27/23 11:18 Eos # (Auto) 0.1 x10E3/uL (0.0-0.45) 06/27/23 11:18 Baso # (Auto) 0.1 x10E3/uL (0.0-0.2) 06/27/23 11:18 Monocyte Dist Width 18.19 % (0.00-20.00) 06/27/23 11:18 PT 12.9 Seconds (9.0-12.9) 06/27/23 11:18 INR 1.1 06/27/23 11:18 APTT 30.4 Seconds (25.1-36.5) 06/27/23 11:18 PHA Creatinine Clear 65.54 06/27/23 11:18 Sodium 140 mmol/L (136-145) 06/27/23 11:18 Potassium 4.5 mmol/L (3.5-5.1) 06/27/23 11:18 Chloride 109 mmol/L (98-107) H 06/27/23 11:18 Carbon Dioxide 22.5 mmol/L (21.0-31.0) 06/27/23 11:18 Anion Gap 13.0 mEq/L (6.0-15.0) 06/27/23 11:18 BUN 25 mg/dL (7-25) 06/27/23 11:18 Creatinine 1.24 mg/dL (0.70-1.30) 06/27/23 11:18 Est GFR (CKD-EPI) 59.511 mL/Min 06/27/23 11:18 Glucose 99 mg/dL (70-100) 06/27/23 11:18 Calcium 9.2 mg/dL (8.6-10.3) 06/27/23 11:18 Magnesium 1.5 mg/dL (1.9-2.7) L 06/27/23 11:18 Total Bilirubin 0.6 mg/dl (0.3-1.0) 06/27/23 11:18 AST 21 U/L (13-39) 06/27/23 11:18 ALT 34 U/L (7-52) 06/27/23 11:18 Alkaline Phosphatase 112 U/L (34-104) H 06/27/23 11:18 Total Creatine Kinase 70 U/L (30-223) 06/27/23 11:18 Troponin I High Sens 10.1 pg/mL (0.0-20.0) 06/27/23 11:18 B-Natriuretic Peptide 713.0 pg/mL (5-100) H 06/27/23 11:18 Total Protein 7.1 gm/dL (6.4-8.9) 06/27/23 11:18 Albumin 4.1 gm/dL (3.5-5.7) 06/27/23 11:18 Globulin 3.0 gm/dL 06/27/23 11:18 Albumin/Globulin Ratio 1.4 06/27/23 11:18 Assessment & Plan Assessment/Plan (1) Atrial fibrillation with RVR: (2) Elevated brain natriuretic peptide (BNP) level: (3) Hypomagnesemia: Plan Atrial fibrillation with RVR, newly diagnosed. -Continue telemetry. -Consult cardiology. -Continue diltiazem IV. -Start apixaban 5 mg p.o. twice daily. -Monitor vitals every 2 hours. -Start normal p.o. diet. -Normal activity level as tolerated. Elevated brain natriuretic peptide level -Obtain echocardiogram. -Consult cardiology. Hypomagnesemia -Magnesium was given in the emergency department. -Recheck level in the morning. Other chronic condition -Continue current at home medication regimen. IP vs OBS Justification Based on differential dx, clinical care plan, and risk of adverse events, if untreated, in my clinical judgement this patient requires an acute care setting as: INPATIENT because of an expectation ofan over 2 midnight stay. Estimated length of stay (# of days): 3 Documented By: Angeli Broderick MD 06/27/23 1254 Signed By: <Electronically signed by Angeli Broderick MD> 06/27/23 1408 <Electronically signed by DO ARNULFO Salvador> 06/27/23 1312 [facility] Work Phone: 1(491) 598-957705-21-2024 Evaluation note* Author [facility] 11:17amThe above note written by ___Valencia Lnua____ acting as human recorder, note dictated by Dr. Sal .I performed the above HPI, ROS, and Examination. I formulated and dictated the treatment plan and was present for entire encounter. Juvencio Sanchez D.O. Author Juvencio Sanchez [facility] 2023 11:52amThe above note written by ___Valencia Luna____ acting as human recorder, note dictated by Dr. Sal .I performed the above HPI, ROS, and Examination. I formulated and dictated the treatment plan and was present for entire encounter. Juvencio Sanchez D.O. [facility] Work Phone: 1(437) 515-762605-21-2024 Evaluation note* Author Juvencio Sanchez [facility] 2023 11:17amThe above note written by ___Valencia Luna____ acting as human recorder, note dictated by Dr. Sal .I performed the above HPI, ROS, and Examination. I formulated and dictated the treatment plan and was present for entire encounter. Juvencio Sanchez D.O. [facility] Work Phone: 1(283) 628-453903-13-2024 Evaluation note* Author Juvencio Sanchez [facility] 2023 11:52amThe above note written by ___Valencia Luna____ acting as human recorder, note dictated by Dr. Sal .I performed the above HPI, ROS, and Examination. I formulated and dictated the treatment plan and was present for entire encounter. Juvencio Sanchez D.O. [facility] Work Phone: 1(296) 422-840702-13-2024 NoteHNO ID: [id number] Author: SYMONE WOODY APRN.[facility] Service: ? Author Type: Nurse Practitioner Type: Progress Notes Filed: 03/21/2023 14:34 Note Text: Follow up Visit Patient Name: Indiana Hines MR #: [id number] Age: [age] year old Date: March 09, 2023 Referred by: Patient was last seen on 12/13/2022 for the diagnosis of (M48.062) Spinal stenosis of lumbar region with neurogenic claudication (primary encounter diagnosis . The following plan of care was recommended 1) Frequent rest breaks to sit if having pain with walking/standing 2) Restart gabapentin 600mg at bedtime, #30, refill 2 3) Continue with home exercises/stretches 4) RTC 3 months. Was there relief from this treatment? Gabapentin not doing anything. Treatment agreement on file: No Last toxicology screen done:N/A This Episode: Pattern: Intermittent and Recurrent after with walking or prolonged standing . I can walk longer then I can stand. Character: Dull and Sharp. Severity: VAS Pain: 0-10/10 Current Location: LBP Radiation: non-radiating. Associated Signs/Symptoms: None. Sensory/Motor Changes: None. Changes in Bowel/Bladder Control?: No. Number of hours of sleep per night: 6 Is sleep interrupted by pain? No. Patient feels safe at home: Yes PREVIOUS TREATMENTS LASTING SIX WEEKS IN THE LAST SIX MONTHS Active conservative therapy lasting 6 weeks in the last six months (see below) 1. Physical therapy: No 2. Home exercise program after PT: No 3. Occupational therapy: No 4. 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 Medical devises: Cane 2. Acupuncture: No 3. Tens unit: No 4. Prescription pain medication: Yes GABAPENTIN 5. NSAIDS: Hx of liver issues. Digital Account Supervisor: Mandy Hobbs RN Patient Entered Questionnaires PROMIS Score Percentiles PROMIS Global Health Scale 11/20/2019 09/07/2022 12/09/2022 Physical Health Percentile - 10 7 Mental Health Percentile 53 63 43 Physical Health 11/18/2019 09/07/2022 12/09/2022 Physical Function Percentile 24* 8 7 Pain Interference Percentile 8 8 8 Percentiles provide an indication of how the patient's score ranks in relation to the general population. Higher percentile rankings indicate better function/quality of life. 50th percentile is the average of the general population and indicates half of respondents had a worse score. > 31st percentile is within normal limits or better * < 31st percentile is at least ? SD worse than population, which may be clinically relevant < 16th percentile is at least 1 SD worse than population and warrants attention Imaging: None recent 06/19/19 MRI Lumbar RESULT: Counting reference: Lumbosacral junction. For the purposes of this report, L4-5 is considered the level of the iliac crest and assume there are 5 lumbar-type vertebrae. Anatomic variant: None. Alignment: Mild scoliotic curvature convex right, apex L3-L4. Sagittal alignment is grossly normal. Bone marrow signal/fracture: Old Schmorl's nodes lower L2 and upper L3. No other pathologic marrow infiltration. Conus: Distal cord terminates normally at L1-L2. Paraspinal soft tissues: Obesity. No paraspinal masses. Lower thoracic spine: Canal and foramina are normally patent at T10-T11 and T11-T12. T12-L1: Canal and foramina are patent. L1-L2: Mild loss of disc height, partial loss of T2 hyperintensity in the disc, and facet degenerative change. Central thecal sac is patent. Foramina are patent. L2-L3: Disc bulging, facet degenerative change. Moderate canal narrowing, particularly left lateral recess. Mild right lateral recess narrowing. Loss of disc height and facet degenerative change contributes to severe bilateral foraminal narrowing. L3-L4: Disc bulging and facet degenerative change. Moderate-severe narrowing of spinal canal. Severe left and moderate right lateral recess narrowing likely contributing to radiculopathy. Loss of disc height and bony degenerative change contributes to moderate bilateral foraminal narrowing. L4-L5: Disc bulging and facet degenerative change. Moderate to severe spinal stenosis including the lateral recesses. Neural foramina remain patent. L5-S1: Disc bulging and facet degenerative change. Shallow central protrusion. No direct compression of either descending S1 nerve root sleeve. Narrowing of the central thecal sac primarily related to epidural lipomatosis. Right neural foramen is patent. Moderate to severe left foraminal narrowing. Sacrum and iliac wings: No marrow edema. Procedures: 11/07/22 Dr Yessy oL Caudal ANNIE OARRS: PDMP website checked and validated. All prescriptions have been APPROPRIATELY filled. No suspicious activity was identified.March 21, 2023 by Symone Woody APRN.COOKEE Current Medications: Gabapentin 600mg at hs - not effecti (more content not included)...[facility]02-13-2024 Instructions* Patient Instructions* Symone Woody APRN.COOKEE - 03/21/2023 2:24 PM EST Plan: 1) Continue with tylenol over the counter as needed 2) Recommend frequent short breaks to sit 3) Recommend heat, moist is best, as tolerated as needed 4) Consult physical therapy - [phone] 5) RTC as needed Please watch for the following red flag symptoms: -weight loss, fevers -chills, night time awakening of pain - bowel bladder incontinence (difficulty holding your urine or stool) -saddle anesthesia (numbness and tingling in your groin area) - progressive numbness or weakness. If these symptoms should arise you should seek emergency treatment. Symone Woody APRN.CNP March 21, 2023 [facility] History of Present illness Narrative* Symone Woody APRN.CNP - 03/21/2023 2:00 PM EST Follow up Visit Patient Name: Indiana Hines MR #: [id number] Age: [age] year old Date: March 09, 2023 Referred by: Patient was last seen on 12/13/2022 for the diagnosis of (M48.062) Spinal stenosis of lumbar region with neurogenic claudication (primary encounter diagnosis . The following plan of care was recommended 1) Frequent rest breaks to sit if having pain with walking/standing 2) Restart gabapentin 600mg at bedtime, #30, refill 2 3) Continue with home exercises/stretches 4) RTC 3 months. Was there relief from this treatment? Gabapentin not doing anything. Treatment agreement on file: No Last toxicology screen done:N/A This Episode: Pattern: Intermittent and Recurrent after with walking or prolonged standing . I can walk longer then I can stand. Character: Dull and Sharp. Severity: VAS Pain: 0-10/10 Current Location: LBP Radiation: non-radiating. Associated Signs/Symptoms: None. Sensory/Motor Changes: None. Changes in Bowel/Bladder Control?: No. Number of hours of sleep per night: 6 Is sleep interrupted by pain? No. Patient feels safe at home: Yes PREVIOUS TREATMENTS LASTING SIX WEEKS IN THE LAST SIX MONTHS Active conservative therapy lasting 6 weeks in the last six months (see below) 1. Physical therapy: No 2. Home exercise program after PT: No 3. Occupational therapy: No 4. 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 Medical devises: Cane 2. Acupuncture: No 3. Tens unit: No 4. Prescription pain medication: Yes GABAPENTIN 5. NSAIDS: Hx of liver issues. Digital Account Supervisor: Mandy Hobbs RN Patient Entered Questionnaires PROMIS Score Percentiles PROMIS Global Health Scale 11/20/2019 09/07/2022 12/09/2022 Physical Health Percentile - 10 7 Mental Health Percentile 53 63 43 Physical Health 11/18/2019 09/07/2022 12/09/2022 Physical Function Percentile 24* 8 7 Pain Interference Percentile 8 8 8 Percentiles provide an indication of how the patient's score ranks in relation to the general population. Higher percentile rankings indicate better function/quality of life. 50th percentile is the average of the general population and indicates half of respondents had a worse score. > 31st percentile is within normal limits or better * < 31st percentile is at least SD worse than population, which may be clinically relevant < 16th percentile is at least 1 SD worse than population and warrants attention Imaging: None recent 06/19/19 MRI Lumbar RESULT: Counting reference: Lumbosacral junction. For the purposes of this report, L4-5 is considered the level of the iliac crest and assume there are 5 lumbar-type vertebrae. Anatomic variant: None. Alignment: Mild scoliotic curvature convex right, apex L3-L4. Sagittal alignment is grossly normal. Bone marrow signal/fracture: Old Schmorl's nodes lower L2 and upper L3. No other pathologic marrow infiltration. Conus: Distal cord terminates normally at L1-L2. Paraspinal soft tissues: Obesity. No paraspinal masses. Lower thoracic spine: Canal and foramina are normally patent at T10-T11 and T11-T12. T12-L1: Canal and foramina are patent. L1-L2: Mild loss of disc height, partial loss of T2 hyperintensity in the disc, and facet degenerative change. Central thecal sac is patent. Foramina are patent. L2-L3: Disc bulging, facet degenerative change. Moderate canal narrowing, particularly left lateral recess. Mild right lateral recess narrowing. Loss of disc height and facet degenerative change contributes to severe bilateral foraminal narrowing. L3-L4: Disc bulging and facet degenerative change. Moderate-severe narrowing of spinal canal. Severe left and moderate right lateral recess narrowing likely contributing to radiculopathy. Loss of disc height and bony degenerative change contributes to moderate bilateral foraminal narrowing. L4-L5: Disc bulging and facet degenerative change. Moderate to severe spinal stenosis including the lateral recesses. Neural foramina remain patent. L5-S1: Disc bulging and facet degenerative change. Shallow central protrusion. No direct compression of either descending S1 nerve root sleeve. Narrowing of the central thecal sac primarily related to epidural lipomatosis. Right neural foramen is patent. Moderate to severe left foraminal narrowing. Sacrum and iliac wings: No marrow edema. Procedures: 11/07/22 Dr Yessy oL Caudal ANNIE OARRS: PDMP website checked and validated. All prescriptions have been APPROPRIATELY filled. No suspiciousactivity was identified.March 21, 2023 by Symone Woody APRN.COOKEE Current Medications: Gabapentin 600mg at hs - not effective Tylenol OTC Anticoagulation: none DM: no Physical Therapy: 2019 GFR: no current available - reports hx Kidney disease TENA: 12/13/22 Symone Woody APRN.COOKEE PHYSICAL EXAMINATION: There were no vitals taken for this visit. General appearance: flexed forward, antalgic gait, well appearing, alert, and in no acute distress Skin: skin color, texture, turgor normal, no rashes or lesions HEENT: normocephalic, atraumatic, sclera non-icteric Lungs: Respirations even and non-labored. Cardiovascular:Regular rate and rhythm GI: Soft, non-tender, non-distended. Musculoskeletal: Neck: Supple; good ROM., Back: No pain on palpation of the lumbar spine. Full ROM without reproducible pain. Straight leg raising test negative bilaterally. , SI Joints: No tenderness over the bilateral SI Joints. , Joints: all Normal Neuro: alert and oriented x 3 , chronic right dropfoot HPI & ASSESSMENT: Indiana Hines is a 77 year old male who presents for follow up low back pain in the setting of lumbar spinal stenosis with neurogenic claudication. He is an established patient of Dr. Yessy Lo. , who was last seen on 12/13/22 by Symone Woody APRN.COOKEE for low back pain. Indiana Hines reports no improvement with current medications and plan of care. He reports low back pain, which he describes as dull and sharp. He rates his pain at 0-10/10 currently. The pain is aggravated by walking, standing. The pain is mitigated by sitting. He is currently taking - see above. He denies any red flag symptoms including weight loss, fevers, chills, night time awakening of pain, bowel bladder incontinence, saddle anesthesia, progressive numbness or weakness. We discussed thatif these symptoms should arise she should seek emergency treatment. MRI Lumbar spine 2020 revealing for moderate to severe spinal stenosis. He had a caudal ANNIE 11/07/22 and reported no relief. He is requesting imaging reports to take to a provider for acupuncture services. On exam 77yo male, alert and oriented fully. No acute distress. He walks with an antalgic flexed forward gait. He has difficulty walking on heels due to chronic right dropfoot. Full ROM lumbar spine without pain. SLR negative bilaterally. No tenderness on palpation whole spine and back. Chronic right dropfoot. Otherwise, strength 5/5, and sensation equal and intact BUE, BLE. Impression: (M48.062) Spinal stenosis of lumbar region with neurogenic claudication (primary encounter diagnosis) (M47.816) Lumbar spondylosis Plan: 1) Continue with tylenol over the counter as needed 2) Recommend frequent short breaks to sit 3) Recommend heat, moist is best, as tolerated as needed 4) Consult physical therapy - [phone] 5) RTC as needed I spent a total of 28 minutes on the date of the service which included preparing to see the patient, [id number] patient care, completing clinical documentation, performing a medically appropriate examination, and ordering medications, tests, or procedures. Symone Woody APRN.BRII March 21, 2023 [facility] Evaluation + Plan note Diagnostic Tests Pending * [facility] ([facility]) 03/15/23 [facility]02-07-2024 Hospital Discharge instructions Patient Education 03/15/2023 08:08:05 Benign Prostatic Hyperplasia Benign Prostatic Hyperplasia Benign prostatic hyperplasia (BPH) is an enlarged prostate gland that is caused by the normal agingprocess. The prostate may get bigger as a man gets older. The condition is not caused by cancer. The prostate is a walnut-sized gland that is involved in the production of semen. It is located in front of the rectum and below the bladder. The bladder stores urine. The urethra carries stored urine ou t of the body. An enlarged prostate can press on the urethra. This can make it harder to pass urine. The buildup of urine in the bladder can cause infection. Back pressure and infection may progress to bladder damage and kidney (renal) failure. What are the causes? This condition is part of the normal aging process. However, not all men develop problems from thiscondition. If the prostate enlarges away from the urethra, urine flow will not be blocked. If it enlarges toward the urethra and compresses it, there will be problems passing urine. What increases the risk? This condition is more likely to develop in men older than 50 years. What are the signs or symptoms? Symptoms of this condition include: Getting up often during the night to urinate. Needing to urinate frequently during the day. Difficulty starting urine flow. Decrease in size and strength of your urine stream. Leaking (dribbling) after urinating. Inability to pass urine. This needs immediate treatment. Inability to completely empty your bladder. Pain when you pass urine. This is more common if there is also an infection. Urinary tract infection (UTI). How is this diagnosed? This condition is diagnosed based on your medical history, a physical exam, and your symptoms. Tests will also be done, such as: A post-void bladder scan. This measures any amount of urine that may remain in your bladder after you finish urinating. A digital rectal exam. In a rectal exam, your health care provider checks your prostate by putting a lubricated, gloved finger into your rectum to feel the back of your prostate gland. This exam detects the size of your gland and any abnormal lumps or growths. An exam of your urine (urinalysis). A prostate specific antigen (PSA) screening. This is a blood test used to screen for prostate cancer. An ultrasound. This test uses sound waves to electronically produce a picture of your prostate gland. Your health care provider may refer you to a specialist in kidney and prostate diseases (urologist). How is this treated? Once symptoms begin, your health care provider will monitor your condition (active surveillance or watchful waiting). Treatment for this condition will depend on the severity of your condition. Treatment may include: Observation and yearly exams. This may be the only treatment needed if your condition and symptoms are mild. Medicines to relieve your symptoms, including: ?Medicines to shrink the prostate. ?Medicines to relax the muscle of the prostate. Surgery in severe cases. Surgery may include: ?Prostatectomy. In this procedure, the prostate tissue is removed completely through an open incision or with a laparoscope or robotics. ?Transurethral resection of the prostate (TURP). In this procedure, a tool is inserted through the opening at the tip of the penis (urethra). It is used to cut away tissue of the inner core of the prostate. The pieces are removed through the same opening of the penis. This removes the blockage. ?Transurethral incision (TUIP). In this procedure, small cuts are made in the prostate. This lessens the prostate's pressure on the urethra. ?Transurethral microwave thermotherapy (TUMT). This procedure uses microwaves to create heat. The heat destroys and removes a small amount of prostate tissue. ?Transurethral needle ablation (TUNA). This procedure uses radio frequencies to destroy and remove a small amount of prostate tissue. ?Interstitial laser coagulation (ILC). This procedure uses a laser to destroy and remove a small amount of prostate tissue. ?Transurethral electrovaporization (TUVP). This procedure uses electrodes to destroy and remove a small amount of prostate tissue. ?Prostatic urethral lift. This procedure inserts an implant to push the lobes of the prostate away from the urethra. Follow these instructions at home: Take [id number] and prescription medicines only as told by your health care provider. Monitor your symptoms for any changes. Contact your health care provider with any changes. Avoid drinking large amounts of liquid before going to bed or out in public. Avoid or reduce how much caffeine or alcohol you drink. Give yourself time when you urinate. Keep all follow-up visits. This is important. Contact a health care provider if: You have unexplained back pain. Your symptoms do not get better with treatment. You develop side effects from the medicine you are taking. Your urine becomes very dark or has a bad smell. Your lower abdomen becomes distended and you have trouble passing urine. Get help right away if: You have a fever or chills. You suddenly cannot urinate. You feel light-headed or very dizzy, or you faint. There are large amounts of blood or clots in your urine. Your urinary problems become hard to manage. You develop moderate to severe low back or flank pain. The flank is the side of your body between the ribs and the hip. These symptoms may be an emergency. Get help right away. Call 911. Do not wait to see if the symptoms will go away. Do not drive yourself to the hospital. Summary Benign prostatic hyperplasia (BPH) is an enlarged prostate that is caused by the normal aging process. It is not caused by cancer. An enlarged prostate can press on the urethra. This can make it hard to pass urine. This condition is more likely to develop in men older than 50 years. Get help right away if you suddenly cannot urinate. This information is not intended to replace advice given to you by your health care provider. Make sure you discuss any questions you have with your health care provider. Document Revised: 08/11/2021 Document Reviewed: 08/11/2021 [employer] Patient Education 2022 [email or web address]. Follow Up Care 02/28/2023 13:02:09 With:MELISSA THORNTON, Akbar Bassett, URL Address: [facility] [address], [facility] [place] [address]- When:Within 1 Year(s) Comments:w/cysto [facility] 02-06-2024 History of Present illness Narrative* Bandar Juares DPM - 03/14/2023 1:00 PM EST HPI: Onychomycosis: Patient complains of abnormal appearing toenails. Symptoms have been ongoing for about years, and include discoloration. Previous treatment has included none, with . Known liver disease? no. Exam: General Examination: GENERAL APPEARANCE: awake, aware of surroundings, in no acute distress. Vascular: DORSALIS PEDIS PULSE: 2/4, bilaterally . POSTERIOR TIBIAL PULSE: 2/4, bilaterally . TEMPERATURE GRADIENT: warm to cool . EDEMA: Mild to the ankle bilateral . CAPILLARY FILLING TIME(sec): capillary fill intact bilateral digits less than 3 secs. Neurologic: NEUROLOGIC light touch is intact to the plantar foot. Dermatologic: SKIN FINDINGS: Normal, varicosities to the bilateral lower extremity. Slight opening noted along the plantar aspect of the right 2nd digit. Mild edema to the right 2nd digit. NAIL PATHOLOGY: digits 1-5 bilateral are Thickened, dystrophic, crumbly, elongated and with subungual debris SKIN PATHOLOGY: texture, turgor, hair growth, within normal limits . Orthopedic: FOOT MORPHOLOGY: Rectus . JOINT RANGE OF MOTION: Limited range of motion is noted to the lesser MPJs and digits bilateral . DEFORMITIES: Semi-rigid contracture right 2nd digit. There is residual contracture to the DIPJ, butimprovement in noted in the contracture to the PIPJ. There is widening between the right second andthird digits. Mild contracted form and these 2 through 4 left, 3 and 4 right . PAIN ELICITED WITH PALPATION OF: none PAIN ELICITED WITH ROM: none . MUSCLE STRENGTH 5/5 for all pedal groups tested. Assessments: Onychomycosis Bilateral foot pain Plan: Onychomycosis: 1. Affected nails were trimmed in length and thickness by manual mechanical means. 2. Discussed with the patient the available topical and oral medications for treatment. We specifically discussed the success rate and side effects associated with each treatment. 3. At this time, due to the risks with the oral medications and limited effectiveness of the topical medications, patient would like to just come in as needed for debridements. Discussed that they can schedule a routine appointment every 3 months as needed for the nail care. documented in this [facility]12-12-2023 Evaluation note* Encounter Date Diagnosis Assessment Notes Treatment Notes Treatment Clinical Notes Jan, Warner elijah kid w cr kid I-IV (ICD-10 - I12.9) [employer] Other 11-16-2023 Evaluation note* Encounter Date Diagnosis Assessment Notes Treatment Notes Treatment Clinical Notes Dec, Chronic kidney disease, stage II I (moderate) (ICD-10 - N18.30) He has a CKD due to longstanding hypertension with baseline creatinine around 1.1 to 1.2 mg/dL. Discussed with the importance of good HTN control to slow down the progression of CKD. Dec,en hy kid w cr kid I-IV (ICD-10 - I12.9)Blood pressures controlled. He appears to be euvolemic. Continue current dose of the amlodipine. Dec,Secondary hyperparathyroidism (ICD-10 - N25.81)MBD parameters including calcium, phosphorus, vitamin D and PTH are within the goal. Dec,Hyperlipidemia (ICD-10 - E78.5)control not to goalContinue statins and check lipid profiles Dec,rediabetes (ICD-10 - R73.03)Currently on diet control. Advised to continue to follow with PCP Dec,nemia (ICD-10 - D64.9)Hemoglobin is within the goal. He has adequate iron stores. We will check B12, folate and paraproteinemia work-up. Advised him continue to follow with PCP for anemia Dec,roteinuria (ICD-10 - R80.9)He has a trace proteinuria likely due to the hypertensive nephrosclerosis and prediabetes. Continuelisinopril Dec,Hyperuricemia (ICD-10 - E79.0)He has hyperuricemia due to the CKD. Denies any recent gout flare. We will continue to monitor without medication. [employer] Other 11-14-2023 Evaluation note* Encounter Date Diagnosis Assessment Notes Treatment Notes Treatment Clinical Notes Dec, Hypertension (ICD-10 - I10) Blood pressure is controlled. Continue with above medications daily as directed. Dec,Hyperglycemia (ICD-10 - R73.9)Discussed blood sugar results with patient today. Glucose is 97. HgA1C is 6.0. I did recommend thathe watch his intake of carbs and sugars. Stay active. Dec,Hyperlipidemia (ICD-10 - E78.5)Discussed cholesterol results with patient today. Total is 134. HDL is 43. LDL is 68. Triglyceridesare 117. VLDL is 23. Continue with above medications daily as directed. Dec,nemia (ICD-10 - D64.9)His HGB is 12.7. Iron is 86. Ferritin is 237.4. His stool for occult blood is negative. I suspect his HGB is down due to his kidney studies, I would like to see what Dr. Pichardo says about this. Dec,Other abnormal blood chemistry (ICD-10 - R79.89)He will see Dr. Pichardo on 12/22/22 for evaluation. His BUN is 22. Creatinine is 1.16. EGFR is >60. 14 Dec, 2022Elevated alkaline phosphatase level (ICD-10 - R74.8)His alk phos level was 166. Will order alk phos isoenzymes with his next lab draw. His Vitamin D level is 54.7. He is to continue with this Vitamin D supplement daily. Dec,Other salvage determiner (current) drug therapy (ICD-10 - Z79.899) Dec,Elevated PSA (ICD-10 - R97.20)He last had a PSA level drawn in August (2022). His total PSA was 2.4. Free PSA was 0.5. % Free PSA was 21. He is to continue to follow with Dr. Torres as scheduled. Dec,Weight loss (ICD-10 - R63.4)He has lost three pounds since last seen at urgent care, but on our scale his weight is up. 14 Dec,ERD (gastroesophageal reflux disease) (ICD-10 - K21.9)He is to continue with above medication daily as directed. Dec,Lumbar pain (ICD-10 - M54.50)He voices that he has pain in his back. He did have pain down his right leg prior to his surgery but now the pain is only in his back. He was getting injections, but they did not seem to be working, so he stopped having them done. He was put on Gabapentin but this does not seem to be doing anythingfor him. He is going to look into acupuncture. I did advise him that he can look into acupuncture and see if this is something that he would like to try. Dec,OtherHis urine did have ketones in it. I did recommend that he drink plenty of water daily. [employer] Other 11-07-2023 NoteHNO ID: [id number] Author: Symone Woody APRN.COOKEE Service: ? Author Type: Nurse Practitioner Type: Progress Notes Filed: 12/13/2022 2:53 PM Note Text: Follow up Visit Patient Name: Indiana Hines MR #: [id number] Age: [age] year old Date: December 13, 2022 Referred by: Patient was last seen on 09/14/22 for the diagnosis of Spinal stenosis, lumbar region with neurogenic claudication Lumbar spondylosis. The following plan of care was recommended 1) Schedule Caudal epidural steroid injection - neurogenic claudication 2) Continue with tylenol arthritis over the counter per instructions 3) RTC 4-6 weeks after injection Was there relief from this treatment? No. How long did the patient get relief from this treatment? He did not get relief. What percentage of pain did the patient feel was relieved with this treatment? 0% Treatment agreement on file: No Last toxicology screen done:N/A This Episode: Pattern: Daily. Character: Aching. Severity: VAS Pain: 8/10 Current Location: Lower back Radiation: non-radiating. Associated Signs/Symptoms: None. Sensory/Motor Changes: Difficulty using stairs or Tripping. Changes in Bowel/Bladder Control?: No. Number of hours of sleep per night: 6-7 hours Is sleep interrupted by pain? No. Patient feels safe at home: Yes Allergies: ALLERGIES Allergen Reactions Nafcillin Other: See Comments affected kidneys per pt and family Current Outpatient Medications: minocycline (MINOCIN, DYNACIN) 100 mg capsule Take 1 capsule by mouth once daily. tiZANidine (ZANAFLEX) 2 mg tablet Take 1 tablet by mouth twice daily as needed. gabapentin (NEURONTIN) 300 mg capsule 1 Capsule FOR 3 NIGHTS, THEN 2 CAPSULES FOR 3 NIGHTS THEN 3 CAPSULES EVERY NIGHT ferrous sulfate (IRON ORAL) Take 65 mg by mouth three times a week. docosahexaenoic acid/epa (FISH OIL ORAL) Take 1,000 mg by mouth once daily. lisinopril (ZESTRIL, PRINIVIL) 5 mg tablet TK 1 T PO QD acetaminophen (TYLENOL) 500 mg tablet Take 2 tablets by mouth every 8 hours as needed. COQ10, UBIQUINOL, ORAL Take 200 mg by mouth once daily. esomeprazole (NEXIUM) 40 mg capsule Take 40 mg by mouth once daily. therapeutic multivitamin (THERA VITAMIN) tablet Take 1 tablet by mouth once daily. ascorbic acid (VITAMIN C) 500 mg tablet Take 1 tablet by mouth twice daily with meals. amLODIPine (NORVASC) 5 mg tablet Take 1 tablet by mouth once daily. rosuvastatin (CRESTOR) 5 mg tablet Take 1 tablet by mouth daily at bedtime. Digital Account Supervisor: Kelly Lyon MA Imagin06/19/2019 MRI Lumbar Spine RESULT: Counting reference: Lumbosacral junction. For the purposes of this report, L4-5 is considered the level of the iliac crest and assume there are 5 lumbar-type vertebrae. Anatomic variant: None. Alignment: Mild scoliotic curvature convex right, apex L3-L4. Sagittal alignment is grossly normal. Bone marrow signal/fracture: Old Schmorl's nodes lower L2 and upper L3. No other pathologic marrow infiltration. Conus: Distal cord terminates normally at L1-L2. Paraspinal soft tissues: Obesity. No paraspinal masses. Lower thoracic spine: Canal and foramina are normally patent at T10-T11 and T11-T12. T12-L1: Canal and foramina are patent. L1-L2: Mild loss of disc height, partial loss of T2 hyperintensity in the disc, and facet degenerative change. Central thecal sac is patent. Foramina are patent. L2-L3: Disc bulging, facet degenerative change. Moderate canal narrowing, particularly left lateral recess. Mild right lateral recess narrowing. Loss of disc height and facet degenerative change contributes to severe bilateral foraminal narrowing. L3-L4: Disc bulging and facet degenerative change. Moderate-severe narrowing of spinal canal. Severe left and moderate right lateral recess narrowing likely contributing to radiculopathy. Loss of disc height and bony degenerative change contributes to moderate bilateral foraminal narrowing. L4-L5: Disc bulging and facet degenerative change. Moderate to severe spinal stenosis including the lateral recesses. Neural foramina remain patent. L5-S1: Disc bulging and facet degenerative change. Shallow central protrusion. No direct compression of either descending S1 nerve root sleeve. Narrowing of the central thecal sac primarily related to epidural lipomatosis. Right neural foramen is patent. Moderate to severe left foraminal narrowing. Sacrum and iliac wings: No marrow edema. Procedures: 11/07/22 Dr. Yessy Lo Caudal ANNIE OARRS: PDMP website checked and validated. No controlled substance prescriptions were reported. 12/13/2022 by Symone Woody APRN.CNP Current Medications: Tylenol OTC Anticoagulation: none DM: no Physical Therapy: 2019 GFR: none recent TENA: 09/14/22 Symone Woody APRN.COOKEE PHYSICAL EXAMINATION: There were no vitals taken for this visit. General appearance: antalgic, flexed forward gait, well appearing, alert, and in no acute d (more content not included)...[facility] 12-13-2022 Instructions* Patient Instructions* Symone Woody APRN.CNP - 12/13/2022 2:44 PM EST Plan: 1) Frequent rest breaks to sit if having pain with walking/standing 2) Restart gabapentin 600mg at bedtime, #30, refill 2 3) Continue with home exercises/stretches 4) RTC 3 months Please watch for the following red flag symptoms: -weight loss, fevers -chills, night time awakening of pain - bowel bladder incontinence (difficulty holding your urine or stool) -saddle anesthesia (numbness and tingling in your groin area) - progressive numbness or weakness. If these symptoms should arise you should seek emergency treatment. Symone Woody APRN.CNP December 13, 2022 documented [facility] History of Present illness Narrative* Symone Woody APRN.CNP - 12/13/2022 2:00 PM EST Follow up Visit Patient Name: Indiana Hines MR #: [id number] Age: [age] year old Date: December 13, 2022 Referred by: Patient was last seen on 09/14/22 for the diagnosis of Spinal stenosis, lumbar region with neurogenicclaudication Lumbar spondylosis. The following plan of care was recommended 1) Schedule Caudal epidural steroid injection - neurogenic claudication 2) Continue with tylenol arthritis over the counter per instructions 3) RTC 4-6 weeks after injection Was there relief from this treatment? No. How long did the patient get relief from this treatment? He did not get relief. What percentage of pain did the patient feel was relieved with this treatment? 0% Treatment agreement on file: No Last toxicology screen done:N/A This Episode: Pattern: Daily. Character: Aching. Severity: VAS Pain: 8/10 Current Location: Lower back Radiation: non-radiating. Associated Signs/Symptoms: None. Sensory/Motor Changes: Difficulty using stairs or Tripping. Changes in Bowel/Bladder Control?: No. Number of hours of sleep per night: 6-7 hours Is sleep interrupted by pain? No. Patient feels safe at home: Yes Allergies: ALLERGIES Allergen Reactions Nafcillin Other: See Comments affected kidneys per pt and family Current Outpatient Medications: minocycline (MINOCIN, DYNACIN) 100 mg capsule Take 1 capsule by mouth once daily. tiZANidine (ZANAFLEX) 2 mg tablet Take 1 tablet by mouth twice daily as needed. gabapentin (NEURONTIN) 300 mg capsule 1 Capsule FOR 3 NIGHTS, THEN 2 CAPSULES FOR 3 NIGHTS THEN 3 CAPSULES EVERY NIGHT ferrous sulfate (IRON ORAL) Take 65 mg by mouth three times a week. docosahexaenoic acid/epa (FISH OIL ORAL) Take 1,000 mg by mouth once daily. lisinopril (ZESTRIL, PRINIVIL) 5 mg tablet TK 1 T PO QD acetaminophen (TYLENOL) 500 mg tablet Take 2 tablets by mouth every 8 hours as needed. COQ10, UBIQUINOL, ORAL Take 200 mg by mouth once daily. esomeprazole (NEXIUM) 40 mg capsule Take 40 mg by mouth once daily. therapeutic multivitamin (THERA VITAMIN) tablet Take 1 tablet by mouth once daily. ascorbic acid (VITAMIN C) 500 mg tablet Take 1 tablet by mouth twice daily with meals. amLODIPine (NORVASC) 5 mg tablet Take 1 tablet by mouth once daily. rosuvastatin (CRESTOR) 5 mg tablet Take 1 tablet by mouth daily at bedtime. Digital Account Supervisor: Kelly Lyon MA Imagin06/19/2019 MRI Lumbar Spine RESULT: Counting reference: Lumbosacral junction. For the purposes of this report, L4-5 is considered the level of the iliac crest and assume there are 5 lumbar-type vertebrae. Anatomic variant: None. Alignment: Mild scoliotic curvature convex right, apex L3-L4. Sagittal alignment is grossly normal. Bone marrow signal/fracture: Old Schmorl's nodes lower L2 and upper L3. No other pathologic marrow infiltration. Conus: Distal cord terminates normally at L1-L2. Paraspinal soft tissues: Obesity. No paraspinal masses. Lower thoracic spine: Canal and foramina are normally patent at T10-T11 and T11-T12. T12-L1: Canal and foramina are patent. L1-L2: Mild loss of disc height, partial loss of T2 hyperintensity in the disc, and facet degenerative change. Central thecal sac is patent. Foramina are patent. L2-L3: Disc bulging, facet degenerative change. Moderate canal narrowing, particularly left lateral recess. Mild right lateral recess narrowing. Loss of disc height and facet degenerative change contributes to severe bilateral foraminal narrowing. L3-L4: Disc bulging and facet degenerative change. Moderate-severe narrowing of spinal canal. Severe left and moderate right lateral recess narrowing likely contributing to radiculopathy. Loss of disc height and bony degenerative change contributes to moderate bilateral foraminal narrowing. L4-L5: Disc bulging and facet degenerative change. Moderate to severe spinal stenosis including the lateral recesses. Neural foramina remain patent. L5-S1: Disc bulging and facet degenerative change. Shallow central protrusion. No direct compression of either descending S1 nerve root sleeve. Narrowing of the central thecal sac primarily related to epidural lipomatosis. Right neural foramen is patent. Moderate to severe left foraminal narrowing. Sacrum and iliac wings: No marrow edema. Procedures: 11/07/22 Dr. Yessy Lo Caudal ANNIE OARRS: PDMP website checked and validated. No controlled substance prescriptions were reported. 12/13/2022 by Symone Woody APRN.COOKEE Current Medications: Tylenol OTC Anticoagulation: none DM: no Physical Therapy: 2019 GFR: none recent ETNA: 09/14/22 Symone Woody APRN.COOKEE PHYSICAL EXAMINATION: There were no vitals taken for this visit. General appearance: antalgic, flexed forward gait, well appearing, alert, and in no acute distress Skin: skin color, texture, turgor normal, no rashes or lesions HEENT: normocephalic, atraumatic, sclera non-icteric Lungs: Respirations even and non-labored. Cardiovascular:Regular rate and rhythm GI: Soft, non-tender, non-distended. Musculoskeletal: Neck: Supple; good ROM., Back: No pain on palpation of the lumbar spine. Full ROM without reproducible pain. Straight leg raising test negative bilaterally. , SI Joints: No tenderness over the bilateral SI Joints. , Joints: all Normal Neuro: alert and oriented x 3 HPI & ASSESSMENT: Indiana Hines is a 77 year old male who presents for follow up low back pain in the setting of lumbar spinal canal stenosis. He is an established patient of Dr. Yessy Lo. , who was last seen on 09/14/22 by Symone Woody APRN.CNP for low back pain. He had a Cadual ANNIE on 11/07/[address] Yessy Lo and reports no relief. He reports lown back pain, which he describes as aching, which does not radiate to lower extremities. He reports positive shopping cart sign - correlating with MRI spinal canal stenosis. He rates hispain at 8/10 currently. The pain is aggravated by walking, standing. The pain is mitigated by sitting. He is currently taking - see above. He denies any red flag symptoms including weight loss, fevers, chills, night time awakening of pain, bowel bladder incontinence, saddle anesthesia, progressive numbness or weakness. We discussed thatif these symptoms should arise she should seek emergency treatment. On exam 77yo male, alert and oriented fully. No acute distress. He walks with a very flexed forwardantalgic gait. He is unable to walk on heels. Full ROM lumbar spine without pain. No tenderness on palpation whole back. SLR negative bilaterally. Strength 5/5 and sensation are equal and intact bilateral upper and lower extremities. Impression: (M48.062) Spinal stenosis of lumbar region with neurogenic claudication (primary encounter diagnosis) Plan: 1) Frequent rest breaks to sit if having pain with walking/standing 2) Restart gabapentin 600mg at bedtime, #30, refill 2 3) Continue with home exercises/stretches 4) RTC 3 months I spent a total of 29 minutes on the date of the service which included preparing to see the patient, [id number] patient care, completing clinical documentation, performing a medically appropriate examination, and ordering medications, tests, or procedures. Symone Woody APRN.CNP December 13, 2022 documented in this [facility]30-[facility] Miscellaneous Notes* Telephone Encounter - Darshana Crump HUC - 10/05/2022 10:55 AM EDT calling. Procedure for tomorrow 8/31/23 needs rescheduled. Patient had a different procedure today involving steroids and was told he needed to wait 3 weeks. Please call documented in this encounterMer[facility]08-30-[facility] Hospital Discharge instructions Patient Education 10/05/2022 08:11:36 Bladder Cancer Bladder Cancer Bladder cancer is a condition where abnormal tissue (a tumor) grows in the bladder. The bladder is the organ that holds urine. Two tubes (ureters) carry urine from the kidneys to the bladder. The bladder wall is made of layers of tissue. Cancer that spreads through these layers of the bladder wall becomes more difficult to treat. What increases the risk? The following factors may make you more likely to develop this condition: Smoking. Working where there are risks (occupational exposures), such as working with rubber, leather, clothing fabric, dyes, chemicals, or paint. Being 55 years of age or older. Being male. Having long-term bladder inflammation. Having a history of cancer. This includes: ?A family history of bladder cancer. ?Having had bladder cancer before. ?Having had certain treatments for cancer before, such as: ?Medicines to kill cancer cells (chemotherapy). ?Strong X-ray beams or high-energy capsules to kill cancer cells and shrink tumors (radiation therapy). Having been exposed to arsenic. This is a poisonous substance. What are the signs or symptoms? Early symptoms of this condition include: Blood in your urine. Pain when urinating. Infections of your urinary system (urinary tract infections or UTIs) that happen often. Having to urinate sooner or more often than normal. Late symptoms of this condition include: Not being able to urinate. Pain on one side of your lower back. Loss of appetite. Weight loss. Tiredness (fatigue). Swelling in your feet. Bone pain. How is this diagnosed? This condition is diagnosed based on: Your medical history. A physical exam. Lab tests, such as urine tests. Imaging tests. Your symptoms. You may also have other tests or procedures, such as: A cystoscopy. This involves putting a narrow tube into your urethra. The urethra is the organ that carries urine from your bladder to the outside of your body. This procedure is done to view the lining of your bladder for tumors. A biopsy. This involves removing a tissue sample to look at under a microscope to check for cancer. Blood tests or imaging tests may be needed. These show how far into the bladder wall cancer has grown, and if cancer has spread to any other parts of your body. Tests may include: CT scan. MRI. Bone scan. X-ray. How is this treated? Your health care provider may recommend one or more types of treatment based on the stage of your cancer. The most common treatments are: Surgery to remove the cancer. Types of surgeries include: ?Removing a tumor on the inside wall of the bladder (transurethral resection). ?Removing the bladder (cystectomy). Radiation therapy. This is often combined with chemotherapy. Chemotherapy. Immunotherapy. This uses medicines to help your body's disease-fighting system (immune system) destroy cancer cells. Follow these instructions at home: Take ajus-rfj-hxorrip and prescription medicines only as told by your health care provider. If you were prescribed an antibiotic medicine, take it as told by your health care provider. Do notstop using the antibiotic even if you start to feel better. Eat a healthy diet. Some treatments might affect your appetite. Do not use any products that contain nicotine or tobacco. These products include cigarettes, chewing tobacco, and vaping devices, such as e-cigarettes. If you need help quitting, ask your health careprovider. Consider joining a support group. This may help you learn to deal with the stress of having bladdercancer. Tell your cancer care team if you develop side effects. Your team may be able to recommend ways to get relief. Keep all follow-up visits. This is important. Where to find more information Canadian Cancer Society (ACS): cancer.org National Cancer [place] (NCI): cancer.gov Contact a health care provider if: You have symptoms of a UTI. These include: ?Fever. ?Chills. ?Weakness. ?Muscle aches. ?Pain in your abdomen. ?Urge to urinate that is stronger and happens more often than normal. ?Burning in the bladder or urethra when you urinate. Get help right away if: There is blood in your urine. You cannot urinate. You have severe pain or other symptoms that do not go away. Summary Bladder cancer is a condition where tumors grow in the bladder. Diagnosis is based on your medical history, a physical exam, lab tests, imaging tests, and your symptoms. Your health care provider may recommend one or more types of treatment based on the stage of your cancer. Consider joining a support group. This may help you learn to deal with the stress of having bladdercancer. This information is not intended to replace advice given to you by your health care provider. Make sure you discuss any questions you have with your health care provider. Document Revised: 01/03/2022 Document Reviewed: 01/03/2022 [employer] Patient Education 2022 [email or web address]. Follow Up Care 09/12/2022 10:39:22 With:SOLE KWOK, DUSTY Mcintyre, URL Address: [address] [place] [address] [phone] When: Unknown Comments:6 mos for cysto [facility] 08-16-2023 Hospital Discharge instructions Patient Education 09/21/2022 10:20:04 Bladder Cancer Bladder Cancer Bladder cancer is a condition where abnormal tissue (a tumor) grows in the bladder. The bladder is the organ that holds urine. Two tubes (ureters) carry urine from the kidneys to the bladder. The bladder wall is made of layers of tissue. Cancer that spreads through these layers of the bladder wall becomes more difficult to treat. What increases the risk? The following factors may make you more likely to develop this condition: Smoking. Working where there are risks (occupational exposures), such as working with rubber, leather, clothing fabric, dyes, chemicals, or paint. Being 55 years of age or older. Being male. Having long-term bladder inflammation. Having a history of cancer. This includes: ?A family history of bladder cancer. ?Having had bladder cancer before. ?Having had certain treatments for cancer before, such as: ?Medicines to kill cancer cells (chemotherapy). ?Strong X-ray beams or high-energy capsules to kill cancer cells and shrink tumors (radiation therapy). Having been exposed to arsenic. This is a poisonous substance. What are the signs or symptoms? Early symptoms of this condition include: Blood in your urine. Pain when urinating. Infections of your urinary system (urinary tract infections or UTIs) that happen often. Having to urinate sooner or more often than normal. Late symptoms of this condition include: Not being able to urinate. Pain on one side of your lower back. Loss of appetite. Weight loss. Tiredness (fatigue). Swelling in your feet. Bone pain. How is this diagnosed? This condition is diagnosed based on: Your medical history. A physical exam. Lab tests, such as urine tests. Imaging tests. Your symptoms. You may also have other tests or procedures, such as: A cystoscopy. This involves putting a narrow tube into your urethra. The urethra is the organ that carries urine from your bladder to the outside of your body. This procedure is done to view the lining of your bladder for tumors. A biopsy. This involves removing a tissue sample to look at under a microscope to check for cancer. Blood tests or imaging tests may be needed. These show how far into the bladder wall cancer has grown, and if cancer has spread to any other parts of your body. Tests may include: CT scan. MRI. Bone scan. X-ray. How is this treated? Your health care provider may recommend one or more types of treatment based on the stage of your cancer. The most common treatments are: Surgery to remove the cancer. Types of surgeries include: ?Removing a tumor on the inside wall of the bladder (transurethral resection). ?Removing the bladder (cystectomy). Radiation therapy. This is often combined with chemotherapy. Chemotherapy. Immunotherapy. This uses medicines to help your body's disease-fighting system (immune system) destroy cancer cells. Follow these instructions at home: Take gsyy-kuc-krvfimm and prescription medicines only as told by your health care provider. If you were prescribed an antibiotic medicine, take it as told by your health care provider. Do notstop using the antibiotic even if you start to feel better. Eat a healthy diet. Some treatments might affect your appetite. Do not use any products that contain nicotine or tobacco. These products include cigarettes, chewing tobacco, and vaping devices, such as e-cigarettes. If you need help quitting, ask your health careprovider. Consider joining a support group. This may help you learn to deal with the stress of having bladdercancer. Tell your cancer care team if you develop side effects. Your team may be able to recommend ways to get relief. Keep all follow-up visits. This is important. Where to find more information Canadian Cancer Society (ACS): cancer.org National Cancer [place] (NCI): cancer.gov Contact a health care provider if: You have symptoms of a UTI. These include: ?Fever. ?Chills. ?Weakness. ?Muscle aches. ?Pain in your abdomen. ?Urge to urinate that is stronger and happens more often than normal. ?Burning in the bladder or urethra when you urinate. Get help right away if: There is blood in your urine. You cannot urinate. You have severe pain or other symptoms that do not go away. Summary Bladder cancer is a condition where tumors grow in the bladder. Diagnosis is based on your medical history, a physical exam, lab tests, imaging tests, and your symptoms. Your health care provider may recommend one or more types of treatment based on the stage of your cancer. Consider joining a support group. This may help you learn to deal with the stress of having bladdercancer. This information is not intended to replace advice given to you by your health care provider. Make sure you discuss any questions you have with your health care provider. Document Revised: 01/03/2022 Document Reviewed: 01/03/2022 [employer] Patient Education 2022 [email or web address]. Follow Up Care 09/12/2022 10:35:16 With:SOLE KWOK, DUSTY Mcintyre, URL Address: [address] [place] [address] [phone] When: Unknown Comments:BCG #2 on 09/28/22 [facility] 08-11-2023 Evaluation note* Encounter Date Diagnosis Assessment Notes Treatment Notes Treatment Clinical Notes Sep, Right foot pain (ICD-10 - M79.67 1) Patient would like x-ray to rule out fracture. Negative x-ray without any acute bony findings. Sep,ontusion of right foot, initial encounter (ICD-10 - S90.31XA) Discussed with patient negative x-ray and exam consistent with contusion to right foot. Ice and elevation encouraged. Continue Tylenol. Follow-up with PCP if not gradually improving over the next 10 to 14 days. Patient verbalized understanding of treatment plan. [employer] Other 08-09-2023 NoteHNO ID: [id number] Author: Symone Woody APRN.[facility] Service: ? Author Type: Nurse Practitioner Type: Progress Notes Filed: 09/14/2022 12:38 PM Note Text: Follow up Visit Patient Name: Inidana Hines MR #: [id number] Age: [age] year old Date: September 14, 2022 Referred by: Dr. Handley Patient was last seen on 11/20/2019 for the diagnosis of chronic low back in setting of advanced spondylosis and spinal stenosis and neck pain. The following plan of care was recommended Repeat Bilateral Lumbar L4-L5, L5-S1 median branch block If back pain persist consider Bilateral TFESI L5-S1 RTC in 12 weeks Lumbar bilateral 11/29/2019 Was there relief from this treatment? No. How long did the patient get relief from this treatment? none. What percentage of pain did the patient feel was relieved with this treatment? none Treatment agreement on file: No Last toxicology screen done:N/A This Episode: Pattern: Constant. Character: Sharp and Aching. Severity: VAS Pain: 0/10 Current Location: low back pain Radiation: non radiating Associated Signs/Symptoms: None. Sensory/Motor Changes: None. Changes in Bowel/Bladder Control?: No. Number of hours of sleep per night: 6 Is sleep interrupted by pain? No. Patient feels safe at home: Yes Allergies: ALLERGIES Allergen Reactions Nafcillin Other: See Comments affected kidneys per pt and family Current Outpatient Medications: minocycline (MINOCIN, DYNACIN) 100 mg capsule Take 1 capsule by mouth once daily. tiZANidine (ZANAFLEX) 2 mg tablet Take 1 tablet by mouth twice daily as needed. gabapentin (NEURONTIN) 300 mg capsule 1 Capsule FOR 3 NIGHTS, THEN 2 CAPSULES FOR 3 NIGHTS THEN 3 CAPSULES EVERY NIGHT ferrous sulfate (IRON ORAL) Take 65 mg by mouth three times a week. docosahexaenoic acid/epa (FISH OIL ORAL) Take 1,000 mg by mouth once daily. lisinopril (ZESTRIL, PRINIVIL) 5 mg tablet TK 1 T PO QD acetaminophen (TYLENOL) 500 mg tablet Take 2 tablets by mouth every 8 hours as needed. COQ10, UBIQUINOL, ORAL Take 200 mg by mouth once daily. esomeprazole (NEXIUM) 40 mg capsule Take 40 mg by mouth once daily. therapeutic multivitamin (THERA VITAMIN) tablet Take 1 tablet by mouth once daily. ascorbic acid (VITAMIN C) 500 mg tablet Take 1 tablet by mouth twice daily with meals. amLODIPine (NORVASC) 5 mg tablet Take 1 tablet by mouth once daily. rosuvastatin (CRESTOR) 5 mg tablet Take 1 tablet by mouth daily at bedtime. Digital Account Supervisor: Erinn Overton MA Imagin06/19/19 MRI Lumbar spine RESULT: Counting reference: Lumbosacral junction. For the purposes of this report, L4-5 is considered the level of the iliac crest and assume there are 5 lumbar-type vertebrae. Anatomic variant: None. Alignment: Mild scoliotic curvature convex right, apex L3-L4. Sagittal alignment is grossly normal. Bone marrow signal/fracture: Old Schmorl's nodes lower L2 and upper L3. No other pathologic marrow infiltration. Conus: Distal cord terminates normally at L1-L2. Paraspinal soft tissues: Obesity. No paraspinal masses. Lower thoracic spine: Canal and foramina are normally patent at T10-T11 and T11-T12. T12-L1: Canal and foramina are patent. L1-L2: Mild loss of disc height, partial loss of T2 hyperintensity in the disc, and facet degenerative change. Central thecal sac is patent. Foramina are patent. L2-L3: Disc bulging, facet degenerative change. Moderate canal narrowing, particularly left lateral recess. Mild right lateral recess narrowing. Loss of disc height and facet degenerative change contributes to severe bilateral foraminal narrowing. L3-L4: Disc bulging and facet degenerative change. Moderate-severe narrowing of spinal canal. Severe left and moderate right lateral recess narrowing likely contributing to radiculopathy. Loss of disc height and bony degenerative change contributes to moderate bilateral foraminal narrowing. L4-L5: Disc bulging and facet degenerative change. Moderate to severe spinal stenosis including the lateral recesses. Neural foramina remain patent. L5-S1: Disc bulging and facet degenerative change. Shallow central protrusion. No direct compression of either descending S1 nerve root sleeve. Narrowing of the central thecal sac primarily related to epidural lipomatosis. Right neural foramen is patent. Moderate to severe left foraminal narrowing. Sacrum and iliac wings: No marrow edema. Procedures: None recent OARRS: PDMP website checked and validated. All prescriptions have been APPROPRIATELY filled. No suspicious activity was identified. 09/14/2022 by Symone Woody APRN.COOKEE Current Medications: Tylenol arthritis OTC Anticoagulation: none DM: no Physical Therapy: 2019 GFR: >60 TENA: 11/20/2019 Kait Medina APRN.BRII PHYSICAL EXAMINATION: BP 149/87 Wt 255 lb (115.7kg) General appearance: antalgic, flexed forward gait, well appearing, alert, and in no acute distress Skin: skin color, texture, (more content not included)...[facility]08-02-2023 Hospital Discharge instructions Patient Education 09/07/2022 07:54:18 Cancer Screening for Men Cancer Screening for Men A cancer screening is a test or exam that checks for cancer. Your health care provider will recommend specific cancer screenings based on your age, medical history (including risk factors), and family history of cancer. Work with your health care provider to create a cancer screening schedule that protects your health. Who should have screening? All men should be considered for screening of certain cancers, including colorectal cancer, prostate cancer, lung cancer, and skin cancer. Your health care provider may recommend screenings for othertypes of cancer if: You had cancer before. You have a family member with cancer. You have abnormal genes that could increase the risk of cancer. You have risk factors for certain cancers, such as current or past use of tobacco products, or being overweight. When you should be screened for cancer depends on: Your age. Your medical history and your family's medical history. Certain lifestyle factors, such as smoking or other use of tobacco products. Environmental exposure, such as to asbestos. How is screening done? Colorectal cancer All adults should have screenings starting at age 45 and continuing until age 75. Your health care provider may recommend screening before age 45. You will have tests every 1 10 years, depending on your results and the type of screening test. People at increased risk should start screening at an earlier age. Talk with your health care provider about which screening test is right for you and how often you should be screened. Colorectal cancer screening looks for cancer or for growths called polyps that often form before cancer starts. Tests to look for cancer or polyps include: Colonoscopy or flexible sigmoidoscopy. For these procedures, a flexible tube with a small camera isinserted into the rectum. CT colonography. This test uses X-rays and a contrast dye to check the colon for polyps. If a polypis found, you may need to have a colonoscopy so the polyp can be located and removed. Tests to look for cancer in the stool (feces) include: Guaiac-based fecal occult blood test (FOBT). This test can find blood in stool. It can be done at home with a kit. Fecal immunochemical test (FIT). This test can find blood in stool. For this test, you will need tocollect stool samples at home. Stool DNA test. This test looks for blood in stool and any changes in DNA that can lead to colon cancer. For this test, you will need to collect a stool sample at home and send it to a lab. Prostate cancer Prostate cancer screening for men with average risk may start at age 50. Men with risk factors may need to be screened earlier, at ages 40 45. Talk with your health care provider about whether screening is right for you and, if so, how often you should be screened. Prostate cancer screening is done with blood tests and a digital rectal exam. During this exam, a health care provider uses a gloved finger to check prostate size. You may need to be screened for prostate cancer if: You have risk factors for prostate cancer, such as being or having a close family member with prostate cancer. You have had gene changes or a genetic condition that was passed on to you from a parent (inherited). These gene changes or genetic conditions include BRCA1 or BRCA2 gene mutations or Dinero syndrome. You have symptoms of prostate cancer, such as problems urinating or problems getting or keeping an erection (erectile dysfunction). When you have been screened for prostate cancer, future screening may be recommended based on the results of your blood tests. Lung cancer Lung cancer screening is done with a CT scan that looks for abnormal changes in the lungs. Discuss lung cancer screening with your health care provider if you are 50 80 years old and if any of the following apply to you: You currently smoke. You used to smoke heavily. You have a smoking history of 1 pack of cigarettes a day for 20 years or 2 packs a day for 10 years. You have quit smoking within the past 15 years. You may need to be screened every year if you smoke heavily or if you used to smoke. Skin cancer Skin cancer screening is done by checking the skin for unusual moles or spots and any changes in existing moles. Your health care provider should check your skin for signs of skin cancer at every physical exam. You should check your skin every month and tell your health care provider right away if anything looks unusual. Men with a vuueab-ulyj-pfwgye risk for skin cancer may want to see a parking enforcement specialist (flagman) for an annual body check. What are the benefits of screening? Cancer screening is done to look for cancer in the very early stages, before it spreads and becomesharder to treat and before you would start to notice symptoms. Finding cancer early improves the chances of successful treatment. It may save your life. Where to find more information [employer] Cancer Society: www.cancer.org Centers for Disease Control and Prevention: www.cdc.gov National Cancer [place]: www.cancer.gov Contact a health care provider if: You have concerns about any signs or symptoms of cancer. These may include: Skin problems. You may have: ?Moles of an unusual shape or color. ?Changes in existing moles. ?A sore on your skin that does not heal. Tiredness (fatigue) that does not go away. Losing weight without trying. Blood in your urine or stool. Problems with urination. You may have: ?Changes in urination habits. ?Painful urination. Painful ejaculation. Problems with coughing or breathing. These may include: ?Coughing or trouble breathing that does not go away. ?Coughing up blood. Frequent pain or cramping in your abdomen. Summary Your health care provider will recommend specific cancer screenings based on your age, medical history, and family history of cancer. Work with your health care provider to create a cancer screening schedule that protects your health. Finding cancer early improves the chances of successful treatment. It may save your life. Contact a health care provider if you have concerns about any signs or symptoms of cancer. This information is not intended to replace advice given to you by your health care provider. Make sure you discuss any questions you have with your health care provider. Document Revised: 06/21/2021 Document Reviewed: 12/20/2019 [employer] Patient Education 2022 [email or web address]. Follow Up Care 03/09/2022 08:16:15 With:Akbar TORRES MD, URL Address: [facility] [address], [place] [address]- [phone] When: Unknown Comments:BCG #1 of 3 [facility] 06-29-2023 NoteHNO ID: [id number] Author: Paxton Foster MD Service: ? Author Type: Physician Type: Progress Notes Filed: 08/04/2022 1:27 PM Note Text: Ortho Hip Follow Up Note Narrative Referring Provider: No referring provider defined for this encounter. PCP: Juvencio Sanchez, DO IMPRESSION/PLAN: Impressions indicate: 76 year old s/p Revision Right Total Hip Replacement completed on 06/16/2015. Recent Surgeries this specialty 06/16/2015 (7yr) ARTHROPLASTY TOTAL HIP CONVERSION AFTER PREVIOUS HIP SURG (Right) Paxton Foster MD; Jam Barney (Fel) - Posted 03/17/2015 (7yr) REMOVAL HIP PROSTHESIS COMPLICATED INCL. TOTAL HIP PROSTHESIS (Right) Paxton Foster MD; Nicho (Clarisa) Krystle - Posted PAIN EVALUATION No data found in the last 1 encounters. IMPRESSION: Right hip is doing well. Had left TKA in 1999 and Right TKA 03/17/[address] Abdi in [place], [place]. Started to develop some discomfort in the left knee about 1 year ago. PLAN: Possible early loosening of left TKA. Will continue to monitor. Follow up in 1 year with new x-rays unless change in symptoms. Patient Reassurance: Patient reassured and supported. All questions answered. 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 STATUS POST: BMI: Body mass index is 33.64 kg/m?. Post operative recovery was complicated by uneventful/none. Readmission(s) since surgery (90 days post)? No ED Visits AND Hospitalizations - Last 180 days None Patient rates their condition as improving. Does the patient still experience pain? see MIDAS Form. Post Op discharge patient location: in home. Functional Assessment is as follows: completed course of therapy. Functional difficulties: None. Pain Medication: None Physical Therapy Data 06/17/2015 06/19/2019 06/25/2019 Therapist that will oversee plan of care Jodie Atkinson Emily - Prognosis - Fair - Prognosis fair - clinical presentation;chronic nature of impairments;advanced age - Frequency - 1x/week - Duration - 4 weeks - Total number of visits - 4 - Planned treatment interventions - Therapeutic exercise;Neuromuscular re-education;Self-long term management;Patient/Family/Caregiver Education - Plan for next visit - hip ER stretch; flexion bias; PPT with march, lateral glide R->L discuss standing weight shift - loading left too much EXAM: POST OP HIP RIGHT POST-OPERATIVE HIP SKIN: Appropriate postop appearance and Incision intact. Range of Motion: Pain Free Neurovascular Status: Sensation Intact, Moves foot and ankle up AND down, and 2+ dorsalis pedis Gait: Normal, the patient did not have trouble getting onto the exam table. HIP EXAM: Right: ROM: Extension: Normal Flexion: 110 degrees Internal Rotation: 30 degrees External Rotation: 30 degrees Abduction: 40 degrees Adduction: 30 degrees Strength: Abduction 5/5 and Flexion 5/5 Palpation: No tenderness Log roll: non-painful. Limb length: clinically equal Straight leg raise: Negative Neurovascular Status: Sensation Intact and Moves foot and ankle up AND down Left Knee: Alignment: Neutral Incision well healed Range of motion is 0 degrees in extension and 120 degrees of flexion. Extension La degrees Pain with ROM: No Effusion: None Tender to the palpation of None Stability: Anterior/Posterior stable and Varus/Valgus stable Hip Exam: flexion to 100+ degrees, full extension, internal/external rotation adequate and no pain with log roll Neurovascular Status: Sensation Intact and Moves foot and ankle up AND down Right knee: Alignment: Neutral Incision well healed Range of motion is 0 degrees in extension and 120 degrees of flexion. Extension La degrees Pain with ROM: No Effusion: None Pain with patellar compression: No Stability: Anterior/Posterior stable and Varus/Valgus stable Hip Exam: flexion to 100+ degrees, full extension, internal/external rotation adequate and no pain with log roll Neurovascular Status: Sensation Intact and Moves foot and ankle up AND down IMAGING: X-ray Hips: Post op Implants are well fixed. and There is no evidence of loosening. The History, Exam, and Plan as documented by the Orthopaedic surgery resident/fellow/physician benefits assistant was reviewed and discussed in detail. We have discussed the case and management of the patient's care, and I agree with the above documented information and plan. Provider: Paxton Foster MD Completed by: Paxton Foster [facility]06-29-2023 NoteHNO ID: [id number] Author: RT Cholo(R) Service: Radiology Author Type: Technologist Type: Progress Notes Filed: 08/04/2022 11:12 AM Note Text: Radiology Service Progress Note PATIENT NAME: Indiana Hines DATE OF SERVICE: August 04, 2022 TIME: 11:11 AM PATIENT IDENTITY VERIFICATION COMPLETED USING TWO (2) IDENTIFIERS: Name and Date of confirmed by patient verbally. FALL SCREENING: Has the patient had 2 falls in the last year or 1 fall with injury or currently using an Ambulatory Assistive Device (Walker, Cane, Wheelchair, Crutches, etc.)? No PATIENT GENDER DATA: Male PATIENT RELEVANT IMPLANT DATA REVIEWED: Not Applicable RADIOLOGY DEPARTMENT: General X-ray: Exam(s) Completed: Pelvis X-Ray: Pelvis with Hip Right Lower Extremity X-Ray(s): Knee, AP / Lat / Merchant Left and Wt. Bearing PERIPHERAL IV DATA: Not applicable SIGNED BY: Hollie Parr, (R)Jacob Lott(RT) August 04, 2022 11:11 [facility]06-29-2023 History of Present illness Narrative* Paxton Foster MD - 08/04/2022 11:23 AM EDT Ortho Hip Follow Up Note Narrative Referring Provider: No referring provider defined for this encounter. PCP: Juvencio Sanchez, DO IMPRESSION/PLAN: Impressions indicate: 76 year old s/p Revision Right Total Hip Replacement completed on 06/16/2015. Recent Surgeries this specialty 06/16/2015 (7yr) ARTHROPLASTY TOTAL HIP CONVERSION AFTER PREVIOUS HIP SURG (Right) Paxton Foster MD; Jam Vera (Clarisa) Ector - Posted 03/17/2015 (7yr) REMOVAL HIP PROSTHESIS COMPLICATED INCL. TOTAL HIP PROSTHESIS (Right) Paxton Foster MD; Nicho (Clarisa) Krystle - Posted PAIN EVALUATION No data found in the last 1 encounters. IMPRESSION: Right hip is doing well. Had left TKA in 1999 and Right TKA 03/17/[address] Abdi in [place], [place]. Started to develop some discomfort in the left knee about 1 year ago. PLAN: Possible early loosening of left TKA. Will continue to monitor. Follow up in 1 year with new x-rays unless change in symptoms. Patient Reassurance: Patient reassured and supported. All questions answered. 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 STATUS POST: BMI: Body mass index is 33.64 kg/m . Post operative recovery was complicated by uneventful/none. Readmission(s) since surgery (90 days post)? No ED Visits & Hospitalizations - Last 180 days None Patient rates their condition as improving. Does the patient still experience pain? see MIDAS Form. Post Op discharge patient location: in home. Functional Assessment is as follows: completed course of therapy. Functional difficulties: None. Pain Medication: None Physical Therapy Data 06/17/2015 06/19/2019 06/25/2019 Therapist that will oversee plan of care Jodie Atkinson Emily - Prognosis - Fair - Prognosis fair - clinical presentation;chronic nature of impairments;advanced age - Frequency - 1x/week - Duration - 4 weeks - Total number of visits - 4 - Planned treatment interventions - Therapeutic exercise;Neuromuscular re-education;Self-long term management;Patient/Family/Caregiver Education - Plan for next visit - hip ER stretch; flexion bias; PPT with march, lateral glide R->L discuss standing weight shift - loading left too much EXAM: POST OP HIP RIGHT POST-OPERATIVE HIP SKIN: Appropriate postop appearance and Incision intact. Range of Motion: Pain Free Neurovascular Status: Sensation Intact, Moves foot and ankle up & down, and 2+ dorsalis pedis Gait: Normal, the patient did not have trouble getting onto the exam table. HIP EXAM: Right: ROM: Extension: Normal Flexion: 110 degrees Internal Rotation: 30 degrees External Rotation: 30 degrees Abduction: 40 degrees Adduction: 30 degrees Strength: Abduction 5/5 and Flexion 5/5 Palpation: No tenderness Log roll: non-painful. Limb length: clinically equal Straight leg raise: Negative Neurovascular Status: Sensation Intact and Moves foot and ankle up & down Left Knee: Alignment: Neutral Incision well healed Range of motion is 0 degrees in extension and 120 degrees of flexion. Extension La degrees Pain with ROM: No Effusion: None Tender to the palpation of None Stability: Anterior/Posterior stable and Varus/Valgus stable Hip Exam: flexion to 100+ degrees, full extension, internal/external rotation adequate and no pain with log roll Neurovascular Status: Sensation Intact and Moves foot and ankle up & down Right knee: Alignment: Neutral Incision well healed Range of motion is 0 degrees in extension and 120 degrees of flexion. Extension La degrees Pain with ROM: No Effusion: None Pain with patellar compression: No Stability: Anterior/Posterior stable and Varus/Valgus stable Hip Exam: flexion to 100+ degrees, full extension, internal/external rotation adequate and no pain with log roll Neurovascular Status: Sensation Intact and Moves foot and ankle up & down IMAGING: X-ray Hips: Post op Implants are well fixed. and There is no evidence of loosening. The History, Exam, and Plan as documented by the Orthopaedic surgery resident/fellow/physician benefits assistant was reviewed and discussed in detail. We have discussed the case and management of the patient's care, and I agree with the above documented information and plan. Provider: Paxton Foster MD Completed by: Paxton Foster MD [facility] Encounter Date Diagnosis Assessment Notes Treatment Notes Treatment Clinical Notes June, Elevated PSA (ICD-10 - R97.20) [employer] Other 04-17-2023 Evaluation note* Encounter Date Diagnosis Assessment Notes Treatment Notes Treatment Clinical Notes May, Cough (ICD-10 - R05.9) May,ough (ICD-10 - R05) [employer] Other 03-27-2023 Evaluation note* Encounter Date Diagnosis Assessment Notes Treatment Notes Treatment Clinical Notes Apr, GERD (gastroesophageal reflux di sease) (ICD-10 - K21.9) [employer] Other 02-01-2023 Hospital Discharge instructions Patient Education 03/09/2022 07:48:20 Cancer Screening for Men Cancer Screening for Men A cancer screening is a test or exam that checks for cancer. Your health care provider will recommend specific cancer screenings based on your age, personal history, and family history of cancer. Work with your health care provider to create a cancer screening schedule that protects your health. Why is cancer screening done? Cancer screening is done to look for cancer in the very early stages, before it spreads and becomesharder to treat and before you would start to notice symptoms. Finding cancer early improves the chances of successful treatment. It may save your life. Who should be screened for cancer? All men should be screened for colorectal cancer and skin cancer. Your health care provider may recommend screenings for other types of cancer if: You had cancer before. You have a family member with cancer. You have abnormal genes that could increase the risk of cancer. You have risk factors for certain cancers, such as smoking. When you should be screened for cancer depends on: Your age. Your medical history and your family's medical history. Certain lifestyle factors, such as smoking. Environmental exposure, such as to asbestos. What are some common cancer screenings? Lung cancer Lung cancer screening is done with a CT scan that looks for abnormal cells in the lungs. Discuss lung cancer screening with your health care provider if you are 55 74 years old and if any of the following apply to you: You currently smoke. You used to smoke heavily. You have a smoking history of 1 pack a day for 30 years or 2 packs a day for 15 years. You have quit smoking within the past 15 years. If you smoke heavily or if you used to smoke, you may need to be screened every year. Prostate cancer Prostate cancer screening is done with blood tests and an exam in which a health care provider usesa gloved finger to check prostate size (digital rectal exam). You may need to be screened for prostate cancer if: You have risk factors of prostate cancer, such as being or having a close family member with prostate cancer. You have inherited gene changes or a genetic condition, including BRCA1 or BRCA2 gene mutations or Dinero syndrome. You have symptoms of prostate cancer, such as problems urinating or erectile dysfunction. Prostate cancer screening for men with average risk may start at age 50. Men with risk factors may need to be screened earlier at age 40 45. Once you have been screened for prostate cancer, future screening may be recommended based on the results of your blood tests. Colorectal cancer All adults should have screening for colorectal cancer starting at age 50 and continuing until age 75. Your health care provider may recommend screening at age 45. You will have tests every 1 10 years, depending on your results and the type of screening test. If you have a family history of colon or rectal cancer or other risk factors, you may need to start having screenings earlier. Talk with your health care provider about which screening test is right for you and how often you should be screened. Colorectal cancer screening looks for cancer or for growths called polyps that often form before cancer starts. Tests to look for cancer or polyps include: Colonoscopy or flexible sigmoidoscopy. For these procedures, a flexible tube with a small camera isinserted into the rectum. CT colonography. This test uses X-rays and a contrast dye to check the colon for polyps. If a polypis found, you may need to have a colonoscopy so the polyp can be located and removed. Tests to look for cancer in the stool (feces) include: Guaiac-based fecal occult blood test (FOBT). This test detects blood in stool. It can be done at home with a kit. Fecal immunochemical test (FIT). This test detects blood in stool. For this test, you will need to collect stool samples at home. Stool DNA test. This test looks for blood in stool and any changes in DNA that can lead to colon cancer. For this test, you will need to collect a stool sample at home and send it to a lab. Skin cancer Skin cancer screening is done by checking the skin for unusual moles or spots and any changes in existing moles. Your health care provider should check your skin for signs of skin cancer at every physical exam. You should check your skin every month and tell your health care provider right away if anything looks unusual. Men with a alyvij-hazy-jlwmfu risk for skin cancer may want to see a parking enforcement specialist (flagman) for an annual body check. Where to find more information National Cancer [place]: https://www.cancer.gov/about-cancer/screening Centers for Disease Control and Prevention: https://www.cdc.gov/cancer/dcpc/prevention/screening.htm Canadian Cancer Society: https://www.cancer.org/latest-news/0-dqzjof-idtmnvjrf-bgdpg-xei-xal.html Contact a health care provider if: You have concerns about any signs or symptoms of cancer, such as: ?Moles that have an unusual shape or color. ?Changes in existing moles. ?A sore on your skin that does not heal. ?Blood in your urine or stool. ?Fatigue that does not go away. ?Frequent pain or cramping in your abdomen. ?Coughing or trouble breathing that does not go away. ?Coughing up blood. ?Losing weight without trying. ?Changes in urination habits. ?Painful urination or ejaculation. Summary Be aware of and watch for signs and symptoms of cancer, especially symptoms of lung cancer, prostate cancer, colorectal cancer, and skin cancer. Early detection of cancer with cancer screening may save your life. Talk with your health care provider about your specific cancer risks. Work together with your health care provider to create a cancer screening plan that is right for you. This information is not intended to replace advice given to you by your health care provider. Make sure you discuss any questions you have with your health care provider. Document Released: 10/20/2016 Document Revised: 10/12/2018 Document Reviewed: 10/20/2016 [employer] Patient Education 2020 [employer] Follow Up Care 02/08/2022 11:33:15 With:MELISSA THORNTON, Akbar Bassett, URL Address: [facility] [address], [place] [address]- When:6 months Comments:Cysto/Fish/Cytol [facility] 12-07-2022 Evaluation note* Encounter Date Diagnosis Assessment Notes Treatment Notes Treatment Clinical Notes Jan, Chronic kidney disease, stage II I (moderate) (ICD-10 - N18.30) He has a CKD due to longstanding hypertension with baseline creatinine around 1.2 to 1.4 mg/dL. Discussed with the importance of good HTN control to slow down the progression of CKD. Jan,en hy kid w cr kid I-IV (ICD-10 - I12.9)Blood pressures controlled. He appears to be euvolemic. Continue current dose of the amlodipine. Jan,econdary hyperparathyroidism (ICD-10 - N25.81)MBD parameters including calcium, phosphorus, vitamin D and PTH are within the goal. Jan,Hyperlipidemia (ICD-10 - E78.5)control not to goalContinue statins and check lipid profiles [employer] Other 11-08-2022 Evaluation note* Encounter Date Diagnosis Assessment Notes Treatment Notes Treatment Clinical Notes Dec, Hyperlipidemia (ICD-10 - E78.5) Discussed cholesterol results with patient today. Total is 135. HDL is 34. LDL is 74. Triglyceridesare 134. VLDL is 26. He is to continue with above medications as directed. Watch intake of carbs and sugars. Stay active. Dec,Hyperglycemia (ICD-10 - R73.9)Discussed blood sugar results with patient today. Glucose is 88. HgA1C is 6.0. Again, continue to monitor intake of carbs and sugars. Stay active. Dec,Hypertension (ICD-10 - I10)Blood pressure is controlled, continue with above medications daily as directed. Dec,nemia (ICD-10 - D64.9)His HGB was 13.2. Iron was 95. Ferritin was elevated at 351.4. We discussed that being ill can raise the Ferritin level which is likely why his is elevated. I would like to recheck his Ferritin level when he is feeling better. He can call for results. He is not currently taking any Iron supplements. Dec,ther abnormal blood chemistry (ICD-10 - R79.89)His BUN is 26. Creatinine is 1.63. EGFR is 41. He has an appointment with Dr. Pichardo in January (2021). I did recommend that he drink plenty of water daily. Avoid NSAID medication. He does take Tylenol Arthritis and is told that this does not irritate the kidneys. Dec,GERD (gastroesophageal reflux disease) (ICD-10 - K21.9)Continue with above medication daily as directed. Dec,ladder cancer (ICD-10 - C67.9)Follow with urologist as directed. Dec,Elevated alkaline phosphatase level (ICD-10 - R74.8)His alk phos level is 98, will continue to monitor. Dec,ough (ICD-10 - R05.9)He has had a cough since last week, he is bringing up yellow pghlem but not green or brown. He voices that he had been [place] [employer] and since he came home he has been ill. He feels he is improving. Dec,Weight loss (ICD-10 - R63.4)He has lost two pounds since last seen. His TSH is 3.15 which is normal. Dec,therStool for occult blood is negative. He refuses a colonoscopy. [employer] Other 11-02-2022 Evaluation + Plan note Diagnostic Tests Pending * [facility]) 12/08/21 Future Scheduled Tests Laboratory* PSA Total 03/17/21 [facility] 11-02-2022 Hospital Discharge instructions Patient Education 12/08/2021 07:58:17 Bladder Cancer Bladder Cancer Bladder cancer is an abnormal growth of tissue in the bladder. The bladder is the balloon-like sac in the pelvis. It collects and stores urine that comes from the kidneys through the ureters. The bladder wall is made of layers. If cancer spreads into these layers and through the wall of the bladder, it becomes more difficult to treat. What are the causes? The cause of this condition is not known. What increases the risk? The following factors may make you more likely to develop this condition: Smoking. Workplace risks (occupational exposures), such as rubber, leather, textile, dyes, chemicals, and paint. Being white. Your age. Most people with bladder cancer are over the age of 55. Being male. Having chronic bladder inflammation. Having a personal history of bladder cancer. Having a family history of bladder cancer (heredity). Having had chemotherapy or radiation therapy to the pelvis. Having been exposed to arsenic. What are the signs or symptoms? Initial symptoms of this condition include: Blood in the urine. Painful urination. Frequent bladder or urine infections. Increase in urgency and frequency of urination. Advanced symptoms of this condition include: Not being able to urinate. Low back pain on one side. Loss of appetite. Weight loss. Fatigue. Swelling in the feet. Bone pain. How is this diagnosed? This condition is diagnosed based on your medical history, a physical exam, urine tests, lab tests,imaging tests, and your symptoms. You may also have other tests or procedures done, such as: A narrow tube being inserted into your bladder through your urethra (cystoscopy) in order to view the lining of your bladder for tumors. A biopsy to sample the tumor to see if cancer is present. If cancer is present, it will then be staged to determine its severity and extent. Staging is an assessment of: The size of the tumor. Whether the cancer has spread. Where the cancer has spread. It is important to know how deeply into the bladder wall cancer has grown and whether cancer has spread to any other parts of your body. Staging may require blood tests or imaging tests, such as a CTscan, MRI, bone scan, or chest X-ray. How is this treated? Based on the stage of cancer, one treatment or a combination of treatments may be recommended. The most common forms of treatment are: Surgery to remove the cancer. Procedures that may be done include transurethral resection and cystectomy. Radiation therapy. This is high-energy X-rays or other particles. This is often used in combinationwith chemotherapy. Chemotherapy. During this treatment, medicines are used to kill cancer cells. Immunotherapy. This uses medicines to help your own immune system destroy cancer cells. Follow these instructions at home: Take zrek-vxv-lmrldxd and prescription medicines only as told by your health care provider. Maintain a healthy diet. Some of your treatments might affect your appetite. Consider joining a support group. This may help you learn to cope with the stress of having bladdercancer. Tell your cancer care team if you develop side effects. They may be able to recommend ways to relieve them. Keep all follow-up visits as told by your health care provider. This is important. Where to find more information Canadian Cancer Society: www.cancer.org National Cancer [place] (NCI): www.cancer.gov Contact a health care provider if: You have symptoms of a urinary tract infection. These include: ?Fever. ?Chills. ?Weakness. ?Muscle aches. ?Abdominal pain. ?Frequent and intense urge to urinate. ?Burning feeling in the bladder or urethra during urination. Get help right away if: There is blood in your urine. You cannot urinate. You have severe pain or other symptoms that do not go away. Summary Bladder cancer is an abnormal growth of tissue in the bladder. This condition is diagnosed based on your medical history, a physical exam, urine tests, lab tests,imaging tests, and your symptoms. Based on the stage of cancer, surgery, chemotherapy, or a combination of treatments may be recommended. Consider joining a support group. This may help you learn to cope with the stress of having bladdercancer. This information is not intended to replace advice given to you by your health care provider. Make sure you discuss any questions you have with your health care provider. Document Released: 01/26/2004 Document Revised: 01/05/2018 Document Reviewed: 12/27/2016 [employer] Patient Education 2020 [email or web address] 12/08/2021 07:46:18 Bladder Cancer Bladder Cancer Bladder cancer is an abnormal growth of tissue in the bladder. The bladder is the balloon-like sac in the pelvis. It collects and stores urine that comes from the kidneys through the ureters. The bladder wall is made of layers. If cancer spreads into these layers and through the wall of the bladder, it becomes more difficult to treat. What are the causes? The cause of this condition is not known. What increases the risk? The following factors may make you more likely to develop this condition: Smoking. Workplace risks (occupational exposures), such as rubber, leather, textile, dyes, chemicals, and paint. Being white. Your age. Most people with bladder cancer are over the age of 55. Being male. Having chronic bladder inflammation. Having a personal history of bladder cancer. Having a family history of bladder cancer (heredity). Having had chemotherapy or radiation therapy to the pelvis. Having been exposed to arsenic. What are the signs or symptoms? Initial symptoms of this condition include: Blood in the urine. Painful urination. Frequent bladder or urine infections. Increase in urgency and frequency of urination. Advanced symptoms of this condition include: Not being able to urinate. Low back pain on one side. Loss of appetite. Weight loss. Fatigue. Swelling in the feet. Bone pain. How is this diagnosed? This condition is diagnosed based on your medical history, a physical exam, urine tests, lab tests,imaging tests, and your symptoms. You may also have other tests or procedures done, such as: A narrow tube being inserted into your bladder through your urethra (cystoscopy) in order to view the lining of your bladder for tumors. A biopsy to sample the tumor to see if cancer is present. If cancer is present, it will then be staged to determine its severity and extent. Staging is an assessment of: The size of the tumor. Whether the cancer has spread. Where the cancer has spread. It is important to know how deeply into the bladder wall cancer has grown and whether cancer has spread to any other parts of your body. Staging may require blood tests or imaging tests, such as a CTscan, MRI, bone scan, or chest X-ray. How is this treated? Based on the stage of cancer, one treatment or a combination of treatments may be recommended. The most common forms of treatment are: Surgery to remove the cancer. Procedures that may be done include transurethral resection and cystectomy. Radiation therapy. This is high-energy X-rays or other particles. This is often used in combinationwith chemotherapy. Chemotherapy. During this treatment, medicines are used to kill cancer cells. Immunotherapy. This uses medicines to help your own immune system destroy cancer cells. Follow these instructions at home: Take rlag-pgm-scrvvbj and prescription medicines only as told by your health care provider. Maintain a healthy diet. Some of your treatments might affect your appetite. Consider joining a support group. This may help you learn to cope with the stress of having bladdercancer. Tell your cancer care team if you develop side effects. They may be able to recommend ways to relieve them. Keep all follow-up visits as told by your health care provider. This is important. Where to find more information Canadian Cancer Society: www.cancer.org National Cancer [place] (NCI): www.cancer.gov Contact a health care provider if: You have symptoms of a urinary tract infection. These include: ?Fever. ?Chills. ?Weakness. ?Muscle aches. ?Abdominal pain. ?Frequent and intense urge to urinate. ?Burning feeling in the bladder or urethra during urination. Get help right away if: There is blood in your urine. You cannot urinate. You have severe pain or other symptoms that do not go away. Summary Bladder cancer is an abnormal growth of tissue in the bladder. This condition is diagnosed based on your medical history, a physical exam, urine tests, lab tests,imaging tests, and your symptoms. Based on the stage of cancer, surgery, chemotherapy, or a combination of treatments may be recommended. Consider joining a support group. This may help you learn to cope with the stress of having bladdercancer. This information is not intended to replace advice given to you by your health care provider. Make sure you discuss any questions you have with your health care provider. Document Released: 01/26/2004 Document Revised: 01/05/2018 Document Reviewed: 12/27/2016 [employer] Patient Education 2020 [email or web address] Follow Up Care 11/25/2021 10:15:06 With:MELISSA THORNTON, Akbar Bassett, URL Address: [facility] [address] , [place] [address]- When:3 months Comments:Cysto/Fish/Cytol [facility] 11-01-2022 Evaluation note* Encounter Date Diagnosis Assessment Notes Treatment Notes Treatment Clinical Notes Dec, Encounter for removal of sutures (ICD-10 - Z48.02) 5 sutures removed today in office, patient tolerated procedure well. Advised patient that he may keep area open to air, wash twice a day with soap and water. Follow up as needed. Patient verbalizes understanding and is agreeable with treatment plan [employer] Other 10-17-2022 Evaluation note* Encounter Date Diagnosis Assessment Notes Treatment Notes Treatment Clinical Notes Nov, Laceration of left h and without foreign body, initial encounter (ICD-10 - S61.412A) Keep wound and dressing clean and dry. If possible keep same dressing for 24 hours then open to air/ keep covered when working Call office or seek emergency treatment if any signs or symptoms of infection occur including increased swelling, redness, increased pain, drainage, you start to run a fever, or have chills. Return to office in Days for removal of sutures [employer] Other 09-07-2022 Hospital Discharge instructions Patient Education 10/13/2021 11:30:56 Bladder Cancer Bladder Cancer Bladder cancer is an abnormal growth of tissue in the bladder. The bladder is the balloon-like sac in the pelvis. It collects and stores urine that comes from the kidneys through the ureters. The bladder wall is made of layers. If cancer spreads into these layers and through the wall of the bladder, it becomes more difficult to treat. What are the causes? The cause of this condition is not known. What increases the risk? The following factors may make you more likely to develop this condition: Smoking. Workplace risks (occupational exposures), such as rubber, leather, textile, dyes, chemicals, and paint. Being white. Your age. Most people with bladder cancer are over the age of 55. Being male. Having chronic bladder inflammation. Having a personal history of bladder cancer. Having a family history of bladder cancer (heredity). Having had chemotherapy or radiation therapy to the pelvis. Having been exposed to arsenic. What are the signs or symptoms? Initial symptoms of this condition include: Blood in the urine. Painful urination. Frequent bladder or urine infections. Increase in urgency and frequency of urination. Advanced symptoms of this condition include: Not being able to urinate. Low back pain on one side. Loss of appetite. Weight loss. Fatigue. Swelling in the feet. Bone pain. How is this diagnosed? This condition is diagnosed based on your medical history, a physical exam, urine tests, lab tests,imaging tests, and your symptoms. You may also have other tests or procedures done, such as: A narrow tube being inserted into your bladder through your urethra (cystoscopy) in order to view the lining of your bladder for tumors. A biopsy to sample the tumor to see if cancer is present. If cancer is present, it will then be staged to determine its severity and extent. Staging is an assessment of: The size of the tumor. Whether the cancer has spread. Where the cancer has spread. It is important to know how deeply into the bladder wall cancer has grown and whether cancer has spread to any other parts of your body. Staging may require blood tests or imaging tests, such as a CTscan, MRI, bone scan, or chest X-ray. How is this treated? Based on the stage of cancer, one treatment or a combination of treatments may be recommended. The most common forms of treatment are: Surgery to remove the cancer. Procedures that may be done include transurethral resection and cystectomy. Radiation therapy. This is high-energy X-rays or other particles. This is often used in combinationwith chemotherapy. Chemotherapy. During this treatment, medicines are used to kill cancer cells. Immunotherapy. This uses medicines to help your own immune system destroy cancer cells. Follow these instructions at home: Take msvu-zlg-aubvuzm and prescription medicines only as told by your health care provider. Maintain a healthy diet. Some of your treatments might affect your appetite. Consider joining a support group. This may help you learn to cope with the stress of having bladdercancer. Tell your cancer care team if you develop side effects. They may be able to recommend ways to relieve them. Keep all follow-up visits as told by your health care provider. This is important. Where to find more information Canadian Cancer Society: www.cancer.org National Cancer [place] (NCI): www.cancer.gov Contact a health care provider if: You have symptoms of a urinary tract infection. These include: ?Fever. ?Chills. ?Weakness. ?Muscle aches. ?Abdominal pain. ?Frequent and intense urge to urinate. ?Burning feeling in the bladder or urethra during urination. Get help right away if: There is blood in your urine. You cannot urinate. You have severe pain or other symptoms that do not go away. Summary Bladder cancer is an abnormal growth of tissue in the bladder. This condition is diagnosed based on your medical history, a physical exam, urine tests, lab tests,imaging tests, and your symptoms. Based on the stage of cancer, surgery, chemotherapy, or a combination of treatments may be recommended. Consider joining a support group. This may help you learn to cope with the stress of having bladdercancer. This information is not intended to replace advice given to you by your health care provider. Make sure you discuss any questions you have with your health care provider. Document Released: 01/26/2004 Document Revised: 01/05/2018 Document Reviewed: 12/27/2016 [employer] Patient Education 2020 [email or web address]. Follow Up Care 09/17/2021 15:10:56 With:MELISSA THORNTON, Akbar Bassett, URL Address: [facility] [address] , [place] [address]- When:1 week Comments:BCG #3 of #3 [facility] 08-31-2022 Hospital Discharge instructions Patient Education 10/06/2021 12:35:00 Bladder Cancer Bladder Cancer Bladder cancer is an abnormal growth of tissue in the bladder. The bladder is the balloon-like sac in the pelvis. It collects and stores urine that comes from the kidneys through the ureters. The bladder wall is made of layers. If cancer spreads into these layers and through the wall of the bladder, it becomes more difficult to treat. What are the causes? The cause of this condition is not known. What increases the risk? The following factors may make you more likely to develop this condition: Smoking. Workplace risks (occupational exposures), such as rubber, leather, textile, dyes, chemicals, and paint. Being white. Your age. Most people with bladder cancer are over the age of 55. Being male. Having chronic bladder inflammation. Having a personal history of bladder cancer. Having a family history of bladder cancer (heredity). Having had chemotherapy or radiation therapy to the pelvis. Having been exposed to arsenic. What are the signs or symptoms? Initial symptoms of this condition include: Blood in the urine. Painful urination. Frequent bladder or urine infections. Increase in urgency and frequency of urination. Advanced symptoms of this condition include: Not being able to urinate. Low back pain on one side. Loss of appetite. Weight loss. Fatigue. Swelling in the feet. Bone pain. How is this diagnosed? This condition is diagnosed based on your medical history, a physical exam, urine tests, lab tests,imaging tests, and your symptoms. You may also have other tests or procedures done, such as: A narrow tube being inserted into your bladder through your urethra (cystoscopy) in order to view the lining of your bladder for tumors. A biopsy to sample the tumor to see if cancer is present. If cancer is present, it will then be staged to determine its severity and extent. Staging is an assessment of: The size of the tumor. Whether the cancer has spread. Where the cancer has spread. It is important to know how deeply into the bladder wall cancer has grown and whether cancer has spread to any other parts of your body. Staging may require blood tests or imaging tests, such as a CTscan, MRI, bone scan, or chest X-ray. How is this treated? Based on the stage of cancer, one treatment or a combination of treatments may be recommended. The most common forms of treatment are: Surgery to remove the cancer. Procedures that may be done include transurethral resection and cystectomy. Radiation therapy. This is high-energy X-rays or other particles. This is often used in combinationwith chemotherapy. Chemotherapy. During this treatment, medicines are used to kill cancer cells. Immunotherapy. This uses medicines to help your own immune system destroy cancer cells. Follow these instructions at home: Take krov-uql-lgndogj and prescription medicines only as told by your health care provider. Maintain a healthy diet. Some of your treatments might affect your appetite. Consider joining a support group. This may help you learn to cope with the stress of having bladdercancer. Tell your cancer care team if you develop side effects. They may be able to recommend ways to relieve them. Keep all follow-up visits as told by your health care provider. This is important. Where to find more information [employer] Cancer Society: www.cancer.org National Cancer [place] (NCI): www.cancer.gov Contact a health care provider if: You have symptoms of a urinary tract infection. These include: ?Fever. ?Chills. ?Weakness. ?Muscle aches. ?Abdominal pain. ?Frequent and intense urge to urinate. ?Burning feeling in the bladder or urethra during urination. Get help right away if: There is blood in your urine. You cannot urinate. You have severe pain or other symptoms that do not go away. Summary Bladder cancer is an abnormal growth of tissue in the bladder. This condition is diagnosed based on your medical history, a physical exam, urine tests, lab tests,imaging tests, and your symptoms. Based on the stage of cancer, surgery, chemotherapy, or a combination of treatments may be recommended. Consider joining a support group. This may help you learn to cope with the stress of having bladdercancer. This information is not intended to replace advice given to you by your health care provider. Make sure you discuss any questions you have with your health care provider. Document Released: 01/26/2004 Document Revised: 01/05/2018 Document Reviewed: 12/27/2016 [employer] Patient Education 2020 [email or web address]. Follow Up Care 09/17/2021 15:09:41 With:MELISSA THORNTON, Akbar Bassett, URL Address: [facility] [address] , [place] [address]- When:1 week Comments:BCG #2 of #3 [facility] 2022 Evaluation + Plan note Diagnostic Tests Pending * UroVysion Fish and Urine Cyto ([facility]) 09/15/21 Future Scheduled Tests Laboratory* PSA Total 03/17/21 [facility] 2022 Hospital Discharge instructions Patient Education 09/15/2021 07:54:49 Benign Prostatic Hyperplasia Benign Prostatic Hyperplasia Benign prostatic hyperplasia (BPH) is an enlarged prostate gland that is caused by the normal agingprocess and not by cancer. The prostate is a walnut-sized gland that is involved in the production of semen. It is located in front of the rectum and below the bladder. The bladder stores urine and the urethra is the tube that carries the urine out of the body. The prostate may get bigger as a man gets older. An enlarged prostate can press on the urethra. This can make it harder to pass urine. The build-up of urine in the bladder can cause infection. Back pressure and infection may progress to bladder damage and kidney (renal) failure. What are the causes? This condition is part of a normal aging process. However, not all men develop problems from this condition. If the prostate enlarges away from the urethra, urine flow will not be blocked. If it enlarges toward the urethra and compresses it, there will be problems passing urine. What increases the risk? This condition is more likely to develop in men over the age of 50 years. What are the signs or symptoms? Symptoms of this condition include: Getting up often during the night to urinate. Needing to urinate frequently during the day. Difficulty starting urine flow. Decrease in size and strength of your urine stream. Leaking (dribbling) after urinating. Inability to pass urine. This needs immediate treatment. Inability to completely empty your bladder. Pain when you pass urine. This is more common if there is also an infection. Urinary tract infection (UTI). How is this diagnosed? This condition is diagnosed based on your medical history, a physical exam, and your symptoms. Tests will also be done, such as: A post-void bladder scan. This measures any amount of urine that may remain in your bladder after you finish urinating. A digital rectal exam. In a rectal exam, your health care provider checks your prostate by putting a lubricated, gloved finger into your rectum to feel the back of your prostate gland. This exam detects the size of your gland and any abnormal lumps or growths. An exam of your urine (urinalysis). A prostate specific antigen (PSA) screening. This is a blood test used to screen for prostate cancer. An ultrasound. This test uses sound waves to electronically produce a picture of your prostate gland. Your health care provider may refer you to a specialist in kidney and prostate diseases (urologist). How is this treated? Once symptoms begin, your health care provider will monitor your condition (active surveillance or watchful waiting). Treatment for this condition will depend on the severity of your condition. Treatment may include: Observation and yearly exams. This may be the only treatment needed if your condition and symptoms are mild. Medicines to relieve your symptoms, including: ?Medicines to shrink the prostate. ?Medicines to relax the muscle of the prostate. Surgery in severe cases. Surgery may include: ?Prostatectomy. In this procedure, the prostate tissue is removed completely through an open incision or with a laparoscope or robotics. ?Transurethral resection of the prostate (TURP). In this procedure, a tool is inserted through the opening at the tip of the penis (urethra). It is used to cut away tissue of the inner core of the prostate. The pieces are removed through the same opening of the penis. This removes the blockage. ?Transurethral incision (TUIP). In this procedure, small cuts are made in the prostate. This lessens the prostate's pressure on the urethra. ?Transurethral microwave thermotherapy (TUMT). This procedure uses microwaves to create heat. The heat destroys and removes a small amount of prostate tissue. ?Transurethral needle ablation (TUNA). This procedure uses radio frequencies to destroy and remove a small amount of prostate tissue. ?Interstitial laser coagulation (ILC). This procedure uses a laser to destroy and remove a small amount of prostate tissue. ?Transurethral electrovaporization (TUVP). This procedure uses electrodes to destroy and remove a small amount of prostate tissue. ?Prostatic urethral lift. This procedure inserts an implant to push the lobes of the prostate away from the urethra. Follow these instructions at home: Take cqgw-cqb-qzsacgw and prescription medicines only as told by your health care provider. Monitor your symptoms for any changes. Contact your health care provider with any changes. Avoid drinking large amounts of liquid before going to bed or out in public. Avoid or reduce how much caffeine or alcohol you drink. Give yourself time when you urinate. Keep all follow-up visits as told by your health care provider. This is important. Contact a health care provider if: You have unexplained back pain. Your symptoms do not get better with treatment. You develop side effects from the medicine you are taking. Your urine becomes very dark or has a bad smell. Your lower abdomen becomes distended and you have trouble passing your urine. Get help right away if: You have a fever or chills. You suddenly cannot urinate. You feel lightheaded, or very dizzy, or you faint. There are large amounts of blood or clots in the urine. Your urinary problems become hard to manage. You develop moderate to severe low back or flank pain. The flank is the side of your body between the ribs and the hip. These symptoms may represent a serious problem that is an emergency. Do not wait to see if the symptoms will go away. Get medical help right away. Call your local emergency services (911 in the [place] Do not drive yourself to the hospital. Summary Benign prostatic hyperplasia (BPH) is an enlarged prostate that is caused by the normal aging process and not by cancer. An enlarged prostate can press on the urethra. This can make it hard to pass urine. This condition is part of a normal aging process and is more likely to develop in men over the age of 50 years. Get help right away if you suddenly cannot urinate. This information is not intended to replace advice given to you by your health care provider. Make sure you discuss any questions you have with your health care provider. Document Released: 01/23/2006 Document Revised: 12/18/2018 Document Reviewed: 02/27/2017 [employer] Patient Education 2019 [email or web address]. Follow Up Care 09/09/2021 10:31:23 With:MELISSA THORNTON, Akbar Bassett, URL Address: [facility] [address] [place] [address]- [phone] When:Within 3 Month(s) Comments:Cysto [facility] 05-04-2022 Evaluation + Plan note Diagnostic Tests Pending * UroVysion Fish and Urine Cyto ([facility]) 06/09/21 Future Scheduled Tests Laboratory* PSA Total 03/17/21 [facility] 05-03-2022 Evaluation note* Encounter Date Diagnosis Assessment Notes Treatment Notes Treatment Clinical Notes June, Hyperlipidemia (ICD-10 - E78.5) Discussed cholesterol results with patient today. Total is 156. HDL is 40. LDL is 90. Triglyceridesare 130. Readings are at goal. Continue to watch diet and stay active. Continue with above medications daily as directed. June,Hyperglycemia (ICD-10 - R73.9)Discussed blood sugar results with patient today. Glucose is 100. HgA1C is 5.8. He admits he was drinking more pop than normal but has tried to return to drinking more water. He is encouraged to watch his intake of carbs and sugars. Stay active. June,Hypertension (ICD-10 - I10)Blood pressure is controlled. Continue with above medications daily as directed. June,nemia (ICD-10 - D64.9)His HGB is 13.3. Iron is 83. Ferritin is 276.6. He is taking two tablets of Iron a week. I would like him to stop the Iron all together and see where his levels are at in six months. June,2Other abnormal blood chemistry (ICD-10 - R79.89)His BUN is 32. Creatinine is 1.28. EGFR is 55. He did see Dr. Pichardo in Jan (2020) and will return to see him next Jan (2021). June,GERD (gastroesophageal reflux disease) (ICD-10 - K21.9)He does continue to use and benefit from the above medication. June,ladder cancer (ICD-10 - C67.9)He is seeing Dr. Torres tomorrow June,Encounter for screening for malignant neoplasm of colon (ICD-10 - Z12.11)Will provide him with an order to have a FOBT done in the fall 2021. June,Weight loss (ICD-10 - R63.4) June,Elevated alkaline phosphatase level (ICD-10 - R74.8)His alk phos level was 108, this is something that we can continue to monitor. His Vitamin D level was normal when checked in the fall (2020). June,Lumbar pain (ICD-10 - M54.50)He has back pain, voices that he went to the [facility] last year for injections but they only lasted a few days. His saw that there a [employer] who works with a local back surgeon but she cannot recall the name of the company and they do noninvasive procedures to help the back pain. She believes it is Dr. Whitt that uses this [employer] procedure. He voices that when he tries to work it causes his back to hurt so he has to sit down for a minute or two and then can work again. He has a buggy that he takes to his garden so that he can sit. He had back surgery in the past. June,therHe bought a tuning bracelet and has worn this which has helped with his knee pain, he was told thathe could wear this if it helps. [employer] Other 04-04-2022 Evaluation note* Encounter Date Diagnosis Assessment Notes Treatment Notes Treatment Clinical Notes May, GERD (gastroesophageal reflux di sease) (ICD-10 - K21.9) [employer] Other 03-07-2022 Evaluation note* Encounter Date Diagnosis Assessment Notes Treatment Notes Treatment Clinical Notes Apr, Visit for suture removal (ICD-10 - Z48.02) sutures removed without incident. [employer] Other 02-28-2022 Evaluation note* Encounter Date Diagnosis Assessment Notes Treatment Notes Treatment Clinical Notes Mar, Laceration of left palm, initial encounter (ICD-10 - S61.412A) Keep wound and dressing clean and dry. If possible keep same dressing for 24 hours then open to air/ keep covered when working Call office or seek emergency treatment if any signs or symptoms of infection occur including increased swelling, redness, increased pain, drainage, you start to run a fever, or have chills. Return to office in 7 Days for removal of sutures [employer] Other 02-09-2022 Evaluation + Plan note Future Scheduled Tests Laboratory* PSA Total 03/17/21 [facility]IN[facility] BIOPHARMA 02-09-2022 Hospital Discharge instructions Follow Up Care 03/17/2021 08:42:12 With:MELISSA THORNTON, Akbar Bassett, URL Address: [facility] [address] , [place] [address]- When: Unknown Comments:1 year f/u FISH and Cysto [facility] 12-14-2021 Evaluation note* Encounter Date Diagnosis Assessment Notes Treatment Notes Treatment Clinical Notes Jan, Chronic kidney disease, stage II I (moderate) (ICD-10 - N18.30) He has a CKD due to longstanding hypertension with baseline creatinine around 1.2 to 1.4 mg/dL. Discussed with the importance of good HTN control to slow down the progression of CKD. Jan,en hy kid w cr kid I-IV (ICD-10 - I12.9) Blood pressures controlled. He appears to be euvolemic. Continue current dose of the amlodipine. Jan,econdary hyperparathyroidism (ICD-10 - N25.81) MBD parameters including calcium, phosphorus, vitamin D and PTH are within the goal. Jan,Hyperlipidemia (ICD-10 - E78.5)control not to goal Continue statins and check lipid profiles [employer] Other 12-09-2021 Evaluation note* Encounter Date Diagnosis Assessment Notes Treatment Notes Treatment Clinical Notes Jan, Hypertension (ICD-10 - I10) [employer] Other 10-20-2021 Evaluation note* Encounter Date Diagnosis Assessment Notes Treatment Notes Treatment Clinical Notes Nov, Anemia (ICD-10 - D64.9) [employer] Other 10-20-2021 Evaluation note* Encounter Date Diagnosis Assessment Notes Treatment Notes Treatment Clinical Notes Nov, Hypertension (ICD-10 - I10) Blood pressure is controlled. Continue with above medications. Nov,Hyperlipidemia (ICD-10 - E78.5) Again, he is to call for his lab results tomorrow 11-26-20 if he does not hear from this office by late morning. Nov,Hyperglycemia (ICD-10 - R73.9) He will have lab drawn today. He can call for the results tomorrow 11-26-20. Nov,nemia (ICD-10 - D64.9) I am going to add iron studies to be done today with his lab, based on those results we will decideif he needs to increase his dose of Iron. Nov,levated PSA (ICD-10 - R97.20) Continue to follow with urologist as directed. Nov,KD (chronic kidney disease) stage 3, GFR 30-59 ml/min (ICD-10 - N18.3) His BUN is 25. Creatinine is 1.23. EGFR is 57. Will continue to monitor. He will see Dr. Macdonald in January 2021. Nov,ladder cancer (ICD-10 - C67.9) He is seeing Dr. Torres for evaluation instead of Dr. Juares for evaluation now. He will be having another procedure done next week with laser treatment then likely another round of TB will be done, the new area is smaller than the first area that was seen but is around the edge of where the first one was seen. Nov,GERD (gastroesophageal reflux disease) (ICD-10 - K21.9) Continue with above medication as directed. [employer] Other 03-01-2007 History general Narrative - Reported* Type Description Date Medical History 04/2006 colonoscopy Medical History2- Cardiolite Stress Test NOHCMedical History2-09 Abnormal EKG (PVC)Medical Renjrvj6-72-29 stools for OB neg x 3 here in officeMedical History total hip replacement 08/13/2014Surgical Historyback - herniated [id number] Surgical Historyright [id number] Historyleft knee [id number] Surgical Ejwukmoetdd1623Doqqgjyb Historypilonidal [id number] Historyback - herniated [id number] Historyright knee lsbvikrtcac7802Mbsoergj History total hip klamqukyqlb81/08/2015Surgical Historypulled hip out put in block10/2014 Surgical Historyhip block12/2014Hospitalization Historysee above [employer] Other Consult note Author Radha Ames [facility] June 27, 2023 5:21pmNote Date/TimeMay 2023 5:20pm[place] [address] Cardiology Consult Note Signed Patient: Indiana Hines MR#: [id number] : 1945 Acct:[id number] Age/Sex: 77 / M Adm Date: 4 Loc: Room: [address] [place] [address] Type: ADM IN Attending Dr: Angeli Broderick MD Copies to: DO Radha Coffman MD Mazhar Rahman, MD~ Cardiology HPI History of Present Illness Consult Date: 06/27/23 Reason for Consult: New onset Afib with RVR HPI: Mr. Hines is a 77 year old male with PMH significant for HTN, HLD, GERD and CKD 3 who presented after being found to have new onset Afib during a 6 month check up at his PCP's office. Pt reports 1 week history fatigue and dyspnea. Denied chest pain, orthopnea, PND, BLE edema, palpitations, light headedness or syncope. He was noted to be tachycardic with irregular rhythm and was advised topresent to [facility]. EKG showed Afib with RVR and he was admitted for further management. He is currently on Cardizem gtt with some improvement in HR. 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/2014 - right hip- [facility]- CC repaired 2015 Family History Brother Family history of mental disorder Legacy FamHx Relation: Brother(s); Legacy FamHx Problem: Diagnosed with Mental Illness Daughter Legacy FamHx Relation: Daughter(s) Father 94 yrs Family/Other Legacy FamHx Problem: 1 BROTHER OVERDOSE Grandparent Legacy FamHx Relation: Maternal Grand Father Grandparent Legacy FamHx Relation: Maternal Grand Mother Grandparent Legacy FamHx Relation: Paternal Grand Father Grandparent Legacy FamHx Relation: Paternal Grand Mother Mother 94 yrs Social History Smoking Status: Current some day smoker Substance Use Type: None Meds Medications and Allergies Allergies nafcillin Adverse Reaction (Verified 06/27/23 11:06) Unknown Reaction Home Medications amlodipine 5 mg tablet 5 mg PO DAILY 05/06/17 [History Confirmed 06/27/23] omeprazole 40 mg capsule,delayed release 40 mg PO DAILY #90 caps 04/17/23 [Rx Confirmed 06/27/23] acetaminophen 650 mg tablet,extended release (Tylenol Arthritis Pain) 2 tab PO Q8HR 04/19/23 [History Confirmed 06/27/23] ascorbic acid (vitamin C) 500 mg capsule 1 cap PO DIRECTED 04/19/23 [History Confirmed 06/27/23] wjhtiynkdylp-ysr-myxrp acid-vit K-lycop 400 mcg-20 mcg-370 mcg tablet (Men's 50 Plus Multivitamin) 1 tab PO DAILY 04/19/23 [History Confirmed 06/27/23] omega 7-cyf-ejt-fish oil 1,200 mg (144 mg-216 mg) capsule (Fish Oil) 1 cap PO DAILY 04/19/23 [History Confirmed 06/27/23] Vitamin d 3 PO 06/27/23 [History] Zinc and vitamin c PO 06/27/23 [History] coenzyme Q10 100 mg capsule (Co Q-10) 100 mg PO DAILY 06/27/23 [History Confirmed 06/27/23] diphenhydramine 25 mg-acetaminophen 500 mg tablet (Tylenol PM Extra Strength) 1 tab PO QHS PRN sleep 06/27/23 [History Confirmed 06/27/23] lisinopril 5 mg tablet 5 mg PO DAILY 06/27/23 [History Confirmed 06/27/23] minocycline 100 mg capsule 100 mg PO DAILY 06/27/23 [History Confirmed 06/27/23] probiotic PO 06/27/23 [History] rosuvastatin 10 mg tablet 10 mg PO DAILY 06/27/23 [History Confirmed 06/27/23] Exam Physical Exam Vital Signs: Temp Pulse Resp BP Pulse Ox O2 Del Method 98 F 113 H 16 153/79 H 98 Room Air 06/27/23 14:31 06/27/23 14:31 06/27/23 14:31 06/27/23 14:31 06/27/23 14:31 06/27/23 15:30 Narrative: GEN: AAOx3. No acute distress. Neck: No JVD. Lungs: Clear to auscultation bilaterally Heart: Regular rate and rhythm. Normal S1 and S2. No murmurs or rubs appreciated. Abdomen: Soft, nontender, nondistended, bowel sounds present. Extremities: No BLE edema. Neuro: AAOx3. No focal deficits. Results - Cardiology Labs 06/27/23 11:18 06/27/23 11:18 Lab results: Cardiac Enzymes 06/27/23 Range/Units 11:18 AST 21 (13-39) U/L Total Creatine Kinase 70 (30-223) U/L B-Natriuretic Peptide 713.0 H (5-100) pg/mL CBC 06/27/23 Range/Units 11:18 RBC 4.24 (3.90-5.60) X10E6/uL Hgb 12.6 L (13.0-17.0) g/dL Hct 38.4 L (38.8-50.0) % Plt Count 238 (150-450) x10E3/uL Neut # (Auto) 5.4 (1.8-7.7) x10E3/uL Lymph # (Auto) 1.2 (1.00-4.8) x10E3/uL [place] # (Auto) 1.0 H (0.0-0.8) x10E3/uL Eos # (Auto) 0.1 (0.0-0.45) x10E3/uL Baso # (Auto) 0.1 (0.0-0.2) x10E3/uL Comprehensive Metabolic Panel 06/27/23 Range/Units 11:18 Sodium 140 (136-145) mmol/L Potassium 4.5 (3.5-5.1) mmol/L Chloride 109 H (98-107) mmol/L Carbon Dioxide 22.5 (21.0-31.0) mmol/L BUN 25 (7-25) mg/dL Creatinine 1.24 (0.70-1.30) mg/dL Glucose 99 (70-100) mg/dL Calcium 9.2 (8.6-10.3) mg/dL AST 21 (13-39) U/L ALT 34 (7-52) U/L Alkaline Phosphatase 112 H (34-104) U/L Total Protein 7.1 (6.4-8.9) gm/dL Albumin 4.1 (3.5-5.7) gm/dL Intake and Output 06/27/23 06/27/23 06/27/23 07:59 15:59 23:59 Other: # Voids 0 # Bowel Movements 0 Weight 116 kg Date of Last Bowel Movement 06/26/23 Patient Weight 06/27/23 23:59 Weight 116 kg Lab 06/27/23 11:18 PT 12.9 INR 1.1 APTT 30.4 A&P - Cardiology (1) Atrial fibrillation with RVR: Code(s): I48.91 - Unspecified atrial fibrillation (2) Fatigue: Code(s): R53.83 - Other fatigue (3) Hypertension: Code(s): I10 - Essential (primary) hypertension (4) Hyperlipidemia: Code(s): E78.5 - Hyperlipidemia, unspecified (5) GERD (gastroesophageal reflux disease): Code(s): K21.9 - Gastro-esophageal reflux disease without esophagitis Plan Mr. Hines is a 77 year old male with PMH significant for HTN, HLD, GERD and CKD 3 who presented after being found to have new onset Afib during a 6 month check up at his PCP's office. Assessment: New onset Afib with RVR. [id number] =3 HTN CKD 3 GERD HLD Plan: - Continue Cardizem gtt for rate control. Replete electrolytes to maintain K>4 and Mg>2. - ECHO to evaluate EF and atria. - Continue Eliquis 5mg BID - Will follow Documented By: Radha Ames MD 06/27/23 170 Signed By: <Electronically signed by Radha Ames MD> 06/27/23 1721 [facility] Work Phone: Discharek summary Author Angeli Broderick [facility] June 30, 2023 1:36pmNote Date/TimeMay 2023 1:36[place] [address] Discharge Summary Signed Patient: Indiana Hines MR#: [id number] : 1945 Acct:[id number] Age/Sex: 77 / M Adm Date: 4 Loc: Room: [address] [place] [address]: Angeli Broderick MD Copies to: Juvencio Sanchez,DO Angeli Broderick MD~ Providers Date of Discharge: 06/30/23 Discharging Provider: Angeli Broderick Primary Care Provider: Juvencio Sanchez Consults: 06/27/23 13:22 Consult to Cardiology Routine Comment: Consulting Provider: [facility] - Cardiology Reason For Exam: newonset afib Has Provider Been Notified: Yes Date of Notification: 06/27/23 Time of Notification: 14:22 Discharge Diagnosis (1) Atrial fibrillation with RVR: (2) Fatigue: (3) Hypertension: (4) Hyperlipidemia: (5) GERD (gastroesophageal reflux disease): Final Diagnosis Final Discharge Diagnosis: As above Summary Hospital Course Hospital course: Patient is a pleasant 77-year-old male with past medical history of hypertension, chronic kidney disease stage III and other medical comorbidities. Patient presented to ER with complaint of fatigue, generalized weakness and found to be in atrial fibrillation by his PCP. In the ER he was found to bein A- fib with rapid ventricular rate. Patient denies prior history of cardiac arrhythmia but mentioned feeling tired and having shortness of breath on exertion for last couple of weeks. He was admitted and started on Cardizem drip. After discussing risk including life-threatening bleeding and benefits started on anticoagulation, which patient agreed. Cardiology was consulted and initially plan was ANDRIY and cardioversion. And for ANDRIY was unsuccessful as patient became hypoxic. Plan for outpatientcardioversion in 4 weeks after patient being on anticoagulation. Will follow-up with cardiology as an outpatient. Started on amiodarone and beta-mukul. Patient has been cleared by cardiology to be d ischarged home since heart rate is better controlled. Transthoracic echocardiogram showed EF of 45 to 50% with normal LV wall motion. Patient is advised to return to ER if develop chest pain, severe shortness of breath or persistent tachycardia. Condition Condition at Discharge: Stable Status at Discharge Functional status at discharge: independent ambulation Overall status at discharge: patient is back to baseline Time Spent with Patient Time spent providing/coordinating discharge services (# min): 35 Surgeries and Procedures Operation Date: 06/29/23 14:45 Actual Procedures p OR Attempted ANDRIY(Not Applicable) - Radha Ames MD Discharge Plan Discharge Plan Patient Disposition: Home Activity: No Activity Restriction Diet: Low-Sodium Additional Instructions: Cardioversion is scheduled for 07/28/2023 at 9:30am, you will need to be at [facility] at 8:30am. Take medications with sips of water. Nothing to eat or drink after midnight. Instructions: Atrial Fibrillation (DC), Know your Meds Prescriptions: New Eliquis 5 mg Tablet 5 mg PO BID 30 Days Qty: 60 2RF metoprolol succinate 50 mg Tablet Extended Release 24 Hr 50 mg PO BID 30 Days Qty: 60 2RF amiodarone 200 mg tablet 400 mg PO BID 10 Days Qty: 40 0RF amiodarone 200 mg tablet 200 mg PO DAILY 30 Days Qty: 30 2RF Continued omeprazole 40 mg capsule,delayed release(DR/EC) 40 mg PO DAILY Qty: 90 3RF lisinopril 5 mg tablet 5 mg PO DAILY coenzyme Q10 [Co Q-10] 100 mg capsule 100 mg PO DAILY Zinc and vitamin c PO probiotic PO Vitamin d 3 PO minocycline 100 mg capsule 100 mg PO DAILY Tylenol PM Extra Strength 25-500 mg tablet 1 tab PO QHS PRN (Reason: sleep) ascorbic acid (vitamin C) 500 mg capsule 1 cap PO DIRECTED Rx Instructions: FreeTextSig: as directed Orally; Note: Source Status: Taking; Provider: Jeremy Birmingham acetaminophen [Tylenol Arthritis Pain] 650 mg tablet extended release 2 tab PO Q8HR Rx Instructions: FreeTextSi tablets as needed Orally every 8 hrs; Note: Source Status: Taking; Provider: Marino Gomes ( ) Men's 50 Plus Multivitamin 400-20-370 mcg tablet 1 tab PO DAILY omega 1-yex-dmd-fish oil [Fish Oil] 1,200 (144-216) mg capsule 1 cap PO DAILY rosuvastatin 10 mg tablet 10 mg PO DAILY Held amlodipine 5 mg Tablet 5 mg PO DAILY Hold Instructions: hold until seen by cardiology Other Ambulatory Orders: CA cardioversion/defib CPR (Routine) Timeframe: [id number] Facility: [facility] - Location: [facility] Med OutPt Ordered By: Radha Ames Follow Up: Juvencio Sanchez DO [Primary Care Provider] - (The office is aware of your hospital stay and need for follow up, the office will call you to schedule. Please call the office if you have not heard from them by the next business day.) Radha Ames MD [Active Staff] - 08/28/23 2:40 pm (We will do cardioversion in4 weeks, on 07/27 [facility]. Be at [facility] at 8:30am. ) Exam Physical Exam Vital Signs: Temp Pulse Resp BP Pulse Ox O2 Del Method O2 Flow Rate 97.5 F L 113 H 18 133/75 99 Room Air 2 06/30/23 12:10 06/30/23 12:10 06/30/23 12:10 06/30/23 12:10 06/30/23 12:10 06/30/23 12:10 06/29/23 15:00 Const Orientation: alert, awake and oriented x3 Resp Effort & Inspection: normal respiratory effort and able to speak in complete sentences Auscultation: no rales, no rhonchi and no wheezes Cardio Rhythm: abnormal rhythm irregularly irregular Heart Sounds: S1 normal and S2 normal Bruits: abdominal aortic bruit GI Palpation: soft, not firm, no guarding and nontender Neuro General: patient alert, patient awake, patient oriented x3, moves all extremities, no focal motor deficits and CN's II-XI intact bilaterally Documented By: Angeli Broderick MD 06/30/23 1332 Signed By: <Electronically signed by Angeli Broderick MD> 06/30/23 1336 [facility] Work Phone: Evaluation + Plan note Future Appointments Appointment Date:10/13/2021 10:45:00 AM Scheduled Provider:Akbar TORRES MD Location:[facility] Appointment Type:URO Office Visit Appointment Date:10/20/2021 10:45:00 AM Scheduled Provider:Akbar TORRES MD Location:[facility] Appointment Type:URO Office Visit Future Scheduled Tests Laboratory* PSA Total 03/17/21 [facility] Evaluation + Plan note Future Appointments Appointment Date:10/20/2021 10:30:00 AM Scheduled Provider:Akbar TORRES MD Location:[facility] Appointment Type:URO Office Visit Future Scheduled Tests Laboratory* PSA Total 03/17/21 [facility] Evaluation + Plan note Future Appointments Appointment Date:09/07/2022 07:30:00 AM Scheduled Provider:Akbar TORRES MD Location:[facility] Appointment Type:URO Procedure 15 min Diagnostic Tests Pending * Uro[facility] Fish and Urine Cyto ([facility]) 03/09/22 Future Scheduled Tests Laboratory* PSA Total 03/17/21 [facility] evaluation + Plan note Future Appointments Appointment Date:09/28/2022 09:15:00 AM Scheduled Provider:DUSTY WHIPPLE PA-C Location:[facility] Appointment Type:URO Office Visit Appointment Date:10/05/2022 09:15:00 AM Scheduled Provider:DUSTY WHIPPLE PA-C Location:[facility] Appointment Type:URO Office Visit [facility] evaluation + Plan note Future Appointments Appointment Date:11/27/2023 09:30:00 AM Scheduled Provider:JOHN Haywood APRN, [place] [facility] Location:[facility] Appointment Type:URO Office Visit Appointment Date:12/11/2023 09:30:00 AM Scheduled Provider:JOHN Haywood APRN, [place] [facility] Location:[facility] Appointment Type:URO Office Visit [facility] evaluation + Plan note Future Appointments Appointment Date:12/11/2023 09:30:00 AM Scheduled Provider:JOHN Haywood APRN, [place] [facility] Location:[facility] Appointment Type:URO Office Visit [facility] Evaluation + Plan note Future Appointments Appointment Date:10/01/2024 08:00:00 AM Scheduled Provider:Akbar TORRES MD Location:[facility] Appointment Type:URO Procedure 15 min [facility] evaluation noteNo assessment information [facility] Work Phone: Evaludcurr noteNo InformationProv[facility] [employer] Other Evaluation note* Diagnosis S/P revision of total hip Hip joint replacement by other means [facility] History of revision of total replacement of right hip joint- Primary History of total knee replacement, left [facility] Diagnosis Spinal stenosis of lumbar region with neurogenic claudication- Primary Spinal stenosis, lumbar region, with neurogenic claudication [facility] Diagnosis Onychomycosis- Primary Dermatophytosis of nail Pain in both feet [facility] Diagnosis Spinal stenosis of lumbar region with neurogenic claudication- Primary Spinal stenosis, lumbar region, with neurogenic claudication Lumbar spondylosis Lumbosacral spondylosis without myelopathy [facility] Diagnosis Onset Date Resolution Status CKD (chronic kidney disease) stage 3, GF R 30-59 ml/min acuteHyperlipidemiaacuteHypertensionacuteIrregular heart beatacutePersistent atrial fibrillationacute [facility] Work Phone: Evaluation note* Diagnosis Onset Date Resolution Status CKD (chronic kidney disease) stage 3, GF R 30-59 ml/min acuteHyperlipidemiaacuteHypertensionacuteIrregular heart beatacutePersistent atrial fibrillationacuteCKD (chronic kidney disease) stage 3, GFR 30-59 ml/min acuteHyperlipidemiaacuteHypertensionacuteIrregular heart beatacutePersistent atrial fibrillationacute [facility] Work Phone: Evaluation note* Diagnosis Onychomycosis- Primary Dermatophytosis of nail Corns and callosities Circulating anticoagulant disorder (CMS/HCC) Other and unspecified coagulation defects Pain in both feet documented in this encounter [facility] HealthcareEvaluation [facility]* Diagnosis S/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 HealthcareHistory and physical note Author Angeli Broderick [facility] June 27, 2023 2:09pmNote Date/TimeMay 2023 1:19[place] [address] Hospitalist H&P Signed with Addenda Patient: Indiana Hines MR#: [id number] : 1945 Acct:[id number] Age/Sex: 77 / M Adm Date: 4 Loc: ER Room: Type: [facility] ER Attending Dr: Copies to: Kevin Nunez, DO Juvencio Sanchez,DO Angeli Broderick MD~ ADDENDUM1 Patient was personally seen by me on the day of encounter, reviewed his history and performed pantoja elements of exam and formulated the plan of care and confirmedthe resident/interns note below. Patient will be admitted for newly diagnosed atrial fibrillation with rapid ventricular rate. He did mention feeling tired with fatigue. No prior history of coronary disease or cardiac arrhythmia. Discussed with patient and his regarding anticoagulant patient occluding risk of bleeding which could be life- threatening. Patient denies having prior history of GI bleed or bleeding disorder. He agrees with anticoagulation and has been started on Eliquis. Addendum Documented By: Angeli Broderick MD 06/27/23 1409 Addendum Signed By: <Electronically signed by Angeli Broderick MD> 06/27/23 1409 HPI DATE OF EXAMINATION: 06/27/23 CHIEF COMPLAINT: Feeling tired and weak, referral from PCP finding irregular heart rate HISTORY OF PRESENT ILLNESS: Mr. Hines is a 77-year-old male with a past medical history of pilonidal cyst [id number], kidney disease, secondary hyperparathyroidism, CKD stage III, neuropathy, hammertoe of right foot, GERD, elevatedPSA, herniated disc in 1977, and bladdercancer presented to the emergency department today after a visit with his PCP. On examination, his PCP noted an irregular heart rate along with the patient complaining of more easily tiring with exertion and feeling weak. PCP instructed the patient to come tot emergency department which the patient didat this time. Per the documentation, patient denied chest pain, palpitations. He stated that he feels fine sitting around, but notes his symptoms appear when he moves around and exerts himself. He did confirm some shortness of breath. He denied any prior issues with GI bleeding and prior heart history. Vital signs in the emergency department reveal elevated blood pressure 136/59 and tachycardia ranging from 122 to 137 bpm. Lab review in the emergency department reveals slightly low hemoglobin at 12.6, slightly low hematocrit at 38.4, high RDW at 15.3, high RDW at 15.3, monocyte number at 1.0, chloride at 109, low magnesium at 1.5, slightly high ALP at 112, elevated BNP at 713. Chestx-ray reveals borderline cardiomegaly and chronic nonspecific interstitial change. EKG reveals atrial fibrillation with RVR. On entrance to the room, patient is resting in bed with his at bedside. Heconfirms the story as noted above. Furthermore, patient notes that his kidney disease was caused by taking nafcillin in the past, and his kidney disease has resolved since then. Patient confirms that he has never had anyheart surgeriesor history of heart disease. He denies a history of congestive heart failure, hypertension, diabetes, stroke, and vascular pathology. Patient and note that they were at the PCP for their 6-month lab work check. He denies headache,changes in vision, changes in hearing, nausea, vomiting, diarrhea, constipation,belly pain, numbness, tingling, and rash. All questions and concerns are addressed at this time. Review of Systems Review of Systems All other systems reviewed & are negative unless noted below or in HPI [facility] Medical History (Updated 06/27/23 @ 13:16 by Roberto Salvador DO, RES) Hx of pilonidal cyst 1990 [place] kid w cr kid I-IV Secondary hyperparathyroidism CKD (chronic kidney disease) stage 3, GFR 30-59 ml/min Neuropathy Hammer toe of right foot GERD (gastroesophageal reflux disease) Elevated PSA Herniated disc 1977 back Bladder cancer Surgical History History of colonoscopy 2006 History of total right knee replacement 2013 History of left knee replacement 1999 History of total hip replacement 08/13/2014 Family History Brother Family history of mental disorder Legacy FamHx Relation: Brother(s); Legacy FamHx Problem: Diagnosed with Mental Illness Daughter Legacy FamHx Relation: Daughter(s) Father 94 yrs Family/Other Legacy FamHx Problem: 1 BROTHER OVERDOSE Grandparent Legacy FamHx Relation: Maternal Grand Father Grandparent Legacy FamHx Relation: Maternal Grand Mother Grandparent Legacy FamHx Relation: Paternal Grand Father Grandparent Legacy FamHx Relation: Paternal Grand Mother Mother 94 yrs Social History Smoking Status: Former smoker Substance Use Type: Alcohol Meds Medications and Allergies Allergies nafcillin Adverse Reaction (Verified 06/27/23 11:06) Unknown Reaction Home Medications amlodipine 5 mg tablet 5 mg PO DAILY 05/06/17 [History Confirmed 06/27/23] omeprazole 40 mg capsule,delayed release 40 mg PO DAILY #90 caps 04/17/23 [Rx Confirmed 06/27/23] acetaminophen 650 mg tablet,extended release (Tylenol Arthritis Pain) 2 tab PO Q8HR 04/19/23 [History Confirmed 06/27/23] ascorbic acid (vitamin C) 500 mg capsule 1 cap PO DIRECTED 04/19/23 [History Confirmed 06/27/23] yhywcypuwxnw-gzu-jxrhu acid-vit K-lycop 400 mcg-20 mcg-370 mcg tablet (Men's 50 Plus Multivitamin) 1 tab PO DAILY 04/19/23 [History Confirmed 06/27/23] omega 5-nve-kxv-fish oil 1,200 mg (144 mg-216 mg) capsule (Fish Oil) 1 cap PO DAILY 04/19/23 [History Confirmed 06/27/23] Vitamin d 3 PO 06/27/23 [History] Zinc and vitamin c PO 06/27/23 [History] coenzyme Q10 100 mg capsule (Co Q-10) 100 mg PO DAILY 06/27/23 [History Confirmed 06/27/23] diphenhydramine 25 mg-acetaminophen 500 mg tablet (Tylenol PM Extra Strength) 1 tab PO QHS PRN sleep 06/27/23 [History Confirmed 06/27/23] lisinopril 5 mg tablet 5 mg PO DAILY 06/27/23 [History Confirmed 06/27/23] minocycline 100 mg capsule 100 mg PO DAILY 06/27/23 [History Confirmed 06/27/23] probiotic PO 06/27/23 [History] rosuvastatin 10 mg tablet 10 mg PO DAILY 06/27/23 [History Confirmed 06/27/23] Exam Physical Exam Vital Signs: Temp Pulse Resp BP Pulse Ox O2 Del Method 97.5 F L 137 H 22 127/88 100 Room Air 06/27/23 11:06 06/27/23 12:35 06/27/23 12:33 06/27/23 12:33 06/27/23 12:33 06/27/23 12:33 Narrative: General: A&Ox4, no acute distress HEENT: head atraumatic, normocephalic, moist mucous membranes Neck: supple no masses, no lymphadenopathy CVS: Irregularly irregular rate and rhythm, no murmurs or gallops, atrial fibrillation with RVR on EKG. Respiratory: clear to auscultation bilaterally, no wheezing or crackles, symmetric expansion GI: soft, nondistended, nontender, positive bowel sounds with no organomegaly Extremity: moves all extremities, no restrictions of movements, no calf tenderness, 1+ pitting edema bilaterally in lower extremities. Neuro: Moves all extremities in all planes of motion. Skin: dry, intact no rashes or lesions Psych: Cooperative, congruent mood, bright affect Results - Hospitalist H&P Lab Results Labs: Laboratory Last Values Corrected WBC 7.7 X10E3/uL (4.1-10.5) 06/27/23 11:18 Uncorrected WBC Count 7.7 x10E3/uL (4.1-10.5) 06/27/23 11:18 RBC 4.24 X10E6/uL (3.90-5.60) 06/27/23 11:18 Hgb 12.6 g/dL (13.0-17.0) L 06/27/23 11:18 Hct 38.4 % (38.8-50.0) L 06/27/23 11:18 MCV 90.7 fl (83.5-101) 06/27/23 11:18 MCH 29.6 pg (27.5-35.2) 06/27/23 11:18 MCHC 32.7 g/dL (32.5-35.6) 06/27/23 11:18 RDW 15.3 % (12.0-14.8) H 06/27/23 11:18 Plt Count 238 x10E3/uL (150-450) 06/27/23 11:18 MPV 9.4 fl (6.6-10.1) 06/27/23 11:18 Neut % (Auto) 69.3 % (.) 06/27/23 11:18 Lymph % (Auto) 15.0 % (.) 06/27/23 11:18 [place] % (Auto) 13.3 % (.) 06/27/23 11:18 Eos % (Auto) 1.7 % (.) 06/27/23 11:18 Baso % (Auto) 0.7 % (.) 06/27/23 11:18 Nucleat RBC Rel Count 0.1 /100 WBC (0-0.5) 06/27/23 11:18 Neut # (Auto) 5.4 x10E3/uL (1.8-7.7) 06/27/23 11:18 Lymph # (Auto) 1.2 x10E3/uL (1.00-4.8) 06/27/23 11:18 [place] # (Auto) 1.0 x10E3/uL (0.0-0.8) H 06/27/23 11:18 Eos # (Auto) 0.1 x10E3/uL (0.0-0.45) 06/27/23 11:18 Baso # (Auto) 0.1 x10E3/uL (0.0-0.2) 06/27/23 11:18 Monocyte Dist Width 18.19 % (0.00-20.00) 06/27/23 11:18 PT 12.9 Seconds (9.0-12.9) 06/27/23 11:18 INR 1.1 06/27/23 11:18 APTT 30.4 Seconds (25.1-36.5) 06/27/23 11:18 PHA Creatinine Clear 65.54 06/27/23 11:18 Sodium 140 mmol/L (136-145) 06/27/23 11:18 Potassium 4.5 mmol/L (3.5-5.1) 06/27/23 11:18 Chloride 109 mmol/L (98-107) H 06/27/23 11:18 Carbon Dioxide 22.5 mmol/L (21.0-31.0) 06/27/23 11:18 Anion Gap 13.0 mEq/L (6.0-15.0) 06/27/23 11:18 BUN 25 mg/dL (7-25) 06/27/23 11:18 Creatinine 1.24 mg/dL (0.70-1.30) 06/27/23 11:18 Est GFR (CKD-EPI) 59.511 mL/Min 06/27/23 11:18 Glucose 99 mg/dL (70-100) 06/27/23 11:18 Calcium 9.2 mg/dL (8.6-10.3) 06/27/23 11:18 Magnesium 1.5 mg/dL (1.9-2.7) L 06/27/23 11:18 Total Bilirubin 0.6 mg/dl (0.3-1.0) 06/27/23 11:18 AST 21 U/L (13-39) 06/27/23 11:18 ALT 34 U/L (7-52) 06/27/23 11:18 Alkaline Phosphatase 112 U/L (34-104) H 06/27/23 11:18 Total Creatine Kinase 70 U/L (30-223) 06/27/23 11:18 Troponin I High Sens 10.1 pg/mL (0.0-20.0) 06/27/23 11:18 B-Natriuretic Peptide 713.0 pg/mL (5-100) H 06/27/23 11:18 Total Protein 7.1 gm/dL (6.4-8.9) 06/27/23 11:18 Albumin 4.1 gm/dL (3.5-5.7) 06/27/23 11:18 Globulin 3.0 gm/dL 06/27/23 11:18 Albumin/Globulin Ratio 1.4 06/27/23 11:18 Assessment & Plan Assessment/Plan (1) Atrial fibrillation with RVR: (2) Elevated brain natriuretic peptide (BNP) level: (3) Hypomagnesemia: Plan Atrial fibrillation with RVR, newly diagnosed. -Continue telemetry. -Consult cardiology. -Continue diltiazem IV. -Start apixaban 5 mg p.o. twice daily. -Monitor vitals every 2 hours. -Start normal p.o. diet. -Normal activity level as tolerated. Elevated brain natriuretic peptide level -Obtain echocardiogram. -Consult cardiology. Hypomagnesemia -Magnesium was given in the emergency department. -Recheck level in the morning. Other chronic condition -Continue current at home medication regimen. IP vs OBS Justification Based on differential dx, clinical care plan, and risk of adverse events, if untreated, in my clinical judgement this patient requires an acute care setting as: INPATIENT because of an expectation ofan over 2 midnight stay. Estimated length of stay (# of days): 3 Documented By: Angeli Broderick MD 06/27/23 1254 Signed By: <Electronically signed by Angeli Broderick MD> 06/27/23 1408 <Electronically signed by DO ARNULFO Salvador> 06/27/23 1316 [facility] Work Phone: Hospital course Narrative No data available for this section [facility] Hospital Discharge instructions No data available for this section [facility] Discharge instructionsAmbulatory Orders* Referral to Cardiology Time Frame: 06/27/23, Location: None Selected [facility] Work Phone: Hospital Discharge instructions Additional Instructions Wound Care Patient Instructions GOALS OF HOME CARE: -Reduce pain, swelling, reduce the risk of infection, and help wounds in the healing process. -If injury to arms and/or legs: Elevate the injured extremity higher than the level of the heart. -Drink plenty of fluids and eat nutritious meals high in protein. BACITRACIN/GENTAMICIN Dressing: -After cleaning affected areas, apply a thin layer of antibiotic ointment to the area.. -Dress with a non-stick/non-adherent layer, wrapped with gauze dressing, and secured. Exception being fingers and face. -This should be done 2 times a day until follow up, face pham and fingers do not require a dressing and can be left open to air. GOALS OF HOME CARE: -Reduce pain, swelling, reduce the risk of infection, and help wounds in the healing process. -If injury to arms and/or legs: Elevate the injured extremity higher than the level of the heart. -Drink plenty of fluids and eat nutritious meals high in protein. -Yellow drainage is normal: Green or foul-smelling drainage should be evaluated by a primary care provider. SIGNS OF INFECTION - Monitor the wound for signs of infection, including increased redness, swelling, warmth, pus, or a foul odor. - If you develop a fever, increased pain, or if the wound appears to be getting worse rather than better, contract your healthcare provider immediately. It is very important that you follow up with your primary care provider in the next 1-2 days unless instructed to do otherwise. If you do not have a primary care provider, you can contact the [facility] and ask about being established for primary care services. If you require specialist follow up, such as with an orthopedic physician, senior ux developer, urologist, or other medical specialty, you should contact the specialty clinic as soon as possible to schedule a follow up appointment. If you are established with a specialist, you can contact your preferred physician for follow up. If you are not already established with the specialist you need, you may have contact information provided to you with these discharge instructions. If you are being prescribed medications, take exactly as prescribed. Antibiotics, if prescribed, should be taken until the entire course is completed. You should not have left over antibiotics. Continue to take any previously prescribed home medications unless instructed otherwise. Drinking plenty of water and rest is encouraged for improved symptom management. If you are experiencing fever or mild to moderate pain, you should first take Tylenol or ibuprofen available [id number]. Medications, if prescribed to treat pain from the emergency department, are intended to provide relief for severe pain that is not relieved by other methods of pain relief, you should use these medications cautiously as many are known to cause sedation/sleepiness, increased risk for falls, and other effects such as constipation. If your symptoms worsen please return to the ED or if you have any other concerns[facility] Work Phone: Progress note No data available for this section [facility] Progress note Author Angeli Broderick [facility] June 28, 2023 11:31amNote Date/TimeMay 2023 11:20[place] [address] Hospitalist Progress Note Signed Patient: Indiana Hines MR#: [id number] : 1945 Acct:[id number] Age/Sex: 77 / M Adm Date: 4 Loc: Room: 7S0832-1 Type: ADM IN Attending Dr: Angeli Broderick MD Copies to: ~ Date of Service: 06/28/2023 Subjective Subjective Narrative: Patient examined at bedside with no overnight event. Remains in A-fib with heart rate in 100s on Cardizem drip. Mentioned getting short of breath on exertion but denies having chest pain. Appreciate cardiology consultation with plan to obtain 2D echocardiogram. Exam Physical Exam Vital Signs: Temp Pulse Resp BP Pulse Ox O2 Del Method 97.9 F 104 H 18 123/86 96 Room Air 06/28/23 07:46 06/28/23 09:04 06/28/23 07:46 06/28/23 09:04 06/28/23 07:46 06/28/23 08:00 Const Orientation: alert, awake and oriented x3 Resp Effort & Inspection: normal respiratory effort and able to speak in complete sentences Auscultation: no rales, no rhonchi and no wheezes Cardio Rhythm: abnormal rhythm irregularly irregular Heart Sounds: S1 normal Bruits: abdominal aortic bruit GI Palpation: soft, not firm, no guarding and nontender Neuro General: patient alert, patient awake, patient oriented x3, moves all extremities, no focal motor deficits and CN's II-XI intact bilaterally Objective Lab Results 06/27/23 11:18 06/27/23 11:18 Meds Allergies and Active Meds Allergies nafcillin Adverse Reaction (Verified 06/27/23 11:06) Unknown Reaction Active Meds: Active Medications Generic Name Dose Route Start Last Admin Trade Name Freq PRN Reason Stop Dose Admin Acetaminophen 650 mg 06/27/23 21:13 Acetaminophen 325 Mg Tablet PO 06/26/24 13:59 Q4HR PRN Pain Apixaban 5 mg 06/27/23 21:00 06/28/23 09:04 Apixaban 5 Mg Tablet PO 06/26/24 20:59 5 mg BID MELANIE Administration Atorvastatin Calcium 20 mg 06/27/23 14:00 06/28/23 09:04 Atorvastatin 20 Mg Tablet PO 06/26/24 13:59 20 mg DAILY MELANIE Administration Diltiazem HCl 100 mg in 100 mls @ 10 mls/hr 06/27/23 11:15 06/28/23 09:04 Cardizem IV 06/26/24 11:14 15 mg/hr .Q10H MELANIE 15 mls/hr Administration Protocol 10 MG/HR Sodium Chloride 1,000 mls @ 20 mls/hr 06/27/23 17:00 06/27/23 17:26 0.9% Sodium Chloride 1,000 Ml IV 06/26/24 16:59 20 mls/hr .Q24H MELANIE Administration Lisinopril 5 mg 06/27/23 14:00 06/28/23 09:04 Lisinopril 5 Mg Tablet PO 06/26/24 13:59 5 mg DAILY MELANIE Administration Pantoprazole Sodium 40 mg 06/27/23 13:30 06/28/23 09:04 Pantoprazole 40 Mg Tablet.Dr DAVIS 06/26/24 13:29 40 mg BID MELANIE Administration Sodium Chloride 0 ml 06/27/23 11:06 06/27/23 11:18 Sodium Chloride 0.9 % 10 Ml Syringe IV-PUSH 06/26/24 11:05 10 ml PRN PRN Administration Flush A&P - Hospitalist Assessment/Plan (1) Atrial fibrillation with RVR: (2) Elevated brain natriuretic peptide (BNP) level: (3) Hypomagnesemia: (4) Hypertension: Plan He remains in A-fib with rapid ventricular rate and currently on Cardizem drip. Ending echocardiogram result. Appreciate cardiology consultation. Magnesium has been replaced. Patient started on Eliquis after discussing risk and benefit of anticoagulation. Blood pressure well-controlled and continue lisinopril. Amlodipine has been held since patient is on Cardizem. Continue statin and PPI as per home medication. Documented By: Angeli Broderick MD 06/28/23 1118 Signed By: <Electronically signed by Angeli Broderick MD> 06/28/23 1131 [facility] Work Phone: Progress note Author Radha Ames [facility] June 28, 2023 6:21pmNote Date/TimeMay 2023 6:19pm[place] [address] Cardiology Progress Note Signed Patient: Indiana Hines MR#: [id number] : 1945 Acct:[id number] Age/Sex: 77 / M Adm Date: 4 Loc: 4 Room: [address] [place] [address] Type: ADM IN Attending Dr: Angeli Broderick MD Copies to: ~ Date of Service: 06/28/2023 Subjective Interval history: Mr. Hines is a 77 year old male with PMH significant for HTN, HLD, GERD and CKD 3 who presented after being found to have new onset Afib during a 6 month check up at his PCP's office. Pt reports 1 week history fatigue and dyspnea. Denied chest pain, orthopnea, PND, BLE edema, palpitations, light headedness or syncope. He was noted to be tachycardic with irregular rhythm and was advised topresent to [facility]. EKG showed Afib with RVR and he was admitted for further management. He is currently on Cardizem gtt with some improvement in HR. Interim evaluation 06/28/2023: Remains in atrial fibrillation with HR in the 110s. Exam Physical Exam Vital Signs: Temp Pulse Resp BP Pulse Ox O2 Del Method 97.7 F 98 18 116/64 98 Room Air 06/28/23 15:04 06/28/23 17:46 06/28/23 15:04 06/28/23 17:46 06/28/23 15:04 06/28/23 15:04 Narrative: GEN: AAOx3. No acute distress. Neck: No JVD. Lungs: Clear to auscultation bilaterally Heart: Regular rate and rhythm. Normal S1 and S2. No murmurs or rubs appreciated. Abdomen: Soft, nontender, nondistended, bowel sounds present. Extremities: No BLE edema. Neuro: AAOx3. No focal deficits. Objective Labs 06/27/23 11:18 06/27/23 11:18 Labs: Laboratory Results - last 24 hr 06/28/23 06:41 Magnesium 1.9 TSH 3rd Generation 1.71 A&P - Cardiology (1) Atrial fibrillation with RVR: Code(s): I48.91 - Unspecified atrial fibrillation (2) Fatigue: Code(s): R53.83 - Other fatigue (3) Hypertension: Code(s): I10 - Essential (primary) hypertension (4) Hyperlipidemia: Code(s): E78.5 - Hyperlipidemia, unspecified (5) GERD (gastroesophageal reflux disease): Code(s): K21.9 - Gastro-esophageal reflux disease without esophagitis Plan Mr. Hines is a 77 year old male with PMH significant for HTN, HLD, GERD and CKD 3 who presented after being found to have new onset Afib during a 6 month check up at his PCP's office. Assessment: New onset Afib with RVR. [id number] =3 HTN CKD 3 GERD HLD Plan: - HR better controlled but remains in Afib on Cardizem gtt. - Will stop Cardizem and start Amiodarone bolus and gtt and plan for ANDRIY/DCCV ron. - ECHO showed mild LV dysfunction; LVEF 45-50% with moderately dilated RA. - Continue Eliquis 5mg BID. Documented By: Radha Ames MD 06/28/231814 Signed By: <Electronically signed by Radha Ames MD> 06/28/23 182 [facility] Work Phone: Progress note Author Angeli Broderick [facility] June 29, 2023 11:45amNote Date/TimeMay 2023 11:45am[place] [address] Hospitalist Progress Note Signed Patient: Indiana Hines MR#: [id number] : 1945 Acct:[id number] Age/Sex: 77 / M Adm Date: 4 Loc: Room: [address] [place] [address] Type: ADM IN Attending Dr: Angeli Broderick MD Copies to: ~ Date of Service: 06/29/2023 Subjective Subjective Narrative: On examination patient lying comfortably but remains in A-fib with heart rate inthe 120s. He was transferred to stepdown unit yesterday and started on amiodarone drip with plan for ANDRIY and cardioversion later today. Patient denieshaving chest pain. Exam Physical Exam Vital Signs: Temp Pulse Resp BP Pulse Ox O2 Del Method 98.1 F 116 H 22 129/80 98 Room Air 06/29/23 11:17 06/29/23 11:17 06/29/23 11:17 06/29/23 11:17 06/29/23 11:17 06/29/23 11:17 Const Orientation: alert, awake and oriented x3 Resp Effort & Inspection: normal respiratory effort and able to speak in complete sentences Auscultation: no rales, no rhonchi and no wheezes Cardio Rhythm: abnormal rhythm irregularly irregular Heart Sounds: S1 normal and S2 normal GI Palpation: soft, not firm, no guarding and nontender Neuro General: patient alert, patient awake, patient oriented x3, moves all extremities, no focal motor deficits and CN's II-XI intact bilaterally Objective Lab Results 06/27/23 11:18 06/29/23 04:38 Meds Allergies and Active Meds Allergies nafcillin Adverse Reaction (Verified 06/27/23 11:06) Unknown Reaction Active Meds: Active Medications Generic Name Dose Route Start Last Admin Trade Name Freq PRN Reason Stop Dose Admin Acetaminophen 650 mg 06/27/23 21:13 Acetaminophen 325 Mg Tablet PO 06/26/24 13:59 Q4HR PRN Pain Apixaban 5 mg 06/27/23 21:00 06/29/23 09:18 Apixaban 5 Mg Tablet PO 06/26/24 20:59 Not Given BID MELANIE Atorvastatin Calcium 20 mg 06/27/23 14:00 06/28/23 09:04 Atorvastatin 20 Mg Tablet PO 06/26/24 13:59 20 mg DAILY MELANIE Administration Atropine Sulfate 1 mg 06/28/23 16:34 Atropine Sulfate 1 Mg/10 Ml Syringe IV-PUSH ONCE PRN Bradycardia Sodium Chloride 1,000 mls @ 20 mls/hr 06/27/23 17:00 06/28/23 20:04 0.9% Sodium Chloride 1,000 Ml IV 06/26/24 16:59 0 mls/hr .Q24H MELANIE Infusion Amiodarone HCl 450 mg/ 250 mls @ 33.333 mls/hr 06/28/23 16:30 06/29/23 02:55 Dextrose IV 06/29/23 16:29 0.5 mg/min .Q7H30M MELANIE 16.67 mls/hr Administration Protocol 1 MG/MIN Dextrose/Sodium Chloride 1,000 mls @ 20 mls/hr 06/29/23 12:00 5 % Dextrose-0.45 % Nacl IV 06/28/24 11:59 .Q24H MELANIE Dextrose/Sodium Chloride 1,000 mls @ 20 mls/hr 06/29/23 12:00 5 % Dextrose-0.45 % Nacl IV 06/30/23 11:59 .Q24H ONE Lisinopril 5 mg 06/27/23 14:00 06/28/23 09:04 Lisinopril 5 Mg Tablet PO 06/26/24 13:59 5 mg DAILY MELANIE Administration Pantoprazole Sodium 40 mg 06/27/23 13:30 06/29/23 09:18 Pantoprazole 40 Mg Tablet. PO 06/26/24 13:29 Not Given BID MELANIE Potassium Chloride 40 meq 06/29/23 09:00 Potassium Chloride Er 20 Meq Tab.Er.Prt PO STAT PRN Hypokalemia Sodium Chloride 0 ml 06/27/23 11:06 06/27/23 11:18 Sodium Chloride 0.9 % 10 Ml Syringe IV-PUSH 06/26/24 11:05 10 ml PRN PRN Administration Flush Sodium Chloride 0 ml 06/28/23 16:31 Sodium Chloride 0.9 % 10 Ml Syringe IV-PUSH 06/27/24 16:30 PRN PRN Flush Sodium Chloride 0 ml 06/28/23 16:34 Sodium Chloride 0.9 % 10 Ml Syringe IV-PUSH 06/27/24 16:33 PRN PRN Flush A&P - Hospitalist Assessment/Plan (1) Atrial fibrillation with RVR: (2) Elevated brain natriuretic peptide (BNP) level: (3) Hypomagnesemia: (4) Hypertension: Plan Appreciate cardiology consultation and patient has been started on amiodarone drip for plan for TEEand cardioversion. Echocardiogram showing EF of 45 to 50%with normal LV wall motion. Patient risk of developing tachycardia induced cardiomyopathy will benefit from sikhism of normal sinus rhythmand rate control. Defer further management regarding cardiomyopathy and A-fib to cardiology. Continue Eliquis, lisinopril and PPI. Documented By: Angeli Broderick MD 06/29/23 1142 Signed By: <Electronically signed by Angeli Broderick MD> 06/29/23 1145 [facility] Work Phone: Progress note Author Radha Ames [facility] June 29, 2023 5:23pmNote Date/TimeMay 2023 5:23pm[place]mond [place] [address] Cardiology Progress Note Signed Patient: Indiana Hines MR#: [id number] : 1945 Acct:[id number] Age/Sex: 77 / M Adm Date: 4 Loc: Room: [address] [place] [address] Type: ADM IN Attending Dr: Angeli Broderick MD Copies to: ~ Date of Service: 06/29/2023 Subjective Interval history: Mr. Hines is a 77 year old male with PMH significant for HTN, HLD, GERD and CKD 3 who presented after being found to have new onset Afib during a 6 month check up at his PCP's office. Pt reports 1 week history fatigue and dyspnea. Denied chest pain, orthopnea, PND, BLE edema, palpitations, light headedness or syncope. He was noted to be tachycardic with irregular rhythm and was advised topresent to [facility]. EKG showed Afib with RVR and he was admitted for further management. He is currently on Cardizem gtt with some improvement in HR. Interim evaluation 06/28/2023: Remains in atrial fibrillation with HR in the 110s. Interim evaluation 06/29/2023: Attempted ANDRIY/cardioversion today in the department and OR however pthad increased secretions and desaturations. Few TEEimages were obtained but had to be procedure hadto be stopped due to respiratory status. Exam Physical Exam Vital Signs: Temp Pulse Resp BP Pulse Ox O2 Del Method O2 Flow Rate 97.5 F L 128 H 18 141/89 H 100 Room Air 2 06/29/23 15:28 06/29/23 15:28 06/29/23 15:28 06/29/23 15:28 06/29/23 15:28 06/29/23 15:28 06/29/23 15:00 Narrative: GEN: AAOx3. No acute distress. Neck: No JVD. Lungs: Clear to auscultation bilaterally Heart: Irregularly irregular, tachycardic. Normal S1 and S2. No murmurs or rubs appreciated. Abdomen: Soft, nontender, nondistended, bowel sounds present. Extremities: No BLE edema. Neuro: AAOx3. No focal deficits. Objective Labs 06/27/23 11:18 06/29/23 04:38 Labs: Laboratory Results - last 24 hr 06/29/23 04:38 Sodium 139 Potassium 4.2 Chloride 108 H Carbon Dioxide 20.4 L Anion Gap 14.8 A&P - Cardiology (1) Atrial fibrillation with RVR: Code(s): I48.91 - Unspecified atrial fibrillation (2) Fatigue: Code(s): R53.83 - Other fatigue (3) Hypertension: Code(s): I10 - Essential (primary) hypertension (4) Hyperlipidemia: Code(s): E78.5 - Hyperlipidemia, unspecified (5) GERD (gastroesophageal reflux disease): Code(s): K21.9 - Gastro-esophageal reflux disease without esophagitis Plan Mr. Hines is a 77 year old male with PMH significant for HTN, HLD, GERD and CKD 3 who presented after being found to have new onset Afib during a 6 month check up at his PCP's office. - ECHO showed mild LV dysfunction; LVEF 45-50% with moderately dilated RA. Assessment: New onset Afib with RVR. [id number] =3 HTN CKD 3 GERD HLD Plan: - ANDRIY aborted today due to hypoxia and increased secretions- attempted in the ORwith anesthesia shortly after but similar findings recurred with deeper anesthesia. Would like to defer need for an advanced airway for ANDRIY and plan to anticoagulate for 4 weeks prior to DCCV. - Continue Amiodarone gtt until tomorrow. Will add Toprol 50mg BID for additional rate control. HR goal <110 - Plan to switch to PO Amiodarone tomorrow and arrange for outpatient DCCV in 4 weeks - Continue Eliquis 5mg BID - Will follow. Documented By: Radha Ames MD 06/29/231715 Signed By: <Electronically signed by Radha Ames MD> 06/29/23 1723 [facility] Work Phone: Progress note Author Radha Ames [facility] June 30, 2023 12:07pmNote Date/TimeMay 2023 12:07pm[place] [address] Cardiology Progress Note Signed Patient: Indiana Hines MR#: [id number] : 1945 Acct:[id number] Age/Sex: 77 / M Adm Date: 4 Loc: 4 Room: 2J4996-6 Type: ADM IN Attending Dr: Angeli Broderick MD Copies to: ~ Date of Service: 06/30/2023 Subjective Interval history: No acute events overnight. HR better controlled on Amiodarone gtt. HR 90-110s. Pt reports feeling subjectively better since admission. Exam Physical Exam Vital Signs: Temp Pulse Resp BP Pulse Ox O2 Del Method O2 Flow Rate 97.9 F 105 H 18 138/83 99 Room Air 2 06/30/23 08:16 06/30/23 08:16 06/30/23 08:16 06/30/23 08:16 06/30/23 08:16 06/30/23 08:16 06/29/23 15:00 Narrative: GEN: AAOx3. No acute distress. Neck: No JVD. Lungs: Clear to auscultation bilaterally Heart: Irregularly irregular. Normal S1 and S2. No murmurs or rubs appreciated. Abdomen: Soft, nontender, nondistended, bowel sounds present. Extremities: No BLE edema. Neuro: AAOx3. No focal deficits. Objective Labs 06/27/23 11:18 06/29/23 04:38 A&P - Cardiology (1) Atrial fibrillation with RVR: Code(s): I48.91 - Unspecified atrial fibrillation (2) Fatigue: Code(s): R53.83 - Other fatigue (3) Hypertension: Code(s): I10 - Essential (primary) hypertension (4) Hyperlipidemia: Code(s): E78.5 - Hyperlipidemia, unspecified (5) GERD (gastroesophageal reflux disease): Code(s): K21.9 - Gastro-esophageal reflux disease without esophagitis Plan Mr. Hines is a 77 year old male with PMH significant for HTN, HLD, GERD and CKD 3 who presented after being found to have new onset Afib during a 6 month check up at his PCP's office. - ECHO showed mild LV dysfunction; LVEF 45-50% with moderately dilated RA. Assessment: New onset Afib with RVR. [id number] =3 HTN CKD 3 GERD HLD Plan: - Attempted ANDRIY yesterday but aborted due to increased secretions and hypoxia. Limited images showed spontaneous echo contrast in the SREE with decreased doppler velocities. - Will plan to anticoagulate with Eliquis 5mg BID for 4 weeks prior to DCCV - Switch to PO Amiodarone and continue loading at 400mg BID for 10 days followedby 200mg daily thereafter - Continue Toprol 50mg BID. - OK to discharge home today. Follow up with [facility] cardiology in 6 weeks. Documented By: Radha Ames MD 06/30/23 1203 Signed By: <Electronically signed by Radha Ames MD> 06/30/23 1207 [facility] Work Phone: Progress note Author Altaf Das [facility] HospitalNote Date/TimeFebruary 6th, 2025 2:15pm [facility] [place] [address] Cancer Center Note Signed Patient: Indiana Hines MR#: [id number] : 1945 Acct:[id number] Age/Sex: 78 / M Type: REG AMB Date of Service: 03/14/24 Copies to: Juvencio Sanchez,DO~ Assessment & Plan A/P (1) Bence Long protein: (2) Proteinuria: (3) Anemia of renal disease: (4) CKD (chronic kidney disease) stage 3, GFR 30-59 ml/min: Plan Mark is a 78-year-old nice gentleman was referred by Dr. Mireya Pichardo from nephrology to our hematology clinic for evaluation and management of new Bence- Long proteinuria. see HPI for complete details. 03/14/24: Patient is here for results of the BMBx, Results of the skeletal bone survey andlabs and further planning of his care and [...] biopsy and aspirate on 02/27/2024 and the resultsrevealed: Normocellular bone marrow for age in the [...] This could explain the inflammatory cells and polytypicplasma cellsseen in the bone marrow. Plan: Follow observation with repeat CBC, CMP myeloma labs in 6 months and see him then. Patient Instructions: myeloma labs,cbc,cmp in 6 months return in 6 months CHEMO PLAN No Active Chemotherapy History of Present Illness HPI Mark is a 78-year-old nice gentleman was referred by Dr. Mireya Pichardo from nephrology to our hematology clinic for evaluation and management of new Bence- Long proteinuria. Mr. Hines has a history of chronic kidney disease stage II/III with intermittentAKI. Serum creatinine ranges from 1.2-1.5. He has multiple joint osteoarthritis as well. He has a longstanding. Managedby PPI and history of A- fib underwent cardioversion in July 2023. He is on amiodarone for rhythm control and Xarelto for CVA prophylaxis. He also sees urology for bladder cancer for which she had a cystoscopy in September [address] [facility]. He was referred to our hematology clinic because Dr. Mireya Pichardo ordered urinary proteins which revealed presence of Bence-Long proteinuria. His proteinuria has could be due to his hypertensive nephrosclerosis and the prediabetes per himbut was sent to us forfurther evaluation likely with a bone marrow biopsy. Labs on 12/15/2023 revealed normal CBC except for hemoglobin of 12.5 with 0.9 absolute lymphocyte count. Creatinine is 1.41 calcium of 9.1. Iron studies were normal B12 and folate were normal LFTs were normal except for alk phos slightly elevated of 138. As urinary immunofixation revealed Bence-Long protein present. Serum immunoglobulins IgG and IgA and IgM were normal. The serum immunofixation revealed that cannot rule out presence of monoclonal protein at this point. The serum free kappa light chain was slightly elevated 23.1 and the lambda was normal at 14 and the kappa/lambda ratio was normal 1.65. Therefore patient was referred to hematology for our opinion regarding the presence of Bence-Long proteinuria and rule out amyloidosis and rule out multiple myeloma as an etiology for his chronic renal insufficiency. 03/14/24: Patient is here for results of the BMBx, Results of the skeletal bone survey andlabs and further planning of his care and [...] biopsy and aspirate on 02/27/2024 and the resultsrevealed: Normocellular bone marrow for age in the [...] This could explain the inflammatory cells and polytypicplasma cellsseen in the bone marrow. Intake Vitals/Pain Assessment 03/14/24 13:51 Height 6 ft 1 in Weight 117.027 kg BMI 34.0 Body Fat % 53.62 BP 149/75 H Blood Pressure Location Rt brachial Position Sitting Pulse 60 Pulse Source NIBP Respiration 18 Pulse Oximetry (%) 99 Oxygen Delivery Method room air Are you having pain? No Intake Visit Reasons: Follow Up after Biopsy Accompanied by: Spouse Allergies nafcillin Adverse Reaction (Severe, Verified 03/14/24 13:53) Unknown Reaction [place] Home Medications - Last Reconciled 03/14/24 by MAIK Lang acetaminophen ER (Tylenol Arthritis Pain) 2 tabs PO Q8HR amiodarone 200 mg PO DAILY 30 days amlodipine 10 mg PO DAILY 90 days ascorbate calcium (vitamin C) 500 mg PO DAILY cholecalciferol (vitamin D3) 125 mcg PO DAILY coenzyme Q10 (Co Q-10) 100 mg PO DAILY diphenhydramine-acetaminophen 25-500 mg (Tylenol PM Extra Strength) 1 tab PO QHSPRN hydrocodone-acetaminophen 5-325 mg 1 tab PO Q6HR PRN 3 days lisinopril 5 mg PO DAILY metoprolol succinate ER 25 mg PO DAILY 30 days minocycline 100 mg PO DAILY zogonfsq-djq-pntnd-vit K-lycop 400-20-370 mcg (Men's 50 Plus Multivitamin) 1 tabPO DAILY omega 9-fgt-fwe-fish oil 1,200 (144-216) mg (Fish Oil) 1 cap PO DAILY omeprazole 40 mg PO DAILY rivaroxaban (Xarelto) 20 mg PO QPM 90 days rosuvastatin 10 mg PO DAILY zinc acetate 50 mg PO DAILY Gastrointestinal Is the patient taking opioids for pain control?: Yes Bowel Protocol for Opioids Given: Yes Bowel Pattern: Regular Bowel Movement Aid(s): None Falls Fall Precaution Measures Taken: Patient in chair Nurse's Note: Patient is here for a 1 month follow up with imaging and bone marrow biopsy for review. [facility] Medical History Medical History Hypertension Hyperlipidemia Fatigue Hx of pilonidal cyst 1990 [place] kid w cr kid I-IV Secondary hyperparathyroidism CKD (chronic kidney disease) stage 3, GFR 30-59 ml/min Neuropathy Hammer toe of right foot GERD (gastroesophageal reflux disease) Elevated PSA Herniated disc 1978 back Bladder cancer Surgical History Surgical History History of neck surgery History of colonoscopy 2006 History of total right knee replacement 2013 History of left knee replacement 1999 History of total hip replacement 08/13/2014 - right hip- [facility]- CC repaired 2016 Family History Family History Father 94 yrs Cardiomyopathy Mother 94 yrs Diabetes Brother Atrial fibrillation Sister No problems noted. Social History Social History (Reviewed 02/01/24 @ 15:18 by JOCELYN Lang Smoking status: Never smoker Nicotine containing products detail: cigarette one every month or so Within the past year, how often did you have a drink containing alcohol: monthly or less Within the past year, how many standard drinks containing alcohol did you have on a typical day: 1 or 2 Within the past year, how often did you have six or more drinks on one occasion: never AUDIT-C Alcohol total score: 1 AUDIT-C Alcohol score interpretation: A score less than 4 is consistent with normal alcohol consumption. In the past 12 months, have you used illegal drugs or prescription drugs for non-medical reasons?: No Previous occupational history: Current: Retired Highest level of school completed/degree received: high school graduate Review of Systems ROS Details: All systems reviewed & no additional complaints except as documented General: Patient denied fevers, chills, rigors, weight loss or loss of appetite. Head: Patient denied any headaches or vision changes Thoracic: Patient denied any shortness of breath or cough or hemoptysis Cardiovascular patient denies any chest pain or leg edema GI: Patient denies any nausea vomiting rectal bleed diarrhea : Patient denied gross hematuria. Hematology: Patient denied any bleeding from any source. No easy bruising. Lymphatic: No enlarged LAP anywhere. Skin: Normal skin exam no rashes or suspicious lesions. Neurological patient denies any headache or dizziness or focal weakness or sensory changes. Physical Exam EXAM HEENT normocephalic atraumatic pupils are equal and round Neck supple without thyromegaly or any cervical lymphadenopathy. Chest clear to auscultation bilaterally without wheezing crackles or rhonchi Heart regular rate and rhythm S1-S2 without murmurs gallop or rub Abdomen soft nontender not distended without hepatosplenomegaly or masses clinically Extremities no edema of the lower extremities Skin without any suspicious rashes Lymphatic system no lymphadenopathy in the cervical area axillary areas or inguinal areas bilaterally Neurological exam patient is cooperative alert and oriented x3 no focal deficits. Results - [facility] ([facility] Onc) LAB RESULTS Corrected WBC 6.3 X10E3/uL (4.1-10.5) 02/27/24 09: 5 Hgb 12.1 g/dL (13.0-17.0) L 02/27/24 09: 5 Hct 36.5 % (38.8-50.0) L 02/27/24 09:02/27/24 MCV 90.0 fl (83.5-101) 02/27/24 09:02/27/24 RDW 15.2 % (12.0-14.8) H 02/27/24 09:29 02/27/24 Plt Count 200 x10E3/uL (150-450) 02/27/24 09:02/27/24 Social Determinants of Health Screening SDOH last assessed in clinic: 03/14/24 Will the patient participate in the screening?: Yes Do you worry about having a steady place to live?: No In the past 12 months, have you had to go without electric, gas, oil, or water in your home?: No Have you or anyone in your house had to go without enough food to eat?: No Has lack of reliable transportation kept you from medical appointments or from doing things needed for daily living?: No Has anyone in your support network made you feel unsafe for any reason?: No Does the patient want assistance with any of the above?: No Dictated By: Altaf Das MD DD/ 1346 Signed By: <Electronically signed by Altaf Das MD> 03/14/24 1415 [facility] Work Phone: Progress note Author Altaf [facility] Date/TimeAugust 2024 10:56am [facility] [place] [address] Cancer Center Note Signed Patient: Indiana Hines MR#: [id number] : 1945 Acct:[id number] Age/Sex: 79 / M Type: REG AMB Date of Service: 09/19/24 Copies to: Juvencio Sanchez,DO~ Assessment & Plan A/P (1) Bence Long protein: (2) Proteinuria: (3) Anemia of renal disease: (4) CKD (chronic kidney disease) stage 3, GFR 30-59 ml/min: Plan Mark is a 78-year-old nice gentleman was referred by Dr. Mireya Pichardo from nephrology to our hematology clinic for evaluation and management of new Bence- Long proteinuria. see HPI for complete details. 03/14/24: Patient is here for results of the BMBx, Results of the skeletal bone survey andlabs and further planning of his care and [...] biopsy and aspirate on 02/27/2024 and the resultsrevealed: Normocellular bone marrow for age in the [...] This could explain the inflammatory cells and polytypicplasma cellsseen in the bone marrow. 09/19/24: He is here for 6 months FU for history of Bence Long proteinuria. He denied anyB symptoms or enlarged LAP. labs on 09/12/24 [...] 129 stable rest of the LFTs are normaltotal protein is normal at 6.4 M spike is stable lites 0.2 IgG IgA and IgM are within normal range.Serum immunofixation revealed presenceof monoclonal protein is unclear at this point [...] urine UPEP and urine light chains then. Orders: Orders Complete Blood Count Auto Diff 6 Months R80.3 - Bence Long proteinuria Comprehensive Metabolic Panel 6 Months R80.3 - Bence Long proteinuria Fr Kotlik/Lambda LTC Urine 6 Months R80.3 - Bence Long proteinuria Free K+L LT Chains, Qn, S 6 Months R80.3 - Bence Long proteinuria Immunofixation,Serum 6 Months R80.3 - Bence Long proteinuria Immunoglobulins A/G/M, Qn, Ser 6 Months R80.3 - Bence Long proteinuria Protein Electrophoresis, Serum 6 Months R80.3 - Bence Long proteinuria Protein Electro, 24Hr Urine 6 Months R80.3 - Bence Long proteinuria Patient Instructions: follow up in 6 months cbc, cmp, myeloma labs, 24hour urine, urine light chains in 6 months prior to f/u CHEMO PLAN No Active Chemotherapy History of Present Illness PETER Flores is a 78-year-old nice gentleman was referred by Dr. Mireya Pichardo from nephrology to our hematology clinic for evaluation and management of new Bence- Long proteinuria. Mr. Hines has a history of chronic kidney disease stage II/III with intermittentAKI. Serum creatinine ranges from 1.2-1.5. He has multiple joint osteoarthritis as well. He has a longstanding. Managedby PPI and history of A- fib underwent cardioversion in July 2023. He is on amiodarone for rhythm control and Xarelto for CVA prophylaxis. He also sees urology for bladder cancer for which she had a cystoscopy in September [address] [facility]. He was referred to our hematology clinic because Dr. Mireya Pichardo ordered urinary proteins which revealed presence of Bence-Long proteinuria. His proteinuria has could be due to his hypertensive nephrosclerosis and the prediabetes per himbut was sent to us forfurther evaluation likely with a bone marrow biopsy. Labs on 12/15/2023 revealed normal CBC except for hemoglobin of 12.5 with 0.9 absolute lymphocyte count. Creatinine is 1.41 calcium of 9.1. Iron studies were normal B12 and folate were normal LFTs were normal except for alk phos slightly elevated of 138. As urinary immunofixation revealed Bence-Long protein present. Serum immunoglobulins IgG and IgA and IgM were normal. The serum immunofixation revealed that cannot rule out presence of monoclonal protein at this point. The serum free kappa light chain was slightly elevated 23.1 and thelambda was normal at 14 and the kappa/lambda ratio was normal 1.65. Therefore patient was referred to hematology for our opinion regarding the presence of Bence-Long proteinuria and rule out amyloidosis and rule out multiple myeloma as an etiology for his chronic renal insufficiency. 03/14/24: Patient is here for results of the BMBx, Results of the skeletal bone survey andlabs and further planning of his care and [...] biopsy and aspirate on 02/27/2024 and the resultsrevealed: Normocellular bone marrow for age in the [...] This could explain the inflammatory cells and polytypicplasma cellsseen in the bone marrow. 09/19/24: He is here for 6 months FU for history of Bence Long proteinuria. He denied anyB symptoms or enlarged LAP. labs on 09/12/24 [...] 129 stable rest of the LFTs are normaltotal protein is normal at 6.4 M spike is stable lites 0.2 IgG IgA and IgM are within normal range.Serum immunofixation revealed presenceof monoclonal protein is unclear at this point suggested repeating it in 3 to 6 months. And free kappa light chain is minimally elevated 25.8 and very stable with normal lambda at 15 and K/L ratio is 1.68 slightly elevated but stable. Intake Vitals/Pain Assessment 09/19/24 10:31 Weight 111.13 kg BP 125/57 L Blood Pressure Location Rt brachial Position Sitting Pulse 56 L Pulse Source NIBP Respiration 16 Pulse Oximetry (%) 98 Oxygen Delivery Method room air Are you having pain? Yes Pain Location back Pain scale (0-10) 8 Intake Visit Reasons: Follow Up 6 Months Accompanied by: Spouse Allergies nafcillin Adverse Reaction (Severe, Verified 09/19/24 10:33) Unknown Reaction [place] Home Medications - Last Reconciled 09/19/24 by MAIK Lang acetaminophen ER (Tylenol Arthritis Pain) 2 tabs PO Q8HR amiodarone 200 mg PO DAILY 90 days amlodipine 10 mg PO DAILY 90 days ascorbate calcium (vitamin C) 500 mg PO DAILY benzonatate take 2 (100 MG) capsules orally three times daily; cholecalciferol (vitamin D3) 125 mcg PO DAILY coenzyme Q10 (Co Q-10) 200 mg PO DAILY diphenhydramine-acetaminophen 25-500 mg (Tylenol PM Extra Strength) 1 tab PO QHSPRN finasteride 5 mg PO DAILY lisinopril 5 mg PO DAILY metoprolol succinate ER 25 mg PO DAILY 30 days minocycline 100 mg PO DAILY ighxtzwx-jdr-jnlvu-vit K-lycop 400-20-370 mcg (Men's 50 Plus Multivitamin) 1 tabPO DAILY omega 7-hfb-sze-fish oil 1,200 (144-216) mg (Fish Oil) 1 cap PO DAILY omeprazole 40 mg PO DAILY rivaroxaban (Xarelto) 20 mg PO QPM 90 days rosuvastatin 10 mg PO DAILY zinc acetate 50 mg PO DAILY Gastrointestinal Is the patient taking opioids for pain control?: No Bowel Protocol for Opioids Given: No Bowel Pattern: Regular Bowel Movement Aid(s): None Nurse's Note: Patient is here for a 6 month follow up with labs for review. no concerns voicedat time of intake. [facility] Medical History Medical History Hypertension Hyperlipidemia Fatigue Hx of pilonidal cyst 1990 [place] kid w cr kid I-IV Secondary hyperparathyroidism CKD (chronic kidney disease) stage 3, GFR 30-59 ml/min Neuropathy Hammer toe of right foot GERD (gastroesophageal reflux disease) Elevated PSA Herniated disc 1977 back Bladder cancer Surgical History Surgical History History of neck surgery History of colonoscopy 2006 History of total right knee replacement 2013 History of left knee replacement 1999 History of total hip replacement 08/13/2014 - right hip- [facility]- CC repaired 2015 Family History Family History Father 94 yrs Cardiomyopathy Mother 94 yrs Diabetes Brother Atrial fibrillation Sister No problems noted. Social History Social History (Updated 06/24/24 @ 09:11 by Ramona Bravo CMA) Smoking status: Former smoker Nicotine containing products detail: cigarette one every month or so Second hand tobacco smoke exposure: No Within the past year, how often did you have a drink containing alcohol: monthly or less Within the past year, how many standard drinks containing alcohol did you have on a typical day: 1 or 2 Within the past year, how often did you have six or more drinks on one occasion: never AUDIT-C Alcohol total score: 1 AUDIT-C Alcohol score interpretation: A score less than 4 is consistent with normal alcohol consumption. In the past 12 months, have you used illegal drugs or prescription drugs for non-medical reasons?: No Previous occupational history: Current: Retired Highest level of school completed/degree received: high school graduate Review of Systems ROS Details: All systems reviewed & no additional complaints except as documented General: Patient denied fevers, chills, rigors, weight loss or loss of appetite. Head: Patient denied any headaches or vision changes Thoracic: Patient denied any shortness of breath or cough or hemoptysis Cardiovascular patient denies any chest pain or leg edema GI: Patient denies any nausea vomiting rectal bleed diarrhea : Patient denied gross hematuria. Hematology: Patient denied any bleeding from any source. No easy bruising. Lymphatic: No enlarged LAP anywhere. Skin: Normal skin exam no rashes or suspicious lesions. Neurological patient denies any headache or dizziness or focal weakness or sensory changes. Physical Exam EXAM HEENT normocephalic atraumatic pupils are equal and round Neck supple without thyromegaly or any cervical lymphadenopathy. Chest clear to auscultation bilaterally without wheezing crackles or rhonchi Heart regular rate and rhythm S1-S2 without murmurs gallop or rub Abdomen soft nontender not distended without hepatosplenomegaly or masses clinically Extremities no edema of the lower extremities Skin without any suspicious rashes Lymphatic system no lymphadenopathy in the cervical area axillary areas or inguinal areas bilaterally Neurological exam patient is cooperative alert and oriented x3 no focal deficits. Results - [facility] (Med Onc) LAB RESULTS Corrected WBC, (4.1-10.5) 6.9 X10E3/uL 09/12/24, 09:2 1 Hgb, (13.0-17.0) 11.0 g/dL L 09/12/24, 09:21 Hct, (38.8-50.0) 33.9 % L 09/12/24, 09:21 MCV, (83.5-101) 88.0 fl 09/12/24, 09:21 RDW, (12.0-14.8) 16.0 % H 09/12/24, 09:21 Plt Count, (150-450) 279 x10E3/uL 09/12/24, 09:21 Sodium, (136-145) 139 mmol/L 09/12/24, 09:21 Potassium, (3.5-5.1) 5.0 mmol/L 09/12/24, 09:21 BUN, (7-25) 36 mg/dL H 09/12/24, 09:21 Creatinine, (0.70-1.30) 1.43 mg/dL H 09/12/24, 09:21 Glucose, (70-100) 86 mg/dL 09/12/24, 09:21 Est GFR (CKD-EPI) 49.533 mL/Min 09/12/24, : Calcium, (8.6-10.3) 9.0 mg/dL 09/12/24, 09:21 Total Bilirubin, (0.3-1.0) 0.4 mg/dl 09/12/24, 09: 21 AST, (13-39) 16 U/L 09/12/24, : ALT, (7-52) 14 U/L 09/12/24, : Alkaline Phosphatase, (34-104) 129 U/L H 09/12/24, :21 Total Protein, (6.4-8.9) 6.5 gm/dL 09/12/24, : Albumin, (3.5-5.7) 3.9 gm/dL 09/12/24, :21 Social Determinants of Health Screening SDOH last assessed in clinic: 09/19/24 Will the patient participate in the screening?: Yes Do you worry about having a steady place to live?: No In the past 12 months, have you had to go without electric, gas, oil, or water in your home?: No Have you or anyone in your house had to go without enough food to eat?: No Has lack of reliable transportation kept you from medical appointments or from doing things needed for daily living?: No Has anyone in your support network made you feel unsafe for any reason?: No Does the patient want assistance with any of the above?: No Dictated By: Altaf Das MD DD/ 1030 Signed By: <Electronically signed by Altaf Das MD> 09/19/24 1056 [facility] Work Phone: Reason for referral (narrative)No reason for referral information availableMarymount Hospital Work Phone: Summary Purpose Family History No Family History Records Found Relationship Condition Age at Onset Recorded Date/T vanessa brother Family history of mental disorder Unknown daughterDeceasedUnknownfatherDeceasedUnknownfamily memberDeceasedUnknown grandparentDeceasedUnknownNot SpecifiedDeceasedUnknown Relationship Condition Age at Onset Recorded Date/T vanessa father Unknown CardiomyopathyUnknownmotherDeceasedUnknownDiabetes mellitusUnknownbrotherAtrial fibrillationUnknown Advance Directives No Advanced Directives Records Found Advance Directive Response Recorded Date/ Time Advance Directives No November 09, 2016 11:15am Advance Directive Response Recorded Date/ Time Advance Directives No November 09, 2016 10:15am Chief Complaint and Reason for Visit Chief Complaint E78.5 R73.9 R79.89 Chief Complaint E78.5 R73.9 R79.89 n18.30 i12.9 n25.81 e78.5 see order Chief Complaint E78.5 R73.9 D64.9 R7 9.89 Chief Complaint E78.5 R73.9 D64.9 R7 9.89 e78.5 R73.9 d64.9 r79.89 Chief Complaint M79.671 z12.11 E78.5 r73.9 r79.89 D64.9 N18.30 I12.9 N25.81 E78. Chief Complaint discuss brace for fo ot drop review labsReason for VisitFoot drop, right Anemia Elevated alkaline phosphatase level Elevated PSA Fatigue GERD (gastroesophageal reflux disease) Hyperglycemia Hyperlipidemia Hypertension Irregular heart beat Other abnormal blood chemistry Shortness of breath Chief Complaint discuss brace for fo ot drop review labs possible afib, sent by Marifer for VisitFoot drop, right Anemia Elevated alkaline phosphatase level Elevated PSA Fatigue GERD (gastroesophageal reflux disease) Hyperglycemia Hyperlipidemia Hypertension Irregular heart beat Other abnormal blood chemistry Shortness of breath Atrial fibrillation with RVR Elevated brain natriuretic peptide (BNP) level Hypomagnesemia Chief Complaint discuss brace for fo ot drop review labs possible afib, sent by dr bates afib, sent by Marifer for VisitFoot drop, right Anemia Elevated alkaline phosphatase level Elevated PSA Fatigue GERD (gastroesophageal reflux disease) Hyperglycemia Hyperlipidemia Hypertension Irregular heart beat Other abnormal blood chemistry Shortness of breath Atrial fibrillation with RVR Elevated brain natriuretic peptide (BNP) level Fatigue GERD (gastroesophageal reflux disease) Hyperlipidemia Hypertension Hypomagnesemia Chief Complaint review labs possible afib, sent by dr paulo hart, sent by dr Giordano Documentation left leg laceractionReason for VisitAnemia Elevated alkaline phosphatase level Elevated PSA Hyperglycemia Irregular heart beat Other abnormal blood chemistry Shortness of breath Atrial fibrillation with RVR Elevated brain natriuretic peptide (BNP) level Hypomagnesemia Chief Complaint review labs possible afib, sent by dr paulo hart, sent by dr Giordano Documentation left leg laceraction AfibReason for VisitAnemia Elevated alkaline phosphatase level Elevated PSA Hyperglycemia Irregular heart beat Other abnormal blood chemistry Shortness of breath Atrial fibrillation with RVR Elevated brain natriuretic peptide (BNP) level Hypomagnesemia Laceration of left lower extremity excluding thigh Chief Complaint review labs possible afib, sent by dr paulo hart, sent by dr Giordano Documentation left leg laceraction Afib [place] [facility] [place] [facility] 07/27Reason for VisitAnemia Elevated alkaline phosphatase level Elevated PSA Hyperglycemia Irregular heart beat Other abnormal blood chemistry Shortness of breath Atrial fibrillation with RVR Elevated brain natriuretic peptide (BNP) level Hypomagnesemia Laceration of left lower extremity excluding thigh Atrial fibrillation Irregular heart beat Chief Complaint review labs possible afib, sent by dr paulo hart, sent by dr Giordano Documentation left leg laceraction Afib Afib [facility] [place] [facility] 07/27Reason for VisitAnemia Elevated alkaline phosphatase level Elevated PSA Hyperglycemia Hyperlipidemia Hypertension Irregular heart beat Other abnormal blood chemistry Shortness of breath Hyperlipidemia Hypertension Atrial fibrillation with RVR Elevated brain natriuretic peptide (BNP) level Hypomagnesemia Laceration of left lower extremity excluding thigh Atrial fibrillation Irregular heart beat CKD (chronic kidney disease) stage 3, GFR 30-59 ml/min Hyperlipidemia Hypertension Irregular heart beat Persistent atrial fibrillation Chief Complaint review labs possible afib, sent by dr paulo hart, sent by dr Giordano Documentation left leg laceraction Afib Afib [facility] [place] [facility] 07/27 UnknownReason for VisitAnemia Elevated alkaline phosphatase level Elevated PSA Hyperglycemia Hyperlipidemia Hypertension Irregular heart beat Other abnormal blood chemistry Shortness of breath Hyperlipidemia Hypertension Atrial fibrillation with RVR Elevated brain natriuretic peptide (BNP) level Hypomagnesemia Laceration of left lower extremity excluding thigh Atrial fibrillation Irregular heart beat CKD (chronic kidney disease) stage 3, GFR 30-59 ml/min Hyperlipidemia Hypertension Irregular heart beat Persistent atrial fibrillation Chief Complaint [facility] [place] [facility] I48.91 Unknown 3 monthsReason for VisitCKD (chronic kidney disease) stage 3, GFR 30-59 ml/min Hyperlipidemia Hypertension Irregular heart beat Persistent atrial fibrillation Chief Complaint [facility] [place] [facility] I48.91 Unknown 3 monthsReason for VisitCKD (chronic kidney disease) stage 3, GFR 30-59 ml/min Hyperlipidemia Hypertension Irregular heart beat Persistent atrial fibrillation CKD (chronic kidney disease) stage 3, GFR 30-59 ml/min Hyperlipidemia Hypertension Irregular heart beat Persistent atrial fibrillation Chief Complaint Admit Date 3 months November 21, 2023 1 :14pm I48.91 November 21, 2023 1 :18pm Z12.11 - Encounter for screening for mal ignant ze December 14, 2023 11:19am z79.899 December 15, 2023 1 0:52am Reason for Visit Admit Date CKD (chronic kidney disease) stage 3, GF R 30-59 ml/min November 21, 2023 1:14pm Hyperlipidemia November 21, 2023 1 :14pm Hypertension November 21, 2023 1 :14pm Irregular heart beat November 21, 2023 1:14pm Persistent atrial fibrillation November 062023 1:14pm Chief Complaint Admit Date 3 November 21, 2023 1 :14pm I48.91 November 21, 2023 1 :18pm Z12.11 - Encounter for screening for mal ignant ze December 14, 2023 11:19am z79.899 December 15, 2023 1 0:52am RENAL 1 year follow up December 17 8:56am Reason for Visit Admit Date CKD (chronic kidney disease) stage 3, GF R 30-59 ml/min November 21, 2023 1:14pm Hyperlipidemia November 21, 2023 1 :14pm Hypertension November 21, 2023 1 :14pm Irregular heart beat November 21, 2023 1:14pm Persistent atrial fibrillation November 062023 1:14pm Anemia of renal disease December 17, 2 024 8:56am Bladder cancer December 18, 2023 8:56am CKD (chronic kidney disease) stage 3, GF R 30-59 ml/min December 18, 2023 8:56am Hyperlipidemia December 18, 2023 8:56am Hypertensive chronic kidney disease with stage 1 through stage 4 chronic ki December 18, 2023 8:56am Hyperuricemia December 18, 2023 8:56am Prediabetes December 18, 2023 8:56am Proteinuria December 18, 2023 8:56am Secondary hyperparathyroidism December 072023 8:56am Chief Complaint Admit Date 3 months November 21, 2023 1 :14pm I48.91 November 21, 2023 1 :18pm Z12.11 - Encounter for screening for mal ignant ze December 14, 2023 11:19am z79.899 December 15, 2023 1 0:52am RENAL 1 year follow up December 17 8:56am review labs December 21, 2023 9:56am Chief Complaint Admit Date Z12.11 - Encounter for screening for mal ignant ze December 14, 2023 11:19am z79.899 December 15, 2023 1 0:52am RENAL 1 year follow up December 17 8:56am review labs December 21, 2023 9:56am ref by Juvencio Sanchez for aortic aneurysm January 02, 2024 10:43am lt knee inj, @ home January 15, 2024 1 :05pm NEW Bence Long proteinuria January 3:06pm Bence Long Proteinuria February 01, 1:29pm r80.3 r80.9 February 27, 2024 9 :05am Reason for Visit Admit Date Anemia of renal disease December 17, 2 024 8:56am Bladder cancer December 18, 2023 8:56am CKD (chronic kidney disease) stage 3, GF R 30-59 ml/min December 18, 2023 8:56am Hyperlipidemia December 18, 2023 8:56am Hypertensive chronic kidney disease with stage 1 through stage 4 chronic ki December 18, 2023 8:56am Hyperuricemia December 18, 2023 8:56am Prediabetes December 18, 2023 8:56am Proteinuria December 18, 2023 8:56am Secondary hyperparathyroidism December 072023 8:56am Anemia of renal disease December 20, 2 024 9:56am Atrial fibrillation December 21, 2023 9:56am CKD (chronic kidney disease) stage 3, GF R 30-59 ml/min December 21, 2023 9:56am Hyperlipidemia December 21, 2023 9:56am Hypertension December 21, 2023 9:56am Prediabetes December 21, 2023 9:56am Abdominal aortic aneurysm (A AA) 3.0 cm to 5.5 cm in diameter in male January 02, 2024 10:43am Anemia of renal disease January 31, 2 024 3:06pm Bence Long protein February 01, 2024 3:06pm CKD (chronic kidney disease) stage 3, GF R 30-59 ml/min February 01, 2024 3:06pm Proteinuria February 01, 2024 3:06pm Chief Complaint Admit Date z79.899 December 15, 2023 1 0:52am RENAL 1 year follow up December 17 8:56am review labs December 21, 2023 9:56am ref by Juvencio Sanchez for aortic aneurysm January 02, 2024 10:43am lt knee inj, @ home January 15, 2024 1 :05pm NEW Bence Long proteinuria January 3:06pm r80.3 r80.9 February 27, 2024 9 :05am Follow Up after Biopsy March 14 1:40pm Reason for Visit Admit Date Anemia of renal disease December 17 024 8:56am Bladder cancer December 18, 2023 8:56am CKD (chronic kidney disease) stage 3, GF R 30-59 ml/min December 18, 2023 8:56am Hyperlipidemia December 18, 2023 8:56am Hypertensive chronic kidney disease with stage 1 through stage 4 chronic ki December 18, 2023 8:56am Hyperuricemia December 18, 2023 8:56am Prediabetes December 18, 2023 8:56am Proteinuria December 18, 2023 8:56am Secondary hyperparathyroidism December 072023 8:56am Anemia of renal disease December 20, 2 024 9:56am Atrial fibrillation December 21, 2023 9:56am CKD (chronic kidney disease) stage 3, GF R 30-59 ml/min December 21, 2023 9:56am Hyperlipidemia December 21, 2023 9:56am Hypertension December 21, 2023 9:56am Prediabetes December 21, 2023 9:56am Abdominal aortic aneurysm (A AA) 3.0 cm to 5.5 cm in diameter in male January 02, 2024 10:43am Anemia of renal disease January 31, 2 024 3:06pm Bence Long protein February 01, 2024 3:06pm CKD (chronic kidney disease) stage 3, GF R 30-59 ml/min February 01, 2024 3:06pm Proteinuria February 01, 2024 3:06pm Anemia of renal disease March 14 1:40pm Bence Long protein March 14, 2024 1 :40pm CKD (chronic kidney disease) stage 3, GF R 30-59 ml/min March 14, 2024 1:40pm Proteinuria March 14, 2024 1 :40pm Chief Complaint Admit Date r80.3 r80.9 February 27, 2024 9 :05am Follow Up after Biopsy March 14 1:40pm 6 months May 20, 2024 1:4 2pm Reason for Visit Admit Date Anemia of renal disease March 14 1:40pm Bence Long protein March 14, 2024 1 :40pm CKD (chronic kidney disease) stage 3, GF R 30-59 ml/min March 14, 2024 1:40pm Proteinuria March 14, 2024 1 :40pm Reason for Visit Admit Date Anemia of renal disease March 14 1:40pm Bence Long protein March 14, 2024 1 :40pm CKD (chronic kidney disease) stage 3, GF R 30-59 ml/min March 14, 2024 1:40pm Proteinuria March 14, 2024 1 :40pm CKD (chronic kidney disease) stage 3, GF R 30-59 ml/min May 20, 2024 1:42pm Hyperlipidemia May 20, 2024 1:4 2pm Hypertension May 20, 2024 1:4 2pm Irregular heart beat May 20, 2024 1: 42pm Persistent atrial fibrillation May 1:42pm Chief Complaint Admit Date Follow Up after Biopsy March 14 1:40pm 6 months May 20, 2024 1:4 2pm I48.91 May 20, 2024 2:0 3pm telephone/cough June 11, 2024 2:17pm Reason for Visit Admit Date Anemia of renal disease March 14 1:40pm Bence Long protein March 14, 2024 1 :40pm CKD (chronic kidney disease) stage 3, GF R 30-59 ml/min March 14, 2024 1:40pm Proteinuria March 14, 2024 1 :40pm CKD (chronic kidney disease) stage 3, GF R 30-59 ml/min May 20, 2024 1:42pm Hyperlipidemia May 20, 2024 1:4 2pm Hypertension May 20, 2024 1:4 2pm Irregular heart beat May 20, 2024 1: 42pm Persistent atrial fibrillation May 1:42pm Acute cough June 11, 2024 2:17pm Body aches June 11, 2024 2:17pm Persistent atrial fibrillation June 11, 2024 2:17pm Chief Complaint Admit Date 6 May 20, 2024 1:4 2pm I48.91 May 20, 2024 2:0 3pm telephone/cough June 11, 2024 2:17pm Chronic Kidney Disease June 18, 2024 8: 51am sent by June 18, 2024 2:51p m Reason for Visit Admit Date CKD (chronic kidney disease) stage 3, GF R 30-59 ml/min May 20, 2024 1:42pm Hyperlipidemia May 20, 2024 1:4 2pm Hypertension May 20, 2024 1:4 2pm Irregular heart beat May 20, 2024 1: 42pm Persistent atrial fibrillation May 1:42pm Acute cough June 11, 2024 2:17pm Body aches June 11, 2024 2:17pm Persistent atrial fibrillation June 11, 2024 2:17pm Chief Complaint Admit Date RENAL 6 month f/u June 24, 2024 8:58a m review labs June 25, 2024 9:50a m Follow Up 6 Months September 19, 2024 10 :28am Bence Long Proteinuria September 19 10:29am Reason for Visit Admit Date Anemia of renal disease June 24, 2024 8 :58am Bladder cancer June 24, 2024 8:58a m CKD (chronic kidney disease) stage 3, GF R 30-59 ml/min June 24, 2024 8:58am Hyperlipidemia June 24, 2024 8:58a m Hypertensive chronic kidney disease with stage 1 through stage 4 chronic ki June 24, 2024 8:58am Hyperuricemia June 24, 2024 8:58a m Prediabetes June 24, 2024 8:58a m Proteinuria June 24, 2024 8:58a m Secondary hyperparathyroidism June 24, 2024 8:58am Abdominal aortic aneurysm (A AA) 3.0 cm to 5.5 cm in diameter in male June 25, 2024 9:50am Acute cough June 25, 2024 9:50a m Anemia June 25, 2024 9:50a m Bladder cancer June 25, 2024 9:50a m CKD (chronic kidney disease) stage 3, GF R 30-59 ml/min June 25, 2024 9:50am Hyperglycemia June 25, 2024 9:50a m Hyperlipidemia June 25, 2024 9:50a m Hypertension June 25, 2024 9:50a m Persistent atrial fibrillation June 25, 2024 9:50am Anemia of renal disease September 19 10:28am Bence Long protein September 19, 2024 10 :28am CKD (chronic kidney disease) stage 3, GF R 30-59 ml/min September 19, 2024 10:28am Proteinuria September 19, 2024 10 :28am Chief Complaint Admit Date Follow Up 6 September 19, 2024 10 :28am Bence Long Proteinuria September 19 10:29am Left forearm abrasion October 17 9:13am Reason for Visit Admit Date Anemia of renal disease September 19 10:28am Bence Long protein September 19, 2024 10 :28am CKD (chronic kidney disease) stage 3, GF R 30-59 ml/min September 19, 2024 10:28am Proteinuria September 19, 2024 10 :28am Chief Complaint Admit Date Follow Up 6 Months September 19, 2024 10 :28am Bence Long Proteinuria September 19 10:29am Left forearm abrasion October 17 9:13am Large lump on lt arm October 21 3:37pm Reason for Visit Admit Date Anemia of renal disease September 19 10:28am Bence Long protein September 19, 2024 10 :28am CKD (chronic kidney disease) stage 3, GF R 30-59 ml/min September 19, 2024 10:28am Proteinuria September 19, 2024 10 :28am Skin tear October 17, 2024 9:13am Chief Complaint Admit Date Follow Up 6 Months September 19, 2024 10 :28am Bence Long Proteinuria September 19 10:29am Left forearm abrasion October 17 9:13am Large lump on lt arm October 21 3:37pm Amb Documentation October 22, 2024 11:38am 6 month f/u November 07, 2024 12 :49pm Reason for Visit Admit Date Anemia of [...] 2:49pm Persistent atrial fibrillation November 072024 12:49pm Chief Complaint Admit Date Follow Up 6 Months September 19, 2024 10 :28am Bence Long Proteinuria September 19 10:29am Left forearm abrasion October 17 9:13am Large lump on lt arm October 21 3:37pm Amb Documentation October 22, 2024 11:38am 6 month f/u November 07, 2024 12 :49pm I48.91 November 07, 2024 12 :53pm d50.9 d64.9 e78.5 r73.9 r64.4 [id number] Oc tober 2024 8:49am Reason for Referral SpecialtyDiagnoses / ProceduresReferred By ContactReferred To ContactREHAB AND SPORTS THERAPY INS Diagnoses Spinal stenosis of lumbar region with neurogenic claudication Lumbar spondylosis Procedures CONSULT TO PHYSICAL THERAPY PHYSICAL THERAPY EVALUATION HIGH COMPLEX 45 MINS Symone Woody, OYSTER CULLER.COOKEE [address] [place] [address] [facility] [place] [address] [place] [address] Referral IDStatusReasonStart DateExpiration DateVisits RequestedVisits [id number] PCP Requested Referral Auto-Generated Referral 999 Additional Source Comments (unrecognized sect ion and content) No Status Records FoundNo Status Records FoundNo Status Records FoundNo Status Records FoundNo Status Records FoundNo Status Records FoundNo Status Records FoundNo Status Records FoundNo Status Records FoundNo Status Records FoundNo Status Records FoundNo Status Records Found INFORMATION SOURCE (unrecogn ized section and content) DATE CREATED AUTHOR 03/13/2018 [facility] DATE CREATED AUTHOR AUTHOR'S ORGANIZ ATION 06/20/2019 [facility] DATE CREATED AUTHOR AUTHOR'S ORGANIZ ATION 04/08/2020 [facility] DATE CREATED AUTHOR AUTHOR'S ORGANIZ ATION 11/12/2022 [facility] DATE CREATED AUTHOR AUTHOR'S ORGANIZ ATION 03/23/2023 [facility] DATE CREATED AUTHOR AUTHOR'S ORGANIZ ATION 04/02/2024 [facility] DATE CREATED AUTHOR AUTHOR'S ORGANIZ ATION 10/02/2024 [facility] DATE CREATED AUTHOR AUTHOR'S ORGANIZ ATION 10/03/2024 [facility] DATE CREATED AUTHOR AUTHOR'S ORGANIZ ATION 10/04/2024 [facility] DATE CREATED AUTHOR AUTHOR'S ORGANIZ ATION 10/11/2024 [facility] DATE CREATED AUTHOR AUTHOR'S ORGANIZ ATION 12/03/2024 [facility] REASON FOR VISIT (unrecogniz ed section and content) ReasonOnset DateCommentsRefill [id number]/26/2022ReasonCommentsOpened In Error ReasonCommentsAppointment RescheduledReasonCommentsInjection FollowupEpidural 11/07/22ReasonCommentsPainReasonOnset DateCommentsRefill Jaepclb0403/03/2024 Care Team (unrecognized sect ion and content) Team Status: Inactive Member Role Status Dates Juvencio Sanchez DO Primary Care Provider, Attending Pro vider Active Team Status: Active Member Role Status Dates Juvencio Sanchez DO Primary Care Provider Active Team Status: Inactive Member Role Status Dates Juvencio Sanchez DO Primary Care Provider, Referring Pro vider Active Enma Neely ProviderActiveTeam MemberRelationshipSpecialtyStart DateEnd Date Juvencio Sanchez, DO [address] [place] [id number] PCP - [facility]12/15/14 Montserrat Colmenares, ENGINEERING LIBRARIAN [address] [place] [address] Specialty Care CoordinatorOrthwilbertocentral [facility]03/13/15 Kevin Steven PA-C [address] [place] [address] Physician AssistantOrthopedics03/13/15Team MemberRelationshipSpecialtyStart Date End Date Juvencio Sanchez, [address] [place] [address] PCP - [facility]12/15/14 Montserrat Colmenares, ENGINEERING LIBRARIAN [address] [place] [address] Specialty Care CoordinatorOrthopecentral valley general hospital03/13/15 Kevin Steven PA-C [address] [place] [address] Physician AssistantOrthjuve03/13/15Team MemberRelationshipSpecialtyStart Date End Date Juvencio Sanchez DO [address] [place] [address] PCP - [facility]12/15/14 Montserrat Colmenares, ENGINEERING LIBRARIAN [address] [place] [address] Specialty Care CoordinatorOrthopecentral valley general hospital03/13/15 Kevin Steven PA-C [address] [place] [address] Physician AssistantOrthjuve03/13/15 Team Status: Inactive Member Role Status Dates Juvencio Sanchez DO Primary Care Provider Active Jerry Dan ProviderActiveTeam MemberRelationshipSpecialty Start DateEnd Date Juvencio Sanchez, DO [address] [place] [address] PCP - [facility]12/15/14 Montserrat Colmenares, ENGINEERING LIBRARIAN [address] [place] [address] Specialty Care CoordinatorOrtheastern [facility]03/13/15 Kevin Steven PA-C [address] [place] [address] Physician AssistantOrtheastern [facility]03/13/15Team MemberRelationshipSpecialtyStart Date End Date Juvencio Sanchez DO [address] [place] [address] PCP - [facility]12/15/14 Montserrat Colmenares, ENGINEERING LIBRARIAN [address] [place] [address] Specialty Care CoordinatorOrtheastern [facility]03/13/15 Kevin Steven PA-C [address] [place] [address] Physician AssistantOrtheastern [facility]as [facility]03/13/15 Team Status: Inactive Member Role Status Dates Juvencio Sanchez DO Primary Care Provider, Attending Pro vider Active Mireya Pichardo , Heathering ProviderActiveTeam MemberRelationshipSpecialtyStart DateEnd Date Juvencio Sanchez, [address] [place] [address] PCP - [facility]12/15/14 Montserrat Colmenares, ENGINEERING LIBRARIAN [address] [place] [address] Specialty Care CoordinatorOrthopecentral valley [facility]03/13/15 Kevin Steven PA-C [address] [place] [address] Physician AssistantOrthopedics03/13/15Team MemberRelationshipSpecialtyStart Date End Date Juvencio Sanchez MD [address] [place] [id number] PCP - [facility]03/14/23Team MemberRelationshipSpecialtyStart DateEnd Date Juvencio Sanchez DO [address] [place] [address] PCP - [facility]12/15/14 Montserrat Colmenares RNFA [address] [place] [address] Specialty Care CoordinatorOrthopedi03/13/15 Kevin Steven PA-C [address] [place] [address] Physician AssistantOrtheastern [facility]as [facility]03/13/15 Team Status: Inactive Member Role Status Pérez Sanchez DO Primary Care Provide r, Attending Provider Active Start: April 19, 2023 End: April 19, 2023 Team Status: Inactive Member Role Status Pérez Sanchez DO Primary Care Provide r, Attending Provider Active Start: June 27, 2023 End: June 27, 2023 Team Status: Active Member Role Status Dates Juvencio Sanchez DO Primary Care Provider Active S tart: June 27, 2023 Macey Roche ProviderActiveStart: June 27, 2023 Lori Duggan Provider, Attending ProviderActiveStart: June 27, 2023 Anel Duron RNOther ProviderActiveStart: June 27, 2023 Moises Donnelly MDOther ProviderActiveStart: June 27, 2023 Amilcar Song MDOther ProviderActiveStart: June 27, 2023 Radha Ames MDOther ProviderActiveStart: June 27, 2023 Team Status: Inactive Member Role Status Dates Juvencio Sanchez DO Primary Care Provider Active S tart: June 27, 2023 End: June 29piero Nunez DOEmergency ProviderActiveStart: June 27, 2023 End: June 30, 2023Angeli Broderick MDAdmit Provider, Attending ProviderActive Start: June 27, 2023 End: June 30, 2023 Team Status: Active Member Role Status Pérez Sanchez DO Primary Care Provider Active S tart: June 27, 2023 Kevin Nunez DOEmergenterri ProviderActiveStart: June 27, 2023 Angeli Broderick MDAdmit Provider, Other ProviderActiveStart: June 27, 2023 Anel Duron RNOther ProviderActiveStart: June 27, 2023 Juliana Dominique ProviderActiveStart: June 27, 2023 Juliana Kat ProviderActiveStart: June 27, 2023 Radha Ames MDAttending Provider, Other ProviderActiveStart: June 27, 2023 Team Status: Active Member Role Status Pérez Sanchez DO Primary Care Provider Active S tart: June 27, 2023 End: June 29piero Nunez DOEmergency ProviderActiveStart: June 27, 2023 End: June 30, 2023Angeli Broderick MDAdmit Provider, Other ProviderActiveStart: June 27, 2023 End: June 30, 2023Anel Duron RNOther ProviderActiveStart: June 27, 2023 End: June 30, 2023Moises Donnelly MDOther ProviderActiveStart: June 27, 2023 End: June 30, 2023Juliana Kat ProviderActiveStart: June 27, 2023 End: June 30, 2023Radha Ames MDAttending Provider, Other ProviderActive Start: June 27, 2023 End: June 30, 2023 Team Status: Active Member Role Status Pérez Sanchez DO Primary Care Provider Active S tart: July 04, 2023 Tanya Dolan , RNAttending ProviderActiveStart: July 04, 2023 Team Status: Inactive Member Role Status Pérez Sanchez DO Primary Care Provider Active S tart: July 27, 2023 End: July 27, 2023Addis Bell , APRNAttending ProviderActiveStart: July 27, 2023 End: July 27, 2023 Team Status: Inactive Member Role Status Dates Juvencio Sanchez DO Primary Care Provider Active S tart: July 31, 2023 End: July 31, 2023Enma Martinez Provider, Referring Provider ActiveStart: July 31, 2023 End: July 31, 2023 Team Status: Active Member Role Status Dates Radha Ames MD Dividend Deposit Voucher Clerk Active Shiv [facility]varengasearcy hospital Care ProviderActive Team Status: Active Member Role Status Dates Juvencio Sanchez DO Primary Care Provider Active S tart: July 31, 2023 Radha Ames MDReferring Provider, Other ProviderActiveStart: July 31, 2023 Amilcar Song , EDWARDttending ProviderActiveStart: July 31, 2023 Team Status: Active Member Role Status Dates Juvencio Sanchez DO Primary Care Provider Active S tart: August 28, 2023 Liliam Davis , QUALITY REVIEW SPECIALIST-CAttending ProviderActiveStart: August 28, 2023 Team Status: Inactive Member Role Status Dates Juvencio Sanchez DO Primary Care Provider Active S tart: August 28, 2023 End: August 28, 2023Enma Martinez ProviderActiveStart: August 28, 2023 End: August 28, 2023 Team Status: Active Member Role Status Dates Juvencio Sanchez DO Primary Care Provider Active S tart: August 28, 2023 Enma Martinez ProviderActiveStart: August 28, 2023 Team Status: Inactive Member Role Status Dates Juvencio Sanchez DO Primary Care Provider Active S tart: September 19, 2023 End: September 18Enma Syed ProviderActiveStart: September 19, 2023 End: September 19, 2023 Team Status: Active Member Role Status Dates Juvencio Sanchez DO Primary Care Provider Active S tart: September 19, 2023 Enma Mayfield ProviderActiveStart: September 19, 2023 Team Status: Inactive Member Role Status Dates Juvencio Sanchez DO Primary Care Provider Active S tart: November 21, 2023 End: November 21, 2023Erika Martinezending ProviderActiveStart: November 21, 2023 End: November 21, 2023 Team Status: Active Member Role Status Pérez Sanchez DO Primary Care Provider Active S tart: November 21, 2023 Radha Erika Amesending ProviderActiveStart: November 21, 2023 Team Status: Inactive Member Role Status Pérez Sanchez DO Primary Care Provide r, Attending Provider Active Start: December 14, 2023 End: December 14, 2023 Team Status: Inactive Member Role Status Pérez Sanchez DO Primary Care Provide r, Attending Provider Active Start: December 15, 2023 End: December 14Juliana Gaffney ProviderActiveStart: December 15, 2023 End: December 15, 2023 Team Status: Inactive Member Role Status Pérez Sanchez DO Primary Care Provider Active S tart: December 18, 2023 End: December 17Erika Gaffneyending ProviderActiveStart: December 18, 2023 End: December 18, 2023 Team Status: Inactive Member Role Status Pérez Sanchez DO Primary Care Provide r, Attending Provider Active Start: December 21, 2023 End: December 21, 2023Team MemberRelationshipSpecialtyStart DateEnd Date Juvencio Sanchez MD [address] [place] [address] [facility]03/14/23Team MemberRelationshipSpecialtyStart DateEnd Date Juvencio Sanchez MD [address] [place] [address] [facility]03/14/23 Team Status: Inactive Member Role Status Pérez Sanchez DO Primary Care Provider Active S tart: January 02, 2024 End: January 02, 2024Enma Potter ProviderActiveStart: January 02, 2024 End: January 02, 2024 Team Status: Inactive Member Role Status Dates Juvencio Sanchez DO Primary Care Provider Active S tart: January 15, 2024 End: January 15, 2024ESME BabbP-BCEmergency ProviderActiveStart: January 15, 2024 End: January 15, 2024 Team Status: Inactive Member Role Status Dates Juvencio Sanchez DO Primary Care Provider Active S tart: February 01, 2024 End: February 01, 2024Mhd Yaser Al-Marrawi , MDAttending ProviderActiveStart: February 01, 2024 End: January 31bdul Marino , MDReferring ProviderActiveStart: February 01, 2024 End: February 01, 2024 Team Status: Active Member Role Status Dates Juvencio Sanchez DO Primary Care Provider Active S tart: February 02, 2024 Mhd Yaser Al-Marrawi , MDAttending ProviderActiveStart: February 02, 2024 Mireya Marino , MDReferring ProviderActiveStart: February 02, 2024 Team Status: Inactive Member Role Status Dates Juvencio Sanchez DO Primary Care Provider Active S tart: February 27, 2024 End: February 27, 2024Mhd Yaser Al-Marrawi , MDAttending ProviderActiveStart: February 27, 2024 End: February 27, 2024Team MemberRelationshipSpecialtyStart DateEnd Date Juvencio Sanchez DO [address] [place] [id number] PCP - GeneralFamily Yvciumay38/9/15 Montserrat Colmenares RNFA [address] [place] [address] Specialty Care CoordinatorOrthopedi03/13/15 Kevin Steven PA-C [address] [place] [address] Physician AssistantOrthopedics03/13/15 Team Status: Inactive Member Role Status Dates Juvencio Sanchez DO Primary Care Provider Active S tart: March 14, 2024 End: March 14, 2024d Enma Salmeron ProviderActiveStart: March 14, 2024 End: March 14Bud Gaffney ProviderActiveStart: March 14, 2024 Team MemberRelationshipSpecialtyStart DateEnd Date Juvencio Sanchez MD [address] [place] [address] PCP - [facility]03/14/23 Team Status: Inactive Member Role Status Dates Juvencio Sanchez DO Primary Care Provider Active S tart: May 20, 2024 End: May 20, 2024Enma Martinez ProviderActiveStart: May 20, 2024 End: May 20, 2024 Team Status: Active Member Role Status Dates Juvencio Sanchez DO Primary Care Provider Active S tart: May 20, 2024 Enma Martinez ProviderActiveStart: May 20, 2024 Team Status: Inactive Member Role Status Pérez Sanchez DO Primary Care Provide r, Attending Provider Active Start: June 11, 2024 End: June 11, 2024 Team Status: Active Member Role Status Pérez Sanchez DO Primary Care Provide r, Attending Provider Active Start: June 18, 2024 Juliana Neely ProviderActiveStart: June 18, 2024 Team Status: Inactive Member Role Status Pérez Sanchez DO Primary Care Provider Active S tart: June 18, 2024 End: June 18Nataliia Vazquez ProviderActiveStart: June 18, 2024 End: June 18, 2024 Team Status: Inactive Member Role Status Péerz Sanchez DO Primary Care Provide r, Attending Provider Active Start: June 18, 2024 End: June 18Juliana Gaffney ProviderActiveStart: June 18, 2024 End: June 18, 2024Team MemberRelationshipSpecialtyStart DateEnd Date Juvencio Sanchez MD [facility]03/14/23Team MemberRelationshipSpecialtyStart DateEnd Date Juvencio Sanchez MD PCP - [facility]03/14/23 Team Status: Inactive Member Role Status Dates Juvencio Sanchez DO Primary Care Provider Active S tart: June 24, 2024 End: June 24bdolaf Pichardo , MDAttending ProviderActiveStart: June 24, 2024 End: June 24, 2024 Team Status: Inactive Member Role Status Dates Juvencio Sanchez DO Primary Care Provider Active S tart: June 25, 2024 End: June 25, 2024Dasingh Sanchez DOAttending ProviderActiveStart: June 25, 2024 End: June 25, 2024 Team Status: Inactive Member Role Status Dates Juvencio Sanchez DO Primary Care Provider Active S tart: September 19, 2024 End: September 19, 2024Mhd Andrea Das , MDAttending ProviderActiveStart: September 19, 2024 End: September 19, 2024 Team Status: Active Member Role Status Dates Juvencio Sanchez DO Primary Care Provider Active S tart: September 19, 2024 Mhd Andrea Das , MDAttending ProviderActiveStart: September 19, 2024 Mireyaolaf Pichardo , MDReferring ProviderActiveStart: September 19, 2024 Team MemberRelationshipSpecialtyStart DateEnd Date Juvencio Sanchez MD [address] [place] [address] [place] [address] PCP - [facility]08/22/24Team MemberRelationshipSpecialtyStart DateEnd Date Juvencio Sanchez MD [address] [place], [place] [id number] PCP - [facility]08/22/24 Team Status: Inactive Member Role Status Dates Juvencio Sanchez DO Primary Care Provider Active S tart: October 17, 2024 End: October 17, 2024Lashawn Pineda APRN QUALITY REVIEW SPECIALIST-CAttending Provider ActiveStart: October 17, 2024 End: October 17, 2024 Team Status: Inactive Member Role Status Dates Juvencio Sanchez DO Primary Care Provider Active S tart: October 21, 2024 End: October 21, 2024Alexsandra Mock ProviderActiveStart: October 21, 2024 End: October 21, 2024 Team Status: Active Member Role Status Pérez Sanchez DO Primary Care Provider Active S tart: October 22, 2024 ELAN PathakAAttenilan ProviderActiveStart: October 22, 2024 Team Status: Inactive Member Role Status Pérez Sanchez DO Primary Care Provider Active S tart: November 07, 2024 End: November 07, 2024Radha Ames MDAttending ProviderActiveStart: November 07, 2024 End: November 07, 2024 Team Status: Active Member Role Status Pérez Sanchez DO Primary Care Provider Active S tart: November 07, 2024 Radha Ames MDAttending ProviderActiveStart: November 07, 2024 Team Status: Active Member Role/Relationship Status Dates aRdha Ames MD Dividend Deposit Voucher Clerk Active [facility] hospital Care ProviderActive Team Status: Inactive Member Role/Relationship Status Pérez Sanchez DO Primary Care Provider Active S tart: September 19, 2024 End: September 19, 2024Mhd Andrea Al-Marranicolas , MDAttending ProviderActiveStart: September 19, 2024 End: September 19, 2024 Team Status: Active Member Role/Relationship Status Pérez Sanchez DO Primary Care Provider Active S tart: September 19, 2024 Mhd Yaser Al-Marranicolas , MDAttending ProviderActiveStart: September 19, 2024 MARIYA Neelyeferring ProviderActiveStart: September 19, 2024 Team Status: Inactive Member Role/Relationship Status Pérez Sanchez DO Primary Care Provider Active S tart: October 17, 2024 End: October 17, 2024Lashawn Pineda APRN QUALITY REVIEW SPECIALIST-CAttending Provider ActiveStart: October 17, 2024 End: October 17, 2024 Team Status: Inactive Member Role/Relationship Status Dates Juvencio Snachez DO Primary Care Provider Active S tart: October 21, 2024 End: October 21, 2024BRIDGET Mock-Emmanuelle ProviderActiveStart: October 21, 2024 End: October 21, 2024 Team Status: Active Member Role/Relationship Status Dates Juvencio Sanchez DO Primary Care Provider Active S tart: October 22, 2024 Amber Pathak ProviderActiveStart: October 22, 2024 Team Status: Inactive Member Role/Relationship Status Dates Juvencio Sanchez DO Primary Care Provider Active S tart: November 07, 2024 End: November 07, 2024Linsamina Ames , MDAttending ProviderActiveStart: November 07, 2024 End: November 07, 2024 Team Status: Inactive Member Role/Relationship Status Dates Juvencio Sanchez DO Primary Care Provider Active S tart: November 07, 2024 End: November 07, 2024Linsamina Ames , MDAttending ProviderActiveStart: November 07, 2024 End: November 07, 2024 Team Status: Inactive Member Role/Relationship Status Dates Juvencio Sanchez DO Primary Care Provider Active S tart: November 25, 2024 End: November 25, 2024Dasingh Michaelblair DOAttending ProviderActiveStart: November 25, 2024 End: November 25, 2024 Team Status: Inactive Member Role/Relationship Status Pérez Sanchez DO Primary Care Provider Active S tart: November 26, 2024 End: November 26bdolaf Pichardo , MDAttending ProviderActiveStart: November 26, 2024 End: November 26, 2024 Goals (unrecognized section and content) Goals may be documented in a n alternate section Source Comments (unrecognize d section and content) In the event this informatio n is protected by the Federal Confidentiality of Alcohol and Drug Abuse Patient Records regulations: The Federal rules restrict any use of the information to criminally investigate or prosecute any alcohol or drug abuse patient.[facility] HospitalIn the event this information is protected by the Federal Confidentiality of Alcohol and Drug Abuse Patient Records regulations: The Federal rules restrict any use of the information to criminally investigate or prosecute any alcohol or drug abuse patient.[facility] HospitalIn the event this information is protected by the Federal Confidentiality of Alcohol and Drug Abuse Patient Records regulations: The Federal rules restrict any use of the information to criminally investigate or prosecute any alcohol or drug abuse patient.[facility] HospitalIn the event this information is protected by the Federal Confidentiality of Alcohol and Drug Abuse Patient Records regulations: The Federal rules restrict any use of the information to criminally investigate or prosecute any alcohol or drug abuse patient.[facility] HospitalIn the event this information is protected by the Federal Confidentiality of Alcohol and Drug Abuse Patient Records regulations: The Federal rules restrict any use of the information to criminally investigate or prosecute any alcohol or drug abuse patient.[facility] HospitalIn the event this information is protected by the Federal Confidentiality of Alcohol and Drug Abuse Patient Records regulations: The Federal rules restrict any use of the information to criminally investigate or prosecute any alcohol or drug abuse patient.[facility] HospitalIn the event this information is protected by the Federal Confidentiality of Alcohol and Drug Abuse Patient Records regulations: The Federal rules restrict any use of the information to criminally investigate or prosecute any alcohol or drug abuse patient.[facility] HospitalIn the event this information is protected by the Federal Confidentiality of Alcohol and Drug Abuse Patient Records regulations: The Federal rules restrict any use of the information to criminally investigate or prosecute any alcohol or drug abuse patient.[facility] HospitalIn the event this information is protected by the Federal Confidentiality of Alcohol and Drug Abuse Patient Records regulations: The Federal rules restrict any use of the information to criminally investigate or prosecute any alcohol or drug abuse patient.[facility] FOR RECORDS PERTAINING TO PATIENTS WHO ARE OR HAVE BEEN ENROLLED IN A CHEMICAL DEPENDENCY/SUBSTANCEABUSE PROGRAM, SOME INFORMATION MAY BE OMITTED. This clinical summary was aggregated from multiple sources. Caution should be exercised in using it in the provision of clinical care. This summary normalizes information from multiple sources, and as a consequence, information in this document may materially change the coding, format and clinical context of patient data. In addition, data may be omitted in some cases. CLINICAL DECISIONS SHOULD BE BASED ON THE PRIMARY CLINICAL RECORDS. [facility]. provides no warranty or guarantee of the accuracy or completeness of information in this document.
--- NOTE | 2024-12-11 10:31 | XR_ITS ---
The [address] [address] Patient Name: [place] MCMAHAN MRN: [id number] date: 1945 Sex: M Assigned Patient Location: [facility] Current Patient Location: [facility] Accession/Order Number: [id number] Exam Date: 12/11/2024 10:37 Report Date: 12/11/2024 11:05 At the request of: JUVENCIO SANCHEZ Procedure: XR lumbar spine 2-3V LUMBAR SPINE - 3 views COMPARISON: CT 08/28/2023 CLINICAL DATA: Chronic back pain. No recent injury. AP, lateral lumbar and lumbosacral views were obtained. There is osteopenia. No acute compression fractures are identified. No significant displacement is seen. No disproportionate disc space narrowing is identified. There is endplate spurring throughout. Lower lumbar facet hypertrophy is seen. 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 A partially imaged screw from a right hip prosthesis is noted. There is atherosclerotic plaque at the aorta and iliac arteries. XR/XR lumbar spine 2-3V IMPRESSION: OSTEOPENIA AND DEGENERATIVE CHANGES. NO ACUTE BONY FINDINGS. Impression dictated by: Melania Lyle M.D. 12/11/2024 11:05 AM Dictation Location: [place] [address] Electronically authenticated by: [id number] Y Date: 12/11/2024 11:05
== END 2024-12-11 10:21 | disposition home or self-care (01) ==
PROVIDERS: PCP Family Medicine; Visit Provider Family Medicine
DX: M54.50 Low back pain, unspecified (principal); M85.88 Other specified disorders of bone density and structure, other site; M51.369 Other intervertebral disc degeneration, lumbar region without mention of lumbar back pain or lower extremity pain
CPT/HCPCS: 72100